=== PATIENT | male | born 1950 | race Two or more races ===

== ENCOUNTER 2018-09-26 14:07 | Inpatient (IN) | payer MEDICAID ==
[~2018-09-26] VITALS: Ht 167.6 cm; Wt 60.3 kg
[2018-09-26] VITALS (7 sets, daily range): BP systolic 86–113; BP diastolic 37–67
--- NOTE | 2018-09-26 12:29 | NUR ---
CASE MANAGEMENT: REVIEW 68/M BIBA FROM STREET CC: HEMATURIA SI: CYSTITIS . DEHYDRATION . HEMATURIA . ALCOHOL WITHDRAWAL T 99.9 HR 132 RR 13 BP 64/39 SAT 94% ROOM AIR WBC 20.2 H/H 13.3/41.2 LACTIC ACID 4.90 IS: NS IVF BOLUS X1 CEFTRIAXONE IV X1 PATIENT ADMITTED TO TELEMETRY UNIT 09/26/2018 DCP: PATIENT IS FROM STREET
[~2018-09-26 14:07] MED LIST: NKM
--- NOTE | 2018-09-26 14:15 | NUR ---
ED Nurse Note: brought in by ambulance from street due to hematuria since this morning. A/Ox4. No active bleeding at the site at this time.
[2018-09-26 14:43] LABS: HEMATOCRIT 41.2 % (42.0-52.0); HEMOGLOBIN 13.3 G/DL (14.2-18.0); MEAN CORPUSCULAR VOLUME 97 FL (80-99); PLATELET COUNT 112 K/UL (150-450); RED BLOOD COUNT 4.26 M/UL (4.70-6.10); RED CELL DISTRIBUTION WIDTH 16.4 % (11.6-14.8); WHITE BLOOD COUNT 20.2 K/UL (4.8-10.8)
[2018-09-26] MEDS ORDERED: Isovue-300 100ml vial INJ PRN (14:45)
[2018-09-26 14:57] LABS: INR 1.1 (0.9-1.1)
[2018-09-26 15:04] LABS: ANION GAP 25 mmol/L (5-15); BLOOD UREA NITROGEN 13 mg/dL (7-18); CALCIUM 8.8 MG/DL (8.5-10.1); CARBON DIOXIDE 14 MMOL/L (21-32); CHLORIDE 103 MMOL/L (98-107); CREATININE 2.3 MG/DL (0.55-1.30); POTASSIUM 3.2 MMOL/L (3.5-5.1); SODIUM 142 MMOL/L (136-145)
[2018-09-26 15:06] LABS: APPEARANCE,URINE CLOUDY; BILIRUBIN, URINE NEGATIVE (NEGATIVE); GLUCOSE, URINE (UA) NEGATIVE (NEGATIVE); KETONES,URINE 1+ (NEGATIVE); LEUKOCYTE ESTERASE ,URINE 3+ (NEGATIVE); NITRITE,URINE POSITIVE (NEGATIVE); PH,URINE 8 (4.5-8.0); PROTEIN,URINE 4+ (NEGATIVE); UROBILINOGEN,URINE 1 MG/DL (0.0-1.0)
[2018-09-26 15:14] LABS: ALANINE AMINOTRANSFERASE 39 U/L (12-78); ALBUMIN 3.2 G/DL (3.4-5.0); ALBUMIN/GLOBULIN RATIO 0.7 (1.0-2.7); ALKALINE PHOSPHATASE 122 U/L (46-116); ASPARTATE AMINO TRANSFERASE 115 U/L (15-37); BILIRUBIN,DIRECT 0.6 MG/DL (0.0-0.3); BILIRUBIN,TOTAL 1.2 MG/DL (0.2-1.0)
--- NOTE | 2018-09-26 15:28 | NUR ---
ED Nurse Note: pt sent down to CT via [facility]
[2018-09-26 15:35] LABS: COLOR,URINE ORANGE
[2018-09-26] MEDS ORDERED: cefTRIAXone 1 GM in NS 55 ML IVPB ONE (15:45)
--- NOTE | 2018-09-26 15:51 | NUR ---
ED Nurse Note: contacted sugar laboratory assistant to run type and screen
--- NOTE | 2018-09-26 17:31 | NUR ---
ED Nurse Note: LACTIC ACID AND BLOOD CULTURES SENT DOWN TO THE LAB.
[2018-09-26] MEDS ORDERED: D5 1/2NS 1,000 ML IV SCH (17:56)
[2018-09-26] MEDS ORDERED: Miralax 17gm pkt ORAL PRN (18:00)
[2018-09-26] MEDS ORDERED: Morphine Sulfate 2mg/ml Inj(IV/IM USE ONLY) IV PRN (18:00)
[2018-09-26] MEDS ORDERED: Mylanta II UD 30ml ORAL PRN (18:00)
[2018-09-26] MEDS ORDERED: Morphine Sulfate 2mg/ml Inj(IV/IM USE ONLY) IVP PRN (18:00)
[2018-09-26] MEDS ORDERED: Nitroglycerin Subl 0.4mg tab SL PRN (18:00)
--- NOTE | 2018-09-26 18:30 | NUR ---
ED Nurse Note: lactic acid reflex sent down to the lab.
--- NOTE | 2018-09-26 19:30 | NUR ---
HAND-OFF: Report given to YING Alexandre. No s/s of distress. Attempted to give telephone report to Tele, but unable to give report at this time.
--- NOTE | 2018-09-26 19:30 | NUR ---
ED Nurse Note: received report from RN Luann and endorsed care, pt sinus tach on clinical team manager, vss, resp even and unlabored on RA, attempted giving report to tele floor but won't accept pt due to lactic, ERMD and charge nurse notified.
--- NOTE | 2018-09-26 19:30 | NUR ---
ED Nurse Note: pt iv intact and valle cath intact.
--- NOTE | 2018-09-26 19:51 | NUR ---
Telemetry floor will not accept patient due to lactic acid astill high, per tele-at least below 4. Will hidrate patient and repeat lactic acid. aware.
--- NOTE | 2018-09-26 20:36 | NUR ---
ED Nurse Note: 3rd redraw lactic sent.
--- NOTE | 2018-09-26 20:47 | History & Physical ---
History and Physical History & Physicial Last 24 Hour Vital Signs Date Time Temp Pulse Resp B/P (MAP) Pulse Ox O2 Delivery O2 Flow Rate FiO2 09/26/18 19:15 130 20 Room Air 09/26/18 18:30 133 18 107/45 100 Room Air 09/26/18 16:20 130 15 89/53 100 Room Air 09/26/18 14:15 99.9 132 13 86/50 100 Room Air 09/26/18 14:07 99.9 114 18 64/39 94 Room Air The patient was seen and examined at bedside and all new and available data was reviewed in the patients chart. F/U Labs (Patient was seen earlier today. Signature timestamp does not reflect patient encounter time) Benjamin Bosch MD, MD Sep 26, 2018 20:47
[2018-09-26] MEDS ORDERED: Heparin 5000 units/ml inj SUBQ SCH (21:00)
--- NOTE | 2018-09-26 21:48 | Emergency Room Report ---
History of Present Illness General Chief Complaint: Male Urogenital Problems Source: Patient Present Illness HPI 68-year-old male presents to ED for evaluation. Brought in by EMS with hematuria 1 day. Also noted to be hypotensive. History of alcohol use. Denies any blood thinners. Denies pain. Denies fevers or chills. History is limited as per patient intoxication. No other aggravating relieving factors. Denies any other associated symptoms Allergies: Coded Allergies: No Known Allergies (Unverified , 09/06/15) Patient History Past Medical History: none Past Surgical History: none Pertinent Family History: none Social History: Reports: alcohol use; Denies: smoking, drug use Immunizations: UTD Reviewed Nursing Documentation: PMH: Agreed; PSxH: Agreed Nursing Documentation-PMH Past Medical History: No Stated History Review of Systems All Other Systems: negative except mentioned in HPI Physical Exam Vital Signs Date Time Temp Pulse Resp B/P (MAP) Pulse Ox O2 Delivery O2 Flow Rate FiO2 09/26/18 14:07 99.9 114 18 64/39 94 Room Air Sp02 EP Interpretation: reviewed, normal General Appearance: alert, GCS 15, non-toxic, other - tremulous Head: normocephalic, atraumatic Eyes: bilateral eye normal inspection, bilateral eye PERRL ENT: hearing grossly normal, normal pharynx, no angioedema, normal voice Neck: full range of motion, supple/symm/no masses Respiratory: chest non-tender, lungs clear, normal breath sounds, speaking full sentences Cardiovascular #1: regular rate, rhythm, no edema Cardiovascular #2: 2+ carotid (R), 2+ carotid (L), 2+ radial (R), 2+ radial (L) , 2+ dorsalis pedis (R), 2+ dorsalis pedis (L) Gastrointestinal: normal bowel sounds, non tender, soft, non-distended, no guarding, no rebound Rectal: deferred Genitourinary: normal inspection, no CVA tenderness Musculoskeletal: back normal, gait/station normal, normal range of motion, non- tender Neurologic: other - tremulous Psychiatric: anxious Reflexes: 3+ bicep (R), 3+ bicep (L), 3+ tricep (R), 3+ tricep (L), 3+ knee (R) , 3+ knee (L) Skin: normal color, no rash, warm/dry, well hydrated Lymphatic: no adenopathy Procedures Critical Care Time Critical Care Time i. I feel this is a highly complex case requiring extensive working including EKG/Rhythm strip, Xray/CT/US, Blood/urine lab work, repeat exams while in ED, and administration of strong opiates/narcotics for pain control, admission to hospital or close patient follow up. Total time: 60 min bedside evaluation and treatment excludes procedures (EKG). Reason for critical care: severe sepsis, alcohol withdrawal, kidney stones. pyelonephritis Possible complications: hypotension, hypertension, NV, shock, arrhythmias, metabolic acidosis, end organ damage, respiratory failure. Interventions: labs, IVFs, CT, broad spectrum abx, ativan Course: Patient brought in for hematuria, hypotensive and tachycardic. Alcohol level elevated. Significant leukocytosis. Lactate markedly elevated. Urine shows blood in bacteria. CT shows multiple kidney stones and perinephric stranding. Initially hypotensive improved with IV fluids. Given broad- spectrum antibiotics. Given Ativan Consultations: nursing staff, EMS, family Performed by: Dr Marquez Tolerated well condition = serious j. because of unstable vital signs this patient had a condition that could potentially threaten life or limb. I feel this is a critical patient who required my full attention while patient was considered critical. Total Critical Care Time excluding procedures was greater than 60 minutes Medical Decision Making Diagnostic Impression: Primary Impression: Kidney stones Additional Impressions: Pyelonephritis Severe sepsis Alcohol withdrawal Qualified Codes: F10.231 - Alcohol dependence with withdrawal delirium Renal insufficiency ER Course Hospital Course 68-year-old male presents ED for evaluation for hematuria, hypotensive, tachycardic. Differential diagnosis includes-appendicitis, cholecystitis, kidney stone, pyelonephritis Clinical course Patient placed on stretcher. After initial history and physical I ordered labs , IV fluids, CT A/P Labs - marked leukocytosis, BUN/creatinine elevated, lactic markedly elevated, UA positive blood positive bacteria CT scan shows multiple right-sided calculi obstructing. Bilateral perinephric stranding Patient initially hypotensive. Given 30 mL per KG fluid bolus. Blood pressure improved. Broad-spectrum antibiotics given. Patient remained somewhat tachycardic. Also appears tremulous on reassessment. Consideration for alcohol withdrawal. Given Ativan I feel this is a highly complex case requiring extensive working including EKG/ Rhythm strip, Xray/CT/US, Blood/urine lab work, repeat exams while in ED, and administration of strong opiates/narcotics for pain control, admission to hospital or close patient follow up. Diagnosis - kidney stone, pyelonephritis, severe sepsis, alcohol withdrawal, renal insufficiency Admitted to telemetry in serious condition Labs Test 09/26/18 14:31 09/26/18 14:41 09/26/18 14:50 09/26/18 17:15 White Blood Count 20.2 K/UL (4.8-10.8) Red Blood Count 4.26 M/UL (4.70-6.10) Hemoglobin 13.3 G/DL (14.2-18.0) Hematocrit 41.2 % (42.0-52.0) Mean Corpuscular Volume 97 FL (80-99) Mean Corpuscular Hemoglobin 31.3 PG (27.0-31.0) Mean Corpuscular Hemoglobin Concent 32.4 G/DL (32.0-36.0) Red Cell Distribution Width 16.4 % (11.6-14.8) Platelet Count 112 K/UL (150-450) Mean Platelet Volume 11.2 FL (6.5-10.1) Neutrophils (%) (Auto) % (45.0-75.0) Lymphocytes (%) (Auto) % (20.0-45.0) Monocytes (%) (Auto) % (1.0-10.0) Eosinophils (%) (Auto) % (0.0-3.0) Basophils (%) (Auto) % (0.0-2.0) Differential Total Cells Counted 100 Neutrophils % (Manual) 93 % (45-75) Lymphocytes % (Manual) 3 % (20-45) Monocytes % (Manual) 1 % (1-10) Eosinophils % (Manual) 0 % (0-3) Basophils % (Manual) 0 % (0-2) Band Neutrophils 3 % (0-8) Platelet Estimate Decreased Platelet Morphology Normal Anisocytosis 1+ Macrocytosis 1+ Prothrombin Time 11.9 SEC (9.30-11.50) Prothromb Time International Ratio 1.1 (0.9-1.1) Activated Partial Thromboplast Time 28 SEC (23-33) Sodium Level 142 MMOL/L (136-145) Potassium Level 3.2 MMOL/L (3.5-5.1) Chloride Level 103 MMOL/L (98-107) Carbon Dioxide Level 14 MMOL/L (21-32) Anion Gap 25 mmol/L (5-15) Blood Urea Nitrogen 13 mg/dL (7-18) Creatinine 2.3 MG/DL (0.55-1.30) Estimat Glomerular Filtration Rate 28.6 mL/min (>60) Glucose Level 111 MG/DL (74-106) Calcium Level 8.8 MG/DL (8.5-10.1) Total Bilirubin 1.2 MG/DL (0.2-1.0) Direct Bilirubin 0.6 MG/DL (0.0-0.3) Aspartate Amino Transf (AST/SGOT) 115 U/L (15-37) Alanine Aminotransferase (ALT/SGPT) 39 U/L (12-78) Alkaline Phosphatase 122 U/L (46-116) Total Protein 7.5 G/DL (6.4-8.2) Albumin 3.2 G/DL (3.4-5.0) Globulin 4.3 g/dL Albumin/Globulin Ratio 0.7 (1.0-2.7) Lipase 230 U/L (73-393) Serum Alcohol 142 mg/dL Urine Color [place] Urine Appearance Cloudy Urine pH 8 (4.5-8.0) Urine Specific [place] 1.020 (1.005-1.035) Urine Protein 4+ (NEGATIVE) Urine Glucose (UA) Negative (NEGATIVE) Urine Ketones 1+ (NEGATIVE) Urine Blood 5+ (NEGATIVE) Urine Nitrite Positive (NEGATIVE) Urine Bilirubin Negative (NEGATIVE) Urine Urobilinogen 1 MG/DL (0.0-1.0) Urine Leukocyte Esterase 3+ (NEGATIVE) Urine RBC 60-80 /HPF (0 - 0) Urine WBC 15-20 /HPF (0 - 0) Urine Squamous Epithelial Cells Occasional /LPF Urine Triple Phosphate Crystals Moderate /LPF (NONE) Urine Amorphous Sediment Moderate /LPF (NONE) Urine Bacteria Many /HPF (NONE) Lactic Acid Level 7.30 mmol/L (0.4-2.0) Test 09/26/18 18:30 09/26/18 20:36 Lactic Acid Level 6.90 mmol/L (0.66-2.22) 5.40 mmol/L (0.4-2.0) CT/MRI/US Diagnostic Results CT/MRI/US Diagnostic Results : Imaging Test Ordered: CT A/P Impression Extensive urinary stone disease on the right with 2 calculi in the distal ureter , 2 large calculi in the renal pelvis and multiple large intrarenal calculi. No hydronephrosis or hydroureter. Bilateral perinephric fat stranding Last Vital Signs Date Time Temp Pulse Resp B/P (MAP) Pulse Ox O2 Delivery O2 Flow Rate FiO2 09/26/18 19:15 130 20 Room Air 09/26/18 18:30 107/45 100 09/26/18 14:15 99.9 Status: improved Disposition: ADMITTED INPATIENT Condition: Serious Referrals: AMARA KISER,REFERRING (PCP) Travis Marquez MD Sep 26, 2018 21:48
[2018-09-26] MEDS ORDERED: LORazepam Inj 2mg/ml 1ml IV ONE (22:00)
[2018-09-26] MEDS ORDERED: Piperacillin/Tazobactam 3.375 GM in D5W 110 ML IVPB ONE (22:00)
--- NOTE | 2018-09-26 22:30 | NUR ---
ED Nurse Note: 4th lactic sent.
[2018-09-27] VITALS: BP 122/42
--- NOTE | 2018-09-27 | NUR ---
NURSE NOTES: Received pt from ED via gurney. Pt is awake, AOx1. Pt is very confused and restless. Placed on account executive software sales showing ST in the 120s. Oriented pt to room and unit. Bed in lowest position, call light within reach. Admission orders noted and carried out.
--- NOTE | 2018-09-27 00:05 | NUR ---
ED Nurse Note: noted pt trying to pull valle, pt states he needs to go pee, pt was reoriented reality and educated, pt hands wrapped with roller gauze, will continue to closely monitor.
--- NOTE | 2018-09-27 00:10 | NUR ---
ED Nurse Note: report given to YING Matta and endorsed care, pt tranferred to tele, Sinus tach on rn cardiac rehab, vss, o2=4L via NC sat 95%, valle and iv intact, all belonging sent w/ pt.
[2018-09-27] MEDS: chlordiazePOXIDE 25mg Cap ORAL PRN ×2 (02:05→11:22)
[2018-09-27] MEDS: LORazepam Inj 2mg/ml 1ml IV PRN ×4 (03:03→18:31)
[2018-09-27 04:00] VITALS: BP 132/80
--- NOTE | 2018-09-27 07:00 | NUR ---
NURSE NOTES: Pt pulled out his valle catheter, no bleeding noted. Pt had an episode of SVT in the 150s, asymptomatic. Pt is still very restless and confused. Left MD a voicemail. Awaiting for call back. Endorsed to next shift.
--- NOTE | 2018-09-27 07:31 | NUR ---
HAND-OFF: Report given to YING Osuna and YING Robles.
--- NOTE | 2018-09-27 07:32 | NUR ---
NURSE NOTES: Received report from Felipe/RN, Patient is confused, Pashto speaker, Helder/RN at bedside. Will continue plan of care.
[2018-09-27 07:51] LABS: HEMATOCRIT 35.9 % (42.0-52.0); HEMOGLOBIN 11.5 G/DL (14.2-18.0); MEAN CORPUSCULAR VOLUME 97 FL (80-99); PLATELET COUNT 80 K/UL (150-450); RED BLOOD COUNT 3.71 M/UL (4.70-6.10); RED CELL DISTRIBUTION WIDTH 16.4 % (11.6-14.8)
[2018-09-27 07:52] LABS: WHITE BLOOD COUNT 30.8 K/UL (4.8-10.8)
--- NOTE | 2018-09-27 07:57 | NUR ---
NURSE NOTES: Received Lab report from Radha regarding his WBC 30.8, Notified Dr. Petty, and awaiting for response.
[2018-09-27 08:00] VITALS: BP 126/84
[2018-09-27] MEDS ORDERED: clonazePAM 0.5mg tab ORAL PRN ×3 (08:00→20:00)
[2018-09-27 08:27] LABS: ALANINE AMINOTRANSFERASE 27 U/L (12-78); ALBUMIN 2.7 G/DL (3.4-5.0); ALBUMIN/GLOBULIN RATIO 0.7 (1.0-2.7); ALKALINE PHOSPHATASE 67 U/L (46-116); AMYLASE 298 U/L (25-115); ANION GAP 18 mmol/L (5-15); ASPARTATE AMINO TRANSFERASE 58 U/L (15-37); BILIRUBIN,TOTAL 0.8 MG/DL (0.2-1.0); BLOOD UREA NITROGEN 17 mg/dL (7-18); CARBON DIOXIDE 15 MMOL/L (21-32); CHLORIDE 107 MMOL/L (98-107); CREATININE 1.9 MG/DL (0.55-1.30); SODIUM 140 MMOL/L (136-145)
[2018-09-27] MEDS ORDERED: Thiamine 100mg tab ORAL SCH (09:00)
[2018-09-27] MEDS ORDERED: cefTRIAXone 1 GM in D5W 55 ML IVPB SCH (09:00)
--- NOTE | 2018-09-27 09:55 | NUR ---
NURSE NOTES: Informed Dr. Sterling that patient noted with Mg=0.6 and new order carried out. Will continue plan of care.
--- NOTE | 2018-09-27 10:48 | History and Physical ---
History of Present Illness General Date patient seen: Sep 27, 2018 Reason for Hospitalization: Male Urogenital Problems Present Illness HPI 68-year-old male with hx of ETOh abuse presented to ED for evaluation of hematuria 1 day. Also noted to be hypotensive. Denies any blood thinners. Denies pain. Denies fevers or chills. His ETOH level was 142. Allergies: Coded Allergies: No Known Allergies (Unverified , 09/06/15) Medication History Scheduled No Known Medications* (NKM - No Known Medications*), 0 ., (Reported) Patient History Healthcare decision maker Resuscitation status Full Code Advanced Directive on File Past Medical/Surgical History Past Medical/Surgical History: (1) Alcohol withdrawal (2) Kidney stones Review of Systems All Other Systems: negative except mentioned in HPI Physical Exam General Appearance: WD/WN, confused Lines, tubes and drains: peripheral HEENT: normocephalic, atraumatic Neck: non-tender, supple Respiratory/Chest: chest wall non-tender, lungs clear Cardiovascular/Chest: normal peripheral pulses Abdomen: normal bowel sounds Last 24 Hour Vital Signs Date Time Temp Pulse Resp B/P (MAP) Pulse Ox O2 Delivery O2 Flow Rate FiO2 09/27/18 04:00 128 09/27/18 04:00 97.9 128 22 132/80 (97) 94 09/27/18 00:10 99.5 132 25 120/57 96 Nasal Cannula 4.0 09/27/18 00:00 128 24 122/42 96 Nasal Cannula 4.0 09/26/18 23:35 Nasal Cannula 3.0 09/26/18 23:30 118 24 99/59 96 Nasal Cannula 4.0 09/26/18 23:30 98.4 127 18 113/67 (82) 94 09/26/18 23:30 127 09/26/18 20:30 97.5 128 20 87/37 96 Nasal Cannula 4.0 09/26/18 20:00 98.4 130 19 102/67 98 Room Air 09/26/18 19:30 98.9 129 20 89/48 98 Room Air 09/26/18 19:15 130 20 Room Air 09/26/18 18:30 133 18 107/45 100 Room Air 09/26/18 16:20 130 15 89/53 100 Room Air 09/26/18 14:15 99.9 132 13 86/50 100 Room Air 09/26/18 14:07 99.9 114 18 64/39 94 Room Air Intake and Output 09/26/18 09/27/18 19:00 07:00 Intake Total 1000 ml Output Total 500 ml Balance 1000 ml -500 ml Intake IV Total 1000 ml Output Urine Total 500 ml # Voids 1 3 # Bowel Movements 1 Laboratory Tests Test 09/26/18 14:31 09/26/18 14:41 09/26/18 14:50 09/26/18 17:15 White Blood Count 20.2 K/UL (4.8-10.8) H Red Blood Count 4.26 M/UL (4.70-6.10) L Hemoglobin 13.3 G/DL (14.2-18.0) L Hematocrit 41.2 % (42.0-52.0) L Mean Corpuscular Volume 97 FL (80-99) Mean Corpuscular Hemoglobin 31.3 PG (27.0-31.0) H Mean Corpuscular Hemoglobin Concent 32.4 G/DL (32.0-36.0) Red Cell Distribution Width 16.4 % (11.6-14.8) H Platelet Count 112 K/UL (150-450) L Mean Platelet Volume 11.2 FL (6.5-10.1) H Neutrophils (%) (Auto) % (45.0-75.0) Lymphocytes (%) (Auto) % (20.0-45.0) Monocytes (%) (Auto) % (1.0-10.0) Eosinophils (%) (Auto) % (0.0-3.0) Basophils (%) (Auto) % (0.0-2.0) Differential Total Cells Counted 100 Neutrophils % (Manual) 93 % (45-75) H Lymphocytes % (Manual) 3 % (20-45) L Monocytes % (Manual) 1 % (1-10) Eosinophils % (Manual) 0 % (0-3) Basophils % (Manual) 0 % (0-2) Band Neutrophils 3 % (0-8) Platelet Estimate Decreased L Platelet Morphology Normal Anisocytosis 1+ Macrocytosis 1+ Prothrombin Time 11.9 SEC (9.30-11.50) H Prothromb Time International Ratio 1.1 (0.9-1.1) Activated Partial Thromboplast Time 28 SEC (23-33) Sodium Level 142 MMOL/L (136-145) Potassium Level 3.2 MMOL/L (3.5-5.1) L Chloride Level 103 MMOL/L (98-107) Carbon Dioxide Level 14 MMOL/L (21-32) L Anion Gap 25 mmol/L (5-15) H Blood Urea Nitrogen 13 mg/dL (7-18) Creatinine 2.3 MG/DL (0.55-1.30) H Estimat Glomerular Filtration Rate 28.6 mL/min (>60) Glucose Level 111 MG/DL (74-106) H Calcium Level 8.8 MG/DL (8.5-10.1) Total Bilirubin 1.2 MG/DL (0.2-1.0) H Direct Bilirubin 0.6 MG/DL (0.0-0.3) H Aspartate Amino Transf (AST/SGOT) 115 U/L (15-37) H Alanine Aminotransferase (ALT/SGPT) 39 U/L (12-78) Alkaline Phosphatase 122 U/L (46-116) H Total Protein 7.5 G/DL (6.4-8.2) Albumin 3.2 G/DL (3.4-5.0) L Globulin 4.3 g/dL Albumin/Globulin Ratio 0.7 (1.0-2.7) L Lipase 230 U/L (73-393) Serum Alcohol 142 mg/dL Urine Color [place] Urine Appearance Cloudy Urine pH 8 (4.5-8.0) Urine Specific [place] 1.020 (1.005-1.035) Urine Protein 4+ (NEGATIVE) H Urine Glucose (UA) Negative (NEGATIVE) Urine Ketones 1+ (NEGATIVE) H Urine Blood 5+ (NEGATIVE) H Urine Nitrite Positive (NEGATIVE) H Urine Bilirubin Negative (NEGATIVE) Urine Urobilinogen 1 MG/DL (0.0-1.0) H Urine Leukocyte Esterase 3+ (NEGATIVE) H Urine RBC 60-80 /HPF (0 - 0) H Urine WBC 15-20 /HPF (0 - 0) H Urine Squamous Epithelial Cells Occasional /LPF Urine Triple Phosphate Crystals Moderate /LPF (NONE) H Urine Amorphous Sediment Moderate /LPF (NONE) H Urine Bacteria Many /HPF (NONE) H Lactic Acid Level 7.30 mmol/L (0.4-2.0) H Test 09/26/18 18:30 09/26/18 20:36 09/26/18 22:26 09/27/18 06:04 Lactic Acid Level 6.90 mmol/L (0.66-2.22) H 5.40 mmol/L (0.4-2.0) H 4.80 mmol/L (0.66-2.22) H 4.90 mmol/L (0.4-2.0) H White Blood Count 30.8 K/UL (4.8-10.8) #*H Red Blood Count 3.71 M/UL (4.70-6.10) L Hemoglobin 11.5 G/DL (14.2-18.0) L Hematocrit 35.9 % (42.0-52.0) L Mean Corpuscular Volume 97 FL (80-99) Mean Corpuscular Hemoglobin 31.0 PG (27.0-31.0) Mean Corpuscular Hemoglobin Concent 32.1 G/DL (32.0-36.0) Red Cell Distribution Width 16.4 % (11.6-14.8) H Platelet Count 80 K/UL (150-450) L Mean Platelet Volume 10.6 FL (6.5-10.1) H Neutrophils (%) (Auto) % (45.0-75.0) Lymphocytes (%) (Auto) % (20.0-45.0) Monocytes (%) (Auto) % (1.0-10.0) Eosinophils (%) (Auto) % (0.0-3.0) Basophils (%) (Auto) % (0.0-2.0) Differential Total Cells Counted 100 Neutrophils % (Manual) 75 % (45-75) Lymphocytes % (Manual) 6 % (20-45) L Monocytes % (Manual) 4 % (1-10) Eosinophils % (Manual) 0 % (0-3) Basophils % (Manual) 0 % (0-2) Metamyelocytes % 1 % (0-0) H Band Neutrophils 14 % (0-8) H Platelet Estimate Decreased L Platelet Morphology Normal Activated Partial Thromboplast Time 39 SEC (23-33) H Sodium Level 140 MMOL/L (136-145) Potassium Level 4.0 MMOL/L (3.5-5.1) Chloride Level 107 MMOL/L (98-107) Carbon Dioxide Level 15 MMOL/L (21-32) L Anion Gap 18 mmol/L (5-15) H Blood Urea Nitrogen 17 mg/dL (7-18) Creatinine 1.9 MG/DL (0.55-1.30) H Estimat Glomerular Filtration Rate 35.6 mL/min (>60) Glucose Level 81 MG/DL (74-106) Calcium Level 7.0 MG/DL (8.5-10.1) #L Magnesium Level 0.6 MG/DL (1.8-2.4) *L Total Bilirubin 0.8 MG/DL (0.2-1.0) Aspartate Amino Transf (AST/SGOT) 58 U/L (15-37) H Alanine Aminotransferase (ALT/SGPT) 27 U/L (12-78) Alkaline Phosphatase 67 U/L (46-116) Total Protein 6.6 G/DL (6.4-8.2) Albumin 2.7 G/DL (3.4-5.0) L Globulin 3.9 g/dL Albumin/Globulin Ratio 0.7 (1.0-2.7) L Amylase Level 298 U/L (25-115) H Lipase 55 U/L (73-393) L Test 09/27/18 09:15 Lactic Acid Level 3.90 mmol/L (0.66-2.22) H Height (Feet): 5 Height (Inches): 6.00 Weight (Pounds): 154 Medications Current Medications Medications (Trade) Dose Ordered Sig/Hoa Route PRN Reason Start Time Stop Time Status Last Admin Dose Admin Acetaminophen (Tylenol) 650 mg Q4H PRN ORAL fever (temp>100.5F) 09/26/18 18:00 10/26/18 17:59 Al Hydroxide/Mg Hydroxide (Mylanta II) 30 ml Q6H PRN ORAL dyspepsia 09/26/18 18:00 10/26/18 17:59 Ceftriaxone Sodium 1 gm/ Dextrose 55 ml @ 110 mls/hr DAILY IVPB 09/27/18 09:00 10/04/18 08:59 09/27/18 09:37 Chlordiazepoxide (Librium) 25 mg THREE TIMES A DAY PRN ORAL Agitation 09/27/18 01:15 10/04/18 01:14 09/27/18 02:05 Clonazepam (KlonoPIN) 0.5 mg Q6H PRN ORAL For Anxiety 09/27/18 08:00 10/04/18 07:59 09/27/18 10:36 Clonazepam (KlonoPIN) 0.5 mg Q6H PRN ORAL For Anxiety 09/27/18 10:45 10/04/18 10:44 UNV Dextrose (Dextrose 50%) Q30M PRN IV Hypoglycemia 09/26/18 18:00 10/26/18 17:59 Dextrose (Dextrose 50%) 50 ml Q30M PRN IV Hypoglycemia 09/26/18 18:00 10/26/18 17:59 Dextrose/Sodium Chloride 1,000 ml @ 75 mls/hr [id number] IV 09/26/18 17:56 10/26/18 17:55 09/26/18 23:52 Diphenhydramine HCl (Benadryl) 25 mg Q6H PRN ORAL Itching/Pruritis 09/26/18 18:00 10/26/18 17:59 Famotidine (Pepcid I.v.) 20 mg DAILY IVP 09/26/18 21:00 10/26/18 20:59 09/27/18 08:18 Folic Acid (Folate) 1 mg DAILY ORAL 09/27/18 09:00 10/27/18 08:59 09/27/18 09:04 Iopamidol (Isovue-300 100ml) 100 ml NOW PRN INJ Radiology Procedure 09/26/18 14:45 09/28/18 14:44 Lorazepam (Ativan 2mg/ml 1ml) 1 mg Q4H PRN IV For Anxiety 09/27/18 01:15 10/04/18 01:14 09/27/18 08:18 Magnesium Sulfate 100 ml @ 100 mls/hr Q1H IVPB 09/27/18 11:00 09/27/18 14:59 09/27/18 10:13 Morphine Sulfate (Morphine Sulfate) 2 mg Q4H PRN IVP Moderate Pain (Pain Scale 4-6) 09/26/18 18:00 10/03/18 17:59 09/26/18 19:54 Morphine Sulfate (Morphine Sulfate) 4 mg Q2H PRN IV For Pain (7-10) 09/26/18 18:00 10/03/18 17:59 Nitroglycerin (Ntg) 0.4 mg Q5M X 3 DOSES PRN SL Prn Chest Pain 09/26/18 18:00 10/26/18 17:59 Ondansetron HCl (Zofran) 4 mg Q6H PRN IVP Nausea & Vomiting 09/26/18 18:00 10/26/18 17:59 Polyethylene Glycol (Miralax) 17 gm HSPRN PRN ORAL Constipation 09/26/18 18:00 10/26/18 17:59 Quetiapine Fumarate (SEROquel) 25 mg Q12HR ORAL 09/27/18 09:00 10/27/18 08:59 09/27/18 08:18 Quetiapine Fumarate (SEROquel) 25 mg Q12HR ORAL 09/27/18 10:45 10/27/18 10:44 UNV Temazepam (Restoril) 15 mg HSPRN PRN ORAL Insomnia 09/26/18 18:00 10/03/18 17:59 Thiamine HCl (Vitamin B1) 100 mg DAILY ORAL 09/27/18 09:00 10/27/18 08:59 09/27/18 09:04 Assessment/Plan Problem List: (1) Severe sepsis ICD Codes: A41.9 - Sepsis, unspecified organism; R65.20 - Severe sepsis without septic shock SNOMED: 00056940 (2) Acute alcoholic intoxication ICD Codes: F10.129 - Alcohol abuse with intoxication, unspecified SNOMED: 64351762 (3) Nephrolithiasis ICD Codes: N20.0 - Calculus of kidney SNOMED: 29731720 (4) Hematuria ICD Codes: R31.9 - Hematuria, unspecified SNOMED: 23671504 Assessment/Plan fernandez cultures iv abx banana bag Librium, Seroquel and Klonipine iv abx, ID evaluation Garret Petty MD Sep 27, 2018 10:48
--- NOTE | 2018-09-27 11:05 | NUR ---
NURSE NOTES: Informed Dr. Petty regarding episode of SVT 150 last night, pulled out valle catheter and wheezing lung sound with new orders.
[2018-09-27 11:06] LABS: CREATINE KINASE 533 U/L (26-308)
[2018-09-27] MEDS: dilTIAZem HCl 25mg/5ml Inj IV PRN ×4 (11:28→21:36)
[2018-09-27 12:00] VITALS: BP 120/75
--- NOTE | 2018-09-27 12:34 | NUR ---
CASE MANAGEMENT: REVIEW SI: CYSTITIS . DEHYDRATION . HEMATURIA . ALCOHOL WITHDRAWAL T 99.5 HR 132 RR 25 BP 120/57 SAT 96% NC/4L WBC 30.8 H/H 11.5/35.9 CR 1.5 MAG 0.6 IS: MAG SULFATE IV @100ML/HR CEFTRIAXONE IV QD THIAMINE PO QD TELEMETRY UNIT STATUS DCP: PATIENT IS FROM STREET
[2018-09-27] MEDS ORDERED: Ipratropium 0.02% Inh Soln 2.5ml UD HHN PRN ×2 (13:00→20:00)
--- NOTE | 2018-09-27 13:00 | NUR ---
NURSE NOTES: Informed Dr. Petty. Patient noted with SOB and O2sat 87%-92 with 4L/min via NC. New orders carried out. Will continue plan of care.
--- NOTE | 2018-09-27 14:29 | Internal Med Progress Note ---
Subjective Date of Service: Sep 27, 2018 Physician Name Sanofrd Castellano Attending Physician Benjamin Sterling MD Current Medications Medications (Trade) Dose Ordered Sig/Hoa Route PRN Reason Start Time Stop Time Status Last Admin Dose Admin Acetaminophen (Tylenol) 650 mg Q4H PRN ORAL fever (temp>100.5F) 09/26/18 18:00 10/26/18 17:59 Al Hydroxide/Mg Hydroxide (Mylanta II) 30 ml Q6H PRN ORAL dyspepsia 09/26/18 18:00 10/26/18 17:59 Ceftriaxone Sodium 1 gm/ Dextrose 55 ml @ 110 mls/hr DAILY IVPB 09/27/18 09:00 10/04/18 08:59 09/27/18 09:37 Chlordiazepoxide (Librium) 25 mg THREE TIMES A DAY PRN ORAL Agitation 09/27/18 01:15 10/04/18 01:14 09/27/18 11:22 Clonazepam (KlonoPIN) 0.5 mg Q6H PRN ORAL For Anxiety 09/27/18 08:00 10/04/18 07:59 09/27/18 10:36 Dextrose (Dextrose 50%) Q30M PRN IV Hypoglycemia 09/26/18 18:00 10/26/18 17:59 Dextrose (Dextrose 50%) 50 ml Q30M PRN IV Hypoglycemia 09/26/18 18:00 10/26/18 17:59 Diltiazem HCl (Cardizem) 10 mg Q1H PRN IV heart rate more than 120 09/27/18 11:00 10/27/18 10:59 09/27/18 11:28 Diphenhydramine HCl (Benadryl) 25 mg Q6H PRN ORAL Itching/Pruritis 09/26/18 18:00 10/26/18 17:59 Famotidine (Pepcid I.v.) 20 mg DAILY IVP 09/26/18 21:00 10/26/18 20:59 09/27/18 08:18 Folic Acid (Folate) 1 mg DAILY ORAL 09/27/18 09:00 10/27/18 08:59 09/27/18 09:04 Iopamidol (Isovue-300 100ml) 100 ml NOW PRN INJ Radiology Procedure 09/26/18 14:45 09/28/18 14:44 Ipratropium [place] (Atrovent) 500 mcg Q4H PRN HHN Shortness of Breath 09/27/18 13:00 10/02/18 12:59 Lorazepam (Ativan 2mg/ml 1ml) 1 mg Q4H PRN IV For Anxiety 09/27/18 01:15 10/04/18 01:14 09/27/18 13:09 Magnesium Sulfate 100 ml @ 100 mls/hr Q1H IVPB 09/27/18 11:00 09/27/18 14:59 09/27/18 14:21 Morphine Sulfate (Morphine Sulfate) 4 mg Q2H PRN IV For Pain (7-10) 09/26/18 18:00 10/03/18 17:59 Ondansetron HCl (Zofran) 4 mg Q6H PRN IVP Nausea & Vomiting 09/26/18 18:00 10/26/18 17:59 Quetiapine Fumarate (SEROquel) 25 mg Q12HR ORAL 09/27/18 09:00 10/27/18 08:59 09/27/18 08:18 Temazepam (Restoril) 15 mg HSPRN PRN ORAL Insomnia 09/26/18 18:00 10/03/18 17:59 Thiamine HCl (Vitamin B1) 100 mg DAILY ORAL 09/27/18 09:00 10/27/18 08:59 09/27/18 09:04 Allergies: Coded Allergies: No Known Allergies (Unverified , 09/06/15) ROS Limited/Unobtainable: No Constitutional: Reports: no symptoms HEENT: Reports: no symptoms Cardiovascular: Reports: no symptoms Respiratory: Reports: no symptoms Gastrointestinal/Abdominal: Reports: no symptoms Genitourinary: Reports: hematuria Neurologic/Psychiatric: Reports: no symptoms Subjective 68 YO M admitted with hematuria and hypotension. Cover for Int [facility]-Dr Sterling Objective Last Vital Signs Date Time Temp Pulse Resp B/P (MAP) Pulse Ox O2 Delivery O2 Flow Rate FiO2 09/27/18 12:00 140 09/27/18 12:00 97.3 20 120/75 (90) 90 09/27/18 09:00 Nasal Cannula 3.0 General Appearance: WD/WN, no apparent distress, alert EENT: PERRL/EOMI, normal ENT inspection, TMs normal Neck: non-tender, normal alignment, supple, normal inspection Cardiovascular: normal peripheral pulses, normal rate, no gallop/murmur, no JVD Respiratory/Chest: chest wall non-tender, lungs clear, normal breath sounds, no respiratory distress, no accessory muscle use Abdomen: normal bowel sounds, non tender, soft, no organomegaly, no mass Extremities: normal range of motion, non-tender Neurologic: silver wrapper II-XII grossly normal, no motor/sensory deficits Laboratory Tests Test 09/26/18 14:31 09/26/18 14:41 09/26/18 14:50 09/26/18 17:15 White Blood Count 20.2 K/UL (4.8-10.8) H Red Blood Count 4.26 M/UL (4.70-6.10) L Hemoglobin 13.3 G/DL (14.2-18.0) L Hematocrit 41.2 % (42.0-52.0) L Mean Corpuscular Volume 97 FL (80-99) Mean Corpuscular Hemoglobin 31.3 PG (27.0-31.0) H Mean Corpuscular Hemoglobin Concent 32.4 G/DL (32.0-36.0) Red Cell Distribution Width 16.4 % (11.6-14.8) H Platelet Count 112 K/UL (150-450) L Mean Platelet Volume 11.2 FL (6.5-10.1) H Neutrophils (%) (Auto) % (45.0-75.0) Lymphocytes (%) (Auto) % (20.0-45.0) Monocytes (%) (Auto) % (1.0-10.0) Eosinophils (%) (Auto) % (0.0-3.0) Basophils (%) (Auto) % (0.0-2.0) Differential Total Cells Counted 100 Neutrophils % (Manual) 93 % (45-75) H Lymphocytes % (Manual) 3 % (20-45) L Monocytes % (Manual) 1 % (1-10) Eosinophils % (Manual) 0 % (0-3) Basophils % (Manual) 0 % (0-2) Band Neutrophils 3 % (0-8) Platelet Estimate Decreased L Platelet Morphology Normal Anisocytosis 1+ Macrocytosis 1+ Prothrombin Time 11.9 SEC (9.30-11.50) H Prothromb Time International Ratio 1.1 (0.9-1.1) Activated Partial Thromboplast Time 28 SEC (23-33) Sodium Level 142 MMOL/L (136-145) Potassium Level 3.2 MMOL/L (3.5-5.1) L Chloride Level 103 MMOL/L (98-107) Carbon Dioxide Level 14 MMOL/L (21-32) L Anion Gap 25 mmol/L (5-15) H Blood Urea Nitrogen 13 mg/dL (7-18) Creatinine 2.3 MG/DL (0.55-1.30) H Estimat Glomerular Filtration Rate 28.6 mL/min (>60) Glucose Level 111 MG/DL (74-106) H Calcium Level 8.8 MG/DL (8.5-10.1) Total Bilirubin 1.2 MG/DL (0.2-1.0) H Direct Bilirubin 0.6 MG/DL (0.0-0.3) H Aspartate Amino Transf (AST/SGOT) 115 U/L (15-37) H Alanine Aminotransferase (ALT/SGPT) 39 U/L (12-78) Alkaline Phosphatase 122 U/L (46-116) H Total Protein 7.5 G/DL (6.4-8.2) Albumin 3.2 G/DL (3.4-5.0) L Globulin 4.3 g/dL Albumin/Globulin Ratio 0.7 (1.0-2.7) L Lipase 230 U/L (73-393) Serum Alcohol 142 mg/dL Urine Color [place] Urine Appearance Cloudy Urine pH 8 (4.5-8.0) Urine Specific [place] 1.020 (1.005-1.035) Urine Protein 4+ (NEGATIVE) H Urine Glucose (UA) Negative (NEGATIVE) Urine Ketones 1+ (NEGATIVE) H Urine Blood 5+ (NEGATIVE) H Urine Nitrite Positive (NEGATIVE) H Urine Bilirubin Negative (NEGATIVE) Urine Urobilinogen 1 MG/DL (0.0-1.0) H Urine Leukocyte Esterase 3+ (NEGATIVE) H Urine RBC 60-80 /HPF (0 - 0) H Urine WBC 15-20 /HPF (0 - 0) H Urine Squamous Epithelial Cells Occasional /LPF Urine Triple Phosphate Crystals Moderate /LPF (NONE) H Urine Amorphous Sediment Moderate /LPF (NONE) H Urine Bacteria Many /HPF (NONE) H Lactic Acid Level 7.30 mmol/L (0.4-2.0) H Test 09/26/18 18:30 09/26/18 20:36 09/26/18 22:26 09/27/18 06:04 Lactic Acid Level 6.90 mmol/L (0.66-2.22) H 5.40 mmol/L (0.4-2.0) H 4.80 mmol/L (0.66-2.22) H 4.90 mmol/L (0.4-2.0) H White Blood Count 30.8 K/UL (4.8-10.8) #*H Red Blood Count 3.71 M/UL (4.70-6.10) L Hemoglobin 11.5 G/DL (14.2-18.0) L Hematocrit 35.9 % (42.0-52.0) L Mean Corpuscular Volume 97 FL (80-99) Mean Corpuscular Hemoglobin 31.0 PG (27.0-31.0) Mean Corpuscular Hemoglobin Concent 32.1 G/DL (32.0-36.0) Red Cell Distribution Width 16.4 % (11.6-14.8) H Platelet Count 80 K/UL (150-450) L Mean Platelet Volume 10.6 FL (6.5-10.1) H Neutrophils (%) (Auto) % (45.0-75.0) Lymphocytes (%) (Auto) % (20.0-45.0) Monocytes (%) (Auto) % (1.0-10.0) Eosinophils (%) (Auto) % (0.0-3.0) Basophils (%) (Auto) % (0.0-2.0) Differential Total Cells Counted 100 Neutrophils % (Manual) 75 % (45-75) Lymphocytes % (Manual) 6 % (20-45) L Monocytes % (Manual) 4 % (1-10) Eosinophils % (Manual) 0 % (0-3) Basophils % (Manual) 0 % (0-2) Metamyelocytes % 1 % (0-0) H Band Neutrophils 14 % (0-8) H Platelet Estimate Decreased L Platelet Morphology Normal Activated Partial Thromboplast Time 39 SEC (23-33) H Sodium Level 140 MMOL/L (136-145) Potassium Level 4.0 MMOL/L (3.5-5.1) Chloride Level 107 MMOL/L (98-107) Carbon Dioxide Level 15 MMOL/L (21-32) L Anion Gap 18 mmol/L (5-15) H Blood Urea Nitrogen 17 mg/dL (7-18) Creatinine 1.9 MG/DL (0.55-1.30) H Estimat Glomerular Filtration Rate 35.6 mL/min (>60) Glucose Level 81 MG/DL (74-106) Uric Acid 6.8 MG/DL (2.6-7.2) Calcium Level 7.0 MG/DL (8.5-10.1) #L Magnesium Level 0.6 MG/DL (1.8-2.4) *L Total Bilirubin 0.8 MG/DL (0.2-1.0) Aspartate Amino Transf (AST/SGOT) 58 U/L (15-37) H Alanine Aminotransferase (ALT/SGPT) 27 U/L (12-78) Alkaline Phosphatase 67 U/L (46-116) Total Creatine Kinase 533 U/L (26-308) H Total Protein 6.6 G/DL (6.4-8.2) Albumin 2.7 G/DL (3.4-5.0) L Globulin 3.9 g/dL Albumin/Globulin Ratio 0.7 (1.0-2.7) L Amylase Level 298 U/L (25-115) H Lipase 55 U/L (73-393) L Test 09/27/18 09:15 Lactic Acid Level 3.90 mmol/L (0.66-2.22) H Intake and Output 09/26/18 09/27/18 19:00 07:00 Intake Total 1000 ml Output Total 500 ml Balance 1000 ml -500 ml Intake IV Total 1000 ml Output Urine Total 500 ml # Voids 1 3 # Bowel Movements 1 Assessment/Plan Assessment/Plan Assessment/Plan Assessment/Plan Problem List: (1) Severe sepsis ICD Codes: A41.9 - Sepsis, unspecified organism; R65.20 - Severe sepsis without septic shock SNOMED: 10720803 (2) Acute alcoholic intoxication ICD Codes: F10.129 - Alcohol abuse with intoxication, unspecified SNOMED: 04965961 (3) Nephrolithiasis ICD Codes: N20.0 - Calculus of kidney SNOMED: 33617026 (4) Hematuria ICD Codes: R31.9 - Hematuria, unspecified SNOMED: 09273863 Assessment/Plan fernandez cultures iv abx banana bag Librium, Seroquel and Klonipin iv abx, ID evaluation Sanford Castellano MD Sep 27, 2018 14:29
--- NOTE | 2018-09-27 14:45 | Cardiology Progress Note ---
Assessment/Plan Assessment/Plan [id number] Objective Last 24 Hour Vital Signs Date Time Temp Pulse Resp B/P (MAP) Pulse Ox O2 Delivery O2 Flow Rate FiO2 09/27/18 12:00 140 09/27/18 12:00 97.3 120 20 120/75 (90) 90 09/27/18 11:28 156 132/80 09/27/18 09:00 Nasal Cannula 3.0 09/27/18 08:00 120 09/27/18 08:00 99.3 123 20 126/84 (98) 90 09/27/18 04:00 128 09/27/18 04:00 97.9 128 22 132/80 (97) 94 09/27/18 00:10 99.5 132 25 120/57 96 Nasal Cannula 4.0 09/27/18 00:00 128 24 122/42 96 Nasal Cannula 4.0 09/26/18 23:35 Nasal Cannula 3.0 09/26/18 23:30 118 24 99/59 96 Nasal Cannula 4.0 09/26/18 23:30 98.4 127 18 113/67 (82) 94 09/26/18 23:30 127 09/26/18 20:30 97.5 128 20 87/37 96 Nasal Cannula 4.0 09/26/18 20:00 98.4 130 19 102/67 98 Room Air 09/26/18 19:30 98.9 129 20 89/48 98 Room Air 09/26/18 19:15 130 20 Room Air 09/26/18 18:30 133 18 107/45 100 Room Air 09/26/18 16:20 130 15 89/53 100 Room Air Intake and Output 09/26/18 09/27/18 19:00 07:00 Intake Total 1000 ml Output Total 500 ml Balance 1000 ml -500 ml Intake IV Total 1000 ml Output Urine Total 500 ml # Voids 1 3 # Bowel Movements 1 Laboratory Tests Test 09/26/18 14:50 09/26/18 17:15 09/26/18 18:30 09/26/18 20:36 Urine Color [place] Urine Appearance Cloudy Urine pH 8 (4.5-8.0) Urine Specific [place] 1.020 (1.005-1.035) Urine Protein 4+ (NEGATIVE) H Urine Glucose (UA) Negative (NEGATIVE) Urine Ketones 1+ (NEGATIVE) H Urine Blood 5+ (NEGATIVE) H Urine Nitrite Positive (NEGATIVE) H Urine Bilirubin Negative (NEGATIVE) Urine Urobilinogen 1 MG/DL (0.0-1.0) H Urine Leukocyte Esterase 3+ (NEGATIVE) H Urine RBC 60-80 /HPF (0 - 0) H Urine WBC 15-20 /HPF (0 - 0) H Urine Squamous Epithelial Cells Occasional /LPF Urine Triple Phosphate Crystals Moderate /LPF (NONE) H Urine Amorphous Sediment Moderate /LPF (NONE) H Urine Bacteria Many /HPF (NONE) H Lactic Acid Level 7.30 mmol/L (0.4-2.0) H 6.90 mmol/L (0.66-2.22) H 5.40 mmol/L (0.4-2.0) H Test 09/26/18 22:26 09/27/18 06:04 09/27/18 09:15 Lactic Acid Level 4.80 mmol/L (0.66-2.22) H 4.90 mmol/L (0.4-2.0) H 3.90 mmol/L (0.66-2.22) H White Blood Count 30.8 K/UL (4.8-10.8) #*H Red Blood Count 3.71 M/UL (4.70-6.10) L Hemoglobin 11.5 G/DL (14.2-18.0) L Hematocrit 35.9 % (42.0-52.0) L Mean Corpuscular Volume 97 FL (80-99) Mean Corpuscular Hemoglobin 31.0 PG (27.0-31.0) Mean Corpuscular Hemoglobin Concent 32.1 G/DL (32.0-36.0) Red Cell Distribution Width 16.4 % (11.6-14.8) H Platelet Count 80 K/UL (150-450) L Mean Platelet Volume 10.6 FL (6.5-10.1) H Neutrophils (%) (Auto) % (45.0-75.0) Lymphocytes (%) (Auto) % (20.0-45.0) Monocytes (%) (Auto) % (1.0-10.0) Eosinophils (%) (Auto) % (0.0-3.0) Basophils (%) (Auto) % (0.0-2.0) Differential Total Cells Counted 100 Neutrophils % (Manual) 75 % (45-75) Lymphocytes % (Manual) 6 % (20-45) L Monocytes % (Manual) 4 % (1-10) Eosinophils % (Manual) 0 % (0-3) Basophils % (Manual) 0 % (0-2) Metamyelocytes % 1 % (0-0) H Band Neutrophils 14 % (0-8) H Platelet Estimate Decreased L Platelet Morphology Normal Activated Partial Thromboplast Time 39 SEC (23-33) H Sodium Level 140 MMOL/L (136-145) Potassium Level 4.0 MMOL/L (3.5-5.1) Chloride Level 107 MMOL/L (98-107) Carbon Dioxide Level 15 MMOL/L (21-32) L Anion Gap 18 mmol/L (5-15) H Blood Urea Nitrogen 17 mg/dL (7-18) Creatinine 1.9 MG/DL (0.55-1.30) H Estimat Glomerular Filtration Rate 35.6 mL/min (>60) Glucose Level 81 MG/DL (74-106) Uric Acid 6.8 MG/DL (2.6-7.2) Calcium Level 7.0 MG/DL (8.5-10.1) #L Magnesium Level 0.6 MG/DL (1.8-2.4) *L Total Bilirubin 0.8 MG/DL (0.2-1.0) Aspartate Amino Transf (AST/SGOT) 58 U/L (15-37) H Alanine Aminotransferase (ALT/SGPT) 27 U/L (12-78) Alkaline Phosphatase 67 U/L (46-116) Total Creatine Kinase 533 U/L (26-308) H Total Protein 6.6 G/DL (6.4-8.2) Albumin 2.7 G/DL (3.4-5.0) L Globulin 3.9 g/dL Albumin/Globulin Ratio 0.7 (1.0-2.7) L Amylase Level 298 U/L (25-115) H Lipase 55 U/L (73-393) L Mumtaz Leon MD Sep 27, 2018 14:45
[2018-09-27 16:00] VITALS: BP 139/71
[2018-09-27 16:13] LABS: APPEARANCE,URINE SLIGHTLY CLOUDY; BILIRUBIN, URINE NEGATIVE (NEGATIVE); COLOR,URINE PALE YELLOW; GLUCOSE, URINE (UA) NEGATIVE (NEGATIVE); KETONES,URINE NEGATIVE (NEGATIVE); LEUKOCYTE ESTERASE ,URINE 3+ (NEGATIVE); NITRITE,URINE NEGATIVE (NEGATIVE); PH,URINE 6 (4.5-8.0); PROTEIN,URINE 2+ (NEGATIVE); UROBILINOGEN,URINE NORMAL MG/DL (0.0-1.0)
--- NOTE | 2018-09-27 19:26 | NUR ---
TRANSFER TO FLOOR: Patient transferred to [facility]. Report given to YING Olivera. Inventory check done. Endorsed plan of care.
--- NOTE | 2018-09-27 19:27 | NUR ---
NURSE NOTES: Received patient from [facility] transferred due to elevated heart rate and tachycardia. Report received from YING Osuna. Patient is resting in bed, non-rebreather is on at 15L and O2 saturating at 91%. Bed is on lowest position and alarm is activated. Will continue plan of care.
[2018-09-27] MEDS ORDERED: Isovue-300 100ml vial INJ PRN (19:39)
[2018-09-27] MEDS ORDERED: chlordiazePOXIDE 25mg Cap ORAL PRN (19:45)
[2018-09-27 20:00] VITALS: BP 124/70
[2018-09-27] MEDS ORDERED: Morphine Sulfate 2mg/ml Inj(IV/IM USE ONLY) IV PRN (20:00)
[2018-09-27] MEDS ORDERED: Mylanta II UD 30ml ORAL PRN (20:00)
--- NOTE | 2018-09-27 20:02 | Cardiology Report ---
APPROVED REPORT EXAM: Two-dimensional and M-mode echocardiogram with Doppler and color Doppler. INDICATION LV FUNCTION M-Mode DIMENSIONS IVSd1.0 (0.7-1.1cm)Left Atrium (MM)2.5 (1.6-4.0cm) LVDd3.6 (3.5-5.6cm)Aortic Root3.4 (2.0-3.7cm) PWd0.7 (0.7-1.1cm)Aortic Cusp Exc.1.6 (1.5-2.0cm) IVSs1.4 cm LVDs2.6 (2.5-4.0cm) PWs1.1 cm Other Information . Normal left ventricular chamber size, systolic function and wall motion to extend visualized . Left ventricular ejection fraction estimated to be 55-60% No evidence of left ventricular hypertrophy. No evidence of pericardial effusion . All other cardiac chamber sizes are within normal limits. Mild aortic valve sclerosis with adequate cusp excursion. Mildly thickened mitral valve leaflets with normal excursion. Mild mitral annulus and aortic root calcification. Pulmonic valve not well visualized. IVC dilated at 2.4cm without physiologic collapse suggestive of increased RA pressure. A color flow and spectral Doppler study was performed and revealed: Trace aortic insufficiency . Normal left ventricular diastolic function . Mild mitrall regurgitation. Trace tricuspid regurgitation. Tricuspid systolic velocities suggests peak right ventricular systolic pressure of 44mmHgh consistent with mild pulmonary hypertension .
--- NOTE | 2018-09-27 21:10 | NUR ---
NURSE NOTES: Received report form Tasneem RN, pt. in bed awake, Alert to name- no signs or symptoms of acute cardiac or respiratory distress noted, bed in lowest position and call light within easy reach, bed alarm on, side rails up x's3 and safety brakes engaged, pt,. is on non-re breather at 16L- sating at 96%- no distress noted, pt; is NPO, condom cath intact and draining to gravity, Left AC 18G and RT. forearm 20G- both ivs intact and patent, pt. has heart rate in 140's- will administer Cardizem IV- see eMAR, pt. is clean and dry, safety measures continued, will continue with plan of care.
[2018-09-27] MEDS ORDERED: LORazepam Inj 2mg/ml 1ml IV PRN (21:15)
--- NOTE | 2018-09-27 21:45 | NUR ---
NURSE NOTES: kandice Madrigal in Tele- pt. had 6 beats of V -tach- re-assessed patient- pt. appears to be stable- will continue to monitor pt. and with plan of care.
--- NOTE | 2018-09-27 23:54 | NUR ---
NURSE NOTES: pt. shows 6 beats of V-tach on monitor- will notify DR. Tam and continue to monitor pt.
[2018-09-28] VITALS (35 sets, daily range): BP systolic 81–157; BP diastolic 49–91
--- NOTE | 2018-09-28 00:40 | NUR ---
NURSE NOTES: patients heart rate trending up to 150's- Cardizem IV administered - will continue to monitor pt.
[2018-09-28] MEDS: dilTIAZem HCl 25mg/5ml Inj IV PRN (00:41)
--- NOTE | 2018-09-28 00:56 | NUR ---
NURSE NOTES: orders received from DR. Tam to transfer the patient to ICU and have patient on Cardizem drip at 7mg/hour- orders carried out.
--- NOTE | 2018-09-28 01:00 | NUR ---
NURSE NOTES: pt. transfer to ICU- pt. remains stable during transfer-will continue to monitor pt.
--- NOTE | 2018-09-28 01:01 | NUR ---
NURSE NOTES: Admitted 68 year old male patient from [facility]. Endorsement received from YING Wolf. Patient awake, follows simple commands. Confused. On BiPAP. Skin intact. With right AC g18 and right forearm g20. Condom catheter present. A Fib with RVR. Already with orders from Dr. Leon to start Cardizem 7mg/hr. Bed locked and in low position. Call light within reach.
--- NOTE | 2018-09-28 01:45 | NUR ---
NURSE NOTES: Abe desating at non [id number] 100%. Received new order from Dr Petty for BiPAP 06/11 100%.
[2018-09-28] MEDS ORDERED: dilTIAZem HCl 125mg/25ml Inj IVPB ONE (02:00)
[2018-09-28] MEDS ORDERED: clonazePAM 0.5mg tab ORAL PRN (02:00)
[2018-09-28] MEDS ORDERED: Mylanta II UD 30ml ORAL PRN (02:00)
[2018-09-28] MEDS ORDERED: Morphine Sulfate 2mg/ml Inj(IV/IM USE ONLY) IV PRN (02:00)
[2018-09-28] MEDS ORDERED: dilTIAZem HCl 25mg/5ml Inj IV PRN (02:00)
[2018-09-28] MEDS ORDERED: LORazepam Inj 2mg/ml 1ml IV PRN (03:45)
[2018-09-28] MEDS ORDERED: Ipratropium 0.02% Inh Soln 2.5ml UD HHN PRN (04:00)
--- NOTE | 2018-09-28 04:00 | NUR ---
NURSE NOTES: Patient extremely restless and agitated. Attempting to pull out mask. Unable to redirect. Bilateral soft wrist restraints applied. 12 L ECG done as per order. Shows Afib with RVR. Patient already on cardizem drip 7mg/hr as ordered.
--- NOTE | 2018-09-28 06:00 | NUR ---
NURSE NOTES: Patient asleep. Afib on the monitor, 125-120s. Continues on BiPAP
[2018-09-28 06:04] LABS: INR 1.1 (0.9-1.1)
[2018-09-28 06:06] LABS: HEMATOCRIT 35.9 % (42.0-52.0); MEAN CORPUSCULAR VOLUME 95 FL (80-99); PLATELET COUNT 78 K/UL (150-450); RED BLOOD COUNT 3.77 M/UL (4.70-6.10); RED CELL DISTRIBUTION WIDTH 16.2 % (11.6-14.8); WHITE BLOOD COUNT 17.2 K/UL (4.8-10.8)
[2018-09-28 06:10] LABS: PHOSPHORUS 3.2 MG/DL (2.5-4.9)
[2018-09-28 06:17] LABS: CREATINE KINASE 162 U/L (26-308)
[2018-09-28 06:18] LABS: ANION GAP 14 mmol/L (5-15); BLOOD UREA NITROGEN 25 mg/dL (7-18); CALCIUM 7.3 MG/DL (8.5-10.1); CARBON DIOXIDE 20 MMOL/L (21-32); CHLORIDE 109 MMOL/L (98-107); CREATININE 1.7 MG/DL (0.55-1.30); POTASSIUM 3.7 MMOL/L (3.5-5.1); SODIUM 143 MMOL/L (136-145)
--- NOTE | 2018-09-28 07:00 | NUR ---
Received Patient on BIPAP 12/ PS +7 FIO2 100% BUR 16. Patient on facial mask with tape in place, no skin breakdown noted. Bilateral breath sounds are diminished/ clear. Patient currently agitated. Alarms on and audible. BIPAP plugged into red outlet. Will continue to monitor throughout the day.
--- NOTE | 2018-09-28 07:22 | NUR ---
HAND-OFF: Report given to Daylin Yost RN.
--- NOTE | 2018-09-28 08:00 | NUR ---
NURSE NOTES: patient on bilateral soft wrist restraints. skin intact, pulses present.
[2018-09-28] MEDS ORDERED: Isovue-300 100ml vial INJ PRN (09:00)
[2018-09-28] MEDS ORDERED: Thiamine 100mg tab ORAL SCH ×2 (09:00)
[2018-09-28] MEDS ORDERED: cefTRIAXone 1 GM in D5W 55 ML IVPB SCH (09:00)
--- NOTE | 2018-09-28 09:06 | Cardiology Progress Note ---
Assessment/Plan Assessment/Plan tachy ? MAT vs AFIB hypotension alcohol with drawl syndrome ams etoh intoxication pneumonia thrombocytopenia i was called early this am pt required multiple bolus of Cardizem for tachy of variable degree recommended transfer to ice for dilt drip is on bipap abg pending echo normal lv systolic function ekg noted monitor mcl 1 lead on tele may be better showing of the atrial activity will dc ditl drip and switch to bb iv to see if any better control iv abx ivf bolus first torp neg repeat trop pending needs to be treated for pending DT / etoh withdraw signs reji need benezo and thiamine folate adn dextrose will leave to dr hilda garcia for dr stevens d/w rn ekg noted reviewed tele reviewed echo report reviewed order cxr cardioogly dritical care rendered min Subjective ROS Limited/Unobtainable: Yes Cardiovascular: Denies: chest pain, lightheadedness Objective Last 24 Hour Vital Signs Date Time Temp Pulse Resp B/P (MAP) Pulse Ox O2 Delivery O2 Flow Rate FiO2 09/28/18 07:17 156 51 98 Facial 100 09/28/18 07:00 109 36 157/71 (99) 98 09/28/18 06:30 111 36 99/65 (76) 98 09/28/18 06:00 115 36 97/63 (74) 98 09/28/18 05:30 117 40 85/57 (66) 98 09/28/18 05:20 136 42 98 Facial 100 09/28/18 05:00 123 40 112/61 (78) 98 09/28/18 04:30 130 36 111/90 (97) 98 09/28/18 04:00 163 09/28/18 04:00 Bi-pap 09/28/18 04:00 97.9 128 36 96/78 (84) 97 09/28/18 03:30 126 36 105/91 (96) 97 09/28/18 03:30 121 38 100 Facial 100 09/28/18 03:00 124 36 135/84 (101) 98 09/28/18 02:30 119 34 124/75 (91) 98 09/28/18 02:17 125 98/62 09/28/18 02:00 116 36 119/66 (83) 100 09/28/18 01:30 120 35 89/55 (66) 100 09/28/18 01:21 120 3/24/19 01:10 116 43 100 Facial 100 09/28/18 01:00 117 26 113/65 (81) 95 09/28/18 00:41 150 110/72 09/28/18 00:00 98.2 115 26 107/61 (76) 95 09/28/18 00:00 Non-Rebreather 15.0 09/28/18 00:00 114 09/27/18 21:54 113 34 91 Non-Rebreather 15.0 100 09/27/18 21:45 106 36 90 Non-Rebreather 15.0 100 09/27/18 21:36 153 134/88 09/27/18 20:00 Non-Rebreather 15.0 09/27/18 20:00 98.2 110 24 124/70 (88) 92 09/27/18 19:33 111 09/27/18 18:59 182 139/71 09/27/18 18:57 Non-Rebreather 15.0 100 09/27/18 18:56 92 Non-Rebreather 15.0 100 09/27/18 16:14 108 22 92 Non-Rebreather 15.0 100 09/27/18 16:00 131 09/27/18 16:00 98.5 119 24 139/71 (93) 95 09/27/18 15:42 136 120/75 09/27/18 12:00 140 09/27/18 12:00 97.3 120 20 120/75 (90) 90 09/27/18 11:28 156 132/80 09/27/18 09:00 Nasal Cannula 3.0 General Appearance: other Neck: supple Cardiovascular: tachycardia, irregularly irregular Respiratory/Chest: crackles/rales - ant left side Abdomen: normal bowel sounds, non tender, soft Extremities: no swelling Intake and Output 09/27/18 09/28/18 19:00 07:00 Intake Total 28 ml Output Total 750 ml Balance -722 ml Intake IV Total 28 ml Output Urine Total 750 ml # Voids 2 2 # Bowel Movements 2 Laboratory Tests Test 09/27/18 09:15 09/27/18 13:40 09/27/18 18:27 09/27/18 22:15 Lactic Acid Level 3.90 mmol/L (0.66-2.22) H Urine Color Pale yellow Urine Appearance Slightly cloudy Urine pH 6 (4.5-8.0) Urine Specific [place] 1.005 (1.005-1.035) Urine Protein 2+ (NEGATIVE) H Urine Glucose (UA) Negative (NEGATIVE) Urine Ketones Negative (NEGATIVE) Urine Blood 5+ (NEGATIVE) H Urine Nitrite Negative (NEGATIVE) Urine Bilirubin Negative (NEGATIVE) Urine Urobilinogen Normal MG/DL (0.0-1.0) Urine Leukocyte Esterase 3+ (NEGATIVE) H Urine RBC 10-15 /HPF (0 - 0) H Urine WBC 15-20 /HPF (0 - 0) H Urine Squamous Epithelial Cells None /LPF (NONE/OCC) Urine Bacteria Few /HPF (NONE) Urine Eosinophils None seen (NONE SEEN) Urine Random Creatinine Pending Urine Random Microalbumin Pending Urine Random Sodium 85 mmol/L (20-110) Urine Creatinine 44.5 MG/DL (30.0-125.0) Urine Microalbumin/Creatinine Ratio Pending Urine Potassium Timed 28 mmol/L (12-62) Arterial Blood pH 7.345 (7.350-7.450) Arterial Blood Partial Pressure CO2 34.1 mmHg (35.0-45.0) L Arterial Blood Partial Pressure O2 58.9 mmHg (75.0-100.0) L Arterial Blood HCO3 18.2 mmol/L (22.0-26.0) L Arterial Blood Oxygen Saturation 88.4 % (95-100) *L Arterial Blood Base Excess -6.6 (-2-2) L Blaine Test Positive Magnesium Level 2.0 MG/DL (1.8-2.4) Test 09/28/18 05:05 09/28/18 08:42 White Blood Count 17.2 K/UL (4.8-10.8) H Red Blood Count 3.77 M/UL (4.70-6.10) L Hemoglobin 12.0 G/DL (14.2-18.0) L Hematocrit 35.9 % (42.0-52.0) L Mean Corpuscular Volume 95 FL (80-99) Mean Corpuscular Hemoglobin 31.9 PG (27.0-31.0) H Mean Corpuscular Hemoglobin Concent 33.5 G/DL (32.0-36.0) Red Cell Distribution Width 16.2 % (11.6-14.8) H Platelet Count 78 K/UL (150-450) L Mean Platelet Volume 12.3 FL (6.5-10.1) H Neutrophils (%) (Auto) % (45.0-75.0) Lymphocytes (%) (Auto) % (20.0-45.0) Monocytes (%) (Auto) % (1.0-10.0) Eosinophils (%) (Auto) % (0.0-3.0) Basophils (%) (Auto) % (0.0-2.0) Differential Total Cells Counted 100 Neutrophils % (Manual) 81 % (45-75) H Lymphocytes % (Manual) 4 % (20-45) L Monocytes % (Manual) 2 % (1-10) Eosinophils % (Manual) 0 % (0-3) Basophils % (Manual) 0 % (0-2) Band Neutrophils 13 % (0-8) H Platelet Estimate Decreased L Platelet Morphology Normal Anisocytosis 1+ Prothrombin Time 11.4 SEC (9.30-11.50) Prothromb Time International Ratio 1.1 (0.9-1.1) Activated Partial Thromboplast Time 38 SEC (23-33) H Sodium Level 143 MMOL/L (136-145) Potassium Level 3.7 MMOL/L (3.5-5.1) Chloride Level 109 MMOL/L (98-107) H Carbon Dioxide Level 20 MMOL/L (21-32) L Anion Gap 14 mmol/L (5-15) Blood Urea Nitrogen 25 mg/dL (7-18) H Creatinine 1.7 MG/DL (0.55-1.30) H Estimat Glomerular Filtration Rate 40.5 mL/min (>60) Glucose Level 78 MG/DL (74-106) Lactic Acid Level 2.00 mmol/L (0.4-2.0) Calcium Level 7.3 MG/DL (8.5-10.1) L Phosphorus Level 3.2 MG/DL (2.5-4.9) Magnesium Level 2.0 MG/DL (1.8-2.4) Total Creatine Kinase 162 U/L (26-308) Troponin I 0.022 ng/mL (0.000-0.056) Pro-B-Type Natriuretic Peptide 6474 pg/mL (0-125) H Thyroid Stimulating Hormone (TSH) 1.607 uiU/mL (0.358-3.740) Arterial Blood pH 7.380 (7.350-7.450) Arterial Blood Partial Pressure CO2 30.1 mmHg (35.0-45.0) L Arterial Blood Partial Pressure O2 93.1 mmHg (75.0-100.0) Arterial Blood HCO3 17.4 mmol/L (22.0-26.0) *L Arterial Blood Oxygen Saturation 96.6 % (95-100) Arterial Blood Base Excess -6.5 (-2-2) L Blaine Test Positive Microbiology Date/Time Source Procedure Growth Status 09/26/18 17:30 Blood Blood Culture - Preliminary NO GROWTH AFTER 24 HOURS Resulted 09/26/18 17:15 Blood Blood Culture - Preliminary NO GROWTH AFTER 24 HOURS Resulted 09/27/18 13:40 Straight Cath Urine Culture - Preliminary NO GROWTH Resulted 09/26/18 16:43 Indwelling Cath Urine Culture - Preliminary Gram Negative Ty Resulted Mumtaz Leon MD Sep 28, 2018 09:06
[2018-09-28] MEDS ORDERED: Folic Acid 1 MG, Magnesium Sulfate 2,000 MG, Multivitamin - 12 Injection 10 ML in Sodiu... IV SCH (09:15)
[2018-09-28] MEDS: cefTRIAXone 1 GM in D5W 55 ML IVPB SCH (09:58)
--- NOTE | 2018-09-28 10:00 | NUR ---
NURSE NOTES: Dr. de at bedside to assess the patient, MD updated on pt's condition. cardizem gtt dc'd. new orders noted and carried out.
[2018-09-28] MEDS: Folic Acid 1 MG, Magnesium Sulfate 2,000 MG, Multivitamin - 12 Injection 10 ML in Sodiu... IV SCH (11:01)
[2018-09-28] MEDS: Metoprolol Tartrate 5 MG in D5W 55 ML IVPB PRN ×2 (11:02→21:23)
[2018-09-28] MEDS: Thiamine HCl 100 MG in D5W 110 ML IVPB SCH (11:04)
--- NOTE | 2018-09-28 12:00 | NUR ---
NURSE NOTES: Patient is turned and repositioned. oral care provided.
--- NOTE | 2018-09-28 12:41 | Pulmonolgy Critical Care Note ---
Critical Care - Objective Last 24 Hour Vital Signs Date Time Temp Pulse Resp B/P (MAP) Pulse Ox O2 Delivery O2 Flow Rate FiO2 09/28/18 12:00 99.1 101 40 102/81 (88) 98 09/28/18 12:00 Bi-pap 09/28/18 11:30 107 39 115/70 (85) 96 09/28/18 11:19 106 46 97 Facial 100 09/28/18 11:02 128 141/70 09/28/18 11:00 119 41 116/62 (80) 96 09/28/18 10:30 122 41 121/71 (88) 95 09/28/18 10:00 118 41 116/72 (87) 95 09/28/18 09:30 114 41 116/68 (84) 95 09/28/18 09:23 138 49 94 Facial 100 09/28/18 09:00 117 39 109/70 (83) 98 09/28/18 08:30 119 40 81/64 (70) 99 09/28/18 08:00 112 09/28/18 08:00 98.3 121 42 116/64 (81) 98 09/28/18 08:00 Bi-pap 09/28/18 07:30 122 40 123/70 (87) 98 09/28/18 07:17 156 51 98 Facial 100 09/28/18 07:00 109 36 157/71 (99) 98 09/28/18 06:30 111 36 99/65 (76) 98 09/28/18 06:00 115 36 97/63 (74) 98 09/28/18 05:30 117 40 85/57 (66) 98 09/28/18 05:20 136 42 98 Facial 100 09/28/18 05:00 123 40 112/61 (78) 98 09/28/18 04:30 130 36 111/90 (97) 98 09/28/18 04:00 163 09/28/18 04:00 Bi-pap 09/28/18 04:00 97.9 128 36 96/78 (84) 97 09/28/18 03:30 126 36 105/91 (96) 97 09/28/18 03:30 121 38 100 Facial 100 09/28/18 03:00 124 36 135/84 (101) 98 09/28/18 02:30 119 34 124/75 (91) 98 09/28/18 02:17 125 98/62 09/28/18 02:00 116 36 119/66 (83) 100 09/28/18 01:30 120 35 89/55 (66) 100 09/28/18 01:21 120 09/28/18 01:10 116 43 100 Facial 100 09/28/18 01:00 117 26 113/65 (81) 95 09/28/18 00:41 150 110/72 09/28/18 00:00 98.2 115 26 107/61 (76) 95 09/28/18 00:00 Non-Rebreather 15.0 09/28/18 00:00 114 09/27/18 21:54 113 34 91 Non-Rebreather 15.0 100 09/27/18 21:45 106 36 90 Non-Rebreather 15.0 100 09/27/18 21:36 153 134/88 09/27/18 20:00 Non-Rebreather 15.0 09/27/18 20:00 98.2 110 24 124/70 (88) 92 09/27/18 19:33 111 09/27/18 18:59 182 139/71 09/27/18 18:57 Non-Rebreather 15.0 100 09/27/18 18:56 92 Non-Rebreather 15.0 100 09/27/18 16:14 108 22 92 Non-Rebreather 15.0 100 09/27/18 16:00 131 09/27/18 16:00 98.5 119 24 139/71 (93) 95 09/27/18 15:42 136 120/75 Status: somnolent Condition: critical HEENT: atraumatic Neck: full ROM Heart: HR/BP stable Abdomen: soft, active bowel sounds Extremities: no C/C/E, edema Micro: Microbiology Date/Time Source Procedure Growth Status 09/26/18 17:30 Blood Blood Culture - Preliminary NO GROWTH AFTER 24 HOURS Resulted 09/26/18 17:15 Blood Blood Culture - Preliminary NO GROWTH AFTER 24 HOURS Resulted 09/27/18 13:40 Straight Cath Urine Culture - Preliminary NO GROWTH Resulted 09/26/18 16:43 Indwelling Cath Urine Culture - Preliminary Gram Negative Ty Resulted Respiratory: adjust tidal volume, monitor respiratory rate Cardiac: start pressors, continue pressors, continue to monitor HR/BP Renal: F/U I&O Infectious Disease: check cultures, continue antibiotics Gastrointestinal: hold feedings Endocrine: check TSH Hematologic: monitor H/H, transfuse if hgb<8.5 Neurologic: PRN Ativan, keep patient comfortable Affect: PRN ativan Prophylaxis: Heparin Notes Reviewed: seo associate, cardio 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, consultants, caseworker intakecorporate traffic manager - Subjective ROS Limited/Unobtainable: Yes Interval Events: transferred to ICU for rapid afib and DT Condition: critical FI02: 100 Sputum Amount: None I&O: Intake and Output 09/27/18 09/28/18 19:00 07:00 Intake Total 28 ml Output Total 750 ml Balance -722 ml Intake IV Total 28 ml Output Urine Total 750 ml # Voids 2 2 # Bowel Movements 2 Labs: Laboratory Tests Test 09/27/18 13:40 09/27/18 18:27 09/27/18 22:15 09/28/18 05:05 Urine Color Pale yellow Urine Appearance Slightly cloudy Urine pH 6 (4.5-8.0) Urine Specific [place] 1.005 (1.005-1.035) Urine Protein 2+ (NEGATIVE) H Urine Glucose (UA) Negative (NEGATIVE) Urine Ketones Negative (NEGATIVE) Urine Blood 5+ (NEGATIVE) H Urine Nitrite Negative (NEGATIVE) Urine Bilirubin Negative (NEGATIVE) Urine Urobilinogen Normal MG/DL (0.0-1.0) Urine Leukocyte Esterase 3+ (NEGATIVE) H Urine RBC 10-15 /HPF (0 - 0) H Urine WBC 15-20 /HPF (0 - 0) H Urine Squamous Epithelial Cells None /LPF (NONE/OCC) Urine Bacteria Few /HPF (NONE) Urine Eosinophils None seen (NONE SEEN) Urine Random Creatinine Pending Urine Random Microalbumin Pending Urine Random Sodium 85 mmol/L (20-110) Urine Creatinine 44.5 MG/DL (30.0-125.0) Urine Microalbumin/Creatinine Ratio Pending Urine Potassium Timed 28 mmol/L (12-62) Arterial Blood pH 7.345 (7.350-7.450) Arterial Blood Partial Pressure CO2 34.1 mmHg (35.0-45.0) L Arterial Blood Partial Pressure O2 58.9 mmHg (75.0-100.0) L Arterial Blood HCO3 18.2 mmol/L (22.0-26.0) L Arterial Blood Oxygen Saturation 88.4 % (95-100) *L Arterial Blood Base Excess -6.6 (-2-2) L Blaine Test Positive Magnesium Level 2.0 MG/DL (1.8-2.4) 2.0 MG/DL (1.8-2.4) White Blood Count 17.2 K/UL (4.8-10.8) H Red Blood Count 3.77 M/UL (4.70-6.10) L Hemoglobin 12.0 G/DL (14.2-18.0) L Hematocrit 35.9 % (42.0-52.0) L Mean Corpuscular Volume 95 FL (80-99) Mean Corpuscular Hemoglobin 31.9 PG (27.0-31.0) H Mean Corpuscular Hemoglobin Concent 33.5 G/DL (32.0-36.0) Red Cell Distribution Width 16.2 % (11.6-14.8) H Platelet Count 78 K/UL (150-450) L Mean Platelet Volume 12.3 FL (6.5-10.1) H Neutrophils (%) (Auto) % (45.0-75.0) Lymphocytes (%) (Auto) % (20.0-45.0) Monocytes (%) (Auto) % (1.0-10.0) Eosinophils (%) (Auto) % (0.0-3.0) Basophils (%) (Auto) % (0.0-2.0) Differential Total Cells Counted 100 Neutrophils % (Manual) 81 % (45-75) H Lymphocytes % (Manual) 4 % (20-45) L Monocytes % (Manual) 2 % (1-10) Eosinophils % (Manual) 0 % (0-3) Basophils % (Manual) 0 % (0-2) Band Neutrophils 13 % (0-8) H Platelet Estimate Decreased L Platelet Morphology Normal Anisocytosis 1+ Prothrombin Time 11.4 SEC (9.30-11.50) Prothromb Time International Ratio 1.1 (0.9-1.1) Activated Partial Thromboplast Time 38 SEC (23-33) H Sodium Level 143 MMOL/L (136-145) Potassium Level 3.7 MMOL/L (3.5-5.1) Chloride Level 109 MMOL/L (98-107) H Carbon Dioxide Level 20 MMOL/L (21-32) L Anion Gap 14 mmol/L (5-15) Blood Urea Nitrogen 25 mg/dL (7-18) H Creatinine 1.7 MG/DL (0.55-1.30) H Estimat Glomerular Filtration Rate 40.5 mL/min (>60) Glucose Level 78 MG/DL (74-106) Lactic Acid Level 2.00 mmol/L (0.4-2.0) Calcium Level 7.3 MG/DL (8.5-10.1) L Phosphorus Level 3.2 MG/DL (2.5-4.9) Total Creatine Kinase 162 U/L (26-308) Troponin I 0.022 ng/mL (0.000-0.056) Pro-B-Type Natriuretic Peptide 6474 pg/mL (0-125) H Thyroid Stimulating Hormone (TSH) 1.607 uiU/mL (0.358-3.740) Test 09/28/18 08:42 09/28/18 10:40 Arterial Blood pH 7.380 (7.350-7.450) Arterial Blood Partial Pressure CO2 30.1 mmHg (35.0-45.0) L Arterial Blood Partial Pressure O2 93.1 mmHg (75.0-100.0) Arterial Blood HCO3 17.4 mmol/L (22.0-26.0) *L Arterial Blood Oxygen Saturation 96.6 % (95-100) Arterial Blood Base Excess -6.5 (-2-2) L Blaine Test Positive Lactic Acid Level 1.70 mmol/L (0.66-2.22) Troponin I 0.006 ng/mL (0.000-0.056) Garret Petty MD Sep 28, 2018 12:41
--- NOTE | 2018-09-28 13:01 | NUR ---
CASE MANAGEMENT: REVIEW 09/28/2018 SI: CYSTITIS . DEHYDRATION . HEMATURIA . ALCOHOL WITHDRAWAL T 99.1 HR 101 RR 40 B/P 102/81 SATS 98% ON BIPAP FiO2 100% WBC 17.2 CL 109 CO2 20 BUN 25 CR 1.7 CA 7.3 BNP 6474 ABGs pCO2 30.1 HCO3 17.4 BE -6.5 IS: MAG SULFATE IV @100 ML/HR CEFTRIAXONE IV QD PEPCID IV QD THIAMINE PO QD MULTIVITAMINS IV @ 125 mL/HR ICU UNIT STATUS DCP: PATIENT IS FROM [facility]. DC LOCATION TBD PLAN OF CARE: VENOUS DUPLEX
[2018-09-28] MEDS: LORazepam Inj 2mg/ml 1ml IV PRN ×3 (13:11→21:13)
--- NOTE | 2018-09-28 13:30 | NUR ---
NURSE NOTES: Patient was restless, tried to remove bipap, on bilateral soft wrist restraints. ativan prn given.
--- NOTE | 2018-09-28 14:44 | NUR ---
NURSE NOTES: Received the patient from [facility]. Patient is awake, confused, resting in bed. On bipap, O2 sat 98%, RR in 40s. Afib with HR 110s-120s noted on the monitor. Left AC 18G and right forearm 20G intact and patent, running cardizem drip at 7mg/hr. Condom cath intact, draining melvin color urine. Patient kept NPO. Bed in lowest position, locked, side rails upx3. Call light within reach. Will continue to monitor. Addendum: 09/28/18 at 1453 by BEN MILLER RN incorrect time, correct time at 0730
--- NOTE | 2018-09-28 15:48 | Internal Med Progress Note ---
Subjective Date of Service: Sep 28, 2018 Physician Name Castellano,Sanford Attending Physician Benjamin Sterling MD Current Medications Medications (Trade) Dose Ordered Sig/Hoa Route PRN Reason Start Time Stop Time Status Last Admin Dose Admin Acetaminophen (Tylenol) 650 mg Q4H PRN ORAL fever (temp>100.5F) 09/28/18 03:45 10/26/18 19:44 Al Hydroxide/Mg Hydroxide (Mylanta II) 30 ml Q6H PRN ORAL dyspepsia 09/28/18 02:00 10/27/18 19:59 Ceftriaxone Sodium 1 gm/ Dextrose 55 ml @ 110 mls/hr DAILY IVPB 09/28/18 09:00 10/04/18 08:59 09/28/18 09:58 Chlordiazepoxide (Librium) 25 mg TIDPRN PRN ORAL Agitation 09/28/18 19:45 10/04/18 19:44 Clonazepam (KlonoPIN) 0.5 mg Q6H PRN ORAL For Anxiety 09/28/18 02:00 10/04/18 07:59 Dextrose (Dextrose 50%) 25 ml Q30M PRN IV Hypoglycemia 09/28/18 01:30 10/26/18 17:59 Dextrose (Dextrose 50%) 50 ml Q30M PRN IV Hypoglycemia 09/28/18 01:30 10/26/18 17:59 Dextrose/ Electrolytes 1,000 ml @ 100 mls/hr Q10H IV 09/28/18 20:00 10/28/18 19:59 Diphenhydramine HCl (Benadryl) 25 mg Q6H PRN ORAL Itching/Pruritis 09/28/18 01:45 10/27/18 19:44 Famotidine (Pepcid I.v.) 20 mg DAILY IVP 09/28/18 09:00 10/26/18 20:59 09/28/18 09:58 Folic Acid 1 mg/ Magnesium Sulfate 2000 mg/ Multivitamins 10 ml/Sodium Chloride 1,014.2 ml @ 125 mls/ hr Q24H IV 09/28/18 10:15 10/28/18 10:14 09/28/18 11:01 Iopamidol (Isovue-300 100ml) 100 ml NOW PRN INJ Radiology Procedure 09/28/18 09:00 09/29/18 00:00 Ipratropium Vowinckel (Atrovent) 500 mcg Q4H PRN HHN Shortness of Breath 09/28/18 04:00 10/02/18 19:59 Lorazepam (Ativan 2mg/ml 1ml) 1 mg Q1H PRN IV agitation, cofusion, dt 09/28/18 12:45 10/05/18 12:44 09/28/18 13:11 Metoprolol Tartrate 5 mg/ Dextrose 60 ml @ 130 mls/hr Q6HR PRN IVPB hr greater than 118 09/28/18 09:30 10/28/18 09:29 09/28/18 11:02 Midazolam HCl (Versed 2mg/2ml vial) 1 mg Q1H PRN IVP Agitation 09/28/18 13:00 10/28/18 12:59 Morphine Sulfate (Morphine Sulfate) 4 mg Q2H PRN IV For Pain (7-10) 09/28/18 02:00 10/03/18 17:59 Ondansetron HCl (Zofran) 4 mg Q6H PRN IVP Nausea & Vomiting 09/28/18 01:45 10/27/18 19:44 Quetiapine Fumarate (SEROquel) 50 mg Q12HR ORAL 09/28/18 21:00 10/27/18 08:59 Temazepam (Restoril) 15 mg HSPRN PRN ORAL Insomnia 09/28/18 19:45 10/04/18 19:44 Thiamine HCl 100 mg/Dextrose 111 ml @ 220 mls/hr Q24H IVPB 09/28/18 11:00 10/28/18 10:59 09/28/18 11:04 Allergies: Coded Allergies: No Known Allergies (Unverified , 09/06/15) ROS Limited/Unobtainable: Yes Subjective 68 YO M admitted with hematuria and hypotension. Now atrial fibrillation with rapid ventricular rate. Cover for Int Med-Dr Sterling. ICU. On full face BIPAP Objective Last Vital Signs Date Time Temp Pulse Resp B/P (MAP) Pulse Ox O2 Delivery O2 Flow Rate FiO2 09/28/18 15:03 114 49 93 Facial 100 09/28/18 15:00 115/58 (77) 09/28/18 12:00 99.1 09/28/18 00:00 15.0 Laboratory Tests Test 09/27/18 18:27 09/27/18 22:15 09/28/18 05:05 09/28/18 08:42 Arterial Blood pH 7.345 (7.350-7.450) 7.380 (7.350-7.450) Arterial Blood Partial Pressure CO2 34.1 mmHg (35.0-45.0) L 30.1 mmHg (35.0-45.0) L Arterial Blood Partial Pressure O2 58.9 mmHg (75.0-100.0) L 93.1 mmHg (75.0-100.0) Arterial Blood HCO3 18.2 mmol/L (22.0-26.0) L 17.4 mmol/L (22.0-26.0) *L Arterial Blood Oxygen Saturation 88.4 % (95-100) *L 96.6 % (95-100) Arterial Blood Base Excess -6.6 (-2-2) L -6.5 (-2-2) L Blaine Test Positive Positive Magnesium Level 2.0 MG/DL (1.8-2.4) 2.0 MG/DL (1.8-2.4) White Blood Count 17.2 K/UL (4.8-10.8) H Red Blood Count 3.77 M/UL (4.70-6.10) L Hemoglobin 12.0 G/DL (14.2-18.0) L Hematocrit 35.9 % (42.0-52.0) L Mean Corpuscular Volume 95 FL (80-99) Mean Corpuscular Hemoglobin 31.9 PG (27.0-31.0) H Mean Corpuscular Hemoglobin Concent 33.5 G/DL (32.0-36.0) Red Cell Distribution Width 16.2 % (11.6-14.8) H Platelet Count 78 K/UL (150-450) L Mean Platelet Volume 12.3 FL (6.5-10.1) H Neutrophils (%) (Auto) % (45.0-75.0) Lymphocytes (%) (Auto) % (20.0-45.0) Monocytes (%) (Auto) % (1.0-10.0) Eosinophils (%) (Auto) % (0.0-3.0) Basophils (%) (Auto) % (0.0-2.0) Differential Total Cells Counted 100 Neutrophils % (Manual) 81 % (45-75) H Lymphocytes % (Manual) 4 % (20-45) L Monocytes % (Manual) 2 % (1-10) Eosinophils % (Manual) 0 % (0-3) Basophils % (Manual) 0 % (0-2) Band Neutrophils 13 % (0-8) H Platelet Estimate Decreased L Platelet Morphology Normal Anisocytosis 1+ Prothrombin Time 11.4 SEC (9.30-11.50) Prothromb Time International Ratio 1.1 (0.9-1.1) Activated Partial Thromboplast Time 38 SEC (23-33) H Sodium Level 143 MMOL/L (136-145) Potassium Level 3.7 MMOL/L (3.5-5.1) Chloride Level 109 MMOL/L (98-107) H Carbon Dioxide Level 20 MMOL/L (21-32) L Anion Gap 14 mmol/L (5-15) Blood Urea Nitrogen 25 mg/dL (7-18) H Creatinine 1.7 MG/DL (0.55-1.30) H Estimat Glomerular Filtration Rate 40.5 mL/min (>60) Glucose Level 78 MG/DL (74-106) Lactic Acid Level 2.00 mmol/L (0.4-2.0) Calcium Level 7.3 MG/DL (8.5-10.1) L Phosphorus Level 3.2 MG/DL (2.5-4.9) Total Creatine Kinase 162 U/L (26-308) Troponin I 0.022 ng/mL (0.000-0.056) Pro-B-Type Natriuretic Peptide 6474 pg/mL (0-125) H Thyroid Stimulating Hormone (TSH) 1.607 uiU/mL (0.358-3.740) Test 09/28/18 10:40 Lactic Acid Level 1.70 mmol/L (0.66-2.22) Troponin I 0.006 ng/mL (0.000-0.056) Microbiology Date/Time Source Procedure Growth Status 09/26/18 17:30 Blood Blood Culture - Preliminary NO GROWTH AFTER 24 HOURS Resulted 09/26/18 17:15 Blood Blood Culture - Preliminary NO GROWTH AFTER 24 HOURS Resulted 09/27/18 13:40 Straight Cath Urine Culture - Preliminary NO GROWTH Resulted 09/26/18 16:43 Indwelling Cath Urine Culture - Preliminary Gram Negative Ty Resulted Intake and Output 09/27/18 09/28/18 19:00 07:00 Intake Total 35 ml Output Total 750 ml Balance -715 ml Intake IV Total 35 ml Output Urine Total 750 ml # Voids 2 2 # Bowel Movements 2 Objective General Appearance: WD/WN, no apparent distress, alert EENT: PERRL/EOMI, normal ENT inspection, TMs normal Neck: non-tender, normal alignment, supple, normal inspection Cardiovascular: Tachy; irreg/irreg; normal peripheral pulses, normal rate, no gallop/murmur, no JVD Respiratory/Chest: chest wall non-tender, lungs clear, normal breath sounds, no respiratory distress, no accessory muscle use Abdomen: normal bowel sounds, non tender, soft, no organomegaly, no mass Extremities: normal range of motion, non-tender Neurologic: hemmer chainstitch II-XII grossly normal, no motor/sensory deficts Assessment/Plan Assessment/Plan Assessment/Plan Assessment/Plan Problem List: (1) Severe sepsis ICD Codes: A41.9 - Sepsis, unspecified organism; R65.20 - Severe sepsis without septic shock SNOMED: 01574386 (2) Acute alcoholic intoxication ICD Codes: F10.129 - Alcohol abuse with intoxication, unspecified SNOMED: 44437732 (3) Nephrolithiasis ICD Codes: N20.0 - Calculus of kidney SNOMED: 17422314 (4) Hematuria ICD Codes: R31.9 - Hematuria, unspecified SNOMED: 95852338 5. Atrial fibrillation with rapid ventricular rate Assessment/Plan fernandez cultures iv abx banana bag Librium, Seroquel and Klonipin iv abx, ID evaluation Metoprolol drip per Cardiology ICU status Sanford Castellano MD Sep 28, 2018 15:48
--- NOTE | 2018-09-28 16:00 | NUR ---
NURSE NOTES: Patient resting in bed with eyes closed. No acute distress noted. Afib with HR in 100s-110s.
--- NOTE | 2018-09-28 17:20 | NUR ---
NURSE NOTES: Patient awake, restless. IV ativan given. Addendum: 09/28/18 at 1921 by BEN MILLER RN correct time: 1800
--- NOTE | 2018-09-28 19:19 | NUR ---
HAND-OFF: Report given to YING Overton.
--- NOTE | 2018-09-28 19:30 | NUR ---
HAND-OFF: Report given to YING Kate. Addendum: 09/28/18 at 1935 by BEN MILLER RN charted on wrong patient
[2018-09-28] MEDS ORDERED: chlordiazePOXIDE 25mg Cap ORAL PRN (19:45)
--- NOTE | 2018-09-28 19:45 | NUR ---
NURSE NOTES: PATIENT DROWSY, RESTRESS, STATUS, ON BIPAP FIO2 100%, I/E 12/5, RATE 14. O2 SATURATION 94% NOTED, ABDOMEN SOFT, NO BOWEL MOVEMENT STATUS, CONDOM CATH INTACT, DARK KRISTINE COLOR URINE DRAINED, PERIPHERAL LINE TO LEFT AC 18G AND RIGHT FOREARM 20G INTACT AND PATENT, ONGOING BANANA BAG DRIP STATUS, 2 POINT SOFT RESTRAINTS FOR SAFETY, HOB 30 DEGREE STATUS, MADE LOWER BED POSITION AND PROVIDED CALL LIGHT WITHIN REACH, WILL CONTINUE TO MONITOR. PT'S DAUGHTER STAYED AT BEDSIDE.
[2018-09-28] MEDS: Midazolam 2mg/2ml Inj IVP PRN (21:56)
--- NOTE | 2018-09-28 22:10 | NUR ---
NURSE NOTES: PATIENT RESTLESS, ON FIO2 100% BIPAP, RESPIRATION OVER 44/MIN NOTED AND DESATURATION NOTED THAT CALLED RT, WILL CONTINUE TO MONITOR.
--- NOTE | 2018-09-28 23:06 | NUR ---
NURSE NOTES:Reported to Dr Petty latest blood result.Awaiting for md to call back
--- NOTE | 2018-09-28 23:38 | NUR ---
NURSE NOTES: CALLED DR. WHEAT REGARDING DESATURATION THAT RECEIVED NEW BIPAP SETTING ORDER, CARRIED OUT. CALLED RT AND INFORMED.
--- NOTE | 2018-09-28 23:50 | NUR ---
NURSE NOTES: CALLED DR. WHEAT REGARDING O2 SATURATION BELOW 60% SUDDENLY THAT SAID "I WILL CALL ER DOCTOR FOR INTUBATION."
[2018-09-29] VITALS (53 sets, daily range): BP systolic 64–132; BP diastolic 41–84
--- NOTE | 2018-09-29 00:15 | NUR ---
NURSE NOTES: INTUBATED ENDOTUBE 7.5, LIP LINE 23CM BY ER DR. DUFFY, VENT SETTING AC 16/TV 500/FIO2 100%/PEEP 5, O2 SATURATION 66% NOTED AT THIS TIME.
--- NOTE | 2018-09-29 00:20 | NUR ---
RESPIRATORY NOTE: Pt began to desat between 50 to 60%, intubated shortly after that with ETT 7.5 and 23 cm at the lip. Vent settings are AC/VC 16, VT 500, PEEP 5, and FiO2 100%. Pt was breathing shallow and irregular. Very little secretions when suctioning. Vent is plugged into the red outlet. Ambu bag present in the room. Will continue to monitor closely.
--- NOTE | 2018-09-29 00:30 | NUR ---
NURSE NOTES: INSERTED TLC TO RIGHT FEMORAL BY ER DOCTOR.
--- NOTE | 2018-09-29 00:41 | NUR ---
NURSE NOTES: SBP BELOW 70MMHG, STARTED LEVOPHED DRIP 2MCG/MIN ORDERED VIA TLC, WILL CONTINUE TO MONITOR.
--- NOTE | 2018-09-29 01:00 | NUR ---
NURSE NOTES: INSERTED OGT 16 FR, VERIFIED BY 2 NURSES AND INSERTED 16FR DUMONT CATHETER ORDERED, KRISTINE COLOR URINE OUTED, WILL CONTINUE TO MONITOR.
--- NOTE | 2018-09-29 01:17 | NUR ---
NURSE NOTES: RECEIVED PHONE CALL BY YING ROMO THAT ER DR. DUFFY SAID "ETT IS OK."
--- NOTE | 2018-09-29 01:29 | Emergency Room Report ---
History of Present Illness General Chief Complaint: Male Urogenital Problems Source: Medical Record Present Illness HPI This is a 68-year-old male was admitted to the hospital for sepsis from UTI from kidney stone. He developed rapid A. fib and was transferred to the ICU. I was called to the ICU to evaluate the patient for respiratory distress. He was hypoxic and hypotensive. He was on BiPAP. I was asked to evaluate the patient for possible intubation. Unable to get any history from patient. History is from the nursing staff. On arrival, patient was in agonal respiration. He was being assisted in respirations with bag valve mask by respiratory therapist. I proceeded to intubate the patient. Because he was hypotensive, I place a central line also. Allergies: Coded Allergies: No Known Allergies (Unverified , 09/06/15) Nursing Documentation-[facility] Past Medical History Deferred: Pt Cognitively Impaired Past Medical History: No History, Except For Review of Systems Respiratory: Reports: shortness of breath All Other Systems: limited - Secondary to condition Physical Exam Vital Signs Date Time Temp Pulse Resp B/P (MAP) Pulse Ox O2 Delivery O2 Flow Rate FiO2 09/26/18 14:07 99.9 114 18 64/39 94 Room Air 09/26/18 20:30 4.0 09/27/18 16:14 100 Sp02 EP Interpretation: abnormal General Appearance: severe distress, Stupor Eyes: bilateral eye PERRL ENT: dry mucus membranes Neck: supple Respiratory: respiratory distress, decreased breath sounds, accessory muscle use, rales, other - Agonal respiration Cardiovascular #1: regular rate, rhythm Gastrointestinal: soft Musculoskeletal: swelling - 1+ edema Neurologic: other - Unresponsive Skin: normal color Procedures Critical Care Time Critical Care Time Critical care is mandated in this patient who presented with acute respiratory failure. Patient require my urgent intervention to attenuate the risks of and respiratory collapse which may lead to cardiovascular collapse and . Critical care time is 35 minutes excluding any reportable procedure. Critical care time included evaluation, multiple reevaluation, looking at old charts, interpreting laboratory and diagnostic data, discussing case with patient and family and consultants, and charting. Central Line Central Line : Consent: Emergent Central Line Lumen: triple Maximal Sterile Barrier Tech: yes cap, yes mask, yes sterile gown, yes sterile gloves, yes large sterile sheet, yes hand hygiene, yes chlorhexidine prep Central Line Postion: femoral (R) Complications: none Central Line Post Position: sutured, good blood return Attempts: One Patient Tolerated: Well Complications: None Intubation Intubation : Consent: Emergent Intubation Method: orotracheal Tube Size (cm): 7.5 Medications: Etomidate, Succinylcholine Breath Sounds after Intubation: equal Intubation Complications: no complications Post Intubation Xray: Yes Progress/Xray Impression: ETT in good poisition. no ptx Attempts: One Patient Tolerated: Well Complications: None Medical Decision Making Diagnostic Impression: Primary Impression: Acute respiratory failure with hypoxemia Additional Impressions: Cardiogenic shock Pulmonary edema Qualified Codes: J81.0 - Acute pulmonary edema ER Course Patient with acute respiratory failure requiring mechanical ventilation. Chest x-ray showed pulmonary edema. This is concerning for cardiogenic shock. Patient intubated and central line placed. I discussed the case with Dr. Petty who will managed patient. Chest X-Ray Diagnostic Results Chest X-Ray Diagnostic Results : Chest X-Ray Ordered: Yes # of Views/Limited/Complete: 1 View Indication: Shortness of Breath EP Interpretation: Yes Interpretation: no pneumothorax, other - ETT in good position. pulmonary edema Impression: Other - s/p intubation. pulmonary edema Electronically Signed by: Terry Agudelo MD Last Vital Signs Date Time Temp Pulse Resp B/P (MAP) Pulse Ox O2 Delivery O2 Flow Rate FiO2 09/29/18 00:41 60/42 09/28/18 23:11 108 34 93 Bi-pap 100 09/28/18 20:00 99.3 09/28/18 00:00 15.0 Status: improved Disposition: ADMITTED INPATIENT Condition: Critical Referrals: [facility],REFERRING (PCP) Terry Agudelo MD Sep 29, 2018 01:29
[2018-09-29 02:41] LABS: HEMATOCRIT 34.7 % (42.0-52.0); HEMOGLOBIN 11.6 G/DL (14.2-18.0); MEAN CORPUSCULAR VOLUME 97 FL (80-99); PLATELET COUNT 88 K/UL (150-450); RED BLOOD COUNT 3.59 M/UL (4.70-6.10); RED CELL DISTRIBUTION WIDTH 16.6 % (11.6-14.8)
[2018-09-29 03:23] LABS: PHOSPHORUS 5.4 MG/DL (2.5-4.9)
[2018-09-29 03:25] LABS: ALANINE AMINOTRANSFERASE 13 U/L (12-78); ALBUMIN 1.9 G/DL (3.4-5.0); ALBUMIN/GLOBULIN RATIO 0.5 (1.0-2.7); ALKALINE PHOSPHATASE 84 U/L (46-116); ANION GAP 13 mmol/L (5-15); ASPARTATE AMINO TRANSFERASE 37 U/L (15-37); BILIRUBIN,TOTAL 0.5 MG/DL (0.2-1.0); BLOOD UREA NITROGEN 30 mg/dL (7-18); CARBON DIOXIDE 21 MMOL/L (21-32); CHLORIDE 113 MMOL/L (98-107); CREATINE KINASE 69 U/L (26-308); CREATININE 1.8 MG/DL (0.55-1.30); POTASSIUM 3.8 MMOL/L (3.5-5.1); SODIUM 147 MMOL/L (136-145)
--- NOTE | 2018-09-29 05:00 | NUR ---
NURSE NOTES: MORNING CARE AND ORAL CARE WAS DONE, SMALL SOFT BLACK COLOR STOOL OUTED.
--- NOTE | 2018-09-29 06:30 | NUR ---
NURSE NOTES: ONGOING LEVOPHED DRIP 20MCG/MIN VIA TLC, WILL CONTINUE PLAN OF CARE.
--- NOTE | 2018-09-29 07:17 | NUR ---
HAND-OFF: Report given to YING BEAUCHAMP.
--- NOTE | 2018-09-29 07:18 | NUR ---
RESPIRATORY NOTE: Patient received mechanically ventilated on PB840 with current ordered vent settings. Patient is orally intubated with size 7.5 with 23 cm at the lip line and it is secured with an anchor fast. Breath sounds are decreased bilaterally. Small amount of thin and clear secretions were suctioned without incident. Vent alarms are functional and audible. There is an ambu bag available at the bedside and the vent is connected to a red outlet. Will continue to monitor.
--- NOTE | 2018-09-29 07:29 | NUR ---
NURSE NOTES: CALLED SON AND DAUGHTER REGARDING PT'S SITUATION THAT INFORMED TO DAUGHTER AT THIS TIME.
--- NOTE | 2018-09-29 08:00 | NUR ---
NURSE NOTES: Received patient a&o x1 opens eyes. consumer loan manager showing AFIB HR 120s. Doctor aware. Intubated 7.5 / 23 cm lipline AC 16 VT 500 FiO2 100% Peep of 5. Patient has an OGT - NPO per md order. Steen intact draining well. No skin issues. R fem TLC L ac 20 R hand 20 R forearm 20. D5NS at 100 cc/hr. Levophed at 20 mcg/hr BP stable at this time. VD was negative. Restraints intact - active range of motion present, no discoloration swelling noted related to restraints. Patient turned and repositioned. No new orders at this time. No distress noted. HOB elevated, bed on lowest position, bed alarm on for safety will continue to monitor patient.
--- NOTE | 2018-09-29 09:00 | NUR ---
NURSE NOTES: ABG reported to Dr. Petty order obtained to increase VT to 600. RT notified. BP stable systolic in 120s. Levophed decreased to 15 mcg/hr. Will continue plan of care.
[2018-09-29] MEDS: cefTRIAXone 1 GM in D5W 55 ML IVPB SCH (09:27)
--- NOTE | 2018-09-29 10:00 | NUR ---
NURSE NOTES: VSS. No distress noted. Turned and repositioned. Will continue plan of care.
--- NOTE | 2018-09-29 10:06 | Pulmonolgy Critical Care Note ---
Critical Care - Asmt/Plan Problems: (1) Acute respiratory failure with hypoxemia (2) ARDS (adult respiratory distress syndrome) (3) ATN (acute tubular necrosis) (4) Delirium tremens (5) Rapid atrial fibrillation Respiratory: monitor respiratory rate, adjust FIO2, CXR Cardiac: continue pressors, continue to monitor HR/BP Renal: F/U I&O, keep IV fluid Infectious Disease: check cultures, continue antibiotics Gastrointestinal: hold feedings Endocrine: monitor blood sugar Hematologic: monitor H/H Neurologic: PRN Ativan Prophylaxis: Protonix, Heparin Time Spent (Minutes): 40 Notes Reviewed: serger, cardio 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, consultants, medical case workerpilot manager - Objective Last 24 Hour Vital Signs Date Time Temp Pulse Resp B/P (MAP) Pulse Ox O2 Delivery O2 Flow Rate FiO2 09/29/18 09:00 118 28 115/68 (84) 94 09/29/18 08:54 126 31 100 09/29/18 08:30 115 27 128/62 (84) 91 09/29/18 08:00 129 09/29/18 08:00 100 09/29/18 08:00 99.2 118 25 125/60 (81) 91 09/29/18 08:00 Mechanical Ventilator 09/29/18 07:30 110 27 122/59 (80) 91 09/29/18 07:15 130 26 100 09/29/18 07:00 128 27 118/58 (78) 89 09/29/18 06:38 120/60 09/29/18 06:30 120/60 09/29/18 06:30 133 27 120/60 (80) 89 09/29/18 06:00 129 27 129/51 (77) 89 09/29/18 05:30 138 28 128/63 (84) 89 09/29/18 05:00 124/75 09/29/18 05:00 129 24 124/75 (91) 87 09/29/18 04:38 126 26 100 09/29/18 04:30 135 27 120/72 (88) 91 09/29/18 04:00 Mechanical Ventilator 09/29/18 04:00 99.7 136 27 128/74 (92) 88 09/29/18 04:00 128/74 09/29/18 04:00 129 09/29/18 03:34 109/60 09/29/18 03:30 128 26 109/60 (76) 87 09/29/18 03:04 128 25 100 09/29/18 03:00 128 25 118/68 (85) 84 09/29/18 03:00 118/68 09/29/18 02:30 124 22 110/54 (72) 85 09/29/18 02:20 90/42 09/29/18 02:15 124 26 107/63 (78) 82 09/29/18 02:00 124 26 108/64 (79) 79 09/29/18 02:00 108/64 09/29/18 01:50 88/52 09/29/18 01:45 124 31 98/53 (68) 77 09/29/18 01:30 128 25 90/42 (58) 75 09/29/18 01:30 90/42 09/29/18 01:15 128 25 88/67 (74) 75 09/29/18 01:10 86/62 09/29/18 01:00 122 25 106/55 (72) 75 09/29/18 00:50 70/44 09/29/18 00:45 122 27 72/48 (56) 72 09/29/18 00:41 60/42 09/29/18 00:30 115 27 68/48 (55) 70 09/29/18 00:20 115 25 100 09/29/18 00:15 100 09/29/18 00:15 100 09/29/18 00:15 95 22 70/44 (53) 61 09/29/18 00:00 Bi-pap 09/29/18 00:00 15.0 100 09/29/18 00:00 98 09/29/18 00:00 100 09/29/18 00:00 97.8 96 21 64/41 (49) 52 09/28/18 23:40 100 09/28/18 23:11 108 34 93 Bi-pap 100 09/28/18 23:00 109 36 102/55 (71) 95 09/28/18 23:00 110 30 94 Facial 100 09/28/18 22:00 104 44 95/49 (64) 89 09/28/18 21:23 144 125/77 09/28/18 21:20 107 44 93 Facial 100 09/28/18 21:00 122 48 125/77 (93) 94 09/28/18 20:00 118 09/28/18 20:00 99.3 118 41 120/67 (84) 96 09/28/18 20:00 100 09/28/18 20:00 Bi-pap 09/28/18 20:00 15.0 100 09/28/18 19:09 113 43 94 Facial 100 09/28/18 19:00 113 40 127/75 (92) 98 09/28/18 18:00 110 42 122/69 (86) 96 09/28/18 17:14 105 47 95 Facial 100 09/28/18 17:00 104 41 129/62 (84) 96 09/28/18 16:00 99.0 103 37 118/83 (95) 95 09/28/18 16:00 Bi-pap 09/28/18 16:00 108 09/28/18 15:03 114 49 93 Facial 100 09/28/18 15:00 105 40 115/58 (77) 98 09/28/18 14:00 111 36 119/59 (79) 95 09/28/18 13:20 109 43 95 Facial 100 09/28/18 13:00 109 33 136/76 (96) 96 09/28/18 12:00 102 09/28/18 12:00 99.1 101 40 102/81 (88) 98 09/28/18 12:00 Bi-pap 09/28/18 11:30 107 39 115/70 (85) 96 09/28/18 11:19 106 46 97 Facial 100 09/28/18 11:02 128 141/70 09/28/18 11:00 119 41 116/62 (80) 96 09/28/18 10:30 122 41 121/71 (88) 95 Status: sedated Condition: critical Neck: full ROM Lungs: clear Heart: HR/BP stable, regular Abdomen: non-tender, feeding tube Extremities: edema Decubiti: location Micro: Microbiology Date/Time Source Procedure Growth Status 09/26/18 17:30 Blood Blood Culture - Preliminary NO GROWTH AFTER 48 HOURS Resulted 09/26/18 17:15 Blood Blood Culture - Preliminary NO GROWTH AFTER 48 HOURS Resulted 09/27/18 13:40 Straight Cath Urine Culture - Preliminary NO GROWTH AFTER 24 HOURS Resulted 09/26/18 16:43 Indwelling Cath Urine Culture - Final Morganella Morg Spp Morganii Complete Critical Care - Subjective ROS Limited/Unobtainable: Yes Condition: critical FI02: 100 Vent Support Breath Rate: 16 Vent Support Mode: AC Vent Tidal Volume: 500 Sputum Amount: Small PEEP: 5.0 PIP: 16 I&O: Intake and Output 09/28/18 09/29/18 19:00 07:00 Intake Total 1743.5 ml 1754.7 ml Output Total 500 ml 980 ml Balance 1243.5 ml 774.7 ml Intake IV Total 1743.5 ml 1734.7 ml Other 20 ml Output Urine Total 500 ml 980 ml # Voids 2 # Bowel Movements 1 1 CXR: extensive infiltrate ET-Tube: 7.5 ET Position: 23 Labs: Laboratory Tests Test 09/28/18 10:40 09/28/18 17:20 09/28/18 22:23 09/29/18 02:20 Lactic Acid Level 1.70 mmol/L (0.66-2.22) Troponin I 0.006 ng/mL (0.000-0.056) 0.000 ng/mL (0.000-0.056) Arterial Blood pH 7.329 (7.350-7.450) Arterial Blood Partial Pressure CO2 34.7 mmHg (35.0-45.0) L Arterial Blood Partial Pressure O2 50.7 mmHg (75.0-100.0) L Arterial Blood HCO3 17.8 mmol/L (22.0-26.0) *L Arterial Blood Oxygen Saturation 83.6 % (95-100) *L Arterial Blood Base Excess -7.3 (-2-2) L Blaine Test Positive White Blood Count 22.0 K/UL (4.8-10.8) H Red Blood Count 3.59 M/UL (4.70-6.10) L Hemoglobin 11.6 G/DL (14.2-18.0) L Hematocrit 34.7 % (42.0-52.0) L Mean Corpuscular Volume 97 FL (80-99) Mean Corpuscular Hemoglobin 32.3 PG (27.0-31.0) H Mean Corpuscular Hemoglobin Concent 33.4 G/DL (32.0-36.0) Red Cell Distribution Width 16.6 % (11.6-14.8) H Platelet Count 88 K/UL (150-450) L Mean Platelet Volume 11.9 FL (6.5-10.1) H Neutrophils (%) (Auto) % (45.0-75.0) Lymphocytes (%) (Auto) % (20.0-45.0) Monocytes (%) (Auto) % (1.0-10.0) Eosinophils (%) (Auto) % (0.0-3.0) Basophils (%) (Auto) % (0.0-2.0) Neutrophils % (Manual) Pending Lymphocytes % (Manual) Pending Platelet Estimate Pending Platelet Morphology Pending Erythrocyte Sedimentation Rate 54 MM/HR (0-20) H Sodium Level 147 MMOL/L (136-145) H Potassium Level 3.8 MMOL/L (3.5-5.1) Chloride Level 113 MMOL/L (98-107) H Carbon Dioxide Level 21 MMOL/L (21-32) Anion Gap 13 mmol/L (5-15) Blood Urea Nitrogen 30 mg/dL (7-18) H Creatinine 1.8 MG/DL (0.55-1.30) H Estimat Glomerular Filtration Rate 37.9 mL/min (>60) Glucose Level 216 MG/DL (74-106) #H Calcium Level 7.0 MG/DL (8.5-10.1) L Phosphorus Level 5.4 MG/DL (2.5-4.9) H Magnesium Level 2.4 MG/DL (1.8-2.4) Total Bilirubin 0.5 MG/DL (0.2-1.0) Aspartate Amino Transf (AST/SGOT) 37 U/L (15-37) Alanine Aminotransferase (ALT/SGPT) 13 U/L (12-78) Alkaline Phosphatase 84 U/L (46-116) Total Creatine Kinase 69 U/L (26-308) C-Reactive Protein, Quantitative 37.7 mg/dL (0.00-0.90) H Pro-B-Type Natriuretic Peptide 6720 pg/mL (0-125) H Total Protein 5.7 G/DL (6.4-8.2) L Albumin 1.9 G/DL (3.4-5.0) L Globulin 3.8 g/dL Albumin/Globulin Ratio 0.5 (1.0-2.7) L Thyroid Stimulating Hormone (TSH) 1.380 uiU/mL (0.358-3.740) Test 09/29/18 03:00 09/29/18 08:34 Troponin I 0.002 ng/mL (0.000-0.056) Arterial Blood pH 7.240 (7.350-7.450) Arterial Blood Partial Pressure CO2 45.8 mmHg (35.0-45.0) H Arterial Blood Partial Pressure O2 57.6 mmHg (75.0-100.0) L Arterial Blood HCO3 19.2 mmol/L (22.0-26.0) L Arterial Blood Oxygen Saturation 87.9 % (95-100) *L Arterial Blood Base Excess -8.0 (-2-2) L Blaine Test Positive Garret Petty MD Sep 29, 2018 10:06
[2018-09-29] MEDS: Thiamine HCl 100 MG in D5W 110 ML IVPB SCH (11:21)
[2018-09-29] MEDS: Folic Acid 1 MG, Magnesium Sulfate 2,000 MG, Multivitamin - 12 Injection 10 ML in Sodiu... IV SCH (11:21)
--- NOTE | 2018-09-29 11:58 | NUR ---
NURSE NOTES: Patient turned and repositioned. No new orders at this time. SCDs applied bilaterally. Venous duplex negative. Will continue plan of care.
--- NOTE | 2018-09-29 11:59 | NUR ---
RD ASSESSMENT & RECOMMENDATIONS SEE CARE ACTIVITY FOR COMPLETE ASSESSMENT DAILY ESTIMATED NEEDS: Needs based on Critcal care 70kg 22-28 kcals/kg 1431-4105 total kcals 1.2-2 g protein/kg 84-140 g total protein 25-30 mL/kg 8525-1637 total fluid mLs NUTRITION DIAGNOSIS: 1) Swallowing difficulty r/t respiratory status as evidenced by s/p oral intubation, OGT in place, NPO at this time. 2) Altered nutrition related lab values r/t clinical status as evidenced by low pH , elev WBC (22), elev Na (147), elev BG (216), elev phos (5.4), elev BNP(6720), and elev serum alcohol on adm. ENTERAL NUTRITION RECOMMENDATIONS: Glucerna 1.2 @60ml/hr x24 hrs to provide 1440ml, 1728 kcal, 86g pro, 1159ml free H2O - As medically able, start Glucerna 1.2 @20ml/hr for 6 hrs. Advance as tolerated 10ml/hr q4-6 hrs to goal. - Flush per MD. HOB over 30 degrees --- If pt remains hemodynamically UNstable, rec trophic feeds only of Glucerna 1.2 @5-10ml/hr to maintain gut integrity. ADDITIONAL RECOMMENDATIONS: 1) Monitor for hemodynamic stability and ability to feeds 2) A1C for eval 3) Continue w/ thaimine, banana bag 4) Monitor phos, lytes and need for renal TF 5) Calibrated bed scale wts
--- NOTE | 2018-09-29 12:19 | Consultation ---
Consult Note Consult Note asked to eval for renal failure- Patient in ICU on Vent current conditions; 68-year-old male with hx of ETOh abuse presented to ED for evaluation of hematuria 1 day. Also noted to be hypotensive. Denies any blood thinners. Denies pain. Denies fevers or chills. His ETOH level was 142. examined data reviewed Assessment/Plan (1) Acute respiratory failure with hypoxemia- On Vent (2) ARDS (adult respiratory distress syndrome) (3) ATN (acute tubular necrosis) (4) Delirium tremens (5) Rapid atrial fibrillation Plan: Vent support- Keep BP under control Avoid nephrotoxics monitor renal parameters Albumin boluses Kaden Cordova MD Sep 29, 2018 12:19
[2018-09-29] MEDS ORDERED: D5 1/2NS w/KCl 20mEq 1,000 ML IV SCH (12:30)
--- NOTE | 2018-09-29 14:00 | NUR ---
NURSE NOTES: Patient turned and repositioned. No new changes in patient condition. HR remains unstable. Dr. Leon aware. Will continue plan of care.
[2018-09-29] MEDS: D5 1/2NS w/KCl 20mEq 1,000 ML IV SCH (14:21)
--- NOTE | 2018-09-29 14:26 | Consultation ---
History of Present Illness General Date patient seen: Sep 29, 2018 Chief Complaint: Male Urogenital Problems Present Illness HPI 68 y/o M with hx of EtOH abuse, nephrolithiasis presents to ED on 09/26 with 1 day of hematuria. UPon admission noted to be hypotensive, rapid Afib. Found to have alcohol intoxication. He had respiratory distress and placed on bipap but eventually was intubated and admitted to ICU. Denied f/c, upon admission. Allergies: Coded Allergies: No Known Allergies (Unverified , 09/06/15) Medication History Scheduled No Known Medications* (NKM - No Known Medications*), 0 ., (Reported) Patient History Healthcare decision maker Resuscitation status Full Code Advanced Directive on File Patient History Narrative Pmhx: as above Shx: reviewed Fhx non contributory Review of Systems All Other Systems: negative except mentioned in HPI Physical Exam Physical Exam Narrative General Appearance: WD/WN, confused Lines, tubes and drains: peripheral HEENT: normocephalic, atraumatic Neck: non-tender, supple Respiratory/Chest: chest wall non-tender, lungs clear Cardiovascular/Chest: normal peripheral pulses Abdomen: normal bowel sounds Last 24 Hour Vital Signs Date Time Temp Pulse Resp B/P (MAP) Pulse Ox O2 Delivery O2 Flow Rate FiO2 09/29/18 13:05 97 32 100 09/29/18 12:00 Mechanical Ventilator 09/29/18 12:00 100 09/29/18 12:00 110 09/29/18 12:00 99.0 115 25 110/68 (82) 93 09/29/18 11:37 100/63 09/29/18 11:30 122 25 106/75 (85) 93 09/29/18 11:00 122 25 116/65 (82) 93 09/29/18 10:46 125 29 100 09/29/18 10:30 111 25 108/62 (77) 94 09/29/18 10:00 115 25 112/66 (81) 94 09/29/18 09:30 110 28 118/66 (83) 92 09/29/18 09:00 118 28 115/68 (84) 94 09/29/18 08:54 126 31 100 09/29/18 08:30 115 27 128/62 (84) 91 09/29/18 08:00 129 09/29/18 08:00 100 09/29/18 08:00 99.2 118 25 125/60 (81) 91 09/29/18 08:00 Mechanical Ventilator 09/29/18 07:30 110 27 122/59 (80) 91 09/29/18 07:15 130 26 100 09/29/18 07:00 128 27 118/58 (78) 89 09/29/18 06:38 120/60 09/29/18 06:30 120/60 09/29/18 06:30 133 27 120/60 (80) 89 09/29/18 06:00 129 27 129/51 (77) 89 09/29/18 05:30 138 28 128/63 (84) 89 09/29/18 05:00 124/75 09/29/18 05:00 129 24 124/75 (91) 87 09/29/18 04:38 126 26 100 09/29/18 04:30 135 27 120/72 (88) 91 09/29/18 04:00 Mechanical Ventilator 09/29/18 04:00 99.7 136 27 128/74 (92) 88 09/29/18 04:00 128/74 09/29/18 04:00 129 09/29/18 03:34 109/60 09/29/18 03:30 128 26 109/60 (76) 87 09/29/18 03:04 128 25 100 09/29/18 03:00 128 25 118/68 (85) 84 09/29/18 03:00 118/68 09/29/18 02:30 124 22 110/54 (72) 85 09/29/18 02:20 90/42 09/29/18 02:15 124 26 107/63 (78) 82 09/29/18 02:00 124 26 108/64 (79) 79 09/29/18 02:00 108/64 09/29/18 01:50 88/52 09/29/18 01:45 124 31 98/53 (68) 77 09/29/18 01:30 128 25 90/42 (58) 75 09/29/18 01:30 90/42 09/29/18 01:15 128 25 88/67 (74) 75 09/29/18 01:10 86/62 09/29/18 01:00 122 25 106/55 (72) 75 3/25/19 00:50 70/44 09/29/18 00:45 122 27 72/48 (56) 72 09/29/18 00:41 60/42 09/29/18 00:30 115 27 68/48 (55) 70 09/29/18 00:20 115 25 100 09/29/18 00:15 100 09/29/18 00:15 100 09/29/18 00:15 95 22 70/44 (53) 61 09/29/18 00:00 Bi-pap 09/29/18 00:00 15.0 100 09/29/18 00:00 98 09/29/18 00:00 100 09/29/18 00:00 97.8 96 21 64/41 (49) 52 09/28/18 23:40 100 09/28/18 23:11 108 34 93 Bi-pap 100 09/28/18 23:00 109 36 102/55 (71) 95 09/28/18 23:00 110 30 94 Facial 100 09/28/18 22:00 104 44 95/49 (64) 89 09/28/18 21:23 144 125/77 09/28/18 21:20 107 44 93 Facial 100 09/28/18 21:00 122 48 125/77 (93) 94 09/28/18 20:00 118 09/28/18 20:00 99.3 118 41 120/67 (84) 96 09/28/18 20:00 100 09/28/18 20:00 Bi-pap 09/28/18 20:00 15.0 100 09/28/18 19:09 113 43 94 Facial 100 09/28/18 19:00 113 40 127/75 (92) 98 09/28/18 18:00 110 42 122/69 (86) 96 09/28/18 17:14 105 47 95 Facial 100 09/28/18 17:00 104 41 129/62 (84) 96 09/28/18 16:00 99.0 103 37 118/83 (95) 95 09/28/18 16:00 Bi-pap 09/28/18 16:00 108 09/28/18 15:03 114 49 93 Facial 100 09/28/18 15:00 105 40 115/58 (77) 98 Intake and Output 09/28/18 09/29/18 19:00 07:00 Intake Total 1743.5 ml 1754.7 ml Output Total 500 ml 980 ml Balance 1243.5 ml 774.7 ml Intake IV Total 1743.5 ml 1734.7 ml Other 20 ml Output Urine Total 500 ml 980 ml # Voids 2 # Bowel Movements 1 1 Laboratory Tests Test 09/28/18 17:20 09/28/18 22:23 09/29/18 02:20 09/29/18 03:00 Troponin I 0.000 ng/mL (0.000-0.056) 0.002 ng/mL (0.000-0.056) Arterial Blood pH 7.329 (7.350-7.450) Arterial Blood Partial Pressure CO2 34.7 mmHg (35.0-45.0) L Arterial Blood Partial Pressure O2 50.7 mmHg (75.0-100.0) L Arterial Blood HCO3 17.8 mmol/L (22.0-26.0) *L Arterial Blood Oxygen Saturation 83.6 % (95-100) *L Arterial Blood Base Excess -7.3 (-2-2) L Blaine Test Positive White Blood Count 22.0 K/UL (4.8-10.8) H Red Blood Count 3.59 M/UL (4.70-6.10) L Hemoglobin 11.6 G/DL (14.2-18.0) L Hematocrit 34.7 % (42.0-52.0) L Mean Corpuscular Volume 97 FL (80-99) Mean Corpuscular Hemoglobin 32.3 PG (27.0-31.0) H Mean Corpuscular Hemoglobin Concent 33.4 G/DL (32.0-36.0) Red Cell Distribution Width 16.6 % (11.6-14.8) H Platelet Count 88 K/UL (150-450) L Mean Platelet Volume 11.9 FL (6.5-10.1) H Neutrophils (%) (Auto) % (45.0-75.0) Lymphocytes (%) (Auto) % (20.0-45.0) Monocytes (%) (Auto) % (1.0-10.0) Eosinophils (%) (Auto) % (0.0-3.0) Basophils (%) (Auto) % (0.0-2.0) Differential Total Cells Counted 100 Neutrophils % (Manual) 80 % (45-75) H Lymphocytes % (Manual) 2 % (20-45) L Monocytes % (Manual) 4 % (1-10) Eosinophils % (Manual) 0 % (0-3) Basophils % (Manual) 0 % (0-2) Band Neutrophils 14 % (0-8) H Platelet Estimate Decreased L Platelet Morphology Normal Anisocytosis 1+ Erythrocyte Sedimentation Rate 54 MM/HR (0-20) H Sodium Level 147 MMOL/L (136-145) H Potassium Level 3.8 MMOL/L (3.5-5.1) Chloride Level 113 MMOL/L (98-107) H Carbon Dioxide Level 21 MMOL/L (21-32) Anion Gap 13 mmol/L (5-15) Blood Urea Nitrogen 30 mg/dL (7-18) H Creatinine 1.8 MG/DL (0.55-1.30) H Estimat Glomerular Filtration Rate 37.9 mL/min (>60) Glucose Level 216 MG/DL (74-106) #H Calcium Level 7.0 MG/DL (8.5-10.1) L Phosphorus Level 5.4 MG/DL (2.5-4.9) H Magnesium Level 2.4 MG/DL (1.8-2.4) Total Bilirubin 0.5 MG/DL (0.2-1.0) Aspartate Amino Transf (AST/SGOT) 37 U/L (15-37) Alanine Aminotransferase (ALT/SGPT) 13 U/L (12-78) Alkaline Phosphatase 84 U/L (46-116) Total Creatine Kinase 69 U/L (26-308) C-Reactive Protein, Quantitative 37.7 mg/dL (0.00-0.90) H Pro-B-Type Natriuretic Peptide 6720 pg/mL (0-125) H Total Protein 5.7 G/DL (6.4-8.2) L Albumin 1.9 G/DL (3.4-5.0) L Globulin 3.8 g/dL Albumin/Globulin Ratio 0.5 (1.0-2.7) L Thyroid Stimulating Hormone (TSH) 1.380 uiU/mL (0.358-3.740) Test 09/29/18 08:34 09/29/18 14:00 Arterial Blood pH 7.240 (7.350-7.450) Arterial Blood Partial Pressure CO2 45.8 mmHg (35.0-45.0) H Arterial Blood Partial Pressure O2 57.6 mmHg (75.0-100.0) L Arterial Blood HCO3 19.2 mmol/L (22.0-26.0) L Arterial Blood Oxygen Saturation 87.9 % (95-100) *L Arterial Blood Base Excess -8.0 (-2-2) L Blaine Test Positive C-Reactive Protein, Quantitative Pending Height (Feet): 5 Height (Inches): 6.00 Weight (Pounds): 154 Medications Current Medications Medications (Trade) Dose Ordered Sig/Hoa Route PRN Reason Start Time Stop Time Status Last Admin Dose Admin Acetaminophen (Tylenol) 650 mg Q4H PRN ORAL fever (temp>100.5F) 09/28/18 03:45 10/26/18 19:44 Ceftriaxone Sodium 1 gm/ Dextrose 55 ml @ 110 mls/hr DAILY IVPB 09/28/18 09:00 10/04/18 08:59 09/29/18 09:27 Chlordiazepoxide (Librium) 25 mg TIDPRN PRN ORAL Agitation 09/28/18 19:45 10/04/18 19:44 Chlorhexidine Gluconate (Zainab-Hex 2%) 1 applic DAILY@2000 TOPIC 09/29/18 20:00 10/29/18 19:59 Clonazepam (KlonoPIN) 0.5 mg Q6H PRN ORAL For Anxiety 09/28/18 02:00 10/04/18 07:59 Dextrose (Dextrose 50%) 25 ml Q30M PRN IV Hypoglycemia 09/28/18 01:30 10/26/18 17:59 Dextrose (Dextrose 50%) 50 ml Q30M PRN IV Hypoglycemia 09/28/18 01:30 10/26/18 17:59 Dextrose/ Electrolytes 1,000 ml @ 75 mls/hr [id number] IV 09/29/18 14:00 10/29/18 13:59 Diphenhydramine HCl (Benadryl) 25 mg Q6H PRN ORAL Itching/Pruritis 09/28/18 01:45 10/27/18 19:44 Ipratropium [place] (Atrovent) 500 mcg Q4H PRN HHN Shortness of Breath 09/28/18 04:00 10/02/18 19:59 09/28/18 23:11 Lorazepam (Ativan 2mg/ml 1ml) 1 mg Q1H PRN IV agitation, cofusion, dt 09/28/18 12:45 10/05/18 12:44 09/28/18 21:13 Metoprolol Tartrate 5 mg/ Dextrose 60 ml @ 130 mls/hr Q6HR PRN IVPB hr greater than 118 09/28/18 09:30 10/28/18 09:29 09/28/18 21:23 Midazolam HCl (Versed 2mg/2ml vial) 1 mg Q1H PRN IVP Agitation 09/28/18 13:00 10/28/18 12:59 09/28/18 21:56 Morphine Sulfate (Morphine Sulfate) 4 mg Q2H PRN IV For Pain (7-10) 09/28/18 02:00 10/03/18 17:59 09/28/18 22:49 Norepinephrine Bitartrate 4 mg/ Dextrose 250 ml @ 0 mls/hr Q24H IV 09/29/18 00:30 10/29/18 00:29 09/29/18 11:37 Ondansetron HCl (Zofran) 4 mg Q6H PRN IVP Nausea & Vomiting 09/28/18 01:45 10/27/18 19:44 Pantoprazole (Protonix) 40 mg EVERY 12 HOURS IVP 09/29/18 21:00 10/29/18 20:59 Quetiapine Fumarate (SEROquel) 50 mg Q12HR ORAL 09/28/18 21:00 10/27/18 08:59 09/29/18 09:27 Temazepam (Restoril) 15 mg HSPRN PRN ORAL Insomnia 09/28/18 19:45 10/04/18 19:44 Thiamine HCl 100 mg/Dextrose 111 ml @ 220 mls/hr Q24H IVPB 09/28/18 11:00 10/28/18 10:59 09/29/18 11:21 Assessment/Plan Assessment/Plan Abx: Ceftriaxone 09/26; 09/27- Zosyn x1 09/26 Assessment: Sepsis -Bcx NTD Probable UTI -u/a wbc 15-20, nit neg, leuk +3; ucx Morganella morganni (R ancef, amp; otherwise S) Afebrile Leukocytosis, irmpoving Etoh intoxication Acute respiratory failure/ ARDS s/p intubation -CXR p Thrombocytopenia- probably in the setting of sepsis and bone marrow suppression 2ry to EtOH Afib w/ RVR KARLA, improving EtOH abuse, nephrolithiasis Plan: -Switch Ceftriaxone #4 to Cefepime to cover for probable Amp-C Morganella -f.u cx -Monitor CBC/CMP, temperatures -f/u CXR =aspiration precautions -ETT/ICU care Thank you for this consultation. Will continue to follow along with you. Jes Taylor M.D. Sep 29, 2018 14:26
--- NOTE | 2018-09-29 15:18 | NUR ---
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 DEHYDRATION . HEMATURIA . ALCOHOL WITHDRAWAL VS: BP 108/74, P 125, T 99.0, RR 29, SpO2 93 on VENT FiO2 100 WBC 22.0, RBC 3.59, Hgb 11.6, Hct 34.7, Na 147, BUN 30, CR 1.8 ABG: pH 7.240, O2 SAT 87.9 IS:FAMOTIDINE 20mg IVP CEFTRIAXONE 55ml IVPB THIAMINE HCI 111ml IVPB D5/ ELECTROLYTES x1L IV SEROQUEL 50mg NOREPINEPHRINE BITARTRATE/D5 250ml IV LASIX 20mG IV ALBUMIN HUMAN 500mL IV ICU STATUS
--- NOTE | 2018-09-29 15:39 | NUR ---
*-* INSURANCE *-* NO INSURANCE INFORMATION IN THE BAR SEND CLINICALS OR REVIEWS. FAXED TO THE [facility] FAX NUMBER [facility] [phone] Work Work Fax
--- NOTE | 2018-09-29 16:00 | NUR ---
NURSE NOTES: Patient turned and repositioned. No new orders at this time. Will continue plan of care.
[2018-09-29] MEDS ORDERED: Succinylcholine 20mg/ml 10ml vial ONE (16:28)
[2018-09-29] MEDS ORDERED: Etomidate 40mg/20ml Inj IV ONE (16:28)
[2018-09-29] MEDS ORDERED: Digoxin 0.5mg/2ml Inj IVP SCH (17:42)
[2018-09-29] MEDS: Cefepime HCl 1 GM in D5W 55 ML IVPB SCH (17:49)
--- NOTE | 2018-09-29 18:00 | NUR ---
NURSE NOTES: Patient turned and repositioned. Order obtained for digoxin. Will continue plan of care. Agitated - versed administered.
[2018-09-29] MEDS: Midazolam 2mg/2ml Inj IVP PRN ×2 (18:02→23:11)
--- NOTE | 2018-09-29 18:13 | Internal Med Progress Note ---
Subjective Date of Service: Sep 29, 2018 Physician Name Sanford Castellano Attending Physician Benjamin Sterling MD Current Medications Medications (Trade) Dose Ordered Sig/Hoa Route PRN Reason Start Time Stop Time Status Last Admin Dose Admin Acetaminophen (Tylenol) 650 mg Q4H PRN ORAL fever (temp>100.5F) 09/28/18 03:45 10/26/18 19:44 Cefepime HCl 1 gm/ Dextrose 55 ml @ 110 mls/hr Q24H IVPB 09/29/18 17:00 10/06/18 16:59 09/29/18 17:49 Chlordiazepoxide (Librium) 25 mg TIDPRN PRN ORAL Agitation 09/28/18 19:45 10/04/18 19:44 Chlorhexidine Gluconate (Zainab-Hex 2%) 1 applic DAILY@2000 TOPIC 09/29/18 20:00 10/29/18 19:59 Clonazepam (KlonoPIN) 0.5 mg Q6H PRN ORAL For Anxiety 09/28/18 02:00 10/04/18 07:59 Dextrose (Dextrose 50%) 25 ml Q30M PRN IV Hypoglycemia 09/28/18 01:30 10/26/18 17:59 Dextrose (Dextrose 50%) 50 ml Q30M PRN IV Hypoglycemia 09/28/18 01:30 10/26/18 17:59 Dextrose/ Electrolytes 1,000 ml @ 75 mls/hr [id number] IV 09/29/18 14:00 10/29/18 13:59 09/29/18 14:21 Digoxin (Lanoxin) 0.25 mg ONCE IVP 09/29/18 17:42 09/29/18 19:00 09/29/18 17:50 Diphenhydramine HCl (Benadryl) 25 mg Q6H PRN ORAL Itching/Pruritis 09/28/18 01:45 10/27/18 19:44 Ipratropium [place] (Atrovent) 500 mcg Q4H PRN HHN Shortness of Breath 09/28/18 04:00 10/02/18 19:59 09/28/18 23:11 Lorazepam (Ativan 2mg/ml 1ml) 1 mg Q1H PRN IV agitation, cofusion, dt 09/28/18 12:45 10/05/18 12:44 09/28/18 21:13 Metoprolol Tartrate 5 mg/ Dextrose 60 ml @ 130 mls/hr Q6HR PRN IVPB hr greater than 118 09/28/18 09:30 10/28/18 09:29 09/28/18 21:23 Midazolam HCl (Versed 2mg/2ml vial) 1 mg Q1H PRN IVP Agitation 09/28/18 13:00 10/28/18 12:59 09/29/18 18:02 Morphine Sulfate (Morphine Sulfate) 4 mg Q2H PRN IV For Pain (7-10) 09/28/18 02:00 10/03/18 17:59 09/28/18 22:49 Norepinephrine Bitartrate 4 mg/ Dextrose 250 ml @ 0 mls/hr Q24H IV 09/29/18 00:30 10/29/18 00:29 09/29/18 11:37 Ondansetron HCl (Zofran) 4 mg Q6H PRN IVP Nausea & Vomiting 09/28/18 01:45 10/27/18 19:44 Pantoprazole (Protonix) 40 mg EVERY 12 HOURS IVP 09/29/18 21:00 10/29/18 20:59 Quetiapine Fumarate (SEROquel) 50 mg Q12HR ORAL 09/28/18 21:00 10/27/18 08:59 09/29/18 09:27 Temazepam (Restoril) 15 mg HSPRN PRN ORAL Insomnia 09/28/18 19:45 10/04/18 19:44 Thiamine HCl 100 mg/Dextrose 111 ml @ 220 mls/hr Q24H IVPB 09/28/18 11:00 10/28/18 10:59 09/29/18 11:21 Allergies: Coded Allergies: No Known Allergies (Unverified , 09/06/15) Subjective 68 YO M admitted with hematuria and hypotension. Now atrial fibrillation with rapid ventricular rate. Cover for Int Ash-Dr Sterling. ICU. Intubated and sedated Objective Last Vital Signs Date Time Temp Pulse Resp B/P (MAP) Pulse Ox O2 Delivery O2 Flow Rate FiO2 09/29/18 17:50 128 09/29/18 17:00 25 118/66 (83) 93 09/29/18 16:47 100 09/29/18 16:00 Mechanical Ventilator 09/29/18 16:00 99.1 09/29/18 00:00 15.0 Laboratory Tests Test 09/28/18 22:23 09/29/18 02:20 09/29/18 03:00 09/29/18 08:34 Arterial Blood pH 7.329 (7.350-7.450) 7.240 (7.350-7.450) Arterial Blood Partial Pressure CO2 34.7 mmHg (35.0-45.0) L 45.8 mmHg (35.0-45.0) H Arterial Blood Partial Pressure O2 50.7 mmHg (75.0-100.0) L 57.6 mmHg (75.0-100.0) L Arterial Blood HCO3 17.8 mmol/L (22.0-26.0) *L 19.2 mmol/L (22.0-26.0) L Arterial Blood Oxygen Saturation 83.6 % (95-100) *L 87.9 % (95-100) *L Arterial Blood Base Excess -7.3 (-2-2) L -8.0 (-2-2) L Blaine Test Positive Positive White Blood Count 22.0 K/UL (4.8-10.8) H Red Blood Count 3.59 M/UL (4.70-6.10) L Hemoglobin 11.6 G/DL (14.2-18.0) L Hematocrit 34.7 % (42.0-52.0) L Mean Corpuscular Volume 97 FL (80-99) Mean Corpuscular Hemoglobin 32.3 PG (27.0-31.0) H Mean Corpuscular Hemoglobin Concent 33.4 G/DL (32.0-36.0) Red Cell Distribution Width 16.6 % (11.6-14.8) H Platelet Count 88 K/UL (150-450) L Mean Platelet Volume 11.9 FL (6.5-10.1) H Neutrophils (%) (Auto) % (45.0-75.0) Lymphocytes (%) (Auto) % (20.0-45.0) Monocytes (%) (Auto) % (1.0-10.0) Eosinophils (%) (Auto) % (0.0-3.0) Basophils (%) (Auto) % (0.0-2.0) Differential Total Cells Counted 100 Neutrophils % (Manual) 80 % (45-75) H Lymphocytes % (Manual) 2 % (20-45) L Monocytes % (Manual) 4 % (1-10) Eosinophils % (Manual) 0 % (0-3) Basophils % (Manual) 0 % (0-2) Band Neutrophils 14 % (0-8) H Platelet Estimate Decreased L Platelet Morphology Normal Anisocytosis 1+ Erythrocyte Sedimentation Rate 54 MM/HR (0-20) H Sodium Level 147 MMOL/L (136-145) H Potassium Level 3.8 MMOL/L (3.5-5.1) Chloride Level 113 MMOL/L (98-107) H Carbon Dioxide Level 21 MMOL/L (21-32) Anion Gap 13 mmol/L (5-15) Blood Urea Nitrogen 30 mg/dL (7-18) H Creatinine 1.8 MG/DL (0.55-1.30) H Estimat Glomerular Filtration Rate 37.9 mL/min (>60) Glucose Level 216 MG/DL (74-106) #H Calcium Level 7.0 MG/DL (8.5-10.1) L Phosphorus Level 5.4 MG/DL (2.5-4.9) H Magnesium Level 2.4 MG/DL (1.8-2.4) Total Bilirubin 0.5 MG/DL (0.2-1.0) Aspartate Amino Transf (AST/SGOT) 37 U/L (15-37) Alanine Aminotransferase (ALT/SGPT) 13 U/L (12-78) Alkaline Phosphatase 84 U/L (46-116) Total Creatine Kinase 69 U/L (26-308) C-Reactive Protein, Quantitative 37.7 mg/dL (0.00-0.90) H Pro-B-Type Natriuretic Peptide 6720 pg/mL (0-125) H Total Protein 5.7 G/DL (6.4-8.2) L Albumin 1.9 G/DL (3.4-5.0) L Globulin 3.8 g/dL Albumin/Globulin Ratio 0.5 (1.0-2.7) L Thyroid Stimulating Hormone (TSH) 1.380 uiU/mL (0.358-3.740) Troponin I 0.002 ng/mL (0.000-0.056) Test 09/29/18 14:00 C-Reactive Protein, Quantitative Pending Microbiology Date/Time Source Procedure Growth Status 09/27/18 13:40 Straight Cath Urine Culture - Preliminary NO GROWTH AFTER 24 HOURS Resulted Intake and Output 09/28/18 09/29/18 19:00 07:00 Intake Total 1743.5 ml 1754.7 ml Output Total 500 ml 980 ml Balance 1243.5 ml 774.7 ml Intake IV Total 1743.5 ml 1734.7 ml Other 20 ml Output Urine Total 500 ml 980 ml # Voids 2 # Bowel Movements 1 1 Objective General Appearance: WD/WN, no apparent distress, alert EENT: PERRL/EOMI, normal ENT inspection, TMs normal Neck: non-tender, normal alignment, supple, normal inspection Cardiovascular: Tachy; irreg/irreg; normal peripheral pulses, normal rate, no gallop/murmur, no JVD Respiratory/Chest: Mech vent; chest wall non-tender, lungs clear, coarse upper breath sounds, no respiratory distress, no accessory muscle use Abdomen: normal bowel sounds, non tender, soft, no organomegaly, no mass Extremities: normal range of motion, non-tender Neurologic: adobe layer helper II-XII grossly normal, no motor/sensory deficts Assessment/Plan Assessment/Plan Assessment/Plan Assessment/Plan Problem List: (1) Severe sepsis ICD Codes: A41.9 - Sepsis, unspecified organism; R65.20 - Severe sepsis without septic shock SNOMED: 09683134 (2) Acute alcoholic intoxication ICD Codes: F10.129 - Alcohol abuse with intoxication, unspecified SNOMED: 11709619 (3) Nephrolithiasis ICD Codes: N20.0 - Calculus of kidney SNOMED: 46390635 (4) Hematuria ICD Codes: R31.9 - Hematuria, unspecified SNOMED: 82653493 5. Atrial fibrillation with rapid ventricular rate 6. Respiratory failure/ARDS Assessment/Plan fernandez cultures iv abx banana bag Librium, Seroquel and Klonipin iv abx, ID evaluation Metoprolol drip per Cardiology ICU status Cont mech vent per pulmonary Abx=Cefepime Sanford Castellano MD Sep 29, 2018 18:13
--- NOTE | 2018-09-29 19:08 | NUR ---
HAND-OFF: Report given to Armando Garvin rn using SBAR. VSS. No distress noted.
[2018-09-29] MEDS: Dyna-Hex 2% Top Sol 2oz TOPIC SCH (19:38)
[2018-09-29] MEDS: Metoprolol Tartrate 5 MG in D5W 55 ML IVPB PRN (19:39)
--- NOTE | 2018-09-29 19:50 | NUR ---
NURSE NOTES: PATIENT RESTRESS, LETHARGIC DID NOT FOLLOWED COMMANDS STATUS, ON ETT TO VENT AC16/TV600/FIO2 100%/PEEP 5, SATURATION 96% NOTED, OGT INTACT AND PATENT, KEPT NPO ORDERED, ABDOMEN SOFT, NO BOWEL MOVEMENT STATUS, F/C INTACT AND PATENT, DARK YELLOW URINE OUTED, TLC TO RIGHT FEMORAL, INTACT AND PATENT, PERIPHERAL LINE TO LEFT AC 18 G, RIGHT HAND AND RIGHT FOREARM 20G INTACT AND PATENT, ONGOING LEVOPHED 2.5MCG/MIN AND D5W 1/2NS W/ KCL 20MEQ AT 75ML/HR VIA TLC, 2 POINT SOFT RESTRAINTS FOR SAFETY, HOB 30 DEGREE STATUS, MADE LOWER BED POSITION AND PROVIDED CALL LIGHT WITHIN REACH, WILL CONTINUE TO MONITOR.
--- NOTE | 2018-09-29 20:00 | NUR ---
NURSE NOTES: SEEN THE PATIENT BY DR. FREEMAN, NO NEW ORDER STATUS.
--- NOTE | 2018-09-29 20:01 | Cardiology Progress Note ---
Assessment/Plan Assessment/Plan tachy ? MAT vs sinus hypotension septic shock ards alcohol with drawl syndrome ams etoh intoxication rrepiratory failure thrombocytopenia not seem to be in afib trial activity is visible on the strip and ekg has intermittent very rapid run of svt and some wide complex tachy intubated on bryant vent now on pressor titrae ivf cxr appearence of ards echo normal lv systolic function i reviewed to day ekg noted monitor mcl 1 lead on tele may be better showing of the atrial activity bb iv prn dig one time given iv abx ivf bolus torp neg treated for pending DT / etoh withdraw signs ekg noted reviewed personllshanell d/w rn chronic reviewed cardiology critical care rendered Subjective ROS Limited/Unobtainable: Yes Subjective intuabeted Objective Last 24 Hour Vital Signs Date Time Temp Pulse Resp B/P (MAP) Pulse Ox O2 Delivery O2 Flow Rate FiO2 09/29/18 19:39 164 132/60 09/29/18 19:22 121 32 100 09/29/18 19:00 115 25 122/65 (84) 93 09/29/18 18:30 108 25 124/67 (86) 93 09/29/18 18:00 103 25 115/65 (82) 93 09/29/18 17:50 128 09/29/18 17:30 104 25 122/68 (86) 93 09/29/18 17:00 117 25 118/66 (83) 93 09/29/18 16:47 176 32 100 09/29/18 16:30 98 25 105/68 (80) 93 09/29/18 16:00 118 09/29/18 16:00 Mechanical Ventilator 09/29/18 16:00 100 09/29/18 16:00 99.1 110 25 115/74 (88) 93 09/29/18 15:30 115 25 110/74 (86) 93 09/29/18 15:16 110 31 100 09/29/18 15:00 122 30 115/75 (88) 93 09/29/18 14:30 116 28 118/72 (87) 93 09/29/18 14:00 110 25 117/70 (86) 93 09/29/18 13:30 118 27 114/74 (87) 93 09/29/18 13:05 97 32 100 09/29/18 13:00 114 25 116/75 (89) 93 09/29/18 12:30 110 28 108/74 (85) 93 09/29/18 12:00 Mechanical Ventilator 09/29/18 12:00 100 09/29/18 12:00 110 09/29/18 12:00 99.0 115 25 110/68 (82) 93 09/29/18 11:37 100/63 09/29/18 11:30 122 25 106/75 (85) 93 09/29/18 11:00 122 25 116/65 (82) 93 09/29/18 10:46 125 29 100 09/29/18 10:30 111 25 108/62 (77) 94 09/29/18 10:00 115 25 112/66 (81) 94 09/29/18 09:30 110 28 118/66 (83) 92 09/29/18 09:00 118 28 115/68 (84) 94 09/29/18 08:54 126 31 100 09/29/18 08:30 115 27 128/62 (84) 91 09/29/18 08:00 129 09/29/18 08:00 100 09/29/18 08:00 99.2 118 25 125/60 (81) 91 09/29/18 08:00 Mechanical Ventilator 09/29/18 07:30 110 27 122/59 (80) 91 09/29/18 07:15 130 26 100 09/29/18 07:00 128 27 118/58 (78) 89 09/29/18 06:38 120/60 09/29/18 06:30 120/60 09/29/18 06:30 133 27 120/60 (80) 89 09/29/18 06:00 129 27 129/51 (77) 89 09/29/18 05:30 138 28 128/63 (84) 89 09/29/18 05:00 124/75 09/29/18 05:00 129 24 124/75 (91) 87 09/29/18 04:38 126 26 100 09/29/18 04:30 135 27 120/72 (88) 91 09/29/18 04:00 Mechanical Ventilator 09/29/18 04:00 99.7 136 27 128/74 (92) 88 09/29/18 04:00 128/74 09/29/18 04:00 129 09/29/18 03:34 109/60 09/29/18 03:30 128 26 109/60 (76) 87 09/29/18 03:04 128 25 100 09/29/18 03:00 128 25 118/68 (85) 84 09/29/18 03:00 118/68 09/29/18 02:30 124 22 110/54 (72) 85 09/29/18 02:20 90/42 09/29/18 02:15 124 26 107/63 (78) 82 09/29/18 02:00 124 26 108/64 (79) 79 09/29/18 02:00 108/64 09/29/18 01:50 88/52 09/29/18 01:45 124 31 98/53 (68) 77 09/29/18 01:30 128 25 90/42 (58) 75 09/29/18 01:30 90/42 09/29/18 01:15 128 25 88/67 (74) 75 09/29/18 01:10 86/62 09/29/18 01:00 122 25 106/55 (72) 75 09/29/18 00:50 70/44 09/29/18 00:45 122 27 72/48 (56) 72 09/29/18 00:41 60/42 09/29/18 00:30 115 27 68/48 (55) 70 09/29/18 00:20 115 25 100 09/29/18 00:15 100 09/29/18 00:15 100 09/29/18 00:15 95 22 70/44 (53) 61 09/29/18 00:00 Bi-pap 09/29/18 00:00 15.0 100 09/29/18 00:00 98 09/29/18 00:00 100 09/29/18 00:00 97.8 96 21 64/41 (49) 52 09/28/18 23:40 100 09/28/18 23:11 108 34 93 Bi-pap 100 09/28/18 23:00 109 36 102/55 (71) 95 09/28/18 23:00 110 30 94 Facial 100 09/28/18 22:00 104 44 95/49 (64) 89 09/28/18 21:23 144 125/77 09/28/18 21:20 107 44 93 Facial 100 09/28/18 21:00 122 48 125/77 (93) 94 09/28/18 20:00 118 09/28/18 20:00 99.3 118 41 120/67 (84) 96 09/28/18 20:00 100 09/28/18 20:00 Bi-pap 09/28/18 20:00 15.0 100 General Appearance: on vent, patient on isolation Neck: supple Cardiovascular: tachycardia, irregularly irregular Respiratory/Chest: crackles/rales Abdomen: normal bowel sounds, non tender, soft Extremities: no swelling Intake and Output 09/28/18 09/29/18 19:00 07:00 Intake Total 1743.5 ml 1754.7 ml Output Total 500 ml 980 ml Balance 1243.5 ml 774.7 ml Intake IV Total 1743.5 ml 1734.7 ml Other 20 ml Output Urine Total 500 ml 980 ml # Voids 2 # Bowel Movements 1 1 Laboratory Tests Test 09/28/18 22:23 09/29/18 02:20 09/29/18 03:00 09/29/18 08:34 Arterial Blood pH 7.329 (7.350-7.450) 7.240 (7.350-7.450) Arterial Blood Partial Pressure CO2 34.7 mmHg (35.0-45.0) L 45.8 mmHg (35.0-45.0) H Arterial Blood Partial Pressure O2 50.7 mmHg (75.0-100.0) L 57.6 mmHg (75.0-100.0) L Arterial Blood HCO3 17.8 mmol/L (22.0-26.0) *L 19.2 mmol/L (22.0-26.0) L Arterial Blood Oxygen Saturation 83.6 % (95-100) *L 87.9 % (95-100) *L Arterial Blood Base Excess -7.3 (-2-2) L -8.0 (-2-2) L Blaine Test Positive Positive White Blood Count 22.0 K/UL (4.8-10.8) H Red Blood Count 3.59 M/UL (4.70-6.10) L Hemoglobin 11.6 G/DL (14.2-18.0) L Hematocrit 34.7 % (42.0-52.0) L Mean Corpuscular Volume 97 FL (80-99) Mean Corpuscular Hemoglobin 32.3 PG (27.0-31.0) H Mean Corpuscular Hemoglobin Concent 33.4 G/DL (32.0-36.0) Red Cell Distribution Width 16.6 % (11.6-14.8) H Platelet Count 88 K/UL (150-450) L Mean Platelet Volume 11.9 FL (6.5-10.1) H Neutrophils (%) (Auto) % (45.0-75.0) Lymphocytes (%) (Auto) % (20.0-45.0) Monocytes (%) (Auto) % (1.0-10.0) Eosinophils (%) (Auto) % (0.0-3.0) Basophils (%) (Auto) % (0.0-2.0) Differential Total Cells Counted 100 Neutrophils % (Manual) 80 % (45-75) H Lymphocytes % (Manual) 2 % (20-45) L Monocytes % (Manual) 4 % (1-10) Eosinophils % (Manual) 0 % (0-3) Basophils % (Manual) 0 % (0-2) Band Neutrophils 14 % (0-8) H Platelet Estimate Decreased L Platelet Morphology Normal Anisocytosis 1+ Erythrocyte Sedimentation Rate 54 MM/HR (0-20) H Sodium Level 147 MMOL/L (136-145) H Potassium Level 3.8 MMOL/L (3.5-5.1) Chloride Level 113 MMOL/L (98-107) H Carbon Dioxide Level 21 MMOL/L (21-32) Anion Gap 13 mmol/L (5-15) Blood Urea Nitrogen 30 mg/dL (7-18) H Creatinine 1.8 MG/DL (0.55-1.30) H Estimat Glomerular Filtration Rate 37.9 mL/min (>60) Glucose Level 216 MG/DL (74-106) #H Calcium Level 7.0 MG/DL (8.5-10.1) L Phosphorus Level 5.4 MG/DL (2.5-4.9) H Magnesium Level 2.4 MG/DL (1.8-2.4) Total Bilirubin 0.5 MG/DL (0.2-1.0) Aspartate Amino Transf (AST/SGOT) 37 U/L (15-37) Alanine Aminotransferase (ALT/SGPT) 13 U/L (12-78) Alkaline Phosphatase 84 U/L (46-116) Total Creatine Kinase 69 U/L (26-308) C-Reactive Protein, Quantitative 37.7 mg/dL (0.00-0.90) H Pro-B-Type Natriuretic Peptide 6720 pg/mL (0-125) H Total Protein 5.7 G/DL (6.4-8.2) L Albumin 1.9 G/DL (3.4-5.0) L Globulin 3.8 g/dL Albumin/Globulin Ratio 0.5 (1.0-2.7) L Thyroid Stimulating Hormone (TSH) 1.380 uiU/mL (0.358-3.740) Troponin I 0.002 ng/mL (0.000-0.056) Test 09/29/18 14:00 C-Reactive Protein, Quantitative Pending Microbiology Date/Time Source Procedure Growth Status 09/27/18 13:40 Straight Cath Urine Culture - Preliminary NO GROWTH AFTER 24 HOURS Resulted Mumtaz Leon MD Sep 29, 2018 20:01
[2018-09-29] MEDS ORDERED: Pantoprazole Inj IVP SCH (21:00)
[2018-09-29] MEDS: Pantoprazole Inj IVP SCH (21:04)
[2018-09-29] MEDS: LORazepam Inj 2mg/ml 1ml IV PRN (21:38)
--- NOTE | 2018-09-29 21:38 | NUR ---
NURSE NOTES: PATIENT TRIED TO REMOVE LINE AND AGITATED THAT GIVEN ATIVAN 1MG BY IVP SLOWLY PRN ORDERED, WILL CONTINUE TO MONITOR.
--- NOTE | 2018-09-29 23:11 | NUR ---
NURSE NOTES: PATIENT TRIED TO BITE ENDOTUBE, RESTLESS AND AGITATED THAT GIVEN VERSED 1MG BY IVP SLOWLY PRN ORDERED THAT CALLED RT AND INFORMED, WILL CONTINUE TO MONITOR.
[2018-09-30] VITALS (30 sets, daily range): BP systolic 86–133; BP diastolic 47–79
--- NOTE | 2018-09-30 01:50 | NUR ---
NURSE NOTES: RELEASED RESTRAINTS AND REAPPLIED FOR SAFETY, PATIENT AWOKE, NO RESISTANCE TO CARE.
[2018-09-30] MEDS: LORazepam Inj 2mg/ml 1ml IV PRN ×2 (02:02→22:23)
[2018-09-30] MEDS: D5 1/2NS w/KCl 20mEq 1,000 ML IV SCH ×3 (02:02→21:02)
[2018-09-30] MEDS: Metoprolol Tartrate 5 MG in D5W 55 ML IVPB PRN ×2 (03:01→20:07)
--- NOTE | 2018-09-30 04:00 | NUR ---
NURSE NOTES: MORNING CARE AND ORAL CARE WAS DONE, DARK GREENISH SOFT STOOL OUTED.
--- NOTE | 2018-09-30 06:05 | NUR ---
NURSE NOTES: HOLD LEVOPHED DRIP AT THIS TIME DUE TO BP 129/68MMHG NOTED, WILL CONTINUE TO MONITOR.
--- NOTE | 2018-09-30 06:10 | NUR ---
NURSE NOTES: PATIENT OPEN EYES, DENIED PAIN AT THIS TIME, ORAL CARE AND SUCTIONED.
[2018-09-30 06:24] LABS: HEMOGLOBIN 10.7 G/DL (14.2-18.0); MEAN CORPUSCULAR VOLUME 97 FL (80-99); PLATELET COUNT 59 K/UL (150-450); RED BLOOD COUNT 3.41 M/UL (4.70-6.10); RED CELL DISTRIBUTION WIDTH 16.9 % (11.6-14.8)
[2018-09-30 06:59] LABS: ALANINE AMINOTRANSFERASE 14 U/L (12-78); ALBUMIN 1.9 G/DL (3.4-5.0); ALBUMIN/GLOBULIN RATIO 0.5 (1.0-2.7); ALKALINE PHOSPHATASE 98 U/L (46-116); ANION GAP 12 mmol/L (5-15); ASPARTATE AMINO TRANSFERASE 51 U/L (15-37); BLOOD UREA NITROGEN 22 mg/dL (7-18); CALCIUM 6.9 MG/DL (8.5-10.1); CARBON DIOXIDE 19 MMOL/L (21-32); CHLORIDE 114 MMOL/L (98-107); CREATININE 1.5 MG/DL (0.55-1.30); POTASSIUM 3.2 MMOL/L (3.5-5.1); SODIUM 145 MMOL/L (136-145)
[2018-09-30 07:06] LABS: CHOLESTEROL 81 MG/DL (< 200); HDL CHOLESTEROL 16 MG/DL (40-60); TRIGLYCERIDES 95 MG/DL (30-150)
--- NOTE | 2018-09-30 07:10 | NUR ---
HAND-OFF: Report given to YING BEAUCHAMP.
[2018-09-30 07:12] LABS: CREATINE KINASE 418 U/L (26-308); GAMMA GLUTAMYL TRANSPEPTIDASE 60 U/L (5-85)
--- NOTE | 2018-09-30 07:35 | NUR ---
NURSE NOTES: PATIENT RESTRESS, LETHARGIC DID NOT FOLLOWED COMMANDS STATUS, ON ETT TO VENT AC16/TV600/FIO2 100%/PEEP 5, SATURATION 95% NOTED, OGT INTACT AND PATENT, KEPT NPO ORDERED, ABDOMEN SOFT, NO BOWEL MOVEMENT STATUS, F/C INTACT AND PATENT, DARK YELLOW URINE OUTED, TLC TO RIGHT FEMORAL, INTACT AND PATENT, PERIPHERAL LINE TO LEFT AC 18 G, RIGHT HAND AND RIGHT FOREARM 20G INTACT AND PATENT, D5W 1/2NS W/ KCL 20MEQ AT 75ML/HR VIA TLC, 2 POINT SOFT RESTRAINTS FOR SAFETY, HOB 30 DEGREE STATUS, MADE LOWER BED POSITION AND PROVIDED CALL LIGHT WITHIN REACH, BED ALARM ON FOR SAFETY. WILL CONTINUE TO MONITOR PATIENT.
--- NOTE | 2018-09-30 07:39 | NUR ---
RESPIRATORY NOTE: received pt intubated with ETT 7.6 placed 23cm at the lip, secured via anchor fast. Pt on 100% fio with saturation of 93/94%, RR of 38. pt presents moderate amount of gibbs/yellow secretions when sxn. alarms were adjusted to meet pt's needs and is audible. vent is plugged into redoutlet. ambu bag at bedside. will cont to monitor pt.
--- NOTE | 2018-09-30 09:31 | NUR ---
RADIOLOGY DEPT., CHEST X-RAY DONE.-P.DYE
--- NOTE | 2018-09-30 09:41 | Pulmonolgy Critical Care Note ---
Critical Care - Asmt/Plan Problems: (1) Acute respiratory failure with hypoxemia (2) ARDS (adult respiratory distress syndrome) (3) ATN (acute tubular necrosis) (4) Delirium tremens (5) Rapid atrial fibrillation Respiratory: monitor respiratory rate, adjust FIO2, CXR Cardiac: continue pressors, stop pressors, continue to monitor HR/BP Renal: keep IV fluid, check electrolytes, other - phos, and K supplement Infectious Disease: check cultures, continue antibiotics Gastrointestinal: continue feedings/current rate Endocrine: monitor blood sugar, continue sliding scale insulin Hematologic: monitor H/H, transfuse if hgb<8.5 Neurologic: PRN Ativan, keep patient comfortable Affect: PRN ativan Prophylaxis: Heparin Time Spent (Minutes): 40 Notes Reviewed: resource technician, renal 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, consultants, medical case managerassistant clinical nurse manager - Objective Last 24 Hour Vital Signs Date Time Temp Pulse Resp B/P (MAP) Pulse Ox O2 Delivery O2 Flow Rate FiO2 09/30/18 09:09 119 31 80 09/30/18 09:00 120 25 108/58 (75) 94 09/30/18 08:00 Mechanical Ventilator 09/30/18 08:00 98.7 105 23 100/64 (76) 94 09/30/18 08:00 100 09/30/18 08:00 104 09/30/18 07:35 120 39 100 09/30/18 07:00 102 23 121/69 (86) 94 09/30/18 06:00 129/68 09/30/18 06:00 102 32 129/68 (88) 97 09/30/18 05:30 88 25 119/68 (85) 98 09/30/18 05:00 92 29 105/73 (84) 98 09/30/18 05:00 105/73 09/30/18 04:49 99 28 100 09/30/18 04:30 94 30 103/63 (76) 97 09/30/18 04:00 Mechanical Ventilator 09/30/18 04:00 100 09/30/18 04:00 97/64 09/30/18 04:00 82 09/30/18 04:00 98.3 82 28 97/64 (75) 95 09/30/18 03:30 88 29 87/47 (60) 96 09/30/18 03:05 102 33 100 09/30/18 03:01 111/67 09/30/18 03:01 156 111/67 09/30/18 03:00 104 32 113/63 (80) 96 09/30/18 03:00 113/63 09/30/18 02:30 103 32 116/71 (86) 95 09/30/18 02:00 111/63 09/30/18 02:00 100 32 111/63 (79) 95 09/30/18 01:30 101 30 105/63 (77) 95 09/30/18 01:26 95 31 100 09/30/18 01:00 97/70 09/30/18 01:00 101 31 97/70 (79) 95 09/30/18 00:30 100 28 97/64 (75) 95 09/30/18 00:00 99.3 102 30 102/59 (73) 94 09/30/18 00:00 102/59 09/30/18 00:00 98 09/30/18 00:00 Mechanical Ventilator 09/30/18 00:00 100 09/29/18 23:30 106 21 101/61 (74) 93 09/29/18 23:19 99 36 100 09/29/18 23:00 113 33 117/57 (77) 93 09/29/18 23:00 117/57 09/29/18 22:30 114 34 107/84 (92) 93 09/29/18 22:00 114 33 81/47 (58) 95 09/29/18 22:00 104/54 09/29/18 21:30 118 34 128/53 (78) 92 09/29/18 21:15 100.2 09/29/18 21:00 100.3 110 35 106/68 (81) 96 09/29/18 20:55 117 36 100 09/29/18 20:30 102 33 100/58 (72) 96 09/29/18 20:00 100.7 112 33 111/68 (82) 96 09/29/18 20:00 Mechanical Ventilator 09/29/18 20:00 111/68 09/29/18 20:00 100 09/29/18 20:00 118 09/29/18 19:39 164 132/60 09/29/18 19:30 122 32 132/60 (84) 98 09/29/18 19:22 121 32 100 09/29/18 19:00 115 25 122/65 (84) 93 09/29/18 18:30 108 25 124/67 (86) 93 09/29/18 18:00 103 25 115/65 (82) 93 09/29/18 17:50 128 09/29/18 17:30 104 25 122/68 (86) 93 09/29/18 17:00 117 25 118/66 (83) 93 09/29/18 16:47 176 32 100 09/29/18 16:30 98 25 105/68 (80) 93 09/29/18 16:00 118 09/29/18 16:00 Mechanical Ventilator 09/29/18 16:00 100 09/29/18 16:00 99.1 110 25 115/74 (88) 93 09/29/18 15:30 115 25 110/74 (86) 93 09/29/18 15:16 110 31 100 09/29/18 15:00 122 30 115/75 (88) 93 09/29/18 14:30 116 28 118/72 (87) 93 09/29/18 14:00 110 25 117/70 (86) 93 09/29/18 13:30 118 27 114/74 (87) 93 09/29/18 13:05 97 32 100 09/29/18 13:00 114 25 116/75 (89) 93 09/29/18 12:30 110 28 108/74 (85) 93 09/29/18 12:00 Mechanical Ventilator 09/29/18 12:00 100 09/29/18 12:00 110 09/29/18 12:00 99.0 115 25 110/68 (82) 93 09/29/18 11:37 100/63 09/29/18 11:30 122 25 106/75 (85) 93 09/29/18 11:00 122 25 116/65 (82) 93 09/29/18 10:46 125 29 100 09/29/18 10:30 111 25 108/62 (77) 94 09/29/18 10:00 115 25 112/66 (81) 94 Status: awake Condition: critical HEENT: atraumatic, normocephalic Lungs: rales, rhonchi Heart: HR/BP stable, regular Abdomen: soft, non-tender, feeding tube Extremities: edema Decubiti: location Micro: Microbiology Date/Time Source Procedure Growth Status 09/27/18 13:40 Straight Cath Urine Culture - Final NO GROWTH AFTER 48 HOURS Complete Critical Care - Subjective ROS Limited/Unobtainable: Yes Condition: critical EKG Rhythm: Sinus Rhythm FI02: 80 Vent Support Breath Rate: 16 Vent Support Mode: AC Vent Tidal Volume: 600 Sputum Amount: Moderate PEEP: 5.0 PIP: 28 I&O: Intake and Output 09/29/18 09/30/18 19:00 07:00 Intake Total 420.37 ml 1124.37 ml Output Total 695 ml 1010 ml Balance -274.63 ml 114.37 ml Intake IV Total 420.37 ml 1074.37 ml Other 50 ml Output Urine Total 695 ml 1010 ml # Bowel Movements 2 CXR: extensive infiltrate ET-Tube: 7.5 ET Position: 23 Labs: Laboratory Tests Test 09/30/18 05:25 09/30/18 08:40 White Blood Count 14.0 K/UL (4.8-10.8) H Red Blood Count 3.41 M/UL (4.70-6.10) L Hemoglobin 10.7 G/DL (14.2-18.0) L Hematocrit 33.0 % (42.0-52.0) L Mean Corpuscular Volume 97 FL (80-99) Mean Corpuscular Hemoglobin 31.5 PG (27.0-31.0) H Mean Corpuscular Hemoglobin Concent 32.5 G/DL (32.0-36.0) Red Cell Distribution Width 16.9 % (11.6-14.8) H Platelet Count 59 K/UL (150-450) L Mean Platelet Volume 11.8 FL (6.5-10.1) H Neutrophils (%) (Auto) % (45.0-75.0) Lymphocytes (%) (Auto) % (20.0-45.0) Monocytes (%) (Auto) % (1.0-10.0) Eosinophils (%) (Auto) % (0.0-3.0) Basophils (%) (Auto) % (0.0-2.0) Differential Total Cells Counted 100 Neutrophils % (Manual) 81 % (45-75) H Lymphocytes % (Manual) 6 % (20-45) L Monocytes % (Manual) 10 % (1-10) Eosinophils % (Manual) 3 % (0-3) Basophils % (Manual) 0 % (0-2) Band Neutrophils 0 % (0-8) Platelet Estimate Decreased L Platelet Morphology Normal Hypochromasia 1+ Anisocytosis 1+ Sodium Level 145 MMOL/L (136-145) Potassium Level 3.2 MMOL/L (3.5-5.1) L Chloride Level 114 MMOL/L (98-107) H Carbon Dioxide Level 19 MMOL/L (21-32) L Anion Gap 12 mmol/L (5-15) Blood Urea Nitrogen 22 mg/dL (7-18) H Creatinine 1.5 MG/DL (0.55-1.30) H Estimat Glomerular Filtration Rate 46.8 mL/min (>60) Glucose Level 102 MG/DL (74-106) # Hemoglobin A1c 5.1 % (4.3-6.0) Uric Acid 5.5 MG/DL (2.6-7.2) Calcium Level 6.9 MG/DL (8.5-10.1) L Phosphorus Level 2.0 MG/DL (2.5-4.9) L Magnesium Level 1.9 MG/DL (1.8-2.4) Total Bilirubin 1.0 MG/DL (0.2-1.0) Gamma Glutamyl Transpeptidase 60 U/L (5-85) Aspartate Amino Transf (AST/SGOT) 51 U/L (15-37) H Alanine Aminotransferase (ALT/SGPT) 14 U/L (12-78) Alkaline Phosphatase 98 U/L (46-116) Total Creatine Kinase 418 U/L (26-308) H Troponin I 0.000 ng/mL (0.000-0.056) C-Reactive Protein, Quantitative 30.1 mg/dL (0.00-0.90) H Pro-B-Type Natriuretic Peptide 6513 pg/mL (0-125) H Total Protein 5.5 G/DL (6.4-8.2) L Albumin 1.9 G/DL (3.4-5.0) L Globulin 3.6 g/dL Albumin/Globulin Ratio 0.5 (1.0-2.7) L Triglycerides Level 95 MG/DL (30-150) Cholesterol Level 81 MG/DL (< 200) LDL Cholesterol 42 mg/dL (<100) HDL Cholesterol 16 MG/DL (40-60) L Cholesterol/HDL Ratio 5.1 (3.3-4.4) H Vitamin B12 Level 1703 PG/ML (193-986) H Folate 18.3 NG/ML (8.6-58.9) Arterial Blood pH 7.335 (7.350-7.450) Arterial Blood Partial Pressure CO2 32.9 mmHg (35.0-45.0) L Arterial Blood Partial Pressure O2 119.5 mmHg (75.0-100.0) H Arterial Blood HCO3 17.2 mmol/L (22.0-26.0) *L Arterial Blood Oxygen Saturation 98.2 % (95-100) Arterial Blood Base Excess -7.7 (-2-2) L Blaine Test Positive Garret Petty MD Sep 30, 2018 09:41
[2018-09-30] MEDS ORDERED: Potassium Chloride 40 MEQ in Sodium Chloride 550 ML IVPB ONE (09:45)
--- NOTE | 2018-09-30 10:00 | NUR ---
NURSE NOTES: Patient turned and repositioned. No new orders at this time. Will continue to monitor patient. Changed to 80% FIo2 per RT. Tolerating well. Will continue plan of care.
[2018-09-30] MEDS: Pantoprazole Inj IVP SCH ×2 (10:08→21:00)
[2018-09-30] MEDS ORDERED: Potassium Phosphate 30 MM in NS 275 ML IV ONE (11:00)
[2018-09-30] MEDS: Thiamine HCl 100 MG in D5W 110 ML IVPB SCH (11:27)
--- NOTE | 2018-09-30 12:00 | NUR ---
NURSE NOTES: VSS. No changes in patient condition. Alert and oriented x1. WIll continue to monitor patient.
--- NOTE | 2018-09-30 12:36 | Nephrology Progress Note ---
Assessment/Plan Problem List: (1) ATN (acute tubular necrosis) (2) ARDS (adult respiratory distress syndrome) (3) Acute respiratory failure with hypoxemia Assessment (1) Acute respiratory failure with hypoxemia- On Vent (2) ARDS (adult respiratory distress syndrome) (3) ATN (acute tubular necrosis) (4) Delirium tremens (5) Rapid atrial fibrillation Plan Vent support- Keep BP under control Avoid nephrotoxics monitor renal parameters Albumin boluses k and phos and Mag as needed Subjective ROS Limited/Unobtainable: Yes Objective Objective Last 24 Hour Vital Signs Date Time Temp Pulse Resp B/P (MAP) Pulse Ox O2 Delivery O2 Flow Rate FiO2 09/30/18 12:00 80 09/30/18 12:00 Mechanical Ventilator 09/30/18 12:00 98.9 110 25 98/58 (71) 94 09/30/18 12:00 108 09/30/18 11:00 105 25 105/55 (72) 95 09/30/18 10:53 127 31 75 09/30/18 10:00 108 25 110/60 (77) 94 09/30/18 09:15 80 09/30/18 09:09 119 31 80 09/30/18 09:00 120 25 108/58 (75) 94 09/30/18 08:00 Mechanical Ventilator 09/30/18 08:00 98.7 105 23 100/64 (76) 94 09/30/18 08:00 100 09/30/18 08:00 104 09/30/18 07:35 120 39 100 09/30/18 07:00 102 23 121/69 (86) 94 09/30/18 06:00 129/68 09/30/18 06:00 102 32 129/68 (88) 97 09/30/18 05:30 88 25 119/68 (85) 98 09/30/18 05:00 92 29 105/73 (84) 98 09/30/18 05:00 105/73 09/30/18 04:49 99 28 100 09/30/18 04:30 94 30 103/63 (76) 97 09/30/18 04:00 Mechanical Ventilator 09/30/18 04:00 100 09/30/18 04:00 97/64 09/30/18 04:00 82 09/30/18 04:00 98.3 82 28 97/64 (75) 95 09/30/18 03:30 88 29 87/47 (60) 96 09/30/18 03:05 102 33 100 09/30/18 03:01 111/67 09/30/18 03:01 156 111/67 09/30/18 03:00 104 32 113/63 (80) 96 09/30/18 03:00 113/63 09/30/18 02:30 103 32 116/71 (86) 95 09/30/18 02:00 111/63 09/30/18 02:00 100 32 111/63 (79) 95 09/30/18 01:30 101 30 105/63 (77) 95 09/30/18 01:26 95 31 100 09/30/18 01:00 97/70 09/30/18 01:00 101 31 97/70 (79) 95 09/30/18 00:30 100 28 97/64 (75) 95 09/30/18 00:00 99.3 102 30 102/59 (73) 94 09/30/18 00:00 102/59 09/30/18 00:00 98 09/30/18 00:00 Mechanical Ventilator 09/30/18 00:00 100 09/29/18 23:30 106 21 101/61 (74) 93 09/29/18 23:19 99 36 100 09/29/18 23:00 113 33 117/57 (77) 93 09/29/18 23:00 117/57 09/29/18 22:30 114 34 107/84 (92) 93 09/29/18 22:00 114 33 81/47 (58) 95 09/29/18 22:00 104/54 09/29/18 21:30 118 34 128/53 (78) 92 09/29/18 21:15 100.2 09/29/18 21:00 100.3 110 35 106/68 (81) 96 09/29/18 20:55 117 36 100 09/29/18 20:30 102 33 100/58 (72) 96 09/29/18 20:00 100.7 112 33 111/68 (82) 96 09/29/18 20:00 Mechanical Ventilator 09/29/18 20:00 111/68 09/29/18 20:00 100 09/29/18 20:00 118 09/29/18 19:39 164 132/60 09/29/18 19:30 122 32 132/60 (84) 98 09/29/18 19:22 121 32 100 09/29/18 19:00 115 25 122/65 (84) 93 09/29/18 18:30 108 25 124/67 (86) 93 09/29/18 18:00 103 25 115/65 (82) 93 09/29/18 17:50 128 09/29/18 17:30 104 25 122/68 (86) 93 09/29/18 17:00 117 25 118/66 (83) 93 09/29/18 16:47 176 32 100 09/29/18 16:30 98 25 105/68 (80) 93 09/29/18 16:00 118 09/29/18 16:00 Mechanical Ventilator 09/29/18 16:00 100 09/29/18 16:00 99.1 110 25 115/74 (88) 93 09/29/18 15:30 115 25 110/74 (86) 93 09/29/18 15:16 110 31 100 09/29/18 15:00 122 30 115/75 (88) 93 09/29/18 14:30 116 28 118/72 (87) 93 09/29/18 14:00 110 25 117/70 (86) 93 09/29/18 13:30 118 27 114/74 (87) 93 09/29/18 13:05 97 32 100 09/29/18 13:00 114 25 116/75 (89) 93 Intake and Output 09/29/18 09/30/18 19:00 07:00 Intake Total 420.37 ml 1124.37 ml Output Total 695 ml 1010 ml Balance -274.63 ml 114.37 ml Intake IV Total 420.37 ml 1074.37 ml Other 50 ml Output Urine Total 695 ml 1010 ml # Bowel Movements 2 Laboratory Tests 09/30/18 05:25: White Blood Count 14.0H, Red Blood Count 3.41L, Hemoglobin 10.7L, Hematocrit 33.0L, Mean Corpuscular Volume 97, Mean Corpuscular Hemoglobin 31.5H, Mean Corpuscular Hemoglobin Concent 32.5, Red Cell Distribution Width 16.9H, Platelet Count 59L, Mean Platelet Volume 11.8H, Neutrophils (%) (Auto) , Lymphocytes (%) (Auto) , Monocytes (%) (Auto) , Eosinophils (%) (Auto) , Basophils (%) (Auto) , Differential Total Cells Counted 100, Neutrophils % ( Manual) 81H, Lymphocytes % (Manual) 6L, Monocytes % (Manual) 10, Eosinophils % ( Manual) 3, Basophils % (Manual) 0, Band Neutrophils 0, Platelet Estimate DecreasedL, Platelet Morphology Normal, Hypochromasia 1+, Anisocytosis 1+, Sodium Level 145, Potassium Level 3.2L, Chloride Level 114H, Carbon Dioxide Level 19L, Anion Gap 12, Blood Urea Nitrogen 22H, Creatinine 1.5H, Estimat Glomerular Filtration Rate 46.8, Glucose Level 102#, Hemoglobin A1c 5.1, Uric Acid 5.5, Calcium Level 6.9L, Phosphorus Level 2.0L, Magnesium Level 1.9, Total Bilirubin 1.0, Gamma Glutamyl Transpeptidase 60, Aspartate Amino Transf (AST/ SGOT) 51H, Alanine Aminotransferase (ALT/SGPT) 14, Alkaline Phosphatase 98, Total Creatine Kinase 418H, Troponin I 0.000, C-Reactive Protein, Quantitative 30.1H, Pro-B-Type Natriuretic Peptide 6513H, Total Protein 5.5L, Albumin 1.9L, Globulin 3.6, Albumin/Globulin Ratio 0.5L, Triglycerides Level 95, Cholesterol Level 81, LDL Cholesterol 42, HDL Cholesterol 16L, Cholesterol/HDL Ratio 5.1H, Vitamin B12 Level 1703H, Folate 18.3 09/30/18 08:40: Arterial Blood pH 7.335L, Arterial Blood Partial Pressure CO2 32.9L, Arterial Blood Partial Pressure O2 119.5H, Arterial Blood HCO3 17.2*L, Arterial Blood Oxygen Saturation 98.2, Arterial Blood Base Excess -7.7L, [place] Test Positive Height (Feet): 5 Height (Inches): 6.00 Weight (Pounds): 154 EENT: other - vented Cardiovascular: tachycardia, arrhythmia Respiratory/Chest: decreased breath sounds Abdomen: distended Kaden Cordova MD Sep 30, 2018 12:36
[2018-09-30] MEDS ORDERED: Sodium Phosphate 30 MM in NS 275 ML IV ONE (12:45)
--- NOTE | 2018-09-30 14:00 | NUR ---
NURSE NOTES: Patient turned and repositioned. Bowel movement large, dark brown, x 1. Complete linen changed. No new orders. WIll continue plan of care.
[2018-09-30] MEDS: Midazolam 2mg/2ml Inj IVP PRN ×2 (14:58→20:06)
--- NOTE | 2018-09-30 15:11 | Infectious Diseases Prog Note ---
Assessment/Plan Assessment/Plan Abx: Ceftriaxone 09/26; 09/27- Zosyn x1 09/26 Assessment: Sepsis/Septic shock- now off pressors -Bcx NTD Probable UTI -u/a wbc 15-20, nit neg, leuk +3; ucx Morganella morganni (R ancef, amp; otherwise S) Low grade fever Leukocytosis, irmpoving Etoh intoxication Acute respiratory failure/ ARDS s/p intubation -CXR p Thrombocytopenia- probably in the setting of sepsis and bone marrow suppression 2ry to EtOH Afib w/ RVR KARLA, improving EtOH abuse, nephrolithiasis Plan: -Continue Cefepime #2 (abx d #5) to cover for probable Amp-C Morganella -09/29 SP Ceftriaxone #4 -09/26 SP Zosyn x1 -f.u cx -Monitor CBC/CMP, temperatures -f/u CXR =aspiration precautions -ETT/ICU care -sp cx Thank you for this consultation. Will continue to follow along with you. Discussed with radiology dept as none of the CXR has been uploaded to EMR (no image or report) Subjective Allergies: Coded Allergies: No Known Allergies (Unverified , 09/06/15) Subjective tm 100.7 wbc improving Bcx NTD fio2 down to 70% off pressors Objective Vital Signs Last 24 Hour Vital Signs Date Time Temp Pulse Resp B/P (MAP) Pulse Ox O2 Delivery O2 Flow Rate FiO2 09/30/18 13:03 117 36 75 09/30/18 13:00 107 25 132/72 (92) 95 09/30/18 12:00 80 09/30/18 12:00 Mechanical Ventilator 09/30/18 12:00 98.9 110 25 98/58 (71) 94 09/30/18 12:00 108 09/30/18 11:00 105 25 105/55 (72) 95 09/30/18 10:53 127 31 75 09/30/18 10:00 108 25 110/60 (77) 94 09/30/18 09:15 80 09/30/18 09:09 119 31 80 09/30/18 09:00 120 25 108/58 (75) 94 09/30/18 08:00 Mechanical Ventilator 09/30/18 08:00 98.7 105 23 100/64 (76) 94 09/30/18 08:00 100 09/30/18 08:00 104 09/30/18 07:35 120 39 100 09/30/18 07:00 102 23 121/69 (86) 94 09/30/18 06:00 129/68 09/30/18 06:00 102 32 129/68 (88) 97 09/30/18 05:30 88 25 119/68 (85) 98 09/30/18 05:00 92 29 105/73 (84) 98 09/30/18 05:00 105/73 09/30/18 04:49 99 28 100 09/30/18 04:30 94 30 103/63 (76) 97 09/30/18 04:00 Mechanical Ventilator 09/30/18 04:00 100 09/30/18 04:00 97/64 09/30/18 04:00 82 09/30/18 04:00 98.3 82 28 97/64 (75) 95 09/30/18 03:30 88 29 87/47 (60) 96 09/30/18 03:05 102 33 100 09/30/18 03:01 111/67 09/30/18 03:01 156 111/67 09/30/18 03:00 104 32 113/63 (80) 96 09/30/18 03:00 113/63 09/30/18 02:30 103 32 116/71 (86) 95 09/30/18 02:00 111/63 09/30/18 02:00 100 32 111/63 (79) 95 09/30/18 01:30 101 30 105/63 (77) 95 09/30/18 01:26 95 31 100 09/30/18 01:00 97/70 09/30/18 01:00 101 31 97/70 (79) 95 09/30/18 00:30 100 28 97/64 (75) 95 09/30/18 00:00 99.3 102 30 102/59 (73) 94 09/30/18 00:00 102/59 09/30/18 00:00 98 09/30/18 00:00 Mechanical Ventilator 09/30/18 00:00 100 09/29/18 23:30 106 21 101/61 (74) 93 09/29/18 23:19 99 36 100 09/29/18 23:00 113 33 117/57 (77) 93 09/29/18 23:00 117/57 09/29/18 22:30 114 34 107/84 (92) 93 09/29/18 22:00 114 33 81/47 (58) 95 09/29/18 22:00 104/54 09/29/18 21:30 118 34 128/53 (78) 92 09/29/18 21:15 100.2 09/29/18 21:00 100.3 110 35 106/68 (81) 96 09/29/18 20:55 117 36 100 09/29/18 20:30 102 33 100/58 (72) 96 09/29/18 20:00 100.7 112 33 111/68 (82) 96 09/29/18 20:00 Mechanical Ventilator 09/29/18 20:00 111/68 09/29/18 20:00 100 09/29/18 20:00 118 09/29/18 19:39 164 132/60 09/29/18 19:30 122 32 132/60 (84) 98 09/29/18 19:22 121 32 100 09/29/18 19:00 115 25 122/65 (84) 93 09/29/18 18:30 108 25 124/67 (86) 93 09/29/18 18:00 103 25 115/65 (82) 93 09/29/18 17:50 128 09/29/18 17:30 104 25 122/68 (86) 93 09/29/18 17:00 117 25 118/66 (83) 93 09/29/18 16:47 176 32 100 09/29/18 16:30 98 25 105/68 (80) 93 09/29/18 16:00 118 09/29/18 16:00 Mechanical Ventilator 09/29/18 16:00 100 09/29/18 16:00 99.1 110 25 115/74 (88) 93 09/29/18 15:30 115 25 110/74 (86) 93 09/29/18 15:16 110 31 100 09/29/18 15:00 122 30 115/75 (88) 93 Height (Feet): 5 Height (Inches): 6.00 Weight (Pounds): 154 Objective General Appearance: WD/WN, confused Lines, tubes and drains: peripheral HEENT: normocephalic, atraumatic Neck: non-tender, supple Respiratory/Chest: chest wall non-tender, lungs clear Cardiovascular/Chest: normal peripheral pulses Abdomen: normal bowel sounds Laboratory Tests Test 09/30/18 05:25 09/30/18 08:40 White Blood Count 14.0 K/UL (4.8-10.8) H Red Blood Count 3.41 M/UL (4.70-6.10) L Hemoglobin 10.7 G/DL (14.2-18.0) L Hematocrit 33.0 % (42.0-52.0) L Mean Corpuscular Volume 97 FL (80-99) Mean Corpuscular Hemoglobin 31.5 PG (27.0-31.0) H Mean Corpuscular Hemoglobin Concent 32.5 G/DL (32.0-36.0) Red Cell Distribution Width 16.9 % (11.6-14.8) H Platelet Count 59 K/UL (150-450) L Mean Platelet Volume 11.8 FL (6.5-10.1) H Neutrophils (%) (Auto) % (45.0-75.0) Lymphocytes (%) (Auto) % (20.0-45.0) Monocytes (%) (Auto) % (1.0-10.0) Eosinophils (%) (Auto) % (0.0-3.0) Basophils (%) (Auto) % (0.0-2.0) Differential Total Cells Counted 100 Neutrophils % (Manual) 81 % (45-75) H Lymphocytes % (Manual) 6 % (20-45) L Monocytes % (Manual) 10 % (1-10) Eosinophils % (Manual) 3 % (0-3) Basophils % (Manual) 0 % (0-2) Band Neutrophils 0 % (0-8) Platelet Estimate Decreased L Platelet Morphology Normal Hypochromasia 1+ Anisocytosis 1+ Sodium Level 145 MMOL/L (136-145) Potassium Level 3.2 MMOL/L (3.5-5.1) L Chloride Level 114 MMOL/L (98-107) H Carbon Dioxide Level 19 MMOL/L (21-32) L Anion Gap 12 mmol/L (5-15) Blood Urea Nitrogen 22 mg/dL (7-18) H Creatinine 1.5 MG/DL (0.55-1.30) H Estimat Glomerular Filtration Rate 46.8 mL/min (>60) Glucose Level 102 MG/DL (74-106) # Hemoglobin A1c 5.1 % (4.3-6.0) Uric Acid 5.5 MG/DL (2.6-7.2) Calcium Level 6.9 MG/DL (8.5-10.1) L Phosphorus Level 2.0 MG/DL (2.5-4.9) L Magnesium Level 1.9 MG/DL (1.8-2.4) Total Bilirubin 1.0 MG/DL (0.2-1.0) Gamma Glutamyl Transpeptidase 60 U/L (5-85) Aspartate Amino Transf (AST/SGOT) 51 U/L (15-37) H Alanine Aminotransferase (ALT/SGPT) 14 U/L (12-78) Alkaline Phosphatase 98 U/L (46-116) Total Creatine Kinase 418 U/L (26-308) H Troponin I 0.000 ng/mL (0.000-0.056) C-Reactive Protein, Quantitative 30.1 mg/dL (0.00-0.90) H Pro-B-Type Natriuretic Peptide 6513 pg/mL (0-125) H Total Protein 5.5 G/DL (6.4-8.2) L Albumin 1.9 G/DL (3.4-5.0) L Globulin 3.6 g/dL Albumin/Globulin Ratio 0.5 (1.0-2.7) L Triglycerides Level 95 MG/DL (30-150) Cholesterol Level 81 MG/DL (< 200) LDL Cholesterol 42 mg/dL (<100) HDL Cholesterol 16 MG/DL (40-60) L Cholesterol/HDL Ratio 5.1 (3.3-4.4) H Vitamin B12 Level 1703 PG/ML (193-986) H Folate 18.3 NG/ML (8.6-58.9) Arterial Blood pH 7.335 (7.350-7.450) Arterial Blood Partial Pressure CO2 32.9 mmHg (35.0-45.0) L Arterial Blood Partial Pressure O2 119.5 mmHg (75.0-100.0) H Arterial Blood HCO3 17.2 mmol/L (22.0-26.0) *L Arterial Blood Oxygen Saturation 98.2 % (95-100) Arterial Blood Base Excess -7.7 (-2-2) L Blaine Test Positive Current Medications Medications (Trade) Dose Ordered Sig/Hoa Route PRN Reason Start Time Stop Time Status Last Admin Dose Admin Acetaminophen (Tylenol) 650 mg Q4H PRN ORAL fever (temp>100.5F) 09/28/18 03:45 10/26/18 19:44 09/29/18 20:45 Cefepime HCl 1 gm/ Dextrose 55 ml @ 110 mls/hr Q24H IVPB 09/29/18 17:00 10/06/18 16:59 09/29/18 17:49 Chlordiazepoxide (Librium) 25 mg TIDPRN PRN ORAL Agitation 09/28/18 19:45 10/04/18 19:44 Chlorhexidine Gluconate (Zainab-Hex 2%) 1 applic DAILY@2000 TOPIC 09/29/18 20:00 10/29/18 19:59 09/29/18 19:38 Clonazepam (KlonoPIN) 0.5 mg Q6H PRN ORAL For Anxiety 09/28/18 02:00 10/04/18 07:59 Dextrose (Dextrose 50%) 25 ml Q30M PRN IV Hypoglycemia 09/28/18 01:30 10/26/18 17:59 Dextrose (Dextrose 50%) 50 ml Q30M PRN IV Hypoglycemia 09/28/18 01:30 10/26/18 17:59 Dextrose/ Electrolytes 1,000 ml @ 75 mls/hr [id number] IV 09/29/18 14:00 10/29/18 13:59 09/30/18 02:02 Diphenhydramine HCl (Benadryl) 25 mg Q6H PRN ORAL Itching/Pruritis 09/28/18 01:45 10/27/18 19:44 Ipratropium [place] (Atrovent) 500 mcg Q4H PRN HHN Shortness of Breath 09/28/18 04:00 10/02/18 19:59 09/28/18 23:11 Lorazepam (Ativan 2mg/ml 1ml) 1 mg Q1H PRN IV agitation, cofusion, dt 09/28/18 12:45 10/05/18 12:44 09/30/18 02:02 Metoprolol Tartrate 5 mg/ Dextrose 60 ml @ 130 mls/hr Q6HR PRN IVPB hr greater than 118 09/28/18 09:30 10/28/18 09:29 09/30/18 03:01 Midazolam HCl (Versed 2mg/2ml vial) 1 mg Q1H PRN IVP Agitation 09/28/18 13:00 10/28/18 12:59 09/29/18 23:11 Morphine Sulfate (Morphine Sulfate) 4 mg Q2H PRN IV For Pain (7-10) 09/28/18 02:00 10/03/18 17:59 09/28/18 22:49 Norepinephrine Bitartrate 4 mg/ Dextrose 250 ml @ 0 mls/hr Q24H IV 09/29/18 00:30 10/29/18 00:29 09/30/18 03:01 Ondansetron HCl (Zofran) 4 mg Q6H PRN IVP Nausea & Vomiting 09/28/18 01:45 10/27/18 19:44 Pantoprazole (Protonix) 40 mg EVERY 12 HOURS IVP 09/29/18 21:00 10/29/18 20:59 09/30/18 10:08 Potassium Phosphate 30 mm/ Sodium Chloride 285 ml @ 47.5 mls/hr ONCE ONCE IV 09/30/18 11:00 09/30/18 16:59 09/30/18 11:28 Quetiapine Fumarate (SEROquel) 50 mg Q12HR ORAL 09/28/18 21:00 10/27/18 08:59 09/30/18 10:08 Temazepam (Restoril) 15 mg HSPRN PRN ORAL Insomnia 09/28/18 19:45 10/04/18 19:44 Thiamine HCl 100 mg/Dextrose 111 ml @ 220 mls/hr Q24H IVPB 09/28/18 11:00 10/28/18 10:59 09/30/18 11:27 Jes Taylor M.D. Sep 30, 2018 15:11
--- NOTE | 2018-09-30 15:21 | Cardiology Progress Note ---
Assessment/Plan Assessment/Plan tachy ? MAT vs sinus svt hypotension septic shock ards alcohol with drawl syndrome ams etoh intoxication respiratory failure thrombocytopenia not seem to be in afib trial activity is visible on the strip and ekg has intermittent very rapid run of svt and some wide complex tachy intubated on bryant vent now off pressor ivf cxr appearence of ards still quite abn reviewed personally echo normal lv systolic function ekg noted form yest repordered one for today monitor mcl 1 lead on tele may be better showing of the atrial activity bb iv dig one time given 09/29 iv abx ivf bolus torp neg treated for pending DT / etoh withdraw signs d/w mba intern reviewed remains quite ill still with high morteza oxygen but oxygenation adn wbc and bp are all better Subjective ROS Limited/Unobtainable: Yes Subjective intuabeted Objective Last 24 Hour Vital Signs Date Time Temp Pulse Resp B/P (MAP) Pulse Ox O2 Delivery O2 Flow Rate FiO2 09/30/18 15:03 120 38 75 09/30/18 13:03 117 36 75 09/30/18 13:00 107 25 132/72 (92) 95 09/30/18 12:00 80 09/30/18 12:00 Mechanical Ventilator 09/30/18 12:00 98.9 110 25 98/58 (71) 94 09/30/18 12:00 108 09/30/18 11:00 105 25 105/55 (72) 95 09/30/18 10:53 127 31 75 09/30/18 10:00 108 25 110/60 (77) 94 09/30/18 09:15 80 09/30/18 09:09 119 31 80 09/30/18 09:00 120 25 108/58 (75) 94 09/30/18 08:00 Mechanical Ventilator 09/30/18 08:00 98.7 105 23 100/64 (76) 94 09/30/18 08:00 100 09/30/18 08:00 104 09/30/18 07:35 120 39 100 09/30/18 07:00 102 23 121/69 (86) 94 09/30/18 06:00 129/68 09/30/18 06:00 102 32 129/68 (88) 97 09/30/18 05:30 88 25 119/68 (85) 98 09/30/18 05:00 92 29 105/73 (84) 98 09/30/18 05:00 105/73 09/30/18 04:49 99 28 100 09/30/18 04:30 94 30 103/63 (76) 97 09/30/18 04:00 Mechanical Ventilator 09/30/18 04:00 100 09/30/18 04:00 97/64 09/30/18 04:00 82 09/30/18 04:00 98.3 82 28 97/64 (75) 95 09/30/18 03:30 88 29 87/47 (60) 96 09/30/18 03:05 102 33 100 09/30/18 03:01 111/67 09/30/18 03:01 156 111/67 09/30/18 03:00 104 32 113/63 (80) 96 09/30/18 03:00 113/63 09/30/18 02:30 103 32 116/71 (86) 95 09/30/18 02:00 111/63 09/30/18 02:00 100 32 111/63 (79) 95 09/30/18 01:30 101 30 105/63 (77) 95 09/30/18 01:26 95 31 100 09/30/18 01:00 97/70 09/30/18 01:00 101 31 97/70 (79) 95 09/30/18 00:30 100 28 97/64 (75) 95 09/30/18 00:00 99.3 102 30 102/59 (73) 94 09/30/18 00:00 102/59 09/30/18 00:00 98 09/30/18 00:00 Mechanical Ventilator 09/30/18 00:00 100 09/29/18 23:30 106 21 101/61 (74) 93 09/29/18 23:19 99 36 100 09/29/18 23:00 113 33 117/57 (77) 93 09/29/18 23:00 117/57 09/29/18 22:30 114 34 107/84 (92) 93 09/29/18 22:00 114 33 81/47 (58) 95 09/29/18 22:00 104/54 09/29/18 21:30 118 34 128/53 (78) 92 09/29/18 21:15 100.2 09/29/18 21:00 100.3 110 35 106/68 (81) 96 09/29/18 20:55 117 36 100 09/29/18 20:30 102 33 100/58 (72) 96 09/29/18 20:00 100.7 112 33 111/68 (82) 96 09/29/18 20:00 Mechanical Ventilator 09/29/18 20:00 111/68 09/29/18 20:00 100 09/29/18 20:00 118 09/29/18 19:39 164 132/60 09/29/18 19:30 122 32 132/60 (84) 98 09/29/18 19:22 121 32 100 09/29/18 19:00 115 25 122/65 (84) 93 09/29/18 18:30 108 25 124/67 (86) 93 09/29/18 18:00 103 25 115/65 (82) 93 09/29/18 17:50 128 09/29/18 17:30 104 25 122/68 (86) 93 09/29/18 17:00 117 25 118/66 (83) 93 09/29/18 16:47 176 32 100 09/29/18 16:30 98 25 105/68 (80) 93 09/29/18 16:00 118 09/29/18 16:00 Mechanical Ventilator 09/29/18 16:00 100 09/29/18 16:00 99.1 110 25 115/74 (88) 93 09/29/18 15:30 115 25 110/74 (86) 93 General Appearance: no apparent distress, on vent, patient on isolation Neck: supple Cardiovascular: normal rate, tachycardia Respiratory/Chest: crackles/rales Abdomen: normal bowel sounds, non tender, soft Extremities: no swelling Intake and Output 09/29/18 09/30/18 19:00 07:00 Intake Total 420.37 ml 1124.37 ml Output Total 695 ml 1010 ml Balance -274.63 ml 114.37 ml Intake IV Total 420.37 ml 1074.37 ml Other 50 ml Output Urine Total 695 ml 1010 ml # Bowel Movements 2 Laboratory Tests Test 09/30/18 05:25 09/30/18 08:40 White Blood Count 14.0 K/UL (4.8-10.8) H Red Blood Count 3.41 M/UL (4.70-6.10) L Hemoglobin 10.7 G/DL (14.2-18.0) L Hematocrit 33.0 % (42.0-52.0) L Mean Corpuscular Volume 97 FL (80-99) Mean Corpuscular Hemoglobin 31.5 PG (27.0-31.0) H Mean Corpuscular Hemoglobin Concent 32.5 G/DL (32.0-36.0) Red Cell Distribution Width 16.9 % (11.6-14.8) H Platelet Count 59 K/UL (150-450) L Mean Platelet Volume 11.8 FL (6.5-10.1) H Neutrophils (%) (Auto) % (45.0-75.0) Lymphocytes (%) (Auto) % (20.0-45.0) Monocytes (%) (Auto) % (1.0-10.0) Eosinophils (%) (Auto) % (0.0-3.0) Basophils (%) (Auto) % (0.0-2.0) Differential Total Cells Counted 100 Neutrophils % (Manual) 81 % (45-75) H Lymphocytes % (Manual) 6 % (20-45) L Monocytes % (Manual) 10 % (1-10) Eosinophils % (Manual) 3 % (0-3) Basophils % (Manual) 0 % (0-2) Band Neutrophils 0 % (0-8) Platelet Estimate Decreased L Platelet Morphology Normal Hypochromasia 1+ Anisocytosis 1+ Sodium Level 145 MMOL/L (136-145) Potassium Level 3.2 MMOL/L (3.5-5.1) L Chloride Level 114 MMOL/L (98-107) H Carbon Dioxide Level 19 MMOL/L (21-32) L Anion Gap 12 mmol/L (5-15) Blood Urea Nitrogen 22 mg/dL (7-18) H Creatinine 1.5 MG/DL (0.55-1.30) H Estimat Glomerular Filtration Rate 46.8 mL/min (>60) Glucose Level 102 MG/DL (74-106) # Hemoglobin A1c 5.1 % (4.3-6.0) Uric Acid 5.5 MG/DL (2.6-7.2) Calcium Level 6.9 MG/DL (8.5-10.1) L Phosphorus Level 2.0 MG/DL (2.5-4.9) L Magnesium Level 1.9 MG/DL (1.8-2.4) Total Bilirubin 1.0 MG/DL (0.2-1.0) Gamma Glutamyl Transpeptidase 60 U/L (5-85) Aspartate Amino Transf (AST/SGOT) 51 U/L (15-37) H Alanine Aminotransferase (ALT/SGPT) 14 U/L (12-78) Alkaline Phosphatase 98 U/L (46-116) Total Creatine Kinase 418 U/L (26-308) H Troponin I 0.000 ng/mL (0.000-0.056) C-Reactive Protein, Quantitative 30.1 mg/dL (0.00-0.90) H Pro-B-Type Natriuretic Peptide 6513 pg/mL (0-125) H Total Protein 5.5 G/DL (6.4-8.2) L Albumin 1.9 G/DL (3.4-5.0) L Globulin 3.6 g/dL Albumin/Globulin Ratio 0.5 (1.0-2.7) L Triglycerides Level 95 MG/DL (30-150) Cholesterol Level 81 MG/DL (< 200) LDL Cholesterol 42 mg/dL (<100) HDL Cholesterol 16 MG/DL (40-60) L Cholesterol/HDL Ratio 5.1 (3.3-4.4) H Vitamin B12 Level 1703 PG/ML (193-986) H Folate 18.3 NG/ML (8.6-58.9) Arterial Blood pH 7.335 (7.350-7.450) Arterial Blood Partial Pressure CO2 32.9 mmHg (35.0-45.0) L Arterial Blood Partial Pressure O2 119.5 mmHg (75.0-100.0) H Arterial Blood HCO3 17.2 mmol/L (22.0-26.0) *L Arterial Blood Oxygen Saturation 98.2 % (95-100) Arterial Blood Base Excess -7.7 (-2-2) L Bl[place] Test Positive Mumtaz Leon MD Sep 30, 2018 15:21
--- NOTE | 2018-09-30 15:36 | NUR ---
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 DEHYDRATION . HEMATURIA VS: BP 98/58, P 120, T 98.9, RR 38, SpO2 94 ETT FiO2 80 WBC 14.0, HgB 10.7, Hct 33.0, HCO3 17.2, K 3.2, BUN 22, CR 1.5 IS:POTASSIUM PHOSPHATE 30mm 285ml IV PROTONIX 40mg D5/ ELECTROLYTES x1L IV NOREPINEPHRINE BITARTRATE 4mg 250ml IV SEROQUEL 50mg MIDAZOLAM HCI 1mg IVP LORAZEPAM 1mG IV METOPROLOL 60ml IVPB ICU STATUS
--- NOTE | 2018-09-30 16:00 | NUR ---
NURSE NOTES: Patient turned and repositioned. No new orders. Will follow plan of care.
--- NOTE | 2018-09-30 16:13 | NUR ---
*-* ISNURANCE *-* UPDATED REVIEWS FAXED TO: FAXED TO THE [facility] FAX NUMBER [facility] [phone] Work Work Fax
--- NOTE | 2018-09-30 18:00 | NUR ---
NURSE NOTES: Patient turned and repositioned. No new orders at this time. Will continue to monitor patient.
[2018-09-30] MEDS: Cefepime HCl 1 GM in D5W 55 ML IVPB SCH (18:03)
[2018-09-30] MEDS ORDERED: D5W 275ml ONE ×2 (18:53→19:03)
--- NOTE | 2018-09-30 18:54 | Internal Med Progress Note ---
Subjective Date of Service: Sep 30, 2018 Physician Name Castellano,Sanford Attending Physician Benjamin Sterling MD Current Medications Medications (Trade) Dose Ordered Sig/Hoa Route PRN Reason Start Time Stop Time Status Last Admin Dose Admin Acetaminophen (Tylenol) 650 mg Q4H PRN ORAL fever (temp>100.5F) 09/28/18 03:45 10/26/18 19:44 09/29/18 20:45 Cefepime HCl 1 gm/ Dextrose 55 ml @ 110 mls/hr Q24H IVPB 09/29/18 17:00 10/06/18 16:59 09/30/18 18:03 Chlordiazepoxide (Librium) 25 mg TIDPRN PRN ORAL Agitation 09/28/18 19:45 10/04/18 19:44 Chlorhexidine Gluconate (Zainab-Hex 2%) 1 applic DAILY@2000 TOPIC 09/29/18 20:00 10/29/18 19:59 09/29/18 19:38 Clonazepam (KlonoPIN) 0.5 mg Q6H PRN ORAL For Anxiety 09/28/18 02:00 10/04/18 07:59 Dextrose (Dextrose 50%) 25 ml Q30M PRN IV Hypoglycemia 09/28/18 01:30 10/26/18 17:59 Dextrose (Dextrose 50%) 50 ml Q30M PRN IV Hypoglycemia 09/28/18 01:30 10/26/18 17:59 Dextrose/ Electrolytes 1,000 ml @ 75 mls/hr [id number] IV 09/29/18 14:00 10/29/18 13:59 09/30/18 02:02 Diphenhydramine HCl (Benadryl) 25 mg Q6H PRN ORAL Itching/Pruritis 09/28/18 01:45 10/27/18 19:44 Ipratropium [place] (Atrovent) 500 mcg Q4H PRN HHN Shortness of Breath 09/28/18 04:00 10/02/18 19:59 09/28/18 23:11 Lorazepam (Ativan 2mg/ml 1ml) 1 mg Q1H PRN IV agitation, cofusion, dt 09/28/18 12:45 10/05/18 12:44 09/30/18 02:02 Metoprolol Tartrate 5 mg/ Dextrose 60 ml @ 130 mls/hr Q6HR PRN IVPB hr greater than 118 09/28/18 09:30 10/28/18 09:29 09/30/18 03:01 Midazolam HCl (Versed 2mg/2ml vial) 1 mg Q1H PRN IVP Agitation 09/28/18 13:00 10/28/18 12:59 09/30/18 14:58 Morphine Sulfate (Morphine Sulfate) 4 mg Q2H PRN IV For Pain (7-10) 09/28/18 02:00 10/03/18 17:59 09/28/18 22:49 Norepinephrine Bitartrate 4 mg/ Dextrose 250 ml @ 0 mls/hr Q24H IV 09/29/18 00:30 10/29/18 00:29 09/30/18 03:01 Ondansetron HCl (Zofran) 4 mg Q6H PRN IVP Nausea & Vomiting 09/28/18 01:45 10/27/18 19:44 Pantoprazole (Protonix) 40 mg EVERY 12 HOURS IVP 09/29/18 21:00 10/29/18 20:59 09/30/18 10:08 Quetiapine Fumarate (SEROquel) 50 mg Q12HR ORAL 09/28/18 21:00 10/27/18 08:59 09/30/18 10:08 Temazepam (Restoril) 15 mg HSPRN PRN ORAL Insomnia 09/28/18 19:45 10/04/18 19:44 Thiamine HCl 100 mg/Dextrose 111 ml @ 220 mls/hr Q24H IVPB 09/28/18 11:00 10/28/18 10:59 09/30/18 11:27 Allergies: Coded Allergies: No Known Allergies (Unverified , 09/06/15) ROS Limited/Unobtainable: Yes Subjective 68 YO M admitted with hematuria and hypotension. Now atrial fibrillation with rapid ventricular rate. Cover for Int Ash-Dr Sterling. ICU. Intubated and sedated Objective Last Vital Signs Date Time Temp Pulse Resp B/P (MAP) Pulse Ox O2 Delivery O2 Flow Rate FiO2 09/30/18 18:00 104 22 108/60 (76) 95 09/30/18 17:59 75 09/30/18 16:00 Mechanical Ventilator 09/30/18 16:00 99.1 09/29/18 00:00 15.0 Laboratory Tests Test 09/30/18 05:25 09/30/18 08:40 White Blood Count 14.0 K/UL (4.8-10.8) H Red Blood Count 3.41 M/UL (4.70-6.10) L Hemoglobin 10.7 G/DL (14.2-18.0) L Hematocrit 33.0 % (42.0-52.0) L Mean Corpuscular Volume 97 FL (80-99) Mean Corpuscular Hemoglobin 31.5 PG (27.0-31.0) H Mean Corpuscular Hemoglobin Concent 32.5 G/DL (32.0-36.0) Red Cell Distribution Width 16.9 % (11.6-14.8) H Platelet Count 59 K/UL (150-450) L Mean Platelet Volume 11.8 FL (6.5-10.1) H Neutrophils (%) (Auto) % (45.0-75.0) Lymphocytes (%) (Auto) % (20.0-45.0) Monocytes (%) (Auto) % (1.0-10.0) Eosinophils (%) (Auto) % (0.0-3.0) Basophils (%) (Auto) % (0.0-2.0) Differential Total Cells Counted 100 Neutrophils % (Manual) 81 % (45-75) H Lymphocytes % (Manual) 6 % (20-45) L Monocytes % (Manual) 10 % (1-10) Eosinophils % (Manual) 3 % (0-3) Basophils % (Manual) 0 % (0-2) Band Neutrophils 0 % (0-8) Platelet Estimate Decreased L Platelet Morphology Normal Hypochromasia 1+ Anisocytosis 1+ Sodium Level 145 MMOL/L (136-145) Potassium Level 3.2 MMOL/L (3.5-5.1) L Chloride Level 114 MMOL/L (98-107) H Carbon Dioxide Level 19 MMOL/L (21-32) L Anion Gap 12 mmol/L (5-15) Blood Urea Nitrogen 22 mg/dL (7-18) H Creatinine 1.5 MG/DL (0.55-1.30) H Estimat Glomerular Filtration Rate 46.8 mL/min (>60) Glucose Level 102 MG/DL (74-106) # Hemoglobin A1c 5.1 % (4.3-6.0) Uric Acid 5.5 MG/DL (2.6-7.2) Calcium Level 6.9 MG/DL (8.5-10.1) L Phosphorus Level 2.0 MG/DL (2.5-4.9) L Magnesium Level 1.9 MG/DL (1.8-2.4) Total Bilirubin 1.0 MG/DL (0.2-1.0) Gamma Glutamyl Transpeptidase 60 U/L (5-85) Aspartate Amino Transf (AST/SGOT) 51 U/L (15-37) H Alanine Aminotransferase (ALT/SGPT) 14 U/L (12-78) Alkaline Phosphatase 98 U/L (46-116) Total Creatine Kinase 418 U/L (26-308) H Troponin I 0.000 ng/mL (0.000-0.056) C-Reactive Protein, Quantitative 30.1 mg/dL (0.00-0.90) H Pro-B-Type Natriuretic Peptide 6513 pg/mL (0-125) H Total Protein 5.5 G/DL (6.4-8.2) L Albumin 1.9 G/DL (3.4-5.0) L Globulin 3.6 g/dL Albumin/Globulin Ratio 0.5 (1.0-2.7) L Triglycerides Level 95 MG/DL (30-150) Cholesterol Level 81 MG/DL (< 200) LDL Cholesterol 42 mg/dL (<100) HDL Cholesterol 16 MG/DL (40-60) L Cholesterol/HDL Ratio 5.1 (3.3-4.4) H Vitamin B12 Level 1703 PG/ML (193-986) H Folate 18.3 NG/ML (8.6-58.9) Arterial Blood pH 7.335 (7.350-7.450) Arterial Blood Partial Pressure CO2 32.9 mmHg (35.0-45.0) L Arterial Blood Partial Pressure O2 119.5 mmHg (75.0-100.0) H Arterial Blood HCO3 17.2 mmol/L (22.0-26.0) *L Arterial Blood Oxygen Saturation 98.2 % (95-100) Arterial Blood Base Excess -7.7 (-2-2) L [place] Test Positive Intake and Output 09/29/18 09/30/18 19:00 07:00 Intake Total 420.37 ml 1124.37 ml Output Total 695 ml 1010 ml Balance -274.63 ml 114.37 ml Intake IV Total 420.37 ml 1074.37 ml Other 50 ml Output Urine Total 695 ml 1010 ml # Bowel Movements 2 Objective General Appearance: WD/WN, no apparent distress, alert EENT: PERRL/EOMI, normal ENT inspection, TMs normal Neck: non-tender, normal alignment, supple, normal inspection Cardiovascular: Tachy; irreg/irreg; normal peripheral pulses, normal rate, no gallop/murmur, no JVD Respiratory/Chest: Mech vent; chest wall non-tender, lungs clear, coarse upper breath sounds, no respiratory distress, no accessory muscle use Abdomen: normal bowel sounds, non tender, soft, no organomegaly, no mass Extremities: normal range of motion, non-tender Neurologic: head of digital II-XII grossly normal, no motor/sensory deficts Assessment/Plan Assessment/Plan Assessment/Plan Assessment/Plan Problem List: (1) Severe sepsis ICD Codes: A41.9 - Sepsis, unspecified organism; R65.20 - Severe sepsis without septic shock SNOMED: 51538012 (2) Acute alcoholic intoxication ICD Codes: F10.129 - Alcohol abuse with intoxication, unspecified SNOMED: 98761906 (3) Nephrolithiasis ICD Codes: N20.0 - Calculus of kidney SNOMED: 99274322 (4) Hematuria ICD Codes: R31.9 - Hematuria, unspecified SNOMED: 07228268 5. Atrial fibrillation with rapid ventricular rate 6. Respiratory failure/ARDS Assessment/Plan fernandez cultures iv abx banana bag Librium, Seroquel and Klonipin iv abx, ID evaluation Metoprolol drip per Cardiology ICU status Cont mech vent per pulmonary Abx=Cefepime Sanford Castellano MD Sep 30, 2018 18:54
[2018-09-30] MEDS ORDERED: Sterile Water Irrig 1000ml IRRIG ONE (19:03)
[2018-09-30] MEDS ORDERED: NS 275ml ONE (19:03)
--- NOTE | 2018-09-30 19:10 | NUR ---
HAND-OFF: Report given to Armando LOMBARDI RN using SBAR. VSS. No distress noted.
--- NOTE | 2018-09-30 19:14 | Cardiology Report ---
APPROVED REPORT EKG Measurement Heart [id number] Atrial fibrillation Nonspecific T wave abnormality Abnormal ECG
--- NOTE | 2018-09-30 19:14 | Cardiology Report ---
APPROVED REPORT EKG Measurement Heart [id number] Sinus tachycardia with frequent, and consecutive premature ventricular complexes Nonspecific T wave abnormality Abnormal ECG
--- NOTE | 2018-09-30 19:14 | Cardiology Report ---
APPROVED REPORT EKG Measurement Heart [id number] [place] 160P [id number] Atrial fibrillation with frequent, and consecutive premature ventricular complexes Nonspecific T wave abnormality Abnormal ECG
--- NOTE | 2018-09-30 19:15 | Diagnostic Imaging Report ---
Indication: Dyspnea Comparison: 09/29/2018 A single view chest radiograph was obtained. Findings: Extensive airspace opacities demonstrated once again within the lungs. There is suggestion of cardiomegaly. Tubes and lines are stable. IMPRESSION: No tar heat exchanger cleaner the last day
--- NOTE | 2018-09-30 19:16 | Diagnostic Imaging Report ---
APPROVED REPORT CPT Code: 38998 Present Symptoms Shortness of breath BILATERAL: Imaging reveals a patent deep venous system bilaterally. There is no evidence of thrombus within the common femoral, superficial femoral, popliteal or tibial segments. The greater saphenous veins are within normal limits. Doppler indicates normal spontaneous flow within these segments.
--- NOTE | 2018-09-30 19:17 | Cardiology Report ---
APPROVED REPORT EKG Measurement Heart [id number] sinus with svt
[2018-09-30] MEDS: Dyna-Hex 2% Top Sol 2oz TOPIC SCH (19:42)
--- NOTE | 2018-09-30 19:45 | NUR ---
NURSE NOTES: PATIENT RESTRESS, LETHARGIC DID NOT FOLLOWED COMMANDS STATUS, ON ETT TO VENT AC16/TV600/FIO2 75%/PEEP 5, SATURATION 99% NOTED, OGT INTACT AND PATENT, KEPT NPO ORDERED, ABDOMEN SOFT, F/C INTACT AND PATENT, KRISTINE COLOR URINE OUTED, TLC TO RIGHT FEMORAL, INTACT AND PATENT, PERIPHERAL LINE TO LEFT AC 18 G, RIGHT HAND AND RIGHT FOREARM 20G INTACT AND PATENT, ONGOING D5W 1/2NS W/ KCL 20MEQ AT 75ML/HR VIA TLC, 2 POINT SOFT RESTRAINTS FOR SAFETY, HOB 30 DEGREE STATUS, MADE LOWER BED POSITION AND PROVIDED CALL LIGHT WITHIN REACH, WILL CONTINUE TO MONITOR.
--- NOTE | 2018-09-30 20:06 | NUR ---
NURSE NOTES: PATIENT IRRITABLE IN BED AND AGITATED, GIVEN VERSED 1MG BY IVP SLOWLY PER PRN ORDER, SECURED 2 POINT SOFT RESTRAINTS, WILL CONTINUE TO MONITOR.
--- NOTE | 2018-09-30 21:45 | NUR ---
NURSE NOTES: PATIENT TRIED TO OUT OF BED, SECURED RESTRAINTS, MADE LOWER BED POSITION AND ON BED ALARM, WILL CONTINUE TO MONITOR.
--- NOTE | 2018-09-30 23:55 | NUR ---
NURSE NOTES: NO PAIN NOTED , ON SCD'S TO BOTH LEGS, PROVIDED CALL LIGHT WITHIN REACH, WILL CONTINUE PLAN OF CARE.
[2018-10-01] VITALS (32 sets, daily range): BP systolic 87–124; BP diastolic 40–98
[2018-10-01] MEDS: LORazepam Inj 2mg/ml 1ml IV PRN ×2 (02:20→08:30)
[2018-10-01] MEDS: Metoprolol Tartrate 5 MG in D5W 55 ML IVPB PRN (02:20)
--- NOTE | 2018-10-01 02:20 | NUR ---
NURSE NOTES: PATIENT AWOKE, AGITATED, TRIED TO KICKING AND OUT OF BED, HR 170'S NOTED THAT GIVEN ATIVAN 1 MG BY IVP SLOWLY PRN FOR AGITATION AND STARTED LOPRESSOR 5MG IVPB PRN ORDERED HR OVER 118/MIN, WILL CONTINUE TO MONITOR.
--- NOTE | 2018-10-01 04:00 | NUR ---
NURSE NOTES: MORNING CARE AND ORAL CARE WAS DONE, RESISTANCE TO CARE, WILL CONTINUE TO MONITOR.
[2018-10-01 05:19] LABS: HEMATOCRIT 30.3 % (42.0-52.0); HEMOGLOBIN 9.6 G/DL (14.2-18.0); MEAN CORPUSCULAR VOLUME 97 FL (80-99); PLATELET COUNT 79 K/UL (150-450); RED BLOOD COUNT 3.11 M/UL (4.70-6.10); RED CELL DISTRIBUTION WIDTH 16.6 % (11.6-14.8); WHITE BLOOD COUNT 8.8 K/UL (4.8-10.8)
[2018-10-01 06:01] LABS: ALANINE AMINOTRANSFERASE 15 U/L (12-78); ALBUMIN 1.6 G/DL (3.4-5.0); ALBUMIN/GLOBULIN RATIO 0.4 (1.0-2.7); ALKALINE PHOSPHATASE 86 U/L (46-116); ANION GAP 11 mmol/L (5-15); ASPARTATE AMINO TRANSFERASE 40 U/L (15-37); BILIRUBIN,TOTAL 0.9 MG/DL (0.2-1.0); BLOOD UREA NITROGEN 19 mg/dL (7-18); CALCIUM 6.9 MG/DL (8.5-10.1); CARBON DIOXIDE 22 MMOL/L (21-32); CHLORIDE 115 MMOL/L (98-107); CREATININE 1.5 MG/DL (0.55-1.30); PHOSPHORUS 2.7 MG/DL (2.5-4.9); POTASSIUM 3.2 MMOL/L (3.5-5.1); SODIUM 148 MMOL/L (136-145)
--- NOTE | 2018-10-01 06:20 | NUR ---
NURSE NOTES: PATIENT ASLEEP ON AND OFF, NO PAIN OR DISTRESS NOTED AT THIS TIME.
--- NOTE | 2018-10-01 06:52 | NUR ---
RESPIRATORY NOTE: Received pt orally intubated with ETT 7.5 @23 cm lips line, secured by anchor fast, with vent settings: AC 16-600ml-75%FiO2- peep 5. Rob diminished breath sounds heard upon auscultation, sxn moderate amount of thick/thin white gibbs secretions without incidents. Pt is reall agitated, tachy cardia HR 170 bpm, tachypneic RR 35 bpm, saturtes at 100%. Pt is not in distress at this time. Bite block in place to prevent bitting, alarms are on and audible, vent is plugged into the red outlet, ambu bag is at bedside. Will continue to monitor pt.
--- NOTE | 2018-10-01 07:15 | NUR ---
NURSE NOTES: Report was received from Tian RN. Pt is restless, opens eyes to voice/name. ETT 7.[address] at 23cm right lipline, AC 16, TV600, Peep5.0, FIO2 75% with 100%O2sat. cardiac monitor displays irregular rhythm with HR fluctuating from 170's-70's. OG tube in place, pt is currently NPO. Steen catheter present draining dark melvin/pink urine. Right Femoral TLC present, infusing D5 0.45% [id number] at 75mL/hr. Peripheral IV access on left AC#18G, right hand #20G, and right FA #20G, all saline locks, patent/intact. Bilateral soft wrist restraints present, skin integrity within normal limits at restraint site. Skin is intact, with bilateral SCDs in place. Bed locked, in lowest position, with three side rails up and call light within easy reach. Will continue to monitor pt and follow plan of care per MD orders and protocol.
--- NOTE | 2018-10-01 07:15 | NUR ---
HAND-OFF: Report given to YING PAPPAS AND YING PATEL.
[2018-10-01] MEDS ORDERED: Digoxin 0.5mg/2ml Inj IVP SCH (08:30)
[2018-10-01] MEDS: Pantoprazole Inj IVP SCH ×2 (08:38→20:31)
--- NOTE | 2018-10-01 09:00 | NUR ---
NURSE NOTES: Dr Cordova saw pt at bedside, IV fluid changed to D5W KCL 20meq at 75mL/hour and KCL 10meq added (4 doses total). Will follow as ordered. Oral care done. Ativan was administered for anxiety/restlessness. Will continue to monitor.
[2018-10-01] MEDS: D5W w/KCl 20mEq 1,000 ML IV SCH ×2 (09:09→22:19)
--- NOTE | 2018-10-01 09:45 | NUR ---
RADIOLOGY DEPT., CHEST X-RAY DONE.-P.DYE
[2018-10-01] MEDS: Thiamine HCl 100 MG in D5W 110 ML IVPB SCH (10:23)
--- NOTE | 2018-10-01 10:30 | Pulmonolgy Critical Care Note ---
Critical Care - Asmt/Plan Problems: (1) Acute respiratory failure with hypoxemia (2) ARDS (adult respiratory distress syndrome) (3) ATN (acute tubular necrosis) (4) Delirium tremens (5) Rapid atrial fibrillation Respiratory: monitor respiratory rate, adjust FIO2, CXR Cardiac: continue to monitor HR/BP Renal: F/U I&O Infectious Disease: check cultures Gastrointestinal: hold feedings Endocrine: monitor blood sugar, check TSH Hematologic: monitor H/H, transfuse if hgb<8.5 Neurologic: keep patient comfortable Affect: PRN ativan Prophylaxis: Protonix, Heparin Time Spent (Minutes): 40 Notes Reviewed: administrative clerk, cardio, renal 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, case workercorrectional counselor/case manager - Objective Last 24 Hour Vital Signs Date Time Temp Pulse Resp B/P (MAP) Pulse Ox O2 Delivery O2 Flow Rate FiO2 10/01/18 09:00 74 33 95/56 (69) 100 10/01/18 09:00 77 36 75 10/01/18 08:49 70 10/01/18 08:00 97 10/01/18 08:00 99.7 174 34 103/70 (81) 100 10/01/18 08:00 75 10/01/18 08:00 Mechanical Ventilator 10/01/18 07:00 140 34 105/68 (80) 100 10/01/18 06:52 170 35 75 10/01/18 06:00 110 29 90/60 (70) 100 10/01/18 05:01 105 20 75 10/01/18 05:00 94 34 101/70 (80) 100 10/01/18 04:54 97 34 75 10/01/18 04:00 Mechanical Ventilator 10/01/18 04:00 75 10/01/18 04:00 88 10/01/18 04:00 99.8 88 35 109/65 (80) 100 10/01/18 03:04 87 38 75 10/01/18 03:00 97 38 111/74 (86) 98 10/01/18 02:20 171 97/63 10/01/18 02:00 108 35 97/63 (74) 100 10/01/18 01:07 95 36 75 10/01/18 01:00 109 37 100/68 (79) 98 10/01/18 00:30 104/60 10/01/18 00:00 99.1 103 37 104/60 (75) 100 10/01/18 00:00 Mechanical Ventilator 10/01/18 00:00 75 10/01/18 00:00 90 09/30/18 23:00 109 39 114/72 (86) 99 09/30/18 22:57 93 38 75 09/30/18 22:00 135 34 119/79 (92) 96 09/30/18 21:12 99 38 75 09/30/18 21:00 75 09/30/18 21:00 87 22 86/58 (67) 95 09/30/18 20:07 156 114/56 09/30/18 20:00 99.3 102 22 114/58 (76) 95 09/30/18 20:00 80 09/30/18 20:00 Mechanical Ventilator 09/30/18 20:00 102 09/30/18 19:12 97 36 75 09/30/18 19:00 102 22 105/62 (76) 95 09/30/18 18:00 104 22 108/60 (76) 95 09/30/18 17:59 100 32 75 09/30/18 17:00 107 22 115/62 (79) 95 09/30/18 16:00 80 09/30/18 16:00 110 09/30/18 16:00 Mechanical Ventilator 09/30/18 16:00 99.1 110 25 120/66 (84) 95 09/30/18 15:03 120 38 75 09/30/18 15:00 108 25 122/65 (84) 95 09/30/18 14:00 110 25 133/70 (91) 95 09/30/18 13:03 117 36 75 09/30/18 13:00 107 25 132/72 (92) 95 09/30/18 12:00 80 09/30/18 12:00 Mechanical Ventilator 09/30/18 12:00 98.9 110 25 98/58 (71) 94 09/30/18 12:00 108 09/30/18 11:00 105 25 105/55 (72) 95 09/30/18 10:53 127 31 75 Status: awake Condition: critical HEENT: atraumatic Lungs: clear Heart: HR/BP stable Abdomen: soft, active bowel sounds, feeding tube Extremities: no C/C/E Critical Care - Subjective ROS Limited/Unobtainable: No Interval Events: sedated FI02: 75 Vent Support Breath Rate: 16 Vent Support Mode: AC Vent Tidal Volume: 600 Sputum Amount: Small PEEP: 5.0 PIP: 33 I&O: Intake and Output 09/30/18 10/01/18 18:59 06:59 Intake Total 861 ml 850 ml Output Total 720 ml 1140 ml Balance 141 ml -290 ml Intake IV Total 861 ml 850 ml Output Urine Total 720 ml 1140 ml # Bowel Movements 3 4 CXR: extensive airspace infiltrate. ET-Tube: 7.5 ET Position: 23 Labs: Laboratory Tests Test 10/01/18 03:50 10/01/18 09:10 White Blood Count 8.8 K/UL (4.8-10.8) Red Blood Count 3.11 M/UL (4.70-6.10) L Hemoglobin 9.6 G/DL (14.2-18.0) L Hematocrit 30.3 % (42.0-52.0) L Mean Corpuscular Volume 97 FL (80-99) Mean Corpuscular Hemoglobin 30.9 PG (27.0-31.0) Mean Corpuscular Hemoglobin Concent 31.8 G/DL (32.0-36.0) L Red Cell Distribution Width 16.6 % (11.6-14.8) H Platelet Count 79 K/UL (150-450) L Mean Platelet Volume 10.5 FL (6.5-10.1) H Neutrophils (%) (Auto) % (45.0-75.0) Lymphocytes (%) (Auto) % (20.0-45.0) Monocytes (%) (Auto) % (1.0-10.0) Eosinophils (%) (Auto) % (0.0-3.0) Basophils (%) (Auto) % (0.0-2.0) Sodium Level 148 MMOL/L (136-145) H Potassium Level 3.2 MMOL/L (3.5-5.1) L Chloride Level 115 MMOL/L (98-107) H Carbon Dioxide Level 22 MMOL/L (21-32) Anion Gap 11 mmol/L (5-15) Blood Urea Nitrogen 19 mg/dL (7-18) H Creatinine 1.5 MG/DL (0.55-1.30) H Estimat Glomerular Filtration Rate 46.8 mL/min (>60) Glucose Level 89 MG/DL (74-106) Calcium Level 6.9 MG/DL (8.5-10.1) L Phosphorus Level 2.7 MG/DL (2.5-4.9) Magnesium Level 1.7 MG/DL (1.8-2.4) L Total Bilirubin 0.9 MG/DL (0.2-1.0) Aspartate Amino Transf (AST/SGOT) 40 U/L (15-37) H Alanine Aminotransferase (ALT/SGPT) 15 U/L (12-78) Alkaline Phosphatase 86 U/L (46-116) Total Protein 5.2 G/DL (6.4-8.2) L Albumin 1.6 G/DL (3.4-5.0) L Globulin 3.6 g/dL Albumin/Globulin Ratio 0.4 (1.0-2.7) L Arterial Blood pH 7.350 (7.350-7.450) Arterial Blood Partial Pressure CO2 31.5 mmHg (35.0-45.0) L Arterial Blood Partial Pressure O2 143.4 mmHg (75.0-100.0) H Arterial Blood HCO3 17.0 mmol/L (22.0-26.0) *L Arterial Blood Oxygen Saturation 98.1 % (95-100) Arterial Blood Base Excess -7.6 (-2-2) L Blaine Test Positive Garret Petty MD Oct 01, 2018 10:30
--- NOTE | 2018-10-01 11:30 | NUR ---
NURSE NOTES: RT at bedside, FIO2 lowered to 50% with O2sat at 97-100%. Oral suctioning and care provided. Pt is resting in stable condition.
--- NOTE | 2018-10-01 11:31 | Diagnostic Imaging Report ---
Indication: Dyspnea Comparison: 09/30/2018 A single view chest radiograph was obtained. Findings: The nasogastric tube is curled within the midesophagus and requires removal. Endotracheal tube is unchanged and the within the trachea just above the candace. Extensive airspace disease again demonstrated without change. IMPRESSION: Nasogastric tube requires repositioning and is curled in the midesophagus
--- NOTE | 2018-10-01 12:10 | NUR ---
NURSE NOTES: Pt is restless, opens eyes to voice/name. ETT 7.[address] at 23cm right lipline, AC 16, TV600, Peep5.0, FIO2 50% with 100%O2sat. monitoring manager displays irregular rhythm with HR fluctuating from 170's-70's. OG tube in place, pt is currently NPO. Steen catheter present draining dark melvin/pink urine. Right Femoral TLC present, infusing D5W [id number] at 75mL/hr. Peripheral IV access on left AC#18G, right hand #20G, and right FA #20G, all saline locks, patent/intact. Bilateral soft wrist restraints present, skin integrity within normal limits at restraint site. Skin is intact, with bilateral SCDs in place. Bed locked, in lowest position, with three side rails up and call light within easy reach. Will continue to monitor pt and follow plan of care per MD orders and protocol.
--- NOTE | 2018-10-01 12:32 | Nephrology Progress Note ---
Assessment/Plan Problem List: (1) ATN (acute tubular necrosis) (2) ARDS (adult respiratory distress syndrome) (3) Acute respiratory failure with hypoxemia Assessment (1) Acute respiratory failure with hypoxemia- On Vent (2) ARDS (adult respiratory distress syndrome) (3) ATN (acute tubular necrosis) (4) Delirium tremens (5) Rapid atrial fibrillation Plan Vent support- Librium RTC Keep BP under control Avoid nephrotoxics monitor renal parameters Albumin boluses k and phos and Mag as needed Subjective ROS Limited/Unobtainable: Yes Objective Objective Last 24 Hour Vital Signs Date Time Temp Pulse Resp B/P (MAP) Pulse Ox O2 Delivery O2 Flow Rate FiO2 10/01/18 10:59 87 37 75 10/01/18 09:00 74 33 95/56 (69) 100 10/01/18 09:00 77 36 75 10/01/18 08:49 70 10/01/18 08:00 97 10/01/18 08:00 99.7 174 34 103/70 (81) 100 10/01/18 08:00 75 10/01/18 08:00 Mechanical Ventilator 10/01/18 07:00 140 34 105/68 (80) 100 10/01/18 06:52 170 35 75 10/01/18 06:00 110 29 90/60 (70) 100 10/01/18 05:01 105 20 75 10/01/18 05:00 94 34 101/70 (80) 100 10/01/18 04:54 97 34 75 10/01/18 04:00 Mechanical Ventilator 10/01/18 04:00 75 10/01/18 04:00 88 10/01/18 04:00 99.8 88 35 109/65 (80) 100 10/01/18 03:04 87 38 75 10/01/18 03:00 97 38 111/74 (86) 98 10/01/18 02:20 171 97/63 10/01/18 02:00 108 35 97/63 (74) 100 10/01/18 01:07 95 36 75 10/01/18 01:00 109 37 100/68 (79) 98 10/01/18 00:30 104/60 10/01/18 00:00 99.1 103 37 104/60 (75) 100 10/01/18 00:00 Mechanical Ventilator 10/01/18 00:00 75 10/01/18 00:00 90 09/30/18 23:00 109 39 114/72 (86) 99 09/30/18 22:57 93 38 75 09/30/18 22:00 135 34 119/79 (92) 96 09/30/18 21:12 99 38 75 09/30/18 21:00 75 09/30/18 21:00 87 22 86/58 (67) 95 09/30/18 20:07 156 114/56 09/30/18 20:00 99.3 102 22 114/58 (76) 95 09/30/18 20:00 80 09/30/18 20:00 Mechanical Ventilator 09/30/18 20:00 102 09/30/18 19:12 97 36 75 09/30/18 19:00 102 22 105/62 (76) 95 09/30/18 18:00 104 22 108/60 (76) 95 09/30/18 17:59 100 32 75 09/30/18 17:00 107 22 115/62 (79) 95 09/30/18 16:00 80 09/30/18 16:00 110 09/30/18 16:00 Mechanical Ventilator 09/30/18 16:00 99.1 110 25 120/66 (84) 95 09/30/18 15:03 120 38 75 09/30/18 15:00 108 25 122/65 (84) 95 09/30/18 14:00 110 25 133/70 (91) 95 09/30/18 13:03 117 36 75 09/30/18 13:00 107 25 132/72 (92) 95 Intake and Output 09/30/18 10/01/18 19:00 07:00 Intake Total 841 ml 870 ml Output Total 670 ml 1170 ml Balance 171 ml -300 ml Intake IV Total 841 ml 870 ml Output Urine Total 670 ml 1170 ml # Bowel Movements 3 4 Laboratory Tests 10/01/18 03:50: White Blood Count 8.8, Red Blood Count 3.11L, Hemoglobin 9.6L, Hematocrit 30.3L , Mean Corpuscular Volume 97, Mean Corpuscular Hemoglobin 30.9, Mean Corpuscular Hemoglobin Concent 31.8L, Red Cell Distribution Width 16.6H, Platelet Count 79L, Mean Platelet Volume 10.5H, Neutrophils (%) (Auto) , Lymphocytes (%) (Auto) , Monocytes (%) (Auto) , Eosinophils (%) (Auto) , Basophils (%) (Auto) , Sodium Level 148H, Potassium Level 3.2L, Chloride Level 115H, Carbon Dioxide Level 22, Anion Gap 11, Blood Urea Nitrogen 19H, Creatinine 1.5H, Estimat Glomerular Filtration Rate 46.8, Glucose Level 89, Calcium Level 6.9L, Phosphorus Level 2.7, Magnesium Level 1.7L, Total Bilirubin 0.9, Aspartate Amino Transf (AST/SGOT) 40H, Alanine Aminotransferase (ALT/SGPT) 15, Alkaline Phosphatase 86, Total Protein 5.2L, Albumin 1.6L, Globulin 3.6, Albumin/Globulin Ratio 0.4L 10/01/18 09:10: Arterial Blood pH 7.350, Arterial Blood Partial Pressure CO2 31.5L, Arterial Blood Partial Pressure O2 143.4H, Arterial Blood HCO3 17.0*L, Arterial Blood Oxygen Saturation 98.1, Arterial Blood Base Excess -7.6L, Blaine Test Positive Height (Feet): 5 Height (Inches): 6.00 Weight (Pounds): 157 General Appearance: agitated EENT: other - vented Cardiovascular: tachycardia Respiratory/Chest: decreased breath sounds Abdomen: distended Kaden Cordova MD Oct 01, 2018 12:32
--- NOTE | 2018-10-01 12:49 | Internal Med Progress Note ---
Subjective Date of Service: Oct 01, 2018 Physician Name Sanford Castellano Attending Physician Benjamin Sterling MD Current Medications Medications (Trade) Dose Ordered Sig/Hoa Route PRN Reason Start Time Stop Time Status Last Admin Dose Admin Acetaminophen (Tylenol) 650 mg Q4H PRN ORAL fever (temp>100.5F) 09/28/18 03:45 10/26/18 19:44 09/29/18 20:45 Cefepime HCl 1 gm/ Dextrose 55 ml @ 110 mls/hr Q24H IVPB 09/29/18 17:00 10/06/18 16:59 09/30/18 18:03 Chlordiazepoxide (Librium) 25 mg Q6HR NG 10/01/18 12:30 10/08/18 12:29 Chlorhexidine Gluconate (Zainab-Hex 2%) 1 applic DAILY@2000 TOPIC 09/29/18 20:00 10/29/18 19:59 09/30/18 19:42 Dextrose (Dextrose 50%) 25 ml Q30M PRN IV Hypoglycemia 09/28/18 01:30 10/26/18 17:59 Dextrose (Dextrose 50%) 50 ml Q30M PRN IV Hypoglycemia 09/28/18 01:30 10/26/18 17:59 Dextrose/ Electrolytes 1,000 ml @ 75 mls/hr [id number] IV 10/01/18 08:15 10/31/18 08:14 10/01/18 09:09 Ipratropium Mascot (Atrovent) 500 mcg Q4H PRN HHN Shortness of Breath 09/28/18 04:00 10/02/18 19:59 09/28/18 23:11 Lorazepam (Ativan 2mg/ml 1ml) 1 mg Q1H PRN IV agitation, cofusion, dt 09/28/18 12:45 10/05/18 12:44 10/01/18 08:30 Metoprolol Tartrate 5 mg/ Dextrose 60 ml @ 130 mls/hr Q6HR PRN IVPB hr greater than 118 09/28/18 09:30 10/28/18 09:29 10/01/18 02:20 Midazolam HCl (Versed 2mg/2ml vial) 1 mg Q1H PRN IVP Agitation 09/28/18 13:00 10/28/18 12:59 09/30/18 20:06 Morphine Sulfate (Morphine Sulfate) 4 mg Q2H PRN IV For Pain (7-10) 09/28/18 02:00 10/03/18 17:59 09/28/18 22:49 Norepinephrine Bitartrate 4 mg/ Dextrose 250 ml @ 0 mls/hr Q24H IV 09/29/18 00:30 10/29/18 00:29 09/30/18 03:01 Ondansetron HCl (Zofran) 4 mg Q6H PRN IVP Nausea & Vomiting 09/28/18 01:45 10/27/18 19:44 Pantoprazole (Protonix) 40 mg EVERY 12 HOURS IVP 09/29/18 21:00 10/29/18 20:59 10/01/18 08:38 Potassium Chloride 100 ml @ 100 mls/hr Q1HR IVPB 10/01/18 09:00 10/01/18 12:59 10/01/18 10:23 Quetiapine Fumarate (SEROquel) 50 mg Q12HR ORAL 09/28/18 21:00 10/27/18 08:59 10/01/18 08:39 Temazepam (Restoril) 15 mg HSPRN PRN ORAL Insomnia 09/28/18 19:45 10/04/18 19:44 Thiamine HCl 100 mg/Dextrose 111 ml @ 220 mls/hr Q24H IVPB 09/28/18 11:00 10/28/18 10:59 10/01/18 10:23 Allergies: Coded Allergies: No Known Allergies (Unverified , 09/06/15) ROS Limited/Unobtainable: Yes Subjective 68 YO M admitted with hematuria and hypotension. Now atrial fibrillation with rapid ventricular rate. Cover for Int Ash-Dr Sterling. ICU. Intubated and sedated Objective Last Vital Signs Date Time Temp Pulse Resp B/P (MAP) Pulse Ox O2 Delivery O2 Flow Rate FiO2 10/01/18 10:59 87 37 75 10/01/18 09:00 95/56 (69) 100 10/01/18 08:00 99.7 10/01/18 08:00 Mechanical Ventilator 09/29/18 00:00 15.0 Laboratory Tests Test 10/01/18 03:50 10/01/18 09:10 White Blood Count 8.8 K/UL (4.8-10.8) Red Blood Count 3.11 M/UL (4.70-6.10) L Hemoglobin 9.6 G/DL (14.2-18.0) L Hematocrit 30.3 % (42.0-52.0) L Mean Corpuscular Volume 97 FL (80-99) Mean Corpuscular Hemoglobin 30.9 PG (27.0-31.0) Mean Corpuscular Hemoglobin Concent 31.8 G/DL (32.0-36.0) L Red Cell Distribution Width 16.6 % (11.6-14.8) H Platelet Count 79 K/UL (150-450) L Mean Platelet Volume 10.5 FL (6.5-10.1) H Neutrophils (%) (Auto) % (45.0-75.0) Lymphocytes (%) (Auto) % (20.0-45.0) Monocytes (%) (Auto) % (1.0-10.0) Eosinophils (%) (Auto) % (0.0-3.0) Basophils (%) (Auto) % (0.0-2.0) Sodium Level 148 MMOL/L (136-145) H Potassium Level 3.2 MMOL/L (3.5-5.1) L Chloride Level 115 MMOL/L (98-107) H Carbon Dioxide Level 22 MMOL/L (21-32) Anion Gap 11 mmol/L (5-15) Blood Urea Nitrogen 19 mg/dL (7-18) H Creatinine 1.5 MG/DL (0.55-1.30) H Estimat Glomerular Filtration Rate 46.8 mL/min (>60) Glucose Level 89 MG/DL (74-106) Calcium Level 6.9 MG/DL (8.5-10.1) L Phosphorus Level 2.7 MG/DL (2.5-4.9) Magnesium Level 1.7 MG/DL (1.8-2.4) L Total Bilirubin 0.9 MG/DL (0.2-1.0) Aspartate Amino Transf (AST/SGOT) 40 U/L (15-37) H Alanine Aminotransferase (ALT/SGPT) 15 U/L (12-78) Alkaline Phosphatase 86 U/L (46-116) Total Protein 5.2 G/DL (6.4-8.2) L Albumin 1.6 G/DL (3.4-5.0) L Globulin 3.6 g/dL Albumin/Globulin Ratio 0.4 (1.0-2.7) L Arterial Blood pH 7.350 (7.350-7.450) Arterial Blood Partial Pressure CO2 31.5 mmHg (35.0-45.0) L Arterial Blood Partial Pressure O2 143.4 mmHg (75.0-100.0) H Arterial Blood HCO3 17.0 mmol/L (22.0-26.0) *L Arterial Blood Oxygen Saturation 98.1 % (95-100) Arterial Blood Base Excess -7.6 (-2-2) L Blaine Test Positive Intake and Output 09/30/18 10/01/18 19:00 07:00 Intake Total 841 ml 870 ml Output Total 670 ml 1170 ml Balance 171 ml -300 ml Intake IV Total 841 ml 870 ml Output Urine Total 670 ml 1170 ml # Bowel Movements 3 4 Objective General Appearance: WD/WN, no apparent distress, alert EENT: PERRL/EOMI, normal ENT inspection, TMs normal Neck: non-tender, normal alignment, supple, normal inspection Cardiovascular: Tachy; irreg/irreg; normal peripheral pulses, normal rate, no gallop/murmur, no JVD Respiratory/Chest: Mech vent; chest wall non-tender, lungs clear, coarse upper breath sounds, no respiratory distress, no accessory muscle use Abdomen: normal bowel sounds, non tender, soft, no organomegaly, no mass Extremities: normal range of motion, non-tender Neurologic: director corporate compliance II-XII grossly normal, no motor/sensory deficts Assessment/Plan Assessment/Plan Assessment/Plan Assessment/Plan Problem List: (1) Severe sepsis ICD Codes: A41.9 - Sepsis, unspecified organism; R65.20 - Severe sepsis without septic shock SNOMED: 83631893 (2) Acute alcoholic intoxication ICD Codes: F10.129 - Alcohol abuse with intoxication, unspecified SNOMED: 57150543 (3) Nephrolithiasis ICD Codes: N20.0 - Calculus of kidney SNOMED: 94105049 (4) Hematuria ICD Codes: R31.9 - Hematuria, unspecified SNOMED: 46047800 5. Atrial fibrillation with rapid ventricular rate 6. Respiratory failure/ARDS Assessment/Plan fernandez cultures iv abx banana bag Librium, Seroquel and Klonipin iv abx, ID evaluation Metoprolol drip per Cardiology ICU status Cont mech vent per pulmonary Abx=Cefepime Sanford Castellano MD Oct 01, 2018 12:49
[2018-10-01] MEDS: chlordiazePOXIDE 25mg Cap NG SCH ×2 (13:22→17:38)
--- NOTE | 2018-10-01 13:30 | NUR ---
NURSE NOTES: Called Dr Leon for Irregular HR >178. Per MD, Start Amio. Orders processed. Will monitor patient closely and follow plan of care
--- NOTE | 2018-10-01 13:40 | NUR ---
*-* ISNURANCE *-* UPDATED CLINICALS FAXED TO: FAXED TO THE [facility] FAX NUMBER [facility] [phone] Work Work Fax
--- NOTE | 2018-10-01 13:51 | Infectious Diseases Prog Note ---
Assessment/Plan Assessment/Plan Assessment: Sepsis/Septic shock- now off pressors -Bcx NTD Probable UTI -u/a wbc 15-20, nit neg, leuk +3; ucx Morganella morganni (R ancef, amp; otherwise S) Low grade fever Leukocytosis, SP Etoh intoxication Acute respiratory failure/ ARDS s/p intubation -CXR Extensive airspace disease again demonstrated without change. Thrombocytopenia- probably in the setting of sepsis and bone marrow suppression 2ry to EtOH Afib w/ RVR KARLA, improving EtOH abuse, nephrolithiasis Plan: -Continue Cefepime #3 (abx d #/7-10) to cover for probable Amp-C Morganella -09/29 SP Ceftriaxone #4 -09/26 SP Zosyn x1 -f.u cx -Monitor CBC/CMP, temperatures =aspiration precautions -ETT/ICU care -f/u sp cx Thank you for this consultation. Will continue to follow along with you. Discussed with radiology dept as none of the CXR has been uploaded to EMR (no image or report) Subjective Allergies: Coded Allergies: No Known Allergies (Unverified , 09/06/15) Subjective afebrile in 36hrs wbcnormal now Bcx NTD fio2 75% off pressors Objective Vital Signs Last 24 Hour Vital Signs Date Time Temp Pulse Resp B/P (MAP) Pulse Ox O2 Delivery O2 Flow Rate FiO2 10/01/18 13:07 112 33 75 10/01/18 10:59 87 37 75 10/01/18 09:00 74 33 95/56 (69) 100 10/01/18 09:00 77 36 75 10/01/18 08:49 70 10/01/18 08:00 97 10/01/18 08:00 99.7 174 34 103/70 (81) 100 10/01/18 08:00 75 10/01/18 08:00 Mechanical Ventilator 10/01/18 07:00 140 34 105/68 (80) 100 10/01/18 06:52 170 35 75 10/01/18 06:00 110 29 90/60 (70) 100 10/01/18 05:01 105 20 75 10/01/18 05:00 94 34 101/70 (80) 100 10/01/18 04:54 97 34 75 10/01/18 04:00 Mechanical Ventilator 10/01/18 04:00 75 10/01/18 04:00 88 10/01/18 04:00 99.8 88 35 109/65 (80) 100 10/01/18 03:04 87 38 75 10/01/18 03:00 97 38 111/74 (86) 98 10/01/18 02:20 171 97/63 10/01/18 02:00 108 35 97/63 (74) 100 10/01/18 01:07 95 36 75 10/01/18 01:00 109 37 100/68 (79) 98 10/01/18 00:30 104/60 10/01/18 00:00 99.1 103 37 104/60 (75) 100 10/01/18 00:00 Mechanical Ventilator 10/01/18 00:00 75 10/01/18 00:00 90 09/30/18 23:00 109 39 114/72 (86) 99 09/30/18 22:57 93 38 75 09/30/18 22:00 135 34 119/79 (92) 96 09/30/18 21:12 99 38 75 09/30/18 21:00 75 09/30/18 21:00 87 22 86/58 (67) 95 09/30/18 20:07 156 114/56 09/30/18 20:00 99.3 102 22 114/58 (76) 95 09/30/18 20:00 80 09/30/18 20:00 Mechanical Ventilator 09/30/18 20:00 102 09/30/18 19:12 97 36 75 09/30/18 19:00 102 22 105/62 (76) 95 09/30/18 18:00 104 22 108/60 (76) 95 09/30/18 17:59 100 32 75 09/30/18 17:00 107 22 115/62 (79) 95 09/30/18 16:00 80 09/30/18 16:00 110 09/30/18 16:00 Mechanical Ventilator 09/30/18 16:00 99.1 110 25 120/66 (84) 95 09/30/18 15:03 120 38 75 09/30/18 15:00 108 25 122/65 (84) 95 09/30/18 14:00 110 25 133/70 (91) 95 Height (Feet): 5 Height (Inches): 6.00 Weight (Pounds): 157 Objective General Appearance: WD/WN, confused Lines, tubes and drains: peripheral HEENT: normocephalic, atraumatic Neck: non-tender, supple Respiratory/Chest: chest wall non-tender, lungs clear Cardiovascular/Chest: normal peripheral pulses Abdomen: normal bowel sounds Laboratory Tests Test 10/01/18 03:50 10/01/18 09:10 White Blood Count 8.8 K/UL (4.8-10.8) Red Blood Count 3.11 M/UL (4.70-6.10) L Hemoglobin 9.6 G/DL (14.2-18.0) L Hematocrit 30.3 % (42.0-52.0) L Mean Corpuscular Volume 97 FL (80-99) Mean Corpuscular Hemoglobin 30.9 PG (27.0-31.0) Mean Corpuscular Hemoglobin Concent 31.8 G/DL (32.0-36.0) L Red Cell Distribution Width 16.6 % (11.6-14.8) H Platelet Count 79 K/UL (150-450) L Mean Platelet Volume 10.5 FL (6.5-10.1) H Neutrophils (%) (Auto) % (45.0-75.0) Lymphocytes (%) (Auto) % (20.0-45.0) Monocytes (%) (Auto) % (1.0-10.0) Eosinophils (%) (Auto) % (0.0-3.0) Basophils (%) (Auto) % (0.0-2.0) Sodium Level 148 MMOL/L (136-145) H Potassium Level 3.2 MMOL/L (3.5-5.1) L Chloride Level 115 MMOL/L (98-107) H Carbon Dioxide Level 22 MMOL/L (21-32) Anion Gap 11 mmol/L (5-15) Blood Urea Nitrogen 19 mg/dL (7-18) H Creatinine 1.5 MG/DL (0.55-1.30) H Estimat Glomerular Filtration Rate 46.8 mL/min (>60) Glucose Level 89 MG/DL (74-106) Calcium Level 6.9 MG/DL (8.5-10.1) L Phosphorus Level 2.7 MG/DL (2.5-4.9) Magnesium Level 1.7 MG/DL (1.8-2.4) L Total Bilirubin 0.9 MG/DL (0.2-1.0) Aspartate Amino Transf (AST/SGOT) 40 U/L (15-37) H Alanine Aminotransferase (ALT/SGPT) 15 U/L (12-78) Alkaline Phosphatase 86 U/L (46-116) Total Protein 5.2 G/DL (6.4-8.2) L Albumin 1.6 G/DL (3.4-5.0) L Globulin 3.6 g/dL Albumin/Globulin Ratio 0.4 (1.0-2.7) L Arterial Blood pH 7.350 (7.350-7.450) Arterial Blood Partial Pressure CO2 31.5 mmHg (35.0-45.0) L Arterial Blood Partial Pressure O2 143.4 mmHg (75.0-100.0) H Arterial Blood HCO3 17.0 mmol/L (22.0-26.0) *L Arterial Blood Oxygen Saturation 98.1 % (95-100) Arterial Blood Base Excess -7.6 (-2-2) L Blaine Test Positive Current Medications Medications (Trade) Dose Ordered Sig/Hoa Route PRN Reason Start Time Stop Time Status Last Admin Dose Admin Acetaminophen (Tylenol) 650 mg Q4H PRN ORAL fever (temp>100.5F) 09/28/18 03:45 10/26/18 19:44 09/29/18 20:45 Amiodarone HCl 900 mg/Dextrose 500 ml @ 0 mls/hr Q24H IV 10/01/18 14:00 10/02/18 13:59 Cefepime HCl 1 gm/ Dextrose 55 ml @ 110 mls/hr Q24H IVPB 09/29/18 17:00 10/06/18 16:59 09/30/18 18:03 Chlordiazepoxide (Librium) 25 mg Q6HR NG 10/01/18 12:30 10/08/18 12:29 10/01/18 13:22 Chlorhexidine Gluconate (Zainab-Hex 2%) 1 applic DAILY@2000 TOPIC 09/29/18 20:00 10/29/18 19:59 09/30/18 19:42 Dextrose (Dextrose 50%) 25 ml Q30M PRN IV Hypoglycemia 09/28/18 01:30 10/26/18 17:59 Dextrose (Dextrose 50%) 50 ml Q30M PRN IV Hypoglycemia 09/28/18 01:30 10/26/18 17:59 Dextrose/ Electrolytes 1,000 ml @ 75 mls/hr [id number] IV 10/01/18 08:15 10/31/18 08:14 10/01/18 09:09 Ipratropium [place] (Atrovent) 500 mcg Q4H PRN HHN Shortness of Breath 09/28/18 04:00 10/02/18 19:59 09/28/18 23:11 Lorazepam (Ativan 2mg/ml 1ml) 1 mg Q1H PRN IV agitation, cofusion, dt 09/28/18 12:45 10/05/18 12:44 10/01/18 08:30 Metoprolol Tartrate 5 mg/ Dextrose 60 ml @ 130 mls/hr Q6HR PRN IVPB hr greater than 118 09/28/18 09:30 10/28/18 09:29 10/01/18 02:20 Midazolam HCl (Versed 2mg/2ml vial) 1 mg Q1H PRN IVP Agitation 09/28/18 13:00 10/28/18 12:59 09/30/18 20:06 Morphine Sulfate (Morphine Sulfate) 4 mg Q2H PRN IV For Pain (7-10) 09/28/18 02:00 10/03/18 17:59 09/28/18 22:49 Norepinephrine Bitartrate 4 mg/ Dextrose 250 ml @ 0 mls/hr Q24H IV 09/29/18 00:30 10/29/18 00:29 09/30/18 03:01 Ondansetron HCl (Zofran) 4 mg Q6H PRN IVP Nausea & Vomiting 09/28/18 01:45 10/27/18 19:44 Pantoprazole (Protonix) 40 mg EVERY 12 HOURS IVP 09/29/18 21:00 10/29/18 20:59 10/01/18 08:38 Quetiapine Fumarate (SEROquel) 50 mg Q12HR ORAL 09/28/18 21:00 10/27/18 08:59 10/01/18 08:39 Temazepam (Restoril) 15 mg HSPRN PRN ORAL Insomnia 09/28/18 19:45 10/04/18 19:44 Thiamine HCl 100 mg/Dextrose 111 ml @ 220 mls/hr Q24H IVPB 09/28/18 11:00 10/28/18 10:59 10/01/18 10:23 Jes Taylor M.D. Oct 01, 2018 13:51
--- NOTE | 2018-10-01 14:02 | NUR ---
MAILING SPECIALISTCHAIN PERSON SI: CYSTITIS . DEHYDRATION . HEMATURIA VS: BP 95/56, P 174, T 99.7, RR 37, SpO2 100 Vent FiO2 75 RBC 3.11, Hgb 9.6, Hct 30.3, HCO3 17.0,Na 148, K 3.2, BUN 19, CR 1.5 IS: AMIODARONE 500ml IV LIBRIUM 25mg NG PROTONIX 40mg D5/ ELECTROLYTES x1L IV SEROQUEL 50mg MIDAZOLAM HCI 1mg IVP LORAZEPAM 1mG IV METOPROLOL 60ml IVPB CEFEPIME 55ml IVPB ICU STATUS
[2018-10-01] MEDS: Amiodarone 900 MG in D5W 500ml 482 ML IV SCH ×2 (14:10→20:12)
--- NOTE | 2018-10-01 15:00 | NUR ---
NURSE NOTES: Pt's heart rate is still fluctuating 120's to 70's, however improved and lower after Amio drip. Oral care provided. Tolerating ventilator settings with O2sat 97-100% at FIO2 of 50%. Will continue to monitor.
--- NOTE | 2018-10-01 16:00 | NUR ---
NURSE NOTES: Pt is restless, opens eyes to voice/name. ETT 7.[address] at 23cm right lipline, AC 16, TV600, Peep5.0, FIO2 75% with 100%O2sat. ekg monitor displays irregular rhythm with HR fluctuating from 170's-70's. OG tube in place, pt is currently NPO. Steen catheter present draining dark melvin/pink urine. Right Femoral TLC present, infusing D5W [id number] at 75mL/hr Amiodarone at 1mg/min. Peripheral IV access on left AC#18G, right hand #20G, and right FA #20G, all saline locks, patent/intact. Bilateral soft wrist restraints present, skin integrity within normal limits at restraint site. Skin is intact, with bilateral SCDs in place. Bed locked, in lowest position, with three side rails up and call light within easy reach. Will continue to monitor pt and follow plan of care per MD orders and protocol.
--- NOTE | 2018-10-01 17:00 | NUR ---
NURSE NOTES: Pt is resting without any acute distress or discomfort noted. Vital signs are stable. Will continue to monitor.
[2018-10-01] MEDS: Cefepime HCl 1 GM in D5W 55 ML IVPB SCH (17:38)
[2018-10-01] MEDS ORDERED: NS 275ml ONE (18:01)
[2018-10-01] MEDS ORDERED: Tubing IV Secondary IV ONE (18:01)
--- NOTE | 2018-10-01 19:53 | NUR ---
NURSE NOTES: Report given to No HE/Sakshi HE. Pt is resting in bed in stable condition. Endorsed plan of care.
--- NOTE | 2018-10-01 19:55 | NUR ---
NURSE NOTES: Report received from Maxx RN. Pt A/Ox1, opens eyes spontaneously and restless. purchase price analyst shows muti-focal atrial tachycardia. Pt is ventilator dependent with 7.[address] @ 23 cm on lip. Ventilator settings: AC16 VT600, FiO2: 50%, PEEP 5. Tolerating ventilator settings well. Showing no signs of acute distress. Pt has an OGT in place, to be used only for meds. Steen catheter present and draining well. Skin is intact. Pt has a LAC 18g, a RFA20g, a RH20g, and a right femoral TLC with [id number] running @ 75 ml/hr. Bilateral restraints present as pt was seen restless and attempting to pull lines. Skin around wrists is intact, no swelling, irritation or breakdown noted. Bed in lowest position, bed alarms placed, call light within reach. Will continue to monitor and with patients plan of care.
[2018-10-01] MEDS: Dyna-Hex 2% Top Sol 2oz TOPIC SCH (20:31)
--- NOTE | 2018-10-01 20:45 | Cardiology Progress Note ---
Assessment/Plan Assessment/Plan tachy ? MAT vs sinus svt hypotension septic shock ards alcohol with drawl syndrome ams etoh intoxication respiratory failure thrombocytopenia has intermittent very rapid run of svt and some wide complex tachy intubated on bryant vent now off pressor ivf cxr appearence of ards still quite abn reviewed personally echo normal lv systolic function monitor mcl 1 lead on tele may be better showing of the atrial activity ib amio started iv abx torp neg treated for pending DT / etoh withdraw signs d/w rn transplant reviewed remains quite ill still with high morteza oxygen but oxygenation adn wbc and bp are all better Subjective ROS Limited/Unobtainable: Yes Subjective intuabeted Objective Last 24 Hour Vital Signs Date Time Temp Pulse Resp B/P (MAP) Pulse Ox O2 Delivery O2 Flow Rate FiO2 10/01/18 19:02 139 34 50 50 10/01/18 19:00 100.4 132 27 108/61 (77) 98 10/01/18 18:00 97 34 88/40 (56) 96 10/01/18 17:01 110 36 50 10/01/18 17:00 114 37 108/89 (95) 98 10/01/18 16:30 99 33 92/58 (69) 98 10/01/18 16:00 50 10/01/18 16:00 Mechanical Ventilator 10/01/18 16:00 99 10/01/18 16:00 99.0 99 34 102/61 (75) 98 10/01/18 15:30 109 34 110/61 (77) 98 10/01/18 15:12 114 34 50 10/01/18 15:00 120 35 91/56 (68) 98 10/01/18 14:30 116 35 97/61 (73) 100 10/01/18 14:00 116 36 99/52 (68) 100 10/01/18 13:07 112 33 55 10/01/18 13:00 125 37 124/98 (107) 100 10/01/18 12:00 99.4 124 36 122/84 (97) 95 10/01/18 12:00 Mechanical Ventilator 10/01/18 12:00 91 10/01/18 12:00 55 10/01/18 11:00 99 37 111/68 (82) 95 10/01/18 10:59 87 37 65 10/01/18 10:00 81 33 87/58 (68) 98 10/01/18 09:20 65 10/01/18 09:00 74 33 95/56 (69) 100 10/01/18 09:00 77 36 75 10/01/18 08:49 70 10/01/18 08:00 97 10/01/18 08:00 99.7 174 34 103/70 (81) 100 10/01/18 08:00 75 10/01/18 08:00 Mechanical Ventilator 10/01/18 07:00 140 34 105/68 (80) 100 10/01/18 06:52 170 35 75 10/01/18 06:00 110 29 90/60 (70) 100 10/01/18 05:01 105 20 75 10/01/18 05:00 94 34 101/70 (80) 100 10/01/18 04:54 97 34 75 10/01/18 04:00 Mechanical Ventilator 10/01/18 04:00 75 10/01/18 04:00 88 10/01/18 04:00 99.8 88 35 109/65 (80) 100 10/01/18 03:04 87 38 75 10/01/18 03:00 97 38 111/74 (86) 98 10/01/18 02:20 171 97/63 10/01/18 02:00 108 35 97/63 (74) 100 10/01/18 01:07 95 36 75 10/01/18 01:00 109 37 100/68 (79) 98 10/01/18 00:30 104/60 10/01/18 00:00 99.1 103 37 104/60 (75) 100 10/01/18 00:00 Mechanical Ventilator 10/01/18 00:00 75 10/01/18 00:00 90 09/30/18 23:00 109 39 114/72 (86) 99 09/30/18 22:57 93 38 75 09/30/18 22:00 135 34 119/79 (92) 96 09/30/18 21:12 99 38 75 09/30/18 21:00 75 09/30/18 21:00 87 22 86/58 (67) 95 General Appearance: no apparent distress, on vent Neck: supple Cardiovascular: normal rate, tachycardia, irregularly irregular Respiratory/Chest: crackles/rales Abdomen: normal bowel sounds, non tender, soft Extremities: no swelling Intake and Output 09/30/18 10/01/18 19:00 07:00 Intake Total 841 ml 870 ml Output Total 670 ml 1170 ml Balance 171 ml -300 ml Intake IV Total 841 ml 870 ml Output Urine Total 670 ml 1170 ml # Bowel Movements 3 4 Laboratory Tests Test 10/01/18 03:50 10/01/18 09:10 White Blood Count 8.8 K/UL (4.8-10.8) Red Blood Count 3.11 M/UL (4.70-6.10) L Hemoglobin 9.6 G/DL (14.2-18.0) L Hematocrit 30.3 % (42.0-52.0) L Mean Corpuscular Volume 97 FL (80-99) Mean Corpuscular Hemoglobin 30.9 PG (27.0-31.0) Mean Corpuscular Hemoglobin Concent 31.8 G/DL (32.0-36.0) L Red Cell Distribution Width 16.6 % (11.6-14.8) H Platelet Count 79 K/UL (150-450) L Mean Platelet Volume 10.5 FL (6.5-10.1) H Neutrophils (%) (Auto) % (45.0-75.0) Lymphocytes (%) (Auto) % (20.0-45.0) Monocytes (%) (Auto) % (1.0-10.0) Eosinophils (%) (Auto) % (0.0-3.0) Basophils (%) (Auto) % (0.0-2.0) Sodium Level 148 MMOL/L (136-145) H Potassium Level 3.2 MMOL/L (3.5-5.1) L Chloride Level 115 MMOL/L (98-107) H Carbon Dioxide Level 22 MMOL/L (21-32) Anion Gap 11 mmol/L (5-15) Blood Urea Nitrogen 19 mg/dL (7-18) H Creatinine 1.5 MG/DL (0.55-1.30) H Estimat Glomerular Filtration Rate 46.8 mL/min (>60) Glucose Level 89 MG/DL (74-106) Calcium Level 6.9 MG/DL (8.5-10.1) L Phosphorus Level 2.7 MG/DL (2.5-4.9) Magnesium Level 1.7 MG/DL (1.8-2.4) L Total Bilirubin 0.9 MG/DL (0.2-1.0) Aspartate Amino Transf (AST/SGOT) 40 U/L (15-37) H Alanine Aminotransferase (ALT/SGPT) 15 U/L (12-78) Alkaline Phosphatase 86 U/L (46-116) Total Protein 5.2 G/DL (6.4-8.2) L Albumin 1.6 G/DL (3.4-5.0) L Globulin 3.6 g/dL Albumin/Globulin Ratio 0.4 (1.0-2.7) L Arterial Blood pH 7.350 (7.350-7.450) Arterial Blood Partial Pressure CO2 31.5 mmHg (35.0-45.0) L Arterial Blood Partial Pressure O2 143.4 mmHg (75.0-100.0) H Arterial Blood HCO3 17.0 mmol/L (22.0-26.0) *L Arterial Blood Oxygen Saturation 98.1 % (95-100) Arterial Blood Base Excess -7.6 (-2-2) L Blaine Test Positive Mumtaz Leon MD Oct 01, 2018 20:45
--- NOTE | 2018-10-01 22:00 | NUR ---
NURSE NOTES: OGT removed as it was found to be coiled in esophagus. New NGT inserted in R nare. KUB obtained and confirmation received of proper placement.
[2018-10-02] VITALS (31 sets, daily range): BP systolic 83–130; BP diastolic 48–74
--- NOTE | 2018-10-02 | NUR ---
NURSE NOTES: Pt repositioned. VSS, showing no signs of distress. Will continue to monitor.
[2018-10-02] MEDS: chlordiazePOXIDE 25mg Cap NG SCH ×5 (00:09→23:35)
--- NOTE | 2018-10-02 02:00 | NUR ---
NURSE NOTES: Pt repositioned and now resting comfortably, showing no signs of distress. VSS. Will continue to monitor.
--- NOTE | 2018-10-02 04:00 | NUR ---
NURSE NOTES: Pt cleaned and repositioned. No BM noted. VSS. Showing no signs of distress. Will continue to monitor
[2018-10-02 05:20] LABS: BASOPHILS % (AUTO) 0.8 % (0.0-2.0); EOSINOPHILS % (AUTO) 5.1 % (0.0-3.0); HEMATOCRIT 28.9 % (42.0-52.0); HEMOGLOBIN 9.3 G/DL (14.2-18.0); LYMPHOCYTES % (AUTO) 7.1 % (20.0-45.0); MEAN CORPUSCULAR VOLUME 97 FL (80-99); MONOCYTES % (AUTO) 7.9 % (1.0-10.0); NEUTROPHILS % (AUTO) 79.1 % (45.0-75.0); PLATELET COUNT 103 K/UL (150-450); RED BLOOD COUNT 2.99 M/UL (4.70-6.10); RED CELL DISTRIBUTION WIDTH 16.2 % (11.6-14.8); WHITE BLOOD COUNT 10.5 K/UL (4.8-10.8)
[2018-10-02 05:59] LABS: ALANINE AMINOTRANSFERASE 10 U/L (12-78); ALBUMIN 1.5 G/DL (3.4-5.0); ALBUMIN/GLOBULIN RATIO 0.4 (1.0-2.7); ALKALINE PHOSPHATASE 83 U/L (46-116); ANION GAP 13 mmol/L (5-15); ASPARTATE AMINO TRANSFERASE 26 U/L (15-37); BILIRUBIN,TOTAL 0.9 MG/DL (0.2-1.0); BLOOD UREA NITROGEN 19 mg/dL (7-18); CALCIUM 7.2 MG/DL (8.5-10.1); CARBON DIOXIDE 19 MMOL/L (21-32); CHLORIDE 110 MMOL/L (98-107); CREATININE 1.3 MG/DL (0.55-1.30); POTASSIUM 3.3 MMOL/L (3.5-5.1); SODIUM 142 MMOL/L (136-145)
--- NOTE | 2018-10-02 06:48 | NUR ---
RESPIRATORY NOTE: Received pt orally intubated with ETT 7.5 @23 cm lips line, secured by anchor fast, with vent settings: AC 16-600ml-40%FiO2- peep 5. Rob diminished breath sounds heard upon auscultation, sxn moderate amount of thin frothy yellow gibbs secretions without incidents. Pt is agitated, tachy cardia HR 122 bpm, tachypneic RR 25 bpm, saturates at 96%. Pt is not in distress at this time. Bite block in place to prevent bitting, alarms are on and audible, vent is plugged into the red outlet, ambu bag is at bedside. Will continue to monitor pt.
--- NOTE | 2018-10-02 07:30 | NUR ---
HAND-OFF: Report given to YING Caal.
--- NOTE | 2018-10-02 07:32 | NUR ---
NURSE NOTES: RECEIVED REPORT FROM JONATHON . PT RESTING IN BED. ON ETT TO VENT AC16/TV600/FIO2 50%/PEEP 5, SATURATION 99% NOTED, OGT INTACT AND PATENT, NPO. ABDOMEN SOFT, F/C INTACT AND PATENT, KRISTINE COLOR URINE OUTED, TLC TO RIGHT FEMORAL, INTACT AND PATENT, PERIPHERAL LINE TO LEFT AC 18 G, RIGHT HAND AND RIGHT FOREARM 20G PUFFY, ONGOING D5W 1/2NS W/ KCL 20MEQ AT 75ML/HR, BILATERAL SOFT RESTRAINTS FOR SAFETY, HOB 30 DEGREE STATUS, BED IN LOW POSITION AND CALL LIGHT IN REACH, WILL CONTINUE TO MONITOR.
--- NOTE | 2018-10-02 08:54 | NUR ---
RADIOLOGY DEPT., CHEST X-RAY DONE.-P.DYE
--- NOTE | 2018-10-02 09:16 | NUR ---
IRONERCARBURETOR REPAIRER SI: CYSTITIS . DEHYDRATION . HEMATURIA VS: BP 104/57, P 122, T 99.4, RR 28, SpO2 96 Vent AC 16, TV 600, PEEP 5.0, FiO2 75 RBC 2.99, Hgb 9.3, Hct 28.9, HCO3 19.0,Na 148, K 3.3, BUN 19 IS: AMIODARONE 500ml IV LIBRIUM 25mg NG D5/ ELECTROLYTES x1L IV PROTONIX 40mg IVP SEROQUEL 50mg CEFEPIME 55ml IVPB ICU STATUS
--- NOTE | 2018-10-02 09:24 | NUR ---
RESPIRATORY NOTE: Pt was agitated, didn't pass weaning criteria. Place pt on CPAP PS 10, coached pt how to do deep breathing, but pt still have shallow fast breathing, LTKY=058, NIF -28, tachypneic spont. RR 42bpm, spont. Vt 341ml, Vc 485ml. Heart rate is unstable. Placed pt back on AC mode, pt is calm down, no resp distress. Will continue to monitor pt.
[2018-10-02] MEDS: Pantoprazole Inj IVP SCH ×2 (09:34→21:03)
[2018-10-02] MEDS: D5W w/KCl 20mEq 1,000 ML IV SCH ×2 (09:35→23:36)
[2018-10-02] MEDS: LORazepam Inj 2mg/ml 1ml IV PRN (09:41)
[2018-10-02] MEDS: Amiodarone 900 MG in D5W 500ml 482 ML IV SCH (10:16)
--- NOTE | 2018-10-02 10:30 | NUR ---
Social Service Note Patient is orally intubated. Unable to obtain prior history. Message left for patient's son Deniz Randhawa [phone]. Awaiting return call. Patient is a full code.
--- NOTE | 2018-10-02 10:51 | Pulmonolgy Critical Care Note ---
Critical Care - Asmt/Plan Problems: (1) Acute respiratory failure with hypoxemia (2) ARDS (adult respiratory distress syndrome) (3) ATN (acute tubular necrosis) (4) Delirium tremens (5) Rapid atrial fibrillation Respiratory: monitor respiratory rate, adjust FIO2, CXR Cardiac: continue to monitor HR/BP Renal: F/U I&O, keep IV fluid Infectious Disease: check cultures Gastrointestinal: continue feedings/current rate Endocrine: monitor blood sugar Hematologic: monitor H/H, transfuse if hgb<8.5 Neurologic: PRN Ativan, keep patient comfortable Affect: PRN ativan Prophylaxis: Heparin Disposition: keep in ICU Notes Reviewed: cardio, renal 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, consultants, patient case managermanager business information - Objective Last 24 Hour Vital Signs Date Time Temp Pulse Resp B/P (MAP) Pulse Ox O2 Delivery O2 Flow Rate FiO2 10/02/18 09:24 109 29 40 40 10/02/18 07:00 118 28 122/63 (82) 96 10/02/18 06:48 122 25 40 50 10/02/18 06:30 118 28 122/74 (90) 96 10/02/18 06:00 112 28 110/64 (79) 96 10/02/18 05:30 110 28 106/65 (79) 96 10/02/18 05:00 103 28 116/73 (87) 96 10/02/18 04:54 108 26 40 50 10/02/18 04:30 99 28 106/66 (79) 97 10/02/18 04:00 106 10/02/18 04:00 99 15 104/57 (73) 95 10/02/18 04:00 50 10/02/18 04:00 Mechanical Ventilator 10/02/18 03:30 100 28 106/64 (78) 95 10/02/18 03:29 92 26 40 50 10/02/18 03:00 99.4 100 15 108/68 (81) 99 10/02/18 02:30 96 25 89/55 (66) 100 10/02/18 02:00 97 17 100/58 (72) 98 10/02/18 01:30 95 17 84/55 (65) 98 10/02/18 01:00 96 17 92/51 (65) 98 10/02/18 00:43 106 24 50 50 10/02/18 00:30 99.0 98 19 93/61 (72) 99 10/02/18 00:00 Mechanical Ventilator 10/02/18 00:00 110 10/02/18 00:00 50 10/02/18 00:00 101 19 96/61 (73) 99 10/01/18 23:30 106 19 104/64 (77) 99 10/01/18 23:00 108 19 98/57 (71) 99 10/01/18 22:49 98.5 10/01/18 22:43 124 31 50 50 10/01/18 22:30 116 29 96/55 (69) 98 10/01/18 22:00 122 29 110/59 (76) 99 10/01/18 21:30 132 28 105/88 (94) 99 10/01/18 21:10 111 28 50 50 10/01/18 21:00 98.5 131 28 101/57 (72) 98 10/01/18 20:30 119 30 115/72 (86) 100 10/01/18 20:00 100.3 120 27 108/61 (77) 98 10/01/18 20:00 50 10/01/18 20:00 99 10/01/18 20:00 Mechanical Ventilator 10/01/18 19:30 120 32 98/57 (71) 100 10/01/18 19:02 139 34 50 50 10/01/18 19:00 100.4 132 27 108/61 (77) 98 10/01/18 18:00 97 34 88/40 (56) 96 10/01/18 17:01 110 36 50 10/01/18 17:00 114 37 108/89 (95) 98 10/01/18 16:30 99 33 92/58 (69) 98 10/01/18 16:00 50 10/01/18 16:00 Mechanical Ventilator 10/01/18 16:00 99 10/01/18 16:00 99.0 99 34 102/61 (75) 98 10/01/18 15:30 109 34 110/61 (77) 98 10/01/18 15:12 114 34 50 10/01/18 15:00 120 35 91/56 (68) 98 10/01/18 14:30 116 35 97/61 (73) 100 10/01/18 14:00 116 36 99/52 (68) 100 10/01/18 13:07 112 33 55 10/01/18 13:00 125 37 124/98 (107) 100 10/01/18 12:00 99.4 124 36 122/84 (97) 95 10/01/18 12:00 Mechanical Ventilator 10/01/18 12:00 91 10/01/18 12:00 55 10/01/18 11:00 99 37 111/68 (82) 95 10/01/18 10:59 87 37 65 Status: sedated Condition: critical Lungs: clear Heart: HR/BP unstable, regular Abdomen: non-tender, feeding tube Extremities: edema Critical Care - Subjective ROS Limited/Unobtainable: Yes Condition: critical EKG Rhythm: Sinus Rhythm FI02: 40 Vent Support Breath Rate: 16 Vent Support Mode: AC Vent Tidal Volume: 600 Sputum Amount: Small PEEP: 5.0 PIP: 37 I&O: Intake and Output 10/01/18 10/02/18 18:59 06:59 Intake Total 1553.32 ml 1133.36 ml Output Total 1090 ml 780 ml Balance 463.32 ml 353.36 ml Intake IV Total 1553.32 ml 1133.36 ml Output Urine Total 1090 ml 780 ml CXR: no change ET-Tube: 7.5 ET Position: 23 Labs: Laboratory Tests Test 10/02/18 04:30 10/02/18 08:10 White Blood Count 10.5 K/UL (4.8-10.8) Red Blood Count 2.99 M/UL (4.70-6.10) L Hemoglobin 9.3 G/DL (14.2-18.0) L Hematocrit 28.9 % (42.0-52.0) L Mean Corpuscular Volume 97 FL (80-99) Mean Corpuscular Hemoglobin 31.2 PG (27.0-31.0) H Mean Corpuscular Hemoglobin Concent 32.3 G/DL (32.0-36.0) Red Cell Distribution Width 16.2 % (11.6-14.8) H Platelet Count 103 K/UL (150-450) L Mean Platelet Volume 11.4 FL (6.5-10.1) H Neutrophils (%) (Auto) 79.1 % (45.0-75.0) H Lymphocytes (%) (Auto) 7.1 % (20.0-45.0) L Monocytes (%) (Auto) 7.9 % (1.0-10.0) Eosinophils (%) (Auto) 5.1 % (0.0-3.0) H Basophils (%) (Auto) 0.8 % (0.0-2.0) Sodium Level 142 MMOL/L (136-145) Potassium Level 3.3 MMOL/L (3.5-5.1) L Chloride Level 110 MMOL/L (98-107) H Carbon Dioxide Level 19 MMOL/L (21-32) L Anion Gap 13 mmol/L (5-15) Blood Urea Nitrogen 19 mg/dL (7-18) H Creatinine 1.3 MG/DL (0.55-1.30) Estimat Glomerular Filtration Rate 55.2 mL/min (>60) Glucose Level 96 MG/DL (74-106) Uric Acid 4.1 MG/DL (2.6-7.2) Calcium Level 7.2 MG/DL (8.5-10.1) L Phosphorus Level 2.0 MG/DL (2.5-4.9) L Magnesium Level 1.5 MG/DL (1.8-2.4) L Total Bilirubin 0.9 MG/DL (0.2-1.0) Aspartate Amino Transf (AST/SGOT) 26 U/L (15-37) Alanine Aminotransferase (ALT/SGPT) 10 U/L (12-78) L Alkaline Phosphatase 83 U/L (46-116) Troponin I 0.000 ng/mL (0.000-0.056) C-Reactive Protein, Quantitative 24.5 mg/dL (0.00-0.90) H Pro-B-Type Natriuretic Peptide 5888 pg/mL (0-125) H Total Protein 5.2 G/DL (6.4-8.2) L Albumin 1.5 G/DL (3.4-5.0) L Globulin 3.7 g/dL Albumin/Globulin Ratio 0.4 (1.0-2.7) L Arterial Blood pH 7.341 (7.350-7.450) Arterial Blood Partial Pressure CO2 35.9 mmHg (35.0-45.0) Arterial Blood Partial Pressure O2 86.5 mmHg (75.0-100.0) Arterial Blood HCO3 19.0 mmol/L (22.0-26.0) L Arterial Blood Oxygen Saturation 96.1 % (95-100) Arterial Blood Base Excess -6.1 (-2-2) L [place] Test Positive Garret Petty MD Oct 02, 2018 10:51
--- NOTE | 2018-10-02 10:55 | Infectious Diseases Prog Note ---
Assessment/Plan Assessment/Plan Assessment: Sepsis/Septic shock- now off pressors -Bcx Neg Probable UTI -u/a wbc 15-20, nit neg, leuk +3; ucx Morganella morganni (R ancef, amp; otherwise S) Low grade fever Leukocytosis, SP Etoh intoxication- now ETOH withdrawal w/ DT Acute respiratory failure/ ARDS s/p intubation -CXR Extensive airspace disease again demonstrated without change. Thrombocytopenia- probably in the setting of sepsis and bone marrow suppression 2ry to EtOH Afib w/ RVR KARLA, improving EtOH abuse, nephrolithiasis Plan: -Continue Cefepime #4 (abx d #01/14) to cover for probable Amp-C Morganella -09/29 SP Ceftriaxone #4 -09/26 SP Zosyn x1 -f.u cx -Monitor CBC/CMP, temperatures =aspiration precautions -ETT/ICU care -f/u sp cx Thank you for this consultation. Will continue to follow along with you. Discussed with radiology dept as none of the CXR has been uploaded to EMR (no image or report) Subjective Allergies: Coded Allergies: No Known Allergies (Unverified , 09/06/15) Subjective tm 100.6 no leukocytosis Bcx Neg fio2 down to 40% off pressors Objective Vital Signs Last 24 Hour Vital Signs Date Time Temp Pulse Resp B/P (MAP) Pulse Ox O2 Delivery O2 Flow Rate FiO2 10/02/18 09:24 109 29 40 40 10/02/18 07:00 118 28 122/63 (82) 96 10/02/18 06:48 122 25 40 50 10/02/18 06:30 118 28 122/74 (90) 96 10/02/18 06:00 112 28 110/64 (79) 96 10/02/18 05:30 110 28 106/65 (79) 96 10/02/18 05:00 103 28 116/73 (87) 96 10/02/18 04:54 108 26 40 50 10/02/18 04:30 99 28 106/66 (79) 97 10/02/18 04:00 106 10/02/18 04:00 99 15 104/57 (73) 95 10/02/18 04:00 50 10/02/18 04:00 Mechanical Ventilator 10/02/18 03:30 100 28 106/64 (78) 95 10/02/18 03:29 92 26 40 50 3/28/19 03:00 99.4 100 15 108/68 (81) 99 10/02/18 02:30 96 25 89/55 (66) 100 10/02/18 02:00 97 17 100/58 (72) 98 10/02/18 01:30 95 17 84/55 (65) 98 10/02/18 01:00 96 17 92/51 (65) 98 10/02/18 00:43 106 24 50 50 10/02/18 00:30 99.0 98 19 93/61 (72) 99 10/02/18 00:00 Mechanical Ventilator 10/02/18 00:00 110 10/02/18 00:00 50 10/02/18 00:00 101 19 96/61 (73) 99 10/01/18 23:30 106 19 104/64 (77) 99 10/01/18 23:00 108 19 98/57 (71) 99 10/01/18 22:49 98.5 10/01/18 22:43 124 31 50 50 10/01/18 22:30 116 29 96/55 (69) 98 10/01/18 22:00 122 29 110/59 (76) 99 10/01/18 21:30 132 28 105/88 (94) 99 10/01/18 21:10 111 28 50 50 10/01/18 21:00 98.5 131 28 101/57 (72) 98 10/01/18 20:30 119 30 115/72 (86) 100 10/01/18 20:00 100.3 120 27 108/61 (77) 98 10/01/18 20:00 50 10/01/18 20:00 99 10/01/18 20:00 Mechanical Ventilator 10/01/18 19:30 120 32 98/57 (71) 100 10/01/18 19:02 139 34 50 50 10/01/18 19:00 100.4 132 27 108/61 (77) 98 10/01/18 18:00 97 34 88/40 (56) 96 10/01/18 17:01 110 36 50 10/01/18 17:00 114 37 108/89 (95) 98 10/01/18 16:30 99 33 92/58 (69) 98 10/01/18 16:00 50 10/01/18 16:00 Mechanical Ventilator 10/01/18 16:00 99 10/01/18 16:00 99.0 99 34 102/61 (75) 98 10/01/18 15:30 109 34 110/61 (77) 98 10/01/18 15:12 114 34 50 10/01/18 15:00 120 35 91/56 (68) 98 10/01/18 14:30 116 35 97/61 (73) 100 10/01/18 14:00 116 36 99/52 (68) 100 10/01/18 13:07 112 33 55 10/01/18 13:00 125 37 124/98 (107) 100 10/01/18 12:00 99.4 124 36 122/84 (97) 95 10/01/18 12:00 Mechanical Ventilator 10/01/18 12:00 91 10/01/18 12:00 55 10/01/18 11:00 99 37 111/68 (82) 95 10/01/18 10:59 87 37 65 Height (Feet): 5 Height (Inches): 6.00 Weight (Pounds): 157 Objective General Appearance: WD/WN, confused Lines, tubes and drains: peripheral HEENT: normocephalic, atraumatic Neck: non-tender, supple Respiratory/Chest: chest wall non-tender, lungs clear Cardiovascular/Chest: normal peripheral pulses Abdomen: normal bowel sounds Laboratory Tests Test 10/02/18 04:30 10/02/18 08:10 White Blood Count 10.5 K/UL (4.8-10.8) Red Blood Count 2.99 M/UL (4.70-6.10) L Hemoglobin 9.3 G/DL (14.2-18.0) L Hematocrit 28.9 % (42.0-52.0) L Mean Corpuscular Volume 97 FL (80-99) Mean Corpuscular Hemoglobin 31.2 PG (27.0-31.0) H Mean Corpuscular Hemoglobin Concent 32.3 G/DL (32.0-36.0) Red Cell Distribution Width 16.2 % (11.6-14.8) H Platelet Count 103 K/UL (150-450) L Mean Platelet Volume 11.4 FL (6.5-10.1) H Neutrophils (%) (Auto) 79.1 % (45.0-75.0) H Lymphocytes (%) (Auto) 7.1 % (20.0-45.0) L Monocytes (%) (Auto) 7.9 % (1.0-10.0) Eosinophils (%) (Auto) 5.1 % (0.0-3.0) H Basophils (%) (Auto) 0.8 % (0.0-2.0) Sodium Level 142 MMOL/L (136-145) Potassium Level 3.3 MMOL/L (3.5-5.1) L Chloride Level 110 MMOL/L (98-107) H Carbon Dioxide Level 19 MMOL/L (21-32) L Anion Gap 13 mmol/L (5-15) Blood Urea Nitrogen 19 mg/dL (7-18) H Creatinine 1.3 MG/DL (0.55-1.30) Estimat Glomerular Filtration Rate 55.2 mL/min (>60) Glucose Level 96 MG/DL (74-106) Uric Acid 4.1 MG/DL (2.6-7.2) Calcium Level 7.2 MG/DL (8.5-10.1) L Phosphorus Level 2.0 MG/DL (2.5-4.9) L Magnesium Level 1.5 MG/DL (1.8-2.4) L Total Bilirubin 0.9 MG/DL (0.2-1.0) Aspartate Amino Transf (AST/SGOT) 26 U/L (15-37) Alanine Aminotransferase (ALT/SGPT) 10 U/L (12-78) L Alkaline Phosphatase 83 U/L (46-116) Troponin I 0.000 ng/mL (0.000-0.056) C-Reactive Protein, Quantitative 24.5 mg/dL (0.00-0.90) H Pro-B-Type Natriuretic Peptide 5888 pg/mL (0-125) H Total Protein 5.2 G/DL (6.4-8.2) L Albumin 1.5 G/DL (3.4-5.0) L Globulin 3.7 g/dL Albumin/Globulin Ratio 0.4 (1.0-2.7) L Arterial Blood pH 7.341 (7.350-7.450) Arterial Blood Partial Pressure CO2 35.9 mmHg (35.0-45.0) Arterial Blood Partial Pressure O2 86.5 mmHg (75.0-100.0) Arterial Blood HCO3 19.0 mmol/L (22.0-26.0) L Arterial Blood Oxygen Saturation 96.1 % (95-100) Arterial Blood Base Excess -6.1 (-2-2) L Blaine Test Positive Current Medications Medications (Trade) Dose Ordered Sig/Hoa Route PRN Reason Start Time Stop Time Status Last Admin Dose Admin Acetaminophen (Tylenol) 650 mg Q4H PRN ORAL fever (temp>100.5F) 09/28/18 03:45 10/26/18 19:44 10/01/18 22:19 Amiodarone HCl 900 mg/Dextrose 500 ml @ 0 mls/hr Q24H IV 10/01/18 14:00 10/02/18 13:59 10/02/18 10:16 Cefepime HCl 1 gm/ Dextrose 55 ml @ 110 mls/hr Q24H IVPB 09/29/18 17:00 10/06/18 16:59 10/01/18 17:38 Chlordiazepoxide (Librium) 25 mg Q6HR NG 10/01/18 12:30 10/08/18 12:29 10/02/18 05:08 Chlorhexidine Gluconate (Zainab-Hex 2%) 1 applic DAILY@2000 TOPIC 09/29/18 20:00 10/29/18 19:59 10/01/18 20:31 Dextrose (Dextrose 50%) 25 ml Q30M PRN IV Hypoglycemia 09/28/18 01:30 10/26/18 17:59 Dextrose (Dextrose 50%) 50 ml Q30M PRN IV Hypoglycemia 09/28/18 01:30 10/26/18 17:59 Dextrose/ Electrolytes 1,000 ml @ 75 mls/hr [id number] IV 10/01/18 08:15 10/31/18 08:14 10/02/18 09:35 Ipratropium [place] (Atrovent) 500 mcg Q4H PRN HHN Shortness of Breath 09/28/18 04:00 10/02/18 19:59 09/28/18 23:11 Lorazepam (Ativan 2mg/ml 1ml) 1 mg Q1H PRN IV agitation, cofusion, dt 09/28/18 12:45 10/05/18 12:44 10/02/18 09:41 Metoprolol Tartrate 5 mg/ Dextrose 60 ml @ 130 mls/hr Q6HR PRN IVPB hr greater than 118 09/28/18 09:30 10/28/18 09:29 10/01/18 02:20 Midazolam HCl (Versed 2mg/2ml vial) 1 mg Q1H PRN IVP Agitation 09/28/18 13:00 10/28/18 12:59 09/30/18 20:06 Morphine Sulfate (Morphine Sulfate) 4 mg Q2H PRN IV For Pain (7-10) 09/28/18 02:00 10/03/18 17:59 09/28/18 22:49 Norepinephrine Bitartrate 4 mg/ Dextrose 250 ml @ 0 mls/hr Q24H IV 09/29/18 00:30 10/29/18 00:29 09/30/18 03:01 Ondansetron HCl (Zofran) 4 mg Q6H PRN IVP Nausea & Vomiting 09/28/18 01:45 10/27/18 19:44 Pantoprazole (Protonix) 40 mg EVERY 12 HOURS IVP 09/29/18 21:00 10/29/18 20:59 10/02/18 09:34 Potassium Phosphate 30 mm/ Sodium Chloride 285 ml @ 47.5 mls/hr ONCE ONCE IV 10/02/18 11:00 10/02/18 16:59 Quetiapine Fumarate (SEROquel) 50 mg Q12HR ORAL 09/28/18 21:00 10/27/18 08:59 10/02/18 09:34 Temazepam (Restoril) 15 mg HSPRN PRN ORAL Insomnia 09/28/18 19:45 10/04/18 19:44 Thiamine HCl 100 mg/Dextrose 111 ml @ 220 mls/hr Q24H IVPB 09/28/18 11:00 10/28/18 10:59 10/01/18 10:23 Jes Taylor M.D. Oct 02, 2018 10:55
[2018-10-02] MEDS ORDERED: Potassium Phosphate 30 MM in NS 275 ML IV ONE (11:00)
--- NOTE | 2018-10-02 11:24 | Diagnostic Imaging Report ---
Indication: NG tube Comparison: None Single view of the abdomen obtained Findings: There is an NG tube curled within the stomach. IMPRESSION: NG tube curled in the stomach in good position
--- NOTE | 2018-10-02 11:29 | NUR ---
RD ASSESSMENT & RECOMMENDATIONS SEE CARE ACTIVITY FOR COMPLETE ASSESSMENT DAILY ESTIMATED NEEDS: Needs based on Critcal care 70kg 22-28 kcals/kg 3569-3208 total kcals 1.2-2 g protein/kg 84-140 g total protein 25-30 mL/kg 3957-4415 total fluid mLs NUTRITION DIAGNOSIS: 1) Swallowing difficulty r/t respiratory status as evidenced by s/p oral intubation, OGT in place, NPO at this time. 2) Altered nutrition related lab values r/t clinical status as evidenced by low pH , elev WBC (22- wnl), elev Na (147- wnl), Low K (3.3), low Mg (1.5), elev BG (216- wnl), elev phos (5.4-> 2.0), elev BNP (5888), and elev serum alcohol on adm. CURRENT DIET: NPO ENTERAL NUTRITION RECOMMENDATIONS: Osmolite 1.5 @50ml/hr x24 hrs + Prosource 1 pack qdaily to provide 1200ml, 1800 kcal, 75g + 11g pro, 914ml free H2O - As medically able, start Osmolite 1. @20ml/hr for 6 hrs. Advance as tolerated 10ml/hr q4-6 hrs to goal. - Flush per MD. HOB over 30 degrees --- If pt remains hemodynamically UNstable, rec trophic feeds only of Osmolite 1.5 @5-10ml/hr to maintain gut integrity. ADDITIONAL RECOMMENDATIONS: 1) Monitor for hemodynamic stability and ability to feeds 2) A1C for eval (5.1) 3) Continue w/ thaimine, banana bag 4) Monitor phos, lytes and need for renal TF 5) Calibrated bed scale wts
[2018-10-02] MEDS: Thiamine HCl 100 MG in D5W 110 ML IVPB SCH (11:56)
--- NOTE | 2018-10-02 12:00 | NUR ---
NURSE NOTES: Pt repositioned and now resting comfortably, showing no signs of distress. VSS. Will continue to monitor.
--- NOTE | 2018-10-02 12:18 | NUR ---
*-* ISNURANCE *-* UPDATED CLINICALS FAXED TO: FAXED TO THE [facility] FAX NUMBER [facility] [phone] Work Work Fax
--- NOTE | 2018-10-02 13:04 | Diagnostic Imaging Report ---
Indication: Dyspnea Comparison: 10/01/2018 A single view chest radiograph was obtained. Findings: Extensive mixed interstitial alveolar opacities noted throughout the lungs. Heart size is stable. The NG tube was repositioned and is now in good position. Heart size is stable. Endotracheal tube position is stable. IMPRESSION: Extensive pulmonary opacities marginal with improvement since yesterday.
--- NOTE | 2018-10-02 13:17 | Nephrology Progress Note ---
Assessment/Plan Problem List: (1) ATN (acute tubular necrosis) (2) ARDS (adult respiratory distress syndrome) (3) Acute respiratory failure with hypoxemia Assessment (1) Acute respiratory failure with hypoxemia- On Vent (2) ARDS (adult respiratory distress syndrome) (3) ATN (acute tubular necrosis) (4) Delirium tremens (5) Rapid atrial fibrillation Plan start feeding by tube Vent support- Librium RTC Keep BP under control Avoid nephrotoxics monitor renal parameters Albumin boluses k and phos and Mag as needed Subjective ROS Limited/Unobtainable: Yes Objective Objective Last 24 Hour Vital Signs Date Time Temp Pulse Resp B/P (MAP) Pulse Ox O2 Delivery O2 Flow Rate FiO2 10/02/18 12:50 97 25 40 10/02/18 12:00 Mechanical Ventilator 10/02/18 12:00 99.9 100 22 83/52 (62) 99 10/02/18 12:00 50 10/02/18 11:01 113 27 40 40 10/02/18 11:00 111 27 108/54 (72) 99 10/02/18 10:00 116 28 101/71 (81) 97 10/02/18 09:24 109 29 40 40 10/02/18 09:00 109 28 130/68 (88) 98 10/02/18 08:00 Mechanical Ventilator 10/02/18 08:00 99.3 117 31 108/73 (85) 98 10/02/18 08:00 50 10/02/18 07:00 118 28 122/63 (82) 96 10/02/18 06:48 122 25 40 50 10/02/18 06:30 118 28 122/74 (90) 96 10/02/18 06:00 112 28 110/64 (79) 96 10/02/18 05:30 110 28 106/65 (79) 96 10/02/18 05:00 103 28 116/73 (87) 96 10/02/18 04:54 108 26 40 50 10/02/18 04:30 99 28 106/66 (79) 97 10/02/18 04:00 106 10/02/18 04:00 99 15 104/57 (73) 95 10/02/18 04:00 50 10/02/18 04:00 Mechanical Ventilator 10/02/18 03:30 100 28 106/64 (78) 95 10/02/18 03:29 92 26 40 50 10/02/18 03:00 99.4 100 15 108/68 (81) 99 10/02/18 02:30 96 25 89/55 (66) 100 10/02/18 02:00 97 17 100/58 (72) 98 10/02/18 01:30 95 17 84/55 (65) 98 10/02/18 01:00 96 17 92/51 (65) 98 10/02/18 00:43 106 24 50 50 10/02/18 00:30 99.0 98 19 93/61 (72) 99 10/02/18 00:00 Mechanical Ventilator 10/02/18 00:00 110 10/02/18 00:00 50 10/02/18 00:00 101 19 96/61 (73) 99 10/01/18 23:30 106 19 104/64 (77) 99 10/01/18 23:00 108 19 98/57 (71) 99 10/01/18 22:49 98.5 10/01/18 22:43 124 31 50 50 10/01/18 22:30 116 29 96/55 (69) 98 10/01/18 22:00 122 29 110/59 (76) 99 10/01/18 21:30 132 28 105/88 (94) 99 10/01/18 21:10 111 28 50 50 10/01/18 21:00 98.5 131 28 101/57 (72) 98 10/01/18 20:30 119 30 115/72 (86) 100 10/01/18 20:00 100.3 120 27 108/61 (77) 98 10/01/18 20:00 50 10/01/18 20:00 99 10/01/18 20:00 Mechanical Ventilator 10/01/18 19:30 120 32 98/57 (71) 100 10/01/18 19:02 139 34 50 50 10/01/18 19:00 100.4 132 27 108/61 (77) 98 10/01/18 18:00 97 34 88/40 (56) 96 10/01/18 17:01 110 36 50 10/01/18 17:00 114 37 108/89 (95) 98 10/01/18 16:30 99 33 92/58 (69) 98 10/01/18 16:00 50 10/01/18 16:00 Mechanical Ventilator 10/01/18 16:00 99 10/01/18 16:00 99.0 99 34 102/61 (75) 98 10/01/18 15:30 109 34 110/61 (77) 98 10/01/18 15:12 114 34 50 10/01/18 15:00 120 35 91/56 (68) 98 10/01/18 14:30 116 35 97/61 (73) 100 10/01/18 14:00 116 36 99/52 (68) 100 Intake and Output 10/01/18 10/02/18 18:59 06:59 Intake Total 1553.32 ml 1133.36 ml Output Total 1090 ml 780 ml Balance 463.32 ml 353.36 ml Intake IV Total 1553.32 ml 1133.36 ml Output Urine Total 1090 ml 780 ml Laboratory Tests 10/02/18 04:30: White Blood Count 10.5, Red Blood Count 2.99L, Hemoglobin 9.3L, Hematocrit 28.9L , Mean Corpuscular Volume 97, Mean Corpuscular Hemoglobin 31.2H, Mean Corpuscular Hemoglobin Concent 32.3, Red Cell Distribution Width 16.2H, Platelet Count 103L, Mean Platelet Volume 11.4H, Neutrophils (%) (Auto) 79.1H, Lymphocytes (%) (Auto) 7.1L, Monocytes (%) (Auto) 7.9, Eosinophils (%) (Auto) 5.1H, Basophils (%) (Auto) 0.8, Sodium Level 142, Potassium Level 3.3L, Chloride Level 110H, Carbon Dioxide Level 19L, Anion Gap 13, Blood Urea Nitrogen 19H, Creatinine 1.3, Estimat Glomerular Filtration Rate 55.2, Glucose Level 96, Uric Acid 4.1, Calcium Level 7.2L, Phosphorus Level 2.0L, Magnesium Level 1.5L, Total Bilirubin 0.9, Aspartate Amino Transf (AST/SGOT) 26, Alanine Aminotransferase (ALT/SGPT) 10L, Alkaline Phosphatase 83, Troponin I 0.000, C- Reactive Protein, Quantitative 24.5H, Pro-B-Type Natriuretic Peptide 5888H, Total Protein 5.2L, Albumin 1.5L, Globulin 3.7, Albumin/Globulin Ratio 0.4L 10/02/18 08:10: Arterial Blood pH 7.341L, Arterial Blood Partial Pressure CO2 35.9, Arterial Blood Partial Pressure O2 86.5, Arterial Blood HCO3 19.0L, Arterial Blood Oxygen Saturation 96.1, Arterial Blood Base Excess -6.1L, Blaine Test Positive Height (Feet): 5 Height (Inches): 6.00 Weight (Pounds): 157 General Appearance: no apparent distress Cardiovascular: tachycardia Respiratory/Chest: decreased breath sounds Abdomen: distended Kaden Cordova MD Oct 02, 2018 13:17
--- NOTE | 2018-10-02 15:00 | NUR ---
NURSE NOTES: PT RESTING IN BED. FAMILY AT BEDSIDE. TF STARTED @ 30ML/HR JEVITY 1.2 , GOAL 40ML/HR. HOB >30. WILL CONTINUE TO MONITOR.
--- NOTE | 2018-10-02 17:30 | NUR ---
NURSE NOTES: Pt repositioned and now resting comfortably, showing no signs of distress. VSS. Will continue to monitor.
[2018-10-02] MEDS: Cefepime HCl 1 GM in D5W 55 ML IVPB SCH (17:57)
--- NOTE | 2018-10-02 18:00 | Internal Med Progress Note ---
Subjective Date of Service: Oct 02, 2018 Physician Name Sanford Castellano Attending Physician Benjamin Sterling MD Current Medications Medications (Trade) Dose Ordered Sig/Hoa Route PRN Reason Start Time Stop Time Status Last Admin Dose Admin Acetaminophen (Tylenol) 650 mg Q4H PRN ORAL fever (temp>100.5F) 09/28/18 03:45 10/26/18 19:44 10/01/18 22:19 Cefepime HCl 1 gm/ Dextrose 55 ml @ 110 mls/hr Q24H IVPB 09/29/18 17:00 10/06/18 16:59 10/02/18 17:57 Chlordiazepoxide (Librium) 25 mg Q6HR NG 10/01/18 12:30 10/08/18 12:29 10/02/18 17:57 Chlorhexidine Gluconate (Zainab-Hex 2%) 1 applic DAILY@2000 TOPIC 09/29/18 20:00 10/29/18 19:59 10/01/18 20:31 Dextrose (Dextrose 50%) 25 ml Q30M PRN IV Hypoglycemia 09/28/18 01:30 10/26/18 17:59 Dextrose (Dextrose 50%) 50 ml Q30M PRN IV Hypoglycemia 09/28/18 01:30 10/26/18 17:59 Dextrose/ Electrolytes 1,000 ml @ 75 mls/hr [id number] IV 10/01/18 08:15 10/31/18 08:14 10/02/18 09:35 Ipratropium [place] (Atrovent) 500 mcg Q4H PRN HHN Shortness of Breath 09/28/18 04:00 10/02/18 19:59 09/28/18 23:11 Lorazepam (Ativan 2mg/ml 1ml) 1 mg Q1H PRN IV agitation, cofusion, dt 09/28/18 12:45 10/05/18 12:44 10/02/18 09:41 Metoprolol Tartrate 5 mg/ Dextrose 60 ml @ 130 mls/hr Q6HR PRN IVPB hr greater than 118 09/28/18 09:30 10/28/18 09:29 10/01/18 02:20 Midazolam HCl (Versed 2mg/2ml vial) 1 mg Q1H PRN IVP Agitation 09/28/18 13:00 10/28/18 12:59 09/30/18 20:06 Morphine Sulfate (Morphine Sulfate) 4 mg Q2H PRN IV For Pain (7-10) 09/28/18 02:00 10/03/18 17:59 09/28/18 22:49 Norepinephrine Bitartrate 4 mg/ Dextrose 250 ml @ 0 mls/hr Q24H IV 09/29/18 00:30 10/29/18 00:29 09/30/18 03:01 Ondansetron HCl (Zofran) 4 mg Q6H PRN IVP Nausea & Vomiting 09/28/18 01:45 10/27/18 19:44 Pantoprazole (Protonix) 40 mg EVERY 12 HOURS IVP 09/29/18 21:00 10/29/18 20:59 10/02/18 09:34 Quetiapine Fumarate (SEROquel) 50 mg Q12HR ORAL 09/28/18 21:00 10/27/18 08:59 10/02/18 09:34 Temazepam (Restoril) 15 mg HSPRN PRN ORAL Insomnia 09/28/18 19:45 10/04/18 19:44 Thiamine HCl 100 mg/Dextrose 111 ml @ 220 mls/hr Q24H IVPB 09/28/18 11:00 10/28/18 10:59 10/02/18 11:56 Allergies: Coded Allergies: No Known Allergies (Unverified , 09/06/15) ROS Limited/Unobtainable: Yes Subjective 68 YO M admitted with hematuria and hypotension. Now atrial fibrillation with rapid ventricular rate. Cover for Int Med-Dr Sterling. ICU. Intubated and sedated Objective Last Vital Signs Date Time Temp Pulse Resp B/P (MAP) Pulse Ox O2 Delivery O2 Flow Rate FiO2 10/02/18 17:05 113 27 40 10/02/18 17:00 98.8 116/56 (76) 99 10/02/18 16:00 Mechanical Ventilator 09/29/18 00:00 15.0 Laboratory Tests Test 10/02/18 04:30 10/02/18 08:10 White Blood Count 10.5 K/UL (4.8-10.8) Red Blood Count 2.99 M/UL (4.70-6.10) L Hemoglobin 9.3 G/DL (14.2-18.0) L Hematocrit 28.9 % (42.0-52.0) L Mean Corpuscular Volume 97 FL (80-99) Mean Corpuscular Hemoglobin 31.2 PG (27.0-31.0) H Mean Corpuscular Hemoglobin Concent 32.3 G/DL (32.0-36.0) Red Cell Distribution Width 16.2 % (11.6-14.8) H Platelet Count 103 K/UL (150-450) L Mean Platelet Volume 11.4 FL (6.5-10.1) H Neutrophils (%) (Auto) 79.1 % (45.0-75.0) H Lymphocytes (%) (Auto) 7.1 % (20.0-45.0) L Monocytes (%) (Auto) 7.9 % (1.0-10.0) Eosinophils (%) (Auto) 5.1 % (0.0-3.0) H Basophils (%) (Auto) 0.8 % (0.0-2.0) Sodium Level 142 MMOL/L (136-145) Potassium Level 3.3 MMOL/L (3.5-5.1) L Chloride Level 110 MMOL/L (98-107) H Carbon Dioxide Level 19 MMOL/L (21-32) L Anion Gap 13 mmol/L (5-15) Blood Urea Nitrogen 19 mg/dL (7-18) H Creatinine 1.3 MG/DL (0.55-1.30) Estimat Glomerular Filtration Rate 55.2 mL/min (>60) Glucose Level 96 MG/DL (74-106) Uric Acid 4.1 MG/DL (2.6-7.2) Calcium Level 7.2 MG/DL (8.5-10.1) L Phosphorus Level 2.0 MG/DL (2.5-4.9) L Magnesium Level 1.5 MG/DL (1.8-2.4) L Total Bilirubin 0.9 MG/DL (0.2-1.0) Aspartate Amino Transf (AST/SGOT) 26 U/L (15-37) Alanine Aminotransferase (ALT/SGPT) 10 U/L (12-78) L Alkaline Phosphatase 83 U/L (46-116) Troponin I 0.000 ng/mL (0.000-0.056) C-Reactive Protein, Quantitative 24.5 mg/dL (0.00-0.90) H Pro-B-Type Natriuretic Peptide 5888 pg/mL (0-125) H Total Protein 5.2 G/DL (6.4-8.2) L Albumin 1.5 G/DL (3.4-5.0) L Globulin 3.7 g/dL Albumin/Globulin Ratio 0.4 (1.0-2.7) L Arterial Blood pH 7.341 (7.350-7.450) Arterial Blood Partial Pressure CO2 35.9 mmHg (35.0-45.0) Arterial Blood Partial Pressure O2 86.5 mmHg (75.0-100.0) Arterial Blood HCO3 19.0 mmol/L (22.0-26.0) L Arterial Blood Oxygen Saturation 96.1 % (95-100) Arterial Blood Base Excess -6.1 (-2-2) L Blaine Test Positive Intake and Output 10/01/18 10/02/18 19:00 07:00 Intake Total 1586.65 ml 1116.70 ml Output Total 1150 ml 740 ml Balance 436.65 ml 376.70 ml Intake IV Total 1586.65 ml 1116.70 ml Output Urine Total 1150 ml 740 ml Objective General Appearance: WD/WN, no apparent distress, alert EENT: PERRL/EOMI, normal ENT inspection, TMs normal Neck: non-tender, normal alignment, supple, normal inspection Cardiovascular: Tachy; irreg/irreg; normal peripheral pulses, normal rate, no gallop/murmur, no JVD Respiratory/Chest: Mech vent; chest wall non-tender, lungs clear, coarse upper breath sounds, no respiratory distress, no accessory muscle use Abdomen: normal bowel sounds, non tender, soft, no organomegaly, no mass Extremities: normal range of motion, non-tender Neurologic: drier operator helper II-XII grossly normal, no motor/sensory deficts Assessment/Plan Assessment/Plan Assessment/Plan Assessment/Plan Problem List: (1) Severe sepsis ICD Codes: A41.9 - Sepsis, unspecified organism; R65.20 - Severe sepsis without septic shock SNOMED: 92247538 (2) Acute alcoholic intoxication ICD Codes: F10.129 - Alcohol abuse with intoxication, unspecified SNOMED: 15230270 (3) Nephrolithiasis ICD Codes: N20.0 - Calculus of kidney SNOMED: 42164650 (4) Hematuria ICD Codes: R31.9 - Hematuria, unspecified SNOMED: 28122689 5. Atrial fibrillation with rapid ventricular rate 6. Respiratory failure/ARDS Assessment/Plan fernandez cultures iv abx banana bag Librium, Seroquel and Klonipin iv abx, ID evaluation Metoprolol drip per Cardiology ICU status Cont mech vent per pulmonary Abx=Cefepime Sanford Castellano MD Oct 02, 2018 18:00
--- NOTE | 2018-10-02 19:10 | NUR ---
RESPIRATORY NOTE: Received pt on AC 16, 600VT, 40%, PEEP +5. Pt intubated w/ ETT 7.5 @ 23cm lipline, secured by anchorfast. Pt is awake, responds to stimuli. Both hands on soft restraints to prevent pt from self-extubation. B/S kandi. rhonchi/diminished, sxn small to moderate amounts of thin, gibbs-yellow secretions. Vent plugged into red outlet, ambubag at bedside. Pt in no apparent distress at this time. Will continue to monitor pt.
--- NOTE | 2018-10-02 19:54 | NUR ---
HAND-OFF: Report given to mari. pt in no acute distress
--- NOTE | 2018-10-02 19:55 | NUR ---
NURSE NOTES: Endorsement received from YING Mcguire. Patient opens eyes spontaneously. ET 7.5, 23 lipline. AC 16 Vt 600 PEEP 5 40% FiO2. NGT patent and intact. Placement rechecked per auscultation. Ongoing Jevity 1.2 30ml/hr. Right hand g 20, left AC g20, right fem TLC. Receiving D5W KCl 20meqs at 75 ml/hr. Steen catheter F16 connected to urimeter. SCDs in place. Head of bed elevated. Bed alarm on. Bed locked and in low position. Call light within reach.
--- NOTE | 2018-10-02 20:00 | NUR ---
NURSE NOTES: With temperature of 101F. PRN Tylenol given. Cooling measures initiated.
[2018-10-02] MEDS: Dyna-Hex 2% Top Sol 2oz TOPIC SCH (20:18)
[2018-10-02] MEDS: Amiodarone 200mg tab ORAL SCH (20:19)
--- NOTE | 2018-10-02 21:03 | Cardiology Progress Note ---
Assessment/Plan Assessment/Plan tachy ? MAT vs sinus svt hypotension septic shock ards alcohol with drawl syndrome ams etoh intoxication respiratory failure thrombocytopenia has intermittent very rapid run of svt and some wide complex tachy intubated on bryant vent cxr appearence of ards still quite abn reviewed personally echo normal lv systolic function monitor mcl 1 lead on tele may be better showing of the atrial activity switch to po amio st iv abx torp neg treated for pending DT / etoh withdraw signs d/w rn cardiovascular icu reviewed on less oxygen adn off pressor awake but nto seem to be communicatign with me or the family Subjective ROS Limited/Unobtainable: Yes Subjective intuabeted awke but not reasly respond Objective Last 24 Hour Vital Signs Date Time Temp Pulse Resp B/P (MAP) Pulse Ox O2 Delivery O2 Flow Rate FiO2 10/02/18 20:55 97 29 40 10/02/18 19:08 102 28 40 10/02/18 18:00 99 28 107/61 (76) 99 10/02/18 17:05 113 27 40 10/02/18 17:00 98.8 99 26 116/56 (76) 99 10/02/18 16:00 50 10/02/18 16:00 105 10/02/18 16:00 Mechanical Ventilator 10/02/18 16:00 99 27 109/63 (78) 99 10/02/18 15:10 91 28 40 10/02/18 15:00 114 29 119/59 (79) 96 10/02/18 14:00 100 26 103/59 (74) 98 10/02/18 13:00 94 25 92/48 (63) 98 10/02/18 12:50 97 25 40 10/02/18 12:00 Mechanical Ventilator 10/02/18 12:00 99.9 100 22 83/52 (62) 99 10/02/18 12:00 91 10/02/18 12:00 50 10/02/18 11:01 113 27 40 40 10/02/18 11:00 111 27 108/54 (72) 99 10/02/18 10:00 116 28 101/71 (81) 97 10/02/18 09:24 109 29 40 40 10/02/18 09:00 109 28 130/68 (88) 98 10/02/18 08:00 Mechanical Ventilator 10/02/18 08:00 108 10/02/18 08:00 99.3 117 31 108/73 (85) 98 10/02/18 08:00 50 10/02/18 07:00 118 28 122/63 (82) 96 10/02/18 06:48 122 25 40 50 10/02/18 06:30 118 28 122/74 (90) 96 10/02/18 06:00 112 28 110/64 (79) 96 10/02/18 05:30 110 28 106/65 (79) 96 10/02/18 05:00 103 28 116/73 (87) 96 10/02/18 04:54 108 26 40 50 10/02/18 04:30 99 28 106/66 (79) 97 10/02/18 04:00 106 10/02/18 04:00 99 15 104/57 (73) 95 10/02/18 04:00 50 10/02/18 04:00 Mechanical Ventilator 10/02/18 03:30 100 28 106/64 (78) 95 10/02/18 03:29 92 26 40 50 10/02/18 03:00 99.4 100 15 108/68 (81) 99 10/02/18 02:30 96 25 89/55 (66) 100 10/02/18 02:00 97 17 100/58 (72) 98 10/02/18 01:30 95 17 84/55 (65) 98 10/02/18 01:00 96 17 92/51 (65) 98 10/02/18 00:43 106 24 50 50 10/02/18 00:30 99.0 98 19 93/61 (72) 99 10/02/18 00:00 Mechanical Ventilator 10/02/18 00:00 110 10/02/18 00:00 50 10/02/18 00:00 101 19 96/61 (73) 99 10/01/18 23:30 106 19 104/64 (77) 99 10/01/18 23:00 108 19 98/57 (71) 99 10/01/18 22:49 98.5 10/01/18 22:43 124 31 50 50 10/01/18 22:30 116 29 96/55 (69) 98 10/01/18 22:00 122 29 110/59 (76) 99 10/01/18 21:30 132 28 105/88 (94) 99 10/01/18 21:10 111 28 50 50 General Appearance: no apparent distress, alert, on vent Cardiovascular: normal rate Respiratory/Chest: lungs clear - clear Abdomen: normal bowel sounds, non tender, soft Extremities: no swelling Intake and Output 10/01/18 10/02/18 19:00 07:00 Intake Total 1586.65 ml 1116.70 ml Output Total 1150 ml 740 ml Balance 436.65 ml 376.70 ml Intake IV Total 1586.65 ml 1116.70 ml Output Urine Total 1150 ml 740 ml Laboratory Tests Test 10/02/18 04:30 10/02/18 08:10 White Blood Count 10.5 K/UL (4.8-10.8) Red Blood Count 2.99 M/UL (4.70-6.10) L Hemoglobin 9.3 G/DL (14.2-18.0) L Hematocrit 28.9 % (42.0-52.0) L Mean Corpuscular Volume 97 FL (80-99) Mean Corpuscular Hemoglobin 31.2 PG (27.0-31.0) H Mean Corpuscular Hemoglobin Concent 32.3 G/DL (32.0-36.0) Red Cell Distribution Width 16.2 % (11.6-14.8) H Platelet Count 103 K/UL (150-450) L Mean Platelet Volume 11.4 FL (6.5-10.1) H Neutrophils (%) (Auto) 79.1 % (45.0-75.0) H Lymphocytes (%) (Auto) 7.1 % (20.0-45.0) L Monocytes (%) (Auto) 7.9 % (1.0-10.0) Eosinophils (%) (Auto) 5.1 % (0.0-3.0) H Basophils (%) (Auto) 0.8 % (0.0-2.0) Sodium Level 142 MMOL/L (136-145) Potassium Level 3.3 MMOL/L (3.5-5.1) L Chloride Level 110 MMOL/L (98-107) H Carbon Dioxide Level 19 MMOL/L (21-32) L Anion Gap 13 mmol/L (5-15) Blood Urea Nitrogen 19 mg/dL (7-18) H Creatinine 1.3 MG/DL (0.55-1.30) Estimat Glomerular Filtration Rate 55.2 mL/min (>60) Glucose Level 96 MG/DL (74-106) Uric Acid 4.1 MG/DL (2.6-7.2) Calcium Level 7.2 MG/DL (8.5-10.1) L Phosphorus Level 2.0 MG/DL (2.5-4.9) L Magnesium Level 1.5 MG/DL (1.8-2.4) L Total Bilirubin 0.9 MG/DL (0.2-1.0) Aspartate Amino Transf (AST/SGOT) 26 U/L (15-37) Alanine Aminotransferase (ALT/SGPT) 10 U/L (12-78) L Alkaline Phosphatase 83 U/L (46-116) Troponin I 0.000 ng/mL (0.000-0.056) C-Reactive Protein, Quantitative 24.5 mg/dL (0.00-0.90) H Pro-B-Type Natriuretic Peptide 5888 pg/mL (0-125) H Total Protein 5.2 G/DL (6.4-8.2) L Albumin 1.5 G/DL (3.4-5.0) L Globulin 3.7 g/dL Albumin/Globulin Ratio 0.4 (1.0-2.7) L Arterial Blood pH 7.341 (7.350-7.450) Arterial Blood Partial Pressure CO2 35.9 mmHg (35.0-45.0) Arterial Blood Partial Pressure O2 86.5 mmHg (75.0-100.0) Arterial Blood HCO3 19.0 mmol/L (22.0-26.0) L Arterial Blood Oxygen Saturation 96.1 % (95-100) Arterial Blood Base Excess -6.1 (-2-2) L Blaine Test Positive Mumtaz Leon MD Oct 02, 2018 21:03
--- NOTE | 2018-10-02 22:00 | NUR ---
NURSE NOTES: Secretions suctioned. Scant white secretions. Repositioned patient.
[2018-10-03] VITALS (24 sets, daily range): BP systolic 94–149; BP diastolic 50–81
--- NOTE | 2018-10-03 | NUR ---
NURSE NOTES: Patient asleep. No signs of pain or discomfort. Afebrile at this time. Tolerating tube feeding, increased to goal rate of 40ml/hr. Will reassess
--- NOTE | 2018-10-03 02:00 | NUR ---
NURSE NOTES: Patient asleep. No shortness of breath.
[2018-10-03] MEDS: D5W w/KCl 20mEq 1,000 ML IV SCH ×2 (03:26→19:43)
--- NOTE | 2018-10-03 04:01 | NUR ---
NURSE NOTES: Bed bath, oral care done.
[2018-10-03 05:34] LABS: HEMATOCRIT 28.1 % (42.0-52.0); HEMOGLOBIN 9.3 G/DL (14.2-18.0); MEAN CORPUSCULAR VOLUME 96 FL (80-99); PLATELET COUNT 150 K/UL (150-450); RED BLOOD COUNT 2.94 M/UL (4.70-6.10); RED CELL DISTRIBUTION WIDTH 16.2 % (11.6-14.8); WHITE BLOOD COUNT 13.4 K/UL (4.8-10.8)
[2018-10-03 05:57] LABS: ALANINE AMINOTRANSFERASE 10 U/L (12-78); ALBUMIN 1.5 G/DL (3.4-5.0); ALBUMIN/GLOBULIN RATIO 0.4 (1.0-2.7); ALKALINE PHOSPHATASE 93 U/L (46-116); ANION GAP 11 mmol/L (5-15); ASPARTATE AMINO TRANSFERASE 27 U/L (15-37); BILIRUBIN,TOTAL 0.5 MG/DL (0.2-1.0); BLOOD UREA NITROGEN 17 mg/dL (7-18); CALCIUM 7.6 MG/DL (8.5-10.1); CARBON DIOXIDE 22 MMOL/L (21-32); CHLORIDE 109 MMOL/L (98-107); CREATININE 1.2 MG/DL (0.55-1.30); POTASSIUM 3.3 MMOL/L (3.5-5.1); SODIUM 142 MMOL/L (136-145)
--- NOTE | 2018-10-03 06:00 | NUR ---
NURSE NOTES: Patient repositioned. VSS
[2018-10-03] MEDS: chlordiazePOXIDE 25mg Cap NG SCH ×4 (06:39→23:40)
--- NOTE | 2018-10-03 07:09 | NUR ---
RESPIRATORY NOTE: Received pt orally intubated with ETT 7.5 @23 cm lips line, secured by anchor fast, with vent settings: AC 16-600ml-40%FiO2- peep 5. Rob rhonchi diminished breath sounds heard upon auscultation, sxn small amount of thin gibbs yellow secretions without incidents. Pt is not in distress at this time. Alarms are on and audible, vent is plugged into the red outlet, ambu bag is at bedside. Will continue to monitor pt.
--- NOTE | 2018-10-03 07:21 | NUR ---
HAND-OFF: Report given to YING Munoz per SBAR
--- NOTE | 2018-10-03 07:32 | NUR ---
NURSE NOTES: Patient was received from YING Sarabia. Awake and able to follow command.Orally intubated 7.5/ Ac 16 Vt600 Fio2 40 Peep 5 and saturate at 97% at this time.Afebrile, GT residual 10cc, GT placement intact, HOB elevated to prevent aspiration.RF/TLC patent, dressing clean and intact running D5W with 20KCL at 75cc/hr.Mouth care done,turned and repositioned.HOB elevated to prevent aspiration.Call light within easy reach at all the times.Will continue to monitor.
[2018-10-03] MEDS: Pantoprazole Inj IVP SCH ×2 (08:11→20:37)
--- NOTE | 2018-10-03 08:37 | NUR ---
RADIOLOGY DEPT., CHEST X-RAY DONE.-P.DYE
--- NOTE | 2018-10-03 09:09 | NUR ---
RESPIRATORY NOTE: Placed pt on CPAP PS 10- 40% FiO2 per weaning protocol, pt is tolerating well, saturates at 97%. No SOB or resp distress noted. RN Tammy made aware. Will continue to monitor.
--- NOTE | 2018-10-03 09:10 | NUR ---
NURSE NOTES: Patient placed on Cpap pressure support of 10.Deep breathing exercises instruction provided and tolerate well.HOB kept elevated to prevent aspiration.Will continue to monitor
--- NOTE | 2018-10-03 10:04 | Pulmonolgy Critical Care Note ---
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, 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, residential case managerdba manager - Objective Last 24 Hour Vital Signs Date Time Temp Pulse Resp B/P (MAP) Pulse Ox O2 Delivery O2 Flow Rate FiO2 10/03/18 09:41 105 33 40 40 10/03/18 09:09 97 10/03/18 09:09 91 31 40 40 10/03/18 08:00 Mechanical Ventilator 10/03/18 08:00 40 10/03/18 08:00 104 10/03/18 08:00 98.6 99 24 120/67 (84) 99 10/03/18 07:09 104 25 40 10/03/18 07:00 105 26 149/81 (103) 99 10/03/18 06:00 110 26 149/81 (103) 99 10/03/18 05:26 117 26 40 10/03/18 05:00 107 26 121/57 (78) 99 10/03/18 04:00 50 10/03/18 04:00 99.0 108 25 120/70 (87) 98 10/03/18 04:00 Mechanical Ventilator 10/03/18 04:00 118 10/03/18 03:00 121 25 40 10/03/18 03:00 114 25 118/63 (81) 98 10/03/18 02:00 105 25 110/71 (84) 98 10/03/18 01:05 87 27 40 10/03/18 01:00 94 27 106/67 (80) 97 10/03/18 00:11 101/67 10/03/18 00:00 109 10/03/18 00:00 Mechanical Ventilator 10/03/18 00:00 50 10/03/18 00:00 98.8 110 26 101/67 (78) 99 10/02/18 23:02 101 27 40 10/02/18 23:00 110 26 119/58 (78) 99 10/02/18 22:00 106 28 107/61 (76) 99 10/02/18 21:02 100.2 10/02/18 21:00 107 28 101/56 (71) 99 10/02/18 20:55 97 29 40 10/02/18 20:00 40 10/02/18 20:00 104 10/02/18 20:00 100.2 103 28 106/61 (76) 99 10/02/18 20:00 Mechanical Ventilator 10/02/18 19:08 102 28 40 10/02/18 19:00 101.0 103 27 118/63 (81) 99 10/02/18 18:00 99 28 107/61 (76) 99 10/02/18 17:05 113 27 40 10/02/18 17:00 98.8 99 26 116/56 (76) 99 10/02/18 16:00 50 10/02/18 16:00 105 10/02/18 16:00 Mechanical Ventilator 10/02/18 16:00 99 27 109/63 (78) 99 10/02/18 15:10 91 28 40 10/02/18 15:00 114 29 119/59 (79) 96 10/02/18 14:00 100 26 103/59 (74) 98 10/02/18 13:00 94 25 92/48 (63) 98 10/02/18 12:50 97 25 40 10/02/18 12:00 Mechanical Ventilator 10/02/18 12:00 99.9 100 22 83/52 (62) 99 10/02/18 12:00 91 10/02/18 12:00 50 10/02/18 11:01 113 27 40 40 10/02/18 11:00 111 27 108/54 (72) 99 Status: awake Condition: critical HEENT: atraumatic, normocephalic Lungs: chest wall tender Heart: HR/BP stable Abdomen: soft Extremities: no C/C/E Critical Care - Subjective ROS Limited/Unobtainable: Yes Condition: critical FI02: 40 Vent Support Breath Rate: 16 Vent Support Mode: CPAP Vent Tidal Volume: 600 Sputum Amount: None PEEP: 5.0 PIP: 16 Tube Feeding Amount: 40 I&O: Intake and Output 10/02/18 10/03/18 18:59 06:59 Intake Total 1642.53 ml 1480 ml Output Total 845 ml 1010 ml Balance 797.53 ml 470 ml Intake Free Water 150 ml IV Total 1542.53 ml 900 ml Tube Feeding 100 ml 430 ml Output Urine Total 845 ml 1010 ml # Bowel Movements 1 CXR: slight improvement ET-Tube: 7.5 ET Position: 23 Labs: Laboratory Tests Test 10/03/18 04:30 White Blood Count 13.4 K/UL (4.8-10.8) H Red Blood Count 2.94 M/UL (4.70-6.10) L Hemoglobin 9.3 G/DL (14.2-18.0) L Hematocrit 28.1 % (42.0-52.0) L Mean Corpuscular Volume 96 FL (80-99) Mean Corpuscular Hemoglobin 31.6 PG (27.0-31.0) H Mean Corpuscular Hemoglobin Concent 33.0 G/DL (32.0-36.0) Red Cell Distribution Width 16.2 % (11.6-14.8) H Platelet Count 150 K/UL (150-450) Mean Platelet Volume 10.4 FL (6.5-10.1) H Neutrophils (%) (Auto) % (45.0-75.0) Lymphocytes (%) (Auto) % (20.0-45.0) Monocytes (%) (Auto) % (1.0-10.0) Eosinophils (%) (Auto) % (0.0-3.0) Basophils (%) (Auto) % (0.0-2.0) Sodium Level 142 MMOL/L (136-145) Potassium Level 3.3 MMOL/L (3.5-5.1) L Chloride Level 109 MMOL/L (98-107) H Carbon Dioxide Level 22 MMOL/L (21-32) Anion Gap 11 mmol/L (5-15) Blood Urea Nitrogen 17 mg/dL (7-18) Creatinine 1.2 MG/DL (0.55-1.30) Estimat Glomerular Filtration Rate > 60 mL/min (>60) Glucose Level 107 MG/DL (74-106) H Calcium Level 7.6 MG/DL (8.5-10.1) L Phosphorus Level 3.0 MG/DL (2.5-4.9) Magnesium Level 1.5 MG/DL (1.8-2.4) L Total Bilirubin 0.5 MG/DL (0.2-1.0) Gamma Glutamyl Transpeptidase 35 U/L (5-85) Aspartate Amino Transf (AST/SGOT) 27 U/L (15-37) Alanine Aminotransferase (ALT/SGPT) 10 U/L (12-78) L Alkaline Phosphatase 93 U/L (46-116) Ammonia 15 umol/L (11-32) Troponin I 0.005 ng/mL (0.000-0.056) C-Reactive Protein, Quantitative 18.9 mg/dL (0.00-0.90) H Pro-B-Type Natriuretic Peptide 3074 pg/mL (0-125) H Total Protein 5.2 G/DL (6.4-8.2) L Albumin 1.5 G/DL (3.4-5.0) L Globulin 3.7 g/dL Albumin/Globulin Ratio 0.4 (1.0-2.7) L Garret Petty MD Oct 03, 2018 10:04
[2018-10-03] MEDS ORDERED: Lidocaine 1% Plain 30 ml INJ PRN (10:30)
[2018-10-03] MEDS ORDERED: Heparin1,000 units/500ml Premix(Conc:2 units/ml) IV PRN (10:30)
[2018-10-03] MEDS: Thiamine HCl 100 MG in D5W 110 ML IVPB SCH (10:34)
--- NOTE | 2018-10-03 10:35 | NUR ---
NURSE NOTES: Unable to tolerate weaning , RR 35, place back on AC mode.Turned and repositioned.HOB elevated to prevent aspiration.Kept clean and dry.
--- NOTE | 2018-10-03 11:03 | NUR ---
Social Work This SW met with patient who is currently in the ICU (intubated, responsive, but showing some confusion at times). This Sw spoke with son, Deniz ([phone]) who explains patient has been homeless, abusing alcohol. Patient has a history of employment; this SW advised applying for Social Security benefits, when able. Son informed this SW that he would like to be contacted, so he can take patient to apply for Social Security. Patient does not have a phone, which makes it difficult for family to know where patient has been staying. SW to follow to assist with resources, while possibly may need Recuperative Care (pending progress at this time).
--- NOTE | 2018-10-03 11:33 | Infectious Diseases Prog Note ---
Assessment/Plan Assessment/Plan Assessment: Sepsis/Septic shock- now off pressors -Bcx Neg Probable UTI -u/a wbc 15-20, nit neg, leuk +3; ucx Morganella morganni (R ancef, amp; otherwise S) Fever- probable multifactorial 2ry to alcohol withdrawal, UTI- r/o bacteremia, Cdiff, JUSTIN Leukocytosis, mild recurrent Etoh intoxication- now ETOH withdrawal w/ DT Acute respiratory failure/ ARDS s/p intubation -CXR Extensive airspace disease again demonstrated without change. Thrombocytopenia- probably in the setting of sepsis and bone marrow suppression 2ry to EtOH Afib w/ RVR KARLA, improving EtOH abuse, nephrolithiasis Plan: -Continue Cefepime #5 (abx d #02/14) to cover for probable Amp-C Morganella and add empiric IV Vancomycin given fever and leukocytosis -09/29 SP Ceftriaxone #4 -09/26 SP Zosyn x1 -Bcxx 2, u/a w/ reflex, sp cx, Cdiff -f.u cx -Monitor CBC/CMP, temperatures =aspiration precautions -ETT/ICU care Thank you for this consultation. Will continue to follow along with you. Discussed with radiology dept as none of the CXR has been uploaded to EMR (no image or report) Subjective Allergies: Coded Allergies: No Known Allergies (Unverified , 09/06/15) Subjective tm 101.4 mild leukocytosis fio2 40% off pressors Objective Vital Signs Last 24 Hour Vital Signs Date Time Temp Pulse Resp B/P (MAP) Pulse Ox O2 Delivery O2 Flow Rate FiO2 10/03/18 11:00 103 25 94/51 (65) 98 10/03/18 10:00 107 26 117/50 (72) 98 10/03/18 09:41 105 33 40 40 10/03/18 09:09 97 10/03/18 09:09 91 31 40 40 10/03/18 09:00 102 26 115/59 (77) 99 10/03/18 08:00 Mechanical Ventilator 10/03/18 08:00 40 10/03/18 08:00 104 10/03/18 08:00 98.6 99 24 120/67 (84) 99 10/03/18 07:09 104 25 40 10/03/18 07:00 105 26 149/81 (103) 99 10/03/18 06:00 110 26 149/81 (103) 99 10/03/18 05:26 117 26 40 10/03/18 05:00 107 26 121/57 (78) 99 10/03/18 04:00 50 10/03/18 04:00 99.0 108 25 120/70 (87) 98 10/03/18 04:00 Mechanical Ventilator 10/03/18 04:00 118 10/03/18 03:00 121 25 40 10/03/18 03:00 114 25 118/63 (81) 98 10/03/18 02:00 105 25 110/71 (84) 98 10/03/18 01:05 87 27 40 10/03/18 01:00 94 27 106/67 (80) 97 10/03/18 00:11 101/67 10/03/18 00:00 109 10/03/18 00:00 Mechanical Ventilator 10/03/18 00:00 50 10/03/18 00:00 98.8 110 26 101/67 (78) 99 10/02/18 23:02 101 27 40 10/02/18 23:00 110 26 119/58 (78) 99 10/02/18 22:00 106 28 107/61 (76) 99 10/02/18 21:02 100.2 10/02/18 21:00 107 28 101/56 (71) 99 10/02/18 20:55 97 29 40 10/02/18 20:00 40 10/02/18 20:00 104 10/02/18 20:00 100.2 103 28 106/61 (76) 99 10/02/18 20:00 Mechanical Ventilator 10/02/18 19:08 102 28 40 10/02/18 19:00 101.0 103 27 118/63 (81) 99 10/02/18 18:00 99 28 107/61 (76) 99 10/02/18 17:05 113 27 40 10/02/18 17:00 98.8 99 26 116/56 (76) 99 10/02/18 16:00 50 10/02/18 16:00 105 10/02/18 16:00 Mechanical Ventilator 10/02/18 16:00 99 27 109/63 (78) 99 10/02/18 15:10 91 28 40 10/02/18 15:00 114 29 119/59 (79) 96 10/02/18 14:00 100 26 103/59 (74) 98 10/02/18 13:00 94 25 92/48 (63) 98 10/02/18 12:50 97 25 40 10/02/18 12:00 Mechanical Ventilator 10/02/18 12:00 99.9 100 22 83/52 (62) 99 10/02/18 12:00 91 10/02/18 12:00 50 Height (Feet): 5 Height (Inches): 6.00 Weight (Pounds): 157 Objective General Appearance: WD/WN, confused Lines, tubes and drains: peripheral HEENT: normocephalic, atraumatic Neck: non-tender, supple Respiratory/Chest: chest wall non-tender, lungs clear Cardiovascular/Chest: normal peripheral pulses Abdomen: normal bowel sounds Laboratory Tests Test 10/03/18 04:30 10/03/18 10:15 White Blood Count 13.4 K/UL (4.8-10.8) H Red Blood Count 2.94 M/UL (4.70-6.10) L Hemoglobin 9.3 G/DL (14.2-18.0) L Hematocrit 28.1 % (42.0-52.0) L Mean Corpuscular Volume 96 FL (80-99) Mean Corpuscular Hemoglobin 31.6 PG (27.0-31.0) H Mean Corpuscular Hemoglobin Concent 33.0 G/DL (32.0-36.0) Red Cell Distribution Width 16.2 % (11.6-14.8) H Platelet Count 150 K/UL (150-450) Mean Platelet Volume 10.4 FL (6.5-10.1) H Neutrophils (%) (Auto) % (45.0-75.0) Lymphocytes (%) (Auto) % (20.0-45.0) Monocytes (%) (Auto) % (1.0-10.0) Eosinophils (%) (Auto) % (0.0-3.0) Basophils (%) (Auto) % (0.0-2.0) Sodium Level 142 MMOL/L (136-145) Potassium Level 3.3 MMOL/L (3.5-5.1) L Chloride Level 109 MMOL/L (98-107) H Carbon Dioxide Level 22 MMOL/L (21-32) Anion Gap 11 mmol/L (5-15) Blood Urea Nitrogen 17 mg/dL (7-18) Creatinine 1.2 MG/DL (0.55-1.30) Estimat Glomerular Filtration Rate > 60 mL/min (>60) Glucose Level 107 MG/DL (74-106) H Calcium Level 7.6 MG/DL (8.5-10.1) L Phosphorus Level 3.0 MG/DL (2.5-4.9) Magnesium Level 1.5 MG/DL (1.8-2.4) L Total Bilirubin 0.5 MG/DL (0.2-1.0) Gamma Glutamyl Transpeptidase 35 U/L (5-85) Aspartate Amino Transf (AST/SGOT) 27 U/L (15-37) Alanine Aminotransferase (ALT/SGPT) 10 U/L (12-78) L Alkaline Phosphatase 93 U/L (46-116) Ammonia 15 umol/L (11-32) Troponin I 0.005 ng/mL (0.000-0.056) C-Reactive Protein, Quantitative 18.9 mg/dL (0.00-0.90) H Pro-B-Type Natriuretic Peptide 3074 pg/mL (0-125) H Total Protein 5.2 G/DL (6.4-8.2) L Albumin 1.5 G/DL (3.4-5.0) L Globulin 3.7 g/dL Albumin/Globulin Ratio 0.4 (1.0-2.7) L Arterial Blood pH 7.360 (7.350-7.450) Arterial Blood Partial Pressure CO2 38.8 mmHg (35.0-45.0) Arterial Blood Partial Pressure O2 65.3 mmHg (75.0-100.0) L Arterial Blood HCO3 21.4 mmol/L (22.0-26.0) L Arterial Blood Oxygen Saturation 91.5 % (95-100) L Arterial Blood Base Excess -3.7 (-2-2) L Blaine Test Positive Current Medications Medications (Trade) Dose Ordered Sig/Hoa Route PRN Reason Start Time Stop Time Status Last Admin Dose Admin Acetaminophen (Tylenol) 650 mg Q4H PRN ORAL fever (temp>100.5F) 09/28/18 03:45 10/26/18 19:44 10/02/18 20:19 Amiodarone HCl (Cordarone) 200 mg Q24H ORAL 10/02/18 20:00 11/01/18 19:59 10/02/18 20:19 Cefepime HCl 1 gm/ Dextrose 55 ml @ 110 mls/hr Q24H IVPB 09/29/18 17:00 10/06/18 16:59 10/02/18 17:57 Chlordiazepoxide (Librium) 25 mg Q6HR NG 10/01/18 12:30 10/08/18 12:29 10/03/18 06:39 Chlorhexidine Gluconate (Zainab-Hex 2%) 1 applic DAILY@2000 TOPIC 10/03/18 20:00 11/02/18 19:59 Dextrose (Dextrose 50%) 25 ml Q30M PRN IV Hypoglycemia 09/28/18 01:30 10/26/18 17:59 Dextrose (Dextrose 50%) 50 ml Q30M PRN IV Hypoglycemia 09/28/18 01:30 10/26/18 17:59 Dextrose/ Electrolytes 1,000 ml @ 75 mls/hr [id number] IV 10/01/18 08:15 10/31/18 08:14 10/03/18 03:26 Heparin Sodium/ Sodium Chloride (Heparin 1000 units/500ml Premix) 1,000 unit ONCE PRN IV picc line placement 10/03/18 10:30 10/04/18 10:29 Lidocaine HCl (Xylocaine 1% 30ml) 30 ml ONCE PRN INJ picc line placement 10/03/18 10:30 10/04/18 10:29 Lorazepam (Ativan 2mg/ml 1ml) 1 mg Q1H PRN IV agitation, cofusion, dt 09/28/18 12:45 10/05/18 12:44 10/02/18 09:41 Magnesium Sulfate 100 ml @ 100 mls/hr Q1H IVPB 10/03/18 09:30 10/03/18 13:29 10/03/18 10:35 Metoprolol Tartrate 5 mg/ Dextrose 60 ml @ 130 mls/hr Q6HR PRN IVPB hr greater than 118 09/28/18 09:30 10/28/18 09:29 10/01/18 02:20 Midazolam HCl (Versed 2mg/2ml vial) 1 mg Q1H PRN IVP Agitation 09/28/18 13:00 10/28/18 12:59 09/30/18 20:06 Morphine Sulfate (Morphine Sulfate) 4 mg Q2H PRN IV For Pain (7-10) 09/28/18 02:00 10/03/18 17:59 09/28/18 22:49 Norepinephrine Bitartrate 4 mg/ Dextrose 250 ml @ 0 mls/hr Q24H IV 09/29/18 00:30 10/29/18 00:29 09/30/18 03:01 Ondansetron HCl (Zofran) 4 mg Q6H PRN IVP Nausea & Vomiting 09/28/18 01:45 10/27/18 19:44 Pantoprazole (Protonix) 40 mg EVERY 12 HOURS IVP 09/29/18 21:00 10/29/18 20:59 10/03/18 08:11 Potassium Chloride 100 ml @ 50 mls/hr ONCE ONCE IVPB 10/03/18 10:30 10/03/18 12:29 10/03/18 10:52 Potassium Chloride 100 ml @ 50 mls/hr ONCE ONCE IVPB 10/03/18 12:30 10/03/18 14:29 Quetiapine Fumarate (SEROquel) 50 mg Q12HR ORAL 09/28/18 21:00 10/27/18 08:59 10/03/18 08:11 Temazepam (Restoril) 15 mg HSPRN PRN ORAL Insomnia 09/28/18 19:45 10/04/18 19:44 Thiamine HCl 100 mg/Dextrose 111 ml @ 220 mls/hr Q24H IVPB 09/28/18 11:00 10/28/18 10:59 10/03/18 10:34 Jes Taylor M.D. Oct 03, 2018 11:33
--- NOTE | 2018-10-03 12:10 | Diagnostic Imaging Report ---
Indication: Dyspnea Comparison: 10/02/2018 A single view chest radiograph was obtained. Findings: Extensive pulmonary opacities again demonstrated without significant change. Tubes and lines are stable. Heart size is stable. IMPRESSION: No change from the prior exam
[2018-10-03 13:34] LABS: APPEARANCE,URINE CLEAR; BILIRUBIN, URINE NEGATIVE (NEGATIVE); COLOR,URINE PALE YELLOW; GLUCOSE, URINE (UA) NEGATIVE (NEGATIVE); KETONES,URINE NEGATIVE (NEGATIVE); LEUKOCYTE ESTERASE ,URINE 2+ (NEGATIVE); NITRITE,URINE NEGATIVE (NEGATIVE); PH,URINE 6 (4.5-8.0); PROTEIN,URINE 2+ (NEGATIVE); UROBILINOGEN,URINE NORMAL MG/DL (0.0-1.0)
--- NOTE | 2018-10-03 13:37 | NUR ---
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 DEHYDRATION . HEMATURIA VS: BP 94/51, P 118, T 99.2, RR 26, SpO2 99 on VENT AC 16, TV 600, PEEP 5.0, FiO2 40 WBC 13.4, HgB 9.3, Hct 28.1, K 3.3, Mag. 1.5, URINE BLOOD 5+ CXR FINDINGS: Extensive pulmonary opacities again demonstrated without significant change. Tubes and lines are stable. Heart size is stable. IS:POTASSIUM CHLORIDE 100mL IVPB MAGNESIUM SULFATE 100ml IVPB AMIODARONE 200mg LIBRIUM 25mg NG D5/ELECTROLYTES x1L IV PROTONIX 40mg IVP SEROQUEL 50mg ICU STATUS
--- NOTE | 2018-10-03 13:49 | NUR ---
NURSE NOTES: Patient turned and repositioned.Mouth care done, HOB elevated at 35 degree to prevent aspiration.Kept clean dry and comfortable.
--- NOTE | 2018-10-03 15:43 | Diagnostic Imaging Report ---
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 The left upper extremity was prepped with alcohol. All elements of maximal sterile barrier technique were followed including usage of a cap, mask, sterile gown, sterile gloves, hand hygiene and a large sterile sheet. Sonographic evaluation of the upper extremity was performed demonstrating a patent and compressible basilic vein. Access was obtained under real-time ultrasound guidance (with utilization of sterile gel and sterile probe cover) and digital image was saved and archived. An .018 wire was introduced. Needle exchanged for a 5 Telugu peel-away sheath. Measurements were obtained. A 5 Telugu dual-lumen Power PICC line catheter was cut to 40 cm and introduced over the wire. Peel-away sheath and wire were removed.Catheter was secured to the skin using 2-0 Prolene suture. Both ports aspirate and flush easily. Post procedure chest x-ray demonstrates good position of the PICC line catheter within the SVC. Impression: Successful placement of an upper extremity PICC line catheter
--- NOTE | 2018-10-03 15:50 | NUR ---
NURSE NOTES: Patient turned and repositioned, mouth care done.HOB elevated at 35 degree to prevent aspiration.Kept clean and dry.Will continue to monitor
--- NOTE | 2018-10-03 15:51 | Nephrology Progress Note ---
Assessment/Plan Problem List: (1) ATN (acute tubular necrosis) (2) ARDS (adult respiratory distress syndrome) (3) Acute respiratory failure with hypoxemia Assessment (1) Acute respiratory failure with hypoxemia- On Vent (2) ARDS (adult respiratory distress syndrome) (3) ATN (acute tubular necrosis) (4) Delirium tremens (5) Rapid atrial fibrillation Plan start feeding by tube Vent support- Librium RTC Keep BP under control Avoid nephrotoxics monitor renal parameters Albumin boluses as needed k and phos and Mag as needed Subjective ROS Limited/Unobtainable: Yes Objective Objective Last 24 Hour Vital Signs Date Time Temp Pulse Resp B/P (MAP) Pulse Ox O2 Delivery O2 Flow Rate FiO2 10/03/18 15:00 89 22 108/65 (79) 99 10/03/18 14:30 86 25 40 10/03/18 14:00 80 22 105/60 (75) 98 10/03/18 13:00 84 22 97/61 (73) 100 10/03/18 12:30 104 23 40 10/03/18 12:00 Mechanical Ventilator 10/03/18 12:00 40 10/03/18 12:00 99.2 90 25 99/81 (87) 99 10/03/18 12:00 90 10/03/18 11:00 103 25 94/51 (65) 98 10/03/18 10:35 118 24 40 10/03/18 10:00 107 26 117/50 (72) 98 10/03/18 09:41 105 33 40 40 10/03/18 09:09 97 10/03/18 09:09 91 31 40 40 10/03/18 09:00 102 26 115/59 (77) 99 10/03/18 08:00 Mechanical Ventilator 10/03/18 08:00 40 10/03/18 08:00 104 10/03/18 08:00 98.6 99 24 120/67 (84) 99 10/03/18 07:09 104 25 40 10/03/18 07:00 105 26 149/81 (103) 99 10/03/18 06:00 110 26 149/81 (103) 99 10/03/18 05:26 117 26 40 10/03/18 05:00 107 26 121/57 (78) 99 10/03/18 04:00 50 10/03/18 04:00 99.0 108 25 120/70 (87) 98 10/03/18 04:00 Mechanical Ventilator 10/03/18 04:00 118 10/03/18 03:00 121 25 40 10/03/18 03:00 114 25 118/63 (81) 98 10/03/18 02:00 105 25 110/71 (84) 98 10/03/18 01:05 87 27 40 10/03/18 01:00 94 27 106/67 (80) 97 10/03/18 00:11 101/67 10/03/18 00:00 109 10/03/18 00:00 Mechanical Ventilator 10/03/18 00:00 50 10/03/18 00:00 98.8 110 26 101/67 (78) 99 10/02/18 23:02 101 27 40 10/02/18 23:00 110 26 119/58 (78) 99 10/02/18 22:00 106 28 107/61 (76) 99 10/02/18 21:02 100.2 10/02/18 21:00 107 28 101/56 (71) 99 10/02/18 20:55 97 29 40 10/02/18 20:00 40 10/02/18 20:00 104 10/02/18 20:00 100.2 103 28 106/61 (76) 99 10/02/18 20:00 Mechanical Ventilator 10/02/18 19:08 102 28 40 10/02/18 19:00 101.0 103 27 118/63 (81) 99 10/02/18 18:00 99 28 107/61 (76) 99 10/02/18 17:05 113 27 40 10/02/18 17:00 98.8 99 26 116/56 (76) 99 10/02/18 16:00 50 10/02/18 16:00 105 10/02/18 16:00 Mechanical Ventilator 10/02/18 16:00 99 27 109/63 (78) 99 Intake and Output 10/02/18 10/03/18 18:59 06:59 Intake Total 1642.53 ml 1480 ml Output Total 845 ml 1010 ml Balance 797.53 ml 470 ml Intake Free Water 150 ml IV Total 1542.53 ml 900 ml Tube Feeding 100 ml 430 ml Output Urine Total 845 ml 1010 ml # Bowel Movements 1 Laboratory Tests 10/03/18 04:30: White Blood Count 13.4H, Red Blood Count 2.94L, Hemoglobin 9.3L, Hematocrit 28.1L, Mean Corpuscular Volume 96, Mean Corpuscular Hemoglobin 31.6H, Mean Corpuscular Hemoglobin Concent 33.0, Red Cell Distribution Width 16.2H, Platelet Count 150, Mean Platelet Volume 10.4H, Neutrophils (%) (Auto) , Lymphocytes (%) (Auto) , Monocytes (%) (Auto) , Eosinophils (%) (Auto) , Basophils (%) (Auto) , Sodium Level 142, Potassium Level 3.3L, Chloride Level 109H, Carbon Dioxide Level 22, Anion Gap 11, Blood Urea Nitrogen 17, Creatinine 1.2, Estimat Glomerular Filtration Rate > 60, Glucose Level 107H, Calcium Level 7.6L, Phosphorus Level 3.0, Magnesium Level 1.5L, Total Bilirubin 0.5, Gamma Glutamyl Transpeptidase 35, Aspartate Amino Transf (AST/SGOT) 27, Alanine Aminotransferase (ALT/SGPT) 10L, Alkaline Phosphatase 93, Ammonia 15, Troponin I 0.005, C-Reactive Protein, Quantitative 18.9H, Pro-B-Type Natriuretic Peptide 3074H, Total Protein 5.2L, Albumin 1.5L, Globulin 3.7, Albumin/Globulin Ratio 0.4L 10/03/18 10:15: Arterial Blood pH 7.360, Arterial Blood Partial Pressure CO2 38.8, Arterial Blood Partial Pressure O2 65.3L, Arterial Blood HCO3 21.4L, Arterial Blood Oxygen Saturation 91.5L, Arterial Blood Base Excess -3.7L, Blaine Test Positive 10/03/18 12:00: Urine Color Pale yellow, Urine Appearance Clear, Urine pH 6, Urine Specific [place] 1.010, Urine Protein 2+H, Urine Glucose (UA) Negative, Urine Ketones Negative, Urine Blood 5+H, Urine Nitrite Negative, Urine Bilirubin Negative, Urine Urobilinogen Normal, Urine Leukocyte Esterase 2+H, Urine RBC 2-4H, Urine WBC 5-10H, Urine Squamous Epithelial Cells Occasional, Urine Bacteria Occasional Height (Feet): 5 Height (Inches): 6.00 Weight (Pounds): 157 EENT: other - on vent Cardiovascular: bradycardia Respiratory/Chest: decreased breath sounds Abdomen: distended Kaden Cordova MD Oct 03, 2018 15:51
[2018-10-03] MEDS: Cefepime HCl 1 GM in D5W 55 ML IVPB SCH (17:32)
--- NOTE | 2018-10-03 17:40 | NUR ---
NURSE NOTES: Adls done,mouth care provided,turned and repositioned for skin management.Kept clean dry and comfortable
--- NOTE | 2018-10-03 19:07 | NUR ---
HAND-OFF: Report given to YING Tellez.
--- NOTE | 2018-10-03 19:10 | Cardiology Progress Note ---
Assessment/Plan Assessment/Plan tachy ? 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 wean for 2 hours cxr looks better to me sicne 09/30 Subjective ROS Limited/Unobtainable: Yes Subjective intuabeted awke but not reasly respond Objective Last 24 Hour Vital Signs Date Time Temp Pulse Resp B/P (MAP) Pulse Ox O2 Delivery O2 Flow Rate FiO2 10/03/18 19:00 83 20 40 10/03/18 19:00 88 21 105/60 (75) 100 10/03/18 18:00 88 23 111/68 (82) 99 10/03/18 17:08 79 22 40 10/03/18 17:00 89 26 102/62 (75) 99 10/03/18 16:00 95 10/03/18 16:00 Mechanical Ventilator 10/03/18 16:00 98.8 81 21 109/72 (84) 99 10/03/18 16:00 40 10/03/18 15:00 89 22 108/65 (79) 99 10/03/18 14:30 86 25 40 10/03/18 14:00 80 22 105/60 (75) 98 10/03/18 13:00 84 22 97/61 (73) 100 10/03/18 12:30 104 23 40 10/03/18 12:00 Mechanical Ventilator 10/03/18 12:00 40 10/03/18 12:00 99.2 90 25 99/81 (87) 99 10/03/18 12:00 90 10/03/18 11:00 103 25 94/51 (65) 98 10/03/18 10:35 118 24 40 10/03/18 10:00 107 26 117/50 (72) 98 10/03/18 09:41 105 33 40 40 10/03/18 09:09 97 10/03/18 09:09 91 31 40 40 10/03/18 09:00 102 26 115/59 (77) 99 10/03/18 08:00 Mechanical Ventilator 10/03/18 08:00 40 10/03/18 08:00 104 10/03/18 08:00 98.6 99 24 120/67 (84) 99 10/03/18 07:09 104 25 40 10/03/18 07:00 105 26 149/81 (103) 99 10/03/18 06:00 110 26 149/81 (103) 99 10/03/18 05:26 117 26 40 10/03/18 05:00 107 26 121/57 (78) 99 10/03/18 04:00 50 10/03/18 04:00 99.0 108 25 120/70 (87) 98 10/03/18 04:00 Mechanical Ventilator 10/03/18 04:00 118 10/03/18 03:00 121 25 40 10/03/18 03:00 114 25 118/63 (81) 98 10/03/18 02:00 105 25 110/71 (84) 98 10/03/18 01:05 87 27 40 10/03/18 01:00 94 27 106/67 (80) 97 10/03/18 00:11 101/67 10/03/18 00:00 109 10/03/18 00:00 Mechanical Ventilator 10/03/18 00:00 50 10/03/18 00:00 98.8 110 26 101/67 (78) 99 10/02/18 23:02 101 27 40 10/02/18 23:00 110 26 119/58 (78) 99 10/02/18 22:00 106 28 107/61 (76) 99 10/02/18 21:02 100.2 10/02/18 21:00 107 28 101/56 (71) 99 10/02/18 20:55 97 29 40 10/02/18 20:00 40 10/02/18 20:00 104 10/02/18 20:00 100.2 103 28 106/61 (76) 99 10/02/18 20:00 Mechanical Ventilator General Appearance: no apparent distress, alert, on vent Neck: no JVD Cardiovascular: normal rate Respiratory/Chest: crackles/rales Abdomen: normal bowel sounds, non tender, soft Extremities: no swelling Intake and Output 10/02/18 10/03/18 19:00 07:00 Intake Total 1625.86 ml 1520 ml Output Total 745 ml 1085 ml Balance 880.86 ml 435 ml Intake Free Water 150 ml IV Total 1525.86 ml 900 ml Tube Feeding 100 ml 470 ml Output Urine Total 745 ml 1085 ml # Bowel Movements 1 Laboratory Tests Test 10/03/18 04:30 10/03/18 10:15 10/03/18 12:00 White Blood Count 13.4 K/UL (4.8-10.8) H Red Blood Count 2.94 M/UL (4.70-6.10) L Hemoglobin 9.3 G/DL (14.2-18.0) L Hematocrit 28.1 % (42.0-52.0) L Mean Corpuscular Volume 96 FL (80-99) Mean Corpuscular Hemoglobin 31.6 PG (27.0-31.0) H Mean Corpuscular Hemoglobin Concent 33.0 G/DL (32.0-36.0) Red Cell Distribution Width 16.2 % (11.6-14.8) H Platelet Count 150 K/UL (150-450) Mean Platelet Volume 10.4 FL (6.5-10.1) H Neutrophils (%) (Auto) % (45.0-75.0) Lymphocytes (%) (Auto) % (20.0-45.0) Monocytes (%) (Auto) % (1.0-10.0) Eosinophils (%) (Auto) % (0.0-3.0) Basophils (%) (Auto) % (0.0-2.0) Sodium Level 142 MMOL/L (136-145) Potassium Level 3.3 MMOL/L (3.5-5.1) L Chloride Level 109 MMOL/L (98-107) H Carbon Dioxide Level 22 MMOL/L (21-32) Anion Gap 11 mmol/L (5-15) Blood Urea Nitrogen 17 mg/dL (7-18) Creatinine 1.2 MG/DL (0.55-1.30) Estimat Glomerular Filtration Rate > 60 mL/min (>60) Glucose Level 107 MG/DL (74-106) H Calcium Level 7.6 MG/DL (8.5-10.1) L Phosphorus Level 3.0 MG/DL (2.5-4.9) Magnesium Level 1.5 MG/DL (1.8-2.4) L Total Bilirubin 0.5 MG/DL (0.2-1.0) Gamma Glutamyl Transpeptidase 35 U/L (5-85) Aspartate Amino Transf (AST/SGOT) 27 U/L (15-37) Alanine Aminotransferase (ALT/SGPT) 10 U/L (12-78) L Alkaline Phosphatase 93 U/L (46-116) Ammonia 15 umol/L (11-32) Troponin I 0.005 ng/mL (0.000-0.056) C-Reactive Protein, Quantitative 18.9 mg/dL (0.00-0.90) H Pro-B-Type Natriuretic Peptide 3074 pg/mL (0-125) H Total Protein 5.2 G/DL (6.4-8.2) L Albumin 1.5 G/DL (3.4-5.0) L Globulin 3.7 g/dL Albumin/Globulin Ratio 0.4 (1.0-2.7) L Arterial Blood pH 7.360 (7.350-7.450) Arterial Blood Partial Pressure CO2 38.8 mmHg (35.0-45.0) Arterial Blood Partial Pressure O2 65.3 mmHg (75.0-100.0) L Arterial Blood HCO3 21.4 mmol/L (22.0-26.0) L Arterial Blood Oxygen Saturation 91.5 % (95-100) L Arterial Blood Base Excess -3.7 (-2-2) L Blaine Test Positive Urine Color Pale yellow Urine Appearance Clear Urine pH 6 (4.5-8.0) Urine Specific [place] 1.010 (1.005-1.035) Urine Protein 2+ (NEGATIVE) H Urine Glucose (UA) Negative (NEGATIVE) Urine Ketones Negative (NEGATIVE) Urine Blood 5+ (NEGATIVE) H Urine Nitrite Negative (NEGATIVE) Urine Bilirubin Negative (NEGATIVE) Urine Urobilinogen Normal MG/DL (0.0-1.0) Urine Leukocyte Esterase 2+ (NEGATIVE) H Urine RBC 2-4 /HPF (0 - 0) H Urine WBC 5-10 /HPF (0 - 0) H Urine Squamous Epithelial Cells Occasional /LPF Urine Bacteria Occasional /HPF (NONE) Mumtaz Leon MD Oct 03, 2018 19:10
--- NOTE | 2018-10-03 19:10 | NUR ---
NURSE NOTES: SEEN THE PATIENT BY DR. FREEMAN, NO NEW ORDER STATUS.
--- NOTE | 2018-10-03 19:40 | NUR ---
NURSE NOTES: PATIENT ALERT, ABLE TO EYE CONTACT, FOLLOW COMMANDS STATUS, ON ETT TO VENT AC16/TV600/FIO2 40%/PEEP 5, SATURATION 98% NOTED, RIGHT NARES NGT INTACT AND PATENT, ONGOING JEVITY 1.2 AT 40ML/HR, NO RESIDUE NOTED, ABDOMEN SOFT, F/C INTACT AND PATENT, YELLOW COLOR URINE DRAINING WELL GRAVITY, PICC LINE TO LEFT UPPER ARM, INTACT AND PATENT, ONGOING D5W W/ KCL 20MEQ AT 75ML/HR VIA PICC LINE, 2 POINT SOFT RESTRAINTS FOR SAFETY, HOB 30 DEGREE STATUS, MADE LOWER BED POSITION AND PROVIDED CALL LIGHT WITHIN REACH, WILL CONTINUE TO MONITOR.
[2018-10-03] MEDS: Dyna-Hex 2% Top Sol 2oz TOPIC SCH (19:42)
[2018-10-03] MEDS: Amiodarone 200mg tab ORAL SCH (19:43)
--- NOTE | 2018-10-03 19:52 | Internal Med Progress Note ---
Subjective Date of Service: Oct 03, 2018 Physician Name Sanford Castellano Attending Physician Benjamin Sterling MD Current Medications Medications (Trade) Dose Ordered Sig/Hoa Route PRN Reason Start Time Stop Time Status Last Admin Dose Admin Acetaminophen (Tylenol) 650 mg Q4H PRN ORAL fever (temp>100.5F) 09/28/18 03:45 10/26/18 19:44 10/02/18 20:19 Amiodarone HCl (Cordarone) 200 mg Q24H ORAL 10/02/18 20:00 11/01/18 19:59 10/03/18 19:43 Cefepime HCl 1 gm/ Dextrose 55 ml @ 110 mls/hr Q24H IVPB 09/29/18 17:00 10/06/18 16:59 10/03/18 17:32 Chlordiazepoxide (Librium) 25 mg Q6HR NG 10/01/18 12:30 10/08/18 12:29 10/03/18 17:31 Chlorhexidine Gluconate (Zainab-Hex 2%) 1 applic DAILY@2000 TOPIC 10/03/18 20:00 11/02/18 19:59 10/03/18 19:42 Dextrose (Dextrose 50%) 25 ml Q30M PRN IV Hypoglycemia 09/28/18 01:30 10/26/18 17:59 Dextrose (Dextrose 50%) 50 ml Q30M PRN IV Hypoglycemia 09/28/18 01:30 10/26/18 17:59 Dextrose/ Electrolytes 1,000 ml @ 75 mls/hr [id number] IV 10/01/18 08:15 10/31/18 08:14 10/03/18 19:43 Heparin Sodium/ Sodium Chloride (Heparin 1000 units/500ml Premix) 1,000 unit ONCE PRN IV picc line placement 10/03/18 10:30 10/04/18 10:29 Lidocaine HCl (Xylocaine 1% 30ml) 30 ml ONCE PRN INJ picc line placement 10/03/18 10:30 10/04/18 10:29 Lorazepam (Ativan 2mg/ml 1ml) 1 mg Q1H PRN IV agitation, cofusion, dt 09/28/18 12:45 10/05/18 12:44 10/02/18 09:41 Metoprolol Tartrate 5 mg/ Dextrose 60 ml @ 130 mls/hr Q6HR PRN IVPB hr greater than 118 09/28/18 09:30 10/28/18 09:29 10/01/18 02:20 Midazolam HCl (Versed 2mg/2ml vial) 1 mg Q1H PRN IVP Agitation 09/28/18 13:00 10/28/18 12:59 09/30/18 20:06 Norepinephrine Bitartrate 4 mg/ Dextrose 250 ml @ 0 mls/hr Q24H IV 09/29/18 00:30 10/29/18 00:29 09/30/18 03:01 Ondansetron HCl (Zofran) 4 mg Q6H PRN IVP Nausea & Vomiting 09/28/18 01:45 10/27/18 19:44 Pantoprazole (Protonix) 40 mg EVERY 12 HOURS IVP 09/29/18 21:00 10/29/18 20:59 10/03/18 08:11 Quetiapine Fumarate (SEROquel) 50 mg Q12HR ORAL 09/28/18 21:00 10/27/18 08:59 10/03/18 08:11 Temazepam (Restoril) 15 mg HSPRN PRN ORAL Insomnia 09/28/18 19:45 10/04/18 19:44 Thiamine HCl 100 mg/Dextrose 111 ml @ 220 mls/hr Q24H IVPB 09/28/18 11:00 10/28/18 10:59 10/03/18 10:34 Allergies: Coded Allergies: No Known Allergies (Unverified , 09/06/15) ROS Limited/Unobtainable: Yes Subjective 68 YO M admitted with hematuria and hypotension. Now atrial fibrillation with rapid ventricular rate. Cover for Int Ash-Dr Sterling. ICU. Intubated and sedated Objective Last Vital Signs Date Time Temp Pulse Resp B/P (MAP) Pulse Ox O2 Delivery O2 Flow Rate FiO2 10/03/18 19:00 83 20 40 10/03/18 19:00 105/60 (75) 100 10/03/18 16:00 Mechanical Ventilator 10/03/18 16:00 98.8 09/29/18 00:00 15.0 Laboratory Tests Test 10/03/18 04:30 10/03/18 10:15 10/03/18 12:00 White Blood Count 13.4 K/UL (4.8-10.8) H Red Blood Count 2.94 M/UL (4.70-6.10) L Hemoglobin 9.3 G/DL (14.2-18.0) L Hematocrit 28.1 % (42.0-52.0) L Mean Corpuscular Volume 96 FL (80-99) Mean Corpuscular Hemoglobin 31.6 PG (27.0-31.0) H Mean Corpuscular Hemoglobin Concent 33.0 G/DL (32.0-36.0) Red Cell Distribution Width 16.2 % (11.6-14.8) H Platelet Count 150 K/UL (150-450) Mean Platelet Volume 10.4 FL (6.5-10.1) H Neutrophils (%) (Auto) % (45.0-75.0) Lymphocytes (%) (Auto) % (20.0-45.0) Monocytes (%) (Auto) % (1.0-10.0) Eosinophils (%) (Auto) % (0.0-3.0) Basophils (%) (Auto) % (0.0-2.0) Sodium Level 142 MMOL/L (136-145) Potassium Level 3.3 MMOL/L (3.5-5.1) L Chloride Level 109 MMOL/L (98-107) H Carbon Dioxide Level 22 MMOL/L (21-32) Anion Gap 11 mmol/L (5-15) Blood Urea Nitrogen 17 mg/dL (7-18) Creatinine 1.2 MG/DL (0.55-1.30) Estimat Glomerular Filtration Rate > 60 mL/min (>60) Glucose Level 107 MG/DL (74-106) H Calcium Level 7.6 MG/DL (8.5-10.1) L Phosphorus Level 3.0 MG/DL (2.5-4.9) Magnesium Level 1.5 MG/DL (1.8-2.4) L Total Bilirubin 0.5 MG/DL (0.2-1.0) Gamma Glutamyl Transpeptidase 35 U/L (5-85) Aspartate Amino Transf (AST/SGOT) 27 U/L (15-37) Alanine Aminotransferase (ALT/SGPT) 10 U/L (12-78) L Alkaline Phosphatase 93 U/L (46-116) Ammonia 15 umol/L (11-32) Troponin I 0.005 ng/mL (0.000-0.056) C-Reactive Protein, Quantitative 18.9 mg/dL (0.00-0.90) H Pro-B-Type Natriuretic Peptide 3074 pg/mL (0-125) H Total Protein 5.2 G/DL (6.4-8.2) L Albumin 1.5 G/DL (3.4-5.0) L Globulin 3.7 g/dL Albumin/Globulin Ratio 0.4 (1.0-2.7) L Arterial Blood pH 7.360 (7.350-7.450) Arterial Blood Partial Pressure CO2 38.8 mmHg (35.0-45.0) Arterial Blood Partial Pressure O2 65.3 mmHg (75.0-100.0) L Arterial Blood HCO3 21.4 mmol/L (22.0-26.0) L Arterial Blood Oxygen Saturation 91.5 % (95-100) L Arterial Blood Base Excess -3.7 (-2-2) L Blaine Test Positive Urine Color Pale yellow Urine Appearance Clear Urine pH 6 (4.5-8.0) Urine Specific [place] 1.010 (1.005-1.035) Urine Protein 2+ (NEGATIVE) H Urine Glucose (UA) Negative (NEGATIVE) Urine Ketones Negative (NEGATIVE) Urine Blood 5+ (NEGATIVE) H Urine Nitrite Negative (NEGATIVE) Urine Bilirubin Negative (NEGATIVE) Urine Urobilinogen Normal MG/DL (0.0-1.0) Urine Leukocyte Esterase 2+ (NEGATIVE) H Urine RBC 2-4 /HPF (0 - 0) H Urine WBC 5-10 /HPF (0 - 0) H Urine Squamous Epithelial Cells Occasional /LPF Urine Bacteria Occasional /HPF (NONE) Intake and Output 10/02/18 10/03/18 19:00 07:00 Intake Total 1625.86 ml 1520 ml Output Total 745 ml 1085 ml Balance 880.86 ml 435 ml Intake Free Water 150 ml IV Total 1525.86 ml 900 ml Tube Feeding 100 ml 470 ml Output Urine Total 745 ml 1085 ml # Bowel Movements 1 Objective General Appearance: WD/WN, no apparent distress, alert EENT: PERRL/EOMI, normal ENT inspection, TMs normal Neck: non-tender, normal alignment, supple, normal inspection Cardiovascular: Tachy; irreg/irreg; normal peripheral pulses, normal rate, no gallop/murmur, no JVD Respiratory/Chest: Mech vent; chest wall non-tender, lungs clear, coarse upper breath sounds, no respiratory distress, no accessory muscle use Abdomen: normal bowel sounds, non tender, soft, no organomegaly, no mass Extremities: normal range of motion, non-tender 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 Atrial fibrillation with rapid ventricular rate 6. Respiratory failure/ARDS Assessment/Plan fernandez cultures iv abx banana bag Librium, Seroquel and Klonipin iv abx, ID evaluation Metoprolol drip per Cardiology ICU status Cont mech vent per pulmonary Abx=Cefepime Sanford Castellano MD Oct 03, 2018 19:52
[2018-10-03] MEDS ORDERED: Amiodarone 200mg tab ORAL SCH (20:00)
[2018-10-03] MEDS: LORazepam Inj 2mg/ml 1ml IV PRN (20:41)
--- NOTE | 2018-10-03 20:41 | NUR ---
NURSE NOTES: PATIENT IMPULSIVE AND AGITATED, DID NOT FOLLOWED COMMANDS STATUS THAT SECURED 2 POINT SOFT RESTRAINTS AND GIVEN ATIVAN 1MG BY IVP SLOWLY PRN ORDERED, WILL CONTINUE TO MONITOR.
--- NOTE | 2018-10-03 22:45 | NUR ---
NURSE NOTES: PATIENT ASLEEP STATUS, NO PAIN OR DISTRESS NOTED AT THIS TIME.
--- NOTE | 2018-10-03 23:40 | NUR ---
NURSE NOTES: PATIENT AWOKE, RESTLESS STATUS, ORAL CARE WAS DONE, GIVEN RESTORIL 15MG VIA NGT PRN ORDERED, WILL CONTINUE TO MONITOR.
[2018-10-04] VITALS (24 sets, daily range): BP systolic 90–130; BP diastolic 45–82
--- NOTE | 2018-10-04 02:00 | NUR ---
NURSE NOTES: RELEASED RESTRAINTS AND REAPPLIED FOR SAFETY, REPOSITIONED AND ORAL CARE WAS DONE.
--- NOTE | 2018-10-04 04:00 | NUR ---
NURSE NOTES: MORNING CARE WAS DONE, NO BOWEL MOVEMENT AT THIS TIME.
[2018-10-04] MEDS: chlordiazePOXIDE 25mg Cap NG SCH ×3 (05:44→17:52)
--- NOTE | 2018-10-04 06:03 | NUR ---
NURSE NOTES: PATIENT CALM, NO ACUTE DISTRESS NOTED AT THIS SHIFT.
--- NOTE | 2018-10-04 07:00 | NUR ---
Received Patient on AVCV RR 16, VT 600, FIO2 40%, PEEP +5. Breath sounds reveal bilateral diminished rhonchi. Suction thick white clear secretions as needed. Patient alert and awake, lying in bed. Patient intubated with a 7.5 ETT at 23cm at the lip. Ambu Bag at bedside. Alarms on and audible. Will continue to monitor patient throughout the day.
[2018-10-04 07:09] LABS: HEMATOCRIT 26.9 % (42.0-52.0); HEMOGLOBIN 8.9 G/DL (14.2-18.0); MEAN CORPUSCULAR VOLUME 95 FL (80-99); PLATELET COUNT 196 K/UL (150-450); RED BLOOD COUNT 2.83 M/UL (4.70-6.10); RED CELL DISTRIBUTION WIDTH 16.2 % (11.6-14.8); WHITE BLOOD COUNT 15.5 K/UL (4.8-10.8)
[2018-10-04 07:21] LABS: ALANINE AMINOTRANSFERASE 11 U/L (12-78); ALBUMIN 1.4 G/DL (3.4-5.0); ALBUMIN/GLOBULIN RATIO 0.4 (1.0-2.7); ALKALINE PHOSPHATASE 88 U/L (46-116); ANION GAP 7 mmol/L (5-15); ASPARTATE AMINO TRANSFERASE 19 U/L (15-37); BILIRUBIN,TOTAL 0.4 MG/DL (0.2-1.0); BLOOD UREA NITROGEN 13 mg/dL (7-18); CALCIUM 7.3 MG/DL (8.5-10.1); CARBON DIOXIDE 24 MMOL/L (21-32); CHLORIDE 108 MMOL/L (98-107); POTASSIUM 3.8 MMOL/L (3.5-5.1); SODIUM 139 MMOL/L (136-145)
--- NOTE | 2018-10-04 07:29 | NUR ---
HAND-OFF: Report given to YING URENA.
--- NOTE | 2018-10-04 07:31 | NUR ---
NURSE NOTES: Patient was received from YING Tellez. Aleep easily arousal tactile and verbal stimuli, no fever noted.Remains orally intubated 7.11/27 Ac 16 Vt600 Fio2 40 Peep 5 and saturate at 100% at this time.No ROCKY PICC with LORNA patent, dressing clean and intact running D5W with 20KCL at 75cc/hr.Mouth care done,turned and repositioned.HOB elevated to prevent aspiration.Call light within easy reach at all the times.Will continue to monitor.
[2018-10-04] MEDS: Pantoprazole Inj IVP SCH ×2 (08:41→20:07)
--- NOTE | 2018-10-04 09:05 | NUR ---
Weaning criteria passed, SBT started. Placed patient on PS +8, PEEP +5, FIO2 40%. Patient currently tolerating well. Will continue to monitor.
--- NOTE | 2018-10-04 09:10 | NUR ---
NURSE NOTES: Feeding held and weaning started.On CPAP PS 8 Peep 5 FiO2 40%.Tolerate well at this time.Deep breathing exercises teaching provided.Kept clean and dry.HOB elevated to prevent aspiration.Will continue to monitor
--- NOTE | 2018-10-04 09:15 | Infectious Diseases Prog Note ---
Assessment/Plan Assessment/Plan Sepsis/Septic shock- now off pressors -Bcx Neg Probable UTI -u/a wbc 15-20, nit neg, leuk +3; ucx Morganella morganni (R ancef, amp; otherwise S) Fever- probable multifactorial 2ry to alcohol withdrawal, UTI- r/o bacteremia, Cdiff, JUSTIN Leukocytosis, mild recurrent Etoh intoxication- now ETOH withdrawal w/ DT Acute respiratory failure/ ARDS s/p intubation -CXR Extensive airspace disease again demonstrated without change. Thrombocytopenia- probably in the setting of sepsis and bone marrow suppression 2ry to EtOH Afib w/ RVR KARLA, improving EtOH abuse, nephrolithiasis Plan: -Continue Cefepime #5 (abx d #02/14) to cover for probable Amp-C Morganella - Add empiric IV Vancomycin given fever and leukocytosis -09/29 SP Ceftriaxone #4 -09/26 SP Zosyn x1 -Bcxx 2, u/a w/ reflex, sp cx, Cdiff -f.u cx -Monitor CBC/CMP, temperatures -aspiration precautions -ETT/ICU care Will continue to follow along with you. Subjective Allergies: Coded Allergies: No Known Allergies (Unverified , 09/06/15) Subjective Afebrile 24hr Increasing leukocytosis Objective Vital Signs Last 24 Hour Vital Signs Date Time Temp Pulse Resp B/P (MAP) Pulse Ox O2 Delivery O2 Flow Rate FiO2 10/04/18 08:57 89 36 40 40 10/04/18 07:00 95 26 107/61 (76) 100 10/04/18 06:59 102 28 40 10/04/18 06:00 89 26 93/57 (69) 100 10/04/18 05:14 80 23 40 10/04/18 05:00 82 25 97/62 (74) 100 10/04/18 04:00 Mechanical Ventilator 10/04/18 04:00 98.9 95 25 94/55 (68) 100 10/04/18 04:00 40 10/04/18 03:36 92 10/04/18 03:00 98 26 110/54 (72) 100 10/04/18 02:45 86 24 40 10/04/18 02:00 96 26 93/53 (66) 100 10/04/18 01:00 91 26 118/82 (94) 97 10/04/18 00:57 81 26 40 10/04/18 00:30 118/82 10/04/18 00:00 98.9 91 25 98/58 (71) 100 10/04/18 00:00 Mechanical Ventilator 10/04/18 00:00 40 10/03/18 23:41 101 10/03/18 23:10 96 28 40 10/03/18 23:00 92 26 114/67 (83) 99 10/03/18 22:00 87 26 100/61 (74) 100 10/03/18 21:02 108 24 40 10/03/18 21:00 103 29 127/54 (78) 99 10/03/18 20:00 40 10/03/18 20:00 97.9 93 29 113/79 (90) 98 10/03/18 20:00 Mechanical Ventilator 10/03/18 19:11 91 10/03/18 19:00 83 20 40 10/03/18 19:00 88 21 105/60 (75) 100 10/03/18 18:00 88 23 111/68 (82) 99 10/03/18 17:08 79 22 40 10/03/18 17:00 89 26 102/62 (75) 99 10/03/18 16:00 95 10/03/18 16:00 Mechanical Ventilator 10/03/18 16:00 98.8 81 21 109/72 (84) 99 10/03/18 16:00 40 10/03/18 15:00 89 22 108/65 (79) 99 10/03/18 14:30 86 25 40 10/03/18 14:00 80 22 105/60 (75) 98 10/03/18 13:00 84 22 97/61 (73) 100 10/03/18 12:30 104 23 40 10/03/18 12:00 Mechanical Ventilator 10/03/18 12:00 40 10/03/18 12:00 99.2 90 25 99/81 (87) 99 10/03/18 12:00 90 10/03/18 11:00 103 25 94/51 (65) 98 10/03/18 10:35 118 24 40 10/03/18 10:00 107 26 117/50 (72) 98 10/03/18 09:41 105 33 40 40 Height (Feet): 5 Height (Inches): 6.00 Weight (Pounds): 157 Objective GeneralNAD, On Vent 40% HEENT: normocephalic, atraumatic, EOMI Respiratory/Chest: Coarse B/L Cardiovascular/Chest: RRR, S1, S2 Abdomen: Soft, Normal bowel sounds Microbiology Date/Time Source Procedure Growth Status 10/03/18 12:00 Stool Clostridium difficile Toxin Assay - Final Complete Laboratory Tests Test 10/03/18 10:15 10/03/18 12:00 10/04/18 04:50 Arterial Blood pH 7.360 (7.350-7.450) Arterial Blood Partial Pressure CO2 38.8 mmHg (35.0-45.0) Arterial Blood Partial Pressure O2 65.3 mmHg (75.0-100.0) L Arterial Blood HCO3 21.4 mmol/L (22.0-26.0) L Arterial Blood Oxygen Saturation 91.5 % (95-100) L Arterial Blood Base Excess -3.7 (-2-2) L [place] Test Positive Urine Color Pale yellow Urine Appearance Clear Urine pH 6 (4.5-8.0) Urine Specific [place] 1.010 (1.005-1.035) Urine Protein 2+ (NEGATIVE) H Urine Glucose (UA) Negative (NEGATIVE) Urine Ketones Negative (NEGATIVE) Urine Blood 5+ (NEGATIVE) H Urine Nitrite Negative (NEGATIVE) Urine Bilirubin Negative (NEGATIVE) Urine Urobilinogen Normal MG/DL (0.0-1.0) Urine Leukocyte Esterase 2+ (NEGATIVE) H Urine RBC 2-4 /HPF (0 - 0) H Urine WBC 5-10 /HPF (0 - 0) H Urine Squamous Epithelial Cells Occasional /LPF Urine Bacteria Occasional /HPF (NONE) White Blood Count 15.5 K/UL (4.8-10.8) H Red Blood Count 2.83 M/UL (4.70-6.10) L Hemoglobin 8.9 G/DL (14.2-18.0) L Hematocrit 26.9 % (42.0-52.0) L Mean Corpuscular Volume 95 FL (80-99) Mean Corpuscular Hemoglobin 31.4 PG (27.0-31.0) H Mean Corpuscular Hemoglobin Concent 33.0 G/DL (32.0-36.0) Red Cell Distribution Width 16.2 % (11.6-14.8) H Platelet Count 196 K/UL (150-450) Mean Platelet Volume 10.1 FL (6.5-10.1) Neutrophils (%) (Auto) % (45.0-75.0) Lymphocytes (%) (Auto) % (20.0-45.0) Monocytes (%) (Auto) % (1.0-10.0) Eosinophils (%) (Auto) % (0.0-3.0) Basophils (%) (Auto) % (0.0-2.0) Differential Total Cells Counted 100 Neutrophils % (Manual) 85 % (45-75) H Lymphocytes % (Manual) 6 % (20-45) L Monocytes % (Manual) 6 % (1-10) Eosinophils % (Manual) 2 % (0-3) Basophils % (Manual) 0 % (0-2) Band Neutrophils 1 % (0-8) Platelet Estimate Adequate Platelet Morphology Normal Hypochromasia 2+ Anisocytosis 1+ Sodium Level 139 MMOL/L (136-145) Potassium Level 3.8 MMOL/L (3.5-5.1) Chloride Level 108 MMOL/L (98-107) H Carbon Dioxide Level 24 MMOL/L (21-32) Anion Gap 7 mmol/L (5-15) Blood Urea Nitrogen 13 mg/dL (7-18) Creatinine 1.0 MG/DL (0.55-1.30) Estimat Glomerular Filtration Rate > 60 mL/min (>60) Glucose Level 115 MG/DL (74-106) H Calcium Level 7.3 MG/DL (8.5-10.1) L Total Bilirubin 0.4 MG/DL (0.2-1.0) Aspartate Amino Transf (AST/SGOT) 19 U/L (15-37) Alanine Aminotransferase (ALT/SGPT) 11 U/L (12-78) L Alkaline Phosphatase 88 U/L (46-116) Pro-B-Type Natriuretic Peptide 1636 pg/mL (0-125) H Total Protein 5.1 G/DL (6.4-8.2) L Albumin 1.4 G/DL (3.4-5.0) L Globulin 3.7 g/dL Albumin/Globulin Ratio 0.4 (1.0-2.7) L Current Medications Medications (Trade) Dose Ordered Sig/Hoa Route PRN Reason Start Time Stop Time Status Last Admin Dose Admin Acetaminophen (Tylenol) 650 mg Q4H PRN ORAL fever (temp>100.5F) 09/28/18 03:45 10/26/18 19:44 10/02/18 20:19 Amiodarone HCl (Cordarone) 200 mg Q24H ORAL 10/02/18 20:00 11/01/18 19:59 10/03/18 19:43 Cefepime HCl 1 gm/ Dextrose 55 ml @ 110 mls/hr Q24H IVPB 09/29/18 17:00 10/06/18 16:59 10/03/18 17:32 Chlordiazepoxide (Librium) 25 mg Q6HR NG 10/01/18 12:30 10/08/18 12:29 10/04/18 05:44 Chlorhexidine Gluconate (Zainab-Hex 2%) 1 applic DAILY@2000 TOPIC 10/03/18 20:00 11/02/18 19:59 10/03/18 19:42 Dextrose (Dextrose 50%) 25 ml Q30M PRN IV Hypoglycemia 09/28/18 01:30 10/26/18 17:59 Dextrose (Dextrose 50%) 50 ml Q30M PRN IV Hypoglycemia 09/28/18 01:30 10/26/18 17:59 Dextrose/ Electrolytes 1,000 ml @ 75 mls/hr [id number] IV 10/01/18 08:15 10/31/18 08:14 10/03/18 19:43 Heparin Sodium/ Sodium Chloride (Heparin 1000 units/500ml Premix) 1,000 unit ONCE PRN IV picc line placement 10/03/18 10:30 10/04/18 10:29 Lidocaine HCl (Xylocaine 1% 30ml) 30 ml ONCE PRN INJ picc line placement 10/03/18 10:30 10/04/18 10:29 Lorazepam (Ativan 2mg/ml 1ml) 1 mg Q1H PRN IV agitation, cofusion, dt 09/28/18 12:45 10/05/18 12:44 10/03/18 20:41 Metoprolol Tartrate 5 mg/ Dextrose 60 ml @ 130 mls/hr Q6HR PRN IVPB hr greater than 118 09/28/18 09:30 10/28/18 09:29 10/01/18 02:20 Midazolam HCl (Versed 2mg/2ml vial) 1 mg Q1H PRN IVP Agitation 09/28/18 13:00 10/28/18 12:59 09/30/18 20:06 Norepinephrine Bitartrate 4 mg/ Dextrose 250 ml @ 0 mls/hr Q24H IV 09/29/18 00:30 10/29/18 00:29 09/30/18 03:01 Ondansetron HCl (Zofran) 4 mg Q6H PRN IVP Nausea & Vomiting 09/28/18 01:45 10/27/18 19:44 Pantoprazole (Protonix) 40 mg EVERY 12 HOURS IVP 09/29/18 21:00 10/29/18 20:59 10/04/18 08:41 Quetiapine Fumarate (SEROquel) 50 mg Q12HR ORAL 09/28/18 21:00 10/27/18 08:59 10/04/18 08:41 Temazepam (Restoril) 15 mg HSPRN PRN ORAL Insomnia 09/28/18 19:45 10/04/18 19:44 10/03/18 23:40 Thiamine HCl 100 mg/Dextrose 111 ml @ 220 mls/hr Q24H IVPB 09/28/18 11:00 10/28/18 10:59 10/03/18 10:34 Barney Neil MD Oct 04, 2018 09:15
--- NOTE | 2018-10-04 09:44 | NUR ---
NURSE NOTES: Seen by Dr Neil and made aware C-Diff positive with new order noted and carried out. Addendum: 10/04/18 at 0947 by Tammy Perez RN Seen by Dr Cordova, will follow up with new orders
[2018-10-04] MEDS: D5W w/KCl 20mEq 1,000 ML IV SCH (09:56)
[2018-10-04] MEDS: Thiamine HCl 100 MG in D5W 110 ML IVPB SCH (10:07)
--- NOTE | 2018-10-04 10:15 | Diagnostic Imaging Report ---
EXAM: XR Chest, 1 View CLINICAL HISTORY: DYSPNEA TECHNIQUE: Frontal view of the chest. COMPARISON: Chest x-ray dated 10/03/18 FINDINGS: Lungs: No significant change in extensive bilateral pulmonary opacities. Pleural space: Unremarkable. The costophrenic angles are sharp. No visible pneumothorax. Heart: Unremarkable. No cardiomegaly. Mediastinum: Unremarkable. Bones/joints: Unremarkable. Tubes, lines and devices: Stable and expected positioning of the endotracheal and nasogastric tubes. Telemetry leads overlie the thorax. IMPRESSION: No significant interval change from the prior exam.
--- NOTE | 2018-10-04 10:22 | NUR ---
CASE MANAGEMENT: REVIEW SI: ARDS . ARF . ETOH WITHDRAWAL w/ DT T 98.6 HR 102 RR 36 BP 93/57 SAT 100% MECH VENT FIO2 40 WBC 15.5 H/H 8.9/26.9 BNP 1636 IS: LEVOPHED GTT VIT B1 IV Q24HR CEFEPIME IV Q24HR VANCO HCl PO QID AMIODARONE PO Q24HR D5W w/KCl 20mEq IVF @75ML/HR NGT FEEDING JEVITY 1.2 @40ML/HR ICU STATUS DCP: PATIENT IS FROM HOME
--- NOTE | 2018-10-04 11:22 | NUR ---
NURSE NOTES: Turned and repositioned.Kept clean and dry.HOB elevated to prevent risk aspiration.Remains on Cpap PS 8 and tolerate well. Will continue to monitor.
--- NOTE | 2018-10-04 11:57 | Pulmonolgy Critical Care Note ---
Critical Care - Asmt/Plan Problems: (1) Acute respiratory failure with hypoxemia (2) ARDS (adult respiratory distress syndrome) (3) ATN (acute tubular necrosis) (4) Delirium tremens (5) Rapid atrial fibrillation Respiratory: monitor respiratory rate, adjust FIO2, CXR Cardiac: continue pressors, continue to monitor HR/BP Renal: F/U I&O, keep IV fluid Infectious Disease: check cultures Gastrointestinal: continue feedings/current rate Endocrine: monitor blood sugar Hematologic: monitor H/H, transfuse if hgb<8.5 Neurologic: PRN Morphine, keep patient comfortable Affect: PRN ativan Disposition: keep in ICU Time Spent (Minutes): 40 Notes Reviewed: cardio 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, consultants, case specialistsoftware engineering associate manager - Objective Last 24 Hour Vital Signs Date Time Temp Pulse Resp B/P (MAP) Pulse Ox O2 Delivery O2 Flow Rate FiO2 10/04/18 11:28 100 29 40 10/04/18 11:00 98 24 110/54 (72) 100 10/04/18 10:00 101 26 118/53 (74) 99 10/04/18 09:00 98 26 105/57 (73) 100 10/04/18 08:57 89 36 40 40 10/04/18 08:00 Mechanical Ventilator 10/04/18 08:00 101 10/04/18 08:00 98.6 96 25 112/60 (77) 100 10/04/18 08:00 40 10/04/18 07:00 95 26 107/61 (76) 100 10/04/18 06:59 102 28 40 10/04/18 06:00 89 26 93/57 (69) 100 10/04/18 05:14 80 23 40 10/04/18 05:00 82 25 97/62 (74) 100 10/04/18 04:00 Mechanical Ventilator 10/04/18 04:00 98.9 95 25 94/55 (68) 100 10/04/18 04:00 40 10/04/18 03:36 92 10/04/18 03:00 98 26 110/54 (72) 100 10/04/18 02:45 86 24 40 10/04/18 02:00 96 26 93/53 (66) 100 10/04/18 01:00 91 26 118/82 (94) 97 10/04/18 00:57 81 26 40 10/04/18 00:30 118/82 10/04/18 00:00 98.9 91 25 98/58 (71) 100 10/04/18 00:00 Mechanical Ventilator 10/04/18 00:00 40 10/03/18 23:41 101 10/03/18 23:10 96 28 40 10/03/18 23:00 92 26 114/67 (83) 99 10/03/18 22:00 87 26 100/61 (74) 100 10/03/18 21:02 108 24 40 10/03/18 21:00 103 29 127/54 (78) 99 10/03/18 20:00 40 10/03/18 20:00 97.9 93 29 113/79 (90) 98 10/03/18 20:00 Mechanical Ventilator 10/03/18 19:11 91 10/03/18 19:00 83 20 40 10/03/18 19:00 88 21 105/60 (75) 100 10/03/18 18:00 88 23 111/68 (82) 99 10/03/18 17:08 79 22 40 10/03/18 17:00 89 26 102/62 (75) 99 10/03/18 16:00 95 10/03/18 16:00 Mechanical Ventilator 10/03/18 16:00 98.8 81 21 109/72 (84) 99 10/03/18 16:00 40 10/03/18 15:00 89 22 108/65 (79) 99 10/03/18 14:30 86 25 40 10/03/18 14:00 80 22 105/60 (75) 98 10/03/18 13:00 84 22 97/61 (73) 100 10/03/18 12:30 104 23 40 10/03/18 12:00 Mechanical Ventilator 10/03/18 12:00 40 10/03/18 12:00 99.2 90 25 99/81 (87) 99 10/03/18 12:00 90 Status: sedated Condition: critical HEENT: atraumatic, normocephalic Neck: full ROM Lungs: rales, rhonchi Heart: HR/BP stable Abdomen: soft, non-tender Extremities: no C/C/E Decubiti: location Micro: Microbiology Date/Time Source Procedure Growth Status 10/03/18 12:00 Stool Clostridium difficile Toxin Assay - Final Complete Critical Care - Subjective ROS Limited/Unobtainable: Yes Condition: critical EKG Rhythm: Sinus Rhythm FI02: 40 Vent Support Breath Rate: 16 Vent Support Mode: CPAP Vent Tidal Volume: 600 Sputum Amount: Small PEEP: 5.0 PIP: 12 Tube Feeding Amount: 40 I&O: Intake and Output 10/03/18 10/04/18 19:00 07:00 Intake Total 2291 ml 1550 ml Output Total 1710 ml 1895 ml Balance 581 ml -345 ml Intake Free Water 120 ml IV Total 1691 ml 900 ml Tube Feeding 480 ml 480 ml Other 170 ml Output Urine Total 1710 ml 1895 ml # Bowel Movements 4 CXR: improving ET-Tube: 7.5 ET Position: 23 Labs: Laboratory Tests Test 10/03/18 12:00 10/04/18 04:50 Urine Color Pale yellow Urine Appearance Clear Urine pH 6 (4.5-8.0) Urine Specific [place] 1.010 (1.005-1.035) Urine Protein 2+ (NEGATIVE) H Urine Glucose (UA) Negative (NEGATIVE) Urine Ketones Negative (NEGATIVE) Urine Blood 5+ (NEGATIVE) H Urine Nitrite Negative (NEGATIVE) Urine Bilirubin Negative (NEGATIVE) Urine Urobilinogen Normal MG/DL (0.0-1.0) Urine Leukocyte Esterase 2+ (NEGATIVE) H Urine RBC 2-4 /HPF (0 - 0) H Urine WBC 5-10 /HPF (0 - 0) H Urine Squamous Epithelial Cells Occasional /LPF Urine Bacteria Occasional /HPF (NONE) White Blood Count 15.5 K/UL (4.8-10.8) H Red Blood Count 2.83 M/UL (4.70-6.10) L Hemoglobin 8.9 G/DL (14.2-18.0) L Hematocrit 26.9 % (42.0-52.0) L Mean Corpuscular Volume 95 FL (80-99) Mean Corpuscular Hemoglobin 31.4 PG (27.0-31.0) H Mean Corpuscular Hemoglobin Concent 33.0 G/DL (32.0-36.0) Red Cell Distribution Width 16.2 % (11.6-14.8) H Platelet Count 196 K/UL (150-450) Mean Platelet Volume 10.1 FL (6.5-10.1) Neutrophils (%) (Auto) % (45.0-75.0) Lymphocytes (%) (Auto) % (20.0-45.0) Monocytes (%) (Auto) % (1.0-10.0) Eosinophils (%) (Auto) % (0.0-3.0) Basophils (%) (Auto) % (0.0-2.0) Differential Total Cells Counted 100 Neutrophils % (Manual) 85 % (45-75) H Lymphocytes % (Manual) 6 % (20-45) L Monocytes % (Manual) 6 % (1-10) Eosinophils % (Manual) 2 % (0-3) Basophils % (Manual) 0 % (0-2) Band Neutrophils 1 % (0-8) Platelet Estimate Adequate Platelet Morphology Normal Hypochromasia 2+ Anisocytosis 1+ Sodium Level 139 MMOL/L (136-145) Potassium Level 3.8 MMOL/L (3.5-5.1) Chloride Level 108 MMOL/L (98-107) H Carbon Dioxide Level 24 MMOL/L (21-32) Anion Gap 7 mmol/L (5-15) Blood Urea Nitrogen 13 mg/dL (7-18) Creatinine 1.0 MG/DL (0.55-1.30) Estimat Glomerular Filtration Rate > 60 mL/min (>60) Glucose Level 115 MG/DL (74-106) H Calcium Level 7.3 MG/DL (8.5-10.1) L Total Bilirubin 0.4 MG/DL (0.2-1.0) Aspartate Amino Transf (AST/SGOT) 19 U/L (15-37) Alanine Aminotransferase (ALT/SGPT) 11 U/L (12-78) L Alkaline Phosphatase 88 U/L (46-116) Pro-B-Type Natriuretic Peptide 1636 pg/mL (0-125) H Total Protein 5.1 G/DL (6.4-8.2) L Albumin 1.4 G/DL (3.4-5.0) L Globulin 3.7 g/dL Albumin/Globulin Ratio 0.4 (1.0-2.7) L Garret Petty MD Oct 04, 2018 11:57
--- NOTE | 2018-10-04 11:59 | NUR ---
Weaning stopped. Patient WOB increased and respiratory went >35BPM. YING Munoz made aware.
--- NOTE | 2018-10-04 12:04 | NUR ---
NURSE NOTES: Patient placed back on AC mode due to increase RR at 36. Will continue to monitor
--- NOTE | 2018-10-04 12:15 | Nephrology Progress Note ---
Assessment/Plan Problem List: (1) ATN (acute tubular necrosis) (2) ARDS (adult respiratory distress syndrome) (3) Acute respiratory failure with hypoxemia Assessment (1) Acute respiratory failure with hypoxemia- On Vent (2) ARDS (adult respiratory distress syndrome) (3) ATN (acute tubular necrosis)- resolved (4) Delirium tremens (5) Rapid atrial fibrillation Plan stable from renal stand start feeding by tube Vent support- Librium RTC Keep BP under control Avoid nephrotoxics monitor renal parameters Albumin boluses as needed k and phos and Mag as needed Subjective ROS Limited/Unobtainable: Yes Objective Objective Last 24 Hour Vital Signs Date Time Temp Pulse Resp B/P (MAP) Pulse Ox O2 Delivery O2 Flow Rate FiO2 10/04/18 12:02 114 28 40 10/04/18 12:00 40 10/04/18 12:00 Mechanical Ventilator 10/04/18 11:28 100 29 40 10/04/18 11:00 98 24 110/54 (72) 100 10/04/18 10:00 101 26 118/53 (74) 99 10/04/18 09:00 98 26 105/57 (73) 100 10/04/18 08:57 89 36 40 40 10/04/18 08:00 Mechanical Ventilator 10/04/18 08:00 101 10/04/18 08:00 98.6 96 25 112/60 (77) 100 10/04/18 08:00 40 10/04/18 07:00 95 26 107/61 (76) 100 10/04/18 06:59 102 28 40 10/04/18 06:00 89 26 93/57 (69) 100 10/04/18 05:14 80 23 40 10/04/18 05:00 82 25 97/62 (74) 100 10/04/18 04:00 Mechanical Ventilator 10/04/18 04:00 98.9 95 25 94/55 (68) 100 10/04/18 04:00 40 10/04/18 03:36 92 10/04/18 03:00 98 26 110/54 (72) 100 10/04/18 02:45 86 24 40 10/04/18 02:00 96 26 93/53 (66) 100 10/04/18 01:00 91 26 118/82 (94) 97 10/04/18 00:57 81 26 40 10/04/18 00:30 118/82 10/04/18 00:00 98.9 91 25 98/58 (71) 100 10/04/18 00:00 Mechanical Ventilator 10/04/18 00:00 40 10/03/18 23:41 101 10/03/18 23:10 96 28 40 10/03/18 23:00 92 26 114/67 (83) 99 10/03/18 22:00 87 26 100/61 (74) 100 10/03/18 21:02 108 24 40 10/03/18 21:00 103 29 127/54 (78) 99 10/03/18 20:00 40 10/03/18 20:00 97.9 93 29 113/79 (90) 98 10/03/18 20:00 Mechanical Ventilator 10/03/18 19:11 91 10/03/18 19:00 83 20 40 10/03/18 19:00 88 21 105/60 (75) 100 10/03/18 18:00 88 23 111/68 (82) 99 10/03/18 17:08 79 22 40 10/03/18 17:00 89 26 102/62 (75) 99 10/03/18 16:00 95 10/03/18 16:00 Mechanical Ventilator 10/03/18 16:00 98.8 81 21 109/72 (84) 99 10/03/18 16:00 40 10/03/18 15:00 89 22 108/65 (79) 99 10/03/18 14:30 86 25 40 10/03/18 14:00 80 22 105/60 (75) 98 10/03/18 13:00 84 22 97/61 (73) 100 10/03/18 12:30 104 23 40 Intake and Output 10/03/18 10/04/18 19:00 07:00 Intake Total 2291 ml 1550 ml Output Total 1710 ml 1895 ml Balance 581 ml -345 ml Intake Free Water 120 ml IV Total 1691 ml 900 ml Tube Feeding 480 ml 480 ml Other 170 ml Output Urine Total 1710 ml 1895 ml # Bowel Movements 4 Laboratory Tests 10/04/18 04:50: White Blood Count 15.5H, Red Blood Count 2.83L, Hemoglobin 8.9L, Hematocrit 26.9L, Mean Corpuscular Volume 95, Mean Corpuscular Hemoglobin 31.4H, Mean Corpuscular Hemoglobin Concent 33.0, Red Cell Distribution Width 16.2H, Platelet Count 196, Mean Platelet Volume 10.1, Neutrophils (%) (Auto) , Lymphocytes (%) (Auto) , Monocytes (%) (Auto) , Eosinophils (%) (Auto) , Basophils (%) (Auto) , Differential Total Cells Counted 100, Neutrophils % ( Manual) 85H, Lymphocytes % (Manual) 6L, Monocytes % (Manual) 6, Eosinophils % ( Manual) 2, Basophils % (Manual) 0, Band Neutrophils 1, Platelet Estimate Adequate, Platelet Morphology Normal, Hypochromasia 2+, Anisocytosis 1+, Sodium Level 139, Potassium Level 3.8, Chloride Level 108H, Carbon Dioxide Level 24, Anion Gap 7, Blood Urea Nitrogen 13, Creatinine 1.0, Estimat Glomerular Filtration Rate > 60, Glucose Level 115H, Calcium Level 7.3L, Total Bilirubin 0.4, Aspartate Amino Transf (AST/SGOT) 19, Alanine Aminotransferase (ALT/SGPT) 11L, Alkaline Phosphatase 88, Pro-B-Type Natriuretic Peptide 1636H, Total Protein 5.1L, Albumin 1.4L, Globulin 3.7, Albumin/Globulin Ratio 0.4L Height (Feet): 5 Height (Inches): 6.00 Weight (Pounds): 157 EENT: other - vented Cardiovascular: tachycardia Respiratory/Chest: decreased breath sounds Abdomen: distended Kaden Cordova MD Oct 04, 2018 12:15
[2018-10-04] MEDS: Vancomycin oral 125mg/2.5ml ORAL SCH ×3 (13:18→20:32)
--- NOTE | 2018-10-04 14:11 | NUR ---
NURSE NOTES: Patient turned and repositioned.HOB elevated to prevent aspiration. Feeding restarted no residual at this time.Kept clean dry and comfortable.
--- NOTE | 2018-10-04 16:04 | NUR ---
NURSE NOTES: ADLs done,turned and repositioned.HOB elevated to prevent aspiration.Kept clean dry and comfortable.Call light within easy reach
--- NOTE | 2018-10-04 16:31 | Internal Med Progress Note ---
Subjective Date of Service: Oct 04, 2018 Physician Name Sanford Castellano Attending Physician Benjamin Sterling MD Current Medications Medications (Trade) Dose Ordered Sig/Hoa Route PRN Reason Start Time Stop Time Status Last Admin Dose Admin Acetaminophen (Tylenol) 650 mg Q4H PRN ORAL fever (temp>100.5F) 09/28/18 03:45 10/26/18 19:44 10/02/18 20:19 Amiodarone HCl (Cordarone) 200 mg Q24H ORAL 10/02/18 20:00 11/01/18 19:59 10/03/18 19:43 Cefepime HCl 1 gm/ Dextrose 55 ml @ 110 mls/hr Q24H IVPB 09/29/18 17:00 10/06/18 16:59 10/03/18 17:32 Chlordiazepoxide (Librium) 25 mg Q6HR NG 10/01/18 12:30 10/08/18 12:29 10/04/18 13:17 Chlorhexidine Gluconate (Zainab-Hex 2%) 1 applic DAILY@2000 TOPIC 10/03/18 20:00 11/02/18 19:59 10/03/18 19:42 Dextrose (Dextrose 50%) 25 ml Q30M PRN IV Hypoglycemia 09/28/18 01:30 10/26/18 17:59 Dextrose (Dextrose 50%) 50 ml Q30M PRN IV Hypoglycemia 09/28/18 01:30 10/26/18 17:59 Dextrose/ Electrolytes 1,000 ml @ 75 mls/hr [id number] IV 10/01/18 08:15 10/31/18 08:14 10/04/18 09:56 Lorazepam (Ativan 2mg/ml 1ml) 1 mg Q1H PRN IV agitation, cofusion, dt 09/28/18 12:45 10/05/18 12:44 10/03/18 20:41 Metoprolol Tartrate 5 mg/ Dextrose 60 ml @ 130 mls/hr Q6HR PRN IVPB hr greater than 118 09/28/18 09:30 10/28/18 09:29 10/01/18 02:20 Midazolam HCl (Versed 2mg/2ml vial) 1 mg Q1H PRN IVP Agitation 09/28/18 13:00 10/28/18 12:59 09/30/18 20:06 Norepinephrine Bitartrate 4 mg/ Dextrose 250 ml @ 0 mls/hr Q24H IV 09/29/18 00:30 10/29/18 00:29 09/30/18 03:01 Ondansetron HCl (Zofran) 4 mg Q6H PRN IVP Nausea & Vomiting 09/28/18 01:45 10/27/18 19:44 Pantoprazole (Protonix) 40 mg EVERY 12 HOURS IVP 09/29/18 21:00 10/29/18 20:59 10/04/18 08:41 Quetiapine Fumarate (SEROquel) 50 mg Q12HR ORAL 09/28/18 21:00 10/27/18 08:59 10/04/18 08:41 Temazepam (Restoril) 15 mg HSPRN PRN ORAL Insomnia 09/28/18 19:45 10/04/18 19:44 10/03/18 23:40 Thiamine HCl 100 mg/Dextrose 111 ml @ 220 mls/hr Q24H IVPB 09/28/18 11:00 10/28/18 10:59 10/04/18 10:07 Vancomycin HCl (Firvanq) 125 mg FOUR TIMES A DAY ORAL 10/04/18 13:00 10/11/18 12:59 10/04/18 13:18 Allergies: Coded Allergies: No Known Allergies (Unverified , 09/06/15) ROS Limited/Unobtainable: Yes Subjective 68 YO M admitted with hematuria and hypotension. Now atrial fibrillation with rapid ventricular rate. Cover for Int Ash-Dr Sterling. ICU. Intubated and sedated Objective Last Vital Signs Date Time Temp Pulse Resp B/P (MAP) Pulse Ox O2 Delivery O2 Flow Rate FiO2 10/04/18 15:28 94 25 40 10/04/18 14:00 105/57 (73) 100 10/04/18 12:00 98.6 10/04/18 12:00 Mechanical Ventilator 09/29/18 00:00 15.0 Laboratory Tests Test 10/04/18 04:50 White Blood Count 15.5 K/UL (4.8-10.8) H Red Blood Count 2.83 M/UL (4.70-6.10) L Hemoglobin 8.9 G/DL (14.2-18.0) L Hematocrit 26.9 % (42.0-52.0) L Mean Corpuscular Volume 95 FL (80-99) Mean Corpuscular Hemoglobin 31.4 PG (27.0-31.0) H Mean Corpuscular Hemoglobin Concent 33.0 G/DL (32.0-36.0) Red Cell Distribution Width 16.2 % (11.6-14.8) H Platelet Count 196 K/UL (150-450) Mean Platelet Volume 10.1 FL (6.5-10.1) Neutrophils (%) (Auto) % (45.0-75.0) Lymphocytes (%) (Auto) % (20.0-45.0) Monocytes (%) (Auto) % (1.0-10.0) Eosinophils (%) (Auto) % (0.0-3.0) Basophils (%) (Auto) % (0.0-2.0) Differential Total Cells Counted 100 Neutrophils % (Manual) 85 % (45-75) H Lymphocytes % (Manual) 6 % (20-45) L Monocytes % (Manual) 6 % (1-10) Eosinophils % (Manual) 2 % (0-3) Basophils % (Manual) 0 % (0-2) Band Neutrophils 1 % (0-8) Platelet Estimate Adequate Platelet Morphology Normal Hypochromasia 2+ Anisocytosis 1+ Sodium Level 139 MMOL/L (136-145) Potassium Level 3.8 MMOL/L (3.5-5.1) Chloride Level 108 MMOL/L (98-107) H Carbon Dioxide Level 24 MMOL/L (21-32) Anion Gap 7 mmol/L (5-15) Blood Urea Nitrogen 13 mg/dL (7-18) Creatinine 1.0 MG/DL (0.55-1.30) Estimat Glomerular Filtration Rate > 60 mL/min (>60) Glucose Level 115 MG/DL (74-106) H Calcium Level 7.3 MG/DL (8.5-10.1) L Total Bilirubin 0.4 MG/DL (0.2-1.0) Aspartate Amino Transf (AST/SGOT) 19 U/L (15-37) Alanine Aminotransferase (ALT/SGPT) 11 U/L (12-78) L Alkaline Phosphatase 88 U/L (46-116) Pro-B-Type Natriuretic Peptide 1636 pg/mL (0-125) H Total Protein 5.1 G/DL (6.4-8.2) L Albumin 1.4 G/DL (3.4-5.0) L Globulin 3.7 g/dL Albumin/Globulin Ratio 0.4 (1.0-2.7) L Microbiology Date/Time Source Procedure Growth Status 10/03/18 12:00 Sputum Gram Stain - Final Resulted 10/03/18 12:00 Sputum Sputum Culture Pending Resulted 10/03/18 12:00 Stool Clostridium difficile Toxin Assay - Final Complete Intake and Output 10/03/18 10/04/18 18:59 06:59 Intake Total 2291 ml 1550 ml Output Total 1485 ml 2115 ml Balance 806 ml -565 ml Intake Free Water 120 ml IV Total 1691 ml 900 ml Tube Feeding 480 ml 480 ml Other 170 ml Output Urine Total 1485 ml 2115 ml # Bowel Movements 4 Objective General Appearance: WD/WN, no apparent distress, alert EENT: PERRL/EOMI, normal ENT inspection, TMs normal Neck: non-tender, normal alignment, supple, normal inspection Cardiovascular: Tachy; irreg/irreg; normal peripheral pulses, normal rate, no gallop/murmur, no JVD Respiratory/Chest: Mech vent; chest wall non-tender, lungs clear, coarse upper breath sounds, no respiratory distress, no accessory muscle use Abdomen: normal bowel sounds, non tender, soft, no organomegaly, no mass Extremities: normal range of motion, non-tender 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 Atrial fibrillation with rapid ventricular rate 6. Respiratory failure/ARDS Assessment/Plan fernandez cultures iv abx banana bag Librium, Seroquel and Klonipin iv abx, ID evaluation Metoprolol drip per Cardiology ICU status Cont mech vent per pulmonary Abx=Cefepime Sanford Castellano MD Oct 04, 2018 16:31
[2018-10-04] MEDS: Cefepime HCl 1 GM in D5W 55 ML IVPB SCH (17:52)
--- NOTE | 2018-10-04 18:04 | NUR ---
NURSE NOTES: ADLs done,pt turned and repositioned, mouth care done, kept clean and dry.HOB elevated to prevent aspiration.Will continue to monitor.
[2018-10-04] MEDS ORDERED: Tubing IV Secondary IV ONE (18:57)
[2018-10-04] MEDS ORDERED: NS 275ml ONE ×2 (18:57→18:58)
[2018-10-04] MEDS ORDERED: Sterile Water For Irrig 2000ml IRRIG ONE (18:58)
--- NOTE | 2018-10-04 19:01 | NUR ---
RESPIRATORY NOTE: Received pt on AC 16, 600VT, 40%, PEEP +5. Pt intubated w/ ETT 7.5 @ 23cm lipline, secured by anchorfast. Pt alert/awake, follows commands. B/S kandi. rhonchi/diminished, sxn small amounts of thick, pale-yellow secretions. Both hands on soft-restraints to prevent pt from self-extubation. Vent plugged into red outlet, ambubag at bedside. Pt in no apparent distress at this time. Will continue to monitor pt.
--- NOTE | 2018-10-04 19:05 | NUR ---
HAND-OFF: Report given to YING Warner.
--- NOTE | 2018-10-04 19:44 | Cardiology Progress Note ---
Assessment/Plan Assessment/Plan paroxysmal a fib, converted to sinus rhythm on amiodarone, CXR looks like fluid overload, probably should decrease amount of IVF Subjective Subjective The patient is intubated and unresponsive, does not open his eyes Objective Last 24 Hour Vital Signs Date Time Temp Pulse Resp B/P (MAP) Pulse Ox O2 Delivery O2 Flow Rate FiO2 10/04/18 19:00 96 25 107/57 (74) 100 10/04/18 18:59 89 28 40 10/04/18 18:00 93 24 108/59 (75) 100 10/04/18 17:20 86 24 40 10/04/18 17:00 90 24 106/63 (77) 100 10/04/18 16:00 Mechanical Ventilator 10/04/18 16:00 40 10/04/18 16:00 98.2 89 24 100/58 (72) 100 10/04/18 16:00 92 10/04/18 15:28 94 25 40 10/04/18 15:00 91 24 103/69 (80) 100 10/04/18 14:00 103 24 105/57 (73) 100 10/04/18 13:11 84 24 40 10/04/18 13:00 88 25 96/52 (67) 100 10/04/18 12:02 114 28 40 10/04/18 12:00 108 10/04/18 12:00 98.6 90 25 116/67 (83) 100 10/04/18 12:00 40 10/04/18 12:00 Mechanical Ventilator 10/04/18 11:28 100 29 40 10/04/18 11:00 98 24 110/54 (72) 100 10/04/18 10:00 101 26 118/53 (74) 99 10/04/18 09:00 98 26 105/57 (73) 100 10/04/18 09:00 100 10/04/18 08:57 89 36 40 40 10/04/18 08:00 Mechanical Ventilator 10/04/18 08:00 101 10/04/18 08:00 98.6 96 25 112/60 (77) 100 10/04/18 08:00 40 10/04/18 07:00 95 26 107/61 (76) 100 10/04/18 06:59 102 28 40 10/04/18 06:00 89 26 93/57 (69) 100 10/04/18 05:14 80 23 40 10/04/18 05:00 82 25 97/62 (74) 100 10/04/18 04:00 Mechanical Ventilator 10/04/18 04:00 98.9 95 25 94/55 (68) 100 10/04/18 04:00 40 10/04/18 03:36 92 10/04/18 03:00 98 26 110/54 (72) 100 10/04/18 02:45 86 24 40 10/04/18 02:00 96 26 93/53 (66) 100 10/04/18 01:00 91 26 118/82 (94) 97 10/04/18 00:57 81 26 40 10/04/18 00:30 118/82 10/04/18 00:00 98.9 91 25 98/58 (71) 100 10/04/18 00:00 Mechanical Ventilator 10/04/18 00:00 40 10/03/18 23:41 101 10/03/18 23:10 96 28 40 10/03/18 23:00 92 26 114/67 (83) 99 10/03/18 22:00 87 26 100/61 (74) 100 10/03/18 21:02 108 24 40 10/03/18 21:00 103 29 127/54 (78) 99 10/03/18 20:00 40 10/03/18 20:00 97.9 93 29 113/79 (90) 98 10/03/18 20:00 Mechanical Ventilator General Appearance: on vent, other - unresponsive EENT: other - unable to assess Neck: normal alignment Rhythm: NSR Cardiovascular: normal rate Respiratory/Chest: crackles/rales Abdomen: distended Extremities: normal capillary refill Intake and Output 10/03/18 10/04/18 18:59 06:59 Intake Total 2291 ml 1550 ml Output Total 1485 ml 2115 ml Balance 806 ml -565 ml Intake Free Water 120 ml IV Total 1691 ml 900 ml Tube Feeding 480 ml 480 ml Other 170 ml Output Urine Total 1485 ml 2115 ml # Bowel Movements 4 Laboratory Tests Test 10/04/18 04:50 White Blood Count 15.5 K/UL (4.8-10.8) H Red Blood Count 2.83 M/UL (4.70-6.10) L Hemoglobin 8.9 G/DL (14.2-18.0) L Hematocrit 26.9 % (42.0-52.0) L Mean Corpuscular Volume 95 FL (80-99) Mean Corpuscular Hemoglobin 31.4 PG (27.0-31.0) H Mean Corpuscular Hemoglobin Concent 33.0 G/DL (32.0-36.0) Red Cell Distribution Width 16.2 % (11.6-14.8) H Platelet Count 196 K/UL (150-450) Mean Platelet Volume 10.1 FL (6.5-10.1) Neutrophils (%) (Auto) % (45.0-75.0) Lymphocytes (%) (Auto) % (20.0-45.0) Monocytes (%) (Auto) % (1.0-10.0) Eosinophils (%) (Auto) % (0.0-3.0) Basophils (%) (Auto) % (0.0-2.0) Differential Total Cells Counted 100 Neutrophils % (Manual) 85 % (45-75) H Lymphocytes % (Manual) 6 % (20-45) L Monocytes % (Manual) 6 % (1-10) Eosinophils % (Manual) 2 % (0-3) Basophils % (Manual) 0 % (0-2) Band Neutrophils 1 % (0-8) Platelet Estimate Adequate Platelet Morphology Normal Hypochromasia 2+ Anisocytosis 1+ Sodium Level 139 MMOL/L (136-145) Potassium Level 3.8 MMOL/L (3.5-5.1) Chloride Level 108 MMOL/L (98-107) H Carbon Dioxide Level 24 MMOL/L (21-32) Anion Gap 7 mmol/L (5-15) Blood Urea Nitrogen 13 mg/dL (7-18) Creatinine 1.0 MG/DL (0.55-1.30) Estimat Glomerular Filtration Rate > 60 mL/min (>60) Glucose Level 115 MG/DL (74-106) H Calcium Level 7.3 MG/DL (8.5-10.1) L Total Bilirubin 0.4 MG/DL (0.2-1.0) Aspartate Amino Transf (AST/SGOT) 19 U/L (15-37) Alanine Aminotransferase (ALT/SGPT) 11 U/L (12-78) L Alkaline Phosphatase 88 U/L (46-116) Pro-B-Type Natriuretic Peptide 1636 pg/mL (0-125) H Total Protein 5.1 G/DL (6.4-8.2) L Albumin 1.4 G/DL (3.4-5.0) L Globulin 3.7 g/dL Albumin/Globulin Ratio 0.4 (1.0-2.7) L Microbiology Date/Time Source Procedure Growth Status 10/03/18 12:00 Sputum Gram Stain - Final Resulted 10/03/18 12:00 Sputum Sputum Culture Pending Resulted 10/03/18 12:00 Stool Clostridium difficile Toxin Assay - Final Complete Alana Ruiz MD Oct 04, 2018 19:44
--- NOTE | 2018-10-04 19:45 | NUR ---
NURSE NOTES: Received patient in bed with eyes closed. sinus rhythm on the monitor. AOx2. Orally intubated AC 16, vt 600, p 5 fio2 40%. Right nare NGT feeding Jevity 1.2 @ 40 cc/hr with no residual at this time. ROCKY picc line running D5W w/ 20 kcl @ 75 cc/hr. Steen cath draining by gravity. On contact precautions at this time. Bed in lowest positions, side rails upx3. No signs of distress noted. Will continue to monitor
[2018-10-04] MEDS: Midazolam 2mg/2ml Inj IVP PRN ×2 (20:00→22:52)
[2018-10-04] MEDS: Dyna-Hex 2% Top Sol 2oz TOPIC SCH (20:07)
[2018-10-04] MEDS: Amiodarone 200mg tab ORAL SCH (20:07)
--- NOTE | 2018-10-04 21:00 | NUR ---
NURSE NOTES: Patient continues on Bi-lateral soft wrist restraints at this time. When awake noted to try to get out of bed or reach for ETT. Bed side teaching done in regards to removal criteria. Will continue with plan of care.
[2018-10-04] MEDS ORDERED: Dyna-Hex 2% Top Sol 2oz TOPIC SCH (22:00)
--- NOTE | 2018-10-04 22:58 | NUR ---
NURSE NOTES: Called and notified MD Petty about patient beign very agitated at this time, Versed has been given and it does not help. patient peak pressures when awake are 60. MD ordered Morphine 4 mg IVP to be given PRN.
[2018-10-04] MEDS ORDERED: Morphine Sulfate 4mg/ml Inj (IV USE ONLY) IVP PRN (23:15)
[2018-10-05] VITALS (24 sets, daily range): BP systolic 87–125; BP diastolic 49–78
--- NOTE | 2018-10-05 | NUR ---
NURSE NOTES: CHG bath done. patient noted to have large BM at this time. No signs of distress noted. Will continue to monitor
--- NOTE | 2018-10-05 02:00 | NUR ---
NURSE NOTES: Patient continues sleeping at this time from versed given earlier. Arousable to verbal and tactile stimuli. No signs of distress noted. Will continue to monitor
--- NOTE | 2018-10-05 04:00 | NUR ---
NURSE NOTES: Turned and repositioned for comfort at this time. Patient continues sleeping. restraints placed back on after morning care. VS stable. Bed in lowest positions, side rails upx3. Call light within reach. Will continue to monitor
[2018-10-05] MEDS: D5W w/KCl 20mEq 1,000 ML IV SCH ×2 (04:59→17:13)
[2018-10-05] MEDS: chlordiazePOXIDE 25mg Cap NG SCH ×5 (05:28→23:39)
--- NOTE | 2018-10-05 06:00 | NUR ---
NURSE NOTES: Turned repositioned for comfort. Patient continues to sleep. VS Stable. No signs of distress noted. Will continue to monitor
[2018-10-05 06:13] LABS: HEMATOCRIT 27.5 % (42.0-52.0); HEMOGLOBIN 9.1 G/DL (14.2-18.0); MEAN CORPUSCULAR VOLUME 96 FL (80-99); PLATELET COUNT 230 K/UL (150-450); RED BLOOD COUNT 2.87 M/UL (4.70-6.10); RED CELL DISTRIBUTION WIDTH 16.1 % (11.6-14.8); WHITE BLOOD COUNT 19.5 K/UL (4.8-10.8)
[2018-10-05 06:15] LABS: ALANINE AMINOTRANSFERASE 9 U/L (12-78); ALBUMIN 1.5 G/DL (3.4-5.0); ALBUMIN/GLOBULIN RATIO 0.4 (1.0-2.7); ALKALINE PHOSPHATASE 96 U/L (46-116); ANION GAP 8 mmol/L (5-15); ASPARTATE AMINO TRANSFERASE 14 U/L (15-37); BILIRUBIN,TOTAL 0.3 MG/DL (0.2-1.0); BLOOD UREA NITROGEN 14 mg/dL (7-18); CALCIUM 7.6 MG/DL (8.5-10.1); CARBON DIOXIDE 24 MMOL/L (21-32); CHLORIDE 108 MMOL/L (98-107); PHOSPHORUS 3.4 MG/DL (2.5-4.9); POTASSIUM 3.6 MMOL/L (3.5-5.1); SODIUM 140 MMOL/L (136-145)
--- NOTE | 2018-10-05 07:00 | NUR ---
Received Patient on AVCV RR 16, VT 600, FIO2 40%, PEEP +5. Breath sounds reveal bilateral diminished rhonchi. Suction thick white secretions and BAL as needed. Patient alert and awake, lying in bed. Patient intubated with a 7.5 ETT at 23cm at the lip. Ambu Bag at bedside. Alarms on and audible. Will continue to monitor patient throughout the day.
--- NOTE | 2018-10-05 07:29 | NUR ---
HAND-OFF: Report given to Paris PHILIPPE RN using SBAR.
--- NOTE | 2018-10-05 07:30 | NUR ---
NURSE NOTES: Report received from Alana HE. Pt alert and oriented x3, under, able to follow commands. Pt connected to cashier and waiter/waitress, SR. Pt orally intubated ETT 7.5, 23 cm, AC 16, TV 600, 40% fiO2 and PEEP 5. NGT to right nare running Jebity at 40 cc/hr. Steen noted and intact draining clear, yellow urine. ROCKY PICC with d5W +20 K at 75 cc/hr. Bilateral soft wrist restraints on. Pt attempts to pull out lines and tubes. Safety measures in place with bed locked and in lowest position, side rails x3 up and bed alarm on. Will continue to monitor and continue plan of care.
[2018-10-05] MEDS: Pantoprazole Inj IVP SCH ×2 (08:45→20:49)
[2018-10-05] MEDS: Vancomycin oral 125mg/2.5ml ORAL SCH ×4 (08:46→20:49)
[2018-10-05] MEDS: Thiamine HCl 100 MG in D5W 110 ML IVPB SCH (10:39)
--- NOTE | 2018-10-05 10:45 | NUR ---
NURSE NOTES: PT turned and repositioned. Dr Cordova here to see pt. No new orders. No acute distress. Will continue to monitor.
--- NOTE | 2018-10-05 11:43 | Pulmonolgy Critical Care Note ---
Critical Care - Asmt/Plan Problems: (1) Acute respiratory failure with hypoxemia (2) ARDS (adult respiratory distress syndrome) (3) ATN (acute tubular necrosis) (4) Delirium tremens (5) Rapid atrial fibrillation Respiratory: monitor respiratory rate, adjust FIO2, CXR Cardiac: continue pressors, continue to monitor HR/BP Renal: F/U I&O Infectious Disease: check cultures Gastrointestinal: continue feedings/current rate, hold feedings Endocrine: check TSH Hematologic: transfuse if hgb<8.5 Neurologic: PRN Morphine, keep patient comfortable Affect: PRN ativan Notes Reviewed: echocardiograph tech, renal 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, consultants, casework specialistmanager forms - Objective Last 24 Hour Vital Signs Date Time Temp Pulse Resp B/P (MAP) Pulse Ox O2 Delivery O2 Flow Rate FiO2 10/05/18 11:00 84 22 105/52 (69) 100 10/05/18 10:43 86 25 40 10/05/18 10:00 82 22 98/53 (68) 100 10/05/18 09:22 75 18 40 10/05/18 09:00 77 19 95/59 (71) 100 10/05/18 08:00 68 10/05/18 08:00 40 10/05/18 08:00 99.4 81 19 99/55 (70) 98 10/05/18 08:00 Mechanical Ventilator 10/05/18 07:00 83 20 112/60 (77) 100 10/05/18 06:48 83 25 40 10/05/18 06:00 82 20 95/49 (64) 100 10/05/18 05:05 89 20 40 10/05/18 05:00 80 20 104/56 (72) 100 10/05/18 04:00 Mechanical Ventilator 10/05/18 04:00 40 10/05/18 04:00 82 10/05/18 04:00 98.3 81 20 105/58 (74) 100 10/05/18 03:05 80 18 40 10/05/18 03:00 82 18 125/78 (94) 100 10/05/18 02:00 84 19 87/54 (65) 100 10/05/18 01:00 85 21 105/60 (75) 100 10/05/18 00:58 90 23 40 10/05/18 00:01 130/45 10/05/18 00:00 40 10/05/18 00:00 Mechanical Ventilator 10/05/18 00:00 99.1 87 22 95/62 (73) 100 10/05/18 00:00 84 10/04/18 23:05 96 22 40 10/04/18 23:00 94 25 130/45 (73) 100 10/04/18 22:00 88 25 90/58 (69) 100 10/04/18 21:09 108 29 40 10/04/18 21:00 102 25 121/63 (82) 97 10/04/18 20:00 Mechanical Ventilator 10/04/18 20:00 106 10/04/18 20:00 99.1 101 24 125/59 (81) 100 10/04/18 20:00 40 10/04/18 19:00 96 25 107/57 (74) 100 10/04/18 18:59 89 28 40 10/04/18 18:00 93 24 108/59 (75) 100 10/04/18 17:20 86 24 40 10/04/18 17:00 90 24 106/63 (77) 100 10/04/18 16:00 Mechanical Ventilator 10/04/18 16:00 40 10/04/18 16:00 98.2 89 24 100/58 (72) 100 10/04/18 16:00 92 10/04/18 15:28 94 25 40 10/04/18 15:00 91 24 103/69 (80) 100 10/04/18 14:00 103 24 105/57 (73) 100 10/04/18 13:11 84 24 40 10/04/18 13:00 88 25 96/52 (67) 100 10/04/18 12:02 114 28 40 10/04/18 12:00 108 10/04/18 12:00 98.6 90 25 116/67 (83) 100 10/04/18 12:00 40 10/04/18 12:00 Mechanical Ventilator Status: sedated Condition: critical HEENT: atraumatic Lungs: clear Heart: HR/BP stable Abdomen: soft, active bowel sounds Extremities: no C/C/E, edema Micro: Microbiology Date/Time Source Procedure Growth Status 10/03/18 12:00 Sputum Gram Stain - Final Complete 10/03/18 12:00 Sputum Sputum Culture - Final NORMAL UPPER RESPIRATORY BRIGIDA PRESENT Complete 10/03/18 12:00 Stool Clostridium difficile Toxin Assay - Final Complete Critical Care - Subjective ROS Limited/Unobtainable: No Condition: critical EKG Rhythm: Sinus Rhythm FI02: 40 Vent Support Breath Rate: 16 Vent Support Mode: AC Vent Tidal Volume: 600 Sputum Amount: Moderate PEEP: 5.0 PIP: 24 Tube Feeding Amount: 40 I&O: Intake and Output 10/04/18 10/05/18 19:00 07:00 Intake Total 1406 ml 1165 ml Output Total 1430 ml 1150 ml Balance -24 ml 15 ml Intake Free Water 110 ml 100 ml IV Total 936 ml 525 ml Tube Feeding 360 ml 480 ml Other 60 ml Output Urine Total 1430 ml 1150 ml # Bowel Movements 2 2 CXR: improving ET-Tube: 7.5 ET Position: 23 Labs: Laboratory Tests Test 10/05/18 04:00 White Blood Count 19.5 K/UL (4.8-10.8) H Red Blood Count 2.87 M/UL (4.70-6.10) L Hemoglobin 9.1 G/DL (14.2-18.0) L Hematocrit 27.5 % (42.0-52.0) L Mean Corpuscular Volume 96 FL (80-99) Mean Corpuscular Hemoglobin 31.5 PG (27.0-31.0) H Mean Corpuscular Hemoglobin Concent 32.9 G/DL (32.0-36.0) Red Cell Distribution Width 16.1 % (11.6-14.8) H Platelet Count 230 K/UL (150-450) Mean Platelet Volume 9.7 FL (6.5-10.1) Neutrophils (%) (Auto) % (45.0-75.0) Lymphocytes (%) (Auto) % (20.0-45.0) Monocytes (%) (Auto) % (1.0-10.0) Eosinophils (%) (Auto) % (0.0-3.0) Basophils (%) (Auto) % (0.0-2.0) Differential Total Cells Counted 100 Neutrophils % (Manual) 86 % (45-75) H Lymphocytes % (Manual) 4 % (20-45) L Monocytes % (Manual) 10 % (1-10) Eosinophils % (Manual) 0 % (0-3) Basophils % (Manual) 0 % (0-2) Band Neutrophils 0 % (0-8) Platelet Estimate Adequate Platelet Morphology Normal Anisocytosis 1+ Sodium Level 140 MMOL/L (136-145) Potassium Level 3.6 MMOL/L (3.5-5.1) Chloride Level 108 MMOL/L (98-107) H Carbon Dioxide Level 24 MMOL/L (21-32) Anion Gap 8 mmol/L (5-15) Blood Urea Nitrogen 14 mg/dL (7-18) Creatinine 1.0 MG/DL (0.55-1.30) Estimat Glomerular Filtration Rate > 60 mL/min (>60) Glucose Level 99 MG/DL (74-106) Calcium Level 7.6 MG/DL (8.5-10.1) L Phosphorus Level 3.4 MG/DL (2.5-4.9) Magnesium Level 1.7 MG/DL (1.8-2.4) L Total Bilirubin 0.3 MG/DL (0.2-1.0) Aspartate Amino Transf (AST/SGOT) 14 U/L (15-37) L Alanine Aminotransferase (ALT/SGPT) 9 U/L (12-78) L Alkaline Phosphatase 96 U/L (46-116) Total Protein 5.3 G/DL (6.4-8.2) L Albumin 1.5 G/DL (3.4-5.0) L Globulin 3.8 g/dL Albumin/Globulin Ratio 0.4 (1.0-2.7) L Garret Petty MD Oct 05, 2018 11:43
--- NOTE | 2018-10-05 13:36 | Nephrology Progress Note ---
Assessment/Plan Problem List: (1) ATN (acute tubular necrosis) (2) ARDS (adult respiratory distress syndrome) (3) Acute respiratory failure with hypoxemia Assessment (1) Acute respiratory failure with hypoxemia- On Vent (2) ARDS (adult respiratory distress syndrome) (3) ATN (acute tubular necrosis)- resolved (4) Delirium tremens (5) Rapid atrial fibrillation Plan stable from renal stand start feeding by tube Vent support- Librium RTC Keep BP under control Avoid nephrotoxics monitor renal parameters Albumin boluses as needed k and phos and Mag as needed Subjective ROS Limited/Unobtainable: Yes Objective Objective Last 24 Hour Vital Signs Date Time Temp Pulse Resp B/P (MAP) Pulse Ox O2 Delivery O2 Flow Rate FiO2 10/05/18 13:11 80 22 40 10/05/18 12:00 Mechanical Ventilator 10/05/18 12:00 40 10/05/18 12:00 99.0 86 24 110/61 (77) 100 10/05/18 11:00 84 22 105/52 (69) 100 10/05/18 10:43 86 25 40 10/05/18 10:00 82 22 98/53 (68) 100 10/05/18 09:22 75 18 40 10/05/18 09:00 77 19 95/59 (71) 100 10/05/18 08:00 68 10/05/18 08:00 40 10/05/18 08:00 99.4 81 19 99/55 (70) 98 10/05/18 08:00 Mechanical Ventilator 10/05/18 07:00 83 20 112/60 (77) 100 10/05/18 06:48 83 25 40 10/05/18 06:00 82 20 95/49 (64) 100 10/05/18 05:05 89 20 40 10/05/18 05:00 80 20 104/56 (72) 100 10/05/18 04:00 Mechanical Ventilator 10/05/18 04:00 40 10/05/18 04:00 82 10/05/18 04:00 98.3 81 20 105/58 (74) 100 10/05/18 03:05 80 18 40 10/05/18 03:00 82 18 125/78 (94) 100 10/05/18 02:00 84 19 87/54 (65) 100 10/05/18 01:00 85 21 105/60 (75) 100 10/05/18 00:58 90 23 40 10/05/18 00:01 130/45 10/05/18 00:00 40 10/05/18 00:00 Mechanical Ventilator 10/05/18 00:00 99.1 87 22 95/62 (73) 100 10/05/18 00:00 84 10/04/18 23:05 96 22 40 10/04/18 23:00 94 25 130/45 (73) 100 10/04/18 22:00 88 25 90/58 (69) 100 10/04/18 21:09 108 29 40 10/04/18 21:00 102 25 121/63 (82) 97 10/04/18 20:00 Mechanical Ventilator 10/04/18 20:00 106 10/04/18 20:00 99.1 101 24 125/59 (81) 100 10/04/18 20:00 40 10/04/18 19:00 96 25 107/57 (74) 100 10/04/18 18:59 89 28 40 10/04/18 18:00 93 24 108/59 (75) 100 10/04/18 17:20 86 24 40 10/04/18 17:00 90 24 106/63 (77) 100 10/04/18 16:00 Mechanical Ventilator 10/04/18 16:00 40 10/04/18 16:00 98.2 89 24 100/58 (72) 100 10/04/18 16:00 92 10/04/18 15:28 94 25 40 10/04/18 15:00 91 24 103/69 (80) 100 10/04/18 14:00 103 24 105/57 (73) 100 Intake and Output 10/04/18 10/05/18 19:00 07:00 Intake Total 1406 ml 1165 ml Output Total 1430 ml 1150 ml Balance -24 ml 15 ml Intake Free Water 110 ml 100 ml IV Total 936 ml 525 ml Tube Feeding 360 ml 480 ml Other 60 ml Output Urine Total 1430 ml 1150 ml # Bowel Movements 2 2 Laboratory Tests 10/05/18 04:00: White Blood Count 19.5H, Red Blood Count 2.87L, Hemoglobin 9.1L, Hematocrit 27.5L, Mean Corpuscular Volume 96, Mean Corpuscular Hemoglobin 31.5H, Mean Corpuscular Hemoglobin Concent 32.9, Red Cell Distribution Width 16.1H, Platelet Count 230, Mean Platelet Volume 9.7, Neutrophils (%) (Auto) , Lymphocytes (%) (Auto) , Monocytes (%) (Auto) , Eosinophils (%) (Auto) , Basophils (%) (Auto) , Differential Total Cells Counted 100, Neutrophils % ( Manual) 86H, Lymphocytes % (Manual) 4L, Monocytes % (Manual) 10, Eosinophils % ( Manual) 0, Basophils % (Manual) 0, Band Neutrophils 0, Platelet Estimate Adequate, Platelet Morphology Normal, Anisocytosis 1+, Sodium Level 140, Potassium Level 3.6, Chloride Level 108H, Carbon Dioxide Level 24, Anion Gap 8, Blood Urea Nitrogen 14, Creatinine 1.0, Estimat Glomerular Filtration Rate > 60 , Glucose Level 99, Calcium Level 7.6L, Phosphorus Level 3.4, Magnesium Level 1.7L, Total Bilirubin 0.3, Aspartate Amino Transf (AST/SGOT) 14L, Alanine Aminotransferase (ALT/SGPT) 9L, Alkaline Phosphatase 96, Total Protein 5.3L, Albumin 1.5L, Globulin 3.8, Albumin/Globulin Ratio 0.4L Height (Feet): 5 Height (Inches): 6.00 Weight (Pounds): 157 EENT: other - vented Cardiovascular: other - variable rate Respiratory/Chest: decreased breath sounds Abdomen: distended Kaden Cordova MD Oct 05, 2018 13:36
--- NOTE | 2018-10-05 14:38 | NUR ---
VSS. No acute distress. Will continue to monitor.
[2018-10-05] MEDS ORDERED: NS 275ml ONE (15:26)
--- NOTE | 2018-10-05 15:32 | Internal Med Progress Note ---
Subjective Date of Service: Oct 05, 2018 Physician Name Sanford Castellano Attending Physician Benjamin Sterling MD Current Medications Medications (Trade) Dose Ordered Sig/Hoa Route PRN Reason Start Time Stop Time Status Last Admin Dose Admin Acetaminophen (Tylenol) 650 mg Q4H PRN ORAL fever (temp>100.5F) 09/28/18 03:45 10/26/18 19:44 10/02/18 20:19 Amiodarone HCl (Cordarone) 200 mg Q24H ORAL 10/02/18 20:00 11/01/18 19:59 10/04/18 20:07 Cefepime HCl 1 gm/ Dextrose 55 ml @ 110 mls/hr Q24H IVPB 09/29/18 17:00 10/09/18 16:59 10/04/18 17:52 Chlordiazepoxide (Librium) 25 mg Q6HR NG 10/01/18 12:30 10/08/18 12:29 10/05/18 12:03 Chlorhexidine Gluconate (Zainab-Hex 2%) 1 applic DAILY@2000 TOPIC 10/03/18 20:00 11/02/18 19:59 10/04/18 20:07 Dextrose (Dextrose 50%) 25 ml Q30M PRN IV Hypoglycemia 09/28/18 01:30 10/26/18 17:59 Dextrose (Dextrose 50%) 50 ml Q30M PRN IV Hypoglycemia 09/28/18 01:30 10/26/18 17:59 Dextrose/ Electrolytes 1,000 ml @ 75 mls/hr [id number] IV 10/01/18 08:15 10/31/18 08:14 10/05/18 04:59 Metoprolol Tartrate 5 mg/ Dextrose 60 ml @ 130 mls/hr Q6HR PRN IVPB hr greater than 118 09/28/18 09:30 10/28/18 09:29 10/01/18 02:20 Midazolam HCl (Versed 2mg/2ml vial) 1 mg Q1H PRN IVP Agitation 09/28/18 13:00 10/28/18 12:59 10/04/18 22:52 Morphine Sulfate (Morphine Sulfate) 4 mg Q4H PRN IVP For Pain 10/04/18 23:15 10/11/18 23:14 Norepinephrine Bitartrate 4 mg/ Dextrose 250 ml @ 0 mls/hr Q24H IV 09/29/18 00:30 10/29/18 00:29 09/30/18 03:01 Ondansetron HCl (Zofran) 4 mg Q6H PRN IVP Nausea & Vomiting 09/28/18 01:45 10/27/18 19:44 Pantoprazole (Protonix) 40 mg EVERY 12 HOURS IVP 09/29/18 21:00 10/29/18 20:59 10/05/18 08:45 Quetiapine Fumarate (SEROquel) 50 mg Q12HR ORAL 09/28/18 21:00 10/27/18 08:59 10/05/18 08:46 Thiamine HCl 100 mg/Dextrose 111 ml @ 220 mls/hr Q24H IVPB 09/28/18 11:00 10/28/18 10:59 10/05/18 10:39 Vancomycin HCl (Firvanq) 125 mg FOUR TIMES A DAY ORAL 10/04/18 13:00 10/11/18 12:59 10/05/18 12:03 Allergies: Coded Allergies: No Known Allergies (Unverified , 09/06/15) ROS Limited/Unobtainable: Yes Subjective 68 YO M admitted with hematuria and hypotension. Now atrial fibrillation with rapid ventricular rate. Cover for Int Med-Dr Sterling. ICU. Intubated and sedated Objective Last Vital Signs Date Time Temp Pulse Resp B/P (MAP) Pulse Ox O2 Delivery O2 Flow Rate FiO2 10/05/18 15:26 79 22 40 10/05/18 15:00 102/51 (68) 100 10/05/18 12:00 Mechanical Ventilator 10/05/18 12:00 99.0 09/29/18 00:00 15.0 Laboratory Tests Test 10/05/18 04:00 White Blood Count 19.5 K/UL (4.8-10.8) H Red Blood Count 2.87 M/UL (4.70-6.10) L Hemoglobin 9.1 G/DL (14.2-18.0) L Hematocrit 27.5 % (42.0-52.0) L Mean Corpuscular Volume 96 FL (80-99) Mean Corpuscular Hemoglobin 31.5 PG (27.0-31.0) H Mean Corpuscular Hemoglobin Concent 32.9 G/DL (32.0-36.0) Red Cell Distribution Width 16.1 % (11.6-14.8) H Platelet Count 230 K/UL (150-450) Mean Platelet Volume 9.7 FL (6.5-10.1) Neutrophils (%) (Auto) % (45.0-75.0) Lymphocytes (%) (Auto) % (20.0-45.0) Monocytes (%) (Auto) % (1.0-10.0) Eosinophils (%) (Auto) % (0.0-3.0) Basophils (%) (Auto) % (0.0-2.0) Differential Total Cells Counted 100 Neutrophils % (Manual) 86 % (45-75) H Lymphocytes % (Manual) 4 % (20-45) L Monocytes % (Manual) 10 % (1-10) Eosinophils % (Manual) 0 % (0-3) Basophils % (Manual) 0 % (0-2) Band Neutrophils 0 % (0-8) Platelet Estimate Adequate Platelet Morphology Normal Anisocytosis 1+ Sodium Level 140 MMOL/L (136-145) Potassium Level 3.6 MMOL/L (3.5-5.1) Chloride Level 108 MMOL/L (98-107) H Carbon Dioxide Level 24 MMOL/L (21-32) Anion Gap 8 mmol/L (5-15) Blood Urea Nitrogen 14 mg/dL (7-18) Creatinine 1.0 MG/DL (0.55-1.30) Estimat Glomerular Filtration Rate > 60 mL/min (>60) Glucose Level 99 MG/DL (74-106) Calcium Level 7.6 MG/DL (8.5-10.1) L Phosphorus Level 3.4 MG/DL (2.5-4.9) Magnesium Level 1.7 MG/DL (1.8-2.4) L Total Bilirubin 0.3 MG/DL (0.2-1.0) Aspartate Amino Transf (AST/SGOT) 14 U/L (15-37) L Alanine Aminotransferase (ALT/SGPT) 9 U/L (12-78) L Alkaline Phosphatase 96 U/L (46-116) Total Protein 5.3 G/DL (6.4-8.2) L Albumin 1.5 G/DL (3.4-5.0) L Globulin 3.8 g/dL Albumin/Globulin Ratio 0.4 (1.0-2.7) L Microbiology Date/Time Source Procedure Growth Status 10/03/18 12:00 Sputum Gram Stain - Final Complete 10/03/18 12:00 Sputum Sputum Culture - Final NORMAL UPPER RESPIRATORY BRIGIDA PRESENT Complete 10/03/18 12:00 Stool Clostridium difficile Toxin Assay - Final Complete Intake and Output 10/04/18 10/05/18 18:59 06:59 Intake Total 1406 ml 1165 ml Output Total 1430 ml 1150 ml Balance -24 ml 15 ml Intake Free Water 110 ml 100 ml IV Total 936 ml 525 ml Tube Feeding 360 ml 480 ml Other 60 ml Output Urine Total 1430 ml 1150 ml # Bowel Movements 2 2 Objective General Appearance: WD/WN, no apparent distress, alert EENT: PERRL/EOMI, normal ENT inspection, TMs normal Neck: non-tender, normal alignment, supple, normal inspection Cardiovascular: Tachy; irreg/irreg; normal peripheral pulses, normal rate, no gallop/murmur, no JVD Respiratory/Chest: Mech vent; chest wall non-tender, lungs clear, coarse upper breath sounds, no respiratory distress, no accessory muscle use Abdomen: normal bowel sounds, non tender, soft, no organomegaly, no mass Extremities: normal range of motion, non-tender Neurologic: rn manager II-XII grossly normal, no motor/sensory deficts Assessment/Plan Assessment/Plan Assessment/Plan Assessment/Plan Problem List: (1) Severe sepsis ICD Codes: A41.9 - Sepsis, unspecified organism; R65.20 - Severe sepsis without septic shock SNOMED: 84006010 (2) Acute alcoholic intoxication ICD Codes: F10.129 - Alcohol abuse with intoxication, unspecified SNOMED: 43155252 (3) Nephrolithiasis ICD Codes: N20.0 - Calculus of kidney SNOMED: 44669541 (4) Hematuria ICD Codes: R31.9 - Hematuria, unspecified SNOMED: 99562280 5. Atrial fibrillation with rapid ventricular rate 6. Respiratory failure/ARDS 7. Urinary tract infection=M 8. Morganella morganii 9. C.Diff diarrhea Assessment/Plan fernandez cultures iv abx banana bag Librium, Seroquel and Klonipin iv abx, ID evaluation Metoprolol drip per Cardiology ICU status Cont mech vent per pulmonary Abx=Cefepime and oral Sanford Pressley MD Oct 05, 2018 15:31
--- NOTE | 2018-10-05 15:38 | NUR ---
NURSE NOTES: Dr Castellano here to see pt. No acute distress. Will continue to monitor.
--- NOTE | 2018-10-05 17:00 | NUR ---
NURSE NOTES: Pt with temp 101. Given tylenol per NGT. Turned on portable fan. Will continue to monitor.
[2018-10-05] MEDS: Cefepime HCl 1 GM in D5W 55 ML IVPB SCH (17:13)
--- NOTE | 2018-10-05 19:06 | NUR ---
HAND-OFF: Report given to Tian HE.
--- NOTE | 2018-10-05 19:26 | NUR ---
RESPIRATORY NOTE: RECEIVED PT ON CURRENT VENT SETTINGS: AC 16 600 +5 40%. PT KEYUR CURRENT VENT SETTINGS WELL. ETT 7.5 AT 23LL SECURE W/ ANCHOR FAST. VENT PLUGGED INTO RED OUTLET. ALARMS ARE ON, AUDIBLE AND FUNCTIONING. NO RESP DISTRESS NOTED. WILL CONTINUE MONITORING PT.
--- NOTE | 2018-10-05 19:45 | NUR ---
NURSE NOTES: PATIENT ALERT, ABLE TO EYE CONTACT, FOLLOW COMMANDS STATUS, ON ETT TO VENT AC16/TV600/FIO2 40%/PEEP 5, SATURATION 100% NOTED, RIGHT NARES NGT INTACT AND PATENT, ONGOING JEVITY 1.2 AT 40ML/HR, NO RESIDUE NOTED, ABDOMEN SOFT, HYPOACTIVE BOWEL SOUND TO 4 QUADRANTS, NO BOWEL MOVEMENT STATUS, F/C INTACT AND PATENT, YELLOW COLOR URINE DRAINING WELL GRAVITY, PICC LINE TO LEFT UPPER ARM, INTACT AND PATENT, ONGOING D5W W/ KCL 20MEQ AT 75ML/HR VIA PICC LINE, 2 POINT SOFT RESTRAINTS FOR SAFETY, KEPT HOB 30 DEGREE, MADE LOWER BED POSITION AND PROVIDED CALL LIGHT WITHIN REACH, WILL CONTINUE TO MONITOR.
[2018-10-05] MEDS: Dyna-Hex 2% Top Sol 2oz TOPIC SCH (19:46)
[2018-10-05] MEDS: Amiodarone 200mg tab ORAL SCH (19:46)
--- NOTE | 2018-10-05 21:12 | Cardiology Progress Note ---
Assessment/Plan Assessment/Plan paroxysmal a fib, converted to sinus rhythm on amiodarone, CXR looks like fluid overload, probably should decrease amount of IVF Subjective Subjective The patient is intubated, more alert today, answers and follows commands Objective Last 24 Hour Vital Signs Date Time Temp Pulse Resp B/P (MAP) Pulse Ox O2 Delivery O2 Flow Rate FiO2 10/05/18 20:40 81 21 40 10/05/18 20:00 Mechanical Ventilator 10/05/18 20:00 98.7 81 19 106/59 (75) 100 10/05/18 20:00 40 10/05/18 19:52 76 10/05/18 19:26 76 23 40 10/05/18 19:00 80 21 99/62 (74) 100 10/05/18 18:00 75 17 94/61 (72) 100 10/05/18 17:22 75 21 40 10/05/18 17:00 78 19 91/53 (66) 100 10/05/18 16:26 100.0 10/05/18 16:00 Mechanical Ventilator 10/05/18 16:00 40 10/05/18 16:00 101.0 80 20 107/62 (77) 100 10/05/18 16:00 81 10/05/18 15:26 79 22 40 10/05/18 15:00 83 22 102/51 (68) 100 10/05/18 14:00 83 19 94/53 (67) 100 10/05/18 13:11 80 22 40 10/05/18 13:00 88 24 109/57 (74) 100 10/05/18 12:00 Mechanical Ventilator 10/05/18 12:00 40 10/05/18 12:00 99.0 86 24 110/61 (77) 100 10/05/18 12:00 86 10/05/18 11:00 84 22 105/52 (69) 100 10/05/18 10:43 86 25 40 10/05/18 10:00 82 22 98/53 (68) 100 10/05/18 09:22 75 18 40 10/05/18 09:00 77 19 95/59 (71) 100 10/05/18 08:00 68 10/05/18 08:00 40 10/05/18 08:00 99.4 81 19 99/55 (70) 98 10/05/18 08:00 Mechanical Ventilator 10/05/18 07:00 83 20 112/60 (77) 100 10/05/18 06:48 83 25 40 10/05/18 06:00 82 20 95/49 (64) 100 10/05/18 05:05 89 20 40 10/05/18 05:00 80 20 104/56 (72) 100 10/05/18 04:00 Mechanical Ventilator 10/05/18 04:00 40 10/05/18 04:00 82 10/05/18 04:00 98.3 81 20 105/58 (74) 100 10/05/18 03:05 80 18 40 10/05/18 03:00 82 18 125/78 (94) 100 10/05/18 02:00 84 19 87/54 (65) 100 10/05/18 01:00 85 21 105/60 (75) 100 10/05/18 00:58 90 23 40 10/05/18 00:01 130/45 10/05/18 00:00 40 10/05/18 00:00 Mechanical Ventilator 10/05/18 00:00 99.1 87 22 95/62 (73) 100 10/05/18 00:00 84 10/04/18 23:05 96 22 40 10/04/18 23:00 94 25 130/45 (73) 100 10/04/18 22:00 88 25 90/58 (69) 100 General Appearance: on vent EENT: PERRL/EOMI Neck: other - unable to assess JVD Rhythm: NSR Cardiovascular: normal rate Respiratory/Chest: rhonchi - bilaterally Abdomen: soft Intake and Output 10/04/18 10/05/18 18:59 06:59 Intake Total 1406 ml 1165 ml Output Total 1430 ml 1150 ml Balance -24 ml 15 ml Intake Free Water 110 ml 100 ml IV Total 936 ml 525 ml Tube Feeding 360 ml 480 ml Other 60 ml Output Urine Total 1430 ml 1150 ml # Bowel Movements 2 2 Laboratory Tests Test 10/05/18 04:00 White Blood Count 19.5 K/UL (4.8-10.8) H Red Blood Count 2.87 M/UL (4.70-6.10) L Hemoglobin 9.1 G/DL (14.2-18.0) L Hematocrit 27.5 % (42.0-52.0) L Mean Corpuscular Volume 96 FL (80-99) Mean Corpuscular Hemoglobin 31.5 PG (27.0-31.0) H Mean Corpuscular Hemoglobin Concent 32.9 G/DL (32.0-36.0) Red Cell Distribution Width 16.1 % (11.6-14.8) H Platelet Count 230 K/UL (150-450) Mean Platelet Volume 9.7 FL (6.5-10.1) Neutrophils (%) (Auto) % (45.0-75.0) Lymphocytes (%) (Auto) % (20.0-45.0) Monocytes (%) (Auto) % (1.0-10.0) Eosinophils (%) (Auto) % (0.0-3.0) Basophils (%) (Auto) % (0.0-2.0) Differential Total Cells Counted 100 Neutrophils % (Manual) 86 % (45-75) H Lymphocytes % (Manual) 4 % (20-45) L Monocytes % (Manual) 10 % (1-10) Eosinophils % (Manual) 0 % (0-3) Basophils % (Manual) 0 % (0-2) Band Neutrophils 0 % (0-8) Platelet Estimate Adequate Platelet Morphology Normal Anisocytosis 1+ Sodium Level 140 MMOL/L (136-145) Potassium Level 3.6 MMOL/L (3.5-5.1) Chloride Level 108 MMOL/L (98-107) H Carbon Dioxide Level 24 MMOL/L (21-32) Anion Gap 8 mmol/L (5-15) Blood Urea Nitrogen 14 mg/dL (7-18) Creatinine 1.0 MG/DL (0.55-1.30) Estimat Glomerular Filtration Rate > 60 mL/min (>60) Glucose Level 99 MG/DL (74-106) Calcium Level 7.6 MG/DL (8.5-10.1) L Phosphorus Level 3.4 MG/DL (2.5-4.9) Magnesium Level 1.7 MG/DL (1.8-2.4) L Total Bilirubin 0.3 MG/DL (0.2-1.0) Aspartate Amino Transf (AST/SGOT) 14 U/L (15-37) L Alanine Aminotransferase (ALT/SGPT) 9 U/L (12-78) L Alkaline Phosphatase 96 U/L (46-116) Total Protein 5.3 G/DL (6.4-8.2) L Albumin 1.5 G/DL (3.4-5.0) L Globulin 3.8 g/dL Albumin/Globulin Ratio 0.4 (1.0-2.7) L Microbiology Date/Time Source Procedure Growth Status 10/03/18 12:00 Sputum Gram Stain - Final Complete 10/03/18 12:00 Sputum Sputum Culture - Final NORMAL UPPER RESPIRATORY BRIGIDA PRESENT Complete 10/03/18 12:00 Stool Clostridium difficile Toxin Assay - Final Complete Alana Ruiz MD Oct 05, 2018 21:12
--- NOTE | 2018-10-05 22:00 | NUR ---
NURSE NOTES: REPOSITIONED, ORAL CARE WAS DONE.
[2018-10-06] VITALS (24 sets, daily range): BP systolic 85–110; BP diastolic 47–70
--- NOTE | 2018-10-06 | NUR ---
NURSE NOTES: RELEASED RESTRAINTS AND REAPPLIED FOR SAFETY, WILL CONTINUE TO MONITOR.
--- NOTE | 2018-10-06 02:10 | NUR ---
NURSE NOTES: PATIENT CALM, ASLEEP STATUS, NO PAIN OR DISTRESS NOTED AT THIS TIME.
--- NOTE | 2018-10-06 04:30 | NUR ---
NURSE NOTES: MORNING CARE WAS DONE, NO BOWEL MOVEMENT AT THIS TIME, WILL CONTINUE PLAN OF CARE.
[2018-10-06] MEDS: chlordiazePOXIDE 25mg Cap NG SCH ×3 (05:37→18:09)
--- NOTE | 2018-10-06 06:30 | NUR ---
NURSE NOTES: NO ACUTE DISTRESS NOTED AT THIS SHIFT.
[2018-10-06 06:46] LABS: HEMATOCRIT 26.4 % (42.0-52.0); HEMOGLOBIN 8.8 G/DL (14.2-18.0); MEAN CORPUSCULAR VOLUME 94 FL (80-99); PLATELET COUNT 287 K/UL (150-450); RED CELL DISTRIBUTION WIDTH 15.8 % (11.6-14.8); WHITE BLOOD COUNT 15.7 K/UL (4.8-10.8)
--- NOTE | 2018-10-06 06:58 | NUR ---
HAND-OFF: Report given to YING GAYLE.
[2018-10-06] MEDS: D5W w/KCl 20mEq 1,000 ML IV SCH (07:12)
--- NOTE | 2018-10-06 07:24 | NUR ---
NURSE NOTES: Report received from Tian RN. Pt alert and oriented x3, able to follow commands. Pt connected to burr filer, SR. Pt orally intubated ETT 7.5, 23 cm, AC 16, TV 600, 40% fiO2 and PEEP 5. NGT to right nare running Jevity at 40 cc/hr. Steen noted and intact draining clear, yellow urine. ROCKY PICC with d5W +20 K at 75 cc/hr. Bilateral soft wrist restraints on. Pt attempts to pull out lines and tubes. Safety measures in place with bed locked and in lowest position, side rails x3 up and bed alarm on. Will continue to monitor and continue plan of care.
[2018-10-06 07:29] LABS: ALANINE AMINOTRANSFERASE 12 U/L (12-78); ALBUMIN 1.5 G/DL (3.4-5.0); ALBUMIN/GLOBULIN RATIO 0.4 (1.0-2.7); ALKALINE PHOSPHATASE 95 U/L (46-116); ANION GAP 9 mmol/L (5-15); ASPARTATE AMINO TRANSFERASE 20 U/L (15-37); BILIRUBIN,TOTAL 0.3 MG/DL (0.2-1.0); BLOOD UREA NITROGEN 15 mg/dL (7-18); CALCIUM 7.9 MG/DL (8.5-10.1); CARBON DIOXIDE 24 MMOL/L (21-32); CHLORIDE 106 MMOL/L (98-107); CREATININE 0.9 MG/DL (0.55-1.30); PHOSPHORUS 3.6 MG/DL (2.5-4.9); POTASSIUM 3.8 MMOL/L (3.5-5.1); SODIUM 139 MMOL/L (136-145)
[2018-10-06] MEDS: Pantoprazole Inj IVP SCH ×2 (08:23→20:44)
[2018-10-06] MEDS: Vancomycin oral 125mg/2.5ml ORAL SCH ×4 (08:23→20:44)
--- NOTE | 2018-10-06 09:15 | NUR ---
NURSE NOTES: Dr Cordova here to see pt. No new orders. Pt turned and repositioned. Pt suctioned and oral care done. No acute distress. Will continue to monitor.
--- NOTE | 2018-10-06 09:33 | Nephrology Progress Note ---
Assessment/Plan Problem List: (1) ATN (acute tubular necrosis) (2) ARDS (adult respiratory distress syndrome) (3) Acute respiratory failure with hypoxemia Assessment (1) Acute respiratory failure with hypoxemia- On Vent (2) ARDS (adult respiratory distress syndrome) (3) ATN (acute tubular necrosis)- resolved (4) Delirium tremens (5) Rapid atrial fibrillation Plan stable from renal stand start feeding by tube Vent support- Librium RTC Keep BP under control Avoid nephrotoxics monitor renal parameters Albumin boluses as needed k and phos and Mag as needed weaning? Subjective ROS Limited/Unobtainable: Yes Objective Objective Last 24 Hour Vital Signs Date Time Temp Pulse Resp B/P (MAP) Pulse Ox O2 Delivery O2 Flow Rate FiO2 10/06/18 09:00 91 20 92/53 (66) 100 10/06/18 08:00 88 10/06/18 08:00 40 10/06/18 08:00 Mechanical Ventilator 10/06/18 08:00 98.8 89 21 108/52 (70) 100 10/06/18 07:10 40 40 10/06/18 07:00 85 19 93/47 (62) 100 10/06/18 06:50 88 20 40 10/06/18 06:00 88 22 110/54 (72) 100 10/06/18 05:07 81 17 40 10/06/18 05:00 83 19 100/59 (73) 100 10/06/18 04:05 80 10/06/18 04:00 99.7 81 19 93/59 (70) 100 10/06/18 04:00 Mechanical Ventilator 10/06/18 04:00 40 10/06/18 03:00 80 17 100/56 (71) 100 10/06/18 03:00 79 19 40 10/06/18 02:00 82 17 90/57 (68) 100 10/06/18 01:00 87 17 103/59 (74) 100 10/06/18 00:56 87 20 40 10/06/18 00:30 106/61 10/06/18 00:00 40 10/06/18 00:00 78 10/06/18 00:00 98.2 78 17 106/61 (76) 100 10/06/18 00:00 Mechanical Ventilator 10/05/18 23:00 87 20 111/58 (75) 100 10/05/18 22:41 74 17 40 10/05/18 22:00 74 18 93/54 (67) 100 10/05/18 21:00 79 21 91/62 (72) 100 10/05/18 20:40 81 21 40 10/05/18 20:00 Mechanical Ventilator 10/05/18 20:00 98.7 81 19 106/59 (75) 100 10/05/18 20:00 40 10/05/18 19:52 76 10/05/18 19:26 76 23 40 10/05/18 19:00 80 21 99/62 (74) 100 10/05/18 18:00 75 17 94/61 (72) 100 10/05/18 17:22 75 21 40 10/05/18 17:00 78 19 91/53 (66) 100 10/05/18 16:26 100.0 10/05/18 16:00 Mechanical Ventilator 10/05/18 16:00 40 10/05/18 16:00 101.0 80 20 107/62 (77) 100 10/05/18 16:00 81 10/05/18 15:26 79 22 40 10/05/18 15:00 83 22 102/51 (68) 100 10/05/18 14:00 83 19 94/53 (67) 100 10/05/18 13:11 80 22 40 10/05/18 13:00 88 24 109/57 (74) 100 10/05/18 12:00 Mechanical Ventilator 10/05/18 12:00 40 10/05/18 12:00 99.0 86 24 110/61 (77) 100 10/05/18 12:00 86 10/05/18 11:00 84 22 105/52 (69) 100 10/05/18 10:43 86 25 40 10/05/18 10:00 82 22 98/53 (68) 100 Intake and Output 10/05/18 10/06/18 19:00 07:00 Intake Total 1435 ml 1435 ml Output Total 820 ml 1900 ml Balance 615 ml -465 ml IV Total 955 ml 825 ml Tube Feeding 480 ml 480 ml Other 130 ml Output Urine Total 820 ml 1900 ml # Bowel Movements 2 Laboratory Tests 10/06/18 05:50: White Blood Count 15.7H, Red Blood Count 2.80L, Hemoglobin 8.8L, Hematocrit 26.4L, Mean Corpuscular Volume 94, Mean Corpuscular Hemoglobin 31.3H, Mean Corpuscular Hemoglobin Concent 33.2, Red Cell Distribution Width 15.8H, Platelet Count 287, Mean Platelet Volume 10.2H, Neutrophils (%) (Auto) , Lymphocytes (%) (Auto) , Monocytes (%) (Auto) , Eosinophils (%) (Auto) , Basophils (%) (Auto) , Differential Total Cells Counted 100, Neutrophils % ( Manual) 88H, Lymphocytes % (Manual) 2L, Monocytes % (Manual) 8, Eosinophils % ( Manual) 2, Basophils % (Manual) 0, Band Neutrophils 0, Platelet Estimate Adequate, Platelet Morphology Normal, Anisocytosis 1+, Sodium Level 139, Potassium Level 3.8, Chloride Level 106, Carbon Dioxide Level 24, Anion Gap 9, Blood Urea Nitrogen 15, Creatinine 0.9, Estimat Glomerular Filtration Rate > 60 , Glucose Level 116H, Calcium Level 7.9L, Phosphorus Level 3.6, Magnesium Level 1.9, Total Bilirubin 0.3, Aspartate Amino Transf (AST/SGOT) 20, Alanine Aminotransferase (ALT/SGPT) 12, Alkaline Phosphatase 95, Total Protein 5.3L, Albumin 1.5L, Globulin 3.8, Albumin/Globulin Ratio 0.4L 10/06/18 08:35: Arterial Blood pH 7.384, Arterial Blood Partial Pressure CO2 37.1, Arterial Blood Partial Pressure O2 101.3H, Arterial Blood HCO3 21.7L, Arterial Blood Oxygen Saturation 96.9, Arterial Blood Base Excess -3.0L, Blaine Test Positive Height (Feet): 5 Height (Inches): 6.00 Weight (Pounds): 157 EENT: other - vented Cardiovascular: other Respiratory/Chest: decreased breath sounds Abdomen: absent bowel sounds Objective no other change Kaden Cordova MD Oct 06, 2018 09:33
--- NOTE | 2018-10-06 09:38 | NUR ---
RADIOLOGY DEPT., CHEST X-RAY DONE.-P.DYE
--- NOTE | 2018-10-06 09:56 | Pulmonolgy Critical Care Note ---
Critical Care - Asmt/Plan Problems: (1) Acute respiratory failure with hypoxemia (2) ARDS (adult respiratory distress syndrome) (3) ATN (acute tubular necrosis) (4) Delirium tremens (5) Rapid atrial fibrillation Respiratory: monitor respiratory rate, adjust FIO2, CXR Cardiac: continue to monitor HR/BP Renal: F/U I&O, decrease IV fluid Infectious Disease: check cultures Gastrointestinal: hold feedings - while extubation Notes Reviewed: cardio 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, consultants, correctional case records supervisoreconomic development manager - Objective Last 24 Hour Vital Signs Date Time Temp Pulse Resp B/P (MAP) Pulse Ox O2 Delivery O2 Flow Rate FiO2 10/06/18 09:00 91 20 92/53 (66) 100 10/06/18 08:00 88 10/06/18 08:00 40 10/06/18 08:00 Mechanical Ventilator 10/06/18 08:00 98.8 89 21 108/52 (70) 100 10/06/18 07:10 40 40 10/06/18 07:00 85 19 93/47 (62) 100 10/06/18 06:50 88 20 40 10/06/18 06:00 88 22 110/54 (72) 100 10/06/18 05:07 81 17 40 10/06/18 05:00 83 19 100/59 (73) 100 10/06/18 04:05 80 10/06/18 04:00 99.7 81 19 93/59 (70) 100 10/06/18 04:00 Mechanical Ventilator 10/06/18 04:00 40 10/06/18 03:00 80 17 100/56 (71) 100 10/06/18 03:00 79 19 40 10/06/18 02:00 82 17 90/57 (68) 100 10/06/18 01:00 87 17 103/59 (74) 100 10/06/18 00:56 87 20 40 10/06/18 00:30 106/61 10/06/18 00:00 40 10/06/18 00:00 78 10/06/18 00:00 98.2 78 17 106/61 (76) 100 10/06/18 00:00 Mechanical Ventilator 10/05/18 23:00 87 20 111/58 (75) 100 10/05/18 22:41 74 17 40 10/05/18 22:00 74 18 93/54 (67) 100 10/05/18 21:00 79 21 91/62 (72) 100 10/05/18 20:40 81 21 40 10/05/18 20:00 Mechanical Ventilator 10/05/18 20:00 98.7 81 19 106/59 (75) 100 10/05/18 20:00 40 10/05/18 19:52 76 10/05/18 19:26 76 23 40 10/05/18 19:00 80 21 99/62 (74) 100 10/05/18 18:00 75 17 94/61 (72) 100 10/05/18 17:22 75 21 40 10/05/18 17:00 78 19 91/53 (66) 100 10/05/18 16:26 100.0 10/05/18 16:00 Mechanical Ventilator 10/05/18 16:00 40 10/05/18 16:00 101.0 80 20 107/62 (77) 100 10/05/18 16:00 81 10/05/18 15:26 79 22 40 10/05/18 15:00 83 22 102/51 (68) 100 10/05/18 14:00 83 19 94/53 (67) 100 10/05/18 13:11 80 22 40 10/05/18 13:00 88 24 109/57 (74) 100 10/05/18 12:00 Mechanical Ventilator 10/05/18 12:00 40 10/05/18 12:00 99.0 86 24 110/61 (77) 100 10/05/18 12:00 86 10/05/18 11:00 84 22 105/52 (69) 100 10/05/18 10:43 86 25 40 10/05/18 10:00 82 22 98/53 (68) 100 Status: sedated Condition: critical Neck: full ROM Lungs: chest wall tender Heart: HR/BP stable Abdomen: soft, non-tender Extremities: no C/C/E Decubiti: location Micro: Microbiology Date/Time Source Procedure Growth Status 10/03/18 12:00 Blood Blood Culture - Preliminary NO GROWTH AFTER 48 HOURS Resulted 10/03/18 12:00 Blood Blood Culture - Preliminary NO GROWTH AFTER 48 HOURS Resulted 10/03/18 12:00 Sputum Gram Stain - Final Complete 10/03/18 12:00 Sputum Sputum Culture - Final NORMAL UPPER RESPIRATORY BRIGIDA PRESENT Complete 10/03/18 12:00 Stool Clostridium difficile Toxin Assay - Final Complete Critical Care - Subjective ROS Limited/Unobtainable: No Condition: critical FI02: 40 Vent Support Breath Rate: 16 Vent Support Mode: AC Vent Tidal Volume: 600 Sputum Amount: Moderate PEEP: 5.0 PIP: 26 Tube Feeding Amount: 40 I&O: Intake and Output 10/05/18 10/06/18 19:00 07:00 Intake Total 1435 ml 1435 ml Output Total 820 ml 1900 ml Balance 615 ml -465 ml IV Total 955 ml 825 ml Tube Feeding 480 ml 480 ml Other 130 ml Output Urine Total 820 ml 1900 ml # Bowel Movements 2 ET-Tube: 7.5 ET Position: 23 Labs: Laboratory Tests Test 10/06/18 05:50 10/06/18 08:35 White Blood Count 15.7 K/UL (4.8-10.8) H Red Blood Count 2.80 M/UL (4.70-6.10) L Hemoglobin 8.8 G/DL (14.2-18.0) L Hematocrit 26.4 % (42.0-52.0) L Mean Corpuscular Volume 94 FL (80-99) Mean Corpuscular Hemoglobin 31.3 PG (27.0-31.0) H Mean Corpuscular Hemoglobin Concent 33.2 G/DL (32.0-36.0) Red Cell Distribution Width 15.8 % (11.6-14.8) H Platelet Count 287 K/UL (150-450) Mean Platelet Volume 10.2 FL (6.5-10.1) H Neutrophils (%) (Auto) % (45.0-75.0) Lymphocytes (%) (Auto) % (20.0-45.0) Monocytes (%) (Auto) % (1.0-10.0) Eosinophils (%) (Auto) % (0.0-3.0) Basophils (%) (Auto) % (0.0-2.0) Differential Total Cells Counted 100 Neutrophils % (Manual) 88 % (45-75) H Lymphocytes % (Manual) 2 % (20-45) L Monocytes % (Manual) 8 % (1-10) Eosinophils % (Manual) 2 % (0-3) Basophils % (Manual) 0 % (0-2) Band Neutrophils 0 % (0-8) Platelet Estimate Adequate Platelet Morphology Normal Anisocytosis 1+ Sodium Level 139 MMOL/L (136-145) Potassium Level 3.8 MMOL/L (3.5-5.1) Chloride Level 106 MMOL/L (98-107) Carbon Dioxide Level 24 MMOL/L (21-32) Anion Gap 9 mmol/L (5-15) Blood Urea Nitrogen 15 mg/dL (7-18) Creatinine 0.9 MG/DL (0.55-1.30) Estimat Glomerular Filtration Rate > 60 mL/min (>60) Glucose Level 116 MG/DL (74-106) H Calcium Level 7.9 MG/DL (8.5-10.1) L Phosphorus Level 3.6 MG/DL (2.5-4.9) Magnesium Level 1.9 MG/DL (1.8-2.4) Total Bilirubin 0.3 MG/DL (0.2-1.0) Aspartate Amino Transf (AST/SGOT) 20 U/L (15-37) Alanine Aminotransferase (ALT/SGPT) 12 U/L (12-78) Alkaline Phosphatase 95 U/L (46-116) Total Protein 5.3 G/DL (6.4-8.2) L Albumin 1.5 G/DL (3.4-5.0) L Globulin 3.8 g/dL Albumin/Globulin Ratio 0.4 (1.0-2.7) L Arterial Blood pH 7.384 (7.350-7.450) Arterial Blood Partial Pressure CO2 37.1 mmHg (35.0-45.0) Arterial Blood Partial Pressure O2 101.3 mmHg (75.0-100.0) H Arterial Blood HCO3 21.7 mmol/L (22.0-26.0) L Arterial Blood Oxygen Saturation 96.9 % (95-100) Arterial Blood Base Excess -3.0 (-2-2) L [place] Test Positive Garret Petty MD Oct 06, 2018 09:56
[2018-10-06] MEDS ORDERED: Haloperidol 5mg/ml Inj IVPB PRN (10:00)
[2018-10-06] MEDS: Cefepime HCl 1 GM in D5W 55 ML IVPB SCH ×2 (10:06→22:11)
[2018-10-06] MEDS ORDERED: Haloperidol Lactate 5 MG in D5W 55 ML IVPB PRN (10:15)
--- NOTE | 2018-10-06 10:18 | NUR ---
NURSE NOTES: Dr Petty here to see pt. Discussed pt latest ABG and CXR. Plan is to extubate later this afternoon after lasix is given and pt is diuresed. Will continue to monitor.
--- NOTE | 2018-10-06 10:43 | Diagnostic Imaging Report ---
Indication: Dyspnea Technique: One view of the chest Comparison: 10/04/2018 Findings: Stable satisfactory positions of endotracheal and nasogastric tubes. Stable diffuse bilateral interstitial and airspace infiltrates versus edema. Left arm PICC is again demonstrated. Findings are unchanged Impression: Unchanged, over 2 days, findings as above.
--- NOTE | 2018-10-06 10:45 | NUR ---
RESPIRATORY NOTE: After 120 minutes on SBT, patient placed back on ordered AC vent settings. No further weaning orders at this time. Patient is stable on AC vent settings. Will monitor patient progress.
[2018-10-06] MEDS: Thiamine HCl 100 MG in D5W 110 ML IVPB SCH (11:10)
--- NOTE | 2018-10-06 12:33 | NUR ---
RESPIRATORY NOTE: Spoke with RN for any update for further weaning and/or extubation order for the patient. At this time, no further weaning or extubation per MD. Will monitor patient progress.
--- NOTE | 2018-10-06 12:57 | Infectious Diseases Prog Note ---
Assessment/Plan Assessment/Plan Assessment: Sepsis/Septic shock- now off pressors -Bcx Neg Probable UTI -u/a wbc 15-20, nit neg, leuk +3; ucx Morganella morganni (R ancef, amp; otherwise S) Fever- probable multifactorial 2ry to alcohol withdrawal, UTI -Bcx NTD Leukocytosis, improving -Cdiff + Etoh intoxication- now ETOH withdrawal w/ DT Acute respiratory failure/ ARDS s/p intubation -CXR Extensive airspace disease again demonstrated without change. Thrombocytopenia- probably in the setting of sepsis and bone marrow suppression 2ry to EtOH Afib w/ RVR KARLA, improving EtOH abuse, nephrolithiasis Plan: -Continue Cefepime #7(abx d #04/16) to cover for probable Amp-C Morganella - Cont PO Vancomycin #09/14-14 for Cdiff colitis -09/29 SP Ceftriaxone #4 -09/26 SP Zosyn x1 -f.u cx -Monitor CBC/CMP, temperatures -aspiration precautions -ETT/ICU care Will continue to follow along with you. Subjective Allergies: Coded Allergies: No Known Allergies (Unverified , 09/06/15) Subjective tm 101; afebrile >24hrs leukocytosis improving fio2 40% off pressors Bcx NTD Objective Vital Signs Last 24 Hour Vital Signs Date Time Temp Pulse Resp B/P (MAP) Pulse Ox O2 Delivery O2 Flow Rate FiO2 10/06/18 11:00 90 20 98/57 (71) 100 10/06/18 10:45 91 20 40 10/06/18 10:00 87 18 98/58 (71) 100 10/06/18 09:00 91 20 92/53 (66) 100 10/06/18 08:45 90 18 40 10/06/18 08:45 100 10/06/18 08:00 88 10/06/18 08:00 40 10/06/18 08:00 Mechanical Ventilator 10/06/18 08:00 98.8 89 21 108/52 (70) 100 10/06/18 07:10 40 40 10/06/18 07:00 85 19 93/47 (62) 100 10/06/18 06:50 88 20 40 10/06/18 06:00 88 22 110/54 (72) 100 10/06/18 05:07 81 17 40 10/06/18 05:00 83 19 100/59 (73) 100 10/06/18 04:05 80 10/06/18 04:00 99.7 81 19 93/59 (70) 100 10/06/18 04:00 Mechanical Ventilator 10/06/18 04:00 40 10/06/18 03:00 80 17 100/56 (71) 100 10/06/18 03:00 79 19 40 10/06/18 02:00 82 17 90/57 (68) 100 10/06/18 01:00 87 17 103/59 (74) 100 10/06/18 00:56 87 20 40 10/06/18 00:30 106/61 10/06/18 00:00 40 10/06/18 00:00 78 10/06/18 00:00 98.2 78 17 106/61 (76) 100 10/06/18 00:00 Mechanical Ventilator 10/05/18 23:00 87 20 111/58 (75) 100 10/05/18 22:41 74 17 40 10/05/18 22:00 74 18 93/54 (67) 100 10/05/18 21:00 79 21 91/62 (72) 100 10/05/18 20:40 81 21 40 10/05/18 20:00 Mechanical Ventilator 10/05/18 20:00 98.7 81 19 106/59 (75) 100 10/05/18 20:00 40 10/05/18 19:52 76 10/05/18 19:26 76 23 40 10/05/18 19:00 80 21 99/62 (74) 100 10/05/18 18:00 75 17 94/61 (72) 100 10/05/18 17:22 75 21 40 10/05/18 17:00 78 19 91/53 (66) 100 10/05/18 16:26 100.0 10/05/18 16:00 Mechanical Ventilator 10/05/18 16:00 40 10/05/18 16:00 101.0 80 20 107/62 (77) 100 10/05/18 16:00 81 10/05/18 15:26 79 22 40 10/05/18 15:00 83 22 102/51 (68) 100 10/05/18 14:00 83 19 94/53 (67) 100 10/05/18 13:11 80 22 40 10/05/18 13:00 88 24 109/57 (74) 100 Height (Feet): 5 Height (Inches): 6.00 Weight (Pounds): 157 Objective General Appearance: WD/WN, confused Lines, tubes and drains: peripheral HEENT: normocephalic, atraumatic Neck: non-tender, supple Respiratory/Chest: chest wall non-tender, lungs clear Cardiovascular/Chest: normal peripheral pulses Abdomen: normal bowel sounds Laboratory Tests Test 10/06/18 05:50 10/06/18 08:35 White Blood Count 15.7 K/UL (4.8-10.8) H Red Blood Count 2.80 M/UL (4.70-6.10) L Hemoglobin 8.8 G/DL (14.2-18.0) L Hematocrit 26.4 % (42.0-52.0) L Mean Corpuscular Volume 94 FL (80-99) Mean Corpuscular Hemoglobin 31.3 PG (27.0-31.0) H Mean Corpuscular Hemoglobin Concent 33.2 G/DL (32.0-36.0) Red Cell Distribution Width 15.8 % (11.6-14.8) H Platelet Count 287 K/UL (150-450) Mean Platelet Volume 10.2 FL (6.5-10.1) H Neutrophils (%) (Auto) % (45.0-75.0) Lymphocytes (%) (Auto) % (20.0-45.0) Monocytes (%) (Auto) % (1.0-10.0) Eosinophils (%) (Auto) % (0.0-3.0) Basophils (%) (Auto) % (0.0-2.0) Differential Total Cells Counted 100 Neutrophils % (Manual) 88 % (45-75) H Lymphocytes % (Manual) 2 % (20-45) L Monocytes % (Manual) 8 % (1-10) Eosinophils % (Manual) 2 % (0-3) Basophils % (Manual) 0 % (0-2) Band Neutrophils 0 % (0-8) Platelet Estimate Adequate Platelet Morphology Normal Anisocytosis 1+ Sodium Level 139 MMOL/L (136-145) Potassium Level 3.8 MMOL/L (3.5-5.1) Chloride Level 106 MMOL/L (98-107) Carbon Dioxide Level 24 MMOL/L (21-32) Anion Gap 9 mmol/L (5-15) Blood Urea Nitrogen 15 mg/dL (7-18) Creatinine 0.9 MG/DL (0.55-1.30) Estimat Glomerular Filtration Rate > 60 mL/min (>60) Glucose Level 116 MG/DL (74-106) H Calcium Level 7.9 MG/DL (8.5-10.1) L Phosphorus Level 3.6 MG/DL (2.5-4.9) Magnesium Level 1.9 MG/DL (1.8-2.4) Total Bilirubin 0.3 MG/DL (0.2-1.0) Aspartate Amino Transf (AST/SGOT) 20 U/L (15-37) Alanine Aminotransferase (ALT/SGPT) 12 U/L (12-78) Alkaline Phosphatase 95 U/L (46-116) Total Protein 5.3 G/DL (6.4-8.2) L Albumin 1.5 G/DL (3.4-5.0) L Globulin 3.8 g/dL Albumin/Globulin Ratio 0.4 (1.0-2.7) L Arterial Blood pH 7.384 (7.350-7.450) Arterial Blood Partial Pressure CO2 37.1 mmHg (35.0-45.0) Arterial Blood Partial Pressure O2 101.3 mmHg (75.0-100.0) H Arterial Blood HCO3 21.7 mmol/L (22.0-26.0) L Arterial Blood Oxygen Saturation 96.9 % (95-100) Arterial Blood Base Excess -3.0 (-2-2) L Blaine Test Positive Current Medications Medications (Trade) Dose Ordered Sig/Hoa Route PRN Reason Start Time Stop Time Status Last Admin Dose Admin Acetaminophen (Tylenol) 650 mg Q4H PRN ORAL fever (temp>100.5F) 09/28/18 03:45 10/26/18 19:44 10/05/18 15:56 Amiodarone HCl (Cordarone) 200 mg Q24H ORAL 10/02/18 20:00 11/01/18 19:59 10/05/18 19:46 Cefepime HCl 1 gm/ Dextrose 55 ml @ 110 mls/hr Q12HR@1000,2200 IVPB 10/06/18 10:00 4/4/19 09:59 10/06/18 10:06 Chlordiazepoxide (Librium) 25 mg Q6HR NG 10/01/18 12:30 10/08/18 12:29 10/06/18 05:37 Chlorhexidine Gluconate (Zainab-Hex 2%) 1 applic DAILY@2000 TOPIC 10/03/18 20:00 11/02/18 19:59 10/05/18 19:46 Dextrose (Dextrose 50%) 25 ml Q30M PRN IV Hypoglycemia 09/28/18 01:30 10/26/18 17:59 Dextrose (Dextrose 50%) 50 ml Q30M PRN IV Hypoglycemia 09/28/18 01:30 10/26/18 17:59 Furosemide (Lasix) 20 mg Q6H PRN IV if hourly urine output <50 10/06/18 10:00 11/05/18 09:59 Haloperidol Lactate 5 mg/ Dextrose 56 ml @ 224 mls/hr Q1H PRN IVPB agitation 10/06/18 10:15 11/05/18 10:14 Metoprolol Tartrate 5 mg/ Dextrose 60 ml @ 130 mls/hr Q6HR PRN IVPB hr greater than 118 09/28/18 09:30 10/28/18 09:29 10/01/18 02:20 Midazolam HCl (Versed 2mg/2ml vial) 1 mg Q1H PRN IVP Agitation 09/28/18 13:00 10/28/18 12:59 10/04/18 22:52 Morphine Sulfate (Morphine Sulfate) 4 mg Q4H PRN IVP For Pain 10/04/18 23:15 10/11/18 23:14 Norepinephrine Bitartrate 4 mg/ Dextrose 250 ml @ 0 mls/hr Q24H IV 09/29/18 00:30 10/29/18 00:29 09/30/18 03:01 Ondansetron HCl (Zofran) 4 mg Q6H PRN IVP Nausea & Vomiting 09/28/18 01:45 10/27/18 19:44 Pantoprazole (Protonix) 40 mg EVERY 12 HOURS IVP 09/29/18 21:00 10/29/18 20:59 10/06/18 08:23 Quetiapine Fumarate (SEROquel) 50 mg Q12HR ORAL 09/28/18 21:00 10/27/18 08:59 10/06/18 08:23 Thiamine HCl 100 mg/Dextrose 111 ml @ 220 mls/hr Q24H IVPB 09/28/18 11:00 10/28/18 10:59 10/06/18 11:10 Vancomycin HCl (Firvanq) 125 mg FOUR TIMES A DAY ORAL 10/04/18 13:00 10/11/18 12:59 10/06/18 08:23 Jes Taylor M.D. Oct 06, 2018 12:57
--- NOTE | 2018-10-06 13:18 | NUR ---
NURSE NOTES: So far 1300 ml out of valle after 1st dose of lasix given. No acute distress. Will continue to monitor.
--- NOTE | 2018-10-06 13:27 | NUR ---
RD ASSESSMENT & RECOMMENDATIONS SEE CARE ACTIVITY FOR COMPLETE ASSESSMENT DAILY ESTIMATED NEEDS: Needs based on Critcal care 70kg 22-28 kcals/kg 2747-7510 total kcals 1.2-2 g protein/kg 84-140 g total protein 25-30 mL/kg 4241-3649 total fluid mLs NUTRITION DIAGNOSIS: 1) Swallowing difficulty r/t respiratory status as evidenced by s/p oral intubation, on NGT feeding. 2) Altered nutrition related lab values r/t clinical status as evidenced by low pH-> now wnl, elev WBC (22->15.7), elev Na (147- wnl), Low K (3.3-> wnl), low Mg (1.5-> wnl), elev BG (216-> 116 96), elev phos (5.4-> wnl), elev BNP (1636), and elev serum alcohol on adm. CURRENT TF:Jevity 1.2 @ 40ml/hr x 24 hrs PO DIET RECOMMENDATIONS: INCLUSION TEACHER EVAL POST EXTUBATION -> Regular/ texture per INCLUSION TEACHER ENTERAL NUTRITION RECOMMENDATIONS: Jevity 1.2 @ 60ml/hr x 24 hrs + Prosource 1pkt QD to provide 1440ml, 1728kcal, 80 +11g prot, 1162ml free water - Increase goal rate to 60ml/hr x 24 hrs. - Add Prosource 1pkt QD to meet protein needs - Flush per MD. HOB over 30 degrees ADDITIONAL RECOMMENDATIONS: 1) Monitor HD stablity- off pressors at this time 2) Continue w/ thiamine 3) Monitor lytes, replete as needed 4) Calibrated bedscale wts. 5) INCLUSION TEACHER eval post extubation
--- NOTE | 2018-10-06 14:15 | NUR ---
NURSE NOTES: SBP in 80s. Will continue to monitor.
--- NOTE | 2018-10-06 15:59 | NUR ---
NURSE NOTES: Pt turned and repositioned. VSS. Will continue to monitor.
--- NOTE | 2018-10-06 16:57 | NUR ---
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 ARF . ETOH WITHDRAWAL w/ DT VS: BP 85/50, P 88, T 98.2, RR 19, SpO2 100 on VENT AC 16, TV 600, PEEP 5.0, FiO2 40 WBC 15.7, RBC 2.80, HGB 8.8, HCT 26.4, pO2 101.3, HCO3 21.7 CXR Stable satisfactory positions of endotracheal and nasogastric tubes. Stable diffuse bilateral interstitial and airspace infiltrates versus edema. Left arm PICC is again demonstrated. Findings are unchanged. IS:CEFEPIME 55ml IVPB LASIX 20mg IV VANCOMYCIN 125 mg LIBRIUM 25mg NG D5/ELECTROLYTES x1L IV PROTONIX 40mg IVP ICU STATUS
--- NOTE | 2018-10-06 18:41 | Internal Med Progress Note ---
Subjective Date of Service: Oct 06, 2018 Physician Name Sanford Castellano Attending Physician Benjamin Sterling MD Current Medications Medications (Trade) Dose Ordered Sig/Hoa Route PRN Reason Start Time Stop Time Status Last Admin Dose Admin Acetaminophen (Tylenol) 650 mg Q4H PRN ORAL fever (temp>100.5F) 09/28/18 03:45 10/26/18 19:44 10/05/18 15:56 Amiodarone HCl (Cordarone) 200 mg Q24H ORAL 10/02/18 20:00 11/01/18 19:59 10/05/18 19:46 Cefepime HCl 1 gm/ Dextrose 55 ml @ 110 mls/hr Q12HR@1000,2200 IVPB 10/06/18 10:00 10/09/18 09:59 10/06/18 10:06 Chlordiazepoxide (Librium) 25 mg Q6HR NG 10/01/18 12:30 10/08/18 12:29 10/06/18 18:09 Chlorhexidine Gluconate (Zainab-Hex 2%) 1 applic DAILY@2000 TOPIC 10/03/18 20:00 11/02/18 19:59 10/05/18 19:46 Dextrose (Dextrose 50%) 25 ml Q30M PRN IV Hypoglycemia 09/28/18 01:30 10/26/18 17:59 Dextrose (Dextrose 50%) 50 ml Q30M PRN IV Hypoglycemia 09/28/18 01:30 10/26/18 17:59 Furosemide (Lasix) 20 mg Q6H PRN IV if hourly urine output <50 10/06/18 10:00 11/05/18 09:59 10/06/18 16:12 Haloperidol Lactate 5 mg/ Dextrose 56 ml @ 224 mls/hr Q1H PRN IVPB agitation 10/06/18 10:15 11/05/18 10:14 Metoprolol Tartrate 5 mg/ Dextrose 60 ml @ 130 mls/hr Q6HR PRN IVPB hr greater than 118 09/28/18 09:30 10/28/18 09:29 10/01/18 02:20 Midazolam HCl (Versed 2mg/2ml vial) 1 mg Q1H PRN IVP Agitation 09/28/18 13:00 10/28/18 12:59 10/04/18 22:52 Morphine Sulfate (Morphine Sulfate) 4 mg Q4H PRN IVP For Pain 10/04/18 23:15 10/11/18 23:14 Norepinephrine Bitartrate 4 mg/ Dextrose 250 ml @ 0 mls/hr Q24H IV 09/29/18 00:30 10/29/18 00:29 09/30/18 03:01 Ondansetron HCl (Zofran) 4 mg Q6H PRN IVP Nausea & Vomiting 09/28/18 01:45 10/27/18 19:44 Pantoprazole (Protonix) 40 mg EVERY 12 HOURS IVP 09/29/18 21:00 10/29/18 20:59 10/06/18 08:23 Quetiapine Fumarate (SEROquel) 50 mg Q12HR ORAL 09/28/18 21:00 10/27/18 08:59 10/06/18 08:23 Thiamine HCl 100 mg/Dextrose 111 ml @ 220 mls/hr Q24H IVPB 09/28/18 11:00 10/28/18 10:59 10/06/18 11:10 Vancomycin HCl (Firvanq) 125 mg FOUR TIMES A DAY ORAL 10/04/18 13:00 10/11/18 12:59 10/06/18 18:09 Allergies: Coded Allergies: No Known Allergies (Unverified , 09/06/15) ROS Limited/Unobtainable: Yes Subjective 68 YO M admitted with hematuria and hypotension. Now atrial fibrillation with rapid ventricular rate. Cover for Int Ash-Dr Sterling. ICU. Intubated and sedated Objective Last Vital Signs Date Time Temp Pulse Resp B/P (MAP) Pulse Ox O2 Delivery O2 Flow Rate FiO2 10/06/18 18:00 101 16 105/70 (82) 100 10/06/18 17:00 98.7 10/06/18 16:42 40 10/06/18 16:00 Mechanical Ventilator 09/29/18 00:00 15.0 Laboratory Tests Test 10/06/18 05:50 10/06/18 08:35 White Blood Count 15.7 K/UL (4.8-10.8) H Red Blood Count 2.80 M/UL (4.70-6.10) L Hemoglobin 8.8 G/DL (14.2-18.0) L Hematocrit 26.4 % (42.0-52.0) L Mean Corpuscular Volume 94 FL (80-99) Mean Corpuscular Hemoglobin 31.3 PG (27.0-31.0) H Mean Corpuscular Hemoglobin Concent 33.2 G/DL (32.0-36.0) Red Cell Distribution Width 15.8 % (11.6-14.8) H Platelet Count 287 K/UL (150-450) Mean Platelet Volume 10.2 FL (6.5-10.1) H Neutrophils (%) (Auto) % (45.0-75.0) Lymphocytes (%) (Auto) % (20.0-45.0) Monocytes (%) (Auto) % (1.0-10.0) Eosinophils (%) (Auto) % (0.0-3.0) Basophils (%) (Auto) % (0.0-2.0) Differential Total Cells Counted 100 Neutrophils % (Manual) 88 % (45-75) H Lymphocytes % (Manual) 2 % (20-45) L Monocytes % (Manual) 8 % (1-10) Eosinophils % (Manual) 2 % (0-3) Basophils % (Manual) 0 % (0-2) Band Neutrophils 0 % (0-8) Platelet Estimate Adequate Platelet Morphology Normal Anisocytosis 1+ Sodium Level 139 MMOL/L (136-145) Potassium Level 3.8 MMOL/L (3.5-5.1) Chloride Level 106 MMOL/L (98-107) Carbon Dioxide Level 24 MMOL/L (21-32) Anion Gap 9 mmol/L (5-15) Blood Urea Nitrogen 15 mg/dL (7-18) Creatinine 0.9 MG/DL (0.55-1.30) Estimat Glomerular Filtration Rate > 60 mL/min (>60) Glucose Level 116 MG/DL (74-106) H Calcium Level 7.9 MG/DL (8.5-10.1) L Phosphorus Level 3.6 MG/DL (2.5-4.9) Magnesium Level 1.9 MG/DL (1.8-2.4) Total Bilirubin 0.3 MG/DL (0.2-1.0) Aspartate Amino Transf (AST/SGOT) 20 U/L (15-37) Alanine Aminotransferase (ALT/SGPT) 12 U/L (12-78) Alkaline Phosphatase 95 U/L (46-116) Total Protein 5.3 G/DL (6.4-8.2) L Albumin 1.5 G/DL (3.4-5.0) L Globulin 3.8 g/dL Albumin/Globulin Ratio 0.4 (1.0-2.7) L Arterial Blood pH 7.384 (7.350-7.450) Arterial Blood Partial Pressure CO2 37.1 mmHg (35.0-45.0) Arterial Blood Partial Pressure O2 101.3 mmHg (75.0-100.0) H Arterial Blood HCO3 21.7 mmol/L (22.0-26.0) L Arterial Blood Oxygen Saturation 96.9 % (95-100) Arterial Blood Base Excess -3.0 (-2-2) L Blaine Test Positive Intake and Output 10/05/18 10/06/18 19:00 07:00 Intake Total 1435 ml 1435 ml Output Total 820 ml 1900 ml Balance 615 ml -465 ml IV Total 955 ml 825 ml Tube Feeding 480 ml 480 ml Other 130 ml Output Urine Total 820 ml 1900 ml # Bowel Movements 2 Objective General Appearance: WD/WN, no apparent distress, alert EENT: PERRL/EOMI, normal ENT inspection, TMs normal Neck: non-tender, normal alignment, supple, normal inspection Cardiovascular: Tachy; irreg/irreg; normal peripheral pulses, normal rate, no gallop/murmur, no JVD Respiratory/Chest: Mech vent; chest wall non-tender, lungs clear, coarse upper breath sounds, no respiratory distress, no accessory muscle use Abdomen: normal bowel sounds, non tender, soft, no organomegaly, no mass Extremities: normal range of motion, non-tender Neurologic: bead wire taper II-XII grossly normal, no motor/sensory deficts Assessment/Plan Assessment/Plan Assessment/Plan Assessment/Plan Problem List: (1) Severe sepsis ICD Codes: A41.9 - Sepsis, unspecified organism; R65.20 - Severe sepsis without septic shock SNOMED: 07436042 (2) Acute alcoholic intoxication ICD Codes: F10.129 - Alcohol abuse with intoxication, unspecified SNOMED: 31403000 (3) Nephrolithiasis ICD Codes: N20.0 - Calculus of kidney SNOMED: 14718938 (4) Hematuria ICD Codes: R31.9 - Hematuria, unspecified SNOMED: 54989461 5. Atrial fibrillation with rapid ventricular rate 6. Respiratory failure/ARDS 7. Urinary tract infection=M 8. Morganella morganii 9. C.Diff diarrhea Assessment/Plan fernandez cultures iv abx banana bag Librium, Seroquel and Klonipin iv abx, ID evaluation Metoprolol drip per Cardiology ICU status Cont mech vent per pulmonary Abx=Cefepime and oral Sanford Pressley MD Oct 06, 2018 18:41
--- NOTE | 2018-10-06 18:59 | NUR ---
RESPIRATORY NOTE: Received pt on AC 16, 600VT, 40%, PEEP +5. Pt intubated w/ ETT 7.5 @ 23cm lipline, secured by anchorfast. Pt awake/alert, needs little reinforcement to follow commands. B/S kandi. rhonchi, sxn moderate amounts of thick, clear-white to pale-yellow secretions. Both hands on soft restraints to prevent pt from self-extubation. Vent plugged into red outlet, ambubag at bedside. Pt in no apparent distress at this time. Will continue to monitor pt.
--- NOTE | 2018-10-06 19:16 | NUR ---
HAND-OFF: Report given to [facility].
--- NOTE | 2018-10-06 19:30 | NUR ---
NURSE NOTES: Report received from YING Arizmendi. Pt alert, confused, [place]ian speaking, able to follow commands. Pt connected to cardiac specialist, SR. Pt orally intubated ETT 7.5, 23 cm, AC 16, TV 600, 40% fiO2 and PEEP 5. NGT to right nare running Jevity at 40 cc/hr, no residual noted. Steen noted and intact draining clear, yellow urine. Left UA PICC TKO. Bilateral soft wrist restraints on. Pt attempts to pull out lines and tubes. Safety measures in place with bed locked and in lowest position, side rails x3 up and bed alarm on. HOB kept elevated. Will continue to monitor and continue plan of care.
--- NOTE | 2018-10-06 19:39 | Cardiology Progress Note ---
Assessment/Plan Assessment/Plan tachy ? 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 reviewed y wean to extubate tomorrow diuretic s Subjective ROS Limited/Unobtainable: Yes Subjective intuabeted awke but not reasly respond Objective Last 24 Hour Vital Signs Date Time Temp Pulse Resp B/P (MAP) Pulse Ox O2 Delivery O2 Flow Rate FiO2 10/06/18 19:00 99 22 106/57 (73) 100 10/06/18 18:57 102 21 40 10/06/18 18:00 101 16 105/70 (82) 100 10/06/18 18:00 98 23 105/70 (82) 100 10/06/18 17:00 98.7 97 22 104/69 (81) 100 10/06/18 16:42 92 18 40 10/06/18 16:00 92 22 107/52 (70) 100 10/06/18 16:00 Mechanical Ventilator 10/06/18 16:00 88 10/06/18 16:00 40 10/06/18 15:00 86 20 89/50 (63) 99 10/06/18 14:44 88 20 40 10/06/18 14:00 88 19 85/50 (62) 100 10/06/18 13:00 93 22 99/49 (66) 100 10/06/18 12:33 86 20 40 10/06/18 12:00 Mechanical Ventilator 10/06/18 12:00 98.2 79 19 91/55 (67) 100 10/06/18 12:00 81 10/06/18 12:00 40 10/06/18 11:00 90 20 98/57 (71) 100 10/06/18 10:45 91 20 40 10/06/18 10:00 87 18 98/58 (71) 100 10/06/18 09:00 91 20 92/53 (66) 100 10/06/18 08:45 90 18 40 10/06/18 08:45 100 10/06/18 08:00 88 10/06/18 08:00 40 10/06/18 08:00 Mechanical Ventilator 10/06/18 08:00 98.8 89 21 108/52 (70) 100 10/06/18 07:10 40 40 10/06/18 07:00 85 19 93/47 (62) 100 10/06/18 06:50 88 20 40 10/06/18 06:00 88 22 110/54 (72) 100 10/06/18 05:07 81 17 40 10/06/18 05:00 83 19 100/59 (73) 100 10/06/18 04:05 80 10/06/18 04:00 99.7 81 19 93/59 (70) 100 10/06/18 04:00 Mechanical Ventilator 10/06/18 04:00 40 10/06/18 03:00 80 17 100/56 (71) 100 10/06/18 03:00 79 19 40 10/06/18 02:00 82 17 90/57 (68) 100 10/06/18 01:00 87 17 103/59 (74) 100 10/06/18 00:56 87 20 40 10/06/18 00:30 106/61 10/06/18 00:00 40 10/06/18 00:00 78 10/06/18 00:00 98.2 78 17 106/61 (76) 100 10/06/18 00:00 Mechanical Ventilator 10/05/18 23:00 87 20 111/58 (75) 100 10/05/18 22:41 74 17 40 10/05/18 22:00 74 18 93/54 (67) 100 10/05/18 21:00 79 21 91/62 (72) 100 10/05/18 20:40 81 21 40 10/05/18 20:00 Mechanical Ventilator 10/05/18 20:00 98.7 81 19 106/59 (75) 100 10/05/18 20:00 40 10/05/18 19:52 76 General Appearance: no apparent distress, alert, on vent, patient on isolation Neck: supple Cardiovascular: normal rate Respiratory/Chest: lungs clear Abdomen: normal bowel sounds, non tender, soft Extremities: no swelling Intake and Output 10/05/18 10/06/18 18:59 06:59 Intake Total 1380 ml 1565 ml Output Total 830 ml 1890 ml Balance 550 ml -325 ml IV Total 900 ml 955 ml Tube Feeding 480 ml 480 ml Other 130 ml Output Urine Total 830 ml 1890 ml # Bowel Movements 2 Laboratory Tests Test 4/1/19 05:50 10/06/18 08:35 White Blood Count 15.7 K/UL (4.8-10.8) H Red Blood Count 2.80 M/UL (4.70-6.10) L Hemoglobin 8.8 G/DL (14.2-18.0) L Hematocrit 26.4 % (42.0-52.0) L Mean Corpuscular Volume 94 FL (80-99) Mean Corpuscular Hemoglobin 31.3 PG (27.0-31.0) H Mean Corpuscular Hemoglobin Concent 33.2 G/DL (32.0-36.0) Red Cell Distribution Width 15.8 % (11.6-14.8) H Platelet Count 287 K/UL (150-450) Mean Platelet Volume 10.2 FL (6.5-10.1) H Neutrophils (%) (Auto) % (45.0-75.0) Lymphocytes (%) (Auto) % (20.0-45.0) Monocytes (%) (Auto) % (1.0-10.0) Eosinophils (%) (Auto) % (0.0-3.0) Basophils (%) (Auto) % (0.0-2.0) Differential Total Cells Counted 100 Neutrophils % (Manual) 88 % (45-75) H Lymphocytes % (Manual) 2 % (20-45) L Monocytes % (Manual) 8 % (1-10) Eosinophils % (Manual) 2 % (0-3) Basophils % (Manual) 0 % (0-2) Band Neutrophils 0 % (0-8) Platelet Estimate Adequate Platelet Morphology Normal Anisocytosis 1+ Sodium Level 139 MMOL/L (136-145) Potassium Level 3.8 MMOL/L (3.5-5.1) Chloride Level 106 MMOL/L (98-107) Carbon Dioxide Level 24 MMOL/L (21-32) Anion Gap 9 mmol/L (5-15) Blood Urea Nitrogen 15 mg/dL (7-18) Creatinine 0.9 MG/DL (0.55-1.30) Estimat Glomerular Filtration Rate > 60 mL/min (>60) Glucose Level 116 MG/DL (74-106) H Calcium Level 7.9 MG/DL (8.5-10.1) L Phosphorus Level 3.6 MG/DL (2.5-4.9) Magnesium Level 1.9 MG/DL (1.8-2.4) Total Bilirubin 0.3 MG/DL (0.2-1.0) Aspartate Amino Transf (AST/SGOT) 20 U/L (15-37) Alanine Aminotransferase (ALT/SGPT) 12 U/L (12-78) Alkaline Phosphatase 95 U/L (46-116) Total Protein 5.3 G/DL (6.4-8.2) L Albumin 1.5 G/DL (3.4-5.0) L Globulin 3.8 g/dL Albumin/Globulin Ratio 0.4 (1.0-2.7) L Arterial Blood pH 7.384 (7.350-7.450) Arterial Blood Partial Pressure CO2 37.1 mmHg (35.0-45.0) Arterial Blood Partial Pressure O2 101.3 mmHg (75.0-100.0) H Arterial Blood HCO3 21.7 mmol/L (22.0-26.0) L Arterial Blood Oxygen Saturation 96.9 % (95-100) Arterial Blood Base Excess -3.0 (-2-2) L [place] Test Positive Mumtaz Leon MD Oct 06, 2018 19:39
[2018-10-06] MEDS: Dyna-Hex 2% Top Sol 2oz TOPIC SCH (20:44)
[2018-10-06] MEDS: Amiodarone 200mg tab ORAL SCH (20:44)
--- NOTE | 2018-10-06 22:00 | NUR ---
NURSE NOTES: Pt's resting in bed, watching TV, in no acute distress. VS stable. Will continue to monitor.
[2018-10-07] VITALS (24 sets, daily range): BP systolic 85–134; BP diastolic 48–91
--- NOTE | 2018-10-07 | NUR ---
NURSE NOTES: Pt's resting in bed, in no acute distress. VS stable. Will continue to monitor
[2018-10-07] MEDS: chlordiazePOXIDE 25mg Cap NG SCH ×2 (00:29→06:07)
--- NOTE | 2018-10-07 02:00 | NUR ---
NURSE NOTES: Pt's resting in bed, asleep with eyes closed, in no acute distress. VS stable. Will continue to monitor.
--- NOTE | 2018-10-07 04:00 | NUR ---
NURSE NOTES: Pt's resting in bed, asleep with eyes closed, in no acute distress. VS stable. Will continue to monitor.
[2018-10-07 04:18] LABS: BASOPHILS % (AUTO) 1.2 % (0.0-2.0); EOSINOPHILS % (AUTO) 3.5 % (0.0-3.0); HEMOGLOBIN 8.3 G/DL (14.2-18.0); LYMPHOCYTES % (AUTO) 12.8 % (20.0-45.0); MEAN CORPUSCULAR VOLUME 94 FL (80-99); MONOCYTES % (AUTO) 6.7 % (1.0-10.0); NEUTROPHILS % (AUTO) 75.8 % (45.0-75.0); PLATELET COUNT 318 K/UL (150-450); RED BLOOD COUNT 2.66 M/UL (4.70-6.10); RED CELL DISTRIBUTION WIDTH 15.7 % (11.6-14.8); WHITE BLOOD COUNT 10.6 K/UL (4.8-10.8)
[2018-10-07 04:43] LABS: ALANINE AMINOTRANSFERASE 7 U/L (12-78); ALBUMIN 1.5 G/DL (3.4-5.0); ALBUMIN/GLOBULIN RATIO 0.4 (1.0-2.7); ALKALINE PHOSPHATASE 87 U/L (46-116); ANION GAP 8 mmol/L (5-15); ASPARTATE AMINO TRANSFERASE 16 U/L (15-37); BILIRUBIN,TOTAL 0.3 MG/DL (0.2-1.0); BLOOD UREA NITROGEN 16 mg/dL (7-18); CARBON DIOXIDE 28 MMOL/L (21-32); CHLORIDE 106 MMOL/L (98-107); CREATININE 1.1 MG/DL (0.55-1.30); PHOSPHORUS 4.3 MG/DL (2.5-4.9); POTASSIUM 3.8 MMOL/L (3.5-5.1); SODIUM 142 MMOL/L (136-145)
--- NOTE | 2018-10-07 06:00 | NUR ---
NURSE NOTES: Pt's resting in bed, asleep. VS stable,in no acute distress. Will continue to monitor.
--- NOTE | 2018-10-07 07:24 | NUR ---
HAND-OFF: Report given to YING Rivers.
--- NOTE | 2018-10-07 07:29 | NUR ---
NURSE NOTES: Received the patient from [facility]. Patient asleep, easily arousable.Orally intubated ETT size 7.5, 23cm at lip line. vent settings: AC 16, TV 600, FIO2 40%, PEEP 5. SR noted on the desk monitor. Right nare NGT intact and patent, stopped tube feeding for possible extubation today. HOB elevated. Steen cath intact and patent, draining yellow urine by gravity. Left upper PICC intact and patent, TKO. Patient on bilateral soft wrist restraints. No skin breakdown noted. pulses present. SCDs on bilateral lower extremities. Bed in lowest position, locked, side rails upx3. Bed alarms on. Call light within reach. Will continue to monitor.
--- NOTE | 2018-10-07 07:52 | NUR ---
RESPIRATORY NOTE: Received pt on AC 16, 600VT, 40%, PEEP +5. Pt intubated w/ ETT 7.5 @ 23cm lipline, secured by anchorfast. Vent plugged into red outlet, ambubag at bedside. Pt in no apparent distress at this time. Will continue to monitor pt.
--- NOTE | 2018-10-07 08:33 | NUR ---
RADIOLOGY DEPT., CHEST X-RAY DONE.-P.DYE
[2018-10-07] MEDS: Vancomycin oral 125mg/2.5ml ORAL SCH ×4 (08:59→20:39)
[2018-10-07] MEDS: Pantoprazole Inj IVP SCH ×2 (08:59→20:39)
[2018-10-07] MEDS: Cefepime HCl 1 GM in D5W 55 ML IVPB SCH (09:02)
--- NOTE | 2018-10-07 09:36 | Nephrology Progress Note ---
Assessment/Plan Problem List: (1) ATN (acute tubular necrosis) (2) ARDS (adult respiratory distress syndrome) (3) Acute respiratory failure with hypoxemia Assessment (1) Acute respiratory failure with hypoxemia- On Vent (2) ARDS (adult respiratory distress syndrome) (3) ATN (acute tubular necrosis)- resolved (4) Delirium tremens (5) Rapid atrial fibrillation Plan stable from renal stand feeding by tube Vent support- weaning?? Librium PRN Keep BP under control Avoid nephrotoxics monitor renal parameters Albumin boluses as needed k and phos and Mag as needed Subjective ROS Limited/Unobtainable: Yes Objective Objective Last 24 Hour Vital Signs Date Time Temp Pulse Resp B/P (MAP) Pulse Ox O2 Delivery O2 Flow Rate FiO2 10/07/18 09:07 110 16 10/07/18 09:00 96 24 124/54 (77) 100 10/07/18 08:00 98.8 78 24 99/52 (68) 100 10/07/18 08:00 40 10/07/18 08:00 77 10/07/18 08:00 40 40 10/07/18 08:00 100 10/07/18 08:00 Mechanical Ventilator 10/07/18 07:27 77 16 40 10/07/18 07:00 80 18 96/53 (67) 100 10/07/18 06:00 80 18 95/56 (69) 100 10/07/18 05:07 80 18 40 10/07/18 05:00 80 18 94/56 (69) 100 10/07/18 04:00 80 18 88/56 (67) 100 10/07/18 04:00 74 10/07/18 04:00 Mechanical Ventilator 10/07/18 04:00 40 10/07/18 03:16 79 19 40 10/07/18 03:00 82 19 127/91 (103) 100 10/07/18 02:00 98.8 85 19 92/51 (65) 100 10/07/18 01:15 86 19 40 10/07/18 01:00 89 16 111/59 (76) 100 10/07/18 00:29 94/55 10/07/18 00:00 40 10/07/18 00:00 Mechanical Ventilator 10/07/18 00:00 89 16 100/55 (70) 100 10/07/18 00:00 80 10/06/18 23:13 93 16 40 10/06/18 23:00 89 16 95/52 (66) 100 10/06/18 22:00 98 21 101/58 (72) 100 10/06/18 21:23 88 18 40 10/06/18 21:00 99.0 93 20 94/47 (63) 100 10/06/18 20:00 87 10/06/18 20:00 40 10/06/18 20:00 88 22 98/54 (69) 100 10/06/18 20:00 Mechanical Ventilator 10/06/18 19:00 99 22 106/57 (73) 100 10/06/18 18:57 102 21 40 10/06/18 18:00 101 16 105/70 (82) 100 10/06/18 18:00 98 23 105/70 (82) 100 10/06/18 17:00 98.7 97 22 104/69 (81) 100 10/06/18 16:42 92 18 40 10/06/18 16:00 92 22 107/52 (70) 100 10/06/18 16:00 Mechanical Ventilator 10/06/18 16:00 88 10/06/18 16:00 40 10/06/18 15:00 86 20 89/50 (63) 99 10/06/18 14:44 88 20 40 10/06/18 14:00 88 19 85/50 (62) 100 10/06/18 13:00 93 22 99/49 (66) 100 10/06/18 12:33 86 20 40 10/06/18 12:00 Mechanical Ventilator 10/06/18 12:00 98.2 79 19 91/55 (67) 100 10/06/18 12:00 81 10/06/18 12:00 40 10/06/18 11:00 90 20 98/57 (71) 100 10/06/18 10:45 91 20 40 10/06/18 10:00 87 18 98/58 (71) 100 Intake and Output 10/06/18 10/07/18 19:00 07:00 Intake Total 646 ml 635 ml Output Total 3890 ml 1600 ml Balance -3244 ml -965 ml Intake Free Water 100 ml IV Total 166 ml 55 ml Tube Feeding 480 ml 480 ml Output Urine Total 3890 ml 1600 ml Laboratory Tests 10/07/18 03:30: White Blood Count 10.6, Red Blood Count 2.66L, Hemoglobin 8.3L, Hematocrit 25.0L , Mean Corpuscular Volume 94, Mean Corpuscular Hemoglobin 31.2H, Mean Corpuscular Hemoglobin Concent 33.3, Red Cell Distribution Width 15.7H, Platelet Count 318, Mean Platelet Volume 9.6, Neutrophils (%) (Auto) 75.8H, Lymphocytes (%) (Auto) 12.8L, Monocytes (%) (Auto) 6.7, Eosinophils (%) (Auto) 3.5H, Basophils (%) (Auto) 1.2, Sodium Level 142, Potassium Level 3.8, Chloride Level 106, Carbon Dioxide Level 28, Anion Gap 8, Blood Urea Nitrogen 16, Creatinine 1.1, Estimat Glomerular Filtration Rate > 60, Glucose Level 107H, Calcium Level 8.0L, Phosphorus Level 4.3, Magnesium Level 1.7L, Total Bilirubin 0.3, Aspartate Amino Transf (AST/SGOT) 16, Alanine Aminotransferase (ALT/SGPT) 7L, Alkaline Phosphatase 87, Total Protein 5.5L, Albumin 1.5L, Globulin 4.0, Albumin/Globulin Ratio 0.4L Height (Feet): 5 Height (Inches): 6.00 Weight (Pounds): 157 EENT: other - vented Cardiovascular: tachycardia Respiratory/Chest: decreased breath sounds Abdomen: distended Objective no other change Kaden Cordova MD Oct 07, 2018 09:36
[2018-10-07] MEDS ORDERED: chlordiazePOXIDE 25mg Cap NG PRN (09:45)
--- NOTE | 2018-10-07 09:59 | Diagnostic Imaging Report ---
Indication: Dyspnea Technique: One view of the chest Comparison: 10/06/2018 Findings: Stable satisfactory positions of endotracheal and nasogastric tubes. Diffuse bilateral interstitial and airspace disease is unchanged. Left arm PICC again demonstrated Impression: Unchanged, over one day, findings as above.
--- NOTE | 2018-10-07 10:00 | NUR ---
NURSE NOTES: FIO2 changed to 30% per Dr. Petty. RT made aware.
--- NOTE | 2018-10-07 10:08 | Pulmonolgy Critical Care Note ---
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, 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, 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 - Objective Last 24 Hour Vital Signs Date Time Temp Pulse Resp B/P (MAP) Pulse Ox O2 Delivery O2 Flow Rate FiO2 10/07/18 09:07 110 16 10/07/18 09:00 96 24 124/54 (77) 100 10/07/18 08:00 98.8 78 24 99/52 (68) 100 10/07/18 08:00 40 10/07/18 08:00 77 10/07/18 08:00 40 40 10/07/18 08:00 100 10/07/18 08:00 Mechanical Ventilator 10/07/18 07:27 77 16 40 10/07/18 07:00 80 18 96/53 (67) 100 10/07/18 06:00 80 18 95/56 (69) 100 10/07/18 05:07 80 18 40 10/07/18 05:00 80 18 94/56 (69) 100 10/07/18 04:00 80 18 88/56 (67) 100 10/07/18 04:00 74 10/07/18 04:00 Mechanical Ventilator 10/07/18 04:00 40 10/07/18 03:16 79 19 40 10/07/18 03:00 82 19 127/91 (103) 100 10/07/18 02:00 98.8 85 19 92/51 (65) 100 10/07/18 01:15 86 19 40 10/07/18 01:00 89 16 111/59 (76) 100 10/07/18 00:29 94/55 10/07/18 00:00 40 10/07/18 00:00 Mechanical Ventilator 10/07/18 00:00 89 16 100/55 (70) 100 10/07/18 00:00 80 10/06/18 23:13 93 16 40 10/06/18 23:00 89 16 95/52 (66) 100 10/06/18 22:00 98 21 101/58 (72) 100 10/06/18 21:23 88 18 40 10/06/18 21:00 99.0 93 20 94/47 (63) 100 10/06/18 20:00 87 10/06/18 20:00 40 10/06/18 20:00 88 22 98/54 (69) 100 10/06/18 20:00 Mechanical Ventilator 10/06/18 19:00 99 22 106/57 (73) 100 10/06/18 18:57 102 21 40 10/06/18 18:00 101 16 105/70 (82) 100 10/06/18 18:00 98 23 105/70 (82) 100 10/06/18 17:00 98.7 97 22 104/69 (81) 100 10/06/18 16:42 92 18 40 10/06/18 16:00 92 22 107/52 (70) 100 10/06/18 16:00 Mechanical Ventilator 10/06/18 16:00 88 10/06/18 16:00 40 10/06/18 15:00 86 20 89/50 (63) 99 10/06/18 14:44 88 20 40 10/06/18 14:00 88 19 85/50 (62) 100 10/06/18 13:00 93 22 99/49 (66) 100 10/06/18 12:33 86 20 40 10/06/18 12:00 Mechanical Ventilator 10/06/18 12:00 98.2 79 19 91/55 (67) 100 10/06/18 12:00 81 10/06/18 12:00 40 10/06/18 11:00 90 20 98/57 (71) 100 10/06/18 10:45 91 20 40 Status: sedated Condition: critical HEENT: atraumatic Neck: full ROM Heart: HR/BP stable Abdomen: soft, feeding tube Extremities: edema Critical Care - Subjective ROS Limited/Unobtainable: Yes Condition: critical EKG Rhythm: Sinus Rhythm FI02: 40 Vent Support Breath Rate: 16 Vent Support Mode: CPAP Vent Tidal Volume: 600 Sputum Amount: Small PEEP: 5.0 PIP: 34 Tube Feeding Amount: 40 I&O: Intake and Output 10/06/18 10/07/18 19:00 07:00 Intake Total 646 ml 635 ml Output Total 3890 ml 1600 ml Balance -3244 ml -965 ml Intake Free Water 100 ml IV Total 166 ml 55 ml Tube Feeding 480 ml 480 ml Output Urine Total 3890 ml 1600 ml CXR: slightly better, ET-Tube: 7.5 ET Position: 23 Labs: Laboratory Tests Test 10/07/18 03:30 10/07/18 04:00 White Blood Count 10.6 K/UL (4.8-10.8) Red Blood Count 2.66 M/UL (4.70-6.10) L Hemoglobin 8.3 G/DL (14.2-18.0) L Hematocrit 25.0 % (42.0-52.0) L Mean Corpuscular Volume 94 FL (80-99) Mean Corpuscular Hemoglobin 31.2 PG (27.0-31.0) H Mean Corpuscular Hemoglobin Concent 33.3 G/DL (32.0-36.0) Red Cell Distribution Width 15.7 % (11.6-14.8) H Platelet Count 318 K/UL (150-450) Mean Platelet Volume 9.6 FL (6.5-10.1) Neutrophils (%) (Auto) 75.8 % (45.0-75.0) H Lymphocytes (%) (Auto) 12.8 % (20.0-45.0) L Monocytes (%) (Auto) 6.7 % (1.0-10.0) Eosinophils (%) (Auto) 3.5 % (0.0-3.0) H Basophils (%) (Auto) 1.2 % (0.0-2.0) Sodium Level 142 MMOL/L (136-145) Potassium Level 3.8 MMOL/L (3.5-5.1) Chloride Level 106 MMOL/L (98-107) Carbon Dioxide Level 28 MMOL/L (21-32) Anion Gap 8 mmol/L (5-15) Blood Urea Nitrogen 16 mg/dL (7-18) Creatinine 1.1 MG/DL (0.55-1.30) Estimat Glomerular Filtration Rate > 60 mL/min (>60) Glucose Level 107 MG/DL (74-106) H Calcium Level 8.0 MG/DL (8.5-10.1) L Phosphorus Level 4.3 MG/DL (2.5-4.9) Magnesium Level 1.7 MG/DL (1.8-2.4) L Total Bilirubin 0.3 MG/DL (0.2-1.0) Aspartate Amino Transf (AST/SGOT) 16 U/L (15-37) Alanine Aminotransferase (ALT/SGPT) 7 U/L (12-78) L Alkaline Phosphatase 87 U/L (46-116) Total Protein 5.5 G/DL (6.4-8.2) L Albumin 1.5 G/DL (3.4-5.0) L Globulin 4.0 g/dL Albumin/Globulin Ratio 0.4 (1.0-2.7) L Arterial Blood pH 7.307 (7.350-7.450) Arterial Blood Partial Pressure CO2 52.8 mmHg (35.0-45.0) H Arterial Blood Partial Pressure O2 102.9 mmHg (75.0-100.0) H Arterial Blood HCO3 25.8 mmol/L (22.0-26.0) Arterial Blood Oxygen Saturation 96.4 % (95-100) Arterial Blood Base Excess -0.9 (-2-2) [place] Test Positive Garret Petty MD Oct 07, 2018 10:08
--- NOTE | 2018-10-07 10:10 | NUR ---
NURSE NOTES: Xray and abg results discussed with Dr. Petty. No extubation today per MD. Will resume tube feeding.
--- NOTE | 2018-10-07 10:20 | NUR ---
NURSE NOTES: Patient noted with BP 85/49, repeat BP 87/51. Dr. Petty at bedside. 1L NS Bolus per MD.
--- NOTE | 2018-10-07 10:56 | NUR ---
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 ARF . ETOH WITHDRAWAL w/ DT VS: BP 85/49, P 110, T 98.8, RR 24, SpO2 100 on VENT AC 16, TV 600, PEEP 5.0, FiO2 40 RBC 2.66, Hgb 8.3, Hct 25.0, Ca 8.0, Mag 1.7 CXR FINDINGS: Stable satisfactory positions of endotracheal and nasogastric tubes. Diffuse bilateral interstitial and airspace disease is unchanged. Left arm PICC again demonstrated. IS:NS x1L IV MAG. SULFATE 100ml IVPB CEFEPIME 55ml IVPB VANCOMYCIN 125mg LIBRIUM 25mg NG PROTONIX 40mg IVP SEROQUEL 50mg ICU STATUS
[2018-10-07] MEDS: Thiamine HCl 100 MG in D5W 110 ML IVPB SCH (11:59)
--- NOTE | 2018-10-07 12:30 | NUR ---
NURSE NOTES: Patient was turned and repositioned. suctioned, noted with moderate amount of thick white/yellow secretion. HOB kept elevated. BP 98/54. Patient resting in bed with eyes closed. No acute distress noted.
--- NOTE | 2018-10-07 13:16 | Infectious Diseases Prog Note ---
Assessment/Plan Assessment/Plan Assessment: Sepsis/Septic shock- now off pressors -10/03 Bcx NTD -09/26 Bcx Neg Probable UTI,sp Rx -u/a wbc 15-20, nit neg, leuk +3; ucx Morganella morganni (R ancef, amp; otherwise S) Fever- probable multifactorial 2ry to alcohol withdrawal, UTI; improving Leukocytosis, SP -Cdiff + Etoh intoxication- now ETOH withdrawal w/ DT Acute respiratory failure/ ARDS s/p intubation -CXR Extensive airspace disease again demonstrated without change. Thrombocytopenia- probably in the setting of sepsis and bone marrow suppression 2ry to EtOH Afib w/ RVR KARLA, improving EtOH abuse, nephrolithiasis Plan: -D/c Cefepime #8(abx d #05/17) - Cont PO Vancomycin #/-14 for Cdiff colitis -09/29 SP Ceftriaxone #4 -09/26 SP Zosyn x1 -f.u cx -Monitor CBC/CMP, temperatures -aspiration precautions -ETT/ICU care Will continue to follow along with you. Subjective Allergies: Coded Allergies: No Known Allergies (Unverified , 09/06/15) Subjective ; afebrile >36 hrs leukocytosis resolved fio2 40% off pressors Bcx NTD Objective Vital Signs Last 24 Hour Vital Signs Date Time Temp Pulse Resp B/P (MAP) Pulse Ox O2 Delivery O2 Flow Rate FiO2 10/07/18 13:00 81 17 103/55 (71) 100 10/07/18 12:40 89 16 40 10/07/18 12:00 Mechanical Ventilator 10/07/18 12:00 74 10/07/18 12:00 98.7 71 16 98/54 (69) 100 10/07/18 12:00 30 10/07/18 11:00 72 17 86/50 (62) 100 10/07/18 10:41 80 18 40 10/07/18 10:00 85 17 85/49 (61) 97 10/07/18 09:07 110 16 10/07/18 09:00 96 24 124/54 (77) 100 10/07/18 08:00 98.8 78 24 99/52 (68) 100 10/07/18 08:00 40 10/07/18 08:00 77 10/07/18 08:00 40 40 10/07/18 08:00 100 10/07/18 08:00 Mechanical Ventilator 10/07/18 07:27 77 16 40 10/07/18 07:00 80 18 96/53 (67) 100 10/07/18 06:00 80 18 95/56 (69) 100 10/07/18 05:07 80 18 40 10/07/18 05:00 80 18 94/56 (69) 100 10/07/18 04:00 80 18 88/56 (67) 100 10/07/18 04:00 74 10/07/18 04:00 Mechanical Ventilator 10/07/18 04:00 40 10/07/18 03:16 79 19 40 10/07/18 03:00 82 19 127/91 (103) 100 10/07/18 02:00 98.8 85 19 92/51 (65) 100 10/07/18 01:15 86 19 40 10/07/18 01:00 89 16 111/59 (76) 100 10/07/18 00:29 94/55 10/07/18 00:00 40 10/07/18 00:00 Mechanical Ventilator 10/07/18 00:00 89 16 100/55 (70) 100 10/07/18 00:00 80 10/06/18 23:13 93 16 40 10/06/18 23:00 89 16 95/52 (66) 100 10/06/18 22:00 98 21 101/58 (72) 100 10/06/18 21:23 88 18 40 10/06/18 21:00 99.0 93 20 94/47 (63) 100 10/06/18 20:00 87 10/06/18 20:00 40 10/06/18 20:00 88 22 98/54 (69) 100 10/06/18 20:00 Mechanical Ventilator 10/06/18 19:00 99 22 106/57 (73) 100 10/06/18 18:57 102 21 40 10/06/18 18:00 101 16 105/70 (82) 100 10/06/18 18:00 98 23 105/70 (82) 100 10/06/18 17:00 98.7 97 22 104/69 (81) 100 10/06/18 16:42 92 18 40 10/06/18 16:00 92 22 107/52 (70) 100 10/06/18 16:00 Mechanical Ventilator 10/06/18 16:00 88 10/06/18 16:00 40 10/06/18 15:00 86 20 89/50 (63) 99 10/06/18 14:44 88 20 40 10/06/18 14:00 88 19 85/50 (62) 100 Height (Feet): 5 Height (Inches): 6.00 Weight (Pounds): 157 Objective General Appearance: WD/WN, confused Lines, tubes and drains: peripheral HEENT: normocephalic, atraumatic Neck: non-tender, supple Respiratory/Chest: chest wall non-tender, lungs clear Cardiovascular/Chest: normal peripheral pulses Abdomen: normal bowel sounds Laboratory Tests Test 10/07/18 03:30 10/07/18 04:00 White Blood Count 10.6 K/UL (4.8-10.8) Red Blood Count 2.66 M/UL (4.70-6.10) L Hemoglobin 8.3 G/DL (14.2-18.0) L Hematocrit 25.0 % (42.0-52.0) L Mean Corpuscular Volume 94 FL (80-99) Mean Corpuscular Hemoglobin 31.2 PG (27.0-31.0) H Mean Corpuscular Hemoglobin Concent 33.3 G/DL (32.0-36.0) Red Cell Distribution Width 15.7 % (11.6-14.8) H Platelet Count 318 K/UL (150-450) Mean Platelet Volume 9.6 FL (6.5-10.1) Neutrophils (%) (Auto) 75.8 % (45.0-75.0) H Lymphocytes (%) (Auto) 12.8 % (20.0-45.0) L Monocytes (%) (Auto) 6.7 % (1.0-10.0) Eosinophils (%) (Auto) 3.5 % (0.0-3.0) H Basophils (%) (Auto) 1.2 % (0.0-2.0) Sodium Level 142 MMOL/L (136-145) Potassium Level 3.8 MMOL/L (3.5-5.1) Chloride Level 106 MMOL/L (98-107) Carbon Dioxide Level 28 MMOL/L (21-32) Anion Gap 8 mmol/L (5-15) Blood Urea Nitrogen 16 mg/dL (7-18) Creatinine 1.1 MG/DL (0.55-1.30) Estimat Glomerular Filtration Rate > 60 mL/min (>60) Glucose Level 107 MG/DL (74-106) H Calcium Level 8.0 MG/DL (8.5-10.1) L Phosphorus Level 4.3 MG/DL (2.5-4.9) Magnesium Level 1.7 MG/DL (1.8-2.4) L Total Bilirubin 0.3 MG/DL (0.2-1.0) Aspartate Amino Transf (AST/SGOT) 16 U/L (15-37) Alanine Aminotransferase (ALT/SGPT) 7 U/L (12-78) L Alkaline Phosphatase 87 U/L (46-116) Total Protein 5.5 G/DL (6.4-8.2) L Albumin 1.5 G/DL (3.4-5.0) L Globulin 4.0 g/dL Albumin/Globulin Ratio 0.4 (1.0-2.7) L Arterial Blood pH 7.307 (7.350-7.450) Arterial Blood Partial Pressure CO2 52.8 mmHg (35.0-45.0) H Arterial Blood Partial Pressure O2 102.9 mmHg (75.0-100.0) H Arterial Blood HCO3 25.8 mmol/L (22.0-26.0) Arterial Blood Oxygen Saturation 96.4 % (95-100) Arterial Blood Base Excess -0.9 (-2-2) [place] Test Positive Current Medications Medications (Trade) Dose Ordered Sig/Hoa Route PRN Reason Start Time Stop Time Status Last Admin Dose Admin Acetaminophen (Tylenol) 650 mg Q4H PRN ORAL fever (temp>100.5F) 09/28/18 03:45 10/26/18 19:44 10/05/18 15:56 Amiodarone HCl (Cordarone) 200 mg Q24H ORAL 10/02/18 20:00 11/01/18 19:59 10/06/18 20:44 Cefepime HCl 1 gm/ Dextrose 55 ml @ 110 mls/hr Q12HR@1000,2200 IVPB 10/06/18 10:00 10/09/18 09:59 10/07/18 09:02 Chlordiazepoxide (Librium) 25 mg Q6H PRN NG agitation 10/07/18 09:45 10/14/18 09:44 Chlorhexidine Gluconate (Zainab-Hex 2%) 1 applic DAILY@2000 TOPIC 10/03/18 20:00 11/02/18 19:59 10/06/18 20:44 Dextrose (Dextrose 50%) 25 ml Q30M PRN IV Hypoglycemia 09/28/18 01:30 10/26/18 17:59 Dextrose (Dextrose 50%) 50 ml Q30M PRN IV Hypoglycemia 09/28/18 01:30 10/26/18 17:59 Furosemide (Lasix) 20 mg Q6H PRN IV if hourly urine output <50 10/06/18 10:00 11/05/18 09:59 10/06/18 16:12 Metoprolol Tartrate 5 mg/ Dextrose 60 ml @ 130 mls/hr Q6HR PRN IVPB hr greater than 118 09/28/18 09:30 10/28/18 09:29 10/01/18 02:20 Midazolam HCl (Versed 2mg/2ml vial) 1 mg Q1H PRN IVP Agitation 09/28/18 13:00 10/28/18 12:59 10/04/18 22:52 Norepinephrine Bitartrate 4 mg/ Dextrose 250 ml @ 0 mls/hr Q24H IV 09/29/18 00:30 10/29/18 00:29 09/30/18 03:01 Ondansetron HCl (Zofran) 4 mg Q6H PRN IVP Nausea & Vomiting 09/28/18 01:45 10/27/18 19:44 Pantoprazole (Protonix) 40 mg EVERY 12 HOURS IVP 09/29/18 21:00 10/29/18 20:59 10/07/18 08:59 Quetiapine Fumarate (SEROquel) 50 mg Q12HR ORAL 09/28/18 21:00 10/27/18 08:59 10/07/18 08:59 Thiamine HCl 100 mg/Dextrose 111 ml @ 220 mls/hr Q24H IVPB 09/28/18 11:00 10/28/18 10:59 10/07/18 11:59 Vancomycin HCl (Firvanq) 125 mg FOUR TIMES A DAY ORAL 10/04/18 13:00 10/11/18 12:59 10/07/18 12:02 Jes Taylor M.D. Oct 07, 2018 13:16
--- NOTE | 2018-10-07 14:30 | NUR ---
NURSE NOTES: Patient awake, resting in bed. No acute distress noted. VSS. Patient tolerating tube feeding, 5ml residual noted. HOB elevated.
--- NOTE | 2018-10-07 16:05 | NUR ---
*-* ISNURANCE *-* UPDATED CLINICALS FAXED TO: FAXED TO THE [facility] FAX NUMBER [facility] [phone] Work Work Fax
--- NOTE | 2018-10-07 16:18 | NUR ---
NURSE NOTES: Dr. Leon here to see the patient. MD updated on pt's status. No new orders at this time. Patient awake, resting in bed. Steen cath care and oral care provided. Patient tolerated well.
--- NOTE | 2018-10-07 16:24 | Cardiology Progress Note ---
Assessment/Plan Assessment/Plan tachy ? MAT vs sinus svt hypotension septic shock ards alcohol with drawl syndrome ams etoh intoxication respiratory failure thrombocytopenia tele beter intubated on bryant vent cxr looks ok echo normal lv systolic function po amio iv abx torp neg d/w psych arnp reviewed bp dropped requiring bolus of ns earlier today wean as able to Subjective ROS Limited/Unobtainable: Yes Subjective intubated awake but not really respond Objective Last 24 Hour Vital Signs Date Time Temp Pulse Resp B/P (MAP) Pulse Ox O2 Delivery O2 Flow Rate FiO2 10/07/18 16:00 98.8 45 17 99/55 (70) 100 10/07/18 16:00 30 10/07/18 16:00 79 10/07/18 16:00 Mechanical Ventilator 10/07/18 15:00 74 17 98/48 (65) 100 10/07/18 14:36 84 16 40 10/07/18 14:00 76 16 94/52 (66) 96 10/07/18 13:00 81 17 103/55 (71) 100 10/07/18 12:40 89 16 40 10/07/18 12:00 Mechanical Ventilator 10/07/18 12:00 74 10/07/18 12:00 98.7 71 16 98/54 (69) 100 10/07/18 12:00 30 10/07/18 11:00 72 17 86/50 (62) 100 10/07/18 10:41 80 18 40 10/07/18 10:00 85 17 85/49 (61) 97 10/07/18 09:07 110 16 10/07/18 09:00 96 24 124/54 (77) 100 10/07/18 08:00 98.8 78 24 99/52 (68) 100 10/07/18 08:00 40 10/07/18 08:00 77 10/07/18 08:00 40 40 10/07/18 08:00 100 10/07/18 08:00 Mechanical Ventilator 10/07/18 07:27 77 16 40 10/07/18 07:00 80 18 96/53 (67) 100 10/07/18 06:00 80 18 95/56 (69) 100 10/07/18 05:07 80 18 40 10/07/18 05:00 80 18 94/56 (69) 100 10/07/18 04:00 80 18 88/56 (67) 100 10/07/18 04:00 74 10/07/18 04:00 Mechanical Ventilator 10/07/18 04:00 40 10/07/18 03:16 79 19 40 10/07/18 03:00 82 19 127/91 (103) 100 10/07/18 02:00 98.8 85 19 92/51 (65) 100 10/07/18 01:15 86 19 40 10/07/18 01:00 89 16 111/59 (76) 100 10/07/18 00:29 94/55 10/07/18 00:00 40 10/07/18 00:00 Mechanical Ventilator 10/07/18 00:00 89 16 100/55 (70) 100 10/07/18 00:00 80 10/06/18 23:13 93 16 40 10/06/18 23:00 89 16 95/52 (66) 100 10/06/18 22:00 98 21 101/58 (72) 100 10/06/18 21:23 88 18 40 10/06/18 21:00 99.0 93 20 94/47 (63) 100 10/06/18 20:00 87 10/06/18 20:00 40 10/06/18 20:00 88 22 98/54 (69) 100 10/06/18 20:00 Mechanical Ventilator 10/06/18 19:00 99 22 106/57 (73) 100 10/06/18 18:57 102 21 40 10/06/18 18:00 101 16 105/70 (82) 100 10/06/18 18:00 98 23 105/70 (82) 100 10/06/18 17:00 98.7 97 22 104/69 (81) 100 10/06/18 16:42 92 18 40 General Appearance: no apparent distress, alert Neck: supple Cardiovascular: normal rate Respiratory/Chest: lungs clear Abdomen: normal bowel sounds, non tender, soft Extremities: no swelling Intake and Output 10/06/18 10/07/18 19:00 07:00 Intake Total 646 ml 635 ml Output Total 3890 ml 1600 ml Balance -3244 ml -965 ml Intake Free Water 100 ml IV Total 166 ml 55 ml Tube Feeding 480 ml 480 ml Output Urine Total 3890 ml 1600 ml Laboratory Tests Test 10/07/18 03:30 10/07/18 04:00 White Blood Count 10.6 K/UL (4.8-10.8) Red Blood Count 2.66 M/UL (4.70-6.10) L Hemoglobin 8.3 G/DL (14.2-18.0) L Hematocrit 25.0 % (42.0-52.0) L Mean Corpuscular Volume 94 FL (80-99) Mean Corpuscular Hemoglobin 31.2 PG (27.0-31.0) H Mean Corpuscular Hemoglobin Concent 33.3 G/DL (32.0-36.0) Red Cell Distribution Width 15.7 % (11.6-14.8) H Platelet Count 318 K/UL (150-450) Mean Platelet Volume 9.6 FL (6.5-10.1) Neutrophils (%) (Auto) 75.8 % (45.0-75.0) H Lymphocytes (%) (Auto) 12.8 % (20.0-45.0) L Monocytes (%) (Auto) 6.7 % (1.0-10.0) Eosinophils (%) (Auto) 3.5 % (0.0-3.0) H Basophils (%) (Auto) 1.2 % (0.0-2.0) Sodium Level 142 MMOL/L (136-145) Potassium Level 3.8 MMOL/L (3.5-5.1) Chloride Level 106 MMOL/L (98-107) Carbon Dioxide Level 28 MMOL/L (21-32) Anion Gap 8 mmol/L (5-15) Blood Urea Nitrogen 16 mg/dL (7-18) Creatinine 1.1 MG/DL (0.55-1.30) Estimat Glomerular Filtration Rate > 60 mL/min (>60) Glucose Level 107 MG/DL (74-106) H Calcium Level 8.0 MG/DL (8.5-10.1) L Phosphorus Level 4.3 MG/DL (2.5-4.9) Magnesium Level 1.7 MG/DL (1.8-2.4) L Total Bilirubin 0.3 MG/DL (0.2-1.0) Aspartate Amino Transf (AST/SGOT) 16 U/L (15-37) Alanine Aminotransferase (ALT/SGPT) 7 U/L (12-78) L Alkaline Phosphatase 87 U/L (46-116) Total Protein 5.5 G/DL (6.4-8.2) L Albumin 1.5 G/DL (3.4-5.0) L Globulin 4.0 g/dL Albumin/Globulin Ratio 0.4 (1.0-2.7) L Arterial Blood pH 7.307 (7.350-7.450) Arterial Blood Partial Pressure CO2 52.8 mmHg (35.0-45.0) H Arterial Blood Partial Pressure O2 102.9 mmHg (75.0-100.0) H Arterial Blood HCO3 25.8 mmol/L (22.0-26.0) Arterial Blood Oxygen Saturation 96.4 % (95-100) Arterial Blood Base Excess -0.9 (-2-2) [place] Test Positive Mumtaz Leon MD Oct 07, 2018 16:24
--- NOTE | 2018-10-07 17:44 | Internal Med Progress Note ---
Subjective Date of Service: Oct 07, 2018 Physician Name Castellano,Sanford Attending Physician Benjamin Sterling MD Current Medications Medications (Trade) Dose Ordered Sig/Hoa Route PRN Reason Start Time Stop Time Status Last Admin Dose Admin Acetaminophen (Tylenol) 650 mg Q4H PRN ORAL fever (temp>100.5F) 09/28/18 03:45 10/26/18 19:44 10/05/18 15:56 Amiodarone HCl (Cordarone) 200 mg Q24H ORAL 10/02/18 20:00 11/01/18 19:59 10/06/18 20:44 Chlordiazepoxide (Librium) 25 mg Q6H PRN NG agitation 10/07/18 09:45 10/14/18 09:44 Chlorhexidine Gluconate (Zainab-Hex 2%) 1 applic DAILY@2000 TOPIC 10/03/18 20:00 11/02/18 19:59 10/06/18 20:44 Dextrose (Dextrose 50%) 25 ml Q30M PRN IV Hypoglycemia 09/28/18 01:30 10/26/18 17:59 Dextrose (Dextrose 50%) 50 ml Q30M PRN IV Hypoglycemia 09/28/18 01:30 10/26/18 17:59 Furosemide (Lasix) 20 mg Q6H PRN IV if hourly urine output <50 10/06/18 10:00 11/05/18 09:59 10/06/18 16:12 Metoprolol Tartrate 5 mg/ Dextrose 60 ml @ 130 mls/hr Q6HR PRN IVPB hr greater than 118 09/28/18 09:30 10/28/18 09:29 10/01/18 02:20 Midazolam HCl (Versed 2mg/2ml vial) 1 mg Q1H PRN IVP Agitation 09/28/18 13:00 10/28/18 12:59 10/04/18 22:52 Norepinephrine Bitartrate 4 mg/ Dextrose 250 ml @ 0 mls/hr Q24H IV 09/29/18 00:30 10/29/18 00:29 09/30/18 03:01 Ondansetron HCl (Zofran) 4 mg Q6H PRN IVP Nausea & Vomiting 09/28/18 01:45 10/27/18 19:44 Pantoprazole (Protonix) 40 mg EVERY 12 HOURS IVP 09/29/18 21:00 10/29/18 20:59 10/07/18 08:59 Quetiapine Fumarate (SEROquel) 50 mg Q12HR ORAL 09/28/18 21:00 10/27/18 08:59 10/07/18 08:59 Thiamine HCl 100 mg/Dextrose 111 ml @ 220 mls/hr Q24H IVPB 09/28/18 11:00 10/28/18 10:59 10/07/18 11:59 Vancomycin HCl (Firvanq) 125 mg FOUR TIMES A DAY ORAL 10/04/18 13:00 10/11/18 12:59 10/07/18 12:02 Allergies: Coded Allergies: No Known Allergies (Unverified , 09/06/15) ROS Limited/Unobtainable: Yes Subjective 68 YO M admitted with hematuria and hypotension. Now atrial fibrillation with rapid ventricular rate. Cover for Int Med-Dr Sterling. ICU. Intubated and sedated Objective Last Vital Signs Date Time Temp Pulse Resp B/P (MAP) Pulse Ox O2 Delivery O2 Flow Rate FiO2 10/07/18 17:03 79 18 40 10/07/18 17:00 102/56 (71) 100 10/07/18 16:00 98.8 10/07/18 16:00 Mechanical Ventilator 09/29/18 00:00 15.0 Laboratory Tests Test 10/07/18 03:30 10/07/18 04:00 White Blood Count 10.6 K/UL (4.8-10.8) Red Blood Count 2.66 M/UL (4.70-6.10) L Hemoglobin 8.3 G/DL (14.2-18.0) L Hematocrit 25.0 % (42.0-52.0) L Mean Corpuscular Volume 94 FL (80-99) Mean Corpuscular Hemoglobin 31.2 PG (27.0-31.0) H Mean Corpuscular Hemoglobin Concent 33.3 G/DL (32.0-36.0) Red Cell Distribution Width 15.7 % (11.6-14.8) H Platelet Count 318 K/UL (150-450) Mean Platelet Volume 9.6 FL (6.5-10.1) Neutrophils (%) (Auto) 75.8 % (45.0-75.0) H Lymphocytes (%) (Auto) 12.8 % (20.0-45.0) L Monocytes (%) (Auto) 6.7 % (1.0-10.0) Eosinophils (%) (Auto) 3.5 % (0.0-3.0) H Basophils (%) (Auto) 1.2 % (0.0-2.0) Sodium Level 142 MMOL/L (136-145) Potassium Level 3.8 MMOL/L (3.5-5.1) Chloride Level 106 MMOL/L (98-107) Carbon Dioxide Level 28 MMOL/L (21-32) Anion Gap 8 mmol/L (5-15) Blood Urea Nitrogen 16 mg/dL (7-18) Creatinine 1.1 MG/DL (0.55-1.30) Estimat Glomerular Filtration Rate > 60 mL/min (>60) Glucose Level 107 MG/DL (74-106) H Calcium Level 8.0 MG/DL (8.5-10.1) L Phosphorus Level 4.3 MG/DL (2.5-4.9) Magnesium Level 1.7 MG/DL (1.8-2.4) L Total Bilirubin 0.3 MG/DL (0.2-1.0) Aspartate Amino Transf (AST/SGOT) 16 U/L (15-37) Alanine Aminotransferase (ALT/SGPT) 7 U/L (12-78) L Alkaline Phosphatase 87 U/L (46-116) Total Protein 5.5 G/DL (6.4-8.2) L Albumin 1.5 G/DL (3.4-5.0) L Globulin 4.0 g/dL Albumin/Globulin Ratio 0.4 (1.0-2.7) L Arterial Blood pH 7.307 (7.350-7.450) Arterial Blood Partial Pressure CO2 52.8 mmHg (35.0-45.0) H Arterial Blood Partial Pressure O2 102.9 mmHg (75.0-100.0) H Arterial Blood HCO3 25.8 mmol/L (22.0-26.0) Arterial Blood Oxygen Saturation 96.4 % (95-100) Arterial Blood Base Excess -0.9 (-2-2) [place] Test Positive Intake and Output 10/06/18 10/07/18 19:00 07:00 Intake Total 646 ml 635 ml Output Total 3890 ml 1600 ml Balance -3244 ml -965 ml Intake Free Water 100 ml IV Total 166 ml 55 ml Tube Feeding 480 ml 480 ml Output Urine Total 3890 ml 1600 ml Objective General Appearance: WD/WN, no apparent distress, alert EENT: PERRL/EOMI, normal ENT inspection, TMs normal Neck: non-tender, normal alignment, supple, normal inspection Cardiovascular: Tachy; irreg/irreg; normal peripheral pulses, normal rate, no gallop/murmur, no JVD Respiratory/Chest: Mech vent; chest wall non-tender, lungs clear, coarse upper breath sounds, no respiratory distress, no accessory muscle use Abdomen: normal bowel sounds, non tender, soft, no organomegaly, no mass Extremities: normal range of motion, non-tender Neurologic: aerospace control and warning systems II-XII grossly normal, no motor/sensory deficts Assessment/Plan Assessment/Plan Assessment/Plan Assessment/Plan Problem List: (1) Severe sepsis ICD Codes: A41.9 - Sepsis, unspecified organism; R65.20 - Severe sepsis without septic shock SNOMED: 74430348 (2) Acute alcoholic intoxication ICD Codes: F10.129 - Alcohol abuse with intoxication, unspecified SNOMED: 26849990 (3) Nephrolithiasis ICD Codes: N20.0 - Calculus of kidney SNOMED: 63991948 (4) Hematuria ICD Codes: R31.9 - Hematuria, unspecified SNOMED: 70925709 5. Atrial fibrillation with rapid ventricular rate 6. Respiratory failure/ARDS 7. Urinary tract infection=M 8. Morganella morganii 9. C.Diff diarrhea Assessment/Plan fernandez cultures iv abx banana bag Librium, Seroquel and Klonipin iv abx, ID evaluation Metoprolol drip per Cardiology ICU status Cont mech vent per pulmonary Abx=Cefepime and oral Sanford Pressley MD Oct 07, 2018 17:44
--- NOTE | 2018-10-07 18:00 | NUR ---
NURSE NOTES: Patient awake, able to follow simple commands. On bilateral soft wrist restraints. No skin breakdown noted. Patient was turned and repositioned.
--- NOTE | 2018-10-07 19:02 | NUR ---
RESPIRATORY NOTE: Received pt on AC 16, 600VT, 30%, PEEP +5. Pt intubated w/ ETT 7.5 @ 23cm lipline, secured by anchorfast. Pt awake, slowly follows commands. B/S kandi. rhonchi, sxn moderate amounts of thick, clear-white to pale-yellow secretions. Both hands on soft restraints to prevent pt from self-extubation. Vent plugged into red outlet, ambubag at bedside. Pt in no apparent distress at this time. Will continue to monitor pt.
--- NOTE | 2018-10-07 19:20 | NUR ---
HAND-OFF: Report given to YING Overton.
[2018-10-07] MEDS: Dyna-Hex 2% Top Sol 2oz TOPIC SCH (19:39)
[2018-10-07] MEDS: Amiodarone 200mg tab ORAL SCH (19:39)
--- NOTE | 2018-10-07 19:45 | NUR ---
NURSE NOTES: PATIENT ALERT, ABLE TO EYE CONTACT, FOLLOW COMMANDS BUT TRIED TO TOUCH LINE STATUS, ON ETT TO VENT AC16/TV600/FIO2 30%/PEEP 5, SATURATION 100% NOTED, RIGHT NARES NGT INTACT AND PATENT, ONGOING JEVITY 1.2 AT 40ML/HR, NO RESIDUE NOTED, ABDOMEN SOFT, HYPOACTIVE BOWEL SOUND TO 4 QUADRANTS, NO BOWEL MOVEMENT STATUS, F/C INTACT AND PATENT, YELLOW COLOR URINE DRAINING WELL GRAVITY, PICC LINE TO LEFT UPPER ARM, INTACT AND PATENT, 2 POINT SOFT RESTRAINTS FOR SAFETY, KEPT HOB 30 DEGREE, MADE LOWER BED POSITION AND PROVIDED CALL LIGHT WITHIN REACH, WILL CONTINUE TO MONITOR.
[2018-10-07] MEDS: Midazolam 2mg/2ml Inj IVP PRN (22:22)
--- NOTE | 2018-10-07 22:22 | NUR ---
NURSE NOTES: PATIENT AGITATED, TRIED TO REMOVE ENDOTUBE THAT GIVEN VERSED 1MG BY IVP SLOWLY PRN ORDERED, WILL CONTINUE TO MONITOR.
[2018-10-08] VITALS (26 sets, daily range): BP systolic 91–131; BP diastolic 51–78
--- NOTE | 2018-10-08 00:20 | NUR ---
NURSE NOTES: PATIENT CALM, DENIED PAIN OR DISTRESS AT THIS TIME, WILL CONTINUE PLAN OF CARE.
--- NOTE | 2018-10-08 02:30 | NUR ---
NURSE NOTES: PATIENT ASLEEP STATUS.
--- NOTE | 2018-10-08 04:30 | NUR ---
NURSE NOTES: MORNING CARE WAS DONE, NO BOWEL MOVEMENT STATUS.
[2018-10-08 05:44] LABS: BASOPHILS % (AUTO) 1.4 % (0.0-2.0); EOSINOPHILS % (AUTO) 4.3 % (0.0-3.0); HEMATOCRIT 25.4 % (42.0-52.0); HEMOGLOBIN 8.4 G/DL (14.2-18.0); LYMPHOCYTES % (AUTO) 8.9 % (20.0-45.0); MEAN CORPUSCULAR VOLUME 93 FL (80-99); MONOCYTES % (AUTO) 12.2 % (1.0-10.0); NEUTROPHILS % (AUTO) 73.2 % (45.0-75.0); PLATELET COUNT 355 K/UL (150-450); RED BLOOD COUNT 2.72 M/UL (4.70-6.10); RED CELL DISTRIBUTION WIDTH 15.9 % (11.6-14.8); WHITE BLOOD COUNT 9.2 K/UL (4.8-10.8)
[2018-10-08 06:17] LABS: ALANINE AMINOTRANSFERASE 13 U/L (12-78); ALBUMIN 1.7 G/DL (3.4-5.0); ALBUMIN/GLOBULIN RATIO 0.4 (1.0-2.7); ALKALINE PHOSPHATASE 88 U/L (46-116); ANION GAP 7 mmol/L (5-15); ASPARTATE AMINO TRANSFERASE 17 U/L (15-37); BILIRUBIN,TOTAL 0.3 MG/DL (0.2-1.0); BLOOD UREA NITROGEN 16 mg/dL (7-18); CALCIUM 8.2 MG/DL (8.5-10.1); CARBON DIOXIDE 29 MMOL/L (21-32); CHLORIDE 106 MMOL/L (98-107); SODIUM 142 MMOL/L (136-145)
--- NOTE | 2018-10-08 06:30 | NUR ---
NURSE NOTES: NO ACUTE DISTRESS NOTED AT THIS SHIFT.
--- NOTE | 2018-10-08 07:01 | NUR ---
HAND-OFF: Report given to YING CHARLES.
--- NOTE | 2018-10-08 07:02 | NUR ---
NURSE NOTES: Report received from Tian Garsia RN. Pt is sleeping in bed. Easily able to wake up. Mainly Ukrainian speaking. Pt gets impulsive at times and is trying to pull out ETT. Bilateral soft wrist restraints on. Sinus rhythm on manager cardiac cath with HR 70's. ETT in place. 7.5/23cm at lip line. AC 16, TV 600, FiO2 30%, P 5. O2 sat 100%. Right nare NGT in place receiving Jevity at 40cc/hr. No residual noted. Steen in place draining yellow urine to gravity. Left UA PICC line patent and asymptomatic. Bed in lowest position. Side rails up x3. Call light within reach. Will resume plan of care.
--- NOTE | 2018-10-08 07:36 | NUR ---
RESPIRATORY NOTE: pt intubated with ETT 7.5 placed 23cm at the lip, secured via anchor fast with no redness or skin tears seen around facial area. vent settings are current and as followed with alarms set and audible. ambu bag at bedside and vent is plugged into the red outlet. will attempt to wean later this morning. will cont to monitor.
[2018-10-08] MEDS: Pantoprazole Inj IVP SCH ×2 (08:06→21:03)
[2018-10-08] MEDS: Vancomycin oral 125mg/2.5ml ORAL SCH ×4 (08:06→21:03)
--- NOTE | 2018-10-08 08:14 | NUR ---
NURSE NOTES: Weaning started by RT with CPAP, PS 12. Pt is alert and slightly restless. Scheduled Seroquel held for weaning. CXR is being done at bedside. Will continue to monitor.
--- NOTE | 2018-10-08 08:15 | NUR ---
RESPIRATORY NOTE: placed pt on CPAP PS 12. no signs of resp distress at this time. RN notified. will cont to monitor.
--- NOTE | 2018-10-08 09:48 | Diagnostic Imaging Report ---
Indication: Dyspnea Technique: One view of the chest Comparison: 10/07/2018 Findings: Stable satisfactory positions of endotracheal tube, nasogastric tube, left arm PICC. Bilateral diffuse interstitial and airspace disease persists, unchanged Impression: Unchanged, over one day, findings as above.
--- NOTE | 2018-10-08 10:16 | NUR ---
NURSE NOTES: Dr Petty here to see the patient. Pt is on CPAP, PS 10, FiO2 30%, O2 sat 100%. VSS. No respiratory distress noted. Order for extubation received and noted. Notified RT.
--- NOTE | 2018-10-08 10:19 | Pulmonolgy Critical Care Note ---
Critical Care - Asmt/Plan Problems: (1) Acute respiratory failure with hypoxemia (2) ARDS (adult respiratory distress syndrome) (3) ATN (acute tubular necrosis) (4) Delirium tremens (5) Rapid atrial fibrillation Respiratory: monitor respiratory rate, adjust FIO2, CXR, weaning trial Cardiac: continue to monitor HR/BP Renal: F/U I&O, keep IV fluid, check electrolytes Infectious Disease: check cultures Gastrointestinal: continue feedings/current rate Endocrine: monitor blood sugar Hematologic: monitor H/H, transfuse if hgb<8.5 Neurologic: PRN Ativan Prophylaxis: Protonix Disposition: keep in ICU Notes Reviewed: hop picker, renal 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, 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 - Objective Last 24 Hour Vital Signs Date Time Temp Pulse Resp B/P (MAP) Pulse Ox O2 Delivery O2 Flow Rate FiO2 10/08/18 10:00 82 23 107/68 (81) 100 10/08/18 09:43 100 10/08/18 09:00 83 20 114/61 (78) 100 10/08/18 08:55 30 10/08/18 08:51 85 21 30 30 10/08/18 08:14 30 10/08/18 08:13 30 10/08/18 08:00 30 10/08/18 08:00 Mechanical Ventilator 10/08/18 08:00 88 21 113/62 (79) 100 10/08/18 07:54 88 10/08/18 07:32 76 16 30 10/08/18 07:00 99.0 75 16 91/54 (66) 100 10/08/18 06:00 71 16 95/55 (68) 100 10/08/18 05:14 75 17 40 10/08/18 05:00 75 20 91/60 (70) 100 10/08/18 04:00 30 10/08/18 04:00 Mechanical Ventilator 10/08/18 04:00 99.3 76 17 98/55 (69) 100 10/08/18 03:59 77 10/08/18 03:08 74 16 40 10/08/18 03:00 72 16 104/68 (80) 100 10/08/18 02:00 79 20 106/62 (77) 100 10/08/18 01:19 77 22 40 10/08/18 01:00 74 16 97/51 (66) 100 10/08/18 00:30 98/61 10/08/18 00:00 30 10/08/18 00:00 98.1 74 16 98/61 (73) 100 10/08/18 00:00 Mechanical Ventilator 10/07/18 23:37 73 10/07/18 23:00 73 16 98/57 (71) 100 10/07/18 22:50 78 19 40 10/07/18 22:00 78 18 101/59 (73) 100 10/07/18 21:00 85 21 40 10/07/18 21:00 82 19 134/73 (93) 100 10/07/18 20:00 99.4 86 20 102/57 (72) 100 10/07/18 20:00 30 10/07/18 20:00 Mechanical Ventilator 10/07/18 19:24 80 10/07/18 19:00 84 18 103/68 (80) 100 10/07/18 19:00 80 17 40 10/07/18 18:00 79 19 98/59 (72) 100 10/07/18 17:03 79 18 40 10/07/18 17:00 77 17 102/56 (71) 100 10/07/18 16:00 98.8 45 17 99/55 (70) 100 10/07/18 16:00 30 10/07/18 16:00 79 10/07/18 16:00 Mechanical Ventilator 10/07/18 15:00 74 17 98/48 (65) 100 10/07/18 14:36 84 16 40 10/07/18 14:00 76 16 94/52 (66) 96 10/07/18 13:00 81 17 103/55 (71) 100 10/07/18 12:40 89 16 40 10/07/18 12:00 Mechanical Ventilator 10/07/18 12:00 74 10/07/18 12:00 98.7 71 16 98/54 (69) 100 10/07/18 12:00 30 10/07/18 11:00 72 17 86/50 (62) 100 10/07/18 10:41 80 18 40 Status: awake Condition: critical HEENT: atraumatic Neck: full ROM Heart: HR/BP stable, regular Abdomen: soft, non-tender Extremities: no C/C/E Critical Care - Subjective ROS Limited/Unobtainable: No Condition: critical EKG Rhythm: Sinus Rhythm FI02: 30 Vent Support Breath Rate: 16 Vent Support Mode: CPAP Vent Tidal Volume: 600 Sputum Amount: Small PEEP: 5.0 PIP: 17 Tube Feeding Amount: 40 I&O: Intake and Output 10/07/18 10/08/18 19:00 07:00 Intake Total 1096 ml 570 ml Output Total 1270 ml 1040 ml Balance -174 ml -470 ml Intake Free Water 230 ml IV Total 466 ml Tube Feeding 400 ml 480 ml Other 90 ml Output Urine Total 1270 ml 1040 ml CXR: less edema ET-Tube: 7.5 ET Position: 23 Labs: Laboratory Tests Test 10/08/18 04:15 White Blood Count 9.2 K/UL (4.8-10.8) Red Blood Count 2.72 M/UL (4.70-6.10) L Hemoglobin 8.4 G/DL (14.2-18.0) L Hematocrit 25.4 % (42.0-52.0) L Mean Corpuscular Volume 93 FL (80-99) Mean Corpuscular Hemoglobin 30.9 PG (27.0-31.0) Mean Corpuscular Hemoglobin Concent 33.1 G/DL (32.0-36.0) Red Cell Distribution Width 15.9 % (11.6-14.8) H Platelet Count 355 K/UL (150-450) Mean Platelet Volume 9.1 FL (6.5-10.1) Neutrophils (%) (Auto) 73.2 % (45.0-75.0) Lymphocytes (%) (Auto) 8.9 % (20.0-45.0) L Monocytes (%) (Auto) 12.2 % (1.0-10.0) H Eosinophils (%) (Auto) 4.3 % (0.0-3.0) H Basophils (%) (Auto) 1.4 % (0.0-2.0) Sodium Level 142 MMOL/L (136-145) Potassium Level 4.0 MMOL/L (3.5-5.1) Chloride Level 106 MMOL/L (98-107) Carbon Dioxide Level 29 MMOL/L (21-32) Anion Gap 7 mmol/L (5-15) Blood Urea Nitrogen 16 mg/dL (7-18) Creatinine 1.0 MG/DL (0.55-1.30) Estimat Glomerular Filtration Rate > 60 mL/min (>60) Glucose Level 107 MG/DL (74-106) H Calcium Level 8.2 MG/DL (8.5-10.1) L Total Bilirubin 0.3 MG/DL (0.2-1.0) Aspartate Amino Transf (AST/SGOT) 17 U/L (15-37) Alanine Aminotransferase (ALT/SGPT) 13 U/L (12-78) Alkaline Phosphatase 88 U/L (46-116) Pro-B-Type Natriuretic Peptide 607 pg/mL (0-125) H Total Protein 5.8 G/DL (6.4-8.2) L Albumin 1.7 G/DL (3.4-5.0) L Globulin 4.1 g/dL Albumin/Globulin Ratio 0.4 (1.0-2.7) L Garret Petty MD Oct 08, 2018 10:19
--- NOTE | 2018-10-08 10:24 | NUR ---
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 ARF . ETOH WITHDRAWAL w/ DT VS: BP 107/68, P 82, T , RR 23, SpO2 100 on CPAP PEEP 5.0 RBC 2.72, Hgb 8.4, Hct 25.4, Glucose 107, Ca 8.2 CXR Findings: Stable satisfactory positions of endotracheal tube, nasogastric tube, left arm PICC. Bilateral diffuse interstitial and airspace disease persists, unchanged IS:PROTONIX 40mg IVP LIBRIUM 25mg NG SEROQUEL 50mg MIDAZOLAM 1mg IVP THIAMINE/D5 111ml IVPB ICU STATUS
--- NOTE | 2018-10-08 10:29 | NUR ---
RADIOLOGY DEPT., CHEST X-RAY DONE.-P.DYE
--- NOTE | 2018-10-08 10:35 | NUR ---
NURSE NOTES: Pt was extubated and placed on Ventri mask 40% by RT. O2 sat 100%. No respiratory distress noted. Pt is on high javed's position. Will continue to monitor pt. Addendum: 10/08/18 at 1109 by DEYANIRA KHAN RN RN NURSE NOTES: Pt was extubated and placed on Ventri mask 40% by RT. O2 sat 100%. No respiratory distress noted. Pt is on high javed's position. Bilateral soft restraints on since pt is still trying to remove NGT and to get out of bed. Will continue to monitor pt. Addendum: 10/08/18 at 1110 by DEYANIRA KHAN RN RN NURSE NOTES: Pt was extubated and placed on Ventri mask 40% by RT. O2 sat 100%. No respiratory distress noted. Pt is on high javed's position. Will keep bilateral soft restraints on since pt is still trying to remove NGT and to get out of bed. Will continue to monitor pt.
--- NOTE | 2018-10-08 10:36 | NUR ---
RESPIRATORY NOTE: pt successfully extubated at 1035 with RN, Mariajose Yost at bedside. No stridor heard post extubation. pt's vitals stable and WNL and no resp distress. Pt is placed on CA-40%.
[2018-10-08] MEDS: Thiamine HCl 100 MG in D5W 110 ML IVPB SCH (10:45)
--- NOTE | 2018-10-08 10:59 | Infectious Diseases Prog Note ---
Assessment/Plan Assessment/Plan Sepsis/Septic shock- now off pressors -10/03 Bcx NTD -09/26 Bcx Neg Probable UTI,sp Rx -u/a wbc 15-20, nit neg, leuk +3; ucx Morganella morganni (R ancef, amp; otherwise S) Fever- probable multifactorial 2ry to alcohol withdrawal, UTI; improving Leukocytosis, SP -Cdiff + Etoh intoxication- now ETOH withdrawal w/ DT Acute respiratory failure/ ARDS s/p intubation -CXR Extensive airspace disease again demonstrated without change. Thrombocytopenia- probably in the setting of sepsis and bone marrow suppression 2ry to EtOH Afib w/ RVR KARLA, improving EtOH abuse, nephrolithiasis Plan: - Cont PO Vancomycin #/ for Cdiff colitis -10/07/18 SP Cefepime #8 -09/29 SP Ceftriaxone # -09/26 SP Zosyn x1 -f.u cx -Monitor CBC/CMP, temperatures -aspiration precautions -ETT/ICU care Will continue to follow along with you. Subjective Allergies: Coded Allergies: No Known Allergies (Unverified , 09/06/15) Subjective Afebrile 24hr Leukocytosis resolved Objective Vital Signs Last 24 Hour Vital Signs Date Time Temp Pulse Resp B/P (MAP) Pulse Ox O2 Delivery O2 Flow Rate FiO2 10/08/18 10:35 Venturi Mask 10.0 10/08/18 10:00 82 23 107/68 (81) 100 10/08/18 09:43 100 10/08/18 09:00 83 20 114/61 (78) 100 10/08/18 08:55 30 10/08/18 08:51 85 21 30 30 10/08/18 08:14 30 10/08/18 08:13 30 10/08/18 08:00 30 10/08/18 08:00 Mechanical Ventilator 10/08/18 08:00 88 21 113/62 (79) 100 10/08/18 07:54 88 10/08/18 07:32 76 16 30 10/08/18 07:00 99.0 75 16 91/54 (66) 100 10/08/18 06:00 71 16 95/55 (68) 100 10/08/18 05:14 75 17 40 10/08/18 05:00 75 20 91/60 (70) 100 10/08/18 04:00 30 10/08/18 04:00 Mechanical Ventilator 10/08/18 04:00 99.3 76 17 98/55 (69) 100 10/08/18 03:59 77 10/08/18 03:08 74 16 40 10/08/18 03:00 72 16 104/68 (80) 100 10/08/18 02:00 79 20 106/62 (77) 100 10/08/18 01:19 77 22 40 10/08/18 01:00 74 16 97/51 (66) 100 10/08/18 00:30 98/61 10/08/18 00:00 30 10/08/18 00:00 98.1 74 16 98/61 (73) 100 10/08/18 00:00 Mechanical Ventilator 10/07/18 23:37 73 10/07/18 23:00 73 16 98/57 (71) 100 10/07/18 22:50 78 19 40 10/07/18 22:00 78 18 101/59 (73) 100 10/07/18 21:00 85 21 40 10/07/18 21:00 82 19 134/73 (93) 100 10/07/18 20:00 99.4 86 20 102/57 (72) 100 10/07/18 20:00 30 10/07/18 20:00 Mechanical Ventilator 10/07/18 19:24 80 10/07/18 19:00 84 18 103/68 (80) 100 10/07/18 19:00 80 17 40 10/07/18 18:00 79 19 98/59 (72) 100 10/07/18 17:03 79 18 40 10/07/18 17:00 77 17 102/56 (71) 100 10/07/18 16:00 98.8 45 17 99/55 (70) 100 10/07/18 16:00 30 10/07/18 16:00 79 10/07/18 16:00 Mechanical Ventilator 10/07/18 15:00 74 17 98/48 (65) 100 10/07/18 14:36 84 16 40 10/07/18 14:00 76 16 94/52 (66) 96 10/07/18 13:00 81 17 103/55 (71) 100 10/07/18 12:40 89 16 40 10/07/18 12:00 Mechanical Ventilator 10/07/18 12:00 74 4/2/19 12:00 98.7 71 16 98/54 (69) 100 10/07/18 12:00 30 10/07/18 11:00 72 17 86/50 (62) 100 Height (Feet): 5 Height (Inches): 6.00 Weight (Pounds): 153 Objective General: NAD, On Ventimask HEENT: normocephalic, atraumatic, EOMI Respiratory/Chest: Coarse B/L Cardiovascular/Chest: RRR, S1, S2 Abdomen: Soft, Normal bowel sounds Laboratory Tests Test 10/08/18 04:15 White Blood Count 9.2 K/UL (4.8-10.8) Red Blood Count 2.72 M/UL (4.70-6.10) L Hemoglobin 8.4 G/DL (14.2-18.0) L Hematocrit 25.4 % (42.0-52.0) L Mean Corpuscular Volume 93 FL (80-99) Mean Corpuscular Hemoglobin 30.9 PG (27.0-31.0) Mean Corpuscular Hemoglobin Concent 33.1 G/DL (32.0-36.0) Red Cell Distribution Width 15.9 % (11.6-14.8) H Platelet Count 355 K/UL (150-450) Mean Platelet Volume 9.1 FL (6.5-10.1) Neutrophils (%) (Auto) 73.2 % (45.0-75.0) Lymphocytes (%) (Auto) 8.9 % (20.0-45.0) L Monocytes (%) (Auto) 12.2 % (1.0-10.0) H Eosinophils (%) (Auto) 4.3 % (0.0-3.0) H Basophils (%) (Auto) 1.4 % (0.0-2.0) Sodium Level 142 MMOL/L (136-145) Potassium Level 4.0 MMOL/L (3.5-5.1) Chloride Level 106 MMOL/L (98-107) Carbon Dioxide Level 29 MMOL/L (21-32) Anion Gap 7 mmol/L (5-15) Blood Urea Nitrogen 16 mg/dL (7-18) Creatinine 1.0 MG/DL (0.55-1.30) Estimat Glomerular Filtration Rate > 60 mL/min (>60) Glucose Level 107 MG/DL (74-106) H Calcium Level 8.2 MG/DL (8.5-10.1) L Total Bilirubin 0.3 MG/DL (0.2-1.0) Aspartate Amino Transf (AST/SGOT) 17 U/L (15-37) Alanine Aminotransferase (ALT/SGPT) 13 U/L (12-78) Alkaline Phosphatase 88 U/L (46-116) Pro-B-Type Natriuretic Peptide 607 pg/mL (0-125) H Total Protein 5.8 G/DL (6.4-8.2) L Albumin 1.7 G/DL (3.4-5.0) L Globulin 4.1 g/dL Albumin/Globulin Ratio 0.4 (1.0-2.7) L Current Medications Medications (Trade) Dose Ordered Sig/Hoa Route PRN Reason Start Time Stop Time Status Last Admin Dose Admin Acetaminophen (Tylenol) 650 mg Q4H PRN ORAL fever (temp>100.5F) 09/28/18 03:45 10/26/18 19:44 10/05/18 15:56 Amiodarone HCl (Cordarone) 200 mg Q24H ORAL 10/02/18 20:00 11/01/18 19:59 10/07/18 19:39 Chlordiazepoxide (Librium) 25 mg Q6H PRN NG agitation 10/07/18 09:45 10/14/18 09:44 Chlorhexidine Gluconate (Zainab-Hex 2%) 1 applic DAILY@2000 TOPIC 10/03/18 20:00 11/02/18 19:59 10/07/18 19:39 Dextrose (Dextrose 50%) 25 ml Q30M PRN IV Hypoglycemia 09/28/18 01:30 10/26/18 17:59 Dextrose (Dextrose 50%) 50 ml Q30M PRN IV Hypoglycemia 09/28/18 01:30 10/26/18 17:59 Furosemide (Lasix) 20 mg Q6H PRN IV if hourly urine output <50 10/06/18 10:00 11/05/18 09:59 10/06/18 16:12 Metoprolol Tartrate 5 mg/ Dextrose 60 ml @ 130 mls/hr Q6HR PRN IVPB hr greater than 118 09/28/18 09:30 10/28/18 09:29 10/01/18 02:20 Midazolam HCl (Versed 2mg/2ml vial) 1 mg Q1H PRN IVP Agitation 09/28/18 13:00 10/28/18 12:59 10/07/18 22:22 Ondansetron HCl (Zofran) 4 mg Q6H PRN IVP Nausea & Vomiting 09/28/18 01:45 10/27/18 19:44 Pantoprazole (Protonix) 40 mg EVERY 12 HOURS IVP 10/08/18 21:00 11/07/18 20:59 Quetiapine Fumarate (SEROquel) 50 mg Q12HR ORAL 09/28/18 21:00 10/27/18 08:59 10/07/18 20:40 Thiamine HCl 100 mg/Dextrose 111 ml @ 220 mls/hr Q24H IVPB 09/28/18 11:00 10/28/18 10:59 10/08/18 10:45 Vancomycin HCl (Firvanq) 125 mg FOUR TIMES A DAY ORAL 10/04/18 13:00 10/11/18 12:59 10/08/18 08:06 Barney Neil MD Oct 08, 2018 10:59
--- NOTE | 2018-10-08 13:06 | NUR ---
NURSE NOTES: Ventri mask titrated down to 30% by RT. O2 sat 95%. No respiratory distress noted. Turned and repositioned pt. Oral acre done. VSS. Will continue to monitor.
--- NOTE | 2018-10-08 14:28 | NUR ---
*-* ISNURANCE *-* UPDATED CLINICALS FAXED TO: FAXED TO THE [facility] FAX NUMBER [facility] [phone] Work Work Fax
--- NOTE | 2018-10-08 14:57 | Nephrology Progress Note ---
Assessment/Plan Problem List: (1) ATN (acute tubular necrosis) (2) ARDS (adult respiratory distress syndrome) (3) Acute respiratory failure with hypoxemia Assessment (1) Acute respiratory failure with hypoxemia- On Vent (2) ARDS (adult respiratory distress syndrome) (3) ATN (acute tubular necrosis)- resolved (4) Delirium tremens (5) Rapid atrial fibrillation Plan stable from renal stand feeding by tube Vent support- weaning?? Librium PRN Keep BP under control Avoid nephrotoxics monitor renal parameters Albumin boluses as needed k and phos and Mag as needed Subjective ROS Limited/Unobtainable: Yes Objective Objective Last 24 Hour Vital Signs Date Time Temp Pulse Resp B/P (MAP) Pulse Ox O2 Delivery O2 Flow Rate FiO2 10/08/18 14:00 101 25 116/63 (80) 96 10/08/18 14:00 90 25 110/59 (76) 100 10/08/18 13:00 90 25 110/59 (76) 100 10/08/18 12:00 98.8 81 23 113/66 (82) 99 10/08/18 12:00 Venturi Mask 10/08/18 11:46 81 10/08/18 11:00 82 22 108/65 (79) 100 10/08/18 10:57 100 Venturi Mask 12.0 40 10/08/18 10:57 Venturi Mask 12.0 40 10/08/18 10:35 Venturi Mask 10/08/18 10:00 82 23 107/68 (81) 100 10/08/18 09:43 100 10/08/18 09:00 83 20 114/61 (78) 100 10/08/18 08:55 30 10/08/18 08:51 85 21 30 30 10/08/18 08:14 30 10/08/18 08:13 30 10/08/18 08:00 30 10/08/18 08:00 Mechanical Ventilator 10/08/18 08:00 88 21 113/62 (79) 100 10/08/18 07:54 88 10/08/18 07:32 76 16 30 10/08/18 07:00 99.0 75 16 91/54 (66) 100 10/08/18 06:00 71 16 95/55 (68) 100 10/08/18 05:14 75 17 40 10/08/18 05:00 75 20 91/60 (70) 100 10/08/18 04:00 30 10/08/18 04:00 Mechanical Ventilator 10/08/18 04:00 99.3 76 17 98/55 (69) 100 10/08/18 03:59 77 10/08/18 03:08 74 16 40 10/08/18 03:00 72 16 104/68 (80) 100 10/08/18 02:00 79 20 106/62 (77) 100 10/08/18 01:19 77 22 40 10/08/18 01:00 74 16 97/51 (66) 100 10/08/18 00:30 98/61 10/08/18 00:00 30 10/08/18 00:00 98.1 74 16 98/61 (73) 100 10/08/18 00:00 Mechanical Ventilator 10/07/18 23:37 73 10/07/18 23:00 73 16 98/57 (71) 100 10/07/18 22:50 78 19 40 10/07/18 22:00 78 18 101/59 (73) 100 10/07/18 21:00 85 21 40 10/07/18 21:00 82 19 134/73 (93) 100 10/07/18 20:00 99.4 86 20 102/57 (72) 100 10/07/18 20:00 30 10/07/18 20:00 Mechanical Ventilator 10/07/18 19:24 80 10/07/18 19:00 84 18 103/68 (80) 100 10/07/18 19:00 80 17 40 10/07/18 18:00 79 19 98/59 (72) 100 10/07/18 17:03 79 18 40 10/07/18 17:00 77 17 102/56 (71) 100 10/07/18 16:00 98.8 45 17 99/55 (70) 100 10/07/18 16:00 30 10/07/18 16:00 79 10/07/18 16:00 Mechanical Ventilator 10/07/18 15:00 74 17 98/48 (65) 100 Intake and Output 10/07/18 10/08/18 19:00 07:00 Intake Total 1096 ml 570 ml Output Total 1270 ml 1040 ml Balance -174 ml -470 ml Intake Free Water 230 ml IV Total 466 ml Tube Feeding 400 ml 480 ml Other 90 ml Output Urine Total 1270 ml 1040 ml Laboratory Tests 10/08/18 04:15: White Blood Count 9.2, Red Blood Count 2.72L, Hemoglobin 8.4L, Hematocrit 25.4L , Mean Corpuscular Volume 93, Mean Corpuscular Hemoglobin 30.9, Mean Corpuscular Hemoglobin Concent 33.1, Red Cell Distribution Width 15.9H, Platelet Count 355, Mean Platelet Volume 9.1, Neutrophils (%) (Auto) 73.2, Lymphocytes (%) (Auto) 8.9L, Monocytes (%) (Auto) 12.2H, Eosinophils (%) (Auto) 4.3H, Basophils (%) (Auto) 1.4, Sodium Level 142, Potassium Level 4.0, Chloride Level 106, Carbon Dioxide Level 29, Anion Gap 7, Blood Urea Nitrogen 16, Creatinine 1.0, Estimat Glomerular Filtration Rate > 60, Glucose Level 107H, Calcium Level 8.2L, Total Bilirubin 0.3, Aspartate Amino Transf (AST/SGOT) 17, Alanine Aminotransferase (ALT/SGPT) 13, Alkaline Phosphatase 88, Pro-B-Type Natriuretic Peptide 607H, Total Protein 5.8L, Albumin 1.7L, Globulin 4.1, Albumin/Globulin Ratio 0.4L Height (Feet): 5 Height (Inches): 6.00 Weight (Pounds): 153 General Appearance: no apparent distress Cardiovascular: tachycardia Respiratory/Chest: decreased breath sounds Abdomen: distended Objective no other change Kaden Cordova MD Oct 08, 2018 14:57
--- NOTE | 2018-10-08 15:30 | NUR ---
NURSE NOTES: Turned and repositioned pt. Oral care done. Pt is confused and trying to pull out NGT. On bilateral soft restraints. Will continue to monitor.
--- NOTE | 2018-10-08 17:00 | NUR ---
NURSE NOTES: Pt is desaturating to 80's %. Notified RT and Ventri mask increased to 50%. O2 sat 92%. Will continue to monitor.
--- NOTE | 2018-10-08 17:26 | NUR ---
HAND-OFF: Report given to Daylin Yost RN.
--- NOTE | 2018-10-08 17:34 | NUR ---
NURSE NOTES: Received the patient from YING Toscano. Patient awake, alert, watching TV. S/p extubation. Patient is on venturi mask FIO2 50%, O2 sat 96%. SR noted on the monitor. No acute distress noted. Left upper PICC intact and patent, TKO. Right nare NGT intact and patent, running Jevity 1.2 at 40ml/hr. HOB elevated. Steen cath intact and patent, draining yellow urine by gravity. Patient on bilateral soft wrist restraints. No skin breakdown noted. pulses present. SCDs on bilateral lower extremities. Bed in lowest position, locked, side rails upx3. Bed alarms on. Call light within reach. Will continue to monitor.
--- NOTE | 2018-10-08 18:53 | Internal Med Progress Note ---
Subjective Date of Service: Oct 08, 2018 Physician Name Castellano,Sanford Attending Physician Benjamin Sterling MD Current Medications Medications (Trade) Dose Ordered Sig/Hoa Route PRN Reason Start Time Stop Time Status Last Admin Dose Admin Acetaminophen (Tylenol) 650 mg Q4H PRN ORAL fever (temp>100.5F) 09/28/18 03:45 10/26/18 19:44 10/05/18 15:56 Amiodarone HCl (Cordarone) 200 mg Q24H ORAL 10/02/18 20:00 11/01/18 19:59 10/07/18 19:39 Chlordiazepoxide (Librium) 25 mg Q6H PRN NG agitation 10/07/18 09:45 10/14/18 09:44 Chlorhexidine Gluconate (Zainab-Hex 2%) 1 applic DAILY@2000 TOPIC 10/03/18 20:00 11/02/18 19:59 10/07/18 19:39 Dextrose (Dextrose 50%) 25 ml Q30M PRN IV Hypoglycemia 09/28/18 01:30 10/26/18 17:59 Dextrose (Dextrose 50%) 50 ml Q30M PRN IV Hypoglycemia 09/28/18 01:30 10/26/18 17:59 Furosemide (Lasix) 20 mg Q6H PRN IV if hourly urine output <50 10/06/18 10:00 11/05/18 09:59 10/06/18 16:12 Metoprolol Tartrate 5 mg/ Dextrose 60 ml @ 130 mls/hr Q6HR PRN IVPB hr greater than 118 09/28/18 09:30 10/28/18 09:29 10/01/18 02:20 Midazolam HCl (Versed 2mg/2ml vial) 1 mg Q1H PRN IVP Agitation 09/28/18 13:00 10/28/18 12:59 10/07/18 22:22 Ondansetron HCl (Zofran) 4 mg Q6H PRN IVP Nausea & Vomiting 09/28/18 01:45 10/27/18 19:44 Pantoprazole (Protonix) 40 mg EVERY 12 HOURS IVP 10/08/18 21:00 11/07/18 20:59 Quetiapine Fumarate (SEROquel) 50 mg Q12HR ORAL 09/28/18 21:00 10/27/18 08:59 10/07/18 20:40 Thiamine HCl 100 mg/Dextrose 111 ml @ 220 mls/hr Q24H IVPB 09/28/18 11:00 10/28/18 10:59 10/08/18 10:45 Vancomycin HCl (Firvanq) 125 mg FOUR TIMES A DAY ORAL 10/04/18 13:00 10/11/18 12:59 10/08/18 18:25 Allergies: Coded Allergies: No Known Allergies (Unverified , 09/06/15) ROS Limited/Unobtainable: Yes Subjective 68 YO M admitted with hematuria and hypotension. Now atrial fibrillation with rapid ventricular rate. Cover for Int Med-Dr Sterling. ICU. Extubated 10/08/18; tolerating venturi mask Objective Last Vital Signs Date Time Temp Pulse Resp B/P (MAP) Pulse Ox O2 Delivery O2 Flow Rate FiO2 10/08/18 18:00 96 31 114/62 (79) 95 10/08/18 16:00 Venturi Mask 10/08/18 16:00 98.8 10/08/18 10:57 12.0 40 Laboratory Tests Test 10/08/18 04:15 White Blood Count 9.2 K/UL (4.8-10.8) Red Blood Count 2.72 M/UL (4.70-6.10) L Hemoglobin 8.4 G/DL (14.2-18.0) L Hematocrit 25.4 % (42.0-52.0) L Mean Corpuscular Volume 93 FL (80-99) Mean Corpuscular Hemoglobin 30.9 PG (27.0-31.0) Mean Corpuscular Hemoglobin Concent 33.1 G/DL (32.0-36.0) Red Cell Distribution Width 15.9 % (11.6-14.8) H Platelet Count 355 K/UL (150-450) Mean Platelet Volume 9.1 FL (6.5-10.1) Neutrophils (%) (Auto) 73.2 % (45.0-75.0) Lymphocytes (%) (Auto) 8.9 % (20.0-45.0) L Monocytes (%) (Auto) 12.2 % (1.0-10.0) H Eosinophils (%) (Auto) 4.3 % (0.0-3.0) H Basophils (%) (Auto) 1.4 % (0.0-2.0) Sodium Level 142 MMOL/L (136-145) Potassium Level 4.0 MMOL/L (3.5-5.1) Chloride Level 106 MMOL/L (98-107) Carbon Dioxide Level 29 MMOL/L (21-32) Anion Gap 7 mmol/L (5-15) Blood Urea Nitrogen 16 mg/dL (7-18) Creatinine 1.0 MG/DL (0.55-1.30) Estimat Glomerular Filtration Rate > 60 mL/min (>60) Glucose Level 107 MG/DL (74-106) H Calcium Level 8.2 MG/DL (8.5-10.1) L Total Bilirubin 0.3 MG/DL (0.2-1.0) Aspartate Amino Transf (AST/SGOT) 17 U/L (15-37) Alanine Aminotransferase (ALT/SGPT) 13 U/L (12-78) Alkaline Phosphatase 88 U/L (46-116) Pro-B-Type Natriuretic Peptide 607 pg/mL (0-125) H Total Protein 5.8 G/DL (6.4-8.2) L Albumin 1.7 G/DL (3.4-5.0) L Globulin 4.1 g/dL Albumin/Globulin Ratio 0.4 (1.0-2.7) L Intake and Output 10/07/18 10/08/18 19:00 07:00 Intake Total 1096 ml 570 ml Output Total 1270 ml 1040 ml Balance -174 ml -470 ml Intake Free Water 230 ml IV Total 466 ml Tube Feeding 400 ml 480 ml Other 90 ml Output Urine Total 1270 ml 1040 ml Objective General Appearance: WD/WN, no apparent distress, alert EENT: PERRL/EOMI, normal ENT inspection, TMs normal Neck: non-tender, normal alignment, supple, normal inspection Cardiovascular: Tachy; irreg/irreg; normal peripheral pulses, normal rate, no gallop/murmur, no JVD Respiratory/Chest: Venturi mask; chest wall non-tender, lungs clear, coarse upper breath sounds, no respiratory distress, no accessory muscle use Abdomen: normal bowel sounds, non tender, soft, no organomegaly, no mass Extremities: normal range of motion, non-tender Neurologic: hydrator II-XII grossly normal, no motor/sensory deficts Assessment/Plan Assessment/Plan Assessment/Plan Assessment/Plan Problem List: (1) Severe sepsis ICD Codes: A41.9 - Sepsis, unspecified organism; R65.20 - Severe sepsis without septic shock SNOMED: 12662746 (2) Acute alcoholic intoxication ICD Codes: F10.129 - Alcohol abuse with intoxication, unspecified SNOMED: 11823129 (3) Nephrolithiasis ICD Codes: N20.0 - Calculus of kidney SNOMED: 61699098 (4) Hematuria ICD Codes: R31.9 - Hematuria, unspecified SNOMED: 95096075 5. Atrial fibrillation with rapid ventricular rate 6. Respiratory failure/ARDS 7. Urinary tract infection=M 8. Morganella morganii 9. C.Diff diarrhea Assessment/Plan fernandez cultures iv abx banana bag Librium, Seroquel and Klonipin iv abx, ID evaluation Metoprolol drip per Cardiology ICU status Continue venturi mask per pulmonary Abx=Cefepime and oral Sanford Pressley MD Oct 08, 2018 18:53
--- NOTE | 2018-10-08 18:58 | NUR ---
HAND-OFF: Report given to YING Summers.
--- NOTE | 2018-10-08 19:30 | NUR ---
NURSE NOTES: Recvd.quiet in bed confused and disoriented,Resp.unlabored on 50% Cool mist Sat.93-95%.HOB >35'.Enc.deep breathing/coughing ex.See V/S.Scope SR.NGT Feeding in progress.F/Cath. patent diuresis well.On Bila. soft wrist restraints prev.self-injury.Pos.chg.Made comfortable.
[2018-10-08] MEDS: Amiodarone 200mg tab ORAL SCH (19:58)
[2018-10-08] MEDS: Dyna-Hex 2% Top Sol 2oz TOPIC SCH (19:58)
--- NOTE | 2018-10-08 22:00 | NUR ---
NURSE NOTES: HS care rendered.Pos.chg.Backrub with lotion.Due meds admin.No distress.
[2018-10-09] VITALS (19 sets, daily range): BP systolic 85–123; BP diastolic 48–69
--- NOTE | 2018-10-09 00:10 | NUR ---
NURSE NOTES: Repositioned,Kept comfortable.Cont.to re-orient,re-assured.See V/S.Scope Rhythm same.Maintain on 50% Coolmist.Sat.93-96%.No Distress.
--- NOTE | 2018-10-09 02:00 | NUR ---
NURSE NOTES: Asleep,Resp.unlabored.P.Ox.93-95%on 50% Coolmist.Pos. chg.Cont.Plan of care.
--- NOTE | 2018-10-09 04:08 | NUR ---
NURSE NOTES: celina Becker.Blood drawn for cbc/cmp and bnp.Spec.to Lab.Cont.to diuresis well.See I/O.
[2018-10-09 05:48] LABS: BASOPHILS % (AUTO) 1.5 % (0.0-2.0); EOSINOPHILS % (AUTO) 3.5 % (0.0-3.0); HEMATOCRIT 27.5 % (42.0-52.0); HEMOGLOBIN 9.1 G/DL (14.2-18.0); LYMPHOCYTES % (AUTO) 8.3 % (20.0-45.0); MEAN CORPUSCULAR VOLUME 93 FL (80-99); MONOCYTES % (AUTO) 12.4 % (1.0-10.0); NEUTROPHILS % (AUTO) 74.3 % (45.0-75.0); PLATELET COUNT 417 K/UL (150-450); RED BLOOD COUNT 2.94 M/UL (4.70-6.10); RED CELL DISTRIBUTION WIDTH 15.6 % (11.6-14.8); WHITE BLOOD COUNT 11.5 K/UL (4.8-10.8)
[2018-10-09 06:17] LABS: ALANINE AMINOTRANSFERASE 14 U/L (12-78); ALBUMIN 1.8 G/DL (3.4-5.0); ALBUMIN/GLOBULIN RATIO 0.4 (1.0-2.7); ALKALINE PHOSPHATASE 91 U/L (46-116); ANION GAP 6 mmol/L (5-15); ASPARTATE AMINO TRANSFERASE 24 U/L (15-37); BILIRUBIN,TOTAL 0.5 MG/DL (0.2-1.0); BLOOD UREA NITROGEN 15 mg/dL (7-18); CALCIUM 8.1 MG/DL (8.5-10.1); CARBON DIOXIDE 30 MMOL/L (21-32); CHLORIDE 105 MMOL/L (98-107); POTASSIUM 3.9 MMOL/L (3.5-5.1); SODIUM 141 MMOL/L (136-145)
--- NOTE | 2018-10-09 07:11 | NUR ---
HAND-OFF: Report given to DEYANIRA ANSARI RN.
--- NOTE | 2018-10-09 07:12 | NUR ---
NURSE NOTES: Report received from Virgilio HE. Pt is awake, alert, confused, laying in bed in semi-javed's position. Pt is on Venturi mask at 50% FIO2 with O2Sat at 98%, (per report, pt was extubated yesterday 10/08/18). front desk monitor displays NSR. IV access present on left UA, double lumen PICC, patent/intact. NG tube is in place; pt is receiving Jeviti 1.2 at 40mL/hour, tolerating feeding well with no residual and no s/s of nausea/vomiting present. Abdomen is soft to touch. Hypoactive bowel sounds are auscultated in all four quadrants. Steen catheter is in place, draining clear/yellow urine. Pt has bilateral soft wrist restraints; skin integrity at restraint site is within normal limits. No edema present in extremities. Skin is intact. Bilateral SCDs in place. Bed is locked with three side rails up and call light within easy reach. Will continue to monitor pt and follow plan of care per MD orders and protocol.
--- NOTE | 2018-10-09 08:00 | NUR ---
NURSE NOTES: Pt is observed attempting to get out of bed, and attempting to pull NG tube, cardiac-monitor leads and Steen out, despite reorientation and attempts in distracting pt. Soft wrist restraints are in place bilaterally, and skin integrity is within normal limits at restraint site. Will continue to monitor pt.
--- NOTE | 2018-10-09 08:33 | NUR ---
CHEST X-RAY COMPLETED AT 0725 HRS BY Allison LIVE.
--- NOTE | 2018-10-09 09:00 | NUR ---
NURSE NOTES: Dr Petty assessed pt. informed of elevated BNP and WBC, and fluctuating oral temp 99.1F to 99.6F. ordered ST/swallow eval, stop NG/feeding and remove NG tube, pending swallow eval. Will process and follow orders. Addendum: 10/09/18 at 1426 by PRINCESS CAMPOS RN Dr Petty ordered Lasix 20mg IV x1. Order was processed and followed.
--- NOTE | 2018-10-09 09:05 | NUR ---
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 ACUTE ALCOHOLIC INTOXICATION VS: BP 99/58, P 86, T 98.7, RR 27, SpO2 94 on V.MASK O2 12.0L FiO2 40 WBC 11.5, RBC 2.94, Hgb 9.1, Hct 27.5, Ca 8.1 IS:THIAMINE HCI 111ml IVPB SEROQUEL 50mg CORDARONE 200mg VANCOMYCIN 125mg PROTONIX 40mg IVP ICU STATUS
[2018-10-09] MEDS: Pantoprazole Inj IVP SCH ×2 (09:11→20:45)
[2018-10-09] MEDS: Vancomycin oral 125mg/2.5ml ORAL SCH ×4 (09:12→21:00)
--- NOTE | 2018-10-09 09:30 | NUR ---
NURSE NOTES: Per Dr Petty's order, RT at bedside, switched Venturi mask to Nasal Cannula at 4.0 Liters. Pt it tolerating well, with O2sat at 96-99%. Also, NG tube is removed, per MD orders, feeding is pending swallow eval.
--- NOTE | 2018-10-09 09:31 | Diagnostic Imaging Report ---
Indication: Dyspnea Technique: One view of the chest Comparison: 10/08/2018 Findings: Interim removal of previously demonstrated endotracheal tube. Nasogastric tube remains. Interim worsening of bilateral diffuse interstitial and airspace disease, particularly in the left perihilar region and right upper lobe. There is evidence of slightly increasing small left pleural effusion. The heart size is upper limits of normal. Impression: Interim extubation Worsening bilateral interstitial and airspace parenchymal disease as described Suspect slightly increased small left pleural effusion
--- NOTE | 2018-10-09 10:00 | NUR ---
NURSE NOTES: Speech therapist saw/assessed pt at bedside. Per ST recommendation, feeding is to be held until tomorrow, to re-eval swallow.
--- NOTE | 2018-10-09 10:05 | Pulmonolgy Critical Care Note ---
Critical Care - Asmt/Plan Problems: (1) Acute respiratory failure with hypoxemia (2) ARDS (adult respiratory distress syndrome) (3) ATN (acute tubular necrosis) (4) Delirium tremens (5) Rapid atrial fibrillation Respiratory: monitor respiratory rate, adjust FIO2, CXR Cardiac: continue to monitor HR/BP Renal: F/U I&O Infectious Disease: check cultures Gastrointestinal: continue feedings/current rate Endocrine: monitor blood sugar Hematologic: monitor H/H, transfuse if hgb<8.5 Neurologic: PRN Ativan, PRN Morphine, keep patient comfortable Prophylaxis: Protonix Disposition: keep in ICU Notes Reviewed: cardio, renal 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, consultants, keycase assemblerhardware manager - Objective Last 24 Hour Vital Signs Date Time Temp Pulse Resp B/P (MAP) Pulse Ox O2 Delivery O2 Flow Rate FiO2 10/09/18 09:00 Venturi Mask 12.0 40 10/09/18 09:00 98 Venturi Mask 12.0 40 10/09/18 09:00 84 25 106/57 (73) 97 10/09/18 08:00 99.6 88 23 114/52 (72) 97 10/09/18 07:00 86 26 102/56 (71) 95 10/09/18 06:00 90 27 99/58 (72) 94 10/09/18 05:00 88 27 123/68 (86) 94 10/09/18 04:00 89 10/09/18 04:00 98.7 89 26 112/62 (79) 94 10/09/18 04:00 Venturi Mask Venturi Mask 10/09/18 03:00 94 26 122/65 (84) 94 10/09/18 02:00 103 23 121/61 (81) 95 10/09/18 01:19 96 Venturi Mask 12.0 40 10/09/18 01:19 Venturi Mask 12.0 40 10/09/18 01:00 96 23 120/67 (84) 93 10/09/18 00:00 98.9 88 21 103/62 (76) 92 10/09/18 00:00 Venturi Mask Venturi Mask 10/09/18 00:00 91 10/08/18 23:00 86 24 99/54 (69) 93 10/08/18 22:00 87 23 101/54 (70) 94 10/08/18 21:00 89 22 98/55 (69) 95 10/08/18 20:00 Venturi Mask Venturi Mask 10/08/18 20:00 99.1 93 25 124/70 (88) 93 10/08/18 20:00 93 10/08/18 19:29 97 Venturi Mask 12.0 40 10/08/18 19:29 Venturi Mask 12.0 40 10/08/18 19:00 98 32 114/66 (82) 92 10/08/18 18:00 96 31 114/62 (79) 95 10/08/18 17:00 96 29 131/73 (92) 85 10/08/18 16:46 105 10/08/18 16:00 Venturi Mask 10/08/18 16:00 98.8 95 26 121/65 (83) 93 10/08/18 15:00 91 34 116/63 (80) 93 10/08/18 14:00 101 25 116/63 (80) 96 10/08/18 14:00 90 25 110/59 (76) 100 10/08/18 13:00 90 25 110/59 (76) 100 10/08/18 12:00 98.8 81 23 113/66 (82) 99 10/08/18 12:00 Venturi Mask 10/08/18 11:46 81 10/08/18 11:00 82 22 108/65 (79) 100 10/08/18 10:57 100 Venturi Mask 12.0 40 10/08/18 10:57 Venturi Mask 12.0 40 10/08/18 10:36 Venturi Mask 10.0 40 10/08/18 10:35 Venturi Mask Status: awake Condition: critical HEENT: atraumatic, normocephalic Lungs: clear Heart: HR/BP stable Abdomen: soft, active bowel sounds Extremities: no C/C/E, edema Critical Care - Subjective ROS Limited/Unobtainable: No Interval Events: tolerating extubation Condition: critical EKG Rhythm: Sinus Rhythm FI02: 40 Vent Support Breath Rate: 16 Vent Support Mode: CPAP Vent Tidal Volume: 600 Sputum Amount: Scant PEEP: 5.0 PIP: 17 Tube Feeding Amount: 40 I&O: Intake and Output 10/08/18 10/09/18 19:00 07:00 Intake Total 741 ml 530 ml Output Total 1775 ml 1030 ml Balance -1034 ml -500 ml Intake Free Water 50 ml 50 ml IV Total 111 ml Tube Feeding 480 ml 480 ml Other 100 ml Output Urine Total 1775 ml 1030 ml CXR: extensive pulmonary edema ET-Tube: 7.5 ET Position: 23 Labs: Laboratory Tests Test 10/09/18 04:00 10/09/18 05:00 Sodium Level 141 MMOL/L (136-145) Potassium Level 3.9 MMOL/L (3.5-5.1) Chloride Level 105 MMOL/L (98-107) Carbon Dioxide Level 30 MMOL/L (21-32) Anion Gap 6 mmol/L (5-15) Blood Urea Nitrogen 15 mg/dL (7-18) Creatinine 1.0 MG/DL (0.55-1.30) Estimat Glomerular Filtration Rate > 60 mL/min (>60) Glucose Level 90 MG/DL (74-106) Calcium Level 8.1 MG/DL (8.5-10.1) L Total Bilirubin 0.5 MG/DL (0.2-1.0) Aspartate Amino Transf (AST/SGOT) 24 U/L (15-37) Alanine Aminotransferase (ALT/SGPT) 14 U/L (12-78) Alkaline Phosphatase 91 U/L (46-116) Pro-B-Type Natriuretic Peptide 2482 pg/mL (0-125) H Total Protein 6.0 G/DL (6.4-8.2) L Albumin 1.8 G/DL (3.4-5.0) L Globulin 4.2 g/dL Albumin/Globulin Ratio 0.4 (1.0-2.7) L White Blood Count 11.5 K/UL (4.8-10.8) H Red Blood Count 2.94 M/UL (4.70-6.10) L Hemoglobin 9.1 G/DL (14.2-18.0) L Hematocrit 27.5 % (42.0-52.0) L Mean Corpuscular Volume 93 FL (80-99) Mean Corpuscular Hemoglobin 30.8 PG (27.0-31.0) Mean Corpuscular Hemoglobin Concent 33.0 G/DL (32.0-36.0) Red Cell Distribution Width 15.6 % (11.6-14.8) H Platelet Count 417 K/UL (150-450) Mean Platelet Volume 8.0 FL (6.5-10.1) Neutrophils (%) (Auto) 74.3 % (45.0-75.0) Lymphocytes (%) (Auto) 8.3 % (20.0-45.0) L Monocytes (%) (Auto) 12.4 % (1.0-10.0) H Eosinophils (%) (Auto) 3.5 % (0.0-3.0) H Basophils (%) (Auto) 1.5 % (0.0-2.0) Garret Petty MD Oct 09, 2018 10:05
[2018-10-09] MEDS: Thiamine HCl 100 MG in D5W 110 ML IVPB SCH (10:23)
--- NOTE | 2018-10-09 10:33 | Nephrology Progress Note ---
Assessment/Plan Problem List: (1) ATN (acute tubular necrosis) (2) ARDS (adult respiratory distress syndrome) (3) Acute respiratory failure with hypoxemia Assessment: extubated 10/08 Assessment (1) Acute respiratory failure with hypoxemia- On Vent (2) ARDS (adult respiratory distress syndrome) (3) ATN (acute tubular necrosis)- resolved (4) Delirium tremens (5) Rapid atrial fibrillation Plan stable from renal stand feeding by tube post extubation toilet Librium PRN Keep BP under control Avoid nephrotoxics monitor renal parameters Albumin boluses as needed k and phos and Mag as needed Subjective ROS Limited/Unobtainable: No Objective Objective Last 24 Hour Vital Signs Date Time Temp Pulse Resp B/P (MAP) Pulse Ox O2 Delivery O2 Flow Rate FiO2 10/09/18 09:00 Venturi Mask 12.0 40 10/09/18 09:00 98 Venturi Mask 12.0 40 10/09/18 09:00 84 25 106/57 (73) 97 10/09/18 08:00 99.6 88 23 114/52 (72) 97 10/09/18 07:00 86 26 102/56 (71) 95 10/09/18 06:00 90 27 99/58 (72) 94 10/09/18 05:00 88 27 123/68 (86) 94 10/09/18 04:00 89 10/09/18 04:00 98.7 89 26 112/62 (79) 94 10/09/18 04:00 Venturi Mask Venturi Mask 10/09/18 03:00 94 26 122/65 (84) 94 10/09/18 02:00 103 23 121/61 (81) 95 10/09/18 01:19 96 Venturi Mask 12.0 40 10/09/18 01:19 Venturi Mask 12.0 40 10/09/18 01:00 96 23 120/67 (84) 93 10/09/18 00:00 98.9 88 21 103/62 (76) 92 10/09/18 00:00 Venturi Mask Venturi Mask 10/09/18 00:00 91 10/08/18 23:00 86 24 99/54 (69) 93 10/08/18 22:00 87 23 101/54 (70) 94 10/08/18 21:00 89 22 98/55 (69) 95 10/08/18 20:00 Venturi Mask Venturi Mask 10/08/18 20:00 99.1 93 25 124/70 (88) 93 10/08/18 20:00 93 10/08/18 19:29 97 Venturi Mask 12.0 40 10/08/18 19:29 Venturi Mask 12.0 40 10/08/18 19:00 98 32 114/66 (82) 92 10/08/18 18:00 96 31 114/62 (79) 95 10/08/18 17:00 96 29 131/73 (92) 85 10/08/18 16:46 105 10/08/18 16:00 Venturi Mask 10/08/18 16:00 98.8 95 26 121/65 (83) 93 10/08/18 15:00 91 34 116/63 (80) 93 10/08/18 14:00 101 25 116/63 (80) 96 10/08/18 14:00 90 25 110/59 (76) 100 10/08/18 13:00 90 25 110/59 (76) 100 10/08/18 12:00 98.8 81 23 113/66 (82) 99 10/08/18 12:00 Venturi Mask 10/08/18 11:46 81 10/08/18 11:00 82 22 108/65 (79) 100 10/08/18 10:57 100 Venturi Mask 12.0 40 10/08/18 10:57 Venturi Mask 12.0 40 10/08/18 10:36 Venturi Mask 10.0 40 10/08/18 10:35 Venturi Mask Intake and Output 10/08/18 10/09/18 19:00 07:00 Intake Total 741 ml 530 ml Output Total 1775 ml 1030 ml Balance -1034 ml -500 ml Intake Free Water 50 ml 50 ml IV Total 111 ml Tube Feeding 480 ml 480 ml Other 100 ml Output Urine Total 1775 ml 1030 ml Laboratory Tests 10/09/18 04:00: Sodium Level 141, Potassium Level 3.9, Chloride Level 105, Carbon Dioxide Level 30, Anion Gap 6, Blood Urea Nitrogen 15, Creatinine 1.0, Estimat Glomerular Filtration Rate > 60, Glucose Level 90, Calcium Level 8.1L, Total Bilirubin 0.5 , Aspartate Amino Transf (AST/SGOT) 24, Alanine Aminotransferase (ALT/SGPT) 14, Alkaline Phosphatase 91, Pro-B-Type Natriuretic Peptide 2482H, Total Protein 6.0L, Albumin 1.8L, Globulin 4.2, Albumin/Globulin Ratio 0.4L 10/09/18 05:00: White Blood Count 11.5H, Red Blood Count 2.94L, Hemoglobin 9.1L, Hematocrit 27.5L, Mean Corpuscular Volume 93, Mean Corpuscular Hemoglobin 30.8, Mean Corpuscular Hemoglobin Concent 33.0, Red Cell Distribution Width 15.6H, Platelet Count 417, Mean Platelet Volume 8.0, Neutrophils (%) (Auto) 74.3, Lymphocytes (%) (Auto) 8.3L, Monocytes (%) (Auto) 12.4H, Eosinophils (%) (Auto) 3.5H, Basophils (%) (Auto) 1.5 Height (Feet): 5 Height (Inches): 6.00 Weight (Pounds): 147 EENT: other - on BIPAP- Extubated yesterday Cardiovascular: normal rate Respiratory/Chest: decreased breath sounds Abdomen: soft Objective no other change Kaden Cordova MD Oct 09, 2018 10:33
--- NOTE | 2018-10-09 11:00 | NUR ---
NURSE NOTES: Pt was seen by Dr Cordova. No new orders at this time.
--- NOTE | 2018-10-09 11:05 | NUR ---
*-* INSURANCE *-* UPDATED CLINICALS FAXED TO: FAXED TO THE [facility] FAX NUMBER [facility] [phone] Work Fax
--- NOTE | 2018-10-09 11:07 | Infectious Diseases Prog Note ---
Assessment/Plan Assessment/Plan Sepsis/Septic shock- now off pressors -10/03 Bcx NTD -09/26 Bcx Neg Probable UTI,sp Rx -u/a wbc 15-20, nit neg, leuk +3; ucx Morganella morganni (R ancef, amp; otherwise S) Fever- probable multifactorial 2ry to alcohol withdrawal, UTI; improving Leukocytosis, SP -Cdiff + Etoh intoxication- now ETOH withdrawal w/ DT Acute respiratory failure/ ARDS s/p intubation -CXR Extensive airspace disease again demonstrated without change. Thrombocytopenia- probably in the setting of sepsis and bone marrow suppression 2ry to EtOH Afib w/ RVR KARLA, improving EtOH abuse, nephrolithiasis Plan: - Cont PO Vancomycin #12/19 for Cdiff colitis -10/07/18 SP Cefepime #8 -09/29 SP Ceftriaxone # -09/26 SP Zosyn x1 -f.u cx -Monitor CBC/CMP, temperatures -aspiration precautions -ETT/ICU care Will continue to follow along with you. Subjective Allergies: Coded Allergies: No Known Allergies (Unverified , 09/06/15) Subjective Afebrile 24hr Leukocytosis mild Objective Vital Signs Last 24 Hour Vital Signs Date Time Temp Pulse Resp B/P (MAP) Pulse Ox O2 Delivery O2 Flow Rate FiO2 10/09/18 09:00 Venturi Mask 12.0 40 10/09/18 09:00 98 Venturi Mask 12.0 40 10/09/18 09:00 84 25 106/57 (73) 97 10/09/18 08:00 99.6 88 23 114/52 (72) 97 10/09/18 07:00 86 26 102/56 (71) 95 10/09/18 06:00 90 27 99/58 (72) 94 10/09/18 05:00 88 27 123/68 (86) 94 10/09/18 04:00 89 10/09/18 04:00 98.7 89 26 112/62 (79) 94 10/09/18 04:00 Venturi Mask Venturi Mask 10/09/18 03:00 94 26 122/65 (84) 94 10/09/18 02:00 103 23 121/61 (81) 95 10/09/18 01:19 96 Venturi Mask 12.0 40 10/09/18 01:19 Venturi Mask 12.0 40 10/09/18 01:00 96 23 120/67 (84) 93 10/09/18 00:00 98.9 88 21 103/62 (76) 92 10/09/18 00:00 Venturi Mask Venturi Mask 10/09/18 00:00 91 10/08/18 23:00 86 24 99/54 (69) 93 10/08/18 22:00 87 23 101/54 (70) 94 10/08/18 21:00 89 22 98/55 (69) 95 10/08/18 20:00 Venturi Mask Venturi Mask 10/08/18 20:00 99.1 93 25 124/70 (88) 93 10/08/18 20:00 93 10/08/18 19:29 97 Venturi Mask 12.0 40 10/08/18 19:29 Venturi Mask 12.0 40 10/08/18 19:00 98 32 114/66 (82) 92 10/08/18 18:00 96 31 114/62 (79) 95 10/08/18 17:00 96 29 131/73 (92) 85 10/08/18 16:46 105 10/08/18 16:00 Venturi Mask 10/08/18 16:00 98.8 95 26 121/65 (83) 93 10/08/18 15:00 91 34 116/63 (80) 93 10/08/18 14:00 101 25 116/63 (80) 96 10/08/18 14:00 90 25 110/59 (76) 100 10/08/18 13:00 90 25 110/59 (76) 100 10/08/18 12:00 98.8 81 23 113/66 (82) 99 10/08/18 12:00 Venturi Mask 10/08/18 11:46 81 Height (Feet): 5 Height (Inches): 6.00 Weight (Pounds): 147 Objective General: NAD HEENT: normocephalic, atraumatic, EOMI Respiratory/Chest: Coarse B/L Cardiovascular/Chest: RRR, S1, S2 Abdomen: Soft, Normal bowel sounds Laboratory Tests Test 10/09/18 04:00 10/09/18 05:00 Sodium Level 141 MMOL/L (136-145) Potassium Level 3.9 MMOL/L (3.5-5.1) Chloride Level 105 MMOL/L (98-107) Carbon Dioxide Level 30 MMOL/L (21-32) Anion Gap 6 mmol/L (5-15) Blood Urea Nitrogen 15 mg/dL (7-18) Creatinine 1.0 MG/DL (0.55-1.30) Estimat Glomerular Filtration Rate > 60 mL/min (>60) Glucose Level 90 MG/DL (74-106) Calcium Level 8.1 MG/DL (8.5-10.1) L Total Bilirubin 0.5 MG/DL (0.2-1.0) Aspartate Amino Transf (AST/SGOT) 24 U/L (15-37) Alanine Aminotransferase (ALT/SGPT) 14 U/L (12-78) Alkaline Phosphatase 91 U/L (46-116) Pro-B-Type Natriuretic Peptide 2482 pg/mL (0-125) H Total Protein 6.0 G/DL (6.4-8.2) L Albumin 1.8 G/DL (3.4-5.0) L Globulin 4.2 g/dL Albumin/Globulin Ratio 0.4 (1.0-2.7) L White Blood Count 11.5 K/UL (4.8-10.8) H Red Blood Count 2.94 M/UL (4.70-6.10) L Hemoglobin 9.1 G/DL (14.2-18.0) L Hematocrit 27.5 % (42.0-52.0) L Mean Corpuscular Volume 93 FL (80-99) Mean Corpuscular Hemoglobin 30.8 PG (27.0-31.0) Mean Corpuscular Hemoglobin Concent 33.0 G/DL (32.0-36.0) Red Cell Distribution Width 15.6 % (11.6-14.8) H Platelet Count 417 K/UL (150-450) Mean Platelet Volume 8.0 FL (6.5-10.1) Neutrophils (%) (Auto) 74.3 % (45.0-75.0) Lymphocytes (%) (Auto) 8.3 % (20.0-45.0) L Monocytes (%) (Auto) 12.4 % (1.0-10.0) H Eosinophils (%) (Auto) 3.5 % (0.0-3.0) H Basophils (%) (Auto) 1.5 % (0.0-2.0) Current Medications Medications (Trade) Dose Ordered Sig/Hoa Route PRN Reason Start Time Stop Time Status Last Admin Dose Admin Acetaminophen (Tylenol) 650 mg Q4H PRN ORAL fever (temp>100.5F) 09/28/18 03:45 10/26/18 19:44 10/05/18 15:56 Amiodarone HCl (Cordarone) 200 mg Q24H ORAL 10/02/18 20:00 11/01/18 19:59 10/08/18 19:58 Chlordiazepoxide (Librium) 25 mg Q6H PRN NG agitation 10/07/18 09:45 10/14/18 09:44 Chlorhexidine Gluconate (Zainab-Hex 2%) 1 applic DAILY@2000 TOPIC 10/03/18 20:00 11/02/18 19:59 10/08/18 19:58 Dextrose (Dextrose 50%) 25 ml Q30M PRN IV Hypoglycemia 09/28/18 01:30 10/26/18 17:59 Dextrose (Dextrose 50%) 50 ml Q30M PRN IV Hypoglycemia 09/28/18 01:30 10/26/18 17:59 Furosemide (Lasix) 20 mg ONCE IV 10/09/18 10:15 10/09/18 11:30 10/09/18 10:23 Furosemide (Lasix) 20 mg Q6H PRN IV if hourly urine output < 100 10/09/18 10:00 11/05/18 09:59 Metoprolol Tartrate 5 mg/ Dextrose 60 ml @ 130 mls/hr Q6HR PRN IVPB hr greater than 118 09/28/18 09:30 10/28/18 09:29 10/01/18 02:20 Midazolam HCl (Versed 2mg/2ml vial) 1 mg Q1H PRN IVP Agitation 09/28/18 13:00 10/28/18 12:59 10/07/18 22:22 Ondansetron HCl (Zofran) 4 mg Q6H PRN IVP Nausea & Vomiting 09/28/18 01:45 10/27/18 19:44 Pantoprazole (Protonix) 40 mg EVERY 12 HOURS IVP 10/08/18 21:00 11/07/18 20:59 10/09/18 09:11 Quetiapine Fumarate (SEROquel) 50 mg Q12HR ORAL 09/28/18 21:00 10/27/18 08:59 10/09/18 09:12 Thiamine HCl 100 mg/Dextrose 111 ml @ 220 mls/hr Q24H IVPB 09/28/18 11:00 10/28/18 10:59 10/09/18 10:23 Vancomycin HCl (Firvanq) 125 mg FOUR TIMES A DAY ORAL 10/04/18 13:00 10/11/18 12:59 10/09/18 09:12 Barney Neil MD Oct 09, 2018 11:07
--- NOTE | 2018-10-09 12:01 | NUR ---
ST NOTE: BEDSIDE SWALLOW EVAL RECEIVED BEDSIDE SWALLOW EVAL ORDER CHART REVIEWED PRIOR THE EVALUATION PT IS A 68-YEAR-OLD MALE WHO WAS ADMITTED DUE TO DEHYDRATION AND HEMATURIA; AND ACUTE ALCOHOLIC INTOXICATION. PT DEVELOPED ACUTE RESPIRATORY FAILURE WITH HYPOXEMIA DURING THE HOSPITALIZATION AND WAS INTUBATED ON 09/28/18 AND EXTUBATED ON 10/08/18. DYSPHAGIA RISK FACTORS: SEVERE SEPSIS, H/O ETOH ABUSE, UTI, S/P EXTUBATION(10 DAYS). PER CXR: WORSENING BILATERAL INTERSTITIAL AND AIRSPACE PARENCHYMAL DISEASE SUSPECTED SLIGHTLY INCREASED SMALL L PLEURAL EFFUSION. PLOF: PT RESIDES AT HOME. NO POLST WAS NOTED IN THE CHART. CURRENT STATUS: PT SEEN AT BEDSIDE IN LATE AM. ALERT, CONFUSED. INCONSISTENTLY FOLLOWS SIMPLE DIRECTIONS, PT WITH NC(4L). VOICE IS CLEAR. SPO2: 93-100%; RR: MID 20s. PER RN, MINIMAL SECRETION WHEN SUCTION. GIVEN PO TRIALS: NECTAR THICK(TSP X 2) AND PUREE(TSP X 1). INITIAL IMPRESSION: PROBABLE MILD TO MODERATE OROPHARYNGEAL DYSPHAGIA POOR DENTITION, MISSING TEETH MILDLY TO MODERATELY INCREASED ORAL TRANSIT TIME(4 SECS), QUESTIONABLE RELATED TO PT'S BEHAVIOR AND MILDLY INCREASED OROPHARYNGEAL TRANSIT TIME, FAIR LARYNGEAL ELEVATION, NO OVERT S/S OF ASPIRATION. DUE TO PT HAS H/O ETOH AND S/P EXTUBATION, PT HAS RISK FOR ASPIRATION. PER RT, PT SOUNDS CONGESTED. RECOMMENDATIONS: 1. CONSERVATIVELY, KEEP PT NPO UNTIL TOMORROW. 2. IF PO IS GIVEN FOR QUALITY OF LIFE, DIET IS RECOMMENDED MOIST PUREE WITH NECTAR THICK LIQUIDS. 3. STRICT ASPIRATION PRECAUTIONS WITH 1TO1 FEEDING. 4. MODIFIED BARIUM SWALLOW STUDY IF NEEDED AND ONLY IF PT IS WILLING TO PARTICIPATE. D/W RN, JORGE AND DEYANIRA ANSARI. POSTED NPO SIGN AND ASPIRATION PRECAUTIONS SIGN.
--- NOTE | 2018-10-09 12:15 | NUR ---
NURSE NOTES: Pt is awake, alert, confused, laying in bed in semi-javed's position, attempting to get out of bed, and reach for the Steen catheter that is in place. Pt is on nasal cannula at 4L with O2Sat at 98%. lineman service or work dispatcher displays NSR. IV access present on left UA, double lumen PICC, patent/intact. Currently NPO per ST recommendation to maintain feeding off until tomorrow to repeat swallow eval. Hypoactive bowel sounds are auscultated in all four quadrants. Steen catheter is in place, draining clear/yellow urine. Pt has bilateral soft wrist restraints; skin integrity at restraint site is within normal limits. No edema present in extremities. Skin is intact. Bilateral SCDs in place. Bed is locked with three side rails up and call light within easy reach. Will continue to monitor pt and follow plan of care per MD orders and protocol.
--- NOTE | 2018-10-09 12:16 | NUR ---
RD ASSESSMENT & RECOMMENDATIONS SEE CARE ACTIVITY FOR COMPLETE ASSESSMENT DAILY ESTIMATED NEEDS: Needs based on cardiac 70kg 25-30 kcals/kg 2318-0494 total kcals 1-1.3 g protein/kg 70-91 g total protein 20-25 mL/kg 5017-6328 total fluid mLs NUTRITION DIAGNOSIS: 1) Swallowing difficulty r/t respiratory status as evidenced by s/p extubation, s/p NGT removal, DENTAL INSURANCE BILLER recommends pureed moist texture, NTL if PO given for quality of life. 2) Altered nutrition related lab values r/t clinical status as evidenced by low pH-> now wnl, elev WBC (22->11.5), elev Na (147- wnl), Low K (3.3-> wnl), low Mg (1.7), elev BG (216-> wnl), elev phos (5.4-> wnl), elev BNP (1636->2482), and elev serum alcohol on adm. CURRENT DIET: NPO CURRENT TF:Jevity 1.2 @ 40ml/hr x 24 hrs -> active order but s/p NGT removal PO DIET RECOMMENDATIONS: Liberalized Regular/ texture per DENTAL INSURANCE BILLER ADDITIONAL RECOMMENDATIONS: 1) Calibrated bedscale wts. 2) Continue w/ thiamine, add MVI- h/o ETOH abuse 3) Monitor lytes, replete as needed (low mag) 4) Monitor PO intake and tolerance closely- s/p extubation on 10/08 .
--- NOTE | 2018-10-09 13:47 | NUR ---
NURSE NOTES: Notified Dr Neil that Pt needs to be NPO by speech therapist and has no access for oral Vancomycin. Will start Flagyl if pt needs to be NPO more than one day as per Dr Neil. No new orders for now.
[2018-10-09] MEDS ORDERED: chlordiazePOXIDE 25mg Cap NG PRN (15:24)
--- NOTE | 2018-10-09 15:30 | NUR ---
NURSE NOTES: Cleaned and repositioned pt. VSS. No respiratory distress noted. Pt is awake and confused. Will get ready for transfer to SDU.
[2018-10-09] MEDS ORDERED: Midazolam 2mg/2ml Inj IVP PRN (16:00)
--- NOTE | 2018-10-09 16:00 | NUR ---
TRANSFER TO FLOOR: Patient transferred to [facility]. Report given to [facility]. Belongings and medications given to [facility]. Will inform family of transfer.
--- NOTE | 2018-10-09 16:24 | NUR ---
NURSE NOTES: Received report [facility],patient quiet,on bilateral wrist restraints,valle catheter-yellow urine,left upper arm PICC dressing dry intact-[facility] Ar[facility] place date last dressing change,head elevated NPO ,for swallowing evaluation in AM,,close watch patient fall risk
[2018-10-09] MEDS ORDERED: Metoprolol Tartrate 5 MG in D5W 55 ML IVPB PRN (18:00)
--- NOTE | 2018-10-09 19:02 | Internal Med Progress Note ---
Subjective Date of Service: Oct 09, 2018 Physician Name Castellano,Sanford Attending Physician Benjamin Sterling MD Current Medications Medications (Trade) Dose Ordered Sig/Hoa Route PRN Reason Start Time Stop Time Status Last Admin Dose Admin Acetaminophen (Tylenol) 650 mg Q4H PRN ORAL fever (temp>100.5F) 10/09/18 15:23 11/08/18 15:22 Amiodarone HCl (Cordarone) 200 mg Q24H ORAL 10/09/18 20:00 11/01/18 19:59 Chlordiazepoxide (Librium) 25 mg Q6H PRN NG agitation 10/09/18 15:24 10/16/18 15:23 Chlorhexidine Gluconate (Zainab-Hex 2%) 1 applic DAILY@2000 TOPIC 10/09/18 20:00 11/02/18 19:59 Dextrose (Dextrose 50%) 25 ml Q30M PRN IV Hypoglycemia 10/09/18 15:30 10/26/18 17:59 Dextrose (Dextrose 50%) 50 ml Q30M PRN IV Hypoglycemia 10/09/18 15:30 10/26/18 17:59 Furosemide (Lasix) 20 mg Q6H PRN IV if hourly urine output < 100 10/09/18 15:24 11/08/18 15:23 Metoprolol Tartrate 5 mg/ Dextrose 60 ml @ 130 mls/hr Q6H PRN IVPB hr greater than 118 10/09/18 18:00 11/08/18 17:59 Ondansetron HCl (Zofran) 4 mg Q6H PRN IVP Nausea & Vomiting 10/09/18 15:24 11/08/18 15:23 Pantoprazole (Protonix) 40 mg EVERY 12 HOURS IVP 10/09/18 21:00 11/07/18 20:59 Quetiapine Fumarate (SEROquel) 50 mg Q12HR ORAL 10/09/18 21:00 10/27/18 08:59 Thiamine HCl 100 mg/Dextrose 111 ml @ 220 mls/hr Q24H IVPB 10/10/18 11:00 10/28/18 10:59 Vancomycin HCl (Firvanq) 125 mg FOUR TIMES A DAY ORAL 10/09/18 18:00 10/11/18 12:59 Allergies: Coded Allergies: No Known Allergies (Unverified , 09/06/15) Subjective 68 YO M admitted with hematuria and hypotension. Now atrial fibrillation with rapid ventricular rate. Cover for Int Med-Dr Sterling. SEDRICK. Extubated 10/08/18; tolerating nasal canula Objective Last Vital Signs Date Time Temp Pulse Resp B/P (MAP) Pulse Ox O2 Delivery O2 Flow Rate FiO2 10/09/18 16:30 98.2 86 19 106/59 (75) 92 10/09/18 16:00 Nasal Cannula 4.0 Nasal Cannula 4.0 10/09/18 09:00 40 Laboratory Tests Test 10/09/18 04:00 10/09/18 05:00 Sodium Level 141 MMOL/L (136-145) Potassium Level 3.9 MMOL/L (3.5-5.1) Chloride Level 105 MMOL/L (98-107) Carbon Dioxide Level 30 MMOL/L (21-32) Anion Gap 6 mmol/L (5-15) Blood Urea Nitrogen 15 mg/dL (7-18) Creatinine 1.0 MG/DL (0.55-1.30) Estimat Glomerular Filtration Rate > 60 mL/min (>60) Glucose Level 90 MG/DL (74-106) Calcium Level 8.1 MG/DL (8.5-10.1) L Total Bilirubin 0.5 MG/DL (0.2-1.0) Aspartate Amino Transf (AST/SGOT) 24 U/L (15-37) Alanine Aminotransferase (ALT/SGPT) 14 U/L (12-78) Alkaline Phosphatase 91 U/L (46-116) Pro-B-Type Natriuretic Peptide 2482 pg/mL (0-125) H Total Protein 6.0 G/DL (6.4-8.2) L Albumin 1.8 G/DL (3.4-5.0) L Globulin 4.2 g/dL Albumin/Globulin Ratio 0.4 (1.0-2.7) L White Blood Count 11.5 K/UL (4.8-10.8) H Red Blood Count 2.94 M/UL (4.70-6.10) L Hemoglobin 9.1 G/DL (14.2-18.0) L Hematocrit 27.5 % (42.0-52.0) L Mean Corpuscular Volume 93 FL (80-99) Mean Corpuscular Hemoglobin 30.8 PG (27.0-31.0) Mean Corpuscular Hemoglobin Concent 33.0 G/DL (32.0-36.0) Red Cell Distribution Width 15.6 % (11.6-14.8) H Platelet Count 417 K/UL (150-450) Mean Platelet Volume 8.0 FL (6.5-10.1) Neutrophils (%) (Auto) 74.3 % (45.0-75.0) Lymphocytes (%) (Auto) 8.3 % (20.0-45.0) L Monocytes (%) (Auto) 12.4 % (1.0-10.0) H Eosinophils (%) (Auto) 3.5 % (0.0-3.0) H Basophils (%) (Auto) 1.5 % (0.0-2.0) Intake and Output 10/08/18 10/09/18 19:00 07:00 Intake Total 741 ml 530 ml Output Total 1775 ml 1030 ml Balance -1034 ml -500 ml Intake Free Water 50 ml 50 ml IV Total 111 ml Tube Feeding 480 ml 480 ml Other 100 ml Output Urine Total 1775 ml 1030 ml Objective General Appearance: WD/WN, no apparent distress, alert EENT: PERRL/EOMI, normal ENT inspection, TMs normal Neck: non-tender, normal alignment, supple, normal inspection Cardiovascular: Tachy; irreg/irreg; normal peripheral pulses, normal rate, no gallop/murmur, no JVD Respiratory/Chest: nasal canula; chest wall non-tender, lungs clear, coarse upper breath sounds, no respiratory distress, no accessory muscle use Abdomen: normal bowel sounds, non tender, soft, no organomegaly, no mass Extremities: normal range of motion, non-tender Neurologic: merchandise pickup/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 Atrial fibrillation with rapid ventricular rate 6. Respiratory failure/ARDS 7. Urinary tract infection=M 8. Morganella morganii 9. C.Diff diarrhea Assessment/Plan fernandez cultures iv abx banana bag Librium, Seroquel and Klonipin iv abx, ID evaluation Metoprolol drip per Cardiology SEDRICK status Continue nasal canula per pulmonary Abx=Cefepime and oral Sanford Pressley MD Oct 09, 2018 19:02
--- NOTE | 2018-10-09 19:30 | NUR ---
NURSE NOTES: Received report from [facility]. Pt is awake and resting in bed. IV PICC line intact and patent. Bed in lowest position, call light within reach. Will Continue plan of care.
--- NOTE | 2018-10-09 19:50 | NUR ---
HAND-OFF: Report given to [facility] Wang at bedside patient awake not talking,on bilateral wrist restraints try pull device, repositioned, valle intact.
[2018-10-09] MEDS ORDERED: Amiodarone 200mg tab ORAL SCH (20:00)
--- NOTE | 2018-10-09 20:12 | NUR ---
NURSE NOTES: Per Dr. Macias, ok to hold Amiodarone 200mg dose for 2000 d/t pt being on NPO.
[2018-10-09] MEDS: Dyna-Hex 2% Top Sol 2oz TOPIC SCH (20:45)
--- NOTE | 2018-10-09 21:05 | Cardiology Progress Note ---
Assessment/Plan Assessment/Plan tachy ? MAT vs sinus svt hypotension septic shock ards alcohol with drawl syndrome ams etoh intoxication respiratory failure thrombocytopenia tele beter intubated on bryant vent cxr looks ok echo normal lv systolic function po amio iv abx torp neg d/w turning sander tender reviewed i npo ok to hold amio today Subjective ROS Limited/Unobtainable: Yes Subjective extubated awake some response Objective Last 24 Hour Vital Signs Date Time Temp Pulse Resp B/P (MAP) Pulse Ox O2 Delivery O2 Flow Rate FiO2 10/09/18 16:30 98.2 86 19 106/59 (75) 92 10/09/18 16:30 Nasal Cannula 4.0 Nasal Cannula 4.0 10/09/18 16:00 Nasal Cannula 4.0 Nasal Cannula 4.0 10/09/18 16:00 89 10/09/18 16:00 89 21 101/51 (68) 98 10/09/18 15:00 88 19 101/51 (68) 98 10/09/18 14:00 90 21 97/58 (71) 98 10/09/18 14:00 90 21 97/56 (70) 98 10/09/18 13:00 86 22 110/66 (81) 97 10/09/18 12:00 87 10/09/18 12:00 99.1 84 19 95/54 (68) 98 10/09/18 12:00 Nasal Cannula 4.0 Nasal Cannula 4.0 10/09/18 11:00 94 25 122/69 (86) 92 10/09/18 10:00 89 21 85/48 (60) 96 10/09/18 09:30 Nasal Cannula 4.0 Nasal Cannula 4.0 10/09/18 09:00 Venturi Mask 12.0 40 10/09/18 09:00 98 Venturi Mask 12.0 40 10/09/18 09:00 84 25 106/57 (73) 97 10/09/18 08:00 Venturi Mask Venturi Mask 10/09/18 08:00 87 10/09/18 08:00 99.6 88 23 114/52 (72) 97 10/09/18 07:00 86 26 102/56 (71) 95 10/09/18 06:00 90 27 99/58 (72) 94 10/09/18 05:00 88 27 123/68 (86) 94 10/09/18 04:00 89 10/09/18 04:00 98.7 89 26 112/62 (79) 94 10/09/18 04:00 Venturi Mask Venturi Mask 10/09/18 03:00 94 26 122/65 (84) 94 10/09/18 02:00 103 23 121/61 (81) 95 10/09/18 01:19 96 Venturi Mask 12.0 40 10/09/18 01:19 Venturi Mask 12.0 40 10/09/18 01:00 96 23 120/67 (84) 93 10/09/18 00:00 98.9 88 21 103/62 (76) 92 10/09/18 00:00 Venturi Mask Venturi Mask 10/09/18 00:00 91 10/08/18 23:00 86 24 99/54 (69) 93 10/08/18 22:00 87 23 101/54 (70) 94 General Appearance: no apparent distress, alert, patient on isolation Extremities: no swelling Intake and Output 10/08/18 10/09/18 19:00 07:00 Intake Total 741 ml 530 ml Output Total 1775 ml 1030 ml Balance -1034 ml -500 ml Intake Free Water 50 ml 50 ml IV Total 111 ml Tube Feeding 480 ml 480 ml Other 100 ml Output Urine Total 1775 ml 1030 ml Laboratory Tests Test 10/09/18 04:00 10/09/18 05:00 Sodium Level 141 MMOL/L (136-145) Potassium Level 3.9 MMOL/L (3.5-5.1) Chloride Level 105 MMOL/L (98-107) Carbon Dioxide Level 30 MMOL/L (21-32) Anion Gap 6 mmol/L (5-15) Blood Urea Nitrogen 15 mg/dL (7-18) Creatinine 1.0 MG/DL (0.55-1.30) Estimat Glomerular Filtration Rate > 60 mL/min (>60) Glucose Level 90 MG/DL (74-106) Calcium Level 8.1 MG/DL (8.5-10.1) L Total Bilirubin 0.5 MG/DL (0.2-1.0) Aspartate Amino Transf (AST/SGOT) 24 U/L (15-37) Alanine Aminotransferase (ALT/SGPT) 14 U/L (12-78) Alkaline Phosphatase 91 U/L (46-116) Pro-B-Type Natriuretic Peptide 2482 pg/mL (0-125) H Total Protein 6.0 G/DL (6.4-8.2) L Albumin 1.8 G/DL (3.4-5.0) L Globulin 4.2 g/dL Albumin/Globulin Ratio 0.4 (1.0-2.7) L White Blood Count 11.5 K/UL (4.8-10.8) H Red Blood Count 2.94 M/UL (4.70-6.10) L Hemoglobin 9.1 G/DL (14.2-18.0) L Hematocrit 27.5 % (42.0-52.0) L Mean Corpuscular Volume 93 FL (80-99) Mean Corpuscular Hemoglobin 30.8 PG (27.0-31.0) Mean Corpuscular Hemoglobin Concent 33.0 G/DL (32.0-36.0) Red Cell Distribution Width 15.6 % (11.6-14.8) H Platelet Count 417 K/UL (150-450) Mean Platelet Volume 8.0 FL (6.5-10.1) Neutrophils (%) (Auto) 74.3 % (45.0-75.0) Lymphocytes (%) (Auto) 8.3 % (20.0-45.0) L Monocytes (%) (Auto) 12.4 % (1.0-10.0) H Eosinophils (%) (Auto) 3.5 % (0.0-3.0) H Basophils (%) (Auto) 1.5 % (0.0-2.0) Mumtaz Leon MD Oct 09, 2018 21:05
[2018-10-10] VITALS: BP 112/60
[2018-10-10 04:00] VITALS: BP 116/69
[2018-10-10 06:43] LABS: BASOPHILS % (AUTO) 2.8 % (0.0-2.0); EOSINOPHILS % (AUTO) 4.5 % (0.0-3.0); HEMOGLOBIN 9.3 G/DL (14.2-18.0); LYMPHOCYTES % (AUTO) 8.6 % (20.0-45.0); MEAN CORPUSCULAR VOLUME 92 FL (80-99); NEUTROPHILS % (AUTO) 70.1 % (45.0-75.0); PLATELET COUNT 480 K/UL (150-450); RED BLOOD COUNT 3.03 M/UL (4.70-6.10); RED CELL DISTRIBUTION WIDTH 15.2 % (11.6-14.8); WHITE BLOOD COUNT 10.6 K/UL (4.8-10.8)
[2018-10-10 07:01] LABS: ALANINE AMINOTRANSFERASE 12 U/L (12-78); ALBUMIN 1.8 G/DL (3.4-5.0); ALBUMIN/GLOBULIN RATIO 0.4 (1.0-2.7); ALKALINE PHOSPHATASE 82 U/L (46-116); ANION GAP 8 mmol/L (5-15); ASPARTATE AMINO TRANSFERASE 17 U/L (15-37); BILIRUBIN,TOTAL 0.6 MG/DL (0.2-1.0); BLOOD UREA NITROGEN 14 mg/dL (7-18); CALCIUM 8.4 MG/DL (8.5-10.1); CARBON DIOXIDE 30 MMOL/L (21-32); CHLORIDE 103 MMOL/L (98-107); POTASSIUM 3.8 MMOL/L (3.5-5.1); SODIUM 141 MMOL/L (136-145)
--- NOTE | 2018-10-10 07:34 | NUR ---
HAND-OFF: Report given to [facility] Andrews.
--- NOTE | 2018-10-10 07:34 | Infectious Diseases Prog Note ---
Assessment/Plan Assessment/Plan Sepsis/Septic shock- now off pressors -10/03 Bcx NTD -09/26 Bcx Neg Probable UTI,sp Rx -u/a wbc 15-20, nit neg, leuk +3; ucx Morganella morganni (R ancef, amp; otherwise S) Fever- probable multifactorial 2ry to alcohol withdrawal, UTI; improving Leukocytosis, SP -Cdiff + Etoh intoxication- now ETOH withdrawal w/ DT Acute respiratory failure/ ARDS s/p intubation -CXR Extensive airspace disease again demonstrated without change. Thrombocytopenia- probably in the setting of sepsis and bone marrow suppression 2ry to EtOH Afib w/ RVR KARLA, improving EtOH abuse, nephrolithiasis Plan: - Cont PO Vancomycin #/ for Cdiff colitis -10/07/18 SP Cefepime #8 -09/29 SP Ceftriaxone #4 -09/26 SP Zosyn x1 -f.u cx -Monitor CBC/CMP, temperatures -aspiration precautions -ETT/ICU care Will continue to follow along with you. Subjective Allergies: Coded Allergies: No Known Allergies (Unverified , 09/06/15) Subjective Afebrile Leukocytosis resolved Missed a few dose of PO Vanco yesterday Objective Vital Signs Last 24 Hour Vital Signs Date Time Temp Pulse Resp B/P (MAP) Pulse Ox O2 Delivery O2 Flow Rate FiO2 10/10/18 04:00 Nasal Cannula 4.0 Nasal Cannula 4.0 10/10/18 04:00 98.1 79 20 116/69 (85) 95 10/10/18 04:00 79 10/10/18 00:00 99.3 84 19 112/60 (77) 95 10/10/18 00:00 Nasal Cannula 4.0 Nasal Cannula 4.0 10/10/18 00:00 84 10/09/18 20:00 99.3 85 19 110/66 (81) 96 10/09/18 20:00 Nasal Cannula 4.0 36 10/09/18 20:00 85 10/09/18 20:00 96 Nasal Cannula 4.0 36 10/09/18 20:00 Nasal Cannula 4.0 Nasal Cannula 4.0 10/09/18 16:30 98.2 86 19 106/59 (75) 92 10/09/18 16:30 Nasal Cannula 4.0 Nasal Cannula 4.0 10/09/18 16:00 Nasal Cannula 4.0 Nasal Cannula 4.0 10/09/18 16:00 89 10/09/18 16:00 89 21 101/51 (68) 98 10/09/18 15:00 88 19 101/51 (68) 98 10/09/18 14:00 90 21 97/58 (71) 98 10/09/18 14:00 90 21 97/56 (70) 98 10/09/18 13:00 86 22 110/66 (81) 97 10/09/18 12:00 87 10/09/18 12:00 99.1 84 19 95/54 (68) 98 10/09/18 12:00 Nasal Cannula 4.0 Nasal Cannula 4.0 10/09/18 11:00 94 25 122/69 (86) 92 10/09/18 10:00 89 21 85/48 (60) 96 10/09/18 09:30 Nasal Cannula 4.0 Nasal Cannula 4.0 10/09/18 09:00 Venturi Mask 12.0 40 10/09/18 09:00 98 Venturi Mask 12.0 40 10/09/18 09:00 84 25 106/57 (73) 97 10/09/18 08:00 Venturi Mask Venturi Mask 10/09/18 08:00 87 10/09/18 08:00 99.6 88 23 114/52 (72) 97 Height (Feet): 5 Height (Inches): 6.00 Weight (Pounds): 142 Objective General: NAD, Satting well HEENT: normocephalic, atraumatic, EOMI Respiratory/Chest: Coarse B/L Cardiovascular/Chest: RRR, S1, S2 Abdomen: Soft, Normal bowel sounds Laboratory Tests Test 10/10/18 06:15 White Blood Count 10.6 K/UL (4.8-10.8) Red Blood Count 3.03 M/UL (4.70-6.10) L Hemoglobin 9.3 G/DL (14.2-18.0) L Hematocrit 28.0 % (42.0-52.0) L Mean Corpuscular Volume 92 FL (80-99) Mean Corpuscular Hemoglobin 30.6 PG (27.0-31.0) Mean Corpuscular Hemoglobin Concent 33.1 G/DL (32.0-36.0) Red Cell Distribution Width 15.2 % (11.6-14.8) H Platelet Count 480 K/UL (150-450) H Mean Platelet Volume 8.8 FL (6.5-10.1) Neutrophils (%) (Auto) 70.1 % (45.0-75.0) Lymphocytes (%) (Auto) 8.6 % (20.0-45.0) L Monocytes (%) (Auto) 14.0 % (1.0-10.0) H Eosinophils (%) (Auto) 4.5 % (0.0-3.0) H Basophils (%) (Auto) 2.8 % (0.0-2.0) H Sodium Level 141 MMOL/L (136-145) Potassium Level 3.8 MMOL/L (3.5-5.1) Chloride Level 103 MMOL/L (98-107) Carbon Dioxide Level 30 MMOL/L (21-32) Anion Gap 8 mmol/L (5-15) Blood Urea Nitrogen 14 mg/dL (7-18) Creatinine 1.0 MG/DL (0.55-1.30) Estimat Glomerular Filtration Rate > 60 mL/min (>60) Glucose Level 89 MG/DL (74-106) Calcium Level 8.4 MG/DL (8.5-10.1) L Total Bilirubin 0.6 MG/DL (0.2-1.0) Aspartate Amino Transf (AST/SGOT) 17 U/L (15-37) Alanine Aminotransferase (ALT/SGPT) 12 U/L (12-78) Alkaline Phosphatase 82 U/L (46-116) Pro-B-Type Natriuretic Peptide 1140 pg/mL (0-125) H Total Protein 6.2 G/DL (6.4-8.2) L Albumin 1.8 G/DL (3.4-5.0) L Globulin 4.4 g/dL Albumin/Globulin Ratio 0.4 (1.0-2.7) L Current Medications Medications (Trade) Dose Ordered Sig/Hoa Route PRN Reason Start Time Stop Time Status Last Admin Dose Admin Acetaminophen (Tylenol) 650 mg Q4H PRN ORAL fever (temp>100.5F) 10/09/18 15:23 11/08/18 15:22 Amiodarone HCl (Cordarone) 200 mg Q24H ORAL 10/09/18 20:00 11/01/18 19:59 Chlordiazepoxide (Librium) 25 mg Q6H PRN NG agitation 10/09/18 15:24 10/16/18 15:23 Chlorhexidine Gluconate (Zainab-Hex 2%) 1 applic DAILY@2000 TOPIC 10/09/18 20:00 11/02/18 19:59 10/09/18 20:45 Dextrose (Dextrose 50%) 25 ml Q30M PRN IV Hypoglycemia 10/09/18 15:30 10/26/18 17:59 Dextrose (Dextrose 50%) 50 ml Q30M PRN IV Hypoglycemia 10/09/18 15:30 10/26/18 17:59 Furosemide (Lasix) 20 mg Q6H PRN IV if hourly urine output < 100 10/09/18 15:24 11/08/18 15:23 Metoprolol Tartrate 5 mg/ Dextrose 60 ml @ 130 mls/hr Q6H PRN IVPB hr greater than 118 10/09/18 18:00 11/08/18 17:59 Ondansetron HCl (Zofran) 4 mg Q6H PRN IVP Nausea & Vomiting 10/09/18 15:24 11/08/18 15:23 Pantoprazole (Protonix) 40 mg EVERY 12 HOURS IVP 10/09/18 21:00 11/07/18 20:59 10/09/18 20:45 Quetiapine Fumarate (SEROquel) 50 mg Q12HR ORAL 10/09/18 21:00 10/27/18 08:59 Thiamine HCl 100 mg/Dextrose 111 ml @ 220 mls/hr Q24H IVPB 10/10/18 11:00 10/28/18 10:59 Vancomycin HCl (Firvanq) 125 mg FOUR TIMES A DAY ORAL 10/09/18 18:00 10/11/18 12:59 Barney Neil MD Oct 10, 2018 07:34
--- NOTE | 2018-10-10 07:35 | NUR ---
NURSE NOTES: Received pt from YING Wang in stable condition with no cardiopulmonary distress noted. Pt is awake in bed watching TB AAOx2 on 4L O2 NC. Pt is currently NPO- no BM noted at this time. No skin alterations noted. Pt has a ROCKY PICC. F/C noted draining yellow urine. SCDs are on. Bed is in lowest position and alarm on, side rails up x 3, call light within reach. Will continue to monitor pt. Addendum: 10/10/18 at 1126 by Juliana Booth RN Late entry: Bilat soft wrist restraints noted. Radial pulses palpable on both extremities, skin is intact.
[2018-10-10 07:54] LABS: PHOSPHORUS 4.9 MG/DL (2.5-4.9)
[2018-10-10 08:00] VITALS: BP 117/74
[2018-10-10] MEDS: Vancomycin oral 125mg/2.5ml ORAL SCH ×4 (08:19→20:24)
--- NOTE | 2018-10-10 08:30 | NUR ---
Spoke to Dr. Neil about NPO diet and pt's scheduled Vanco PO. Dr. Neil wants to hold PO meds until pt is reevaluated today by
[2018-10-10] MEDS: Pantoprazole Inj IVP SCH (09:17)
--- NOTE | 2018-10-10 10:39 | Nephrology Progress Note ---
Assessment/Plan Problem List: (1) ATN (acute tubular necrosis) (2) ARDS (adult respiratory distress syndrome) (3) Acute respiratory failure with hypoxemia Assessment: extubated 10/08 Assessment (1) Acute respiratory failure with hypoxemia-now extubated (2) ARDS (adult respiratory distress syndrome) (3) ATN (acute tubular necrosis)- resolved (4) Delirium tremens (5) Rapid atrial fibrillation Plan stable from renal stand post extubation toilet Librium PRN Keep BP under control Avoid nephrotoxics monitor renal parameters Albumin boluses as needed k and phos and Mag as needed Subjective ROS Limited/Unobtainable: No Constitutional: Reports: malaise Objective Objective Last 24 Hour Vital Signs Date Time Temp Pulse Resp B/P (MAP) Pulse Ox O2 Delivery O2 Flow Rate FiO2 10/10/18 08:00 83 10/10/18 08:00 98.1 80 20 117/74 (88) 96 10/10/18 08:00 Nasal Cannula 4.0 Nasal Cannula 4.0 10/10/18 04:00 Nasal Cannula 4.0 Nasal Cannula 4.0 10/10/18 04:00 98.1 79 20 116/69 (85) 95 10/10/18 04:00 79 10/10/18 00:00 99.3 84 19 112/60 (77) 95 10/10/18 00:00 Nasal Cannula 4.0 Nasal Cannula 4.0 10/10/18 00:00 84 10/09/18 20:00 99.3 85 19 110/66 (81) 96 10/09/18 20:00 Nasal Cannula 4.0 36 10/09/18 20:00 85 10/09/18 20:00 96 Nasal Cannula 4.0 36 10/09/18 20:00 Nasal Cannula 4.0 Nasal Cannula 4.0 10/09/18 16:30 98.2 86 19 106/59 (75) 92 10/09/18 16:30 Nasal Cannula 4.0 Nasal Cannula 4.0 10/09/18 16:00 Nasal Cannula 4.0 Nasal Cannula 4.0 10/09/18 16:00 89 10/09/18 16:00 89 21 101/51 (68) 98 10/09/18 15:00 88 19 101/51 (68) 98 10/09/18 14:00 90 21 97/58 (71) 98 10/09/18 14:00 90 21 97/56 (70) 98 10/09/18 13:00 86 22 110/66 (81) 97 10/09/18 12:00 87 10/09/18 12:00 99.1 84 19 95/54 (68) 98 10/09/18 12:00 Nasal Cannula 4.0 Nasal Cannula 4.0 10/09/18 11:00 94 25 122/69 (86) 92 Intake and Output 10/09/18 10/10/18 18:59 06:59 Intake Total 371 ml Output Total 2100 ml 550 ml Balance -1729 ml -550 ml Intake Free Water 60 ml IV Total 111 ml Tube Feeding 200 ml Output Urine Total 2100 ml 550 ml Laboratory Tests 10/10/18 06:15: White Blood Count 10.6, Red Blood Count 3.03L, Hemoglobin 9.3L, Hematocrit 28.0L , Mean Corpuscular Volume 92, Mean Corpuscular Hemoglobin 30.6, Mean Corpuscular Hemoglobin Concent 33.1, Red Cell Distribution Width 15.2H, Platelet Count 480H, Mean Platelet Volume 8.8, Neutrophils (%) (Auto) 70.1, Lymphocytes (%) (Auto) 8.6L, Monocytes (%) (Auto) 14.0H, Eosinophils (%) (Auto) 4.5H, Basophils (%) (Auto) 2.8H, Sodium Level 141, Potassium Level 3.8, Chloride Level 103, Carbon Dioxide Level 30, Anion Gap 8, Blood Urea Nitrogen 14 , Creatinine 1.0, Estimat Glomerular Filtration Rate > 60, Glucose Level 89, Calcium Level 8.4L, Phosphorus Level 4.9, Magnesium Level 1.7L, Total Bilirubin 0.6, Aspartate Amino Transf (AST/SGOT) 17, Alanine Aminotransferase (ALT/SGPT) 12, Alkaline Phosphatase 82, Pro-B-Type Natriuretic Peptide 1140H, Total Protein 6.2L, Albumin 1.8L, Globulin 4.4, Albumin/Globulin Ratio 0.4L Height (Feet): 5 Height (Inches): 6.00 Weight (Pounds): 142 General Appearance: confused Cardiovascular: normal rate Respiratory/Chest: decreased breath sounds Abdomen: distended Objective no other change Kaden Cordova MD Oct 10, 2018 10:39
[2018-10-10] MEDS ORDERED: Thiamine HCl 100 MG in D5W 110 ML IVPB SCH (11:00)
[2018-10-10] MEDS ORDERED: chlordiazePOXIDE 25mg Cap NG SCH (11:00)
--- NOTE | 2018-10-10 11:01 | Diagnostic Imaging Report ---
Indication: Shortness of breath Technique: One view of the chest Comparison: 10/09/2018 Findings: Interim removal of previously demonstrated nasogastric tube. There is extensive bilateral interstitial and airspace disease again demonstrated, appearing unchanged. Impression: Interim nasogastric tube removal. 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
[2018-10-10 12:00] VITALS: BP 104/66
--- NOTE | 2018-10-10 12:27 | NUR ---
RADIOLOGY DEPT., CHEST X-RAY DONE.-P.DYE
--- NOTE | 2018-10-10 12:36 | NUR ---
SPEECH PATHOLOGY RE/EVALUATION S: PATIENT CLEARED FOR ST INTERVENTION BY YING NUNEZ PATIENT WITH SOFT RESTRAINTS, HIGHLY CONFUSED, UNABLE TO FOLLOW SIMPLE DIRECTIONS, DID ANSWER THE QUESTION; WHAT IS YOUR NAME. UNABLE TO COUNT TO 5, FOLLOW ONE/STEP COMMANDS O: BEDSIDE SWALLOW RE/EVALUATION A: PATIENT PRESENTS WITH MODERATE DELAY IN INITIATION OF ORAL PREPARATION, ORAL TRANSIT AND PHARYNGEAL PHASE OF SWALLOW. HE INITIALLY HOLDS THE BOLUS FOR 6-8 SECONDS BEFORE ATTEMPTING TO TRANSFER THE BOLUS POSTERIORLY. CLEAR UPPER AIRWAY SOUNDS PRE AND POST SWALLOW PER CERVICAL AUSCULTATION. CLEAR VOCAL QUALITY COUGH X1 WITH P.O. TRIALS OF PUREE. DECREASED MENTATION, NOT ORIENTED TO PLACE/SITUATION/TIME ALL OF WHICH IMPACTS SWALLOW SAFETY. P: PATIENT APPEARS SAFE TO RETURN TO P.O. WITH MODIFIED TEXTURE DIET, MEALTIME PROTOCOL/ASPIRATION PRECAUTIONS, TOTAL ASSIST W/MEALS CRUSH CRUSHABLE MEDS/PRESENT IN PUREE ST TO FOLLOW FOR DIET TOLERANCE THANK YOU FOR THIS REFERRAL.
--- NOTE | 2018-10-10 13:10 | NUR ---
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 ACUTE ALCOHOLIC INTOXICATION VS: BP 106/59, P 84, T 98.2, RR 20, SpO2 94 on NC 4.0L O2 RBC 3.03, Hgb 9.3, Hct 28.0 IS: LIBRIUM 25mg NG SEROQUEL 50mg CORDARONE 200mg VANCOMYCIN 125mg PROTONIX 40mg IVP ICU STATUS
--- NOTE | 2018-10-10 14:00 | NUR ---
NURSE NOTES: Dr Cordova made aware of Mg level 1.2 today.
--- NOTE | 2018-10-10 14:16 | NUR ---
NURSE NOTES: Left a message with Dr Petty regarding lack of pharmacological VTE and today's PLT level of 480. Awaiting call back. Pt's SCDs are on.
--- NOTE | 2018-10-10 14:45 | NUR ---
P.T Note: P.T evaluation complete and treatment initiated. Please refer to P.T evaluation for current functional status. Pt is alert, oriented to self but not to time and current situation. Pt is highly confused however follows simple commands with constant redirections. Pt is generally weak and deconditioned. Pt constant verbal /manual cues to initiated and complete bed mobility and transfer mobility tasks. Skilled P.T service is warranted to improve his strength, balance and endurance to increase mobility independence and safety. Recommend SNF for further rehab at [place]. Thank you for this referral.
--- NOTE | 2018-10-10 15:18 | NUR ---
*-* INSURANCE *-* UPDATED CLINICALS FAXED TO: FAXED TO THE [facility] FAX NUMBER [facility] [phone] Work Fax
--- NOTE | 2018-10-10 15:57 | Pulmonolgy Critical Care Note ---
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, 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 - Objective Last 24 Hour Vital Signs Date Time Temp Pulse Resp B/P (MAP) Pulse Ox O2 Delivery O2 Flow Rate FiO2 10/10/18 12:00 98.2 88 20 104/66 (79) 94 10/10/18 12:00 81 10/10/18 12:00 Nasal Cannula 4.0 Nasal Cannula 4.0 10/10/18 08:00 83 10/10/18 08:00 98.1 80 20 117/74 (88) 96 10/10/18 08:00 Nasal Cannula 4.0 Nasal Cannula 4.0 10/10/18 04:00 Nasal Cannula 4.0 Nasal Cannula 4.0 10/10/18 04:00 98.1 79 20 116/69 (85) 95 10/10/18 04:00 79 10/10/18 00:00 99.3 84 19 112/60 (77) 95 10/10/18 00:00 Nasal Cannula 4.0 Nasal Cannula 4.0 10/10/18 00:00 84 10/09/18 20:00 99.3 85 19 110/66 (81) 96 10/09/18 20:00 Nasal Cannula 4.0 36 10/09/18 20:00 85 10/09/18 20:00 96 Nasal Cannula 4.0 36 10/09/18 20:00 Nasal Cannula 4.0 Nasal Cannula 4.0 10/09/18 16:30 98.2 86 19 106/59 (75) 92 10/09/18 16:30 Nasal Cannula 4.0 Nasal Cannula 4.0 10/09/18 16:00 Nasal Cannula 4.0 Nasal Cannula 4.0 10/09/18 16:00 89 10/09/18 16:00 89 21 101/51 (68) 98 Status: awake HEENT: atraumatic Heart: HR/BP unstable Abdomen: active bowel sounds Extremities: no C/C/E Critical Care - Subjective ROS Limited/Unobtainable: Yes Condition: critical EKG Rhythm: Sinus Rhythm FI02: 36 Vent Support Breath Rate: 16 Vent Support Mode: CPAP Vent Tidal Volume: 600 Sputum Amount: Scant PEEP: 5.0 PIP: 17 Tube Feeding Amount: 40 I&O: Intake and Output 10/09/18 10/10/18 19:00 07:00 Intake Total 331 ml Output Total 2020 ml 550 ml Balance -1689 ml -550 ml Intake Free Water 60 ml IV Total 111 ml Tube Feeding 160 ml Output Urine Total 2020 ml 550 ml ET-Tube: 7.5 ET Position: 23 Garret Petty MD Oct 10, 2018 15:57
[2018-10-10 16:00] VITALS: BP 104/52
--- NOTE | 2018-10-10 16:30 | NUR ---
NURSE NOTES: Dr Sterling came to see pt and I informed him about lack of pharmacological VTE prophylaxis, PLT count 408, and no BM since 10/05. Dr Sterling states he will put in orders for pt.
[2018-10-10] MEDS ORDERED: NS 275ml ONE (16:41)
[2018-10-10] MEDS ORDERED: Miralax 17gm pkt ORAL PRN (17:00)
[2018-10-10] MEDS ORDERED: chlordiazePOXIDE 25mg Cap ORAL SCH ×2 (17:00→22:00)
--- NOTE | 2018-10-10 17:09 | Internal Med Progress Note ---
Subjective Physician Name Bnejamin Sterling Attending Physician Benjamin Sterling MD Current Medications Medications (Trade) Dose Ordered Sig/Hoa Route PRN Reason Start Time Stop Time Status Last Admin Dose Admin Acetaminophen (Tylenol) 650 mg Q4H PRN ORAL fever (temp>100.5F) 10/09/18 15:23 11/08/18 15:22 Amiodarone HCl (Cordarone) 200 mg Q24H ORAL 10/09/18 20:00 11/01/18 19:59 Chlordiazepoxide (Librium) 25 mg Q8H ORAL 10/10/18 17:00 10/17/18 16:59 Chlorhexidine Gluconate (Zainab-Hex 2%) 1 applic DAILY@1999 TOPIC 10/09/18 20:00 11/02/18 19:59 10/09/18 20:45 Dextrose (Dextrose 50%) 25 ml Q30M PRN IV Hypoglycemia 10/09/18 15:30 10/26/18 17:59 Dextrose (Dextrose 50%) 50 ml Q30M PRN IV Hypoglycemia 10/09/18 15:30 10/26/18 17:59 Metoprolol Tartrate 5 mg/ Dextrose 60 ml @ 130 mls/hr Q6H PRN IVPB hr greater than 118 10/09/18 18:00 11/08/18 17:59 Ondansetron HCl (Zofran) 4 mg Q6H PRN IVP Nausea & Vomiting 10/09/18 15:24 11/08/18 15:23 Pantoprazole (Protonix) 40 mg EVERY 12 HOURS ORAL 10/10/18 21:00 11/09/18 20:59 Quetiapine Fumarate (SEROquel) 50 mg Q12HR ORAL 10/09/18 21:00 10/27/18 08:59 Thiamine HCl (Vitamin B1) 100 mg DAILY ORAL 10/11/18 09:00 11/10/18 08:59 Vancomycin HCl (Firvanq) 125 mg FOUR TIMES A DAY ORAL 10/09/18 18:00 10/17/18 23:59 10/10/18 12:40 Allergies: Coded Allergies: No Known Allergies (Unverified , 09/06/15) Subjective awake,, alert, responsive, NAD, agitate. Objective Last Vital Signs Date Time Temp Pulse Resp B/P (MAP) Pulse Ox O2 Delivery O2 Flow Rate FiO2 10/10/18 16:00 98.2 111 28 104/52 (69) 92 10/10/18 16:00 Nasal Cannula 4.0 Nasal Cannula 4.0 10/09/18 20:00 36 Laboratory Tests Test 10/10/18 06:15 White Blood Count 10.6 K/UL (4.8-10.8) Red Blood Count 3.03 M/UL (4.70-6.10) L Hemoglobin 9.3 G/DL (14.2-18.0) L Hematocrit 28.0 % (42.0-52.0) L Mean Corpuscular Volume 92 FL (80-99) Mean Corpuscular Hemoglobin 30.6 PG (27.0-31.0) Mean Corpuscular Hemoglobin Concent 33.1 G/DL (32.0-36.0) Red Cell Distribution Width 15.2 % (11.6-14.8) H Platelet Count 480 K/UL (150-450) H Mean Platelet Volume 8.8 FL (6.5-10.1) Neutrophils (%) (Auto) 70.1 % (45.0-75.0) Lymphocytes (%) (Auto) 8.6 % (20.0-45.0) L Monocytes (%) (Auto) 14.0 % (1.0-10.0) H Eosinophils (%) (Auto) 4.5 % (0.0-3.0) H Basophils (%) (Auto) 2.8 % (0.0-2.0) H Sodium Level 141 MMOL/L (136-145) Potassium Level 3.8 MMOL/L (3.5-5.1) Chloride Level 103 MMOL/L (98-107) Carbon Dioxide Level 30 MMOL/L (21-32) Anion Gap 8 mmol/L (5-15) Blood Urea Nitrogen 14 mg/dL (7-18) Creatinine 1.0 MG/DL (0.55-1.30) Estimat Glomerular Filtration Rate > 60 mL/min (>60) Glucose Level 89 MG/DL (74-106) Calcium Level 8.4 MG/DL (8.5-10.1) L Phosphorus Level 4.9 MG/DL (2.5-4.9) Magnesium Level 1.7 MG/DL (1.8-2.4) L Total Bilirubin 0.6 MG/DL (0.2-1.0) Aspartate Amino Transf (AST/SGOT) 17 U/L (15-37) Alanine Aminotransferase (ALT/SGPT) 12 U/L (12-78) Alkaline Phosphatase 82 U/L (46-116) Pro-B-Type Natriuretic Peptide 1140 pg/mL (0-125) H Total Protein 6.2 G/DL (6.4-8.2) L Albumin 1.8 G/DL (3.4-5.0) L Globulin 4.4 g/dL Albumin/Globulin Ratio 0.4 (1.0-2.7) L Intake and Output 10/09/18 10/10/18 19:00 07:00 Intake Total 331 ml Output Total 2020 ml 550 ml Balance -1689 ml -550 ml Intake Free Water 60 ml IV Total 111 ml Tube Feeding 160 ml Output Urine Total 2020 ml 550 ml Objective General: No acute distress, awake and alert HEENT: NCAT, sclera anicteric, PERRL, EOMI. Neck: Supple, no significant jugular venous distention, Lungs: Good inspiratory effort, no Wheeze. Heart: Regular rate and rhythm, normal S1/S2, no murmur. Abdomen: soft, nontender, nondistended. Normoactive bowel sounds. / Rectal: Refused and deferred. Extremities: No Cyanosis , clubbing or edema. Neuro: A&O x 3, Able to move all extremities Skin: warm, no rashes or lesions Assessment/Plan Assessment/Plan (1) Severe sepsis (2) Acute alcoholic intoxication (3) Nephrolithiasis (4) Hematuria (5). Atrial fibrillation with rapid ventricular rate converted to NSR, (6). Respiratory failure/ARDS (7). Morganella morganii UTI. (8). C.Diff colitis Assessment/Plan: Monitor cultures Librium, DC SEDRICK status transfer to Medical floor. Abx= oral vanco Miralax PRN Heparin SQ Benjamin Sterling MD Oct 10, 2018 17:09
--- NOTE | 2018-10-10 19:13 | Cardiology Progress Note ---
Assessment/Plan Assessment/Plan tachy ? MAT vs sinus svt hypotension septic shock ards alcohol with drawl syndrome ams etoh intoxication respiratory failure thrombocytopenia tele beter cxr looks ok echo normal lv systolic function iv abx torp neg will dc amiod Subjective ROS Limited/Unobtainable: Yes Subjective extubated awake some response Objective Last 24 Hour Vital Signs Date Time Temp Pulse Resp B/P (MAP) Pulse Ox O2 Delivery O2 Flow Rate FiO2 10/10/18 16:00 98.2 111 28 104/52 (69) 92 10/10/18 16:00 Nasal Cannula 4.0 Nasal Cannula 4.0 10/10/18 16:00 82 10/10/18 12:00 98.2 88 20 104/66 (79) 94 10/10/18 12:00 81 10/10/18 12:00 Nasal Cannula 4.0 Nasal Cannula 4.0 10/10/18 08:00 83 10/10/18 08:00 98.1 80 20 117/74 (88) 96 10/10/18 08:00 Nasal Cannula 4.0 Nasal Cannula 4.0 10/10/18 04:00 Nasal Cannula 4.0 Nasal Cannula 4.0 10/10/18 04:00 98.1 79 20 116/69 (85) 95 10/10/18 04:00 79 10/10/18 00:00 99.3 84 19 112/60 (77) 95 10/10/18 00:00 Nasal Cannula 4.0 Nasal Cannula 4.0 10/10/18 00:00 84 10/09/18 20:00 99.3 85 19 110/66 (81) 96 10/09/18 20:00 Nasal Cannula 4.0 36 10/09/18 20:00 85 10/09/18 20:00 96 Nasal Cannula 4.0 36 10/09/18 20:00 Nasal Cannula 4.0 Nasal Cannula 4.0 General Appearance: no apparent distress, alert Neck: supple Cardiovascular: normal rate, regular rhythm Respiratory/Chest: lungs clear Abdomen: normal bowel sounds, non tender, soft Extremities: no swelling Intake and Output 10/09/18 10/10/18 19:00 07:00 Intake Total 331 ml Output Total 2020 ml 550 ml Balance -1689 ml -550 ml Intake Free Water 60 ml IV Total 111 ml Tube Feeding 160 ml Output Urine Total 2020 ml 550 ml Laboratory Tests Test 10/10/18 06:15 White Blood Count 10.6 K/UL (4.8-10.8) Red Blood Count 3.03 M/UL (4.70-6.10) L Hemoglobin 9.3 G/DL (14.2-18.0) L Hematocrit 28.0 % (42.0-52.0) L Mean Corpuscular Volume 92 FL (80-99) Mean Corpuscular Hemoglobin 30.6 PG (27.0-31.0) Mean Corpuscular Hemoglobin Concent 33.1 G/DL (32.0-36.0) Red Cell Distribution Width 15.2 % (11.6-14.8) H Platelet Count 480 K/UL (150-450) H Mean Platelet Volume 8.8 FL (6.5-10.1) Neutrophils (%) (Auto) 70.1 % (45.0-75.0) Lymphocytes (%) (Auto) 8.6 % (20.0-45.0) L Monocytes (%) (Auto) 14.0 % (1.0-10.0) H Eosinophils (%) (Auto) 4.5 % (0.0-3.0) H Basophils (%) (Auto) 2.8 % (0.0-2.0) H Sodium Level 141 MMOL/L (136-145) Potassium Level 3.8 MMOL/L (3.5-5.1) Chloride Level 103 MMOL/L (98-107) Carbon Dioxide Level 30 MMOL/L (21-32) Anion Gap 8 mmol/L (5-15) Blood Urea Nitrogen 14 mg/dL (7-18) Creatinine 1.0 MG/DL (0.55-1.30) Estimat Glomerular Filtration Rate > 60 mL/min (>60) Glucose Level 89 MG/DL (74-106) Calcium Level 8.4 MG/DL (8.5-10.1) L Phosphorus Level 4.9 MG/DL (2.5-4.9) Magnesium Level 1.7 MG/DL (1.8-2.4) L Total Bilirubin 0.6 MG/DL (0.2-1.0) Aspartate Amino Transf (AST/SGOT) 17 U/L (15-37) Alanine Aminotransferase (ALT/SGPT) 12 U/L (12-78) Alkaline Phosphatase 82 U/L (46-116) Pro-B-Type Natriuretic Peptide 1140 pg/mL (0-125) H Total Protein 6.2 G/DL (6.4-8.2) L Albumin 1.8 G/DL (3.4-5.0) L Globulin 4.4 g/dL Albumin/Globulin Ratio 0.4 (1.0-2.7) L Mumtaz Leon MD Oct 10, 2018 19:13
--- NOTE | 2018-10-10 19:36 | NUR ---
HAND-OFF: Report given to YING Breen. Pt in stable condition.
--- NOTE | 2018-10-10 19:37 | NUR ---
NURSE NOTES: Report received from YING Andrews. Observed pt lying on the bed. A/O x1. SR with case monitor. On NC 4L with no s/s of sob. Condom catheter in place and draining well. IV on L UA PICC, intact and patent. Bed in the lowest position. Side rails up x3. Call light within reach. will continue to monitor.
[2018-10-10 20:00] VITALS: BP 99/58
[2018-10-10] MEDS: Dyna-Hex 2% Top Sol 2oz TOPIC SCH (20:24)
[2018-10-10] MEDS ORDERED: Heparin 5000 units/ml inj SUBQ SCH (21:00)
--- NOTE | 2018-10-10 22:00 | NUR ---
TRANSFER TO FLOOR: Patient transferred to M/S. Report given to YING Singh. Belongings and medications given to the RN. No acute distress noted at this time.
--- NOTE | 2018-10-10 22:00 | NUR ---
NURSE NOTES: Pt received from SEDRICK, report from YING Breen. Pt nonverbal A/O X 2, with SCDs on, O2 4L NC, soft wrist restraints on, condom catheter with yellow urine in bag, Picc line on left upper arm, bed in lowest position, VS 98.1, 85HR, 18rr, 101/58, 96 O2. Will continue to monitor.
[2018-10-11] VITALS: BP 99/59
[2018-10-11] MEDS ORDERED: Metoprolol Tartrate 5 MG in D5W 55 ML IVPB PRN ×2
[2018-10-11] MEDS: chlordiazePOXIDE 25mg Cap ORAL SCH ×3 (01:19→17:11)
[2018-10-11 04:00] VITALS: BP 95/62
--- NOTE | 2018-10-11 07:13 | NUR ---
HAND-OFF: Report given to YING Jackson.
[2018-10-11 08:00] VITALS: BP 108/67
[2018-10-11] MEDS ORDERED: Thiamine 100mg tab ORAL SCH ×2 (09:00)
[2018-10-11] MEDS: Vancomycin oral 125mg/2.5ml ORAL SCH ×4 (09:15→22:46)
[2018-10-11] MEDS: Heparin 5000 units/ml inj SUBQ SCH ×2 (09:24→22:47)
--- NOTE | 2018-10-11 10:00 | NUR ---
NURSE NOTES: PT RESTING IN BED, VSS, IN NO APPARENT DISTRESS AT THIS TIME. BILATERAL SOFT WRIST RESTRAINTS ON. NO SWELLING NOTED. RADIAL PULSES PALPABLE AND SKIN INTACT. BED IN LOWEST POSITION WITH HOB ELEVATED FOR ASPIRATION PRECAUTIONS. BEDSIDE RAILS X2 RAISED AND BED ALARM ON. WILL CONTINUE TO MONITOR.
--- NOTE | 2018-10-11 11:53 | Pulmonology Progress Note ---
Assessment/Plan Problems: (1) C. difficile colitis (2) Acute alcoholic intoxication (3) Hematuria (4) Alcohol withdrawal (5) Delirium tremens (6) ARDS (adult respiratory distress syndrome) Assessment & Plan: resolved Assessment/Plan librium vancomycin po dc planning pt ot dvt prophylaxis. Subjective ROS Limited/Unobtainable: No Constitutional: Reports: no symptoms HEENT: Repors: no symptoms Allergies: Coded Allergies: No Known Allergies (Unverified , 09/06/15) Objective Last 24 Hour Vital Signs Date Time Temp Pulse Resp B/P (MAP) Pulse Ox O2 Delivery O2 Flow Rate FiO2 10/11/18 08:00 98.8 83 20 108/67 (81) 97 10/11/18 08:00 Nasal Cannula 3.0 32 10/11/18 08:00 94 Nasal Cannula 3.0 32 10/11/18 04:00 98.1 80 18 95/62 (73) 95 10/11/18 00:00 98.6 81 18 99/59 (72) 94 10/11/18 00:00 Nasal Cannula 4.0 Nasal Cannula 4.0 10/10/18 20:00 Nasal Cannula 4.0 Nasal Cannula 4.0 10/10/18 20:00 98.2 89 20 99/58 (72) 98 10/10/18 20:00 88 10/10/18 16:00 98.2 111 28 104/52 (69) 92 10/10/18 16:00 Nasal Cannula 4.0 Nasal Cannula 4.0 10/10/18 16:00 82 10/10/18 12:00 98.2 88 20 104/66 (79) 94 10/10/18 12:00 81 10/10/18 12:00 Nasal Cannula 4.0 Nasal Cannula 4.0 Intake and Output 10/10/18 10/11/18 18:59 06:59 Output Total 450 ml 150 ml Balance -450 ml -150 ml Output Urine Total 450 ml 150 ml Objective General Appearance: WD/WN Lines, tubes and drains: peripheral HEENT: normocephalic, anicteric Neck: non-tender, normal alignment Respiratory/Chest: chest wall non-tender, lungs clear Breasts: no masses Cardiovascular/Chest: normal peripheral pulses Abdomen: normal bowel sounds Genitourinary/Rectal: normal genital Current Medications Medications (Trade) Dose Ordered Sig/Hoa Route PRN Reason Start Time Stop Time Status Last Admin Dose Admin Acetaminophen (Tylenol) 650 mg Q4H PRN ORAL fever (temp>100.5F) 10/10/18 23:30 11/08/18 15:22 Chlordiazepoxide (Librium) 25 mg Q8H ORAL 10/11/18 01:00 10/17/18 16:59 10/11/18 09:15 Chlorhexidine Gluconate (Zainab-Hex 2%) 1 applic DAILY@1999 TOPIC 10/11/18 20:00 11/02/18 19:59 Dextrose (Dextrose 50%) 25 ml Q30M PRN IV Hypoglycemia 10/10/18 22:30 10/26/18 17:59 Dextrose (Dextrose 50%) 50 ml Q30M PRN IV Hypoglycemia 10/10/18 22:30 10/26/18 17:59 Heparin Sodium (Porcine) (Heparin 5000 units/ml) 5,000 units EVERY 12 HOURS SUBQ 10/11/18 09:00 11/09/18 20:59 10/11/18 09:24 Quetiapine Fumarate (SEROquel) 50 mg Q12HR ORAL 10/11/18 09:00 10/27/18 08:59 10/11/18 09:15 Vancomycin HCl (Firvanq) 125 mg FOUR TIMES A DAY ORAL 10/11/18 09:00 10/17/18 23:59 10/11/18 09:15 Garret Petty MD Oct 11, 2018 11:53
[2018-10-11 12:00] VITALS: BP 101/56
--- NOTE | 2018-10-11 14:27 | NUR ---
CASE MANAGEMENT: REVIEW 10/11/2018 SI:SEPSIS. T 98.8 HR 83 RR 20 B/P 108/67 SATS 97% ON 3L/NC NO LABS TODAY IS:SEROQUEL PO Q12H VANCO PO QID MED/SURG STATUS PLAN OF CARE: DC PLANNING
--- NOTE | 2018-10-11 14:35 | Nephrology Progress Note ---
Assessment/Plan Problem List: (1) ATN (acute tubular necrosis) (2) ARDS (adult respiratory distress syndrome) (3) Acute respiratory failure with hypoxemia Assessment: extubated 10/08 Assessment (1) Acute respiratory failure with hypoxemia-now extubated (2) ARDS (adult respiratory distress syndrome) (3) ATN (acute tubular necrosis)- resolved (4) Delirium tremens (5) Rapid atrial fibrillation Plan stable from renal stand post extubation toilet Librium PRN Keep BP under control Avoid nephrotoxics monitor renal parameters Albumin boluses as needed k and phos and Mag as needed Subjective ROS Limited/Unobtainable: No Objective Objective Last 24 Hour Vital Signs Date Time Temp Pulse Resp B/P (MAP) Pulse Ox O2 Delivery O2 Flow Rate FiO2 10/11/18 12:00 96.5 89 24 101/56 (71) 92 10/11/18 09:00 Room Air Room Air 10/11/18 08:00 98.8 83 20 108/67 (81) 97 10/11/18 08:00 Nasal Cannula 3.0 32 10/11/18 08:00 94 Nasal Cannula 3.0 32 10/11/18 04:00 98.1 80 18 95/62 (73) 95 10/11/18 00:00 98.6 81 18 99/59 (72) 94 10/11/18 00:00 Nasal Cannula 4.0 Nasal Cannula 4.0 10/10/18 20:00 Nasal Cannula 4.0 Nasal Cannula 4.0 10/10/18 20:00 98.2 89 20 99/58 (72) 98 10/10/18 20:00 88 10/10/18 16:00 98.2 111 28 104/52 (69) 92 10/10/18 16:00 Nasal Cannula 4.0 Nasal Cannula 4.0 10/10/18 16:00 82 Intake and Output 10/10/18 10/11/18 18:59 06:59 Output Total 450 ml 150 ml Balance -450 ml -150 ml Output Urine Total 450 ml 150 ml Height (Feet): 5 Height (Inches): 6.00 Weight (Pounds): 141 General Appearance: no apparent distress Objective no other change Kaden Cordova MD Oct 11, 2018 14:35
--- NOTE | 2018-10-11 14:53 | Infectious Diseases Prog Note ---
Assessment/Plan Assessment/Plan Sepsis/Septic shock- now off pressors -10/03 Bcx NTD -09/26 Bcx Neg Probable UTI,sp Rx -u/a wbc 15-20, nit neg, leuk +3; ucx Morganella morganni (R ancef, amp; otherwise S) Fever- probable multifactorial 2ry to alcohol withdrawal, UTI; improving Leukocytosis, SP -Cdiff + Etoh intoxication- now ETOH withdrawal w/ DT Acute respiratory failure/ ARDS s/p intubation -CXR Extensive airspace disease again demonstrated without change. Thrombocytopenia- probably in the setting of sepsis and bone marrow suppression 2ry to EtOH Afib w/ RVR KARLA, improving EtOH abuse, nephrolithiasis Plan: - Cont PO Vancomycin #02/18 for Cdiff colitis -10/07/18 SP Cefepime #8 -09/29 SP Ceftriaxone # -09/26 SP Zosyn x1 -f.u cx -Monitor CBC/CMP, temperatures -aspiration precautions -ETT/ICU care Will continue to follow along with you. Subjective Allergies: Coded Allergies: No Known Allergies (Unverified , 09/06/15) Subjective ; afebrile no leukocytosis Objective Vital Signs Last 24 Hour Vital Signs Date Time Temp Pulse Resp B/P (MAP) Pulse Ox O2 Delivery O2 Flow Rate FiO2 10/11/18 12:00 96.5 89 24 101/56 (71) 92 10/11/18 09:00 Room Air Room Air 10/11/18 08:00 98.8 83 20 108/67 (81) 97 10/11/18 08:00 Nasal Cannula 3.0 32 10/11/18 08:00 94 Nasal Cannula 3.0 32 10/11/18 04:00 98.1 80 18 95/62 (73) 95 10/11/18 00:00 98.6 81 18 99/59 (72) 94 10/11/18 00:00 Nasal Cannula 4.0 Nasal Cannula 4.0 10/10/18 20:00 Nasal Cannula 4.0 Nasal Cannula 4.0 10/10/18 20:00 98.2 89 20 99/58 (72) 98 10/10/18 20:00 88 10/10/18 16:00 98.2 111 28 104/52 (69) 92 10/10/18 16:00 Nasal Cannula 4.0 Nasal Cannula 4.0 10/10/18 16:00 82 Height (Feet): 5 Height (Inches): 6.00 Weight (Pounds): 141 Objective General Appearance: WD/WN, confused Lines, tubes and drains: peripheral HEENT: normocephalic, atraumatic Neck: non-tender, supple Respiratory/Chest: chest wall non-tender, lungs clear Cardiovascular/Chest: normal peripheral pulses Abdomen: normal bowel sounds Current Medications Medications (Trade) Dose Ordered Sig/Hoa Route PRN Reason Start Time Stop Time Status Last Admin Dose Admin Acetaminophen (Tylenol) 650 mg Q4H PRN ORAL fever (temp>100.5F) 10/10/18 23:30 11/08/18 15:22 Chlordiazepoxide (Librium) 25 mg Q8H ORAL 10/11/18 01:00 10/17/18 16:59 10/11/18 09:15 Chlorhexidine Gluconate (Zainab-Hex 2%) 1 applic DAILY@2000 TOPIC 10/11/18 20:00 11/02/18 19:59 Heparin Sodium (Porcine) (Heparin 5000 units/ml) 5,000 units EVERY 12 HOURS SUBQ 10/11/18 09:00 11/09/18 20:59 10/11/18 09:24 Quetiapine Fumarate (SEROquel) 50 mg Q12HR ORAL 10/11/18 09:00 10/27/18 08:59 10/11/18 09:15 Vancomycin HCl (Firvanq) 125 mg FOUR TIMES A DAY ORAL 10/11/18 09:00 10/17/18 23:59 10/11/18 13:24 Jes Taylor M.D. Oct 11, 2018 14:53
[2018-10-11 16:00] VITALS: BP 112/65
[2018-10-11] MEDS ORDERED: Miralax 17gm pkt ORAL PRN (17:00)
--- NOTE | 2018-10-11 17:50 | Internal Med Progress Note ---
Subjective Date of Service: Oct 11, 2018 Physician Name Sanford Castellano Attending Physician Benjamin Sterling MD Current Medications Medications (Trade) Dose Ordered Sig/Hoa Route PRN Reason Start Time Stop Time Status Last Admin Dose Admin Acetaminophen (Tylenol) 650 mg Q4H PRN ORAL fever (temp>100.5F) 10/10/18 23:30 11/08/18 15:22 Chlordiazepoxide (Librium) 25 mg Q8H ORAL 10/11/18 01:00 10/17/18 16:59 10/11/18 17:11 Chlorhexidine Gluconate (Zainab-Hex 2%) 1 applic DAILY@1999 TOPIC 10/11/18 20:00 11/02/18 19:59 Heparin Sodium (Porcine) (Heparin 5000 units/ml) 5,000 units EVERY 12 HOURS SUBQ 10/11/18 09:00 11/09/18 20:59 10/11/18 09:24 Quetiapine Fumarate (SEROquel) 50 mg Q12HR ORAL 10/11/18 09:00 10/27/18 08:59 10/11/18 09:15 Vancomycin HCl (Firvanq) 125 mg FOUR TIMES A DAY ORAL 10/11/18 09:00 10/17/18 23:59 10/11/18 17:11 Allergies: Coded Allergies: No Known Allergies (Unverified , 09/06/15) ROS Limited/Unobtainable: Yes Subjective 68 YO M admitted with hematuria and hypotension. Now atrial fibrillation with rapid ventricular rate. Cover for Int Med-Dr Sterling. Extubated 10/08/18; tolerating nasal canula Objective Last Vital Signs Date Time Temp Pulse Resp B/P (MAP) Pulse Ox O2 Delivery O2 Flow Rate FiO2 10/11/18 16:00 98.6 85 20 112/65 (81) 97 10/11/18 09:00 Room Air Room Air 10/11/18 08:00 3.0 32 Intake and Output 10/10/18 10/11/18 19:00 07:00 Output Total 450 ml 150 ml Balance -450 ml -150 ml Output Urine Total 450 ml 150 ml Objective General Appearance: WD/WN, no apparent distress, alert EENT: PERRL/EOMI, normal ENT inspection, TMs normal Neck: non-tender, normal alignment, supple, normal inspection Cardiovascular: Tachy; irreg/irreg; normal peripheral pulses, normal rate, no gallop/murmur, no JVD Respiratory/Chest: nasal canula; chest wall non-tender, lungs clear, coarse upper breath sounds, no respiratory distress, no accessory muscle use Abdomen: normal bowel sounds, non tender, soft, no organomegaly, no mass Extremities: normal range of motion, non-tender 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 Atrial fibrillation with rapid ventricular rate 6. Respiratory failure/ARDS 7. Urinary tract infection=M 8. Morganella morganii 9. C.Diff diarrhea Assessment/Plan fernandez cultures iv abx banana bag Librium, Seroquel and Klonipin iv abx, ID evaluation Metoprolol drip per Cardiology SEDRICK status Continue nasal canula per pulmonary Abx=Cefepime and oral Sanford Pressley MD Oct 11, 2018 17:50
--- NOTE | 2018-10-11 19:18 | NUR ---
HAND-OFF: Report given to Umberto KAUR RN.
--- NOTE | 2018-10-11 19:19 | NUR ---
NURSE NOTES: Pt received asleep, bed in lowest position, nasal cannuli on, condom catheter on draining yellow urine, no signs of pain or distress, will continue to monitor.
[2018-10-11 20:00] VITALS: BP 109/65
[2018-10-11] MEDS: Dyna-Hex 2% Top Sol 2oz TOPIC SCH (22:45)
[2018-10-12] VITALS: BP 104/56
[2018-10-12] MEDS: chlordiazePOXIDE 25mg Cap ORAL SCH ×3 (01:27→17:11)
[2018-10-12 04:00] VITALS: BP 97/54
--- NOTE | 2018-10-12 07:13 | NUR ---
HAND-OFF: Report given to YING Jackson.
[2018-10-12 07:34] LABS: EOSINOPHILS % (AUTO) 7.7 % (0.0-3.0); HEMATOCRIT 28.7 % (42.0-52.0); HEMOGLOBIN 9.3 G/DL (14.2-18.0); LYMPHOCYTES % (AUTO) 12.4 % (20.0-45.0); MEAN CORPUSCULAR VOLUME 91 FL (80-99); MONOCYTES % (AUTO) 9.7 % (1.0-10.0); NEUTROPHILS % (AUTO) 67.3 % (45.0-75.0); PLATELET COUNT 450 K/UL (150-450); RED BLOOD COUNT 3.14 M/UL (4.70-6.10); WHITE BLOOD COUNT 10.9 K/UL (4.8-10.8)
[2018-10-12 07:35] LABS: ANION GAP 7 mmol/L (5-15); BLOOD UREA NITROGEN 16 mg/dL (7-18); CALCIUM 8.3 MG/DL (8.5-10.1); CARBON DIOXIDE 29 MMOL/L (21-32); CHLORIDE 107 MMOL/L (98-107); CREATININE 1.3 MG/DL (0.55-1.30); SODIUM 142 MMOL/L (136-145)
--- NOTE | 2018-10-12 07:36 | NUR ---
NURSE NOTES: PT AXOX1, CALM, RESTING IN BED. MIGUE SOFT WRIST RESTRAINTS ON PT. NO SWELLING OR SKIN ISSUES NOTED. BILATERAL RADIAL PULSES PALPABLE. NO S/S PAIN. BED IN LOWEST POSITION WITH BEDSIDE RAILS X2 RAISED. BED ALARM ON. HOB ELEVATED FOR ASPIRATION PRECAUTIONS. WILL CONTINUE TO MONITOR.
[2018-10-12 08:00] VITALS: BP 99/61
[2018-10-12] MEDS: Heparin 5000 units/ml inj SUBQ SCH ×2 (08:13→21:13)
[2018-10-12] MEDS: Vancomycin oral 125mg/2.5ml ORAL SCH ×4 (09:30→21:10)
[2018-10-12 12:00] VITALS: BP 98/58
--- NOTE | 2018-10-12 12:34 | NUR ---
NURSE NOTES: RN AND TOOTH CUTTER CONTACT WHEEL TOOK OUT RESTRAINTS FOR TOILETING AND BED BATH. PT AGITATED AND ATTEMPTED TO GET OUT OF BED. BEDSIDE CARE DONE AND PT BACK ON BILATERAL SOFT WRIST RESTRAINTS. RN ATTEMPTED REALITY ORIENTATION AND RE-DIRECTION, WHICH WAS UNSUCCESSFUL. PT NOW RESTING IN BED. CALM AND IN NO APPARENT DISTRESS AT THIS TIME. NO S/S PAIN. WILL CONTINUE TO MONITOR.
--- NOTE | 2018-10-12 12:53 | NUR ---
CASE MANAGEMENT: REVIEW SI: SEPSIS . ETOH WITHDRAWAL W/ DT T 98.8 HR 83 RR 17 BP 98/58 SAT 97% ROOM AIR WBC 10.9 H/H 9.3/28.7 IS: VANCO HCl PO QID LIBRIUM PO Q8HR TYLENOL PO PRN MED/SURG STATUS DCP: PATIENT IS FROM HOME
--- NOTE | 2018-10-12 13:04 | Pulmonology Progress Note ---
Assessment/Plan Problems: (1) C. difficile colitis (2) Acute alcoholic intoxication (3) Hematuria (4) Alcohol withdrawal (5) Delirium tremens (6) ARDS (adult respiratory distress syndrome) Assessment & Plan: resolved Assessment/Plan librium vancomycin po dc planning pt ot dvt prophylaxis. Subjective ROS Limited/Unobtainable: No Constitutional: Reports: no symptoms HEENT: Repors: no symptoms Respiratory: Reports: no symptoms Allergies: Coded Allergies: No Known Allergies (Unverified , 09/06/15) Objective Last 24 Hour Vital Signs Date Time Temp Pulse Resp B/P (MAP) Pulse Ox O2 Delivery O2 Flow Rate FiO2 10/12/18 12:00 98.8 83 17 98/58 (71) 100 10/12/18 09:00 Room Air Room Air 10/12/18 08:00 98.0 82 18 99/61 (74) 97 10/12/18 04:00 97.8 86 18 97/54 (68) 96 10/12/18 00:00 98.7 85 20 104/56 (72) 98 10/11/18 21:52 Nasal Cannula 3.0 32 10/11/18 21:52 96 Nasal Cannula 3.0 32 10/11/18 21:00 Room Air Room Air 10/11/18 20:00 99.1 88 20 109/65 (80) 96 10/11/18 16:00 98.6 85 20 112/65 (81) 97 Intake and Output 10/11/18 10/12/18 19:00 07:00 Intake Total 720 ml 120 ml Output Total 600 ml 525 ml Balance 120 ml -405 ml Intake Oral 720 ml 120 ml Output Urine Total 600 ml 525 ml Objective General Appearance: WD/WN Lines, tubes and drains: peripheral HEENT: normocephalic, anicteric Neck: non-tender, normal alignment Respiratory/Chest: chest wall non-tender, lungs clear Breasts: no masses Cardiovascular/Chest: normal peripheral pulses Abdomen: normal bowel sounds Genitourinary/Rectal: normal genital Laboratory Tests 10/12/18 05:55: White Blood Count 10.9H, Red Blood Count 3.14L, Hemoglobin 9.3L, Hematocrit 28.7L, Mean Corpuscular Volume 91, Mean Corpuscular Hemoglobin 29.7, Mean Corpuscular Hemoglobin Concent 32.4, Red Cell Distribution Width 16.0H, Platelet Count 450, Mean Platelet Volume 8.0, Neutrophils (%) (Auto) 67.3, Lymphocytes (%) (Auto) 12.4L, Monocytes (%) (Auto) 9.7, Eosinophils (%) (Auto) 7.7H, Basophils (%) (Auto) 3.0H, Sodium Level 142, Potassium Level 4.0, Chloride Level 107, Carbon Dioxide Level 29, Anion Gap 7, Blood Urea Nitrogen 16 , Creatinine 1.3, Estimat Glomerular Filtration Rate 55.2, Glucose Level 95, Calcium Level 8.3L Current Medications Medications (Trade) Dose Ordered Sig/Hoa Route PRN Reason Start Time Stop Time Status Last Admin Dose Admin Acetaminophen (Tylenol) 650 mg Q4H PRN ORAL fever (temp>100.5F) 10/10/18 23:30 11/08/18 15:22 Chlordiazepoxide (Librium) 25 mg Q8H ORAL 10/11/18 01:00 10/17/18 16:59 10/12/18 08:04 Chlorhexidine Gluconate (Zainab-Hex 2%) 1 applic DAILY@1999 TOPIC 10/11/18 20:00 11/02/18 19:59 10/11/18 22:45 Heparin Sodium (Porcine) (Heparin 5000 units/ml) 5,000 units EVERY 12 HOURS SUBQ 10/11/18 09:00 11/09/18 20:59 10/12/18 08:13 Quetiapine Fumarate (SEROquel) 50 mg Q12HR ORAL 10/11/18 09:00 10/27/18 08:59 10/12/18 08:04 Vancomycin HCl (Firvanq) 125 mg FOUR TIMES A DAY ORAL 10/11/18 09:00 10/17/18 23:59 10/12/18 12:19 Garret Petty MD Oct 12, 2018 13:04
--- NOTE | 2018-10-12 13:04 | NUR ---
CASE MANAGEMENT: DCPNOTE PER MD ORDER PATIENT REFERRED TO [facility] [address] [phone] CM WILL F/U
--- NOTE | 2018-10-12 14:42 | Nephrology Progress Note ---
Assessment/Plan Problem List: (1) ATN (acute tubular necrosis) (2) ARDS (adult respiratory distress syndrome) (3) Acute respiratory failure with hypoxemia Assessment: extubated 10/08 Assessment (1) Acute respiratory failure with hypoxemia-now extubated (2) ARDS (adult respiratory distress syndrome) (3) ATN (acute tubular necrosis)- resolved (4) Delirium tremens (5) Rapid atrial fibrillation Plan stable from renal stand post extubation toilet Librium PRN Keep BP under control Avoid nephrotoxics monitor renal parameters Albumin boluses as needed k and phos and Mag as needed Subjective ROS Limited/Unobtainable: No Objective Objective Last 24 Hour Vital Signs Date Time Temp Pulse Resp B/P (MAP) Pulse Ox O2 Delivery O2 Flow Rate FiO2 10/12/18 12:00 98.8 83 17 98/58 (71) 100 10/12/18 09:00 Room Air Room Air 10/12/18 08:00 98.0 82 18 99/61 (74) 97 10/12/18 04:00 97.8 86 18 97/54 (68) 96 10/12/18 00:00 98.7 85 20 104/56 (72) 98 10/11/18 21:52 Nasal Cannula 3.0 32 10/11/18 21:52 96 Nasal Cannula 3.0 32 10/11/18 21:00 Room Air Room Air 10/11/18 20:00 99.1 88 20 109/65 (80) 96 10/11/18 16:00 98.6 85 20 112/65 (81) 97 Intake and Output 10/11/18 10/12/18 18:59 06:59 Intake Total 720 ml 120 ml Output Total 600 ml 525 ml Balance 120 ml -405 ml Intake Oral 720 ml 120 ml Output Urine Total 600 ml 525 ml Laboratory Tests 10/12/18 05:55: White Blood Count 10.9H, Red Blood Count 3.14L, Hemoglobin 9.3L, Hematocrit 28.7L, Mean Corpuscular Volume 91, Mean Corpuscular Hemoglobin 29.7, Mean Corpuscular Hemoglobin Concent 32.4, Red Cell Distribution Width 16.0H, Platelet Count 450, Mean Platelet Volume 8.0, Neutrophils (%) (Auto) 67.3, Lymphocytes (%) (Auto) 12.4L, Monocytes (%) (Auto) 9.7, Eosinophils (%) (Auto) 7.7H, Basophils (%) (Auto) 3.0H, Sodium Level 142, Potassium Level 4.0, Chloride Level 107, Carbon Dioxide Level 29, Anion Gap 7, Blood Urea Nitrogen 16 , Creatinine 1.3, Estimat Glomerular Filtration Rate 55.2, Glucose Level 95, Calcium Level 8.3L Height (Feet): 5 Height (Inches): 6.00 Weight (Pounds): 146 General Appearance: no apparent distress Cardiovascular: normal rate Respiratory/Chest: decreased breath sounds Abdomen: soft Objective no other change Kaden Cordova MD Oct 12, 2018 14:42
--- NOTE | 2018-10-12 15:19 | Cardiology Progress Note ---
Assessment/Plan Problem List: (1) Atrial tachycardia (2) Alcohol withdrawal (3) Acute respiratory failure with hypoxemia Status: stable, progressing Status Narrative Pt w/ atrial tach in setting of sepsis and poss etoh withdrawal. now w/ stable rhythm - tele dc d amiodarone dc d Assessment/Plan Pt to remain off amiodarone. Normal LV function by ECHO complete iv abx course per ID Subjective ROS Limited/Unobtainable: Yes Subjective Cardiology for Dr. Leon Pt alert, nonverbal. no resp distress Objective Last 24 Hour Vital Signs Date Time Temp Pulse Resp B/P (MAP) Pulse Ox O2 Delivery O2 Flow Rate FiO2 10/12/18 12:00 98.8 83 17 98/58 (71) 100 10/12/18 09:00 Room Air Room Air 10/12/18 08:00 98.0 82 18 99/61 (74) 97 10/12/18 04:00 97.8 86 18 97/54 (68) 96 10/12/18 00:00 98.7 85 20 104/56 (72) 98 10/11/18 21:52 Nasal Cannula 3.0 32 10/11/18 21:52 96 Nasal Cannula 3.0 32 10/11/18 21:00 Room Air Room Air 10/11/18 20:00 99.1 88 20 109/65 (80) 96 10/11/18 16:00 98.6 85 20 112/65 (81) 97 General Appearance: WD/WN, no apparent distress EENT: PERRL/EOMI Neck: supple, no JVD Rhythm: NSR Cardiovascular: normal rate, regular rhythm Respiratory/Chest: other - occ rhonchi Abdomen: non tender, soft Extremities: no swelling Intake and Output 10/11/18 10/12/18 18:59 06:59 Intake Total 720 ml 120 ml Output Total 600 ml 525 ml Balance 120 ml -405 ml Intake Oral 720 ml 120 ml Output Urine Total 600 ml 525 ml Laboratory Tests Test 10/12/18 05:55 White Blood Count 10.9 K/UL (4.8-10.8) H Red Blood Count 3.14 M/UL (4.70-6.10) L Hemoglobin 9.3 G/DL (14.2-18.0) L Hematocrit 28.7 % (42.0-52.0) L Mean Corpuscular Volume 91 FL (80-99) Mean Corpuscular Hemoglobin 29.7 PG (27.0-31.0) Mean Corpuscular Hemoglobin Concent 32.4 G/DL (32.0-36.0) Red Cell Distribution Width 16.0 % (11.6-14.8) H Platelet Count 450 K/UL (150-450) Mean Platelet Volume 8.0 FL (6.5-10.1) Neutrophils (%) (Auto) 67.3 % (45.0-75.0) Lymphocytes (%) (Auto) 12.4 % (20.0-45.0) L Monocytes (%) (Auto) 9.7 % (1.0-10.0) Eosinophils (%) (Auto) 7.7 % (0.0-3.0) H Basophils (%) (Auto) 3.0 % (0.0-2.0) H Sodium Level 142 MMOL/L (136-145) Potassium Level 4.0 MMOL/L (3.5-5.1) Chloride Level 107 MMOL/L (98-107) Carbon Dioxide Level 29 MMOL/L (21-32) Anion Gap 7 mmol/L (5-15) Blood Urea Nitrogen 16 mg/dL (7-18) Creatinine 1.3 MG/DL (0.55-1.30) Estimat Glomerular Filtration Rate 55.2 mL/min (>60) Glucose Level 95 MG/DL (74-106) Calcium Level 8.3 MG/DL (8.5-10.1) Marie Escobedo MD Oct 12, 2018 15:19
[2018-10-12 16:00] VITALS: BP 109/64
--- NOTE | 2018-10-12 16:17 | Internal Med Progress Note ---
Subjective Date of Service: Oct 12, 2018 Physician Name Sanford Castellano Attending Physician Benjamin Sterling MD Current Medications Medications (Trade) Dose Ordered Sig/Hoa Route PRN Reason Start Time Stop Time Status Last Admin Dose Admin Acetaminophen (Tylenol) 650 mg Q4H PRN ORAL fever (temp>100.5F) 10/10/18 23:30 11/08/18 15:22 Chlordiazepoxide (Librium) 25 mg Q8H ORAL 10/11/18 01:00 10/17/18 16:59 10/12/18 08:04 Chlorhexidine Gluconate (Zainab-Hex 2%) 1 applic DAILY@1999 TOPIC 10/11/18 20:00 11/02/18 19:59 10/11/18 22:45 Heparin Sodium (Porcine) (Heparin 5000 units/ml) 5,000 units EVERY 12 HOURS SUBQ 10/11/18 09:00 11/09/18 20:59 10/12/18 08:13 Quetiapine Fumarate (SEROquel) 50 mg Q12HR ORAL 10/11/18 09:00 10/27/18 08:59 10/12/18 08:04 Vancomycin HCl (Firvanq) 125 mg FOUR TIMES A DAY ORAL 10/11/18 09:00 10/17/18 23:59 10/12/18 12:19 Allergies: Coded Allergies: No Known Allergies (Unverified , 09/06/15) ROS Limited/Unobtainable: Yes Subjective 68 YO M admitted with hematuria and hypotension. Now atrial fibrillation with rapid ventricular rate. Cover for Int Med-Dr Sterling. Extubated 10/08/18; tolerating nasal canula Objective Last Vital Signs Date Time Temp Pulse Resp B/P (MAP) Pulse Ox O2 Delivery O2 Flow Rate FiO2 10/12/18 12:00 98.8 83 17 98/58 (71) 100 10/12/18 09:00 Room Air Room Air 10/11/18 21:52 3.0 32 Laboratory Tests Test 10/12/18 05:55 White Blood Count 10.9 K/UL (4.8-10.8) H Red Blood Count 3.14 M/UL (4.70-6.10) L Hemoglobin 9.3 G/DL (14.2-18.0) L Hematocrit 28.7 % (42.0-52.0) L Mean Corpuscular Volume 91 FL (80-99) Mean Corpuscular Hemoglobin 29.7 PG (27.0-31.0) Mean Corpuscular Hemoglobin Concent 32.4 G/DL (32.0-36.0) Red Cell Distribution Width 16.0 % (11.6-14.8) H Platelet Count 450 K/UL (150-450) Mean Platelet Volume 8.0 FL (6.5-10.1) Neutrophils (%) (Auto) 67.3 % (45.0-75.0) Lymphocytes (%) (Auto) 12.4 % (20.0-45.0) L Monocytes (%) (Auto) 9.7 % (1.0-10.0) Eosinophils (%) (Auto) 7.7 % (0.0-3.0) H Basophils (%) (Auto) 3.0 % (0.0-2.0) H Sodium Level 142 MMOL/L (136-145) Potassium Level 4.0 MMOL/L (3.5-5.1) Chloride Level 107 MMOL/L (98-107) Carbon Dioxide Level 29 MMOL/L (21-32) Anion Gap 7 mmol/L (5-15) Blood Urea Nitrogen 16 mg/dL (7-18) Creatinine 1.3 MG/DL (0.55-1.30) Estimat Glomerular Filtration Rate 55.2 mL/min (>60) Glucose Level 95 MG/DL (74-106) Calcium Level 8.3 MG/DL (8.5-10.1) L Intake and Output 10/11/18 10/12/18 18:59 06:59 Intake Total 720 ml 120 ml Output Total 600 ml 525 ml Balance 120 ml -405 ml Intake Oral 720 ml 120 ml Output Urine Total 600 ml 525 ml Objective General Appearance: WD/WN, no apparent distress, alert EENT: PERRL/EOMI, normal ENT inspection, TMs normal Neck: non-tender, normal alignment, supple, normal inspection Cardiovascular: Tachy; irreg/irreg; normal peripheral pulses, normal rate, no gallop/murmur, no JVD Respiratory/Chest: nasal canula; chest wall non-tender, lungs clear, coarse upper breath sounds, no respiratory distress, no accessory muscle use Abdomen: normal bowel sounds, non tender, soft, no organomegaly, no mass Extremities: normal range of motion, non-tender 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 Atrial fibrillation with rapid ventricular rate 6. Respiratory failure/ARDS 7. Urinary tract infection=M 8. Morganella morganii 9. C.Diff diarrhea Assessment/Plan fernandez cultures iv abx banana bag Librium, Seroquel and Klonipin iv abx, ID evaluation Metoprolol drip per Cardiology SEDRICK status Continue nasal canula per pulmonary Abx=Cefepime and oral Sanford Pressley MD Oct 12, 2018 16:17
--- NOTE | 2018-10-12 19:07 | NUR ---
HAND-OFF: Report given to Umberto KAUR RN.
--- NOTE | 2018-10-12 19:32 | NUR ---
NURSE NOTES: Pt received awake, with family at bedside, bed in lowest position, condom catheter in place draining yellow urine, PICC line in place, no signs of distress or c/o pain, will continue to monitor.
[2018-10-12 20:00] VITALS: BP 101/58
[2018-10-12] MEDS: Dyna-Hex 2% Top Sol 2oz TOPIC SCH (21:10)
[2018-10-13] VITALS: BP 102/60
--- NOTE | 2018-10-13 | NUR ---
NURSE NOTES: Pt restraints removed, he was not observed pulling at any devices, calm.
[2018-10-13] MEDS: chlordiazePOXIDE 25mg Cap ORAL SCH ×3 (01:15→17:04)
[2018-10-13 04:00] VITALS: BP 91/57
[2018-10-13 05:29] LABS: EOSINOPHILS % (AUTO) 7.6 % (0.0-3.0); HEMATOCRIT 28.6 % (42.0-52.0); HEMOGLOBIN 9.3 G/DL (14.2-18.0); LYMPHOCYTES % (AUTO) 9.1 % (20.0-45.0); MEAN CORPUSCULAR VOLUME 93 FL (80-99); MONOCYTES % (AUTO) 8.5 % (1.0-10.0); NEUTROPHILS % (AUTO) 71.7 % (45.0-75.0); PLATELET COUNT 363 K/UL (150-450); RED BLOOD COUNT 3.09 M/UL (4.70-6.10); RED CELL DISTRIBUTION WIDTH 16.4 % (11.6-14.8); WHITE BLOOD COUNT 12.2 K/UL (4.8-10.8)
[2018-10-13 05:52] LABS: ALANINE AMINOTRANSFERASE 18 U/L (12-78); ALBUMIN 1.9 G/DL (3.4-5.0); ALBUMIN/GLOBULIN RATIO 0.4 (1.0-2.7); ALKALINE PHOSPHATASE 78 U/L (46-116); ANION GAP 8 mmol/L (5-15); ASPARTATE AMINO TRANSFERASE 28 U/L (15-37); BILIRUBIN,TOTAL 0.5 MG/DL (0.2-1.0); BLOOD UREA NITROGEN 16 mg/dL (7-18); CALCIUM 8.5 MG/DL (8.5-10.1); CARBON DIOXIDE 29 MMOL/L (21-32); CHLORIDE 107 MMOL/L (98-107); CREATININE 1.2 MG/DL (0.55-1.30); PHOSPHORUS 5.7 MG/DL (2.5-4.9); POTASSIUM 4.2 MMOL/L (3.5-5.1); SODIUM 144 MMOL/L (136-145)
--- NOTE | 2018-10-13 07:05 | NUR ---
HAND-OFF: Report given to YING Najera.
--- NOTE | 2018-10-13 07:25 | NUR ---
NURSE NOTES: received patient asleep, no sign of distress, PICC line patent,on fall and aspiration observed, bed in lowest position, turn q2h for comfort and goof circulation, condom catheter on draining yellow urine, no signs of pain or distress, will continue to monitor. curt escalante
[2018-10-13 08:00] VITALS: BP 91/60
[2018-10-13] MEDS: Vancomycin oral 125mg/2.5ml ORAL SCH ×4 (08:05→21:27)
[2018-10-13] MEDS: Heparin 5000 units/ml inj SUBQ SCH ×2 (08:07→21:29)
--- NOTE | 2018-10-13 09:11 | Infectious Diseases Prog Note ---
Assessment/Plan Assessment/Plan Sepsis/Septic shock- now off pressors -10/03 Bcx NTD -09/26 Bcx Neg Probable UTI,sp Rx -u/a wbc 15-20, nit neg, leuk +3; ucx Morganella morganni (R ancef, amp; otherwise S) Fever- probable multifactorial 2ry to alcohol withdrawal, UTI; improving Leukocytosis, SP -Cdiff + Etoh intoxication- now ETOH withdrawal w/ DT Acute respiratory failure/ ARDS s/p intubation -CXR Extensive airspace disease again demonstrated without change. Thrombocytopenia- probably in the setting of sepsis and bone marrow suppression 2ry to EtOH Afib w/ RVR KARLA, improving EtOH abuse, nephrolithiasis Plan: - Monitor now leukcoytosi - Cont PO Vancomycin #/ for Cdiff colitis -10/07/18 SP Cefepime #8 -09/29 SP Ceftriaxone #4 -09/26 SP Zosyn x1 -f.u cx -Monitor CBC/CMP, temperatures -aspiration precautions -ETT/ICU care Will continue to follow along with you. Subjective Allergies: Coded Allergies: No Known Allergies (Unverified , 09/06/15) Subjective Afebrile Leukocytosis Mild Objective Vital Signs Last 24 Hour Vital Signs Date Time Temp Pulse Resp B/P (MAP) Pulse Ox O2 Delivery O2 Flow Rate FiO2 10/13/18 08:25 Room Air Room Air 10/13/18 08:00 98.1 79 17 91/60 (70) 98 10/13/18 04:00 98.4 79 18 91/57 (68) 100 10/13/18 00:00 98.3 79 19 102/60 (74) 100 10/12/18 21:00 Room Air Room Air 10/12/18 20:00 96 Nasal Cannula 2.0 28 10/12/18 20:00 Nasal Cannula 2.0 28 10/12/18 20:00 99.5 85 18 101/58 (72) 97 10/12/18 16:00 98.8 84 20 109/64 (79) 95 10/12/18 12:00 98.8 83 17 98/58 (71) 100 Height (Feet): 5 Height (Inches): 6.00 Weight (Pounds): 147 Objective General: NAD, laying in bed HEENT: normocephalic, atraumatic, EOMI Respiratory/Chest: Coarse B/L Cardiovascular/Chest: RRR, S1, S2 Abdomen: Soft, Normal bowel sounds Laboratory Tests Test 10/13/18 04:23 White Blood Count 12.2 K/UL (4.8-10.8) H Red Blood Count 3.09 M/UL (4.70-6.10) L Hemoglobin 9.3 G/DL (14.2-18.0) L Hematocrit 28.6 % (42.0-52.0) L Mean Corpuscular Volume 93 FL (80-99) Mean Corpuscular Hemoglobin 30.3 PG (27.0-31.0) Mean Corpuscular Hemoglobin Concent 32.7 G/DL (32.0-36.0) Red Cell Distribution Width 16.4 % (11.6-14.8) H Platelet Count 363 K/UL (150-450) Mean Platelet Volume 7.9 FL (6.5-10.1) Neutrophils (%) (Auto) 71.7 % (45.0-75.0) Lymphocytes (%) (Auto) 9.1 % (20.0-45.0) L Monocytes (%) (Auto) 8.5 % (1.0-10.0) Eosinophils (%) (Auto) 7.6 % (0.0-3.0) H Basophils (%) (Auto) 3.0 % (0.0-2.0) H Erythrocyte Sedimentation Rate 118 MM/HR (0-20) H Sodium Level 144 MMOL/L (136-145) Potassium Level 4.2 MMOL/L (3.5-5.1) Chloride Level 107 MMOL/L (98-107) Carbon Dioxide Level 29 MMOL/L (21-32) Anion Gap 8 mmol/L (5-15) Blood Urea Nitrogen 16 mg/dL (7-18) Creatinine 1.2 MG/DL (0.55-1.30) Estimat Glomerular Filtration Rate > 60 mL/min (>60) Glucose Level 94 MG/DL (74-106) Calcium Level 8.5 MG/DL (8.5-10.1) Phosphorus Level 5.7 MG/DL (2.5-4.9) H Magnesium Level 1.9 MG/DL (1.8-2.4) Total Bilirubin 0.5 MG/DL (0.2-1.0) Aspartate Amino Transf (AST/SGOT) 28 U/L (15-37) Alanine Aminotransferase (ALT/SGPT) 18 U/L (12-78) Alkaline Phosphatase 78 U/L (46-116) C-Reactive Protein, Quantitative 16.2 mg/dL (0.00-0.90) H Total Protein 6.6 G/DL (6.4-8.2) Albumin 1.9 G/DL (3.4-5.0) L Globulin 4.7 g/dL Albumin/Globulin Ratio 0.4 (1.0-2.7) L Current Medications Medications (Trade) Dose Ordered Sig/Hoa Route PRN Reason Start Time Stop Time Status Last Admin Dose Admin Acetaminophen (Tylenol) 650 mg Q4H PRN ORAL fever (temp>100.5F) 10/10/18 23:30 11/08/18 15:22 Chlordiazepoxide (Librium) 25 mg Q8H ORAL 10/11/18 01:00 10/17/18 16:59 10/13/18 08:06 Chlorhexidine Gluconate (Zainab-Hex 2%) 1 applic DAILY@1999 TOPIC 10/11/18 20:00 11/02/18 19:59 10/12/18 21:10 Heparin Sodium (Porcine) (Heparin 5000 units/ml) 5,000 units EVERY 12 HOURS SUBQ 10/11/18 09:00 11/09/18 20:59 10/13/18 08:07 Quetiapine Fumarate (SEROquel) 50 mg Q12HR ORAL 10/11/18 09:00 10/27/18 08:59 10/13/18 08:06 Vancomycin HCl (Firvanq) 125 mg FOUR TIMES A DAY ORAL 10/11/18 09:00 10/17/18 23:59 10/13/18 08:05 Barney Neil MD Oct 13, 2018 09:11
--- NOTE | 2018-10-13 12:10 | NUR ---
RD ASSESSMENT & RECOMMENDATIONS SEE CARE ACTIVITY FOR COMPLETE ASSESSMENT DAILY ESTIMATED NEEDS: Needs based on cardiac 70kg 25-30 kcals/kg 8505-3772 total kcals 1-1.3 g protein/kg 70-91 g total protein 20-25 mL/kg 7941-7294 total fluid mLs NUTRITION DIAGNOSIS: 1) Swallowing difficulty r/t respiratory status as evidenced by s/p extubation, s/p NGT removal, CONFIGURATION MANAGEMENT ANALYST recommends pureed moist texture, NTL if PO given for quality of life. 2) Altered nutrition related lab values r/t clinical status as evidenced by low pH-> now wnl, elev WBC (22->11.5), elev Na (147- wnl), Low K (3.3-> wnl), low Mg (1.7), elev BG (216-> wnl), elev phos (5.7), elev BNP (1636->1140), and elev serum alcohol on adm. CURRENT DIET: Regular puree/ NTL PO DIET RECOMMENDATIONS: Liberalized Regular/ texture per CONFIGURATION MANAGEMENT ANALYST ADDITIONAL RECOMMENDATIONS: 1) Calibrated bedscale wts. 2) Continue w/ thiamine, add MVI- h/o ETOH abuse 3) Monitor lytes, replete as needed 4) Monitor PO intake and tolerance closely- s/p extubation on 10/08 5) Add Ensure x1 daily + snacks
[2018-10-13 12:11] VITALS: BP 97/59
--- NOTE | 2018-10-13 13:14 | NUR ---
ST NOTE: SWALLOW STATUS FOLLOWED UP PT'S CONDITIONS. PT SEEN AT BEDSIDE PM, SLEEPY. PER NURSING STAFF, PT IS HAVING DIARRHEA, TOLERATED PUREE WITH NECTAR THICK LIQUIDS WITHOUT OVERT S/S OF ASPIRATION. HOWEVER, STILL SEEMS CONFUSED. FOR QUALITY OF LIFE, CONTINUE CURRENT DIET WITH STRICT ASPIRATION PRECAUTIONS WITH 1TO1 FEEDING. D/W THE STAFF.
--- NOTE | 2018-10-13 13:19 | Pulmonology Progress Note ---
Assessment/Plan Problems: (1) C. difficile colitis (2) Acute alcoholic intoxication (3) Hematuria (4) Alcohol withdrawal (5) Delirium tremens (6) ARDS (adult respiratory distress syndrome) Assessment & Plan: resolved Assessment/Plan librium vancomycin po dc planning pt ot dvt prophylaxis. Subjective ROS Limited/Unobtainable: No Constitutional: Reports: no symptoms Allergies: Coded Allergies: No Known Allergies (Unverified , 09/06/15) Objective Last 24 Hour Vital Signs Date Time Temp Pulse Resp B/P (MAP) Pulse Ox O2 Delivery O2 Flow Rate FiO2 10/13/18 12:11 98.3 81 18 97/59 (72) 98 10/13/18 08:25 Room Air Room Air 10/13/18 08:00 98.1 79 17 91/60 (70) 98 10/13/18 04:00 98.4 79 18 91/57 (68) 100 10/13/18 00:00 98.3 79 19 102/60 (74) 100 10/12/18 21:00 Room Air Room Air 10/12/18 20:00 96 Nasal Cannula 2.0 28 10/12/18 20:00 Nasal Cannula 2.0 28 10/12/18 20:00 99.5 85 18 101/58 (72) 97 10/12/18 16:00 98.8 84 20 109/64 (79) 95 Intake and Output 10/12/18 10/13/18 19:00 07:00 Intake Total 240 ml 120 ml Output Total 475 ml Balance 240 ml -355 ml Intake Oral 240 ml 120 ml Output Urine Total 475 ml Objective General Appearance: WD/WN Lines, tubes and drains: peripheral HEENT: normocephalic, anicteric Neck: non-tender, normal alignment Respiratory/Chest: chest wall non-tender, lungs clear Breasts: no masses Cardiovascular/Chest: normal peripheral pulses Abdomen: normal bowel sounds Genitourinary/Rectal: normal genital Laboratory Tests 10/13/18 04:23: White Blood Count 12.2H, Red Blood Count 3.09L, Hemoglobin 9.3L, Hematocrit 28.6L, Mean Corpuscular Volume 93, Mean Corpuscular Hemoglobin 30.3, Mean Corpuscular Hemoglobin Concent 32.7, Red Cell Distribution Width 16.4H, Platelet Count 363, Mean Platelet Volume 7.9, Neutrophils (%) (Auto) 71.7, Lymphocytes (%) (Auto) 9.1L, Monocytes (%) (Auto) 8.5, Eosinophils (%) (Auto) 7.6H, Basophils (%) (Auto) 3.0H, Erythrocyte Sedimentation Rate 118H, Sodium Level 144, Potassium Level 4.2, Chloride Level 107, Carbon Dioxide Level 29, Anion Gap 8, Blood Urea Nitrogen 16, Creatinine 1.2, Estimat Glomerular Filtration Rate > 60, Glucose Level 94, Calcium Level 8.5, Phosphorus Level 5.7H , Magnesium Level 1.9, Total Bilirubin 0.5, Aspartate Amino Transf (AST/SGOT) 28 , Alanine Aminotransferase (ALT/SGPT) 18, Alkaline Phosphatase 78, C-Reactive Protein, Quantitative 16.2H, Total Protein 6.6, Albumin 1.9L, Globulin 4.7, Albumin/Globulin Ratio 0.4L Current Medications Medications (Trade) Dose Ordered Sig/Hoa Route PRN Reason Start Time Stop Time Status Last Admin Dose Admin Acetaminophen (Tylenol) 650 mg Q4H PRN ORAL fever (temp>100.5F) 10/10/18 23:30 11/08/18 15:22 Chlordiazepoxide (Librium) 25 mg Q8H ORAL 10/11/18 01:00 10/17/18 16:59 10/13/18 08:06 Chlorhexidine Gluconate (Zainab-Hex 2%) 1 applic DAILY@1999 TOPIC 10/11/18 20:00 11/02/18 19:59 10/12/18 21:10 Heparin Sodium (Porcine) (Heparin 5000 units/ml) 5,000 units EVERY 12 HOURS SUBQ 10/11/18 09:00 11/09/18 20:59 10/13/18 08:07 Quetiapine Fumarate (SEROquel) 50 mg Q12HR ORAL 10/11/18 09:00 10/27/18 08:59 10/13/18 08:06 Vancomycin HCl (Firvanq) 125 mg FOUR TIMES A DAY ORAL 10/11/18 09:00 10/17/18 23:59 10/13/18 12:20 Garret Petty MD Oct 13, 2018 13:19
--- NOTE | 2018-10-13 13:44 | NUR ---
BULK CLERKRN CLINICAL REVIEW SI:SEPSIS . ETOH WITHDRAWAL W/ DT VS: BP 97/59, P 81, T 98.3, RR 17, SpO2 98 WBC 12.2, RBC 3.09, Hgb 9.3, Hct 28.6 IS:LIBRIUM 25mg VANCOMYCIN 125mg SEROQUEL 50mg HEPARIN SUBQ MED/SURG STATUS
--- NOTE | 2018-10-13 14:02 | Nephrology Progress Note ---
Assessment/Plan Problem List: (1) ATN (acute tubular necrosis) (2) ARDS (adult respiratory distress syndrome) (3) Acute respiratory failure with hypoxemia Assessment: extubated 10/08 Assessment (1) Acute respiratory failure with hypoxemia-now extubated (2) ARDS (adult respiratory distress syndrome) (3) ATN (acute tubular necrosis)- resolved (4) Delirium tremens (5) Rapid atrial fibrillation Plan start midodrine stable from renal stand post extubation toilet Librium PRN Keep BP under control Avoid nephrotoxics monitor renal parameters Albumin boluses as needed k and phos and Mag as needed Subjective ROS Limited/Unobtainable: No Constitutional: Reports: malaise, weakness Objective Objective Last 24 Hour Vital Signs Date Time Temp Pulse Resp B/P (MAP) Pulse Ox O2 Delivery O2 Flow Rate FiO2 10/13/18 12:11 98.3 81 18 97/59 (72) 98 10/13/18 08:25 Room Air Room Air 10/13/18 08:00 98.1 79 17 91/60 (70) 98 10/13/18 04:00 98.4 79 18 91/57 (68) 100 10/13/18 00:00 98.3 79 19 102/60 (74) 100 10/12/18 21:00 Room Air Room Air 10/12/18 20:00 96 Nasal Cannula 2.0 28 10/12/18 20:00 Nasal Cannula 2.0 28 10/12/18 20:00 99.5 85 18 101/58 (72) 97 10/12/18 16:00 98.8 84 20 109/64 (79) 95 Intake and Output 10/12/18 10/13/18 19:00 07:00 Intake Total 240 ml 120 ml Output Total 475 ml Balance 240 ml -355 ml Intake Oral 240 ml 120 ml Output Urine Total 475 ml Laboratory Tests 10/13/18 04:23: White Blood Count 12.2H, Red Blood Count 3.09L, Hemoglobin 9.3L, Hematocrit 28.6L, Mean Corpuscular Volume 93, Mean Corpuscular Hemoglobin 30.3, Mean Corpuscular Hemoglobin Concent 32.7, Red Cell Distribution Width 16.4H, Platelet Count 363, Mean Platelet Volume 7.9, Neutrophils (%) (Auto) 71.7, Lymphocytes (%) (Auto) 9.1L, Monocytes (%) (Auto) 8.5, Eosinophils (%) (Auto) 7.6H, Basophils (%) (Auto) 3.0H, Erythrocyte Sedimentation Rate 118H, Sodium Level 144, Potassium Level 4.2, Chloride Level 107, Carbon Dioxide Level 29, Anion Gap 8, Blood Urea Nitrogen 16, Creatinine 1.2, Estimat Glomerular Filtration Rate > 60, Glucose Level 94, Calcium Level 8.5, Phosphorus Level 5.7H , Magnesium Level 1.9, Total Bilirubin 0.5, Aspartate Amino Transf (AST/SGOT) 28 , Alanine Aminotransferase (ALT/SGPT) 18, Alkaline Phosphatase 78, C-Reactive Protein, Quantitative 16.2H, Total Protein 6.6, Albumin 1.9L, Globulin 4.7, Albumin/Globulin Ratio 0.4L Height (Feet): 5 Height (Inches): 6.00 Weight (Pounds): 147 General Appearance: no apparent distress Cardiovascular: normal rate Respiratory/Chest: decreased breath sounds Abdomen: distended Objective no other change Kaden Cordova MD Oct 13, 2018 14:02
[2018-10-13 16:00] VITALS: BP 99/61
--- NOTE | 2018-10-13 16:34 | NUR ---
*-* INSURANCE *-* UPDATED CLINICALS FAXED TO: FAXED TO THE [facility] FAX NUMBER [facility] [phone] Work Fax
--- NOTE | 2018-10-13 19:22 | NUR ---
HAND-OFF: Report given to Ms YING Curiel accordingly ying escalante
--- NOTE | 2018-10-13 19:22 | NUR ---
NURSE NOTES: Pt received patient asleep, no sign of distress, PICC line patent,on fall and aspiration precautions with HOB elevated, bed in lowest position, locked and side rails x2, call light within reach. turn q2h for comfort and good circulation, condom catheter in place, draining yellow urine, no signs of pain or distress, will continue to monitor.
[2018-10-13 20:00] VITALS: BP 104/63
--- NOTE | 2018-10-13 20:32 | Internal Med Progress Note ---
Subjective Date of Service: Oct 13, 2018 Physician Name Sanford Castellano Attending Physician Benjamin Sterling MD Current Medications Medications (Trade) Dose Ordered Sig/Hoa Route PRN Reason Start Time Stop Time Status Last Admin Dose Admin Acetaminophen (Tylenol) 650 mg Q4H PRN ORAL fever (temp>100.5F) 10/10/18 23:30 11/08/18 15:22 Chlordiazepoxide (Librium) 25 mg Q8H ORAL 10/11/18 01:00 10/17/18 16:59 10/13/18 17:04 Chlorhexidine Gluconate (Zainab-Hex 2%) 1 applic DAILY@1999 TOPIC 10/11/18 20:00 11/02/18 19:59 10/12/18 21:10 Heparin Sodium (Porcine) (Heparin 5000 units/ml) 5,000 units EVERY 12 HOURS SUBQ 10/11/18 09:00 11/09/18 20:59 10/13/18 08:07 Midodrine (Pro-Amatine) 2.5 mg THREE TIMES A DAY ORAL 10/13/18 18:00 11/12/18 17:59 10/13/18 17:04 Quetiapine Fumarate (SEROquel) 50 mg Q12HR ORAL 10/11/18 09:00 10/27/18 08:59 10/13/18 08:06 Vancomycin HCl (Firvanq) 125 mg FOUR TIMES A DAY ORAL 10/11/18 09:00 10/17/18 23:59 10/13/18 17:04 Allergies: Coded Allergies: No Known Allergies (Unverified , 09/06/15) ROS Limited/Unobtainable: Yes Subjective 68 YO M admitted with hematuria and hypotension. Now atrial fibrillation with rapid ventricular rate. Cover for Int Med-Dr Sterling. Extubated 10/08/18; tolerating nasal canula Objective Last Vital Signs Date Time Temp Pulse Resp B/P (MAP) Pulse Ox O2 Delivery O2 Flow Rate FiO2 10/13/18 16:00 98.0 79 18 99/61 (74) 96 10/13/18 08:25 Room Air Room Air 10/12/18 20:00 2.0 28 Laboratory Tests Test 10/13/18 04:23 White Blood Count 12.2 K/UL (4.8-10.8) H Red Blood Count 3.09 M/UL (4.70-6.10) L Hemoglobin 9.3 G/DL (14.2-18.0) L Hematocrit 28.6 % (42.0-52.0) L Mean Corpuscular Volume 93 FL (80-99) Mean Corpuscular Hemoglobin 30.3 PG (27.0-31.0) Mean Corpuscular Hemoglobin Concent 32.7 G/DL (32.0-36.0) Red Cell Distribution Width 16.4 % (11.6-14.8) H Platelet Count 363 K/UL (150-450) Mean Platelet Volume 7.9 FL (6.5-10.1) Neutrophils (%) (Auto) 71.7 % (45.0-75.0) Lymphocytes (%) (Auto) 9.1 % (20.0-45.0) L Monocytes (%) (Auto) 8.5 % (1.0-10.0) Eosinophils (%) (Auto) 7.6 % (0.0-3.0) H Basophils (%) (Auto) 3.0 % (0.0-2.0) H Erythrocyte Sedimentation Rate 118 MM/HR (0-20) H Sodium Level 144 MMOL/L (136-145) Potassium Level 4.2 MMOL/L (3.5-5.1) Chloride Level 107 MMOL/L (98-107) Carbon Dioxide Level 29 MMOL/L (21-32) Anion Gap 8 mmol/L (5-15) Blood Urea Nitrogen 16 mg/dL (7-18) Creatinine 1.2 MG/DL (0.55-1.30) Estimat Glomerular Filtration Rate > 60 mL/min (>60) Glucose Level 94 MG/DL (74-106) Calcium Level 8.5 MG/DL (8.5-10.1) Phosphorus Level 5.7 MG/DL (2.5-4.9) H Magnesium Level 1.9 MG/DL (1.8-2.4) Total Bilirubin 0.5 MG/DL (0.2-1.0) Aspartate Amino Transf (AST/SGOT) 28 U/L (15-37) Alanine Aminotransferase (ALT/SGPT) 18 U/L (12-78) Alkaline Phosphatase 78 U/L (46-116) C-Reactive Protein, Quantitative 16.2 mg/dL (0.00-0.90) H Total Protein 6.6 G/DL (6.4-8.2) Albumin 1.9 G/DL (3.4-5.0) L Globulin 4.7 g/dL Albumin/Globulin Ratio 0.4 (1.0-2.7) L Intake and Output 10/12/18 10/13/18 18:59 06:59 Intake Total 240 ml 120 ml Output Total 475 ml Balance 240 ml -355 ml Intake Oral 240 ml 120 ml Output Urine Total 475 ml Objective General Appearance: WD/WN, no apparent distress, alert EENT: PERRL/EOMI, normal ENT inspection, TMs normal Neck: non-tender, normal alignment, supple, normal inspection Cardiovascular: Tachy; irreg/irreg; normal peripheral pulses, normal rate, no gallop/murmur, no JVD Respiratory/Chest: nasal canula; chest wall non-tender, lungs clear, coarse upper breath sounds, no respiratory distress, no accessory muscle use Abdomen: normal bowel sounds, non tender, soft, no organomegaly, no mass Extremities: normal range of motion, non-tender Neurologic: measurer II-XII grossly normal, no motor/sensory deficts Assessment/Plan Assessment/Plan Assessment/Plan Assessment/Plan Problem List: (1) Severe sepsis ICD Codes: A41.9 - Sepsis, unspecified organism; R65.20 - Severe sepsis without septic shock SNOMED: 58027607 (2) Acute alcoholic intoxication ICD Codes: F10.129 - Alcohol abuse with intoxication, unspecified SNOMED: 19688360 (3) Nephrolithiasis ICD Codes: N20.0 - Calculus of kidney SNOMED: 00948336 (4) Hematuria ICD Codes: R31.9 - Hematuria, unspecified SNOMED: 09233360 5. Atrial fibrillation with rapid ventricular rate 6. Respiratory failure/ARDS 7. Urinary tract infection=M 8. Morganella morganii 9. C.Diff diarrhea Assessment/Plan fernandez cultures iv abx banana bag Librium, Seroquel and Klonipin iv abx, ID evaluation Metoprolol drip per Cardiology SEDRICK status Continue nasal canula per pulmonary Abx= oral Sanford Pressley MD Oct 13, 2018 20:32
[2018-10-13] MEDS: Dyna-Hex 2% Top Sol 2oz TOPIC SCH (21:26)
[2018-10-14 00:01] VITALS: BP 105/64
[2018-10-14] MEDS: chlordiazePOXIDE 25mg Cap ORAL SCH ×2 (00:18→09:29)
[2018-10-14 04:00] VITALS: BP 99/60
[2018-10-14 05:30] LABS: BASOPHILS % (AUTO) 2.9 % (0.0-2.0); HEMOGLOBIN 9.2 G/DL (14.2-18.0); LYMPHOCYTES % (AUTO) 11.7 % (20.0-45.0); MEAN CORPUSCULAR VOLUME 92 FL (80-99); MONOCYTES % (AUTO) 7.3 % (1.0-10.0); NEUTROPHILS % (AUTO) 69.1 % (45.0-75.0); PLATELET COUNT 399 K/UL (150-450); RED BLOOD COUNT 3.05 M/UL (4.70-6.10); WHITE BLOOD COUNT 10.3 K/UL (4.8-10.8)
[2018-10-14 06:02] LABS: ANION GAP 9 mmol/L (5-15); BLOOD UREA NITROGEN 14 mg/dL (7-18); CALCIUM 8.5 MG/DL (8.5-10.1); CARBON DIOXIDE 28 MMOL/L (21-32); CHLORIDE 106 MMOL/L (98-107); CREATININE 1.2 MG/DL (0.55-1.30); POTASSIUM 3.9 MMOL/L (3.5-5.1); SODIUM 143 MMOL/L (136-145)
--- NOTE | 2018-10-14 07:30 | NUR ---
HAND-OFF: Report given to YING Nelson.
[2018-10-14 08:00] VITALS: BP 95/62
--- NOTE | 2018-10-14 08:23 | Infectious Diseases Prog Note ---
Assessment/Plan Assessment/Plan Sepsis/Septic shock- now off pressors -10/03 Bcx NTD -09/26 Bcx Neg Probable UTI,sp Rx -u/a wbc 15-20, nit neg, leuk +3; ucx Morganella morganni (R ancef, amp; otherwise S) Fever- probable multifactorial 2ry to alcohol withdrawal, UTI; improving Leukocytosis, SP -Cdiff + Etoh intoxication- now ETOH withdrawal w/ DT Acute respiratory failure/ ARDS s/p intubation -CXR Extensive airspace disease again demonstrated without change. Thrombocytopenia- probably in the setting of sepsis and bone marrow suppression 2ry to EtOH Afib w/ RVR KARLA, improving EtOH abuse, nephrolithiasis Plan: - Monitor now leukcoytosi - Cont PO Vancomycin #05/22 for Cdiff colitis -10/07/18 SP Cefepime #8 -09/29 SP Ceftriaxone #4 -09/26 SP Zosyn x1 -f.u cx -Monitor CBC/CMP, temperatures -aspiration precautions -ETT/ICU care Will continue to follow along with you. Subjective Allergies: Coded Allergies: No Known Allergies (Unverified , 09/06/15) Subjective Afebrile Leukocytosis resolved BM x 1 Objective Vital Signs Last 24 Hour Vital Signs Date Time Temp Pulse Resp B/P (MAP) Pulse Ox O2 Delivery O2 Flow Rate FiO2 10/14/18 04:00 98.5 73 17 99/60 (73) 95 10/14/18 00:01 98.8 80 17 105/64 (78) 95 10/13/18 21:00 Room Air Room Air 10/13/18 20:00 98.3 77 18 104/63 (77) 96 10/13/18 18:45 Nasal Cannula 2.0 28 10/13/18 18:45 97 Nasal Cannula 2.0 28 10/13/18 16:00 98.0 79 18 99/61 (74) 96 10/13/18 12:11 98.3 81 18 97/59 (72) 98 10/13/18 08:25 Room Air Room Air Height (Feet): 5 Height (Inches): 6.00 Weight (Pounds): 139 Objective General: NAD HEENT: normocephalic, atraumatic, EOMI Respiratory/Chest: Coarse B/L Cardiovascular/Chest: RRR, S1, S2 Abdomen: Soft, Normal bowel sounds Laboratory Tests Test 4/9/19 04:30 White Blood Count 10.3 K/UL (4.8-10.8) Red Blood Count 3.05 M/UL (4.70-6.10) L Hemoglobin 9.2 G/DL (14.2-18.0) L Hematocrit 28.0 % (42.0-52.0) L Mean Corpuscular Volume 92 FL (80-99) Mean Corpuscular Hemoglobin 30.0 PG (27.0-31.0) Mean Corpuscular Hemoglobin Concent 32.7 G/DL (32.0-36.0) Red Cell Distribution Width 16.0 % (11.6-14.8) H Platelet Count 399 K/UL (150-450) Mean Platelet Volume 7.6 FL (6.5-10.1) Neutrophils (%) (Auto) 69.1 % (45.0-75.0) Lymphocytes (%) (Auto) 11.7 % (20.0-45.0) L Monocytes (%) (Auto) 7.3 % (1.0-10.0) Eosinophils (%) (Auto) 9.0 % (0.0-3.0) H Basophils (%) (Auto) 2.9 % (0.0-2.0) H Sodium Level 143 MMOL/L (136-145) Potassium Level 3.9 MMOL/L (3.5-5.1) Chloride Level 106 MMOL/L (98-107) Carbon Dioxide Level 28 MMOL/L (21-32) Anion Gap 9 mmol/L (5-15) Blood Urea Nitrogen 14 mg/dL (7-18) Creatinine 1.2 MG/DL (0.55-1.30) Estimat Glomerular Filtration Rate > 60 mL/min (>60) Glucose Level 87 MG/DL (74-106) Calcium Level 8.5 MG/DL (8.5-10.1) Current Medications Medications (Trade) Dose Ordered Sig/Hoa Route PRN Reason Start Time Stop Time Status Last Admin Dose Admin Acetaminophen (Tylenol) 650 mg Q4H PRN ORAL fever (temp>100.5F) 10/10/18 23:30 11/08/18 15:22 Chlordiazepoxide (Librium) 25 mg Q8H ORAL 10/11/18 01:00 10/17/18 16:59 10/14/18 00:18 Chlorhexidine Gluconate (Zainab-Hex 2%) 1 applic DAILY@2000 TOPIC 10/11/18 20:00 11/02/18 19:59 10/13/18 21:26 Heparin Sodium (Porcine) (Heparin 5000 units/ml) 5,000 units EVERY 12 HOURS SUBQ 10/11/18 09:00 11/09/18 20:59 10/13/18 21:29 Midodrine (Pro-Amatine) 2.5 mg THREE TIMES A DAY ORAL 10/13/18 18:00 11/12/18 17:59 10/13/18 17:04 Quetiapine Fumarate (SEROquel) 50 mg Q12HR ORAL 10/11/18 09:00 10/27/18 08:59 10/13/18 21:27 Vancomycin HCl (Firvanq) 125 mg FOUR TIMES A DAY ORAL 10/11/18 09:00 10/17/18 23:59 10/13/18 21:27 Barney Neil MD Oct 14, 2018 08:23
[2018-10-14] MEDS: Vancomycin oral 125mg/2.5ml ORAL SCH ×4 (09:29→23:02)
[2018-10-14] MEDS: Heparin 5000 units/ml inj SUBQ SCH ×2 (09:31→23:15)
--- NOTE | 2018-10-14 10:46 | NUR ---
NURSE NOTES: Received pt from [facility] at 0730. Pt is confused and orient x2. pt has NC 2LMP. pt has PICC ROCKY SL. Pt is eating breakfast by helping CLINIC CMA. all needs attended, bed is locked and is in the lowest position. call light within easy reach. will continue to monitor.
--- NOTE | 2018-10-14 11:13 | Cardiology Progress Note ---
Assessment/Plan Assessment/Plan tachy ? MAT vs sinus svt hypotension septic shock resolved ards alcohol with drawl syndrome ams improved etoh intoxication respiratory failure resolved thrombocytopenia cxr last doen 10/10 echo normal lv systolic function iv abx torp neg will dc amiod bp on eh low side midodrine was started will order cortisol level in am Subjective ROS Limited/Unobtainable: Yes Subjective responds but nto communicate Objective Last 24 Hour Vital Signs Date Time Temp Pulse Resp B/P (MAP) Pulse Ox O2 Delivery O2 Flow Rate FiO2 10/14/18 09:14 98 Nasal Cannula 2.0 28 10/14/18 09:14 Nasal Cannula 2.0 28 10/14/18 08:00 97.6 71 18 95/62 (73) 99 10/14/18 04:00 98.5 73 17 99/60 (73) 95 10/14/18 00:01 98.8 80 17 105/64 (78) 95 10/13/18 21:00 Room Air Room Air 10/13/18 20:00 98.3 77 18 104/63 (77) 96 10/13/18 18:45 Nasal Cannula 2.0 28 10/13/18 18:45 97 Nasal Cannula 2.0 28 10/13/18 16:00 98.0 79 18 99/61 (74) 96 10/13/18 12:11 98.3 81 18 97/59 (72) 98 General Appearance: no apparent distress, alert Neck: supple Cardiovascular: normal rate Respiratory/Chest: lungs clear Abdomen: normal bowel sounds, non tender, soft Extremities: no swelling Intake and Output 10/13/18 10/14/18 19:00 07:00 Output Total 800 ml Balance -800 ml Output Urine Total 800 ml # Voids 2 # Bowel Movements 2 Laboratory Tests Test 10/14/18 04:30 White Blood Count 10.3 K/UL (4.8-10.8) Red Blood Count 3.05 M/UL (4.70-6.10) L Hemoglobin 9.2 G/DL (14.2-18.0) L Hematocrit 28.0 % (42.0-52.0) L Mean Corpuscular Volume 92 FL (80-99) Mean Corpuscular Hemoglobin 30.0 PG (27.0-31.0) Mean Corpuscular Hemoglobin Concent 32.7 G/DL (32.0-36.0) Red Cell Distribution Width 16.0 % (11.6-14.8) H Platelet Count 399 K/UL (150-450) Mean Platelet Volume 7.6 FL (6.5-10.1) Neutrophils (%) (Auto) 69.1 % (45.0-75.0) Lymphocytes (%) (Auto) 11.7 % (20.0-45.0) L Monocytes (%) (Auto) 7.3 % (1.0-10.0) Eosinophils (%) (Auto) 9.0 % (0.0-3.0) H Basophils (%) (Auto) 2.9 % (0.0-2.0) H Sodium Level 143 MMOL/L (136-145) Potassium Level 3.9 MMOL/L (3.5-5.1) Chloride Level 106 MMOL/L (98-107) Carbon Dioxide Level 28 MMOL/L (21-32) Anion Gap 9 mmol/L (5-15) Blood Urea Nitrogen 14 mg/dL (7-18) Creatinine 1.2 MG/DL (0.55-1.30) Estimat Glomerular Filtration Rate > 60 mL/min (>60) Glucose Level 87 MG/DL (74-106) Calcium Level 8.5 MG/DL (8.5-10.1) Mumtaz Leon MD Oct 14, 2018 11:13
--- NOTE | 2018-10-14 11:32 | NUR ---
REAL ESTATE MANAGEMENT SPECIALIST Co-Signature Notes: Reviewed patient's chart. Reviewed and approved REAL ESTATE MANAGEMENT SPECIALIST notes Addendum: 10/14/18 at 1134 by KRIS KOHLER PT,MG Amended: Links added.
[2018-10-14 12:00] VITALS: BP 102/66
--- NOTE | 2018-10-14 12:15 | NUR ---
*-* INSURANCE *-* UPDATED CLINICALS FAXED TO: FAXED TO THE [facility] FAX NUMBER [facility] [phone] Work Fax
--- NOTE | 2018-10-14 12:48 | Pulmonology Progress Note ---
Assessment/Plan Problems: (1) C. difficile colitis (2) Acute alcoholic intoxication (3) Hematuria (4) Alcohol withdrawal (5) Delirium tremens (6) ARDS (adult respiratory distress syndrome) Assessment & Plan: resolved Assessment/Plan doing better vancomycin po dc planning pt ot dvt prophylaxis. Subjective ROS Limited/Unobtainable: No Constitutional: Reports: no symptoms HEENT: Repors: no symptoms Allergies: Coded Allergies: No Known Allergies (Unverified , 09/06/15) Objective Last 24 Hour Vital Signs Date Time Temp Pulse Resp B/P (MAP) Pulse Ox O2 Delivery O2 Flow Rate FiO2 10/14/18 12:00 98.4 75 18 102/66 (78) 99 10/14/18 09:14 98 Nasal Cannula 2.0 28 10/14/18 09:14 Nasal Cannula 2.0 28 10/14/18 08:00 97.6 71 18 95/62 (73) 99 10/14/18 04:00 98.5 73 17 99/60 (73) 95 10/14/18 00:01 98.8 80 17 105/64 (78) 95 10/13/18 21:00 Room Air Room Air 10/13/18 20:00 98.3 77 18 104/63 (77) 96 10/13/18 18:45 Nasal Cannula 2.0 28 10/13/18 18:45 97 Nasal Cannula 2.0 28 10/13/18 16:00 98.0 79 18 99/61 (74) 96 Intake and Output 10/13/18 10/14/18 19:00 07:00 Output Total 800 ml Balance -800 ml Output Urine Total 800 ml # Voids 2 # Bowel Movements 2 Objective General Appearance: WD/WN Lines, tubes and drains: peripheral HEENT: normocephalic, anicteric Neck: non-tender, normal alignment Respiratory/Chest: chest wall non-tender, lungs clear Breasts: no masses Cardiovascular/Chest: normal peripheral pulses Abdomen: normal bowel sounds Genitourinary/Rectal: normal genital Laboratory Tests 10/14/18 04:30: White Blood Count 10.3, Red Blood Count 3.05L, Hemoglobin 9.2L, Hematocrit 28.0L , Mean Corpuscular Volume 92, Mean Corpuscular Hemoglobin 30.0, Mean Corpuscular Hemoglobin Concent 32.7, Red Cell Distribution Width 16.0H, Platelet Count 399, Mean Platelet Volume 7.6, Neutrophils (%) (Auto) 69.1, Lymphocytes (%) (Auto) 11.7L, Monocytes (%) (Auto) 7.3, Eosinophils (%) (Auto) 9.0H, Basophils (%) (Auto) 2.9H, Sodium Level 143, Potassium Level 3.9, Chloride Level 106, Carbon Dioxide Level 28, Anion Gap 9, Blood Urea Nitrogen 14 , Creatinine 1.2, Estimat Glomerular Filtration Rate > 60, Glucose Level 87, Calcium Level 8.5, Cortisol AM Sample [Pending] Current Medications Medications (Trade) Dose Ordered Sig/Hoa Route PRN Reason Start Time Stop Time Status Last Admin Dose Admin Acetaminophen (Tylenol) 650 mg Q4H PRN ORAL fever (temp>100.5F) 10/10/18 23:30 11/08/18 15:22 Chlordiazepoxide (Librium) 25 mg Q8H ORAL 10/11/18 01:00 10/17/18 16:59 10/14/18 09:29 Chlorhexidine Gluconate (Zainab-Hex 2%) 1 applic DAILY@1999 TOPIC 10/11/18 20:00 11/02/18 19:59 10/13/18 21:26 Heparin Sodium (Porcine) (Heparin 5000 units/ml) 5,000 units EVERY 12 HOURS SUBQ 10/11/18 09:00 11/09/18 20:59 10/14/18 09:31 Midodrine (Pro-Amatine) 2.5 mg THREE TIMES A DAY ORAL 10/13/18 18:00 11/12/18 17:59 10/14/18 12:30 Quetiapine Fumarate (SEROquel) 50 mg Q12HR ORAL 10/11/18 09:00 10/27/18 08:59 10/14/18 09:30 Vancomycin HCl (Firvanq) 125 mg FOUR TIMES A DAY ORAL 10/11/18 09:00 10/17/18 23:59 10/14/18 12:30 Garret Petty MD Oct 14, 2018 12:48
--- NOTE | 2018-10-14 13:11 | NUR ---
[employer]AL [employer] SI: C. DIFFICILE COLITIS . ARDS VS: BP 95/62, P 80, T 98.4, RR 17, SpO2 98 on 2.0L O2 NC RBC 3.05, Hgb 9.2, Hct 28.0 IS: MIDODRINE 2.5mg LIBRIUM 25mg VANCOMYCIN 125mg SEROQUEL 50mg HEPARIN SUBQ MED/SURG STATUS
--- NOTE | 2018-10-14 14:12 | Nephrology Progress Note ---
Assessment/Plan Problem List: (1) ATN (acute tubular necrosis) (2) ARDS (adult respiratory distress syndrome) (3) Acute respiratory failure with hypoxemia Assessment: extubated 10/08 Assessment (1) Acute respiratory failure with hypoxemia-now extubated (2) ARDS (adult respiratory distress syndrome) (3) ATN (acute tubular necrosis)- resolved (4) Delirium tremens (5) Rapid atrial fibrillation Plan change Librium to PRN start midodrine stable from renal stand post extubation toilet Librium PRN Keep BP under control Avoid nephrotoxics monitor renal parameters Albumin boluses as needed k and phos and Mag as needed Subjective ROS Limited/Unobtainable: No Constitutional: Reports: malaise Objective Objective Last 24 Hour Vital Signs Date Time Temp Pulse Resp B/P (MAP) Pulse Ox O2 Delivery O2 Flow Rate FiO2 10/14/18 12:00 98.4 75 18 102/66 (78) 99 10/14/18 09:14 98 Nasal Cannula 2.0 28 10/14/18 09:14 Nasal Cannula 2.0 28 10/14/18 09:00 Room Air 2.0 Nasal Cannula 10/14/18 08:00 97.6 71 18 95/62 (73) 99 10/14/18 04:00 98.5 73 17 99/60 (73) 95 10/14/18 00:01 98.8 80 17 105/64 (78) 95 10/13/18 21:00 Room Air Room Air 10/13/18 20:00 98.3 77 18 104/63 (77) 96 10/13/18 18:45 Nasal Cannula 2.0 28 10/13/18 18:45 97 Nasal Cannula 2.0 28 10/13/18 16:00 98.0 79 18 99/61 (74) 96 Intake and Output 10/13/18 10/14/18 19:00 07:00 Output Total 800 ml Balance -800 ml Output Urine Total 800 ml # Voids 2 # Bowel Movements 2 Laboratory Tests 10/14/18 04:30: White Blood Count 10.3, Red Blood Count 3.05L, Hemoglobin 9.2L, Hematocrit 28.0L , Mean Corpuscular Volume 92, Mean Corpuscular Hemoglobin 30.0, Mean Corpuscular Hemoglobin Concent 32.7, Red Cell Distribution Width 16.0H, Platelet Count 399, Mean Platelet Volume 7.6, Neutrophils (%) (Auto) 69.1, Lymphocytes (%) (Auto) 11.7L, Monocytes (%) (Auto) 7.3, Eosinophils (%) (Auto) 9.0H, Basophils (%) (Auto) 2.9H, Sodium Level 143, Potassium Level 3.9, Chloride Level 106, Carbon Dioxide Level 28, Anion Gap 9, Blood Urea Nitrogen 14 , Creatinine 1.2, Estimat Glomerular Filtration Rate > 60, Glucose Level 87, Calcium Level 8.5, Cortisol AM Sample [Pending] Height (Feet): 5 Height (Inches): 6.00 Weight (Pounds): 139 General Appearance: no apparent distress Objective no other change Kaden Cordova MD Oct 14, 2018 14:12
--- NOTE | 2018-10-14 15:15 | NUR ---
DISCHARGE PLANNING FAXED REFERRAL TO: [facility] F- [facility] F-
[2018-10-14 15:55] VITALS: BP 107/64
--- NOTE | 2018-10-14 17:49 | Internal Med Progress Note ---
Subjective Date of Service: Oct 14, 2018 Physician Name Sanford Castellano Attending Physician Benjamin Sterling MD Current Medications Medications (Trade) Dose Ordered Sig/Hoa Route PRN Reason Start Time Stop Time Status Last Admin Dose Admin Acetaminophen (Tylenol) 650 mg Q4H PRN ORAL fever (temp>100.5F) 10/10/18 23:30 11/08/18 15:22 Chlordiazepoxide (Librium) 25 mg Q6H PRN ORAL agitation 10/14/18 14:15 10/17/18 16:59 Chlorhexidine Gluconate (Zainab-Hex 2%) 1 applic DAILY@1999 TOPIC 10/11/18 20:00 11/02/18 19:59 10/13/18 21:26 Heparin Sodium (Porcine) (Heparin 5000 units/ml) 5,000 units EVERY 12 HOURS SUBQ 10/11/18 09:00 11/09/18 20:59 10/14/18 09:31 Midodrine (Pro-Amatine) 2.5 mg THREE TIMES A DAY ORAL 10/13/18 18:00 11/12/18 17:59 10/14/18 17:32 Quetiapine Fumarate (SEROquel) 50 mg Q12HR ORAL 10/11/18 09:00 10/27/18 08:59 10/14/18 09:30 Vancomycin HCl (Firvanq) 125 mg FOUR TIMES A DAY ORAL 10/11/18 09:00 10/17/18 23:59 10/14/18 17:32 Allergies: Coded Allergies: No Known Allergies (Unverified , 09/06/15) ROS Limited/Unobtainable: Yes Subjective 68 YO M admitted with hematuria and hypotension. Now atrial fibrillation with rapid ventricular rate. Cover for Int Med-Dr Sterling. Extubated 10/08/18; tolerating nasal canula Objective Last Vital Signs Date Time Temp Pulse Resp B/P (MAP) Pulse Ox O2 Delivery O2 Flow Rate FiO2 10/14/18 15:55 98.5 75 20 107/64 (78) 95 10/14/18 09:14 Nasal Cannula 2.0 28 Laboratory Tests Test 10/14/18 04:30 White Blood Count 10.3 K/UL (4.8-10.8) Red Blood Count 3.05 M/UL (4.70-6.10) L Hemoglobin 9.2 G/DL (14.2-18.0) L Hematocrit 28.0 % (42.0-52.0) L Mean Corpuscular Volume 92 FL (80-99) Mean Corpuscular Hemoglobin 30.0 PG (27.0-31.0) Mean Corpuscular Hemoglobin Concent 32.7 G/DL (32.0-36.0) Red Cell Distribution Width 16.0 % (11.6-14.8) H Platelet Count 399 K/UL (150-450) Mean Platelet Volume 7.6 FL (6.5-10.1) Neutrophils (%) (Auto) 69.1 % (45.0-75.0) Lymphocytes (%) (Auto) 11.7 % (20.0-45.0) L Monocytes (%) (Auto) 7.3 % (1.0-10.0) Eosinophils (%) (Auto) 9.0 % (0.0-3.0) H Basophils (%) (Auto) 2.9 % (0.0-2.0) H Sodium Level 143 MMOL/L (136-145) Potassium Level 3.9 MMOL/L (3.5-5.1) Chloride Level 106 MMOL/L (98-107) Carbon Dioxide Level 28 MMOL/L (21-32) Anion Gap 9 mmol/L (5-15) Blood Urea Nitrogen 14 mg/dL (7-18) Creatinine 1.2 MG/DL (0.55-1.30) Estimat Glomerular Filtration Rate > 60 mL/min (>60) Glucose Level 87 MG/DL (74-106) Calcium Level 8.5 MG/DL (8.5-10.1) Cortisol AM Sample Pending Intake and Output 10/13/18 10/14/18 19:00 07:00 Output Total 800 ml Balance -800 ml Output Urine Total 800 ml # Voids 2 # Bowel Movements 2 Objective General Appearance: WD/WN, no apparent distress, alert EENT: PERRL/EOMI, normal ENT inspection, TMs normal Neck: non-tender, normal alignment, supple, normal inspection Cardiovascular: Tachy; irreg/irreg; normal peripheral pulses, normal rate, no gallop/murmur, no JVD Respiratory/Chest: nasal canula; chest wall non-tender, lungs clear, coarse upper breath sounds, no respiratory distress, no accessory muscle use Abdomen: normal bowel sounds, non tender, soft, no organomegaly, no mass Extremities: normal range of motion, non-tender 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 Atrial fibrillation with rapid ventricular rate 6. Respiratory failure/ARDS 7. Urinary tract infection=M 8. Morganella morganii 9. C.Diff diarrhea Assessment/Plan fernandez cultures iv abx banana bag Librium, Seroquel and Klonipin iv abx, ID evaluation Continue nasal canula per pulmonary Abx= oral Sanford Pressley MD Oct 14, 2018 17:49
--- NOTE | 2018-10-14 19:37 | NUR ---
HAND-OFF: Report given to YING JEFFERS.
[2018-10-14 20:00] VITALS: BP 109/69
[2018-10-14] MEDS: Dyna-Hex 2% Top Sol 2oz TOPIC SCH (23:02)
[2018-10-15] VITALS: BP 112/52
[2018-10-15 04:00] VITALS: BP 120/58
--- NOTE | 2018-10-15 07:59 | NUR ---
HAND-OFF: Report given to Kristan Rogers.
[2018-10-15 08:00] VITALS: BP 100/54
[2018-10-15] MEDS: Heparin 5000 units/ml inj SUBQ SCH ×2 (09:28→20:55)
[2018-10-15] MEDS: Vancomycin oral 125mg/2.5ml ORAL SCH ×4 (09:43→20:53)
--- NOTE | 2018-10-15 10:23 | Infectious Diseases Prog Note ---
Assessment/Plan Assessment/Plan Sepsis/Septic shock- now off pressors -10/03 Bcx NTD -09/26 Bcx Neg Probable UTI,sp Rx -u/a wbc 15-20, nit neg, leuk +3; ucx Morganella morganni (R ancef, amp; otherwise S) Fever- probable multifactorial 2ry to alcohol withdrawal, UTI; improving Leukocytosis, SP -Cdiff + Etoh intoxication- now ETOH withdrawal w/ DT Acute respiratory failure/ ARDS s/p intubation -CXR Extensive airspace disease again demonstrated without change. Thrombocytopenia- probably in the setting of sepsis and bone marrow suppression 2ry to EtOH Afib w/ RVR KARLA, improving EtOH abuse, nephrolithiasis Plan: - Monitor now leukcoytosi - Cont PO Vancomycin #/ for Cdiff colitis -10/07/18 SP Cefepime #8 -09/29 SP Ceftriaxone #4 -09/26 SP Zosyn x1 -f.u cx -Monitor CBC/CMP, temperatures -aspiration precautions -ETT/ICU care Will continue to follow along with you. Subjective Allergies: Coded Allergies: No Known Allergies (Unverified , 09/06/15) Subjective Afebrile BM x 2 Objective Vital Signs Last 24 Hour Vital Signs Date Time Temp Pulse Resp B/P (MAP) Pulse Ox O2 Delivery O2 Flow Rate FiO2 10/15/18 09:42 Nasal Cannula 2.0 28 10/15/18 09:42 98 Nasal Cannula 2.0 28 10/15/18 09:00 Room Air 2.0 Nasal Cannula 10/15/18 08:00 97.7 73 20 100/54 (69) 99 10/15/18 04:00 97.6 67 18 120/58 (78) 96 10/15/18 00:00 98.4 72 18 112/52 (72) 100 10/14/18 21:00 Room Air 2.0 Nasal Cannula 10/14/18 20:28 97 Nasal Cannula 2.0 28 10/14/18 20:28 Nasal Cannula 2.0 28 10/14/18 20:00 98.8 81 18 109/69 (82) 100 10/14/18 15:55 98.5 75 20 107/64 (78) 95 10/14/18 12:00 98.4 75 18 102/66 (78) 99 Height (Feet): 5 Height (Inches): 6.00 Weight (Pounds): 136 Objective General: NAD, laying in bed HEENT: normocephalic, atraumatic, EOMI Respiratory/Chest: Coarse B/L Cardiovascular/Chest: RRR, S1, S2 Abdomen: Soft, Normal bowel sounds Current Medications Medications (Trade) Dose Ordered Sig/Hoa Route PRN Reason Start Time Stop Time Status Last Admin Dose Admin Acetaminophen (Tylenol) 650 mg Q4H PRN ORAL fever (temp>100.5F) 10/10/18 23:30 11/08/18 15:22 Chlordiazepoxide (Librium) 25 mg Q6H PRN ORAL agitation 10/14/18 14:15 10/17/18 16:59 Chlorhexidine Gluconate (Zainab-Hex 2%) 1 applic DAILY@1999 TOPIC 10/11/18 20:00 11/02/18 19:59 10/14/18 23:02 Heparin Sodium (Porcine) (Heparin 5000 units/ml) 5,000 units EVERY 12 HOURS SUBQ 10/11/18 09:00 11/09/18 20:59 10/15/18 09:28 Midodrine (Pro-Amatine) 2.5 mg THREE TIMES A DAY ORAL 10/13/18 18:00 11/12/18 17:59 10/15/18 09:06 Quetiapine Fumarate (SEROquel) 50 mg Q12HR ORAL 10/11/18 09:00 10/27/18 08:59 10/15/18 09:07 Vancomycin HCl (Firvanq) 125 mg FOUR TIMES A DAY ORAL 10/11/18 09:00 10/17/18 23:59 10/15/18 09:43 Barney Niel MD Oct 15, 2018 10:23
--- NOTE | 2018-10-15 10:29 | NUR ---
RECEIVED PATIENT IN BED ASLEEP, BUT EASILY AWAKEN.. NO RESPIRATORY DISTRESS OR SOB DENIES NO PAIN OR DISCOMFORT.. CLEANED AND REPOSITION WITH HEAD OF THE UP 45 DEGREES CALL LIGHT IN REACH
--- NOTE | 2018-10-15 11:18 | Internal Med Progress Note ---
Subjective Date of Service: Oct 15, 2018 Physician Name Sanford Castellano Attending Physician Benjamin Sterling MD Current Medications Medications (Trade) Dose Ordered Sig/Hoa Route PRN Reason Start Time Stop Time Status Last Admin Dose Admin Acetaminophen (Tylenol) 650 mg Q4H PRN ORAL fever (temp>100.5F) 10/10/18 23:30 11/08/18 15:22 Chlordiazepoxide (Librium) 25 mg Q6H PRN ORAL agitation 10/14/18 14:15 10/17/18 16:59 Chlorhexidine Gluconate (Zainab-Hex 2%) 1 applic DAILY@1999 TOPIC 10/11/18 20:00 11/02/18 19:59 10/14/18 23:02 Heparin Sodium (Porcine) (Heparin 5000 units/ml) 5,000 units EVERY 12 HOURS SUBQ 10/11/18 09:00 11/09/18 20:59 10/15/18 09:28 Midodrine (Pro-Amatine) 2.5 mg THREE TIMES A DAY ORAL 10/13/18 18:00 11/12/18 17:59 10/15/18 09:06 Quetiapine Fumarate (SEROquel) 50 mg Q12HR ORAL 10/11/18 09:00 10/27/18 08:59 10/15/18 09:07 Vancomycin HCl (Firvanq) 125 mg FOUR TIMES A DAY ORAL 10/11/18 09:00 10/17/18 23:59 10/15/18 09:43 Allergies: Coded Allergies: No Known Allergies (Unverified , 09/06/15) ROS Limited/Unobtainable: No Constitutional: Reports: no symptoms HEENT: Reports: no symptoms Cardiovascular: Reports: no symptoms Respiratory: Reports: no symptoms Gastrointestinal/Abdominal: Reports: no symptoms, poor appetite Genitourinary: Reports: no symptoms Neurologic/Psychiatric: Reports: no symptoms Subjective 68 YO M admitted with hematuria and hypotension. Now atrial fibrillation with rapid ventricular rate. Cover for Int Med-Dr Sterling. Extubated 10/08/18; tolerating nasal canula Objective Last Vital Signs Date Time Temp Pulse Resp B/P (MAP) Pulse Ox O2 Delivery O2 Flow Rate FiO2 10/15/18 09:42 Nasal Cannula 2.0 28 10/15/18 09:42 98 10/15/18 08:00 97.7 73 20 100/54 (69) Intake and Output 10/14/18 10/15/18 19:00 07:00 Intake Total 720 ml Balance 720 ml Intake Oral 720 ml # Voids 3 1 # Bowel Movements 1 Objective General Appearance: WD/WN, no apparent distress, alert EENT: PERRL/EOMI, normal ENT inspection, TMs normal Neck: non-tender, normal alignment, supple, normal inspection Cardiovascular: Tachy; irreg/irreg; normal peripheral pulses, normal rate, no gallop/murmur, no JVD Respiratory/Chest: nasal canula; chest wall non-tender, lungs clear, coarse upper breath sounds, no respiratory distress, no accessory muscle use Abdomen: normal bowel sounds, non tender, soft, no organomegaly, no mass Extremities: normal range of motion, non-tender 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 Atrial fibrillation with rapid ventricular rate 6. Respiratory failure/ARDS 7. Urinary tract infection=M 8. Morganella morganii 9. C.Diff diarrhea Assessment/Plan fernandez cultures iv abx banana bag Librium, Seroquel and Klonipin iv abx, ID evaluation Continue nasal canula per pulmonary Abx= oral vanco Discharge planning: [facility] Sanford Castellano MD Oct 15, 2018 11:18
[2018-10-15 12:00] VITALS: BP 104/68
--- NOTE | 2018-10-15 12:45 | Pulmonology Progress Note ---
Assessment/Plan Problems: (1) C. difficile colitis (2) Acute alcoholic intoxication (3) Hematuria (4) Alcohol withdrawal (5) Delirium tremens (6) ARDS (adult respiratory distress syndrome) Assessment & Plan: resolved Assessment/Plan doing better vancomycin po dc planning pt ot dvt prophylaxis. need another sample of stool to get discharged. Subjective ROS Limited/Unobtainable: No Constitutional: Reports: no symptoms HEENT: Repors: no symptoms Respiratory: Reports: no symptoms Allergies: Coded Allergies: No Known Allergies (Unverified , 09/06/15) Objective Last 24 Hour Vital Signs Date Time Temp Pulse Resp B/P (MAP) Pulse Ox O2 Delivery O2 Flow Rate FiO2 10/15/18 09:42 Nasal Cannula 2.0 28 10/15/18 09:42 98 Nasal Cannula 2.0 28 10/15/18 09:00 Room Air 2.0 Nasal Cannula 10/15/18 08:00 97.7 73 20 100/54 (69) 99 10/15/18 04:00 97.6 67 18 120/58 (78) 96 10/15/18 00:00 98.4 72 18 112/52 (72) 100 10/14/18 21:00 Room Air 2.0 Nasal Cannula 10/14/18 20:28 97 Nasal Cannula 2.0 28 10/14/18 20:28 Nasal Cannula 2.0 28 10/14/18 20:00 98.8 81 18 109/69 (82) 100 10/14/18 15:55 98.5 75 20 107/64 (78) 95 Intake and Output 10/14/18 10/15/18 19:00 07:00 Intake Total 720 ml Balance 720 ml Intake Oral 720 ml # Voids 3 1 # Bowel Movements 1 Objective General Appearance: WD/WN Lines, tubes and drains: peripheral HEENT: normocephalic, anicteric Neck: non-tender, normal alignment Respiratory/Chest: chest wall non-tender, lungs clear Breasts: no masses Cardiovascular/Chest: normal peripheral pulses Abdomen: normal bowel sounds Genitourinary/Rectal: normal genital Current Medications Medications (Trade) Dose Ordered Sig/Hoa Route PRN Reason Start Time Stop Time Status Last Admin Dose Admin Acetaminophen (Tylenol) 650 mg Q4H PRN ORAL fever (temp>100.5F) 10/10/18 23:30 11/08/18 15:22 Chlordiazepoxide (Librium) 25 mg Q6H PRN ORAL agitation 10/14/18 14:15 10/17/18 16:59 Chlorhexidine Gluconate (Zainab-Hex 2%) 1 applic DAILY@2000 TOPIC 10/11/18 20:00 11/02/18 19:59 10/14/18 23:02 Heparin Sodium (Porcine) (Heparin 5000 units/ml) 5,000 units EVERY 12 HOURS SUBQ 10/11/18 09:00 11/09/18 20:59 10/15/18 09:28 Midodrine (Pro-Amatine) 2.5 mg THREE TIMES A DAY ORAL 10/13/18 18:00 11/12/18 17:59 10/15/18 09:06 Quetiapine Fumarate (SEROquel) 50 mg Q12HR ORAL 10/11/18 09:00 10/27/18 08:59 10/15/18 09:07 Vancomycin HCl (Firvanq) 125 mg FOUR TIMES A DAY ORAL 10/11/18 09:00 10/17/18 23:59 10/15/18 09:43 Garret Petty MD Oct 15, 2018 12:45
--- NOTE | 2018-10-15 12:57 | NUR ---
STUDENT GAVE SECOND BATH NO BOWEL MOVEMENT AT THIS TIME AWAITING ON C- DIFF SPECIMEN.. CALL LIGHT IN REACH
--- NOTE | 2018-10-15 13:18 | NUR ---
DISCOLORATION ON PENIS NO OPEN WOUNDS NOTED
--- NOTE | 2018-10-15 13:39 | NUR ---
RESEARCH ENVIRONMENTAL ENGINEER NOTES SPOKE WITH JOSE ALFREDO FROM [employer] INCLUDES THE [facility], MADE AWARE OF PT ACCEPTED TO [facility] ON [address] WITH AUTH PENDING. PROVIDED JOSE ALFREDO CONTACT INFORMATION TO GIVE THE AUTH FOR SNF. WILL FOLLOW UP.
--- NOTE | 2018-10-15 14:05 | NUR ---
*-* INSURANCE *-* UPDATED CLINICALS FAXED TO: FAXED TO THE [facility] FAX NUMBER [facility] [phone] Work Fax
--- NOTE | 2018-10-15 14:30 | NUR ---
[employer]ATIVE [employer] SI: C. DIFFICILE COLITIS . ARDS VS: BP 100/54, P 67, T 98.0, RR 18, SpO2 98 on 2.0L O2 NC IS: MIDODRINE 2.5mg LIBRIUM 25mg VANCOMYCIN 125mg SEROQUEL 50mg HEPARIN SUBQ MED/SURG STATUS
[2018-10-15 16:00] VITALS: BP 116/86
--- NOTE | 2018-10-15 17:22 | Nephrology Progress Note ---
Assessment/Plan Problem List: (1) ATN (acute tubular necrosis) (2) ARDS (adult respiratory distress syndrome) (3) Acute respiratory failure with hypoxemia Assessment: extubated 10/08 Assessment (1) Acute respiratory failure with hypoxemia-now extubated (2) ARDS (adult respiratory distress syndrome) (3) ATN (acute tubular necrosis)- resolved (4) Delirium tremens (5) Rapid atrial fibrillation Plan no labs today change Librium to PRN start midodrine stable from renal stand post extubation toilet Librium PRN Keep BP under control Avoid nephrotoxics monitor renal parameters Albumin boluses as needed k and phos and Mag as needed Subjective ROS Limited/Unobtainable: No Objective Objective Last 24 Hour Vital Signs Date Time Temp Pulse Resp B/P (MAP) Pulse Ox O2 Delivery O2 Flow Rate FiO2 10/15/18 13:34 Nasal Cannula 2.0 Nasal Cannula 2.0 10/15/18 12:00 98.0 72 104/68 (80) 10/15/18 09:42 Nasal Cannula 2.0 28 10/15/18 09:42 98 Nasal Cannula 2.0 28 10/15/18 09:00 Room Air 2.0 Nasal Cannula 10/15/18 08:00 97.7 73 20 100/54 (69) 99 10/15/18 04:00 97.6 67 18 120/58 (78) 96 10/15/18 00:00 98.4 72 18 112/52 (72) 100 10/14/18 21:00 Room Air 2.0 Nasal Cannula 10/14/18 20:28 97 Nasal Cannula 2.0 28 10/14/18 20:28 Nasal Cannula 2.0 28 10/14/18 20:00 98.8 81 18 109/69 (82) 100 Intake and Output 10/14/18 10/15/18 19:00 07:00 Intake Total 720 ml Balance 720 ml Intake Oral 720 ml # Voids 3 1 # Bowel Movements 1 Height (Feet): 5 Height (Inches): 6.00 Weight (Pounds): 136 General Appearance: no apparent distress Objective no other change Kaden Cordova MD Oct 15, 2018 17:22
[2018-10-15 20:00] VITALS: BP 102/65
[2018-10-15] MEDS: Dyna-Hex 2% Top Sol 2oz TOPIC SCH (20:00)
[2018-10-15] MEDS: chlordiazePOXIDE 25mg Cap ORAL PRN (21:50)
[2018-10-16] VITALS: BP 109/65
--- NOTE | 2018-10-16 03:22 | NUR ---
AWAKE IN BED W/ RESTRAINTS,ABLE TO TAKE PO MEDS.RESTLESS,TRYING TO GET OUT OF BED,PRN MED.GIVEN.DOZING ON AND OFF.REPOSITIONED IN BED.
[2018-10-16 04:00] VITALS: BP 104/64
[2018-10-16 05:34] LABS: BASOPHILS % (AUTO) 1.8 % (0.0-2.0); EOSINOPHILS % (AUTO) 11.2 % (0.0-3.0); HEMATOCRIT 29.8 % (42.0-52.0); HEMOGLOBIN 9.7 G/DL (14.2-18.0); LYMPHOCYTES % (AUTO) 18.2 % (20.0-45.0); MEAN CORPUSCULAR VOLUME 92 FL (80-99); MONOCYTES % (AUTO) 6.9 % (1.0-10.0); NEUTROPHILS % (AUTO) 61.9 % (45.0-75.0); PLATELET COUNT 366 K/UL (150-450); RED BLOOD COUNT 3.25 M/UL (4.70-6.10); RED CELL DISTRIBUTION WIDTH 15.8 % (11.6-14.8); WHITE BLOOD COUNT 8.1 K/UL (4.8-10.8)
[2018-10-16 06:06] LABS: ANION GAP 10 mmol/L (5-15); BLOOD UREA NITROGEN 12 mg/dL (7-18); CALCIUM 8.6 MG/DL (8.5-10.1); CARBON DIOXIDE 28 MMOL/L (21-32); CHLORIDE 105 MMOL/L (98-107); CREATININE 1.2 MG/DL (0.55-1.30); POTASSIUM 3.8 MMOL/L (3.5-5.1); SODIUM 143 MMOL/L (136-145)
[2018-10-16 08:00] VITALS: BP 103/66
[2018-10-16] MEDS: Vancomycin oral 125mg/2.5ml ORAL SCH ×4 (08:03→20:49)
[2018-10-16] MEDS: Heparin 5000 units/ml inj SUBQ SCH ×2 (08:08→20:47)
--- NOTE | 2018-10-16 10:28 | NUR ---
MINIATURE MODEL MA[employer]ER[employer] INTERN SI:C. DIFFICILE COLITIS . ARDS VS: BP 104/64, P 62, T 97.4, RR 18, SpO2 98 on 2.0L O2 NC RBC 3.25, Hgb 9.7, Hct 29.8 IS:MIDODRINE 2.5mg HEPARIN SUBQ SEROQUEL 50mg VANCOMYCIN 125mg MED/SURG STATUS
--- NOTE | 2018-10-16 10:39 | NUR ---
RECEIVED PATIENT IN BED AWAKE.. NO RESPIRATORY DISTRESS OR SOB PATIENT ATTEMPTING TO CLIMB OUT OF BED WITH LEGS OVER RAIL NOTED ASSISTED PATIENT BACK TO BED PULLED UP... CHANGED DUE TO INCONTINENCE. FED ATE 80% FOLLOWED ASPIRATION PRECAUTION NOTED SITTING IN THE ROOM DUE TO FALL RISK CALL LIGHT IN REACFH
--- NOTE | 2018-10-16 10:52 | Infectious Diseases Prog Note ---
Assessment/Plan Assessment/Plan Sepsis/Septic shock- now off pressors -10/03 Bcx NTD -09/26 Bcx Neg Probable UTI,sp Rx -u/a wbc 15-20, nit neg, leuk +3; ucx Morganella morganni (R ancef, amp; otherwise S) Fever- probable multifactorial 2ry to alcohol withdrawal, UTI; improving Leukocytosis, SP -Cdiff + Etoh intoxication- now ETOH withdrawal w/ DT Acute respiratory failure/ ARDS s/p intubation -CXR Extensive airspace disease again demonstrated without change. Thrombocytopenia- probably in the setting of sepsis and bone marrow suppression 2ry to EtOH Afib w/ RVR KARLA, improving EtOH abuse, nephrolithiasis Plan: - Cont PO Vancomycin #/ for Cdiff colitis -10/07/18 SP Cefepime #8 -09/29 SP Ceftriaxone # -09/26 SP Zosyn x1 -f.u cx -Monitor CBC/CMP, temperatures -aspiration precautions -ETT/ICU care Will continue to follow along with you. Subjective Allergies: Coded Allergies: No Known Allergies (Unverified , 09/06/15) Subjective Afebrile No Leukoctyosis Objective Vital Signs Last 24 Hour Vital Signs Date Time Temp Pulse Resp B/P (MAP) Pulse Ox O2 Delivery O2 Flow Rate FiO2 10/16/18 09:00 Room Air Room Air 10/16/18 08:16 98 Nasal Cannula 2.0 28 10/16/18 08:00 98.2 72 17 103/66 (78) 96 10/16/18 07:17 Nasal Cannula 2.0 28 10/16/18 04:00 97.4 62 104/64 (77) 10/16/18 00:00 98.7 75 18 109/65 (80) 95 10/15/18 21:00 Room Air Room Air 10/15/18 20:14 97 Nasal Cannula 2.0 28 10/15/18 20:14 Nasal Cannula 2.0 28 10/15/18 20:00 98.4 74 18 102/65 (77) 97 10/15/18 16:00 98.0 69 18 116/86 (96) 99 10/15/18 13:34 Nasal Cannula 2.0 Nasal Cannula 2.0 10/15/18 12:00 98.0 72 104/68 (80) Height (Feet): 5 Height (Inches): 6.00 Weight (Pounds): 136 Objective General: NAD HEENT: NCAT, MMM, EOMI Respiratory/Chest: CTAB, No W Cardiovascular/Chest: RRR, S1, S2 Abdomen: Soft, Normal bowel sounds Laboratory Tests Test 10/16/18 04:30 White Blood Count 8.1 K/UL (4.8-10.8) Red Blood Count 3.25 M/UL (4.70-6.10) L Hemoglobin 9.7 G/DL (14.2-18.0) L Hematocrit 29.8 % (42.0-52.0) L Mean Corpuscular Volume 92 FL (80-99) Mean Corpuscular Hemoglobin 29.9 PG (27.0-31.0) Mean Corpuscular Hemoglobin Concent 32.6 G/DL (32.0-36.0) Red Cell Distribution Width 15.8 % (11.6-14.8) H Platelet Count 366 K/UL (150-450) Mean Platelet Volume 7.2 FL (6.5-10.1) Neutrophils (%) (Auto) 61.9 % (45.0-75.0) Lymphocytes (%) (Auto) 18.2 % (20.0-45.0) L Monocytes (%) (Auto) 6.9 % (1.0-10.0) Eosinophils (%) (Auto) 11.2 % (0.0-3.0) H Basophils (%) (Auto) 1.8 % (0.0-2.0) Sodium Level 143 MMOL/L (136-145) Potassium Level 3.8 MMOL/L (3.5-5.1) Chloride Level 105 MMOL/L (98-107) Carbon Dioxide Level 28 MMOL/L (21-32) Anion Gap 10 mmol/L (5-15) Blood Urea Nitrogen 12 mg/dL (7-18) Creatinine 1.2 MG/DL (0.55-1.30) Estimat Glomerular Filtration Rate > 60 mL/min (>60) Glucose Level 87 MG/DL (74-106) Calcium Level 8.6 MG/DL (8.5-10.1) Current Medications Medications (Trade) Dose Ordered Sig/Hoa Route PRN Reason Start Time Stop Time Status Last Admin Dose Admin Acetaminophen (Tylenol) 650 mg Q4H PRN ORAL fever (temp>100.5F) 10/10/18 23:30 11/08/18 15:22 Chlordiazepoxide (Librium) 25 mg Q6H PRN ORAL agitation 10/14/18 14:15 10/17/18 16:59 10/15/18 21:50 Chlorhexidine Gluconate (Zainab-Hex 2%) 1 applic DAILY@2000 TOPIC 10/11/18 20:00 11/02/18 19:59 10/15/18 20:00 Heparin Sodium (Porcine) (Heparin 5000 units/ml) 5,000 units EVERY 12 HOURS SUBQ 10/11/18 09:00 11/09/18 20:59 10/16/18 08:08 Midodrine (Pro-Amatine) 2.5 mg THREE TIMES A DAY ORAL 10/13/18 18:00 11/12/18 17:59 10/16/18 08:04 Quetiapine Fumarate (SEROquel) 50 mg Q12HR ORAL 10/11/18 09:00 10/27/18 08:59 10/16/18 08:03 Vancomycin HCl (Firvanq) 125 mg FOUR TIMES A DAY ORAL 10/11/18 09:00 10/17/18 23:59 10/16/18 08:03 Barney Neil MD Oct 16, 2018 10:52
[2018-10-16 12:00] VITALS: BP 125/82
[2018-10-16] MEDS: chlordiazePOXIDE 25mg Cap ORAL PRN (13:30)
--- NOTE | 2018-10-16 13:44 | NUR ---
PATIENT ATTEMPTING TO CLIMB OUT OF BED PLACING FEET OVER THE BED RAILING NOTED GAVE MEDICATION FOR AGITATION NO ACUTE DISTRESS CALL LIGHT IN REACH
--- NOTE | 2018-10-16 13:55 | Pulmonology Progress Note ---
Assessment/Plan Problems: (1) C. difficile colitis (2) Acute alcoholic intoxication (3) Hematuria (4) Alcohol withdrawal (5) Delirium tremens (6) ARDS (adult respiratory distress syndrome) Assessment & Plan: resolved Assessment/Plan doing better vancomycin po dc planning pt ot dvt prophylaxis. need another sample of stool to get discharged. Subjective ROS Limited/Unobtainable: No Allergies: Coded Allergies: No Known Allergies (Unverified , 09/06/15) Objective Last 24 Hour Vital Signs Date Time Temp Pulse Resp B/P (MAP) Pulse Ox O2 Delivery O2 Flow Rate FiO2 10/16/18 09:00 Room Air Room Air 10/16/18 08:16 98 Nasal Cannula 2.0 28 10/16/18 08:00 98.2 72 17 103/66 (78) 96 10/16/18 07:17 Nasal Cannula 2.0 28 10/16/18 04:00 97.4 62 104/64 (77) 10/16/18 00:00 98.7 75 18 109/65 (80) 95 10/15/18 21:00 Room Air Room Air 10/15/18 20:14 97 Nasal Cannula 2.0 28 10/15/18 20:14 Nasal Cannula 2.0 28 10/15/18 20:00 98.4 74 18 102/65 (77) 97 10/15/18 16:00 98.0 69 18 116/86 (96) 99 Intake and Output 10/15/18 10/16/18 19:00 07:00 Intake Total 480 ml Balance 480 ml Intake Oral 480 ml # Voids 3 2 Objective General Appearance: WD/WN Lines, tubes and drains: peripheral HEENT: normocephalic, anicteric Neck: non-tender, normal alignment Respiratory/Chest: chest wall non-tender, lungs clear Breasts: no masses Cardiovascular/Chest: normal peripheral pulses Abdomen: normal bowel sounds Genitourinary/Rectal: normal genital Laboratory Tests 10/16/18 04:30: White Blood Count 8.1, Red Blood Count 3.25L, Hemoglobin 9.7L, Hematocrit 29.8L , Mean Corpuscular Volume 92, Mean Corpuscular Hemoglobin 29.9, Mean Corpuscular Hemoglobin Concent 32.6, Red Cell Distribution Width 15.8H, Platelet Count 366, Mean Platelet Volume 7.2, Neutrophils (%) (Auto) 61.9, Lymphocytes (%) (Auto) 18.2L, Monocytes (%) (Auto) 6.9, Eosinophils (%) (Auto) 11.2H, Basophils (%) (Auto) 1.8, Sodium Level 143, Potassium Level 3.8, Chloride Level 105, Carbon Dioxide Level 28, Anion Gap 10, Blood Urea Nitrogen 12, Creatinine 1.2, Estimat Glomerular Filtration Rate > 60, Glucose Level 87, Calcium Level 8.6 Current Medications Medications (Trade) Dose Ordered Sig/Hoa Route PRN Reason Start Time Stop Time Status Last Admin Dose Admin Acetaminophen (Tylenol) 650 mg Q4H PRN ORAL fever (temp>100.5F) 10/10/18 23:30 11/08/18 15:22 Chlordiazepoxide (Librium) 25 mg Q6H PRN ORAL agitation 10/14/18 14:15 10/17/18 16:59 10/16/18 13:30 Chlorhexidine Gluconate (Zainab-Hex 2%) 1 applic DAILY@2000 TOPIC 10/11/18 20:00 11/02/18 19:59 10/15/18 20:00 Heparin Sodium (Porcine) (Heparin 5000 units/ml) 5,000 units EVERY 12 HOURS SUBQ 10/11/18 09:00 11/09/18 20:59 10/16/18 08:08 Midodrine (Pro-Amatine) 2.5 mg THREE TIMES A DAY ORAL 10/13/18 18:00 11/12/18 17:59 10/16/18 13:30 Quetiapine Fumarate (SEROquel) 50 mg Q12HR ORAL 10/11/18 09:00 10/27/18 08:59 10/16/18 08:03 Vancomycin HCl (Firvanq) 125 mg FOUR TIMES A DAY ORAL 10/11/18 09:00 10/17/18 23:59 10/16/18 13:30 Garret Petty MD Oct 16, 2018 13:55
[2018-10-16 16:00] VITALS: BP 104/66
--- NOTE | 2018-10-16 17:04 | Nephrology Progress Note ---
Assessment/Plan Problem List: (1) ATN (acute tubular necrosis) (2) ARDS (adult respiratory distress syndrome) (3) Acute respiratory failure with hypoxemia Assessment: extubated 10/08 Assessment (1) Acute respiratory failure with hypoxemia-now extubated (2) ARDS (adult respiratory distress syndrome) (3) ATN (acute tubular necrosis)- resolved (4) Delirium tremens (5) Rapid atrial fibrillation Plan change Librium to PRN start midodrine stable from renal stand post extubation toilet Librium PRN Keep BP under control Avoid nephrotoxics monitor renal parameters Albumin boluses as needed k and phos and Mag as needed Subjective ROS Limited/Unobtainable: No Objective Objective Last 24 Hour Vital Signs Date Time Temp Pulse Resp B/P (MAP) Pulse Ox O2 Delivery O2 Flow Rate FiO2 10/16/18 16:00 98.2 102 17 104/66 (79) 98 10/16/18 12:00 98.3 96 18 125/82 (96) 96 10/16/18 09:00 Room Air Room Air 10/16/18 08:16 98 Nasal Cannula 2.0 28 10/16/18 08:00 98.2 72 17 103/66 (78) 96 10/16/18 07:17 Nasal Cannula 2.0 28 10/16/18 04:00 97.4 62 104/64 (77) 10/16/18 00:00 98.7 75 18 109/65 (80) 95 10/15/18 21:00 Room Air Room Air 10/15/18 20:14 97 Nasal Cannula 2.0 28 10/15/18 20:14 Nasal Cannula 2.0 28 10/15/18 20:00 98.4 74 18 102/65 (77) 97 Intake and Output 10/15/18 10/16/18 19:00 07:00 Intake Total 480 ml Balance 480 ml Intake Oral 480 ml # Voids 3 2 Laboratory Tests 10/16/18 04:30: White Blood Count 8.1, Red Blood Count 3.25L, Hemoglobin 9.7L, Hematocrit 29.8L , Mean Corpuscular Volume 92, Mean Corpuscular Hemoglobin 29.9, Mean Corpuscular Hemoglobin Concent 32.6, Red Cell Distribution Width 15.8H, Platelet Count 366, Mean Platelet Volume 7.2, Neutrophils (%) (Auto) 61.9, Lymphocytes (%) (Auto) 18.2L, Monocytes (%) (Auto) 6.9, Eosinophils (%) (Auto) 11.2H, Basophils (%) (Auto) 1.8, Sodium Level 143, Potassium Level 3.8, Chloride Level 105, Carbon Dioxide Level 28, Anion Gap 10, Blood Urea Nitrogen 12, Creatinine 1.2, Estimat Glomerular Filtration Rate > 60, Glucose Level 87, Calcium Level 8.6 Height (Feet): 5 Height (Inches): 6.00 Weight (Pounds): 136 General Appearance: no apparent distress Objective no other change Kaden Cordova MD Oct 16, 2018 17:04
--- NOTE | 2018-10-16 18:30 | NUR ---
COLLECTED STOOL C- DIFF SENT TO LAB VIA NOTED
--- NOTE | 2018-10-16 18:39 | Internal Med Progress Note ---
Subjective Date of Service: Oct 16, 2018 Physician Name Sanford Castellano Attending Physician Benjamin Sterling MD Current Medications Medications (Trade) Dose Ordered Sig/Hoa Route PRN Reason Start Time Stop Time Status Last Admin Dose Admin Acetaminophen (Tylenol) 650 mg Q4H PRN ORAL fever (temp>100.5F) 10/10/18 23:30 11/08/18 15:22 Chlordiazepoxide (Librium) 25 mg Q6H PRN ORAL agitation 10/14/18 14:15 10/17/18 16:59 10/16/18 13:30 Chlorhexidine Gluconate (Zainab-Hex 2%) 1 applic DAILY@1999 TOPIC 10/11/18 20:00 11/02/18 19:59 10/15/18 20:00 Heparin Sodium (Porcine) (Heparin 5000 units/ml) 5,000 units EVERY 12 HOURS SUBQ 10/11/18 09:00 11/09/18 20:59 10/16/18 08:08 Midodrine (Pro-Amatine) 2.5 mg THREE TIMES A DAY ORAL 10/13/18 18:00 11/12/18 17:59 10/16/18 16:57 Quetiapine Fumarate (SEROquel) 50 mg Q12HR ORAL 10/11/18 09:00 10/27/18 08:59 10/16/18 08:03 Vancomycin HCl (Firvanq) 125 mg FOUR TIMES A DAY ORAL 10/11/18 09:00 10/18/18 08:59 10/16/18 16:57 Allergies: Coded Allergies: No Known Allergies (Unverified , 09/06/15) ROS Limited/Unobtainable: Yes Subjective 68 YO M admitted with hematuria and hypotension. Now atrial fibrillation with rapid ventricular rate. Cover for Int Med-Dr Sterling. Extubated 10/08/18; tolerating nasal canula Objective Last Vital Signs Date Time Temp Pulse Resp B/P (MAP) Pulse Ox O2 Delivery O2 Flow Rate FiO2 10/16/18 16:00 98.2 102 17 104/66 (79) 98 10/16/18 09:00 Room Air Room Air 10/16/18 08:16 2.0 28 Laboratory Tests Test 10/16/18 04:30 White Blood Count 8.1 K/UL (4.8-10.8) Red Blood Count 3.25 M/UL (4.70-6.10) L Hemoglobin 9.7 G/DL (14.2-18.0) L Hematocrit 29.8 % (42.0-52.0) L Mean Corpuscular Volume 92 FL (80-99) Mean Corpuscular Hemoglobin 29.9 PG (27.0-31.0) Mean Corpuscular Hemoglobin Concent 32.6 G/DL (32.0-36.0) Red Cell Distribution Width 15.8 % (11.6-14.8) H Platelet Count 366 K/UL (150-450) Mean Platelet Volume 7.2 FL (6.5-10.1) Neutrophils (%) (Auto) 61.9 % (45.0-75.0) Lymphocytes (%) (Auto) 18.2 % (20.0-45.0) L Monocytes (%) (Auto) 6.9 % (1.0-10.0) Eosinophils (%) (Auto) 11.2 % (0.0-3.0) H Basophils (%) (Auto) 1.8 % (0.0-2.0) Sodium Level 143 MMOL/L (136-145) Potassium Level 3.8 MMOL/L (3.5-5.1) Chloride Level 105 MMOL/L (98-107) Carbon Dioxide Level 28 MMOL/L (21-32) Anion Gap 10 mmol/L (5-15) Blood Urea Nitrogen 12 mg/dL (7-18) Creatinine 1.2 MG/DL (0.55-1.30) Estimat Glomerular Filtration Rate > 60 mL/min (>60) Glucose Level 87 MG/DL (74-106) Calcium Level 8.6 MG/DL (8.5-10.1) Intake and Output 10/15/18 10/16/18 19:00 07:00 Intake Total 480 ml Balance 480 ml Intake Oral 480 ml # Voids 3 2 Objective General Appearance: WD/WN, no apparent distress, alert EENT: PERRL/EOMI, normal ENT inspection, TMs normal Neck: non-tender, normal alignment, supple, normal inspection Cardiovascular: Tachy; irreg/irreg; normal peripheral pulses, normal rate, no gallop/murmur, no JVD Respiratory/Chest: nasal canula; chest wall non-tender, lungs clear, coarse upper breath sounds, no respiratory distress, no accessory muscle use Abdomen: normal bowel sounds, non tender, soft, no organomegaly, no mass Extremities: normal range of motion, non-tender Neurologic: lime kiln and recausticizing operator II-XII grossly normal, no motor/sensory deficts Assessment/Plan Assessment/Plan Assessment/Plan Assessment/Plan Problem List: (1) Severe sepsis ICD Codes: A41.9 - Sepsis, unspecified organism; R65.20 - Severe sepsis without septic shock SNOMED: 62528730 (2) Acute alcoholic intoxication ICD Codes: F10.129 - Alcohol abuse with intoxication, unspecified SNOMED: 35300603 (3) Nephrolithiasis ICD Codes: N20.0 - Calculus of kidney SNOMED: 78693445 (4) Hematuria ICD Codes: R31.9 - Hematuria, unspecified SNOMED: 73434805 5. Atrial fibrillation with rapid ventricular rate 6. Respiratory failure/ARDS 7. Urinary tract infection=M 8. Morganella morganii 9. C.Diff diarrhea Assessment/Plan fernandez cultures iv abx banana bag Librium, Seroquel and Klonipin iv abx, ID evaluation Continue nasal canula per pulmonary Abx= oral vanco Discharge planning: intermediate facility Sanford Castellano MD Oct 16, 2018 18:39
--- NOTE | 2018-10-16 19:30 | NUR ---
NURSE NOTES: RECEIVED PATIENT LYING IN BED, AWAKE, ALERT/ORIENTED TO PERSON, REALITY ORIENTATION PROVIDED DURING ASSESSMENT, PATIENT CONGESTED, SUCTIONED PATIENT VIA RIGHT NARE, OBTAINED MODERATED AMOUNT OF YELLOW SECRETIONS, TOLERATED WELL, NO SIGNS AND SYMPTOMS OF ACUTE CARDIO RESPIRATORY DISTRESS/SHORTNESS OF BREATH, DENIES CHEST PAIN, NO EDEMA NOTED. BILATERAL WRIST RESTRAINTS INTACT TO PREVENT PATIENT FROM CLIMBING OUT OF BED, RESTRAINTS REINFORCED. SIDE RAILS UP X3/BED IN LOWEST POSITION FOR SAFETY. CALL LIGHT WITHIN REACH. HOURLY ROUNDING FOR SAFETY/NEEDS. NAD.
[2018-10-16 20:00] VITALS: BP 108/67
[2018-10-16] MEDS: Dyna-Hex 2% Top Sol 2oz TOPIC SCH (20:46)
[2018-10-17] VITALS: BP 106/55
[2018-10-17 04:00] VITALS: BP 125/68
--- NOTE | 2018-10-17 06:18 | NUR ---
NURSE NOTES: RESTED WELL, NO SIGNS AND SYMPTOMS OF DISTRESS, SAFETY MAINTAINED. NAD.
--- NOTE | 2018-10-17 07:30 | NUR ---
HAND-OFF: Report given to DARRIAN BENÍTEZ.
--- NOTE | 2018-10-17 07:45 | NUR ---
NURSE NOTES: Received patient A/A/OX1, confused. no s/sx of resp. distress, PICC line patent and intact on ROCKY. On fall and aspiration precautions with HOB elevated. bed in lowest position, locked. bed alarm on and side rails x3. call light within reach. turn q2h for comfort and good circulation. Denies of pain. kandi soft wrist restraints applied for getting out of bed and recent fall occured. will continue to monitor.
[2018-10-17 08:00] VITALS: BP 111/67
--- NOTE | 2018-10-17 09:03 | Infectious Diseases Prog Note ---
Assessment/Plan Assessment/Plan Sepsis/Septic shock- now off pressors -10/03 Bcx NTD -09/26 Bcx Neg Probable UTI,sp Rx -u/a wbc 15-20, nit neg, leuk +3; ucx Morganella morganni (R ancef, amp; otherwise S) Fever- probable multifactorial 2ry to alcohol withdrawal, UTI; improving Leukocytosis, SP -Cdiff + Etoh intoxication- now ETOH withdrawal w/ DT Acute respiratory failure/ ARDS s/p intubation -CXR Extensive airspace disease again demonstrated without change. Thrombocytopenia- probably in the setting of sepsis and bone marrow suppression 2ry to EtOH Afib w/ RVR KARLA, improving EtOH abuse, nephrolithiasis Plan: - Cont PO Vancomycin #/ for Cdiff colitis -10/07/18 SP Cefepime #8 -09/29 SP Ceftriaxone # -09/26 SP Zosyn x1 -f.u cx -Monitor CBC/CMP, temperatures -aspiration precautions -ETT/ICU care Will continue to follow along with you. Subjective Allergies: Coded Allergies: No Known Allergies (Unverified , 09/06/15) Subjective Afebrile No Leukoctyosis Objective Vital Signs Last 24 Hour Vital Signs Date Time Temp Pulse Resp B/P (MAP) Pulse Ox O2 Delivery O2 Flow Rate FiO2 10/17/18 04:00 97.3 81 18 125/68 (87) 97 10/17/18 00:00 97.5 82 18 106/55 (72) 97 10/16/18 22:06 97 Nasal Cannula 2.0 28 10/16/18 22:06 Nasal Cannula 2.0 28 10/16/18 21:00 Room Air Room Air 10/16/18 20:00 99.0 84 18 108/67 (81) 99 10/16/18 16:00 98.2 102 17 104/66 (79) 98 10/16/18 12:00 98.3 96 18 125/82 (96) 96 Height (Feet): 5 Height (Inches): 6.00 Weight (Pounds): 133 Objective General: NAD, Satting well HEENT: NCAT, MMM, EOMI Respiratory/Chest: CTAB, No W Cardiovascular/Chest: RRR, S1, S2 Abdomen: Soft, Normal bowel sounds Microbiology Date/Time Source Procedure Growth Status 10/16/18 15:23 Stool Clostridium difficile Toxin Assay - Final Complete Current Medications Medications (Trade) Dose Ordered Sig/Hoa Route PRN Reason Start Time Stop Time Status Last Admin Dose Admin Acetaminophen (Tylenol) 650 mg Q4H PRN ORAL fever (temp>100.5F) 10/10/18 23:30 11/08/18 15:22 Chlordiazepoxide (Librium) 25 mg Q6H PRN ORAL agitation 10/14/18 14:15 10/17/18 16:59 10/16/18 13:30 Chlorhexidine Gluconate (Zainab-Hex 2%) 1 applic DAILY@1999 TOPIC 10/11/18 20:00 11/02/18 19:59 10/16/18 20:46 Heparin Sodium (Porcine) (Heparin 5000 units/ml) 5,000 units EVERY 12 HOURS SUBQ 10/11/18 09:00 11/09/18 20:59 10/16/18 20:47 Midodrine (Pro-Amatine) 2.5 mg THREE TIMES A DAY ORAL 10/13/18 18:00 11/12/18 17:59 10/16/18 16:57 Quetiapine Fumarate (SEROquel) 50 mg Q12HR ORAL 10/11/18 09:00 10/27/18 08:59 10/16/18 20:46 Vancomycin HCl (Firvanq) 125 mg FOUR TIMES A DAY ORAL 10/11/18 09:00 10/18/18 08:59 10/16/18 20:49 Barney Neil MD Oct 17, 2018 09:03
[2018-10-17] MEDS: Vancomycin oral 125mg/2.5ml ORAL SCH ×3 (09:08→18:24)
[2018-10-17] MEDS: Heparin 5000 units/ml inj SUBQ SCH (09:09)
--- NOTE | 2018-10-17 11:10 | NUR ---
RD ASSESSMENT & RECOMMENDATIONS SEE CARE ACTIVITY FOR COMPLETE ASSESSMENT DAILY ESTIMATED NEEDS: Needs based on cardiac 70kg 25-30 kcals/kg 2067-1387 total kcals 1-1.3 g protein/kg 70-91 g total protein 20-25 mL/kg 3110-7819 total fluid mLs NUTRITION DIAGNOSIS: 1) Swallowing difficulty r/t respiratory status as evidenced by s/p extubation, s/p NGT removal, SECOND OPERATOR recommends pureed moist texture, NTL if PO given for quality of life. 2) Altered nutrition related lab values r/t clinical status as evidenced by low pH-> now wnl, elev WBC (22->11.5), elev Na (147- wnl), Low K (3.3-> wnl), low Mg (1.7), elev BG (216-> wnl), elev phos (5.7), elev BNP (1636->1140), and elev serum alcohol on adm. PO DIET RECOMMENDATIONS: Liberalized Regular/ texture per SECOND OPERATOR ADDITIONAL RECOMMENDATIONS: 1) RE-calibrate bed scale for accurate CBW 2) Continue w/ thiamine, add MVI- h/o ETOH abuse 3) Monitor lytes, replete as needed 4) Monitor PO intake and tolerance closely- s/p extubation on 10/08 5) Add Ensure BID + snacks
[2018-10-17 12:00] VITALS: BP 100/64
--- NOTE | 2018-10-17 12:06 | NUR ---
WEEKLY SWALLOW/SPEECH THERAPY SUMMARY: SUBJECTIVE: [place]-SPEAKING FROM [place] ([place]). ALERT BUT HAS POOR VERBAL INITIATION. PER RN, YESTERDAY, PATIENT NEEDED DEEP SUCTION VIA NARES FOR MODERATE, YELLOW SECRETIONS. PER RD, LIBERALIZE DIET TYPE. NO NEW CXR SINCE 10/10/18. OBJECTIVE: GOALS MET FOR NEW STAFF EDUCATED/TRAINED IN POSTED ASPIRATION PRECAUTIONS WITH PUREED AND NECTAR THICK LIQUID DIET. GOALS FOR INTAKE NOT CONSISTENTLY MET (50/75/100%). DIFFICULT TO TRAIN PATIENT IN SWALLOW EXERCISES,ASPIRATION PRECAUTIONS, AND SWALLOWING STRATEGIES SINCE VERY CONFUSED WHEN SPOKEN TO IN [place], HIS PRIMARY LANGUAGE. PATIENT DOES NOT CONSISTENTLY FOLLOW COMMANDS NOR ANSWER QUESTIONS. MOD BARIUM SWALLOW STUDY NOT YET COMPLETED DUE TO SCHEDULING PROBLEMS. PLAN: CONTINUE WITH DYSPHAGIA MANAGEMENT/TREATMENT PLAN OF CARE NOTED IN SWALLOW EVAL REPORT. COMPLETED MOD BARIUM SWALLOW STUDY IP [place] [facility] [place] SW[place]OW, DETERMINE SILENT ASPIRATION RISK/ETIOLOGY, AND ATTEMPT TRIAL TX TECHNIQUES. WILL ADD ENSURE BID AND SNACK PER RD NOTE 10/17/18. D/W PATIENT AND RN (LUKAS) CONSIDER REPEAT CXR (SINCE HAD CONGESTION YESTERDAY AND NONE COMPLETED SINCE 10/10/18). CONSIDER SPEECH/LANG/COG EVAL PATIENT IS CONFUSED Addendum: 10/17/18 at 1229 by YAMILKA JACOBS HULL DRAFTER ADDED ENSURE ENLIVE BID PER RD RECOMMENDATIONS PO TRIALS WITH NECTAR THICK LIQUIDS SIP VIA CUP AND PUREED TSP DEMONSTRATED MILD-MODERATE INCREASE IN ORAL PREP AND OROPHARYNGEAL TRANSIT TIMES. TENDS TO CHEW PUREED AND NEED EXTRA SWALLOW WITH BOTH LIQUIDS AND PUREED. NO ORAL RESIDUE AND VOICE CLEAR POST SWALLOWS. NO OVERT S/S OF ASPIRATION BUT MAY HAVE SILENT ASP RISK AND ISSUES WITH RESPIRATION/SWALLOWING COORDINATION DUE TO RESP D/O.
--- NOTE | 2018-10-17 14:08 | Pulmonology Progress Note ---
Assessment/Plan Problems: (1) C. difficile colitis (2) Acute alcoholic intoxication (3) Hematuria (4) Alcohol withdrawal (5) Delirium tremens (6) ARDS (adult respiratory distress syndrome) Assessment & Plan: resolved Assessment/Plan doing better vancomycin po dc planning pt ot dvt prophylaxis. need another sample of stool to get discharged. Subjective ROS Limited/Unobtainable: No Constitutional: Reports: no symptoms Allergies: Coded Allergies: No Known Allergies (Unverified , 09/06/15) Objective Last 24 Hour Vital Signs Date Time Temp Pulse Resp B/P (MAP) Pulse Ox O2 Delivery O2 Flow Rate FiO2 10/17/18 12:00 97.7 79 18 100/64 (76) 99 10/17/18 09:00 Room Air Room Air 10/17/18 08:00 97.9 70 18 111/67 (82) 100 10/17/18 04:00 97.3 81 18 125/68 (87) 97 10/17/18 00:00 97.5 82 18 106/55 (72) 97 10/16/18 22:06 97 Nasal Cannula 2.0 28 10/16/18 22:06 Nasal Cannula 2.0 28 10/16/18 21:00 Room Air Room Air 10/16/18 20:00 99.0 84 18 108/67 (81) 99 10/16/18 16:00 98.2 102 17 104/66 (79) 98 Intake and Output 10/16/18 10/17/18 19:00 07:00 Intake Total 600 ml 180 ml Balance 600 ml 180 ml Intake Oral 600 ml 180 ml # Voids 5 3 # Bowel Movements 1 1 Objective General Appearance: WD/WN Lines, tubes and drains: peripheral HEENT: normocephalic, anicteric Neck: non-tender, normal alignment Respiratory/Chest: chest wall non-tender, lungs clear Breasts: no masses Cardiovascular/Chest: normal peripheral pulses Abdomen: normal bowel sounds Genitourinary/Rectal: normal genital Microbiology Date/Time Source Procedure Growth Status 10/16/18 15:23 Stool Clostridium difficile Toxin Assay - Final Complete Current Medications Medications (Trade) Dose Ordered Sig/Hoa Route PRN Reason Start Time Stop Time Status Last Admin Dose Admin Acetaminophen (Tylenol) 650 mg Q4H PRN ORAL fever (temp>100.5F) 10/10/18 23:30 11/08/18 15:22 Chlordiazepoxide (Librium) 25 mg Q6H PRN ORAL agitation 10/14/18 14:15 10/17/18 16:59 10/16/18 13:30 Chlorhexidine Gluconate (Zainab-Hex 2%) 1 applic DAILY@2000 TOPIC 10/11/18 20:00 11/02/18 19:59 10/16/18 20:46 Heparin Sodium (Porcine) (Heparin 5000 units/ml) 5,000 units EVERY 12 HOURS SUBQ 10/11/18 09:00 11/09/18 20:59 10/17/18 09:09 Midodrine (Pro-Amatine) 2.5 mg THREE TIMES A DAY ORAL 10/13/18 18:00 11/12/18 17:59 10/17/18 13:34 Quetiapine Fumarate (SEROquel) 50 mg Q12HR ORAL 10/11/18 09:00 10/27/18 08:59 10/17/18 09:08 Vancomycin HCl (Firvanq) 125 mg FOUR TIMES A DAY ORAL 10/11/18 09:00 10/18/18 08:59 10/17/18 13:35 Garret Petty MD Oct 17, 2018 14:08
--- NOTE | 2018-10-17 14:08 | NUR ---
EMERGENCY MEDICINE NURSE PRACTITIONERDATA ACQUISITION TECHNICIAN SI:C. DIFFICILE COLITIS . ARDS VS: BP 106/55, P 70, T 97.3, RR 18, SpO2 97 on 2.0L O2 NC IS:MIDODRINE 2.5mg HEPARIN SUBQ SEROQUEL 50mg VANCOMYCIN 125mg MED/SURG STATUS
--- NOTE | 2018-10-17 15:05 | NUR ---
REHAB WEEKLY PROGRESS NOTES: PATIENT DEMONSTRATED SLOW PROGRESS IN THERAPY. PATIENT IS LIMITED BY POOR ACTIVITY TOLERANCE AND COGNITIVE ISSUE. PATIENT REQUIRED CONSTANT VERBAL AND MANUAL REDIRECTIONS TO INITIATE AND COMPLETE MOBILITY TASKS. PATIENT CURRENTLY REQUIRE MOD-MAX FOR TRANSFER AND BED MOBILITIES. PATIENT IS ABLE IS UNABLE TO SIT AND STAND W/O MOD SUPPORT. PATIENT UNABLE TO AMBULATE AT THIS TIME. OVERALL FAIR ACTIVITY TOLERANCE. WILL CONTINUE WITH POC.
--- NOTE | 2018-10-17 15:59 | Internal Med Progress Note ---
Subjective Physician Name Benjamin Sterling Attending Physician Benjamin Sterling MD Current Medications Medications (Trade) Dose Ordered Sig/Hoa Route PRN Reason Start Time Stop Time Status Last Admin Dose Admin Acetaminophen (Tylenol) 650 mg Q4H PRN ORAL fever (temp>100.5F) 10/10/18 23:30 11/08/18 15:22 Chlordiazepoxide (Librium) 25 mg Q6H PRN ORAL agitation 10/14/18 14:15 10/17/18 16:59 10/16/18 13:30 Chlorhexidine Gluconate (Zainab-Hex 2%) 1 applic DAILY@1999 TOPIC 10/11/18 20:00 11/02/18 19:59 10/16/18 20:46 Heparin Sodium (Porcine) (Heparin 5000 units/ml) 5,000 units EVERY 12 HOURS SUBQ 10/11/18 09:00 11/09/18 20:59 10/17/18 09:09 Midodrine (Pro-Amatine) 2.5 mg THREE TIMES A DAY ORAL 10/13/18 18:00 11/12/18 17:59 10/17/18 13:34 Quetiapine Fumarate (SEROquel) 50 mg Q12HR ORAL 10/11/18 09:00 10/27/18 08:59 10/17/18 09:08 Vancomycin HCl (Firvanq) 125 mg FOUR TIMES A DAY ORAL 10/11/18 09:00 10/18/18 08:59 10/17/18 13:35 Allergies: Coded Allergies: No Known Allergies (Unverified , 09/06/15) Subjective awake, responsive, NAD, less agitate, on bilateral wrist restrain. Objective Last Vital Signs Date Time Temp Pulse Resp B/P (MAP) Pulse Ox O2 Delivery O2 Flow Rate FiO2 10/17/18 12:00 97.7 79 18 100/64 (76) 99 10/17/18 09:00 Room Air Room Air 10/16/18 22:06 2.0 28 Microbiology Date/Time Source Procedure Growth Status 10/16/18 15:23 Stool Clostridium difficile Toxin Assay - Final Complete Intake and Output 10/16/18 10/17/18 19:00 07:00 Intake Total 600 ml 180 ml Balance 600 ml 180 ml Intake Oral 600 ml 180 ml # Voids 5 3 # Bowel Movements 1 1 Objective General: No acute distress, awake and alert HEENT: NCAT, sclera anicteric, PERRL, EOMI. Neck: Supple, no significant jugular venous distention, Lungs: Good inspiratory effort, no Wheeze. Heart: Regular rate and rhythm, normal S1/S2, no murmur. Abdomen: soft, nontender, nondistended. Normoactive bowel sounds. / Rectal: Refused and deferred. Extremities: No Cyanosis , clubbing or edema, Left UE Piccline. Neuro: A&O x 3, Able to move all extremities Skin: warm, no rashes or lesions Assessment/Plan Assessment/Plan (1) Severe sepsis (2) Acute alcoholic intoxication (3) Nephrolithiasis (4) Hematuria (5). Atrial fibrillation with rapid ventricular rate converted to NSR, (6). Respiratory failure/ARDS (7). Morganella morganii UTI. (8). C.Diff colitis Assessment/Plan: Monitor cultures Librium, Abx: vanco PO Miralax PRN Heparin SQ Need placement. Benjamin Sterling MD Oct 17, 2018 15:59
--- NOTE | 2018-10-17 16:04 | NUR ---
*-* INSURANCE *-* UPDATED CLINICALS FAXED TO: FAXED TO THE [facility] FAX NUMBER [facility] [phone] Work Fax
[2018-10-17 16:06] VITALS: BP 99/62
--- NOTE | 2018-10-17 17:07 | NUR ---
DISCHARGE PLANNED PT WILL DC TO [facility] T- FOR NURSE TO NURSE REPORT [facility] WILL CABIN EQUIPMENT SUPERVISOR AT 1930
--- NOTE | 2018-10-17 17:39 | Nephrology Progress Note ---
Assessment/Plan Problem List: (1) ATN (acute tubular necrosis) (2) ARDS (adult respiratory distress syndrome) (3) Acute respiratory failure with hypoxemia Assessment: extubated 10/08 Assessment (1) Acute respiratory failure with hypoxemia-now extubated (2) ARDS (adult respiratory distress syndrome) (3) ATN (acute tubular necrosis)- resolved (4) Delirium tremens (5) Rapid atrial fibrillation Plan no labs today change Librium to PRN start midodrine stable from renal stand post extubation toilet Librium PRN Keep BP under control Avoid nephrotoxics monitor renal parameters Albumin boluses as needed k and phos and Mag as needed Subjective ROS Limited/Unobtainable: No Constitutional: Reports: malaise Objective Objective Last 24 Hour Vital Signs Date Time Temp Pulse Resp B/P (MAP) Pulse Ox O2 Delivery O2 Flow Rate FiO2 10/17/18 16:06 97.7 76 18 99/62 (74) 94 10/17/18 12:00 97.7 79 18 100/64 (76) 99 10/17/18 09:00 Room Air Room Air 10/17/18 08:00 97.9 70 18 111/67 (82) 100 10/17/18 04:00 97.3 81 18 125/68 (87) 97 10/17/18 00:00 97.5 82 18 106/55 (72) 97 10/16/18 22:06 97 Nasal Cannula 2.0 28 10/16/18 22:06 Nasal Cannula 2.0 28 10/16/18 21:00 Room Air Room Air 10/16/18 20:00 99.0 84 18 108/67 (81) 99 Intake and Output 10/16/18 10/17/18 19:00 07:00 Intake Total 600 ml 180 ml Balance 600 ml 180 ml Intake Oral 600 ml 180 ml # Voids 5 3 # Bowel Movements 1 1 Height (Feet): 5 Height (Inches): 6.00 Weight (Pounds): 133 General Appearance: no apparent distress Objective no other change Kaden Cordova MD Oct 17, 2018 17:39
--- NOTE | 2018-10-17 18:38 | NUR ---
NURSE NOTES: REPORT GIVEN TO WAYLON @ [facility]. SON JUSTIN MADE AWARE OF THE DISCHARGED. NO C/O PAIN/DISCOMFORT NOTED. WILL CONT TO MONITOR. Addendum: 10/17/18 at 1840 by HUGH MARIE LVN PERSONAL BELONGINGS REVIEWED AND NOTED. NO ACUTE RESP DISTRESS NOTED. WILL CONT TO MONITOR
--- NOTE | 2018-10-17 19:18 | NUR ---
HAND-OFF: Report given to Lotus.
--- NOTE | 2018-10-17 19:54 | NUR ---
NURSE NOTES: PRESSURE DRESSING PUT ON OLD PICC LINE SITE, NO BLEEDING NOTED.
--- NOTE | 2018-10-17 19:54 | NUR ---
NURSE NOTES: Patient in bed, awake. PICC line double lumen on left upper arm removed (40 cm) as ordered. No s/s distress or pain noted. Bed in lowest position, call light within reach, bed alarm on. Will continue to monitor.
[2018-10-17 20:30] VITALS: BP 106/65
--- NOTE | 2018-10-17 20:34 | NUR ---
DISCHARGE NURSE NOTES: PATIENT DISCHARGED, STABLE CONDITION, V/S STABLE. LEFT VIA AMBULANCE. BELONGINGS GIVEN TO AMBULANCE PERSONNEL. ID BAND REMOVED. Addendum: 10/17/18 at 2036 by TYREL KAYE RN RN DISCHARGE PACKET GIVEN TO AMBULANCE PERSONNEL.
--- NOTE | 2018-10-20 13:20 | Discharge Summary ---
Discharge Summary Discharge Summary _ DATE OF ADMISSION: 09/26/2018 DATE OF DISCHARGE: 10/17/2018 DISCHARGED BY: Dr. Sterling REASON FOR ADMISSION: 68 years old male with past medical history of EtOH abuse, presented to emergency department for evaluation of hematuria for 1 day. No use of blood thinners. No pain. Patient denied fever and chills. Alcohol level 142. Upon evaluation vital signs reveal low blood pressure 64/39 tachycardia with heart rate 114 and a low-grade fever 99.9. Laboratory workup revealed leukocytosis WBC 20.2, stable hemoglobin hematocrit. Platelet count 112 sodium potassium 3.2 BUN 13 creatinine 2.3 glucose 111. Total bili 1.2 direct bili 0.6 AST 115 ALT 39 albumin 3.2 lipase 230 urinalysis lactic acid 7.3 urinalysis revealed evidence of UTI and plus for protein +5 blood lactic acid initially 6.9 repeated 5.[address] of the abdomen and pelvis demonstrated multiple right-sided calculi obstructing calculi bilateral perinephric stranding.. Patient received fluid bolus blood pressure improved patient pancultured started on broad-spectrum antibiotics. Patient remained tachycardic and tremulous and likely out with a high risk for alcohol withdrawal. Patient received Ativan patient subsequently admitted to telemetry floor for further management While in ED patient developed rapid atrial fibrillation and was transferred to ICU ICU was subsequently cold CONSULTANTS: jet dyeing machine tender Dr. Leon laboratory animal facility supervisor Dr. Petty ID specialist Dr. Jimenez assembly machine tool setter Dr. Cordova [facility] COU[facility]SE: Patient admitted to telemetry floor. Patient started on IV fluids with a vitamins/banana bag. Patient started on empiric antibiotics. Civa protocol implemented. Anxiolytic were on board as needed ICU called emergency room physician to evaluate patient for respiratory distress patient appears to be hypoxic and hypotensive patient initially was on the BiPAP. Patient was intubated orally intubated central line was placed and patient started on pressors. Levo fed. Hemodynamic status was closely monitored with goal to keep mean arterial blood pressure above 65. Patient eventually was able to be weaned from the levo fed. Venous duplex bilateral lower extremity revealed no evidence of acute DVT. Echocardiogram revealed preserved ejection fraction 55-60% with no evidence of left ventricular hypertrophy no evidence of pericardial effusion. No evidence of wall motion abnormality. Right ventricular systolic pressure of 44 consistent. Patient was follow-up with a chest x-ray while intubated NG tube was inserted for medication and feeding. Patient was able to be extubated on 4 3 supplemental oxygen provided as needed to keep pulse oximetry above 92% pulmonary toilet provided as needed. Swallow evaluation was done afterwards patient passed swallow evaluation NG tube was discontinued patient started on diet as per speech therapist recommendation with strict aspiration reflux precaution. Patient was a mild to moderate dysphagia recommended diet for quality of life with strict aspiration caution and one-to-one feeding. DVT prophylaxis provided. 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 We will precaution maintained. X- ray. Beer Merchant closely follow. Patient exhibited tachycardia multifocal atrial tachycardia versus SVT. Patient was on amiodarone drip. Rate improved. Amiodarone discontinued. Midodrine started since blood pressure was low dose after pressors discontinue blood pressure stabilized cortisol level within normal limits. Patient was in atrial tachycardia in setting of sepsis and possible alcohol withdrawal. Rhythm stabilized telemetry discontinue amiodarone drip discontinued patient to remain off amiodarone. Urine culture revealed Morganella. Blood culture 322 on 329 were negative. Sputum culture was negative repeated urine culture was negative . Antibiotic provided as per ID recommendation. Patient completed treatment for UTI while in the hospital. Stool for C. difficile on 329 was positive. Patient undergone treatment for C. difficile colitis. Patient will require 1 additional day of oral vancomycin at the facility. Repeated CT stool for C. difficile on 411 was negative. Leukocytosis and fever resolved. Consumer Insight Manager followed. Renal parameters and electrolytes were closely monitored. Electrolytes corrected as needed. Nephrotoxins were avoided. Albumin boluses provided as needed for blood pressure management. Acute kidney injury resolved. Prior to discharge acute tubular necrosis resolved prior to discharge BUN 12 and creatinine down to 1.2. Able to be converted to normal sinus rhythm FINAL DIAGNOSES: Severe sepsis due to pyelonephritis Septic shock Pyelonephritis with Morganella due to nephrolithiasis Acute respiratory failure with hypoxemia , requiring oral intubation, status post extubation ARDS Hematuria-resolved Acute kidney injury/acute tubular necrosis -resolved Atrial fibrillation with rapid ventricular response Tachycardia/MAT versus SVT-resolved Acute alcohol intoxication Alcohol withdrawal with DT Elevated LFTs Thrombocytopenia (in the setting of sepsis and bone marrow suppression , secondary to ETOH) ETOH abuse DISCHARGE MEDICATIONS: List of medication was sent to accepting facility.. DISCHARGE INSTRUCTIONS: [facility] facility. Follow up with medical doctor at the facility. I have been assigned to dictate discharge summary for this account. I was not involved in the patient's management. Loida Soni NP Oct 20, 2018 13:20
== END 2018-10-17 20:32 | DRG 720 ==
LOC: EDUNIT# 14:07 → EDBD 14:07 → EMR 15:50 → 2E 16:49 → EDBEDREQSVC 17:33 → EDBEDREQ 17:33 → 2E 09-27 01:21 → 2W 09-27 19:21 → ICU 09-28 01:28 → 2W 10-09 16:00 → 4E 10-10 21:58
PROC: 5A1955Z Respiratory Ventilation, Greater than 96 Consecutive Hours (ICD-10-PCS; principal; 2018-09-29)
PROC: 0BH17EZ Insertion of Endotracheal Airway into Trachea, Via Natural or Artificial Opening (ICD-10-PCS; 2018-09-29)
PROC: 06HM33Z Insertion of Infusion Device into Right Femoral Vein, Percutaneous Approach (ICD-10-PCS; 2018-09-29)
PROC: 02HV33Z Insertion of Infusion Device into Superior Vena Cava, Percutaneous Approach (ICD-10-PCS; 2018-10-03)
PROC: B548ZZA Ultrasonography of Superior Vena Cava, Guidance (ICD-10-PCS; 2018-10-03)
DX: A41.9 Sepsis, unspecified organism (principal); N17.0 Acute kidney failure with tubular necrosis; J81.0 Acute pulmonary edema; R57.0 Cardiogenic shock; R65.21 Severe sepsis with septic shock; J96.01 Acute respiratory failure with hypoxia; D69.6 Thrombocytopenia, unspecified; A04.72 Enterocolitis due to Clostridium difficile, not specified as recurrent; J18.9 Pneumonia, unspecified organism; F10.231 Alcohol dependence with withdrawal delirium; I48.0 Paroxysmal atrial fibrillation; I47.1 Supraventricular tachycardia; N20.0 Calculus of kidney; J80 Acute respiratory distress syndrome; F10.229 Alcohol dependence with intoxication, unspecified; R31.9 Hematuria, unspecified; N12 Tubulo-interstitial nephritis, not specified as acute or chronic
CPT/HCPCS: 36415; 36569; 36600; 71045; 74018; 74176; 76937; 80048; 80053; 80061; 80329; 81001; 81003; 82043; 82140; 82150; 82248; 82533; 82550; 82570; 82607; 82746; 82803; 82977; 83036; 83605; 83690; 83735; 83880; 84100; 84133; 84300; 84443; 84484; 84550; 85007; 85025; 85610; 85651; 85730; 86140; 86850; 86900; 86901; 87040; 87070; 87086; 87181; 87205; 87324; 89050; 93005; 93306; 93970; 94002; 94003; 94640; 94660; 94760; 96361; 96365; 99291; J2250; J8499